=== PATIENT | female | born 1970 | race Caucasian/White ===

== ENCOUNTER 2016-12-11 09:04 | Emergency (ER) | payer BC ==
[~2016-12-11] VITALS: Ht 165.1 cm; Wt 107.5 kg
[~2016-12-11 09:04] MED LIST: ALPR0.5T7; CITA40TA11; CYCL10TA9; FAMO-119 PO; GLIM4TAB; HYDR-3816 PO; LISI10TA2; METF1000; OMEP40CA36 PO; OXYC-197 PO; PROM25TA14; VALA10004 PO
[2016-12-11 09:36] LABS: BASOPHILS % (AUTO) 0 % (0-10); EOSINOPHILS # (AUTO) 0.1 10^3/uL (0.0-0.3); EOSINOPHILS % (AUTO) 1 % (0-10); LYMPHOCYTES # (AUTO) 1.6 X 10^3 (1.0-4.0); LYMPHOCYTES % (AUTO) 30 % (12-44); MEAN CORPUSCULAR HEMOGLOBIN 27 PG (25-34); MEAN CORPUSCULAR HGB CONC 32 G/DL (32-36); MEAN CORPUSCULAR VOLUME 83 FL (80-99); MEAN PLATELET VOLUME 8.9 FL (7.4-10.4); MONOCYTES # (AUTO) 0.4 X 10^3 (0.0-1.0); MONOCYTES % (AUTO) 7 % (0-12); NEUTROPHILS # (AUTO) 3.2 X 10^3 (1.8-7.8); NEUTROPHILS % (AUTO) 62 % (42-75); PLATELET COUNT 316 10^3/uL (130-400); RED BLOOD COUNT 4.44 10^6/uL (4.35-5.85); RED CELL DISTRIBUTION WIDTH 15.3 % (10.0-14.5); WHITE BLOOD COUNT 5.1 10^3/uL (4.3-11.0)
--- NOTE | 2016-12-11 09:36 | ED Cardiac General ---
History of Present Illness General Chief Complaint: Chest Pain Stated Complaint: CHEST PAIN Source: patient Exam Limitations: no limitations History of Present Illness Time seen by provider: 09:34 Initial Comments Patient developed rapid heart rate, palpitations and mild anterior chest pressure shortly after taking Hydroxycut Hardcore dietary supplement. 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 Her coworkers did an EKG there which showed RDF@114 beats a minute without ischemia. She is feeling a little better on arrival here. She denies shortness of breath or chest pain currently. No vomiting or diarrhea. No cough. Allergies and Home Medications Allergies Coded Allergies: NSAIDS (Non-Steroidal Anti-Inflamma (Verified Adverse Reaction, Unknown, ) UNABLE TO TAKE DUE TO GASTRIC SURG Home Medications Alprazolam 0.5 Mg Tablet, #60 (Reported) Citalopram Hydrobromide 40 Mg Tablet, #30 (Reported) Cyclobenzaprine HCl 10 Mg Tablet, #60 (Reported) Glimepiride 4 Mg Tablet, #60 (Reported) Hydrocodone/Acetaminophen 1 Each Tablet, 1 EACH PO Q4H PRN for PAIN, (Reported) Lisinopril 10 Mg Tablet, #30 (Reported) Metformin HCl 1,000 Mg Tablet, #60 (Reported) Omeprazole 40 Mg Capsule.dr, 40 MG PO DAILY, #30 Ref 0 Prescribed by: LOKI KNIGHT on 09/26/15 1650 Oxycodone HCl/Acetaminophen 1 Each Tablet, 1 EACH PO Q4H PRN for PAIN, #20 Ref 0 Prescribed by: LOKI KNIGHT on 09/26/15 1650 Promethazine HCl 25 Mg Tablet, #21 (Reported) Valacyclovir HCl 1,000 Mg Tablet, 1,000 MG PO Q8H, #30 Ref 0 Prescribed by: LOKI KNIGHT on 09/26/15 1650 Review of Systems Constitutional: no symptoms reported EENTM: No Symptoms Reported Respiratory: No Symptoms Reported Cardiovascular: Chest Pain, Palpitations Gastrointestinal: No Symptoms Reported Genitourinary: No Symptoms Reported Musculoskeletal: no symptoms reported All Other Systems Reviewed Negative Unless Noted: Yes Past Ymapplg-Yicwss-Xboasr Hx Patient Social History Alcohol Use: Denies Use Recreational Drug Use: No Smoking Status: Never a Smoker Surgeries HX Surgeries: Yes (D&C x5) Surgeries: Abdominal, Appendectomy, Gallbladder, Hysterectomy Respiratory Hx Respiratory Disorders: No Cardiovascular Hx Cardiac Disorders: Yes Cardiac Disorders: Hypertension Neurological Hx Neurological Disorders: Yes Neurological Disorders: Headaches /Migraines 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 Genitourinary Hx Genitourinary Disorders: No Gastrointestinal Hx Gastrointestinal Disorders: No Musculoskeletal Hx Musculoskeletal Disorders: No Endocrine Hx Endocrine Disorders: Yes Endocrine Disorders: Diabetes, Non-Insulin dep HEENT HX ENT Disorders: No Psychosocial Hx Psychiatric Problems: Yes Behavioral Health Disorders: Anxiety, Depression Reviewed Nursing Assessment Reviewed/Agree w Nursing PMH: Yes Family Medical History Significant Family History: No Pertinent Family Hx Physical Exam Vital Signs Vital Sign - Last 12Hours 12/11/16 09:04 Temp 98.9 Pulse 100 Resp 18 B/P (MAP) 131/80 Capillary Refill : General Appearance: No Apparent Distress, WD/WN HEENT: PERRL/EOMI, Pharynx Normal Neck: Supple Respiratory: Lungs Clear, Normal Breath Sounds Cardiovascular: Regular Rate, Rhythm, No Edema, No Gallop, Normal Peripheral Pulses Gastrointestinal: Soft Extremity: Normal Inspection Neurologic/Psychiatric: Alert, No Motor/Sensory Deficits Skin: Normal Color, Warm/Dry Progress/Results/Core Measures Results/Orders Lab Results Laboratory Tests Test 12/11/16 09:29 Range/Units White Blood Count 5.1 4.3-11.0 10^3/uL Red Blood Count 4.44 4.35-5.85 10^6/uL Hemoglobin 11.8 11.5-16.0 G/DL Hematocrit 37 35-52 % Mean Corpuscular Volume 83 80-99 FL Mean Corpuscular Hemoglobin 27 25-34 PG Mean Corpuscular Hemoglobin Concent 32 32-36 G/DL Red Cell Distribution Width 15.3 H 10.0-14.5 % Platelet Count 316 130-400 10^3/uL Mean Platelet Volume 8.9 7.4-10.4 FL Neutrophils (%) (Auto) 62 42-75 % Lymphocytes (%) (Auto) 30 12-44 % Monocytes (%) (Auto) 7 0-12 % Eosinophils (%) (Auto) 1 0-10 % Basophils (%) (Auto) 0 0-10 % Neutrophils # (Auto) 3.2 1.8-7.8 X 10^3 Lymphocytes # (Auto) 1.6 1.0-4.0 X 10^3 Monocytes # (Auto) 0.4 0.0-1.0 X 10^3 Eosinophils # (Auto) 0.1 0.0-0.3 10^3/uL Basophils # (Auto) 0.0 0.0-0.1 10^3/uL Prothrombin Time 12.7 12.2-14.7 SEC INR Comment 1.0 0.8-1.4 Activated Partial Thromboplast Time 24 24-35 SEC Sodium Level 134 L 135-145 MMOL/L Potassium Level 4.2 3.6-5.0 MMOL/L Chloride Level 101 98-107 MMOL/L Carbon Dioxide Level 21 21-32 MMOL/L Anion Gap 12 5-14 MMOL/L Blood Urea Nitrogen 16 7-18 MG/DL Creatinine 1.10 0.60-1.30 MG/DL Estimat Glomerular Filtration Rate 53 BUN/Creatinine Ratio 15 Glucose Level 273 H 70-105 MG/DL Calcium Level 9.0 8.5-10.1 MG/DL Magnesium Level 1.7 L 1.8-2.4 MG/DL Total Bilirubin 0.3 0.1-1.0 MG/DL Aspartate Amino Transf (AST/SGOT) 15 5-34 U/L Alanine Aminotransferase (ALT/SGPT) 19 0-55 U/L Alkaline Phosphatase 58 40-136 U/L Troponin I < 0.30 <0.30 NG/ML Total Protein 6.6 6.4-8.2 G/DL Albumin 3.8 3.2-4.5 G/DL Labs were reviewed My Orders Orders - BRIAN MOCK MD Cbc With Automated Diff (12/11/16 09:11) Magnesium (12/11/16 09:11) Chest 1 View, Ap/Pa Only (12/11/16 09:11) Ekg Tracing (12/11/16 09:11) Cardiac Profile 1 (12/11/16 09:11) Comprehensive Metabolic Panel (12/11/16 09:11) Protime With Inr (12/11/16 09:11) Partial Thromboplastin Time (12/11/16 09:11) O2 (12/11/16 09:11) Monitor-Rhythm Ecg Trace Only (12/11/16 09:11) Saline Lock/Iv-Start (12/11/16 09:11) Vital Signs/I&O Vital Sign - Last 12Hours 12/11/16 09:04 Temp 98.9 Pulse 100 Resp 18 B/P (MAP) 131/80 Progress Note : Time: 10:13 Progress Note Heart rate 95 bpm, blood pressure 127/73. Feels better. advised to avoid Hydroxycut or other dietary supplements in the future. ECG Initial ECG Rhythm: S.Tach Initial ECG Intervals: Normal Initial ECG Impression: Nonspecific Changes Diagnostic Imaging Comments Date of Exam: 12/11/16 CHEST 1 VIEW, AP/PA ONLY Portable AP view of the chest Indication: Chest pain Comparison 09/26/15 Findings: The lungs are clear. The heart size is normal. There is no effusion or pneumothorax The mediastinum and alem appear unremarkable. Impression: Unremarkable study. Departure Impression Impression: Primary Impression: Chest pain Additional Impression: Sinus tachycardia Disposition: 01 HOME, SELF-CARE Condition: Stable Departure-Patient Inst. Referrals: PORSHA CARLSON DO (PCP/Family) Primary Care Physician Patient Instructions: Chest Pain (DC) BRIAN MOCK MD Dec 11, 2016 09:36
[2016-12-11 09:50] LABS: PROTHROMBIN TIME PATIENT 12.7 SEC (12.2-14.7)
[2016-12-11 09:59] LABS: ALANINE AMINOTRANSFERASE 19 U/L (0-55); ALBUMIN 3.8 G/DL (3.2-4.5); ANION GAP 12 MMOL/L (5-14); ASPARTATE AMINO TRANSFERASE 15 U/L (5-34); BILIRUBIN,TOTAL 0.3 MG/DL (0.1-1.0); BLOOD UREA NITROGEN 16 MG/DL (7-18); BUN/CREATININE RATIO 15; CARBON DIOXIDE 21 MMOL/L (21-32); CHLORIDE 101 MMOL/L (98-107); GFR ESTIMATED 53; GLUCOSE 273 MG/DL (70-105); MAGNESIUM 1.7 MG/DL (1.8-2.4); POTASSIUM 4.2 MMOL/L (3.6-5.0); SODIUM 134 MMOL/L (135-145); TOTAL PROTEIN 6.6 G/DL (6.4-8.2)
--- NOTE | 2016-12-11 10:04 | Diagnostic Imaging Report ---
Portable AP view of the chest Indication: Chest pain Comparison 09/26/15 Findings: The lungs are clear. The heart size is normal. There is no effusion or pneumothorax The mediastinum and alem appear unremarkable. Impression: Unremarkable study. Dictated by: Dictated on workstation # [id number]
[2016-12-11 10:25] VITALS: BP 133/57
--- OUTSIDE RECORDS SUMMARY | 2016-12-13 12:11 | XMS REPORT | Continuity of Care Document ---
Author Author [facility] Organization [facility] Address Unknown Phone Unavailable Allergies Active Description Code Type Severity Reaction Onset Reported/Identified Relationship to Patient Clinical Status Yes No Known Drug Allergies [id number] Drug Allergy Unknown N/ A 09/26/2015 Medications Problems Date Dx Coded Attending Type Code Diagnosis Diagnosed By 09/26/2015 LOKI LIMON Ot K29.70 09/26/2015 LOKI LIMON Ot R07.89 12/26/2015 ANJANA OLIVAREZ Ot Z12.31 01/08/2016 ANJANA OLIVAREZ Ot Z12.31 ENCNTR SCREEN MAMMOGRAM FOR MALIGNANT NE 01/13/2016 ANJANA OLIVAREZ Ot R92.8 OTH ABN AND INCONCLUSIVE FINDINGS ON DX 01/22/2016 ANJANA OLIVAREZ Ot R92.8 OTH ABN AND INCONCLUSIVE FINDINGS ON DX Procedures Results Test Result Range Complete blood count (CBC) with automated white blood cell (WBC) differential - 12/11/16 09:29 Blood leukocytes automated count (number/volume) 5.1 10*3/ uL 4.3-11.0 Blood erythrocytes automated count (number/volume) 4.44 10*6 /uL 4.35-5.85 Venous blood hemoglobin measurement (mass/volume) 11.8 g/dL 11.5-16.0 Blood hematocrit (volume fraction) 37 % 35-52 Automated erythrocyte mean corpuscular volume 83 [foz_us] 80-99 Automated erythrocyte mean corpuscular hemoglobin (mass per erythrocyte) 27 pg 25-34 Automated erythrocyte mean corpuscular hemoglobin concentration measurement ( mass/volume) 32 g/dL 32-36 Automated erythrocyte distribution width ratio 15.3 % 10.0-14.5 Automated blood platelet count (count/volume) 316 10*3/uL 130-400 Automated blood platelet mean volume measurement 8.9 [foz_us ] 7.4-10.4 Automated blood neutrophils/100 leukocytes 62 % 42-75 Automated blood lymphocytes/100 leukocytes 30 % 12-44 Blood monocytes/100 leukocytes 7 % 0-12 Automated blood eosinophils/100 leukocytes 1 % 0-10 Automated blood basophils/100 leukocytes 0 % 0-10 Blood neutrophils automated count (number/volume) 3.2 10*3 1.8-7.8 Blood lymphocytes automated count (number/volume) 1.6 10*3 1.0-4.0 Blood monocytes automated count (number/volume) 0.4 10*3 0.0-1.0 Automated eosinophil count 0.1 10*3/uL 0.0-0.3 Automated blood basophil count (count/volume) 0.0 10*3/uL 0.0-0.1 PT panel in platelet poor plasma by coagulation assay - 12/11/16 09:29 Prothrombin time (PT) in platelet poor plasma by coagulation assay 12.7 s 12.2-14.7 INR in platelet poor plasma or blood by coagulation assay 1.0 0.8-1.4 Activated partial thromboplastin time (aPTT) in platelet poor plasma bycoagulation assay - 12/11/16 09:29 Activated partial thromboplastin time (aPTT) in platelet poor plasma bycoagulation assay 24 s 24-35 Comprehensive metabolic panel - 12/11/16 09:29 Serum or plasma sodium measurement (moles/volume) 134 mmol/ L 135-145 Serum or plasma potassium measurement (moles/volume) 4.2 mmol/L 3.6-5.0 Serum or plasma chloride measurement (moles/volume) 101 mmol /L 98-107 Carbon dioxide 21 mmol/L 21-32 Serum or plasma anion gap determination (moles/volume) 12 mmol/L 5-14 Serum or plasma urea nitrogen measurement (mass/volume) 16 mg/dL 7-18 Serum or plasma creatinine measurement (mass/volume) 1.10 mg /dL 0.60-1.30 Serum or plasma urea nitrogen/creatinine mass ratio 15 NRG Serum or plasma creatinine measurement with calculation of estimated glomerular filtration rate 53 NRG Serum or plasma glucose measurement (mass/volume) 273 mg/dL 70-105 Serum or plasma calcium measurement (mass/volume) 9.0 mg/dL 8.5-10.1 Serum or plasma total bilirubin measurement (mass/volume) 0.3 mg/dL 0.1-1.0 Serum or plasma alkaline phosphatase measurement (enzymatic activity/volume) 58 U/L 40-136 Serum or plasma aspartate aminotransferase measurement (enzymatic activity/ volume) 15 U/L 5-34 Serum or plasma alanine aminotransferase measurement (enzymatic activity/volume ) 19 U/L 0-55 Serum or plasma protein measurement (mass/volume) 6.6 g/dL 6.4-8.2 Serum or plasma albumin measurement (mass/volume) 3.8 g/dL 3.2-4.5 Magnesium - 12/11/16 09:29 Magnesium 1.7 mg/dL 1.8-2.4 Serum or plasma troponin i.cardiac measurement (mass/volume) - 12/11/16 09:29 Serum or plasma troponin i.cardiac measurement (mass/volume) < ng/mL <0.30 Encounters ACCT No. Visit Date/Time Discharge Status Pt. Type Provider Facility Loc./Unit Complaint [id number] 09/26/2015 11:02:00 2015 17:09:00 DIS Emergency ANTONIA OLEARY, LOKI Corona [facility] ER [id number] 12/11/2016 09:39:00 Document Registration [id number] 01/10/2016 07:33:00 ACT Outpatient ANJANA OLIVAREZ [facility] RAD [id number] 12/25/2015 10:10:00 ACT Outpatient ANJANA OLIVAREZ [facility] RAD
== END 2016-12-11 10:27 | disposition home or self-care (01) ==
LOC: EDUNIT# 09:04 → ER 09:07
DX: R07.9 Chest pain, unspecified (principal); R00.2 Palpitations; I10 Essential (primary) hypertension; E11.9 Type 2 diabetes mellitus without complications; Z79.84 Long term (current) use of oral hypoglycemic drugs; Z79.899 Other long term (current) drug therapy
CPT/HCPCS: 36415; 71010; 80053; 83735; 84484; 85025; 85610; 85730; 93005; 93041

== ENCOUNTER → 2017-02-12 | Outpatient (CLI) | payer BC ==
--- NOTE | 2017-02-16 09:31 | Diagnostic Imaging Report ---
Bilateral screening mammogram The current study was also evaluated with a Computer Aided Detection (CAD) system. Indication: Screening. No current complaints stated on the questionnaire. COMPARISON: 01/10/16. FINDINGS: The breasts are composed of heterogeneously dense parenchyma which may decrease mammographic sensitivity. The prominent vascular calcifications are again noted without significant change. Allowing for technique and positional differences, no suspicious change is seen. IMPRESSION: No significant change. ACR BI-RADS Category 2: Benign findings. Result letter will be mailed to the patient. Note: At least 10% of breast cancer is not imaged by mammography. Dictated by: Dictated on workstation # [id number]
== END ==
LOC: RAD 13:13
DX: Z12.31 Encounter for screening mammogram for malignant neoplasm of breast (principal)
CPT/HCPCS: 77067

== ENCOUNTER 2017-02-19 12:03 | Emergency (ER) | payer BC ==
[~2017-02-19] VITALS: Ht 165.1 cm; Wt 107.5 kg
[2017-02-19] MEDS ORDERED: ROPI0.5T2 (12:14)
[2017-02-19] MEDS ORDERED: METR500T21 (12:14)
[2017-02-19] MEDS ORDERED: DULO60CA58 (12:14)
--- NOTE | 2017-02-19 12:20 | ED General ---
General Chief Complaint: Glucose Problems Stated Complaint: ELEVATED BLOOD SUGAR Nursing Triage Note: Patient reports having recently having an infection and since her glucose has been elevated. Nursing Sepsis Screen: No Definite Risk Source of Information: Patient Exam Limitations: No Limitations History of Present Illness Time Seen by Provider: 12:19 Initial Comments To ER from [facility] walk-in clinic with hyperglycemia. Her blood sugar was found to be too high to read there this morning on fingerstick. She was given 2 500 mm boluses of fluid and some Zofran. The nausea and vomiting subsided. Blood sugar upon arrival to ER is 396. She is treated for her diabetes with oral antidiabetic's. No insulin use. She states that she's had a partial hysterectomy but has had some whitish vaginal discharge for the past few days. She saw her RADIOGRAPHER TECHNOLOGIST who is Dr. Patiño in [place] yesterday. He diagnosed her with bacterial vaginosis and gave her 2 g of Flagyl last night orally. She denies any fevers or pain. Timing/Duration: 1-2 Days Severity: Moderate Associated Systoms: Nausea/Vomiting Allergies and Home Medications Allergies Coded Allergies: NSAIDS (Non-Steroidal Anti-Inflamma (Verified Adverse Reaction, Unknown, ) UNABLE TO TAKE DUE TO GASTRIC SURG Home Medications Duloxetine HCl 60 Mg Capsule., #30 (Reported) Glimepiride 4 Mg Tablet, #60 (Reported) Lisinopril 10 Mg Tablet, #30 (Reported) Metformin HCl 1,000 Mg Tablet, #60 (Reported) Metronidazole 500 Mg Tablet, #4 (Reported) Ropinirole HCl 0.5 Mg Tablet, #60 (Reported) Constitutional: see HPI EENTM: see HPI Respiratory: no symptoms reported Cardiovascular: no symptoms reported Genitourinary: no symptoms reported Musculoskeletal: no symptoms reported Skin: no symptoms reported Psychiatric/Neurological: No Symptoms Reported Hematologic/Lymphatic: No Symptoms Reported Past Jxqrbay-Slxncx-Rklghh Hx Patient Social History Alcohol Use: Denies Use Recreational Drug Use: No Recent Foreign Travel: No Contact w/Someone Who Travel: No Recent Infectious Disease Expo: No Recent Hopitalizations: No Surgeries HX Surgeries: Yes (D&C x5 GASTRIC BY PASS) Surgeries: Abdominal, Appendectomy, Gallbladder, Hysterectomy Respiratory Hx Respiratory Disorders: No Cardiovascular Hx Cardiac Disorders: Yes Cardiac Disorders: Hypertension Neurological Hx Neurological Disorders: Yes Neurological Disorders: Headaches /Migraines Reproductive System [employer] History: Hysterectomy Genitourinary Hx Genitourinary Disorders: No Gastrointestinal Hx Gastrointestinal Disorders: No Musculoskeletal Hx Musculoskeletal Disorders: Yes Endocrine Hx Endocrine Disorders: Yes Endocrine Disorders: Diabetes, Non-Insulin dep HEENT HX ENT Disorders: No Psychosocial Hx Psychiatric Problems: Yes Behavioral Health Disorders: Anxiety, Depression Family Medical History Significant Family History: No Pertinent Family Hx Physical Exam Vital Signs Vital Sign - Last 12Hours 02/19/17 12:09 Temp 98.3 Pulse 99 Resp 18 B/P (MAP) 142/98 Pulse Ox 99 O2 Delivery Room Air Capillary Refill : Less Than 3 Seconds General Appearance: No Apparent Distress, WD/WN Eyes: Bilateral Eye EOMI, Bilateral Eye Normal Inspection, Bilateral Eye PERRL HEENT: PERRL/EOMI, TMs Normal Neck: Full Range of Motion, Normal Inspection Respiratory: Normal Breath Sounds, No Accessory Muscle Use, No Respiratory Distress Cardiovascular: Regular Rate, Rhythm, Normal Peripheral Pulses Gastrointestinal: Non Tender, Soft Extremity: Normal Capillary Refill, Normal Inspection Neurologic/Psychiatric: Alert, Oriented x3, No Motor/Sensory Deficits Skin: Normal Color, Warm/Dry Progress/Results/Core Measures Results/Orders Lab Results Laboratory Tests Test 02/19/17 12:10 02/19/17 12:13 02/19/17 13:20 02/19/17 13:24 Range/Units White Blood Count 9.3 4.3-11.0 10^3/uL Red Blood Count 4.57 4.35-5.85 10^6/uL Hemoglobin 13.0 11.5-16.0 G/DL Hematocrit 39 35-52 % Mean Corpuscular Volume 85 80-99 FL Mean Corpuscular Hemoglobin 28 25-34 PG Mean Corpuscular Hemoglobin Concent 34 32-36 G/DL Red Cell Distribution Width 14.0 10.0-14.5 % Platelet Count 294 130-400 10^3/uL Mean Platelet Volume 9.3 7.4-10.4 FL Neutrophils (%) (Auto) 81 H 42-75 % Lymphocytes (%) (Auto) 13 12-44 % Monocytes (%) (Auto) 5 0-12 % Eosinophils (%) (Auto) 1 0-10 % Basophils (%) (Auto) 0 0-10 % Neutrophils # (Auto) 7.5 1.8-7.8 X 10^3 Lymphocytes # (Auto) 1.3 1.0-4.0 X 10^3 Monocytes # (Auto) 0.5 0.0-1.0 X 10^3 Eosinophils # (Auto) 0.1 0.0-0.3 10^3/uL Basophils # (Auto) 0.0 0.0-0.1 10^3/uL Sodium Level 134 L 135-145 MMOL/L Potassium Level 4.5 3.6-5.0 MMOL/L Chloride Level 101 98-107 MMOL/L Carbon Dioxide Level 21 21-32 MMOL/L Anion Gap 12 5-14 MMOL/L Blood Urea Nitrogen 14 7-18 MG/DL Creatinine 1.18 0.60-1.30 MG/DL Estimat Glomerular Filtration Rate 49 BUN/Creatinine Ratio 12 Glucose Level 454 *H 70-105 MG/DL Calcium Level 8.7 8.5-10.1 MG/DL Total Bilirubin 0.3 0.1-1.0 MG/DL Aspartate Amino Transf (AST/SGOT) 15 5-34 U/L Alanine Aminotransferase (ALT/SGPT) 18 0-55 U/L Alkaline Phosphatase 54 40-136 U/L Total Protein 6.8 6.4-8.2 G/DL Albumin 3.7 3.2-4.5 G/DL Glucometer 396 H 245 H 70-110 MG/DL Urine Color YELLOW Urine Clarity CLEAR Urine pH 5 5-9 Urine Specific [place] 1.010 L 1.016-1.022 Urine Protein NEGATIVE NEGATIVE Urine Glucose (UA) 4+ H NEGATIVE Urine Ketones NEGATIVE NEGATIVE Urine Nitrite NEGATIVE NEGATIVE Urine Bilirubin NEGATIVE NEGATIVE Urine Urobilinogen NORMAL NORMAL MG/DL Urine Leukocyte Esterase 1+ H NEGATIVE Urine RBC (Auto) NEGATIVE NEGATIVE Urine RBC NONE /HPF Urine WBC 2-5 /HPF Urine Squamous Epithelial Cells 2-5 /HPF Urine Crystals NONE /LPF Urine Bacteria TRACE /HPF Urine Casts NONE /LPF Urine Mucus NEGATIVE /LPF Urine Culture Indicated NO My Orders Orders - JEANNINE CLARKE APRN Cbc With Automated Diff (02/19/17 12:17) Comprehensive Metabolic Panel (02/19/17 12:17) Saline Lock/Iv-Start (02/19/17 12:17) Ns Iv 1000 Ml (Sodium Chloride 0.9%) (02/19/17 12:30) Insulin (Regular) Human (Humulin R (Per (02/19/17 12:30) Ua Culture If Indicated (02/19/17 12:28) Accucheck Stat ONCE (02/19/17 13:17) Accucheck Stat ONCE (02/19/17 13:17) Medications Given in ED Current Medications Medications Dose Ordered Sig/Lidya Route Start Time Stop Time Status Last Admin Dose Admin Insulin Human Regular 4 unit ONCE ONCE IV 02/19/17 12:30 02/19/17 12:31 DC 02/19/17 12:22 4 UNIT Vital Signs/I&O Vital Sign - Last 12Hours 02/19/17 12:09 Temp 98.3 Pulse 99 Resp 18 B/P (MAP) 142/98 Pulse Ox 99 O2 Delivery Room Air Blood Pressure Mean: 113 Departure Impression Impression: Primary Impression: Hyperglycemia Disposition: 01 HOME, SELF-CARE Condition: Stable Departure-Patient Inst. Decision time for Depature: 13:45 Referrals: PORSHA CARLSON DO (PCP/Family) Primary Care Physician Patient Instructions: Hyperglycemia, Adult Add. Discharge Instructions: 1. Go home, continue to drink plenty of fluids. Check your blood sugar 2-3 times throughout the remainder of today.. Return to ER for any worsening All discharge instructions reviewed with patient and/or family. Voiced understanding. JEANNINE CLARKE APRN Feb 19, 2017 12:20
[2017-02-19] MEDS: inSUlin (REGULAR) HUMAN 1 UNIT/0.01 ML (CHARGE PER UNIT) IV ONE (12:22)
[2017-02-19] MEDS: NS IV 1000 ML 1,000 ML IV SCH (12:23)
[2017-02-19 12:25] LABS: BASOPHILS % (AUTO) 0 % (0-10); EOSINOPHILS # (AUTO) 0.1 10^3/uL (0.0-0.3); EOSINOPHILS % (AUTO) 1 % (0-10); LYMPHOCYTES # (AUTO) 1.3 X 10^3 (1.0-4.0); LYMPHOCYTES % (AUTO) 13 % (12-44); MEAN CORPUSCULAR HEMOGLOBIN 28 PG (25-34); MEAN CORPUSCULAR HGB CONC 34 G/DL (32-36); MEAN CORPUSCULAR VOLUME 85 FL (80-99); MEAN PLATELET VOLUME 9.3 FL (7.4-10.4); MONOCYTES # (AUTO) 0.5 X 10^3 (0.0-1.0); MONOCYTES % (AUTO) 5 % (0-12); NEUTROPHILS # (AUTO) 7.5 X 10^3 (1.8-7.8); NEUTROPHILS % (AUTO) 81 % (42-75); PLATELET COUNT 294 10^3/uL (130-400); RED BLOOD COUNT 4.57 10^6/uL (4.35-5.85); WHITE BLOOD COUNT 9.3 10^3/uL (4.3-11.0)
[2017-02-19 12:38] LABS: ALBUMIN 3.7 G/DL (3.2-4.5); BILIRUBIN,TOTAL 0.3 MG/DL (0.1-1.0); CALCIUM 8.7 MG/DL (8.5-10.1); CREATININE SERUM 1.18 MG/DL (0.60-1.30); POTASSIUM 4.5 MMOL/L (3.6-5.0); TOTAL PROTEIN 6.8 G/DL (6.4-8.2)
[2017-02-19 13:36] LABS: BILIRUBIN,URINE NEGATIVE (NEGATIVE); KETONES,URINE NEGATIVE (NEGATIVE); LEUKOCYTE ESTERASE ,URINE 1+ (NEGATIVE); NITRITE,URINE NEGATIVE (NEGATIVE); PH,URINE 5 (5-9); PROTEIN,URINE NEGATIVE (NEGATIVE); UROBILINOGEN,URINE NORMAL (NORMAL)
[2017-02-19 13:56] VITALS: BP 119/72
== END 2017-02-19 13:57 | disposition home or self-care (01) ==
LOC: EDUNIT# 12:03 → ER 12:06
DX: E11.65 Type 2 diabetes mellitus with hyperglycemia (principal); I10 Essential (primary) hypertension; Z79.84 Long term (current) use of oral hypoglycemic drugs; Z79.899 Other long term (current) drug therapy
CPT/HCPCS: 36415; 80053; 81000; 82962; 85025

== ENCOUNTER → 2017-12-22 | Outpatient (CLI) | payer BC ==
[~2017-12-22] MED LIST changes: +DULO60CA58; +HYDR-34 PO; -HYDR-3816 PO; +METR500T21; +ROPI0.5T2
--- NOTE | 2017-12-22 08:36 | Diagnostic Imaging Report ---
CLINICAL INDICATION: Patient with memory loss. EXAM: Axial CT scan of brain performed without IV contrast. COMPARISON: None. FINDINGS: There is no evidence of acute cerebral infarct, intracranial hemorrhage, or gross mass effect. The brain parenchymal volume appears appropriate for patient's age. There is normal burns-white matter distinction. There is no significant midline shift or herniation. There is no evidence of hydrocephalus. The basal cisterns are unremarkable. The skull, extracranial soft tissue, and orbits are unremarkable. There is minimal ethmoid sinus mucosal thickening. Temporal bones show no significant abnormality. IMPRESSION: Minimal ethmoid sinus mucosal thickening. Otherwise, unremarkable CT scan of brain. Dictated by: Dictated on workstation # [id number]
== END ==
LOC: RAD 08:05
PROVIDERS: ATTEND Nurse Practitioner Family
DX: R41.3 Other amnesia (principal); G44.52 New daily persistent headache (NDPH)
CPT/HCPCS: 70450

== ENCOUNTER 2018-01-15 14:58 | Emergency (ER) | payer BC ==
[~2018-01-15] VITALS: Ht 165.1 cm; Wt 102.5 kg
[~2018-01-15 14:58] MED LIST changes: -METF1000; +METF10002
--- OUTSIDE RECORDS SUMMARY | 2018-01-15 15:03 | XMS REPORT ---
Author Author CLAUDIA JACOBO Organization [facility] Address [address] [place] [address] Care Team Providers Care Information Assurance Officer Name Role Phone CLAUDIA JACOBO Unavailable PROBLEMS Type Condition ICD9-CM Code [id number] Code Onset Dates Condition Status SNOMED Code Problem Chronic pain syndrome G89.4 Active 498539817 Problem Diabetes E11.9 Active 908947132 Problem Anxiety F41.9 Active 73172724 Problem Essential hypertension I10 Active 58247149 Problem Severe single current episode of major depressive disorder, 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 Active 93370592 Problem Chronic tension-type headache, intractable G44.221 Active 491062682 Problem Obesity (BMI 30-39.9) E66.9 Active 094960218 Problem Restless legs G25.81 Active 54364597 ALLERGIES No Known Allergies SOCIAL HISTORY Never Assessed PLAN OF CARE Activity Details Follow Up prn Reason: VITAL SIGNS Height 65 in 2017-02-19 Weight 247.8 lbs 2017-02-19 Temperature 97.0 degrees Fahrenheit 2017-02-19 Heart Rate 104 bpm 2017-02-19 Respiratory Rate 22 2017-02-19 BMI 41.23 kg/m2 2017-02-19 Blood pressure systolic 136 mmHg 2017-02-19 Blood pressure diastolic 82 mmHg 2017-02-19 MEDICATIONS Medication Instructions Dosage Frequency Start Date End Date Duration Status Xanax 0.5 MG Orally Twice a day 1 tablet 12h Active Ropinirole HCl 0.5 MG Orally Once a day 1 tablet 1 to 3 hours before bedtime 24h Active Metformin HCl 1000 MG Orally Twice a day 1 tablet with meals 12h Active Paradox 7.5-325 MG Orally every 6 hrs 1 tablet as needed 6h Active Cymbalta 60 MG Orally Once a day 1 capsule 24h Active Lisinopril 10 MG Orally Once a day 1 tablet 24h Active GlyBURIDE 5 MG Orally Once a day 1 tablet with breakfast or the first main meal of the day 24h Active RESULTS Name Result Date Reference Range UA LONG DIP (IN HOUSE) 2017-02-19 Lot # [id number] Exp date 2017 04 30 Clarity clear Color 1.005 Odor none GLU 2+ REECE negative KET negative SG <1.005 BLO negative pH 6.0 Protein negative URO 0.2 NIT negative CHEPE negative Lot # [id number] Exp date 2017 10 A1C (IN HOUSE) 2017-02-19 A1C IN HOUSE 10.3 4.3 - 5.6 % Previous A1c Lot [id number] Exp date 11/2018 GLUCOSE FINGERSTICK (IN HOUSE) 2017-02-19 GLU FINGERSTICK 419mg/dl PC + Lot # [id number] Exp date 10/2017 PROCEDURES Procedure Date Ordered Result Body Site IV INFUSION 2017-02-19 N/A GLUCOSE BLOOD TEST February 19, 2017 THER/PROPH/DIAG INJ, IV PUSH February 19, 2017 HYDRATION IV INFUSION, INIT February 19, 2017 URINALYSIS, AUTO, W/O SCOPE February 19, 2017 ZOFRAN (IV) 2 MG/ML (PER 1 MG) 40 MG/20 ML February 19, 2017 GLYCATED HEMOGLOBIN TEST February 19, 2017 IMMUNIZATIONS Vaccine Route Administration Date Status ZOFRAN (IV) 2 MG/ML (PER 1 MG) 40 MG/20 ML IV Intravenous February 19, 2017 Administered MEDICAL (GENERAL) HISTORY Type Description Date Medical History HTN Medical History RLS Medical History Diabetes Medical History Fibromyalgia Medical History Depression Medical History Anxiety Surgical History Gallbladder Surgical History Appendectomy Surgical History Exploratory Lap Surgical History Foot Surgery Surgical History Gastric Bypass Surgical History D&C X 5 Surgical History TVH Surgical History Abdominal Plasty Hospitalization History Post Surgeries
--- OUTSIDE RECORDS SUMMARY | 2018-01-15 15:04 | XMS REPORT ---
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 Name Role Phone VINAY Rooney Unavailable PROBLEMS Type Condition ICD9-CM Code [id number] Code Onset Dates Condition Status SNOMED Code Problem Essential hypertension I10 Active 97156170 Problem roasterman 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.4 Active 774114820 Problem Type 2 diabetes mellitus without complications E11.9 Active 383766838 Problem Memory changes R41.3 Active 470980793 Problem New daily persistent headache G44.52 Active 484692309961380 Problem Grief F43.20 Active 006611646 Problem Generalized anxiety disorder F41.1 Active 04760804 Problem Hypersomnia G47.10 Active 00006999 Problem Moderate episode of recurrent major depressive disorder F33.1 Active 235852890 Problem Restless legs G25.81 Active 22624135 Problem Chronic pain syndrome G89.4 Active 524657754 Problem High serum estradiol R79.89 Active 009919721 Problem Chronic tension-type headache, intractable G44.221 Active 759934219 Problem History of vitamin D deficiency Z86.39 Active 694065163 Problem Obesity (BMI 30-39.9) E66.9 Active [id number] ALLERGIES No Known Allergies ENCOUNTERS Encounter Location Date Diagnosis [facility] [id number] [address] Dec, [facility] [id number], [place] [address] Dec, [facility] [id number] [place] [address] Nov, Moderate episode of recurrent major depressive disorder F33.1 and Generalized anxiety disorder F41.1 [facility] [id number] [place] [address] Nov, [place] [address] [place] [address] Nov, Chronic pain syndrome G89.4 ; Hypersomnia G47.10 ; Memory changes R41.3 ; New daily persistent headache G44.52 ; Post-menopausal Z78.0 and History of gastric surgery Z98.890 [place] [id number] [place] [address] Nov, [place] [id number] [place] [address] Nov, Chronic pain syndrome G89.4 [place] [id number] [place] [address] Oct, Moderate episode of recurrent major depressive disorder F33.1 and Generalized anxiety disorder F41.1 [place] [id number] [place] [address] Oct, Type 2 diabetes mellitus without complications E11.9 ; Essential hypertension I10 ; Restless legs G25.81 ; Chronic tension-type headache, intractable G44.221 ; Nasal congestion R09.81 ; penitentiary 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.4 and Chronic pain syndrome G89.4 [place] [id number] [place] [address] Oct, Moderate episode of recurrent major depressive disorder F33.1 [place] [id number] [place] [address] Oct, [place] [id number] [place] [address] Sep, Moderate episode of recurrent major depressive disorder F33.1 and Generalized anxiety disorder F41.1 [place] [id number] [place] [address] Sep, Moderate episode of recurrent major depressive disorder F33.1 ; Generalized anxiety disorder F41.1 and Grief F43.20 [place] [address], [place] [address] Sep, Moderate episode of recurrent major depressive disorder F33.1 [place] [id number] [place] [address] Sep, [place] [id number] [place] [address] Aug, Chronic pain syndrome G89.4 [place] [id number] [place] [address]- [address] Aug, [place] [id number] [place] [address] Aug, Moderate episode of recurrent major depressive disorder F33.1 ; Generalized anxiety disorder F41.1 and Grief F43.20 [place] [id number] [place] [address] Aug, [place] [id number] [place] [address] Aug, [place] [id number] [place] [address] Jul, Chronic pain syndrome G89.4 ; Positive depression screening Z13.89 ; Essential hypertension I10 ; Restless legs G25.81 ; Severe single current episode of major depressive disorder, 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 ; Anxiety F41.9 ; Chronic tension-type headache, intractable G44.221 ; Type 2 diabetes mellitus without complications E11.9 ; roasterman 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.4 ; Right elbow pain M25.521 and Family history of pancreatic cancer Z80.0 [place] [id number] [place] [address] Jun, Chronic pain syndrome G89.4 [place] [id number] [place] [address] May, Chronic pain syndrome G89.4 and Anxiety F41.9 [place] [id number] [place] [phone] Apr, Diabetes E11.9 ; Obesity (BMI 30-39.9) E66.9 ; Severe single current episode of major depressive disorder, 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 ; Restless legs G25.81 ; Essential hypertension I10 ; Chronic tension- type headache, intractable G44.221 ; Anxiety F41.9 ; Chronic pain syndrome G89.4 and Nausea R11.0 [facility] [id number] [address] Mar, Diabetes E11.9 ; Obesity (BMI 30-39.9) E66.9 ; Severe single current episode of major depressive disorder, 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 ; Restless legs G25.81 ; Essential hypertension I10 ; Chronic tension- type headache, intractable G44.221 ; Anxiety F41.9 and Chronic pain syndrome G89.4 [facility] [id number], [place] [address] Feb, Diaphoresis R61 ; Diabetes E11.9 ; Elevated blood sugar R73.9 and Acute vomiting R11.10 [facility] [address] [facility] [id number] [id number] Mar, Dental examination V72.2 IMMUNIZATIONS No Known Immunizations SOCIAL HISTORY Never Assessed REASON FOR VISIT Establish Care. Diabetes concerns. Blood sugar was over 500 a couple of months ago and was started on insulin by Dr Rosales. MARTÍN Oconnell PLAN OF CARE Activity Details Follow Up 4 Weeks Reason:diabetes, htn fasting labs VITAL SIGNS Height 65 in 2017-04-09 Weight 248 lbs 2017-04-09 Temperature 98.5 degrees Fahrenheit 2017-04-09 Heart Rate 88 bpm 2017-04-09 Respiratory Rate 18 2017-04-09 BMI 41.26 kg/m2 2017-04-09 Blood pressure systolic 110 mmHg 2017-04-09 Blood pressure diastolic 78 mmHg 2017-04-09 MEDICATIONS Medication Instructions Dosage Frequency Start Date End Date Duration Status Cyclobenzaprine HCl 10 mg Orally 2 times a day 1 tablet as needed 12h Active [place] 7.5-325 MG Orally every 6 hrs 1 tablet as needed 6h Mar, Active Xanax 0.5 MG Orally Twice a day 1 tablet 12h Active Topamax 25 MG Orally once per day x 7 then bid 1 tablet Mar, 30 day(s) Active Lisinopril 10 mg Orally Once a day 1 tablet 24h Active Phentermine HCl 37.5 MG Orally Once a day 1 capsule 24h Active Duloxetine HCl 60 mg Orally Once a day 1 capsule 24h Active Januvia 100 mg Orally Once a day 1 tablet 24h Mar, 30 day(s) Active Ropinirole HCl 0.5 MG Orally at bedtime 1-2 tablets Active Lantus SoloStar 100 UNIT/ML Subcutaneous at bedtime 14 units Active Metformin HCl 1000 MG Orally Twice a day 1 tablet with meals 12h Active RESULTS Name Result Date Reference Range A1C (IN HOUSE) 2017-04-09 A1C IN HOUSE 8.3 4.3 - 5.6 % Previous A1c 10.3 Lot [id number] Exp date 12/2018 PROCEDURES Procedure Date Ordered Result Body Site GLYCATED HEMOGLOBIN TEST April 09, 2017 INSTRUCTIONS MEDICATIONS ADMINISTERED No Known Medications MEDICAL (GENERAL) HISTORY Type Description Date Medical History HTN Medical History RLS Medical History Diabetes- Type 2 Medical History Fibromyalgia Medical History Depression Medical History Anxiety Medical History stress/clustered headaches Surgical History Gallbladder 1986 Surgical History Appendectomy Surgical History Exploratory Lap Surgical History Foot Surgery Surgical History Gastric Bypass Surgical History D&C X 5 Surgical History Partial hysterectomy Surgical History Abdominal Plasty Surgical History Carpal tunnel repair bilaterally and trigger finger release x2. 06/2017 Hospitalization History Post Surgeries Hospitalization History denies any past psych hospitalization
--- OUTSIDE RECORDS SUMMARY | 2018-01-15 15:04 | XMS REPORT | Continuity of Care Document ---
Author Author [facility] Organization [facility] Address Unknown Phone Unavailable Allergies Active Description Code Type Severity Reaction Onset Reported/Identified Relationship to Patient Clinical Status Yes NO KNOWN DRUG ALLERGIES UNKNOWN NO KNOWN DRUG ALLERG Yes No Known Drug Allergies [id number] Drug Allergy Unknown N/A 09/26/2015 Yes NSAIDS (Non-Steroidal Anti-Inflamma [id number] Drug Allergy Unknown N/A Medications Medication Packaging Start Date Stop Date Route Dosage Sig ALPRAZOLAM TAB 0.5 MG (XANAX) Dose(s) 06/03/2017 06/12/2017 QHS&2100 ROPINIROLE TAB 1 MG (REQUIP) Dose(s) 06/03/2017 06/09/2017 QHS&2100 NORMAL SALINE 1000CC IV BAG INJ 0.9 % (NS 1000CC IV BAG) ml 06/10/2017 06/11/2017 CONTINUOUSEVERY 0 Hour DULOXETINE CAP 30 MG (CYMBALTA) Dose(s) 06/10/2017 06/16/2017 QAM&0800 SITAGLIPTIN TAB 100 MG (JANUVIA) Dose(s) 06/10/2017 06/16/2017 QAM&0800 CEFAZOLIN VIAL INJ 1 GM (ANCEF) GM 06/10/2017 06/10/2017 ONCE&0945 LACTATED RINGERS 1000CC IV BAG INJ ml 06/10/2017 06/17/2017 CONTINUOUSEVERY 0 Hour LACTATED RINGERS 1000CC IV BAG INJ ml 08/05/2017 08/12/2017 CONTINUOUSEVERY 0 Hour NORMAL SALINE 1000CC IV BAG INJ 0.9 % (NS 1000CC IV BAG) ml 08/05/2017 08/20/2017 CONTINUOUSEVERY 0 Hour CEFAZOLIN VIAL INJ 1 GM (ANCEF) GM 08/05/2017 08/05/2017 ONCE&1130 Problems Date Dx Coded Attending Type Code Diagnosis Diagnosed By 09/26/2015 LOKI LIMON Ot K29.70 GASTRITIS, UNSPECIFIED, WITHOUT BLEEDING 09/26/2015 ANTONIA OLEARY LOKI Chloe Ot R07.89 OTHER CHEST PAIN 12/26/2015 ANJANA OLIVAREZ Ot Z12.31 01/08/2016 ANJANA OLIVAREZ Ot Z12.31 ENCNTR SCREEN MAMMOGRAM FOR MALIGNANT NE 01/13/2016 CAROLINA LOEARY, ANJANA [place] Ot R92.8 OTH ABN AND INCONCLUSIVE FINDINGS ON DX 01/22/2016 ANJANA OLIVAREZ Ot R92.8 OTH ABN AND INCONCLUSIVE FINDINGS ON DX 12/11/2016 ANJANA OLIVAREZ Ot Z12.31 ENCNTR SCREEN MAMMOGRAM FOR MALIGNANT NE 12/11/2016 ANJANA OLIVAREZ Ot R92.8 OTH ABN AND INCONCLUSIVE FINDINGS ON DX 12/11/2016 BRIAN MOCK MD Ot E11.9 TYPE 2 DIABETES MELLITUS WITHOUT COMPLIC 12/11/2016 BRIAN MOCK MD Ot I10 ESSENTIAL (PRIMARY) HYPERTENSION 12/11/2016 BRIAN MOCK MD Ot R00.2 PALPITATIONS 12/11/2016 BRIAN MOCK MD A Ot R07.9 CHEST PAIN, UNSPECIFIED 12/11/2016 BRIAN MOCK MD A Ot Z79.84 [facility] (CURRENT) USE OF ORAL HYPOGLYC 12/11/2016 BRIAN MOCK MD A Ot Z79.899 OTHER [facility] (CURRENT) DRUG THERAPY 12/11/2016 ANJANA OLIVAREZ Ot Z12.31 ENCNTR SCREEN MAMMOGRAM FOR MALIGNANT NE 12/11/2016 ANJANA OLIVAREZ Ot R92.8 OTH ABN AND INCONCLUSIVE FINDINGS ON DX 12/11/2016 ANJANA OLIVAREZ Ot Z12.31 ENCNTR SCREEN MAMMOGRAM FOR MALIGNANT NE 12/11/2016 ANJANA OLIVAREZ Ot R92.8 OTH ABN AND INCONCLUSIVE FINDINGS ON DX 12/11/2016 BRIAN MOCK MD Ot E11.9 TYPE 2 DIABETES MELLITUS WITHOUT COMPLIC 12/11/2016 BRIAN MOCK MD A Ot I10 ESSENTIAL (PRIMARY) HYPERTENSION 12/11/2016 BRIAN MOCK MD A Ot R00.2 PALPITATIONS 12/11/2016 BRIAN MOCK MD Ot R07.9 CHEST PAIN, UNSPECIFIED 12/11/2016 BRIAN MOCK MD A Ot Z79.84 [facility] (CURRENT) USE OF ORAL HYPOGLYC 12/11/2016 BRIAN MOCK MD A Ot Z79.899 OTHER [facility] (CURRENT) DRUG THERAPY 12/17/2016 BRIAN MOCK MD A Ot E11.9 TYPE 2 DIABETES MELLITUS WITHOUT COMPLIC 12/17/2016 BRIAN MOCK MD A Ot I10 ESSENTIAL (PRIMARY) HYPERTENSION 12/17/2016 BRIAN MOCK MD A Ot R00.2 PALPITATIONS 12/17/2016 BRIAN MOCK MD A Ot R07.9 CHEST PAIN, UNSPECIFIED 12/17/2016 BRIAN MOCK MD A Ot Z79.84 [facility] (CURRENT) USE OF ORAL HYPOGLYC 12/17/2016 BRIAN MOCK MD A Ot Z79.899 OTHER [employer] (CURRENT) DRUG THERAPY 02/19/2017 JEANNINE CLARKE [employer]ARD Ot E11.65 TYPE 2 DIABETES MELLITUS WITH HYPERGLYCE 02/19/2017 JEANNINE CLARKE [employer] Ot I10 ESSENTIAL (PRIMARY) HYPERTENSION 02/19/2017 JEANNINE CLARKE [employer] LIFEGUARD Ot Z79.84 [employer] (CURRENT) USE OF ORAL HYPOGLYC 02/19/2017 JEANNINE CLARKE [employer] Ot Z79.899 OTHER [employer] (CURRENT) DRUG THERAPY 02/25/2017 JEANNINE CLARKE APRN Ot E11.65 TYPE 2 DIABETES MELLITUS WITH HYPERGLYCE 02/25/2017 JEANNINE CLARKE [employer] LIFEGUARD Ot I10 ESSENTIAL (PRIMARY) HYPERTENSION 02/25/2017 JEANNINE CLARKE [employer]CE[employer] LIFEGUARD Ot Z79.84 [employer] (CURRENT) USE OF ORAL HYPOGLYC 02/25/2017 JEANNINE CLARKE [employer]CE[employer]GUARD Ot Z79.899 OTHER [facility] (CURRENT) DRUG THERAPY 02/25/2017 JEANNINE CLARKE [employer]CE[employer]GUARD Ot E11.65 TYPE 2 DIABETES MELLITUS WITH HYPERGLYCE 02/25/2017 JEANNINE CLARKE [employer]CE[employer] LIFEGUARD Ot I10 ESSENTIAL (PRIMARY) HYPERTENSION 02/25/2017 JEANNINE CLARKE [employer]CE[employer] LIFEGUARD Ot Z79.84 [employer] (CURRENT) USE OF ORAL HYPOGLYC 02/25/2017 JEANNINE CLARKE [employer] Ot Z79.899 OTHER [employer] (CURRENT) DRUG THERAPY 03/01/2017 DEBBY LITTEL APRN Ot Z12.31 ENCNTR SCREEN MAMMOGRAM FOR MALIGNANT NE 06/10/2017 TANIKA COFFMAN 354.0 CARPAL TUNNEL SYNDROME 06/10/2017 AUGUSTUS, TANIKA Batista 727.05 OTHER TENOSYNOVITIS OR HAND AND WRIST 06/10/2017 AUGUSTUSTANIKA G56.01 CARPAL TUNNEL SYNDROME, RIGHT UPPER LIMB 06/10/2017 AUGUSTUS, TANIKA Lester M65.9 SYNOVITIS AND TENOSYNOVITIS, UNSPECIFIED 08/05/2017 AUGUSTUSTANIKA 354.0 CARPAL TUNNEL SYNDROME 08/05/2017 AUGUSTUSTANIKA 727.03 TRIGGER FINGER (ACQUIRED) 08/05/2017 AUGUSTUS, TANIKA Batista 727.05 OTHER TENOSYNOVITIS OR HAND AND WRIST 08/05/2017 AUGUSTUSTANIKA G56.02 CARPAL TUNNEL SYNDROME, LEFT UPPER LIMB 08/05/2017 AUGUSTUS, TANIKA Batista M65.332 TRIGGER FINGER, LEFT MIDDLE FINGER 08/05/2017 AUGUSTUS, TANIKA Batista M65.342 TRIGGER FINGER, LEFT RING FINGER 08/05/2017 AUGUSTUSTANIKA M65.9 SYNOVITIS AND TENOSYNOVITIS, UNSPECIFIED 12/23/2017 MADL, RIGOBERTO L DROP WORKER Ot G44.52 NEW DAILY PERSISTENT HEADACHE (NDPH) 12/23/2017 MADL, RIGOBERTO L DROP WORKER Ot R41.3 OTHER AMNESIA 01/06/2018 MADL, RIGOBERTO L DROP WORKER Ot G44.52 NEW DAILY PERSISTENT HEADACHE (NDPH) 01/06/2018 MADL, RIGOBERTO L DROP WORKER Ot R41.3 OTHER AMNESIA Procedures There is no data. Results Test Result Range Complete blood count (CBC) with automated white blood cell (WBC) differential - 12/11/16 09:29 Blood leukocytes automated count (number/volume) 5.1 10*3/uL 4.3-11.0 Blood erythrocytes automated count (number/volume) 4.44 10*6/uL 4.35-5.85 Venous blood hemoglobin measurement (mass/volume) 11.8 [...] Automated blood platelet mean volume measurement 8.9 [foz_us] 7.4-10.4 Automated blood neutrophils/100 leukocytes 62 % [...] Serum or plasma sodium measurement (moles/volume) 134 mmol/L 135-145 Serum or plasma potassium measurement (moles/volume) 4.2 mmol/L 3.6-5.0 Serum or plasma chloride measurement (moles/volume) 101 mmol/L 98-107 Carbon dioxide 21 mmol/L 21-32 Serum or plasma anion gap determination (moles/volume) 12 mmol/L 5-14 Serum or plasma urea nitrogen measurement (mass/volume) 16 mg/dL 7-18 Serum or plasma creatinine measurement (mass/volume) 1.10 mg/dL 0.60-1.30 Serum or plasma urea nitrogen/creatinine mass [...] or plasma troponin i.cardiac measurement (mass/volume) < ng/ mL <0.30 Complete blood count (CBC) with automated white blood cell (WBC) differential - 02/19/17 12:10 Blood leukocytes automated count (number/volume) 9.3 10*3/uL 4.3-11.0 Blood erythrocytes automated count (number/volume) 4.57 10*6/uL 4.35-5.85 Venous blood hemoglobin measurement (mass/volume) 13.0 g/dL 11.5-16.0 Blood hematocrit (volume fraction) 39 % 35-52 Automated erythrocyte mean corpuscular volume 85 [foz_us] 80-99 Automated erythrocyte mean corpuscular hemoglobin (mass per erythrocyte) 28 pg 25-34 Automated erythrocyte mean corpuscular hemoglobin concentration measurement ( mass/volume) 34 g/dL 32-36 Automated erythrocyte distribution width ratio 14.0 % 10.0-14.5 Automated blood platelet count (count/volume) 294 10*3/uL 130-400 Automated blood platelet mean volume measurement 9.3 [foz_us] 7.4-10.4 Automated blood neutrophils/100 leukocytes 81 % 42-75 Automated blood lymphocytes/100 leukocytes 13 % 12-44 Blood monocytes/100 leukocytes 5 % 0-12 Automated blood eosinophils/100 leukocytes 1 % 0-10 Automated blood basophils/100 leukocytes 0 % 0-10 Blood neutrophils automated count (number/volume) 7.5 10*3 1.8-7.8 Blood lymphocytes automated count (number/volume) 1.3 10*3 1.0-4.0 Blood monocytes automated count (number/volume) 0.5 10*3 0.0-1.0 Automated eosinophil count 0.1 10*3/uL 0.0-0.3 Automated blood basophil count (count/volume) 0.0 10*3/uL 0.0-0.1 Comprehensive metabolic panel - 02/19/17 12:10 Serum or plasma sodium measurement (moles/volume) 134 mmol/L 135-145 Serum or plasma potassium measurement (moles/volume) 4.5 mmol/L 3.6-5.0 Serum or plasma chloride measurement (moles/volume) 101 mmol/L 98-107 Carbon dioxide 21 mmol/L 21-32 Serum or plasma anion gap determination (moles/volume) 12 mmol/L 5-14 Serum or plasma urea nitrogen measurement (mass/volume) 14 mg/dL 7-18 Serum or plasma creatinine measurement (mass/volume) 1.18 mg/dL 0.60-1.30 Serum or plasma urea nitrogen/creatinine mass ratio 12 NRG Serum or plasma creatinine measurement with calculation of estimated glomerular filtration rate 49 NRG Serum or plasma glucose measurement (mass/volume) 454 mg/dL 70-105 Serum or plasma calcium measurement (mass/volume) 8.7 mg/dL 8.5-10.1 Serum or plasma total bilirubin measurement (mass/volume) 0.3 mg/dL 0.1-1.0 Serum or plasma alkaline phosphatase measurement (enzymatic activity/volume) 54 U/L 40-136 Serum or plasma aspartate aminotransferase measurement (enzymatic activity/ volume) 15 U/L 5-34 Serum or plasma alanine aminotransferase measurement (enzymatic activity/volume ) 18 U/L 0-55 Serum or plasma protein measurement (mass/volume) 6.8 g/dL 6.4-8.2 Serum or plasma albumin measurement (mass/volume) 3.7 g/dL 3.2-4.5 Capillary blood glucose measurement by glucometer (mass/volume) - 02/19/17 12: 13 Capillary blood glucose measurement by glucometer (mass/volume) 396 mg/dL 70-110 Complete urinalysis with reflex to culture - 02/19/17 13:20 Urine color determination YELLOW NRG Urine clarity determination CLEAR NRG Urine pH measurement by test strip 5 5-9 Specific gravity of urine by test strip 1.010 1.016- 1.022 Urine protein assay by test strip, semi-quantitative NEGATIVE NEGATIVE Urine glucose detection by automated test strip 4+ NEGATIVE Erythrocytes detection in urine sediment by light microscopy NEGATIVE NEGATIVE Urine ketones detection by automated test strip NEGATIVE NEGATIVE Urine nitrite detection by test strip NEGATIVE NEGATIVE Urine total bilirubin detection by test strip NEGATIVE NEGATIVE Urine urobilinogen measurement by automated test strip (mass/volume) NORMAL NORMAL Urine leukocyte esterase detection by dipstick 1+ NEGATIVE Automated urine sediment erythrocyte count by microscopy (number/high power field) NONE NRG Automated urine sediment leukocyte count by microscopy (number/high power field ) [HPF] NRG Bacteria detection in urine sediment by light microscopy TRACE NRG Squamous epithelial cells detection in urine sediment by light microscopy 2-5 NRG Crystals detection in urine sediment by light microscopy NONE NRG Casts detection in urine sediment by light microscopy NONE NRG Mucus detection in urine sediment by light microscopy NEGATIVE NRG Complete urinalysis with reflex to culture NO NRG Capillary blood glucose measurement by glucometer (mass/volume) - 02/19/17 13: 24 Capillary blood glucose measurement by glucometer (mass/volume) 245 mg/dL 70-110 Lipid Panel - 02/26/17 11:08 C/HDL 4.2 3.7-6.7 Cholesterol 201 mg/dL 100-240 HDL 48 mg/dL 30-85 LDL-Calculated 115 mg/dL 0-100 Trig 188 mg/dL 35-160 VLDL 38 mg/dL 0-42 BMP - 03/05/17 10:52 Anion Gap 15 6-14 BUN 12 mg/dL 5-25 Calcium 9.0 mg/dL 8.3-10.4 Chloride 102 mmol/L 95-114 CO2 22 mEq/L 22-33 Creat 0.92 mg/dL 0.50-1.50 eGFR 65 mL/min/1.73m2 >59 Glucose 212 mg/dL 70-110 Osmo 283 280-295 Potassium 4.7 mmol/L 3.5-5.3 Sodium 134 mmol/L 134-148 CBC With Differential/Platelet - 05/07/17 10:26 WBC 6.7 x10E3/uL 3.4-10.8 RBC 5.15 x10E6/uL 3.77-5.28 Hemoglobin 14.5 g/dL 11.1-15.9 Hematocrit 44.9 % 34.0-46.6 MCV 87 fL 79-97 MCH 28.2 pg 26.6-33.0 MCHC 32.3 g/dL 31.5-35.7 RDW 13.2 % 12.3-15.4 Platelets 379 x10E3/uL 150-379 Neutrophils 59 % Lymphs 33 % Monocytes 7 % Eos 1 % Basos 0 % Neutrophils (Absolute) 3.9 x10E3/uL 1.4-7.0 Lymphs (Absolute) 2.2 x10E3/uL 0.7-3.1 Monocytes(Absolute) 0.5 x10E3/uL 0.1-0.9 Eos (Absolute) 0.1 x10E3/uL 0.0-0.4 Baso (Absolute) 0.0 x10E3/uL 0.0-0.2 Immature Granulocytes 0 % Immature Grans (Abs) 0.0 x10E3/uL 0.0-0.1 Comp. Metabolic Panel (14) - 05/07/17 10:26 Glucose, Serum 197 mg/dL 65-99 BUN 10 mg/dL 6-24 Creatinine, Serum 1.00 mg/dL 0.57-1.00 eGFR If NonAfricn Am 67 mL/min/1.73 >59 eGFR If Africn Am 78 mL/min/1.73 >59 BUN/Creatinine Ratio 10 9-23 Sodium, Serum 132 mmol/L 134-144 Potassium, Serum 4.6 mmol/L 3.5-5.2 Chloride, Serum 94 mmol/L 96-106 Carbon Dioxide, Total 19 mmol/L 18-29 Calcium, Serum 9.4 mg/dL 8.7-10.2 Protein, Total, Serum 7.1 g/dL 6.0-8.5 Albumin, Serum 4.2 g/dL 3.5-5.5 Globulin, Total 2.9 g/dL 1.5-4.5 A/G Ratio 1.4 1.2-2.2 Bilirubin, Total 0.6 mg/dL 0.0-1.2 Alkaline Phosphatase, S 53 IU/L 39-117 AST (SGOT) 13 IU/L 0-40 ALT (SGPT) 13 IU/L 0-32 Lipid Panel - 05/07/17 10:26 Cholesterol, Total 195 mg/dL 100-199 Triglycerides 152 mg/dL 0-149 HDL Cholesterol 74 mg/dL >39 VLDL Cholesterol Adelfo 30 mg/dL 5-40 LDL Cholesterol Calc 91 mg/dL 0-99 Urinalysis - 06/03/17 10:51 Icotest N/A Negative Urine Volume Urine Volume Sufficient (10mL) Urine-Appearance Clear Clear Urine-Bacteria 2+ Urine-Bilirubin Negative Negative Urine-Blood Negative Negative Urine-Color Yellow Colorless-Lt. Yellow Urine-Epithelial Cells 0-5/HPF Urine-Glucose Negative Negative Urine-Ketones Negative Negative Urine-Leukocytes Trace Negative Urine-Nitrite Negative Negative Urine-Other Urine Saved if Culture Needed (48hrs from time of collection) Urine-pH 5.0 5-8.5 Urine-Protein Negative Negative Urine-Specific [place] <=1.005 1.000-1.030 Urine-WBC 0-2/HPF Urobilinogen 0.2 E.U./dL 0.2-1.0 MRSA Screen - 06/03/17 10:51 FINAL CULTURE RESULTS MRSA Negative Nasal Culture MEDIA PLATED Setup at 11:16 on 06/03/2017 BMP - 08/02/17 13:35 Anion Gap 15 6-14 BUN 10 mg/dL 5-25 Calcium 9.2 mg/dL 8.3-10.4 Chloride 102 mmol/L 95-114 CO2 19 mEq/L 22-33 Creat 0.97 mg/dL 0.50-1.50 eGFR 61 mL/min/1.73m2 >59 Glucose 125 mg/dL 70-110 Osmo 272 280-295 Potassium 4.9 mmol/L 3.5-5.3 Sodium 131 mmol/L 134-148 Urinalysis - 08/05/17 09:29 Icotest N/A Negative Urine Volume Urine Volume Sufficient (10mL) Urine-Appearance Cloudy Clear Urine-Bacteria 4+ Urine-Bilirubin Negative Negative Urine-Blood Negative Negative Urine-Color Yellow Colorless-Lt. Yellow Urine-Epithelial Cells 0-5/HPF Urine-Glucose Negative Negative Urine-Ketones Negative Negative Urine-Leukocytes 1+ Negative Urine-Nitrite Negative Negative Urine-Other Culture to follow Urine-pH 7.0 5-8.5 Urine-Protein Negative Negative Urine-RBC 0-2/HPF Urine-Specific [place] 1.015 1.000-1.030 Urine-WBC 10-20/HPF Urobilinogen 0.2 E.U./dL 0.2-1.0 Urine Culture - 08/05/17 09:29 PRELIM CULTURE RESULTS >100,000 Gram Negative - LAKE / ID to Follow MEDIA PLATED Setup at 11:32 on 08/05/2017 CULTURE SOURCE void Sensi - 08/05/17 09:29 FINAL CULTURE RESULTS Escherichia coli (Isolate 1) Ampicillin/Sulbactam >16/8 Ampicillin >16 Amoxicillin/K Clavulanate <=8/4 Ceftriaxone <=8 Ciprofloxacin >2 Nitrofurantoin <=32 Gentamicin <=4 Levofloxacin >4 Trimethoprim/ Sulfamethoxazole >2/38 Tetracycline >8 Amikacin <=16 Aztreonam <=8 Ceftazidime <=1 Ceftazidime/K Clavulanate <=0.25 Cephalothin <=8 Cefotaxime <=2 Cefotaxime/K Clavulanate <=0.5 Cefoxitin <=8 Cefazolin <=8 Cefepime <=8 Cefuroxime <=4 Ertapenem <=1 Imipenem <=4 Meropenem <=4 Piperacillin/Tazobactam <=16 Piperacillin >64 Tigecycline <=2 Tobramycin <=4 MRSA Screen - 08/05/17 10:27 FINAL CULTURE RESULTS MRSA Negative Nasal Culture MEDIA PLATED Setup at 10:37 on 08/05/2017 TSH - 08/17/17 12:28 TSH 0.92 mIU/L NRG Encounters ACCT No. Visit Date/Time Discharge Status Pt. Type Provider Facility Loc./Unit Complaint [id number] 12/22/2017 08:05:00 12/22/2017 23:59:59 CLS Outpatient RIGOBERTO MICHELE [facility] RAD MEMORY CHANGES [id number] 02/19/2017 12:06:00 02/19/2017 13:57:00 DIS Emergency JEANNINE CLARKE [employer] [facility] ER ELEVATED BLOOD SUGAR [id number] 02/12/2017 13:13:00 02/12/2017 23:59:59 CLS Outpatient DEBBY LITTLE APRN [facility] RAD SCREENING [id number] 12/11/2016 09:07:00 12/11/2016 10:27:00 DIS Emergency BRAIN MOCK MD [facility] ER CHEST PAIN [id number] 01/10/2016 07:33:00 01/10/2016 23:59:59 CLS Outpatient ANJANA OLIVAREZ [facility] RAD INCREASED DENSITY IN RIGHT BREAST RUQ [id number] 12/25/2015 10:10:00 12/25/2015 23:59:59 CLS Outpatient ANJANA OLIVAREZ [facility] RAD SCREENING [id number] 09/26/2015 11:02:00 09/26/2015 17:09:00 DIS Emergency LOKI LIMON [facility] ER CHEST/BACK PAIN LOW BP DIZZINESS [id number] 12/31/2017 10:54:00 12/31/2017 23:59:00 DIS Outpatient AUGUSTUS TANIKA [id number] 08/05/2017 08:48:00 08/05/2017 13:37:00 DIS Outpatient TANIKA COFFMAN [id number] 08/02/2017 13:04:00 08/02/2017 23:59:00 DIS Outpatient TANIKA COFFMAN [id number] 06/10/2017 00:00:00 06/10/2017 10:58:00 DIS Outpatient TANIKA COFFMAN [id number] 06/03/2017 10:30:00 06/03/2017 23:59:00 DIS Outpatient TANIKA COFFMAN [id number] 04/27/2017 09:34:00 04/27/2017 23:59:00 DIS Outpatient TANIKA COFFMAN [id number] 03/05/2017 09:37:00 03/05/2017 23:59:00 DIS Outpatient Sabi Rosales [id number] 03/02/2017 08:00:00 03/02/2017 23:59:00 DIS Outpatient Sabi Rosales [id number] 02/26/2017 11:05:00 02/26/2017 23:59:00 DIS Outpatient Sabi Rosales [id number] 06/09/2017 10:32:45 Document Registration [id number] 01/05/2018 10:40:00 01/05/2018 23:59:59 CLS Outpatient JOSE YU [facility] [id number] 08/17/2017 11:20:00 Document Registration [id number] 05/08/2017 08:36:00 Document Registration
[2018-01-15 15:15] LABS: BILIRUBIN,URINE NEGATIVE (NEGATIVE); CLARITY,URINE SLIGHTLY CLOUDY; COLOR,URINE YELLOW; GLUCOSE, URINE (UA) 2+ (NEGATIVE); KETONES,URINE NEGATIVE (NEGATIVE); LEUKOCYTE ESTERASE ,URINE 3+ (NEGATIVE); NITRITE,URINE POSITIVE (NEGATIVE); PH,URINE 5 (5-9); PROTEIN,URINE NEGATIVE (NEGATIVE); UROBILINOGEN,URINE NORMAL (NORMAL)
[2018-01-15] MEDS ORDERED: ONDA4TAB10 (15:16)
[2018-01-15] MEDS ORDERED: TOPI25TA10 (15:16)
[2018-01-15] MEDS ORDERED: HYDR50TA76 (15:16)
[2018-01-15] MEDS ORDERED: CYCL10TA9 (15:16)
[2018-01-15] MEDS ORDERED: SITA100T12 (15:16)
[2018-01-15 15:26] LABS: BASOPHILS % (AUTO) 0 % (0-10); EOSINOPHILS # (AUTO) 0.1 10^3/uL (0.0-0.3); EOSINOPHILS % (AUTO) 1 % (0-10); HEMATOCRIT 34 % (35-52); HEMOGLOBIN 11.7 G/DL (11.5-16.0); LYMPHOCYTES # (AUTO) 1.9 X 10^3 (1.0-4.0); LYMPHOCYTES % (AUTO) 25 % (12-44); MEAN CORPUSCULAR HGB CONC 35 G/DL (32-36); MEAN CORPUSCULAR VOLUME 82 FL (80-99); MEAN PLATELET VOLUME 8.7 FL (7.4-10.4); MONOCYTES # (AUTO) 0.6 X 10^3 (0.0-1.0); MONOCYTES % (AUTO) 8 % (0-12); NEUTROPHILS % (AUTO) 66 % (42-75); PLATELET COUNT 293 10^3/uL (130-400); RED BLOOD COUNT 4.11 10^6/uL (4.35-5.85); RED CELL DISTRIBUTION WIDTH 13.7 % (10.0-14.5); WHITE BLOOD COUNT 7.5 10^3/uL (4.3-11.0)
[2018-01-15 15:27] LABS: MEAN CORPUSCULAR HEMOGLOBIN 28 PG (25-34)
--- NOTE | 2018-01-15 15:28 | ED Abdominal Pain ---
General Chief Complaint: Abdominal/GI Problems Stated Complaint: L SIDE STOMACH PAIN RADIATING AROUND BACK Nursing Triage Note: pt presents to er with complaint of epigasttric pain that radiates to the left side. pt states she takes one bite of food and has instant pain. states there is a knot in her stomach Sepsis Screen: No Definite Risk Source of Information: Patient Exam Limitations: No Limitations History of Present Illness Date Seen by Provider: Jan 15, 2018 Time Seen by Provider: 15:27 Initial Comments 47 yo female patient presents to the ED with c/o epigastric pain that radiates around the left side. She reports instant pain when the food hits her stomach after taking a bite. Timing/Duration: 3-4 Days, Getting Worse Severity/Quality: Burning Location: Epigastric Radiation: LUQ Modifying Factors: Worsens With Eating, Worsens With Palpation Allergies and Home Medications Allergies Coded Allergies: NSAIDS (Non-Steroidal Anti-Inflamma (Verified Adverse Reaction, Unknown, ) UNABLE TO TAKE DUE TO GASTRIC SURG Home Medications Nitrofurantoin Macrocrystal 100 Mg Capsule, 100 MG PO BID Prescribed by: LOKI KNIGHT on 01/15/181852 Omeprazole 40 Mg Capsule.dr, 40 MG PO DAILY Prescribed by: LOKI KNIGHT on 01/15/181852 Omeprazole 40 Mg Capsule.dr, 40 MG PO BID Prescribed by: LOKI KNIGHT on 01/15/181905 Ondansetron 8 Mg Tab.rapdis, 8 MG PO Q6H PRN for NAUSEA/VOMITING-1ST LINE Prescribed by: LOKI KNIGHT on 01/15/181852 Patient Home Medication List Home Medication List Reviewed: Yes Review of Systems Constitutional: No chills, No fever, No malaise EENTM: No Symptoms Reported Respiratory: No Symptoms Reported Cardiovascular: No Symptoms Reported Gastrointestinal: See HPI; Denies Abdomen Distended; Abdominal Pain; Denies Blood Streaked Stools, Denies Constipated, Denies Diarrhea; Nausea, Poor Appetite, Poor Fluid Intake; Denies Rectal Bleeding; Vomiting Genitourinary: No Symptoms Reported Musculoskeletal: no symptoms reported Skin: no symptoms reported Psychiatric/Neurological: No Symptoms Reported All Other Systems Reviewed Negative Unless Noted: Yes (Negative excepted noted.) Past [id number] Hx Patient Social History Alcohol Use: Denies Use Recreational Drug Use: No Smoking Status: Never a Smoker Recent Foreign Travel: No Contact w/Someone Who Travel: No Recent Infectious Disease Expo: No Recent Hopitalizations: No Immunizations Up To Date PED Vaccines UTD: Yes Seasonal Allergies Seasonal Allergies: No Past Medical History Surgeries: Yes (D&C x5 [id number]) Abdominal, Appendectomy, Gallbladder, Hysterectomy Respiratory: No Cardiac: Yes Hypertension Neurological: Yes Headaches /Migraines [employer] History: Hysterectomy Gastrointestinal: No Musculoskeletal: Yes Endocrine: Yes Diabetes, Non-Insulin dep Cancer: No Psychosocial: Yes Anxiety, Depression Family Medical History Reviewed Nursing Family Hx No Pertinent Family Hx Physical Exam Vital Signs Vital Signs - First Documented 01/15/18 15:09 Temp 97.6 Pulse 108 Resp 20 B/P (MAP) 156/73 (100) Pulse Ox 100 O2 Delivery Room Air Capillary Refill : Less Than 3 Seconds General Appearance: WD/WN, no apparent distress HEENT: PERRL/EOMI, pharynx normal Neck: supple, normal inspection Respiratory: lungs clear, normal breath sounds, no respiratory distress, no accessory muscle use Cardiovascular: normal peripheral pulses, regular rate, rhythm, no edema, no murmur Peripheral Pulses: 2+ Dorsalis Pedis (R), 2+ Left Dors-Pedis (L), 2+ Radial Pulses (R), 2+ Radial Pulses (L) Gastrointestinal: normal bowel sounds, soft, no organomegaly; No distended; guarding (epigastric); No rebound; tenderness (epigastric, LUQ, and LLQ) Extremities: no pedal edema, normal capillary refill Back: normal inspection, no CVA tenderness Neurologic/Psychiatric: alert, normal mood/affect, oriented x 3 Skin: normal color, warm/dry Progress/Results/Core Measures Lab Results Laboratory Tests Test 01/15/18 15:05 01/15/18 15:20 Range/Units Urine Color YELLOW Urine Clarity SLIGHTLY CLOUDY Urine pH 5 5-9 Urine Specific Belle 1.010 L 1.016-1.022 Urine Protein NEGATIVE NEGATIVE Urine Glucose (UA) 2+ H NEGATIVE Urine Ketones NEGATIVE NEGATIVE Urine Nitrite POSITIVE H NEGATIVE Urine Bilirubin NEGATIVE NEGATIVE Urine Urobilinogen NORMAL NORMAL MG/DL Urine Leukocyte Esterase 3+ H NEGATIVE Urine RBC (Auto) 1+ H NEGATIVE Urine RBC NONE /HPF Urine WBC 50-100 H /HPF Urine Crystals NONE /LPF Urine Bacteria LARGE H /HPF Urine Casts NONE /LPF Urine Mucus NEGATIVE /LPF Urine Culture Indicated YES White Blood Count 7.5 4.3-11.0 10^3/uL Red Blood Count 4.11 L 4.35-5.85 10^6/uL Hemoglobin 11.7 11.5-16.0 G/DL Hematocrit 34 L 35-52 % Mean Corpuscular Volume 82 80-99 FL Mean Corpuscular Hemoglobin 28 25-34 PG Mean Corpuscular Hemoglobin Concent 35 32-36 G/DL Red Cell Distribution Width 13.7 10.0-14.5 % Platelet Count 293 130-400 10^3/uL Mean Platelet Volume 8.7 7.4-10.4 FL Neutrophils (%) (Auto) 66 42-75 % Lymphocytes (%) (Auto) 25 12-44 % Monocytes (%) (Auto) 8 0-12 % Eosinophils (%) (Auto) 1 0-10 % Basophils (%) (Auto) 0 0-10 % Neutrophils # (Auto) 5.0 1.8-7.8 X 10^3 Lymphocytes # (Auto) 1.9 1.0-4.0 X 10^3 Monocytes # (Auto) 0.6 0.0-1.0 X 10^3 Eosinophils # (Auto) 0.1 0.0-0.3 10^3/uL Basophils # (Auto) 0.0 0.0-0.1 10^3/uL Sodium Level 130 L 135-145 MMOL/L Potassium Level 4.4 3.6-5.0 MMOL/L Chloride Level 100 98-107 MMOL/L Carbon Dioxide Level 18 L 21-32 MMOL/L Anion Gap 12 5-14 MMOL/L Blood Urea Nitrogen 10 7-18 MG/DL Creatinine 1.00 0.60-1.30 MG/DL Estimat Glomerular Filtration Rate 59 BUN/Creatinine Ratio 10 Glucose Level 147 H 70-105 MG/DL Calcium Level 9.5 8.5-10.1 MG/DL Total Bilirubin 0.6 0.1-1.0 MG/DL Aspartate Amino Transf (AST/SGOT) 14 5-34 U/L Alanine Aminotransferase (ALT/SGPT) 13 0-55 U/L Alkaline Phosphatase 58 40-136 U/L C-Reactive Protein High Sensitivity 1.37 H 0.00-0.50 MG/DL Total Protein 7.2 6.4-8.2 GM/DL Albumin 4.0 3.2-4.5 GM/DL Lipase 15 8-78 U/L My Orders Orders - LOKI KNIGHT Cbc With Automated Diff (01/15/18 15:08) Comprehensive Metabolic Panel (01/15/18 15:08) Hs C Reactive Protein (01/15/18 15:08) Lipase (01/15/18 15:08) Ua Culture If Indicated (01/15/18 15:08) Saline Lock/Iv-Start (01/15/18 15:08) Urine Bedside (01/15/18 15:08) Urine Culture (01/15/18 15:05) Ct Abdomen/Pelvis W (01/15/18 15:40) Ondansetron Injection (Zofran Injectio (01/15/18 15:45) Fentanyl Injection (Sublimaze Injection (01/15/18 15:40) Saline Lock/Iv-Start (01/15/18 15:40) Iohexol Injection (Omnipaque 350 Mg/Ml 1 (01/15/18 16:00) Sodium Chloride Flush (Catheter Flush Sy (01/15/18 16:00) Ns (Ivpb) (Sodium Chloride 0.9%) (01/15/18 16:00) Pharmacy Communication (Pharmacy Communi (01/15/18 15:49) Morphine Injection (Morphine Injection (01/15/18 17:15) Ns Iv 1000 Ml (Sodium Chloride 0.9%) (01/15/18 17:15) Pantoprazole Injection (Protonix Injecti (01/15/18 17:15) Ceftriaxone Injection (Rocephin Injectio (01/15/18 17:30) Us Non Ob Pelvis Comp/Transvag (01/15/18 17:07) Rx-Ondansetron Po (Rx-Zofran Po) (01/15/18 19:07) Morphine Injection (Morphine Injection (01/15/18 19:07) Ranitidine Injection (Zantac Injection) (01/15/18 19:15) Medications Given in ED Current Medications Medications Dose Ordered Sig/Lidya Route Start Time Stop Time Status Last Admin Dose Admin Ceftriaxone Sodium 1000 mg/ Sodium Chloride 100 ml @ 200 mls/hr ONCE ONCE IV 01/15/18 17:30 01/15/18 17:59 DC 01/15/18 18:10 200 MLS/HR Iohexol 100 ml ONCE ONCE IV 01/15/18 16:00 01/15/18 16:01 DC 01/15/18 16:18 100 ML Ondansetron HCl 4 mg ONCE ONCE IVP 01/15/18 15:45 01/15/18 15:46 DC 01/15/18 15:44 4 MG Pantoprazole 80 mg ONCE ONCE IV 01/15/18 17:15 01/15/18 17:22 DC 01/15/18 17:35 80 MG Ranitidine HCl 50 mg ONCE ONCE IV 01/15/18 19:15 01/15/18 19:16 DC 01/15/18 19:23 50 MG Sodium Chloride 10 ml NEEDED PRN IV 01/15/18 16:00 01/15/18 16:18 10 ML Sodium Chloride 250 ml ONCE ONCE IV 01/15/18 16:00 01/15/18 16:01 DC 01/15/18 16:18 80 ML Sodium Chloride 1,000 ml @ 0 mls/hr Q0M ONCE IV 01/15/18 17:15 01/15/18 17:22 DC 01/15/18 17:35 1,000 MLS/HR Vital Signs/I&O 01/15/18 15:09 Temp 97.6 Pulse 108 Resp 20 B/P (MAP) 156/73 (100) Pulse Ox 100 O2 Delivery Room Air Blood Pressure Mean: 100 Urine -Bedside: Negative Diagonstic Imaging: CT Plain Films/CT/US/NM/MRI: abdomen, pelvis Comments CT ABDOMEN/PELVIS W PROCEDURE: CT abdomen and pelvis with contrast. TECHNIQUE: Multiple contiguous axial images were obtained through the abdomen and pelvis after administration of intravenous contrast. INDICATION: Generalized abdominal pain. COMPARISON: None. FINDINGS: The gallbladder is surgically absent. Postoperative changes are seen involving the stomach. The lung bases are clear. The solid organs and vascular structures are grossly unremarkable. The course and caliber of the small bowel is normal. There is some moderate constipation in the distal colon. Nonspecific gas-filled loops of colon are seen in the upper abdomen, likely ileus. There is no obstructive process. Distal ureters and urinary bladder are normal. The uterus is surgically absent. There is a nodular cystic mass in the left lower quadrant, measuring approximately 6 cm. This could represent an ovary with normal physiologic follicle. Please correlate with prior oophorectomy. Foregut duplication cyst is also a differential possibility. Ultrasound correlation is recommended to exclude neoplasm. There is no ascites or lymphadenopathy. Osseous structures are normal. IMPRESSION: 1. Distal colonic constipation with slight colonic ileus. 2. Cystic mass with nodularity in the left adnexa, possibly normal ovary. Although, foregut duplication cyst is not excluded. Ultrasound is recommended to exclude underlying ovarian neoplasm. Dictated by: Dictated on workstation # [id number] Reviewed: Reviewed by Me (radiology report reviewed by me) Diagonstic Imaging: Ultrasound Plain Films/CT/US/NM/MRI: pelvis Comments US NON OB PELVIS COMP/TRANSVAG INDICATION: Abdominal pain. EXAMINATION: Pelvic ultrasound. FINDINGS: The uterus is surgically absent. Left ovary measures up to 8.1 x 5.5 x 5.7 cm. There is a complex cyst in the left ovary that measures 7.4 x 4.7 x 4.6 cm. There is an additional hemorrhagic cyst in the left ovary, measuring 3.5 cm. There is a complex cystic mass in the right adnexa, measuring 3.9 x 4.4 x 2.7 cm. IMPRESSION: Bilateral complex ovarian cysts, likely hemorrhagic. Recommend clinical correlation with short interval followup sonogram to ensure stability and/or resolution. Dictated by: Dictated on workstation # [id number] Reviewed: Reviewed by Me (radiology report reviewed by me) Departure Communication (Admissions) All laboratory findings and diagnostic findings discussed with the patient. Plan for Pelvic U/S discussed with the patient. Patient verbalizes understanding and wishes to proceed. States she was scheduled for an outpatient pelvic ultrasound on Wednesday to rule out ovarian cysts. 1844 pelvic ultrasound findings discussed with the patient. Patient states morphine did help, but pain is returning. We'll give another dose of 6 mg morphine IV and Zantac 50 mg IV prior to discharge. Patient states she does have narcotic pain medication at home. I've instructed patient to stop the diclofenac due to risk of gastritis and ulcers. Patient verbalizes understanding and agrees with the treatment plan. Impression Primary Impression: Gastritis Qualified Codes: K29.00 - Acute gastritis without bleeding Additional Impressions: Complex cyst of left ovary Complex cyst of right ovary Urinary tract infection Qualified Codes: N30.00 - Acute cystitis without hematuria Disposition: HOME, SELF-CARE Condition: Improved Departure-Patient Inst. Decision time for Depature: 18:49 Ref[place]: [facility] [place] Primary Care Physician RAQUEL BOOTHE MD Patient Instructions: Gas and Bloating, Gastritis (DC), Ovarian Cyst (DC) Add. Discharge Instructions: All discharge instructions reviewed with patient and/or family. Voiced understanding. Medications as instructed. Continue usual home medications. Avoid spicy foods, fatty foods, carbonated beverages, caffeinated beverages. Do not eat within 2 hours of lying down. Push fluids. Follow-up with the general surgeon of your choice for possible need of upper and lower endoscopy. Follow-up with her family practitioner this week for recheck. Call Wednesday for appointment time. Return to the emergency department for worsened symptoms or any other concerns. Scripts Omeprazole (Omeprazole) 40 Mg Capsule.dr 40 MG PO BID, #60 CAP 0 Refills Prov: LOKI KNIGHT 01/15/18 Nitrofurantoin Macrocrystal (Nitrofurantoin) 100 Mg Capsule 100 MG PO BID, #14 CAP 0 Refills Prov: LOKI KNIGHT 01/15/18 Ondansetron (Ondansetron Odt) 8 Mg Tab.rapdis 8 MG PO Q6H PRN for NAUSEA/VOMITING-1ST LINE, #10 TAB 0 Refills Prov: LOKI KNIGHT 01/15/18 Omeprazole (Omeprazole) 40 Mg Capsule.dr 40 MG PO DAILY, #30 CAP 0 Refills Prov: LOKI KNIGHT 01/15/18 Work/School Note: Local Medical Staff Listing Copy Copies To 1: KEE SALAZAR MD, GRETCHEN L PA Jan 15, 2018 15:28
[2018-01-15 15:29] LABS: BACTERIA,URINE LARGE /HPF; WBC,URINE 50-100 /HPF
[2018-01-15] MEDS ORDERED: fentaNYL INJECTION 100 MCG/2 ML AMP IVP STA (15:40)
[2018-01-15] MEDS ORDERED: ONDANSETRON 4 MG/2 ML (SDV) Z0FRAN IVP ONE (15:45)
[2018-01-15 15:48] LABS: BILIRUBIN,TOTAL 0.6 MG/DL (0.1-1.0); CALCIUM 9.5 MG/DL (8.5-10.1); POTASSIUM 4.4 MMOL/L (3.6-5.0); TOTAL PROTEIN 7.2 GM/DL (6.4-8.2)
[2018-01-15] MEDS ORDERED: CATHETER FLUSH 10 ML SYR IV PRN (16:00)
[2018-01-15] MEDS ORDERED: IOHEXOL 350 MG/ML 100 ML (OMNIPAQUE 350) VIAL IV ONE (16:00)
[2018-01-15] MEDS ORDERED: NS 250 ML (IVPB) BAG IV ONE (16:00)
--- NOTE | 2018-01-15 16:56 | Diagnostic Imaging Report ---
PROCEDURE: CT abdomen and pelvis with contrast. TECHNIQUE: Multiple contiguous axial images were obtained through the abdomen and pelvis after administration of intravenous contrast. INDICATION: Generalized abdominal pain. COMPARISON: None. FINDINGS: The gallbladder is surgically absent. Postoperative changes are seen involving the stomach. The lung bases are clear. The solid organs and vascular structures are grossly unremarkable. The course and caliber of the small bowel is normal. There is some moderate constipation in the distal colon. Nonspecific gas-filled loops of colon are seen in the upper abdomen, likely ileus. There is no obstructive process. Distal ureters and urinary bladder are normal. The uterus is surgically absent. There is a nodular cystic mass in the left lower quadrant, measuring approximately 6 cm. This could represent an ovary with normal physiologic follicle. Please correlate with prior oophorectomy. Foregut duplication cyst is also a differential possibility. Ultrasound correlation is recommended to exclude neoplasm. There is no ascites or lymphadenopathy. Osseous structures are normal. IMPRESSION: 1. Distal colonic constipation with slight colonic ileus. 2. Cystic mass with nodularity in the left adnexa, possibly normal ovary. Although, foregut duplication cyst is not excluded. Ultrasound is recommended to exclude underlying ovarian neoplasm. Dictated by: Dictated on workstation # [id number]
[2018-01-15] MEDS ORDERED: morphine INJ 10 MG/ML 1ML (SYR OR VIAL) IVP STA ×2 (17:15→19:07)
[2018-01-15] MEDS ORDERED: PANTOPRAZOLE 40 MG/10 ML (PROTONIX) VIAL IV ONE (17:15)
[2018-01-15] MEDS ORDERED: NS IV 1000 ML 1,000 ML IV ONE (17:15)
[2018-01-15] MEDS ORDERED: cefTRIAXone INJECTION 1,000 MG in NS (IVPB) 100 ML IV ONE (17:30)
--- NOTE | 2018-01-15 18:28 | Diagnostic Imaging Report ---
INDICATION: Abdominal pain. EXAMINATION: Pelvic ultrasound. FINDINGS: The uterus is surgically absent. Left ovary measures up to 8.1 x 5.5 x 5.7 cm. There is a complex cyst in the left ovary that measures 7.4 x 4.7 x 4.6 cm. There is an additional hemorrhagic cyst in the left ovary, measuring 3.5 cm. There is a complex cystic mass in the right adnexa, measuring 3.9 x 4.4 x 2.7 cm. IMPRESSION: Bilateral complex ovarian cysts, likely hemorrhagic. Recommend clinical correlation with short interval followup sonogram to ensure stability and/or resolution. Dictated by: Dictated on workstation # [id number]
[2018-01-15] MEDS ORDERED: NITR100C PO (18:53)
[2018-01-15] MEDS ORDERED: OMEP40CA36 PO ×2 (18:53→19:06)
[2018-01-15] MEDS ORDERED: ONDA8TAB13 PO (18:53)
[2018-01-15] MEDS ORDERED: RX-ONDANSETRON 4 MG ODT (ZOFRAN) PPK #4 PO STA (19:07)
[2018-01-15] MEDS ORDERED: raNItidine 50 MG/2 ML INJ (ZANTAC) IV ONE (19:15)
[2018-01-15 20:00] VITALS: BP 156/73
== END 2018-01-15 20:00 | disposition home or self-care (01) ==
LOC: EDUNIT# 14:58 → ER 15:00
DX: K29.00 Acute gastritis without bleeding (principal); N83.291 Other ovarian cyst, right side; N83.292 Other ovarian cyst, left side; N39.0 Urinary tract infection, site not specified; G43.909 Migraine, unspecified, not intractable, without status migrainosus; F41.9 Anxiety disorder, unspecified; F32.9 Major depressive disorder, single episode, unspecified; E11.9 Type 2 diabetes mellitus without complications; Z90.49 Acquired absence of other specified parts of digestive tract; Z90.710 Acquired absence of both cervix and uterus; Z88.6 Allergy status to analgesic agent
CPT/HCPCS: 36415; 74177; 76830; 76856; 80053; 81000; 83690; 84703; 85025; 86141; 87077; 87088; 87186; 96361; 96365; 96375; 96376

== ENCOUNTER 2018-05-20 17:07 | Emergency (ER) | payer SELFPAY ==
[~2018-05-20] VITALS: Ht 165.1 cm; Wt 95.3 kg
[~2018-05-20 17:07] MED LIST changes: +HYDR50TA76; +METF-399; -METF10002; +NITR100C PO; +ONDA4TAB10; +ONDA8TAB13 PO; -OXYC-197 PO; +OXYC1TAB87 PO; +SITA100T12; +TOPI25TA10
--- NOTE | 2018-05-20 17:44 | ED General ---
General Stated Complaint: RECTAL BLEEDING Source of Information: Patient Exam Limitations: No Limitations History of Present Illness Date Seen by Provider: May 20, 2018 Time Seen by Provider: 17:22 Initial Comments This 48-year-old woman presents to the emergency room from the [facility] clinic where she was being seen for dizziness, weakness, and explosive diarrhea. The dizziness and weakness has been ongoing for about 2 weeks. She has experienced explosive diarrhea for 2 or 3 days. She recently finished antibiotics and Diflucan for a urinary tract infection. She was at the clinic for a follow-up today. A fingerstick hemoglobin was performed and she was found to have a 2 g drop in her hemoglobin since March. She was directed to the emergency room. Patient reports her blood pressure was "low for me" at the clinic. She has some mild pain from the mid back radiating around to the bilateral flanks. Patient denies any notable hematochezia or melena but states a Hemoccult study performed at [facility] was positive. Allergies and Home Medications Allergies Coded Allergies: NSAIDS (Non-Steroidal Anti-Inflamma (Verified Adverse Reaction, Unknown, ) UNABLE TO TAKE DUE TO GASTRIC SURG Home Medications Cefdinir 300 Mg Capsule, 300 MG PO BID Prescribed by: SONAL BLOCK on 05/20/181903 Fluconazole 150 Mg Tablet, 150 MG PO UD Take one tablet on May 23 and May 26 Prescribed by: SONAL BLOCK on 05/20/181903 Lactobacillus Combo No.10 1 Each Capsule, 1 EACH PO TIDWM Prescribed by: SONAL BLOCK on 05/20/181904 Metronidazole 500 Mg Tablet, 500 MG PO TID Prescribed by: SONAL BLOCK on 05/20/181904 Nitrofurantoin Macrocrystal 100 Mg Capsule, 100 MG PO BID Prescribed by: LOKI KNIGHT on 01/15/181852 Omeprazole 40 Mg Capsule.dr, 40 MG PO DAILY Prescribed by: LOKI KNIGHT on 01/15/181852 Omeprazole 40 Mg Capsule.dr, 40 MG PO BID Prescribed by: LOKI KNIGHT on 01/15/181905 Ondansetron 8 Mg Tab.rapdis, 8 MG PO Q6H PRN for NAUSEA/VOMITING-1ST LINE Prescribed by: LOKI KNIGHT on 01/15/181852 Patient Home Medication List Home Medication List Reviewed: Yes Review of Systems Review of Systems Constitutional: see HPI EENTM: no symptoms reported Respiratory: no symptoms reported Cardiovascular: see HPI Gastrointestinal: see HPI Genitourinary: see HPI : No Musculoskeletal: no symptoms reported Skin: no symptoms reported Psychiatric/Neurological: See HPI Hematologic/Lymphatic: No Symptoms Reported Immunological/Allergic: no symptoms reported All Other Systems Reviewed Negative Unless Noted: Yes Past Htliiwd-Ljxepg-Qkasgn Hx Patient Social History Recent Hopitalizations: No Immunizations Up To Date PED Vaccines UTD: Yes Seasonal Allergies Seasonal Allergies: No Past Medical History Surgeries: Yes (D&C x5 HGYSWIC-AR-ADJS, EGD and colonoscopy) Abdominal, Appendectomy (ruptured), Gallbladder, Hysterectomy, Oophorectomy Respiratory: No Cardiac: Yes Hypertension Neurological: Yes Headaches /Migraines : No Reproductive Disorders: No 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 oz. 102.626909dw; 43.26 BMI Method:Stated General Appearance: No Apparent Distress, WD/WN HEENT: PERRL/EOMI, Normal ENT Inspection Neck: Normal Inspection Respiratory: Lungs Clear, Normal Breath Sounds, No Accessory Muscle Use, No Respiratory Distress Cardiovascular: No Edema, No Murmur, Tachycardia Gastrointestinal: Normal Bowel Sounds, Non Tender, Soft Extremity: Normal Inspection Neurologic/Psychiatric: Alert, Oriented x3, No Motor/Sensory Deficits, Normal Mood/Affect, rock splitter II-XII Norm as Tested Skin: Normal Color, Warm/Dry Progress/Results/Core Measures Suspected Sepsis SIRS Temperature: Pulse: Respiratory Rate: Laboratory Tests 05/20/18 17:47: White Blood Count 7.6 Blood Pressure / Mean: Laboratory Tests 05/20/18 17:47: Creatinine 1.10, INR Comment 0.9, Platelet Count 376, Total Bilirubin 0.3 Results/Orders Lab Results Laboratory Tests Test 05/20/18 17:47 Range/Units White Blood Count 7.6 4.3-11.0 10^3/uL Red Blood Count 3.97 L 4.35-5.85 10^6/uL Hemoglobin 11.2 L 11.5-16.0 G/DL Hematocrit 33 L 35-52 % Mean Corpuscular Volume 83 80-99 FL Mean Corpuscular Hemoglobin 28 25-34 PG Mean Corpuscular Hemoglobin Concent 34 32-36 G/DL Red Cell Distribution Width 14.1 10.0-14.5 % Platelet Count 376 130-400 10^3/uL Mean Platelet Volume 9.5 7.4-10.4 FL Neutrophils (%) (Auto) 58 42-75 % Lymphocytes (%) (Auto) 34 12-44 % Monocytes (%) (Auto) 6 0-12 % Eosinophils (%) (Auto) 2 0-10 % Basophils (%) (Auto) 0 0-10 % Neutrophils # (Auto) 4.4 1.8-7.8 X 10^3 Lymphocytes # (Auto) 2.5 1.0-4.0 X 10^3 Monocytes # (Auto) 0.5 0.0-1.0 X 10^3 Eosinophils # (Auto) 0.1 0.0-0.3 10^3/uL Basophils # (Auto) 0.0 0.0-0.1 10^3/uL Prothrombin Time 12.3 12.2-14.7 SEC INR Comment 0.9 0.8-1.4 Urine Color YELLOW Urine Clarity SLIGHTLY CLOUDY Urine pH 5 5-9 Urine Specific [place] 1.010 L 1.016-1.022 Urine Protein NEGATIVE NEGATIVE Urine Glucose (UA) 3+ H NEGATIVE Urine Ketones NEGATIVE NEGATIVE Urine Nitrite NEGATIVE NEGATIVE Urine Bilirubin NEGATIVE NEGATIVE Urine Urobilinogen NORMAL NORMAL MG/DL Urine Leukocyte Esterase 3+ H NEGATIVE Urine RBC (Auto) 1+ H NEGATIVE Urine RBC 0-2 /HPF Urine WBC 25-50 H /HPF Urine Crystals NONE /LPF Urine Bacteria LARGE H /HPF Urine Casts NONE /LPF Urine Mucus NEGATIVE /LPF Urine Culture Indicated YES Sodium Level 128 L 135-145 MMOL/L Potassium Level 3.9 3.6-5.0 MMOL/L Chloride Level 100 98-107 MMOL/L Carbon Dioxide Level 19 L 21-32 MMOL/L Anion Gap 9 5-14 MMOL/L Blood Urea Nitrogen 13 7-18 MG/DL Creatinine 1.10 0.60-1.30 MG/DL Estimat Glomerular Filtration Rate 53 BUN/Creatinine Ratio 12 Glucose Level 247 H 70-105 MG/DL Calcium Level 9.1 8.5-10.1 MG/DL Corrected Calcium 9.3 8.5-10.1 MG/DL Total Bilirubin 0.3 0.1-1.0 MG/DL Aspartate Amino Transf (AST/SGOT) 12 5-34 U/L Alanine Aminotransferase (ALT/SGPT) 15 0-55 U/L Alkaline Phosphatase 69 40-136 U/L Total Protein 6.9 6.4-8.2 GM/DL Albumin 3.8 3.2-4.5 GM/DL My Orders Orders - SONAL LALA MD Stool Culture (05/20/18 17:32) Fecal Wbc (05/20/18 17:32) C Difficile Ag + Toxin A/B. (05/20/18 17:32) Fecal Occult Bedside (05/20/18 17:32) Ceftriaxone For Iv Use (Rocephin For I (05/20/18 18:30) Saline Lock/Iv-Start (05/20/18 18:26) Ns Iv 1000 Ml (Sodium Chloride 0.9%) (05/20/18 18:26) Fluconazole Tablet (Ed Only) (Diflucan T (05/20/18 18:45) Metronidazole Tablet (Flagyl Tablet) (05/20/18 18:45) Medications Given in ED Current Medications Medications Dose Ordered Sig/Lidya Route Start Time Stop Time Status Last Admin Dose Admin Ceftriaxone Sodium 1000 mg/ Sodium Chloride 50 ml @ 100 mls/hr ONCE ONCE IV 05/20/18 18:30 05/20/18 18:59 DC 05/20/18 18:48 100 MLS/HR Fluconazole 150 mg ONCE ONCE PO 05/20/18 18:45 05/20/18 18:46 DC 05/20/18 18:51 150 MG Metronidazole 500 mg ONCE ONCE PO 05/20/18 18:45 05/20/18 18:46 DC 05/20/18 18:51 500 MG Sodium Chloride 1,000 ml @ 0 mls/hr Q0M ONCE IV 05/20/18 18:26 05/20/18 18:28 DC 05/20/18 18:48 1,000 MLS/HR Vital Signs/I&O 05/20/18 17:22 Temp 96.7 Pulse 110 Resp 15 B/P (MAP) 129/94 (106) Pulse Ox 100 O2 Delivery Room Air Capillary Refill : Progress Note : Progress Note Patient was found to have a significant urinary tract infection. Culture results from [facility] were reviewed. Rocephin appears appropriate based on those culture results. We will prescribe Omnicef for further outpatient treatment. Patient will be further evaluated for hematochezia and diarrhea with stool studies. A prescription for outpatient stool studies was provided along with a collection kit. She was given her first dose of Flagyl and Diflucan in the ER. A liter of IV normal saline was administered along with Rocephin. Patient was advised to have a colonoscopy in the outpatient setting. Hemoccult study and digital rectal exam were not performed as they were reportedly done already in the clinic. Departure Impression Primary Impression: Urinary tract infection Qualified Codes: N39.0 - Urinary tract infection, site not specified Additional Impressions: Heme positive stool Hyponatremia Diarrhea Qualified Codes: R19.7 - Diarrhea, unspecified Disposition: 01 HOME, SELF-CARE Condition: Improved Departure-Patient Inst. Decision time for Depature: 18:30 Referrals: [facility] (PCP/Family) Primary Care Physician Patient Instructions: Gastrointestinal Bleeding, Urinary Tract Infection, Adult (DC) Add. Discharge Instructions: Drink plenty of clear liquids. Complete your antibiotics as prescribed unless otherwise directed. Monitor your blood sugars and discuss results with your primary care provider. Follow-up with your primary care provider next week. Follow-up on your urine culture results. They should be resulted out after 48 hours (by Wednesday). Call the clinic or the ER to obtain results. Return to the ER if symptoms are worsening or if you develop new symptoms such as fever, frankly bloody stools, pain, etc. Please discuss colonoscopy with your primary care provider to evaluate for causes of rectal bleeding. Obtain a stool specimen and bring it to the hospital for lab processing. Scripts Lactobacillus Combo No.10 (Probiotic) 1 Each Capsule 1 EACH PO TIDWM, #30 CAP Prov: SONAL LALA MD 05/20/18 Metronidazole (Flagyl) 500 Mg Tablet 500 MG PO TID, #20 TAB Prov: SONAL LALA MD 05/20/18 Cefdinir (Cefdinir) 300 Mg Capsule 300 MG PO BID, #14 CAP Prov: SONAL LALA MD 05/20/18 Fluconazole (Diflucan) 150 Mg Tablet 150 MG PO UD, #2 TAB Take one tablet on May 23 and May 26 Prov: SONAL LALA MD 05/20/18 Copy Copies To 1: CHRIS STARR JOSHUA T MD May 20, 2018 17:44
[2018-05-20 17:59] LABS: BILIRUBIN,URINE NEGATIVE (NEGATIVE); CLARITY,URINE SLIGHTLY CLOUDY; COLOR,URINE YELLOW; GLUCOSE, URINE (UA) 3+ (NEGATIVE); KETONES,URINE NEGATIVE (NEGATIVE); LEUKOCYTE ESTERASE ,URINE 3+ (NEGATIVE); NITRITE,URINE NEGATIVE (NEGATIVE); PH,URINE 5 (5-9); PROTEIN,URINE NEGATIVE (NEGATIVE); UROBILINOGEN,URINE NORMAL (NORMAL)
[2018-05-20 18:01] LABS: BASOPHILS % (AUTO) 0 % (0-10); EOSINOPHILS # (AUTO) 0.1 10^3/uL (0.0-0.3); EOSINOPHILS % (AUTO) 2 % (0-10); HEMATOCRIT 33 % (35-52); HEMOGLOBIN 11.2 G/DL (11.5-16.0); LYMPHOCYTES # (AUTO) 2.5 X 10^3 (1.0-4.0); LYMPHOCYTES % (AUTO) 34 % (12-44); MEAN CORPUSCULAR HEMOGLOBIN 28 PG (25-34); MEAN CORPUSCULAR HGB CONC 34 G/DL (32-36); MEAN CORPUSCULAR VOLUME 83 FL (80-99); MEAN PLATELET VOLUME 9.5 FL (7.4-10.4); MONOCYTES # (AUTO) 0.5 X 10^3 (0.0-1.0); MONOCYTES % (AUTO) 6 % (0-12); NEUTROPHILS # (AUTO) 4.4 X 10^3 (1.8-7.8); NEUTROPHILS % (AUTO) 58 % (42-75); PLATELET COUNT 376 10^3/uL (130-400); RED BLOOD COUNT 3.97 10^6/uL (4.35-5.85); RED CELL DISTRIBUTION WIDTH 14.1 % (10.0-14.5); WHITE BLOOD COUNT 7.6 10^3/uL (4.3-11.0)
[2018-05-20 18:06] LABS: BACTERIA,URINE LARGE /HPF; RBC,URINE 0-2 /HPF; WBC,URINE 25-50 /HPF
[2018-05-20 18:10] LABS: INR 0.9 (0.8-1.4); PROTHROMBIN TIME PATIENT 12.3 SEC (12.2-14.7)
[2018-05-20 18:19] LABS: ALBUMIN 3.8 GM/DL (3.2-4.5); BILIRUBIN,TOTAL 0.3 MG/DL (0.1-1.0); CALCIUM 9.1 MG/DL (8.5-10.1); CREATININE SERUM 1.1 MG/DL (0.60-1.30); POTASSIUM 3.9 MMOL/L (3.6-5.0); TOTAL PROTEIN 6.9 GM/DL (6.4-8.2)
[2018-05-20] MEDS: cefTRIAXone FOR IV USE 1,000 MG in NS (IVPB) 50 ML IV ONE (18:48)
[2018-05-20] MEDS: NS IV 1000 ML 1,000 ML IV ONE (18:48)
[2018-05-20] MEDS: FLUCONAZOLE 150 MG TABLET (ED ONLY) PO ONE (18:51)
[2018-05-20] MEDS: metroNIDAZOLE 500 MG (FLAGYL) TAB PO ONE (18:51)
[2018-05-20] MEDS ORDERED: CEFD300C3 PO (19:04)
[2018-05-20] MEDS ORDERED: FLUC150T PO (19:04)
[2018-05-20] MEDS ORDERED: METR500T PO (19:05)
[2018-05-20] MEDS ORDERED: LACT1CAP72 PO (19:05)
[2018-05-20 19:23] VITALS: BP 126/82
--- OUTSIDE RECORDS SUMMARY | 2018-05-21 03:52 | XMS REPORT ---
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 Active 351511169 Problem Type 2 diabetes mellitus without complications E11.9 Active 003432319 Problem Memory changes R41.3 Active 519665992 Problem New daily persistent headache G44.52 Active 320523527578582 Problem Grief F43.20 Active 278010842 Problem Generalized anxiety disorder F41.1 Active 38878973 Problem Hypersomnia G47.10 Active 57835900 Problem Moderate episode of recurrent major depressive disorder F33.1 Active 266150750 Problem High serum estradiol R79.89 Active 484074899 Problem Unspecified ovarian cyst, left side N83.202 Active 35064252001247237 Problem Restless legs G25.81 Active 96739497 Problem Chronic pain syndrome G89.4 Active 573185482 Problem Unspecified ovarian cyst, right side N83.201 Active 91136953 Problem Chronic tension-type headache, intractable G44.221 Active 187334818 Problem History of vitamin D deficiency Z86.39 Active 078710657 Problem Obesity (BMI 30-39.9) E66.9 Active 516109607 ALLERGIES No Information ENCOUNTERS Encounter Location Date Diagnosis [facility] [address] [facility] [id number], [place] [address] May, [facility] [address], [place] [address] Apr, [facility] [id number], [place] [address] Apr, [facility] [id number] [place] [address] 17 Apr, 2018 Urinary tract infection without hematuria, site unspecified N39.0 [place] [address] [address] 13 Apr, 2018 Dysuria R30.0 and Acute cystitis with hematuria N30.01 [place] [id number] [place] [address]91- [address] 24 Mar, 2018 Restless legs G25.81 [place] [address] [address] 16 Mar, 2018 [place] [address] [address] Mar, Restless legs G25.81 ; Acute non-recurrent frontal sinusitis J01.10 and Type 2 diabetes mellitus without complications E11.9 [place] [address] [address] 27 Feb, 2018 Type 2 diabetes mellitus without complications E11.9 [place] [id number] [place] [address] Feb, Chronic pain syndrome G89.4 [place] [id number] [place] [address] January, [place] [id number] [place] [address]- [address] January, Chronic pain syndrome G89.4 [place] [id number] [place] [address] 2[address]- 365[address] January, Left upper quadrant abdominal tenderness without rebound tenderness R10.812 ; Complex cyst of left ovary N83.292 and Complex cyst of right ovary N83.291 [place] [id number] [place] [address]- [address] Dec, Syncope, unspecified syncope type R55 and Mass of soft tissue of right upper extremity R22.31 [place] [id number] [place] [address] Dec, [facility] [address] [place] [address] 80[address] Dec, Moderate episode of recurrent major depressive disorder F33.1 ; Generalized anxiety disorder F41.1 and Grief F43.20 [facility] [id number] [place] [address]- [address] Dec, Moderate episode of recurrent major depressive disorder F33.1 and Generalized anxiety disorder F41.1 [facility] [address] [place] [address]67[address] Dec, [facility] [id number] [place] [address] 61393- 5018 Dec, Chronic pain syndrome G89.4 [facility] [id number] [place] [address] 20[address] Dec, [facility] [id number] [place] [address]71- 74[address] Nov, Moderate episode of recurrent major depressive disorder F33.1 and Generalized anxiety disorder F41.1 [facility] [address] [place] [address] 81728- [address] Nov, [facility] [address] [place] [address] 23510- 5831 Nov, Chronic pain syndrome G89.4 ; Hypersomnia G47.10 ; Memory changes R41.3 ; New daily persistent headache G44.52 ; Post-menopausal Z78.0 and History of gastric surgery Z98.890 [facility] [address], [place] [address] Nov, [facility] [id number] [place] [address] 8[address]32- [address] Nov, Chronic pain syndrome G89.4 [facility] [address], [place] [address] Oct, Moderate episode of recurrent major depressive disorder F33.1 and Generalized anxiety disorder F41.1 [place] [address] [place] [address] 12797- [address] Oct, Type 2 diabetes mellitus without complications E11.9 ; Essential hypertension I10 ; Restless legs G25.81 ; Chronic tension-type headache, intractable G44.221 ; Nasal congestion R09.81 ; 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 and Chronic pain syndrome G89.4 [place] [id number] [place] [address] 57[address]- [address] Oct, Moderate episode of recurrent major depressive disorder F33.1 [place] [id number] [place] [address] 6[address]- [address] Oct, [place] [id number] [place] [address] 81761- [address] Sep, Moderate episode of recurrent major depressive disorder F33.1 and Generalized anxiety disorder F41.1 [place] [id number] [place] [address] 65[address]- 14[address] Sep, Moderate episode of recurrent major depressive disorder F33.1 ; Generalized anxiety disorder F41.1 and Grief F43.20 [place] [address] [place] [address] 48958- 24[address] Sep, Moderate episode of recurrent major depressive disorder F33.1 [place] [address] [place] [address] 87358- 277[address] Sep, [place] [id number] [place] [address]13- [address] Aug, Chronic pain syndrome G89.4 [place] [id number] [place] [address] 69969- [address] Aug, [place] [id number] [place] [address] 16709- 5230 Aug, Moderate episode of recurrent major depressive disorder F33.1 ; Generalized anxiety disorder F41.1 and Grief F43.20 [place] [address], [place] [address] Aug, [place] [id number] [place] [address] 742[address]- [address] Aug, [place] [id number] [place] [address] 45989- 5[address] Jul, Chronic pain syndrome G89.4 ; Positive depression screening Z13.89 ; Essential hypertension I10 ; Restless legs G25.81 ; Severe single current episode of major depressive disorder, 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 ; Anxiety F41.9 ; Chronic tension-type headache, intractable G44.221 ; Type 2 diabetes mellitus without complications E11.9 ; 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 ; Right elbow pain M25.521 and Family history of pancreatic cancer Z80.0 [place] [id number] [place] [address] 6[address]- [address] Jun, Chronic pain syndrome G89.4 [place] [id number] [place] [address] 87259- 50[address] May, Chronic pain syndrome G89.4 and Anxiety F41.9 [place] [id number] [place] [address] Apr, Diabetes E11.9 ; Obesity (BMI 30-39.9) E66.9 ; Severe single current episode of major depressive disorder, 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 ; Restless legs G25.81 ; Essential hypertension I10 ; Chronic tension- type headache, intractable G44.221 ; Anxiety F41.9 ; Chronic pain syndrome G89.4 and Nausea R11.0 [place] [address] [place] [address] 22194- [address] Mar, Diabetes E11.9 ; Obesity (BMI 30-39.9) E66.9 ; Severe single current episode of major depressive disorder, 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 ; Restless legs G25.81 ; Essential hypertension I10 ; Chronic tension- type headache, intractable G44.221 ; Anxiety F41.9 and Chronic pain syndrome G89.4 [facility] [address] [facility] [id number] [address] Feb, Diaphoresis R61 ; Diabetes E11.9 ; Elevated blood sugar R73.9 and Acute vomiting R11.10 [facility] [address] [facility] [id number] [place] [id number] Mar, Dental examination V72.2 IMMUNIZATIONS No Known Immunizations SOCIAL HISTORY Never Assessed REASON FOR VISIT Controlled Med Refill PLAN OF CARE VITAL SIGNS MEDICATIONS Medication Instructions Dosage Frequency Start Date End Date Duration Status Lyrica 50 mg Orally Twice a day 1 capsule 12h Sep, Active RESULTS No Results PROCEDURES No Known procedures INSTRUCTIONS MEDICATIONS ADMINISTERED No Known Medications MEDICAL (GENERAL) HISTORY Type Description Date Medical History HTN Medical History RLS Medical History Diabetes- Type 2 Medical History Fibromyalgia Medical History Depression Medical History Anxiety Medical History stress/clustered headaches Medical History Bilat Complex Ovarian Cysts Surgical History Gallbladder 1987 Surgical History Appendectomy Surgical History Exploratory Lap Surgical History Foot Surgery Surgical History Gastric Bypass Surgical History D&C X 5 Surgical History Partial hysterectomy Surgical History Abdominal Plasty Surgical History Carpal tunnel repair bilaterally and trigger finger release x2. 06/2017 Hospitalization History Post Surgeries Hospitalization History denies any past psych hospitalization
--- OUTSIDE RECORDS SUMMARY | 2018-05-21 03:52 | XMS REPORT ---
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 Active 107378840 Problem Type 2 diabetes mellitus without complications E11.9 Active 586597528 Problem Memory changes R41.3 Active 197591768 Problem New daily persistent headache G44.52 Active 828462617969105 Problem Grief F43.20 Active 915079181 Problem Generalized anxiety disorder F41.1 Active 25331362 Problem Hypersomnia G47.10 Active 88102582 Problem Moderate episode of recurrent major depressive disorder F33.1 Active 372852199 Problem High serum estradiol R79.89 Active 378038382 Problem Unspecified ovarian cyst, left side N83.202 Active 21130156135731521 Problem Restless legs G25.81 Active 54733209 Problem Chronic pain syndrome G89.4 Active 606609436 Problem Unspecified ovarian cyst, right side N83.201 Active 08146471 Problem Chronic tension-type headache, intractable G44.221 Active 767858489 Problem History of vitamin D deficiency Z86.39 Active 074434994 Problem Obesity (BMI 30-39.9) E66.9 Active 345900449 ALLERGIES No Information ENCOUNTERS Encounter Location Date Diagnosis [facility] [address] [facility] [id number] [address] May, [facility] [address] [address] Apr, [facility] [id number] [address] Apr, [facility] [id number] [place] [address] 59979- 1509 17 Apr, 2018 Urinary tract infection without hematuria, site unspecified N39.0 [place] [address] [address] 13 Apr, 2018 Dysuria R30.0 and Acute cystitis with hematuria N30.01 [place] [id number] [place] [address] 65903- 6645 24 Mar, 2018 Restless legs G25.81 [place] [address] [address]- [address] 16 Mar, 2018 [place] [address] [address]- 2508 Mar, Restless legs G25.81 ; Acute non-recurrent frontal sinusitis J01.10 and Type 2 diabetes mellitus without complications E11.9 [place] [address] [address] 27 Feb, 2018 Type 2 diabetes mellitus without complications E11.9 [place] [address] [id number] [place] [address] 88734- 4117 Feb, Chronic pain syndrome G89.4 [place] [id number] [place] [address] 00481- 3394 January, [place] [id number] [place] [address] 43244- 5932 January, Chronic pain syndrome G89.4 [place] [address] [id number] [place] [address] 20686- 6673 January, Left upper quadrant abdominal tenderness without rebound tenderness R10.812 ; Complex cyst of left ovary N83.292 and Complex cyst of right ovary N83.291 [place] [id number] [place] [address] 01165- 3572 Dec, Syncope, unspecified syncope type R55 and Mass of soft tissue of right upper extremity R22.31 [place] [address] [address] [id number] [place] [address] 27866- 4100 Dec, [facility] [address] [place] [address] 71804- 8116 Dec, Moderate episode of recurrent major depressive disorder F33.1 ; Generalized anxiety disorder F41.1 and Grief F43.20 [facility] [id number] [place] [address] 92742- 2874 Dec, Moderate episode of recurrent major depressive disorder F33.1 and Generalized anxiety disorder F41.1 [facility] [address] [place] [address] 14321- 5014 Dec, [facility] [id number] [place] [address] 89780- 6860 Dec, Chronic pain syndrome G89.4 [facility] [id number] [place] [address] 99439- 1942 Dec, [facility] [id number] [place] [address] 84102- 6335 Nov, Moderate episode of recurrent major depressive disorder F33.1 and Generalized anxiety disorder F41.1 [facility] [address] [place] [address] 53688- 3712 Nov, [facility] [address] [place] [address] 56627- 1157 Nov, Chronic pain syndrome G89.4 ; Hypersomnia G47.10 ; Memory changes R41.3 ; New daily persistent headache G44.52 ; Post-menopausal Z78.0 and History of gastric surgery Z98.890 [facility] [address] [address] Nov, [facility] [id number] [place] [address] 12949- 3766 Nov, Chronic pain syndrome G89.4 [facility] [address], [place] [address] Oct, Moderate episode of recurrent major depressive disorder F33.1 and Generalized anxiety disorder F41.1 [place] [address] [place] [address] 08152- 8396 Oct, Type 2 diabetes mellitus without complications E11.9 ; Essential hypertension I10 ; Restless legs G25.81 ; Chronic tension-type headache, intractable G44.221 ; Nasal congestion R09.81 ; 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 and Chronic pain syndrome G89.4 [place] [address] [id number] [place] [address] 31012- 3944 Oct, Moderate episode of recurrent major depressive disorder F33.1 [place] [id number] [place] [address] 62366- 0456 Oct, [place] [address] [id number] [place] [address] 38230- 9665 Sep, Moderate episode of recurrent major depressive disorder F33.1 and Generalized anxiety disorder F41.1 [place] [address] [id number] [place] [address] 84589- 6275 Sep, Moderate episode of recurrent major depressive disorder F33.1 ; Generalized anxiety disorder F41.1 and Grief F43.20 [place] [address] [place] [address] 46423- 2641 Sep, Moderate episode of recurrent major depressive disorder F33.1 [place] [address] [place] [address] 76007- 4016 Sep, [place] [address] [id number] [place] [address] 66099- 9090 Aug, Chronic pain syndrome G89.4 [place] [address] [id number] [place] [address] 81669- 2466 Aug, [place] [address] [address] [id number] [place] [address] 81634- 4303 Aug, Moderate episode of recurrent major depressive disorder F33.1 ; Generalized anxiety disorder F41.1 and Grief F43.20 [place] [address] [address] Aug, [place] [address] [place] [address] [id number] [place] [address] 17503- 0063 Aug, [place] [address] [place] [address] [id number] [place] [address] 15725- 3998 Jul, Chronic pain syndrome G89.4 ; Positive depression screening Z13.89 ; Essential hypertension I10 ; Restless legs G25.81 ; Severe single current episode of major depressive disorder, 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 ; Anxiety F41.9 ; Chronic tension-type headache, intractable G44.221 ; Type 2 diabetes mellitus without complications E11.9 ; 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 ; Right elbow pain M25.521 and Family history of pancreatic cancer Z80.0 [place] [address] [place] [address] [id number] [place] [address] 71865- 0534 Jun, Chronic pain syndrome G89.4 [place] [address] [place] [address] [id number] [place] [address] 65894- 6587 May, Chronic pain syndrome G89.4 and Anxiety F41.9 [place] [id number] [place] [address] 13136- 5675 Apr, Diabetes E11.9 ; Obesity (BMI 30-39.9) E66.9 ; Severe single current episode of major depressive disorder, 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 ; Restless legs G25.81 ; Essential hypertension I10 ; Chronic tension- type headache, intractable G44.221 ; Anxiety F41.9 ; Chronic pain syndrome G89.4 and Nausea R11.0 [place] [address] [place] [address] 59564- 6857 Mar, Diabetes E11.9 ; Obesity (BMI 30-39.9) E66.9 ; Severe single current episode of major depressive disorder, 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 ; Restless legs G25.81 ; Essential hypertension I10 ; Chronic tension- type headache, intractable G44.221 ; Anxiety F41.9 and Chronic pain syndrome G89.4 [facility] [address] [facility] [id number] [place] [address] Feb, Diaphoresis R61 ; Diabetes E11.9 ; Elevated blood sugar R73.9 and Acute vomiting R11.10 [facility] [address] [facility] [id number] [place] [id number] Mar, Dental examination V72.2 IMMUNIZATIONS No Known Immunizations SOCIAL HISTORY Never Assessed REASON FOR VISIT Med Refill PLAN OF CARE VITAL SIGNS MEDICATIONS Medication Instructions Dosage Frequency Start Date End Date Duration Status Metformin HCl 1000 MG TAKE ONE TABLET BY MOUTH TWICE DAILY WITH MEALS 30 Active RESULTS No Results PROCEDURES No Known procedures INSTRUCTIONS MEDICATIONS ADMINISTERED No Known Medications MEDICAL (GENERAL) HISTORY Type Description Date Medical History HTN Medical History RLS Medical History Diabetes- Type 2 Medical History Fibromyalgia Medical History Depression Medical History Anxiety Medical History stress/clustered headaches Medical History Bilat Complex Ovarian Cysts Surgical History Gallbladder 1986 Surgical History Appendectomy Surgical History Exploratory Lap Surgical History Foot Surgery Surgical History Gastric Bypass Surgical History D&C X 5 Surgical History Partial hysterectomy Surgical History Abdominal Plasty Surgical History Carpal tunnel repair bilaterally and trigger finger release x2. 06/2017 Hospitalization History Post Surgeries Hospitalization History denies any past psych hospitalization
--- OUTSIDE RECORDS SUMMARY | 2018-05-21 03:53 | XMS REPORT ---
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 Active 583167733 Problem Type 2 diabetes mellitus without complications E11.9 Active 123047056 Problem Memory changes R41.3 Active 272629599 Problem New daily persistent headache G44.52 Active 392679498825773 Problem Grief F43.20 Active 360193529 Problem Generalized anxiety disorder F41.1 Active 87987690 Problem Hypersomnia G47.10 Active 48981439 Problem Moderate episode of recurrent major depressive disorder F33.1 Active 331383272 Problem High serum estradiol R79.89 Active 023263874 Problem Unspecified ovarian cyst, left side N83.202 Active 59238845746613063 Problem Restless legs G25.81 Active 27641575 Problem Chronic pain syndrome G89.4 Active 677336374 Problem Unspecified ovarian cyst, right side N83.201 Active 05239136 Problem Chronic tension-type headache, intractable G44.221 Active 948994235 Problem History of vitamin D deficiency Z86.39 Active 550205566 Problem Obesity (BMI 30-39.9) E66.9 Active 694557743 ALLERGIES No Information ENCOUNTERS Encounter Location Date Diagnosis [facility] [id number] [address] Apr, [facility] [address] [place] [address] 61151- 7334 Apr, Dysuria R30.0 and Acute cystitis with hematuria N30.01 [facility] [id number] [place] [address] 23833- 3040 Mar, Restless legs G25.81 [place] [address] [id number] [place] [address] 53223- 9232 Mar, [place] [address] [address]- 7596 Mar, Restless legs G25.81 ; Acute non-recurrent frontal sinusitis J01.10 and Type 2 diabetes mellitus without complications E11.9 [place] [address] [address]- 2354 Feb, Type 2 diabetes mellitus without complications E11.9 [place] [address] 92347- 2395 Feb, Chronic pain syndrome G89.4 [place] [address] [address]25- 7129 January, [place] [address] 79015- 1537 January, Chronic pain syndrome G89.4 [place] [address] [address] [id number] [place] [address] 00482- 6727 January, Left upper quadrant abdominal tenderness without rebound tenderness R10.812 ; Complex cyst of left ovary N83.292 and Complex cyst of right ovary N83.291 [place] [id number] [place] [address] 82995- 7856 Dec, Syncope, unspecified syncope type R55 and Mass of soft tissue of right upper extremity R22.31 [place] [address] [address] [id number] [place] [address] 08262- 4126 Dec, [place] [address] 18995- 5520 Dec, Moderate episode of recurrent major depressive disorder F33.1 ; Generalized anxiety disorder F41.1 and Grief F43.20 [place] [address] [address] [id number] [place] [address] 39288- 7496 Dec, Moderate episode of recurrent major depressive disorder F33.1 and Generalized anxiety disorder F41.1 [place] [address] [place] [address] 89422- 7977 Dec, [facility] [address] [id number] [place] [address] 04620- 3747 Dec, Chronic pain syndrome G89.4 [place] [address] [address] [id number] [place] [address] 69746- 4255 Dec, [place] [address] [address] [id number] [place] [address] 23154- 2900 Nov, Moderate episode of recurrent major depressive disorder F33.1 and Generalized anxiety disorder F41.1 [place] [address] [address] [id number] [place] [address] 23609- 1788 Nov, [place] [address] [address] [id number] [place] [address] 74352- 7200 Nov, Chronic pain syndrome G89.4 ; Hypersomnia G47.10 ; Memory changes R41.3 ; New daily persistent headache G44.52 ; Post-menopausal Z78.0 and History of gastric surgery Z98.890 [place] [address] [id number] [place] [address] 98050- 8414 Nov, [place] [address] [address] [id number] [place] [address] 69525- 5421 Nov, Chronic pain syndrome G89.4 [place] [address] [address] [id number] [place] [address] 36331- 2692 Oct, Moderate episode of recurrent major depressive disorder F33.1 and Generalized anxiety disorder F41.1 [place] [address] [address] [id number] [place] [address] 03296- 9613 Oct, Type 2 diabetes mellitus without complications E11.9 ; Essential hypertension I10 ; Restless legs G25.81 ; Chronic tension-type headache, intractable G44.221 ; Nasal congestion R09.81 ; 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 and Chronic pain syndrome G89.4 [facility] [address] [facility] [id number] [address]- 2606 Oct, Moderate episode of recurrent major depressive disorder F33.1 [facility] [id number] [address] 2546 Oct, [facility] [address] [address] 2546 Sep, Moderate episode of recurrent major depressive disorder F33.1 and Generalized anxiety disorder F41.1 [facility] [id number] [address] 2546 Sep, Moderate episode of recurrent major depressive disorder F33.1 ; Generalized anxiety disorder F41.1 and Grief F43.20 [facility] [id number] [address]- 1036 Sep, Moderate episode of recurrent major depressive disorder F33.1 [facility] [address] [address] 2546 Sep, [facility] [address] [place] [address] 87274- 5576 Aug, Chronic pain syndrome G89.4 [facility] [id number] [address] 2546 Aug, [facility] [address] [address] 2546 Aug, Moderate episode of recurrent major depressive disorder F33.1 ; Generalized anxiety disorder F41.1 and Grief F43.20 [facility] [address] [address]- 3776 Aug, [facility] [id number] [place] [address] 33320 2546 Aug, [facility] [id number] [address]- 7496 Jul, Chronic pain syndrome G89.4 ; Positive depression screening Z13.89 ; Essential hypertension I10 ; Restless legs G25.81 ; Severe single current episode of major depressive disorder, 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 ; Anxiety F41.9 ; Chronic tension-type headache, intractable G44.221 ; Type 2 diabetes mellitus without complications E11.9 ; 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 ; Right elbow pain M25.521 and Family history of pancreatic cancer Z80.0 [facility] [address] [address]- [address] Jun, Chronic pain syndrome G89.4 [place] [address] 06739- 9959 May, Chronic pain syndrome G89.4 and Anxiety F41.9 [facility] [address] [id number] [place] [address] 19040- 1647 Apr, Diabetes E11.9 ; Obesity (BMI 30-39.9) E66.9 ; Severe single current episode of major depressive disorder, 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 ; Restless legs G25.81 ; Essential hypertension I10 ; Chronic tension- type headache, intractable G44.221 ; Anxiety F41.9 ; Chronic pain syndrome G89.4 and Nausea R11.0 [facility] [id number] [place] [address] 31113- 2345 Mar, Diabetes E11.9 ; Obesity (BMI 30-39.9) E66.9 ; Severe single current episode of major depressive disorder, 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 ; Restless legs G25.81 ; Essential hypertension I10 ; Chronic tension- type headache, intractable G44.221 ; Anxiety F41.9 and Chronic pain syndrome G89.4 [facility] [id number] [place] [address] 30171 -6618 Feb, Diaphoresis R61 ; Diabetes E11.9 ; Elevated blood sugar R73.9 and Acute vomiting R11.10 [facility] [id number] [place] [id number] Mar, Dental examination V72.2 IMMUNIZATIONS No Known Immunizations SOCIAL HISTORY Never Assessed REASON FOR VISIT PLAN OF CARE VITAL SIGNS MEDICATIONS Unknown Medications RESULTS No Results PROCEDURES No Known procedures [...]
--- OUTSIDE RECORDS SUMMARY | 2018-05-21 03:53 | XMS REPORT ---
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 850442919 Problem Type 2 diabetes mellitus without complications E11.9 Active 577971053 Problem Memory changes R41.3 Active 212640254 Problem New daily persistent headache G44.52 Active 190813777299918 Problem Grief F43.20 Active 389479718 Problem Generalized anxiety disorder F41.1 Active 70784019 Problem Hypersomnia G47.10 Active 68694495 Problem Moderate episode of recurrent major depressive disorder F33.1 Active 564689555 Problem High serum estradiol R79.89 Active 705998282 Problem Unspecified ovarian cyst, left side N83.202 Active 32647004140349719 Problem Restless legs G25.81 Active 19709812 Problem Chronic pain syndrome G89.4 Active 132685404 Problem Unspecified ovarian cyst, right side N83.201 Active 53156754 Problem Chronic tension-type headache, intractable G44.221 Active 389982247 Problem History of vitamin D deficiency Z86.39 Active 766985423 Problem Obesity (BMI 30-39.9) E66.9 Active 613054762 ALLERGIES No Known Allergies ENCOUNTERS Encounter Location Date Diagnosis [facility] [id number] [address] Mar, Restless legs G25.81 [facility] [id number] [address] Mar, [facility] [id number] [address] Mar, Restless legs G25.81 ; Acute non-recurrent frontal sinusitis J01.10 and Type 2 diabetes mellitus without complications E11.9 [place] [id number] [place] [address] 85660- 8942 27 Feb, 2018 Type 2 diabetes mellitus without complications E11.9 [place] [id number] [place] [address] 21761- 7889 14 Feb, 2018 Chronic pain syndrome G89.4 [place] [id number] [place] [address] 52557- 7236 January, [place] [id number] [place] [address] 21720- 9756 January, Chronic pain syndrome G89.4 [place] [id number] [place] [address] 25523- 5653 January, Left upper quadrant abdominal tenderness without rebound tenderness R10.812 ; Complex cyst of left ovary N83.292 and Complex cyst of right ovary N83.291 [place] [id number] [place] [address] 04626- 0806 Dec, Syncope, unspecified syncope type R55 and Mass of soft tissue of right upper extremity R22.31 [place] [id number] [place] [address] 72605- 9220 Dec, [place] [id number] [place] [address] 08573- 6804 Dec, Moderate episode of recurrent major depressive disorder F33.1 ; Generalized anxiety disorder F41.1 and Grief F43.20 [place] [id number] [place] [address] 55473- 0381 Dec, Moderate episode of recurrent major depressive disorder F33.1 and Generalized anxiety disorder F41.1 [place] [id number] [place] [address] 31113- 8651 Dec, [place] [address] [address] Dec, Chronic pain syndrome G89.4 [facility] [id number] [place] [address] 50505- 0998 Dec, [facility] [id number] [place] [address] 65349- 6487 Nov, Moderate episode of recurrent major depressive disorder F33.1 and Generalized anxiety disorder F41.1 [place] [id number] [place] [address] 48334- 2895 Nov, [place] [id number] [place] [address] 45453- 5702 Nov, Chronic pain syndrome G89.4 ; Hypersomnia G47.10 ; Memory changes R41.3 ; New daily persistent headache G44.52 ; Post-menopausal Z78.0 and History of gastric surgery Z98.890 [place] [id number] [place] [address] 98368- 0016 Nov, [place] [id number] [place] [address] 34756- 9301 Nov, Chronic pain syndrome G89.4 [place] [id number] [place] [address] 13217- 5713 Oct, Moderate episode of recurrent major depressive disorder F33.1 and Generalized anxiety disorder F41.1 [place] [id number] [place] [address] 73294- 3131 Oct, Type 2 diabetes mellitus without complications E11.9 ; Essential hypertension I10 ; Restless legs G25.81 ; Chronic tension-type headache, intractable G44.221 ; Nasal congestion R09.81 ; 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 and Chronic pain syndrome G89.4 [place] [id number] [place] [address] 44090- 4856 Oct, Moderate episode of recurrent major depressive disorder F33.1 [place] [id number] [place] [address] 53778- 6032 Oct, [facility] [address] [address] Sep, Moderate episode of recurrent major depressive disorder F33.1 and Generalized anxiety disorder F41.1 [facility] [address] [address] Sep, Moderate episode of recurrent major depressive disorder F33.1 ; Generalized anxiety disorder F41.1 and Grief F43.20 [place] [id number] [address] Sep, Moderate episode of recurrent major depressive disorder F33.1 [place] [id number] [place] [address] 77133- 1245 Sep, [place] [id number] [place] [address] 18660- 9280 Aug, Chronic pain syndrome G89.4 [place] [id number] [place] [address] 49825- 9001 Aug, [place] [id number] [place] [address] 14655- 8371 Aug, Moderate episode of recurrent major depressive disorder F33.1 ; Generalized anxiety disorder F41.1 and Grief F43.20 [place] [address] [address] Aug, [place] [address] [place] [address] 62249- 0222 Aug, [place] [address] [address] Jul, Chronic pain syndrome G89.4 ; Positive depression screening Z13.89 ; Essential hypertension I10 ; Restless legs G25.81 ; Severe single current episode of major depressive disorder, 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 ; Anxiety F41.9 ; Chronic tension-type headache, intractable G44.221 ; Type 2 diabetes mellitus without complications E11.9 ; 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 ; Right elbow pain M25.521 and Family history of pancreatic cancer Z80.0 [facility] [address] [place] [id number] [place] [address] 38234- 7621 Jun, Chronic pain syndrome G89.4 [place] [id number] [place] [address] 32980- 7096 May, Chronic pain syndrome G89.4 and Anxiety F41.9 [facility] [address] [place] [address] 20034- 4310 Apr, Diabetes E11.9 ; Obesity (BMI 30-39.9) E66.9 ; Severe single current episode of major depressive disorder, 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 ; Restless legs G25.81 ; Essential hypertension I10 ; Chronic tension- type headache, intractable G44.221 ; Anxiety F41.9 ; Chronic pain syndrome G89.4 and Nausea R11.[address] [address]- [address] Mar, Diabetes E11.9 ; Obesity (BMI 30-39.9) E66.9 ; Severe single current episode of major depressive disorder, 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 ; Restless legs G25.81 ; Essential hypertension I10 ; Chronic tension- type headache, intractable G44.221 ; Anxiety F41.9 and Chronic pain syndrome G89.4 [facility] [id number] [place] [address] 56504 -5911 Feb, Diaphoresis R61 ; Diabetes E11.9 ; Elevated blood sugar R73.9 and Acute vomiting R11.10 [facility] [address] [place] [id number] Mar, Dental examination V72.2 IMMUNIZATIONS No Known Immunizations SOCIAL HISTORY Never Assessed REASON FOR VISIT dizziness, headaches, reports LOC and states pt started shaking and fell , came to about 20-30 seconds later----DBennettRN, right arm pain began last night, knot in wrist send pain shooting to shoulder when she presses on it. Thumb, first and second finger numb, tingly and cold, had steroid injection in right hand by Dr. Swift 12/31/17 PLAN OF CARE Activity Details Follow Up prn Reason: VITAL SIGNS Height 65 in 2018-01-05 Weight 229 lbs 2018-01-05 Temperature 98.5 degrees Fahrenheit 2018-01-05 Heart Rate 80 bpm 2018-01-05 Respiratory Rate 20 2018-01-05 BMI 38.10 kg/m2 2018-01-05 Blood pressure systolic 108 mmHg 2018-01-05 Blood pressure diastolic 70 mmHg 2018-01-05 MEDICATIONS Medication Instructions Dosage Frequency Start Date End Date Duration Status Ondansetron HCl 4 MG Orally 3 times a day TAKE ONE TABLET 8h 10 Active Topamax 25 MG Orally Once a day 2 tablets in the evening 24h 30 days Active Lisinopril 10 mg Orally Once a day TAKE ONE TABLET BY MOUTH ONCE DAILY 24h 30 Active HydrOXYzine HCl 50 mg Orally once a day at bedtime as needed 1 tablet Dec, 30 days Active Ropinirole HCl 0.5 MG Orally Once a day 1-2 tablet 1 to 3 hours before bedtime 24h Active Metformin HCl 1000 MG TAKE ONE TABLET BY MOUTH TWICE DAILY WITH MEALS 30 Active Januvia 100 MG TAKE ONE TABLET BY MOUTH ONCE DAILY 30 Active Lyrica 50 mg Orally Twice a day 1 capsule 12h Sep, Active Cyclobenzaprine HCl 10 mg Orally 2 times a day 1 tablet as needed 12h Nov, Feb, 28 days Active Vitamin D3 Adult Gummies 1000 UNIT Orally Once a day 3 tablet 24h Active Cymbalta 30 MG Orally 4 times a day 1 capsule 6h Dec, 30 day(s ) Active RESULTS No Results PROCEDURES No Known [...]
--- OUTSIDE RECORDS SUMMARY | 2018-05-21 03:53 | XMS REPORT ---
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 Active 532977570 Problem Type 2 diabetes mellitus without complications E11.9 Active 288743576 Problem Memory changes R41.3 Active 961002723 Problem New daily persistent headache G44.52 Active 755087246070631 Problem Grief F43.20 Active 447572806 Problem Generalized anxiety disorder F41.1 Active 86900747 Problem Hypersomnia G47.10 Active 46282224 Problem Moderate episode of recurrent major depressive disorder F33.1 Active 922202894 Problem High serum estradiol R79.89 Active 380372704 Problem Unspecified ovarian cyst, left side N83.202 Active 79543357389959793 Problem Restless legs G25.81 Active 38389794 Problem Chronic pain syndrome G89.4 Active 712130443 Problem Unspecified ovarian cyst, right side N83.201 Active 70326562 Problem Chronic tension-type headache, intractable G44.221 Active 783723585 Problem History of vitamin D deficiency Z86.39 Active 005610255 Problem Obesity (BMI 30-39.9) E66.9 Active 553304877 ALLERGIES No Known Allergies ENCOUNTERS Encounter Location Date Diagnosis [facility] [address] [facility] [id number] [address] Apr, [facility] [address] [address] Mar, Restless legs G25.81 [facility] [id number] [address] Mar, [place] [id number] [place] [address] 48787- 2120 Mar, Restless legs G25.81 ; Acute non-recurrent frontal sinusitis J01.10 and Type 2 diabetes mellitus without complications E11.9 [place] [id number] [place] [address] 60456- 1251 27 Feb, 2018 Type 2 diabetes mellitus without complications E11.9 [place] [id number] [place] [address] 05663- 3403 14 Feb, 2018 Chronic pain syndrome G89.4 [place] [id number] [place] [address] 67236- 4589 January, [place] [id number] [place] [address] 88558- 9324 January, Chronic pain syndrome G89.4 [address] [id number] [place] [address] 32579- 9509 January, Left upper quadrant abdominal tenderness without rebound tenderness R10.812 ; Complex cyst of left ovary N83.292 and Complex cyst of right ovary N83.291 [place] [id number] [place] [address] 87072- 4542 Dec, Syncope, unspecified syncope type R55 and Mass of soft tissue of right upper extremity R22.31 [place] [id number] [place] [address] 82850- 4558 Dec, [place] [id number] [place] [address] 03971- 8191 Dec, Moderate episode of recurrent major depressive disorder F33.1 ; Generalized anxiety disorder F41.1 and Grief F43.20 [place] [id number] [place] [address] 42664- 6818 Dec, Moderate episode of recurrent major depressive disorder F33.1 and Generalized anxiety disorder F41.1 [place] [id number] [place] [address] 06223- 7299 Dec, [place] [address] [address]- 3772 Dec, Chronic pain syndrome G89.4 [place] [id number] [place] [address] 53083- 3934 Dec, [place] [id number] [place] [address] 66477- 8215 Nov, Moderate episode of recurrent major depressive disorder F33.1 and Generalized anxiety disorder F41.1 [facility] [id number] [place] [address] 85113- 2809 Nov, [address] [id number] [place] [address] 76690- 2721 Nov, Chronic pain syndrome G89.4 ; Hypersomnia G47.10 ; Memory changes R41.3 ; New daily persistent headache G44.52 ; Post-menopausal Z78.0 and History of gastric surgery Z98.890 [address] [address] [place] [address] 30738- 4138 Nov, [place] [id number] [place] [address] 42745- 7770 Nov, Chronic pain syndrome G89.4 [address] [id number] [place] [address] 94590- 0772 Oct, Moderate episode of recurrent major depressive disorder F33.1 and Generalized anxiety disorder F41.1 [place] [address] [place] [address] 90155- 9943 Oct, Type 2 diabetes mellitus without complications E11.9 ; Essential hypertension I10 ; Restless legs G25.81 ; Chronic tension-type headache, intractable G44.221 ; Nasal congestion R09.81 ; 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 and Chronic pain syndrome G89.4 [address] [address] [address]- 3796 Oct, Moderate episode of recurrent major depressive disorder F33.1 [place] [address], [place] [address]- 1692 Oct, [facility] [id number] [place] [address] 13850- 6521 Sep, Moderate episode of recurrent major depressive disorder F33.1 and Generalized anxiety disorder F41.1 [facility] [address] [address]- 1276 Sep, Moderate episode of recurrent major depressive disorder F33.1 ; Generalized anxiety disorder F41.1 and Grief F43.20 [facility] [address], [place] [address]- 3[address] Sep, Moderate episode of recurrent major depressive disorder F33.1 [facility] [address] [place] [address] 21692- 4996 Sep, [place] [id number] [place] [address] 42193- 3776 Aug, Chronic pain syndrome G89.4 [facility] [address], [place] [address]- 26[address] Aug, [facility] [id number] [place] [address] 44128- 6587 Aug, Moderate episode of recurrent major depressive disorder F33.1 ; Generalized anxiety disorder F41.1 and Grief F43.20 [address] [address] [address]- 5585 Aug, [facility] [address], [place] [address]- 4632 Aug, [facility] [address] [address]- 1736 Jul, Chronic pain syndrome G89.4 ; Positive depression screening Z13.89 ; Essential hypertension I10 ; Restless legs G25.81 ; Severe single current episode of major depressive disorder, 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 ; Anxiety F41.9 ; Chronic tension-type headache, intractable G44.221 ; Type 2 diabetes mellitus without complications E11.9 ; snf 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.4 ; Right elbow pain M25.521 and Family history of pancreatic cancer Z80.0 [facility] [id number] [place] [address] 14722- 1080 Jun, Chronic pain syndrome G89.4 [id number] [place] [address] 66264- 4395 May, Chronic pain syndrome G89.4 and Anxiety F41.9 [facility] [id number] [place] [address] 22611- 8046 Apr, Diabetes E11.9 ; Obesity (BMI 30-39.9) E66.9 ; Severe single current episode of major depressive disorder, 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 ; Restless legs G25.81 ; Essential hypertension I10 ; Chronic tension- type headache, intractable G44.221 ; Anxiety F41.9 ; Chronic pain syndrome G89.4 and Nausea R11.0 [facility] [address] [place] [address] 02467- 2640 Mar, Diabetes E11.9 ; Obesity (BMI 30-39.9) E66.9 ; Severe single current episode of major depressive disorder, 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 ; Restless legs G25.81 ; Essential hypertension I10 ; Chronic tension- type headache, intractable G44.221 ; Anxiety F41.9 and Chronic pain syndrome G89.4 [facility] [address] [place] [address] 70401 -7665 Feb, Diaphoresis R61 ; Diabetes E11.9 ; Elevated blood sugar R73.9 and Acute vomiting R11.10 [facility] [address] [place] [address] [id number] Mar, Dental examination V72.2 IMMUNIZATIONS No Known Immunizations SOCIAL HISTORY Never Assessed REASON FOR VISIT Pt presented to ER with stomach pain associated with eating that persisted x1 week. Pain presents in upper left quadrant of abdomen and radiates to left flank area. Gastric bypass performed in 2007. ER performed CT scan and reported a darkened mass at the end of her colon. ER practicioner told pt they suspected a stomach ulcer. Pt denies any hematemesis. [facility] PLAN OF CARE Activity Details Follow Up 3 Months Reason:DM VITAL SIGNS Height 65 in 2018-01-19 Weight 222.3 lbs 2018-01-19 Temperature 99.0 degrees Fahrenheit 2018-01-19 Heart Rate 92 bpm 2018-01-19 Respiratory Rate 18 2018-01-19 BMI 36.99 kg/m2 2018-01-19 Blood pressure systolic 130 mmHg 2018-01-19 Blood pressure diastolic 78 mmHg 2018-01-19 MEDICATIONS Medication Instructions Dosage Frequency Start Date End Date Duration Status Ondansetron HCl 4 MG Orally 3 times a day TAKE ONE TABLET 8h 10 Active Womens Multivitamin Active HydrOXYzine HCl 50 mg Orally once a day at bedtime as needed 1 tablet Dec, 30 days Active Lyrica 50 mg Orally Twice a day 1 capsule 12h Sep, Active Omeprazole 40 MG Orally Once a day 1 capsule 24h Active Ropinirole HCl 0.5 MG Orally Once a day 1-2 tablet 1 to 3 hours before bedtime 24h Active Cyclobenzaprine HCl 10 mg Orally 2 times a day 1 tablet as needed 12h 28 Nov, 2017 Feb, 28 days Active Macrobid 100 MG Orally every 12 hrs 1 capsule with food 12h Active Vitamin D3 Adult Gummies 1000 UNIT Orally Once a day 3 tablet 24h Active Calcium Active Metformin HCl 1000 MG TAKE ONE TABLET BY MOUTH TWICE DAILY WITH MEALS 30 Active Cymbalta 30 MG Orally 4 times a day 1 capsule 6h Dec, 30 day(s ) Active Januvia 100 MG TAKE ONE TABLET BY MOUTH ONCE DAILY 30 Active Lisinopril 10 mg Orally Once a day TAKE ONE TABLET BY MOUTH ONCE DAILY 24h 30 Active Topamax 25 MG Orally Once a day 2 tablets in the evening 24h 30 days Active RESULTS No Results PROCEDURES No Known [...]
--- OUTSIDE RECORDS SUMMARY | 2018-05-21 03:53 | XMS REPORT ---
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 Active 711554190 Problem Type 2 diabetes mellitus without complications E11.9 Active 844722338 Problem Memory changes R41.3 Active 157480744 Problem New daily persistent headache G44.52 Active 490091559000379 Problem Grief F43.20 Active 600252463 Problem Generalized anxiety disorder F41.1 Active 70866426 Problem Hypersomnia G47.10 Active 04146560 Problem Moderate episode of recurrent major depressive disorder F33.1 Active 198482330 Problem High serum estradiol R79.89 Active 241989048 Problem Unspecified ovarian cyst, left side N83.202 Active 91976562234135410 Problem Restless legs G25.81 Active 72970111 Problem Chronic pain syndrome G89.4 Active 599096868 Problem Unspecified ovarian cyst, right side N83.201 Active 91248417 Problem Chronic tension-type headache, intractable G44.221 Active 233235910 Problem History of vitamin D deficiency Z86.39 Active 383777118 Problem Obesity (BMI 30-39.9) E66.9 Active 739641552 ALLERGIES No Information ENCOUNTERS Encounter Location Date Diagnosis [facility] [address] [facility] [id number] [address] Apr, [facility] [address] [place] [id number] [address] Mar, Restless legs G25.81 [facility] [address] [facility] [id number], [place] [address] Mar, [place] [address] [place] [address] 45605- 0376 Mar, Restless legs G25.81 ; Acute non-recurrent frontal sinusitis J01.10 and Type 2 diabetes mellitus without complications E11.9 [place] [address] [place] [id number] [place] [address] 62560- 9394 27 Feb, 2018 Type 2 diabetes mellitus without complications E11.9 [place] [address] [address]- [address] 14 Feb, 2018 Chronic pain syndrome G89.4 [place] [address] [address]70- [address] January, [place] [address] [place] [id number] [place] [address] 58778- 8909 January, Chronic pain syndrome G89.4 [place] [address] 74853- 7885 January, Left upper quadrant abdominal tenderness without rebound tenderness R10.812 ; Complex cyst of left ovary N83.292 and Complex cyst of right ovary N83.291 [place] [address] [address]- [address]138 Dec, Syncope, unspecified syncope type R55 and Mass of soft tissue of right upper extremity R22.31 [place] [address] [place] [id number] [place] [address] 12909- 8302 Dec, [place] [address] [place] [address] [id number] [place] [address] 58486- 2344 Dec, Moderate episode of recurrent major depressive disorder F33.1 ; Generalized anxiety disorder F41.1 and Grief F43.20 [place] [address] [place] [id number] [place] [address] 40862- 4407 Dec, Moderate episode of recurrent major depressive disorder F33.1 and Generalized anxiety disorder F41.1 [place] [address] [place] [address] [id number] [place] [address] 34744- 9583 Dec, [facility] [address], [place] [address] Dec, Chronic pain syndrome G89.4 [facility] [address] [id number] [place] [address] 73020- 6997 Dec, [facility] [address] [id number] [place] [address] 86731- 0208 Nov, Moderate episode of recurrent major depressive disorder F33.1 and Generalized anxiety disorder F41.1 [place] [address] [place] [address] [id number] [place] [address] 96264- 1468 Nov, [place] [address] [place] [address] [id number] [place] [address] 31853- 1474 Nov, Chronic pain syndrome G89.4 ; Hypersomnia G47.10 ; Memory changes R41.3 ; New daily persistent headache G44.52 ; Post-menopausal Z78.0 and History of gastric surgery Z98.890 [place] [address] [place] [id number] [place] [address] 50849- 5545 Nov, [place] [address] [place] [address] [id number] [place] [address] 75793- 2008 Nov, Chronic pain syndrome G89.4 [place] [address] [place] [address] 34470- 9512 Oct, Moderate episode of recurrent major depressive disorder F33.1 and Generalized anxiety disorder F41.1 [place] [address] [place] [address] 06031- 6890 Oct, Type 2 diabetes mellitus without complications E11.9 ; Essential hypertension I10 ; Restless legs G25.81 ; Chronic tension-type headache, intractable G44.221 ; Nasal congestion R09.81 ; 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 and Chronic pain syndrome G89.4 [place] [address] [place] [address] 87875- 5179 Oct, Moderate episode of recurrent major depressive disorder F33.1 [place] [address], [place] [address] 2546 Oct, [facility] [address] [place] [address] 28577 2546 Sep, Moderate episode of recurrent major depressive disorder F33.1 and Generalized anxiety disorder F41.1 [facility] [address], [place] [address] 2546 Sep, Moderate episode of recurrent major depressive disorder F33.1 ; Generalized anxiety disorder F41.1 and Grief F43.20 [facility] [address], [place] [address] 2546 Sep, Moderate episode of recurrent major depressive disorder F33.1 [facility] [address], [place] [address] 2546 Sep, [facility] [address] [id number] [place] [address] 81098- 5301 Aug, Chronic pain syndrome G89.4 [facility] [address], [place] [address] Aug, [facility] [address] [address] [id number] [place] [address] 91036 2546 Aug, Moderate episode of recurrent major depressive disorder F33.1 ; Generalized anxiety disorder F41.1 and Grief F43.20 [facility] [address], [place] [address] 2546 Aug, [facility] [address], [place] [address] Aug, [facility] [address], [place] [address] Jul, Chronic pain syndrome G89.4 ; Positive depression screening Z13.89 ; Essential hypertension I10 ; Restless legs G25.81 ; Severe single current episode of major depressive disorder, 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 ; Anxiety F41.9 ; Chronic tension-type headache, intractable G44.221 ; Type 2 diabetes mellitus without complications E11.9 ; group home 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.4 ; Right elbow pain M25.521 and Family history of pancreatic cancer Z80.0 [facility] [address] [place] [address] 86805- 6996 Jun, Chronic pain syndrome G89.4 [place] [id number] [place] [address] 89645- 0353 May, Chronic pain syndrome G89.4 and Anxiety F41.9 [place] [id number] [place] [address] 79405- 5415 Apr, Diabetes E11.9 ; Obesity (BMI 30-39.9) E66.9 ; Severe single current episode of major depressive disorder, 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 ; Restless legs G25.81 ; Essential hypertension I10 ; Chronic tension- type headache, intractable G44.221 ; Anxiety F41.9 ; Chronic pain syndrome G89.4 and Nausea R11.0 [facility] [address] [place] [address] 91456- 5846 Mar, Diabetes E11.9 ; Obesity (BMI 30-39.9) E66.9 ; Severe single current episode of major depressive disorder, 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 ; Restless legs G25.81 ; Essential hypertension I10 ; Chronic tension- type headache, intractable G44.221 ; Anxiety F41.9 and Chronic pain syndrome G89.4 [facility] [address] [place] [address] 53686 -6150 Feb, Diaphoresis R61 ; Diabetes E11.9 ; Elevated blood sugar R73.9 and Acute vomiting R11.10 [facility] [address] [place] [id number] Mar, Dental examination V72.2 IMMUNIZATIONS No Known [...]
--- OUTSIDE RECORDS SUMMARY | 2018-05-21 03:54 | XMS REPORT ---
Author Author JOSE NIGHAT [facility] Address [address] [place] [address] Care Team Providers Care Account Executive Software Sales Name Role Phone JOSE, NIGHAT Unavailable PROBLEMS Type Condition ICD9-CM Code [id number] Code Onset Dates Condition Status SNOMED Code Problem Essential hypertension I10 Active 51047773 Problem residential 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.4 Active 333966989 Problem Type 2 diabetes mellitus without complications E11.9 Active 153163819 Problem Memory changes R41.3 Active 076100117 Problem New daily persistent headache G44.52 Active 609979575462379 Problem Grief F43.20 Active 589744890 Problem Generalized anxiety disorder F41.1 Active 98188524 Problem Hypersomnia G47.10 Active 59470275 Problem Moderate episode of recurrent major depressive disorder F33.1 Active 568531702 Problem High serum estradiol R79.89 Active 349074931 Problem Unspecified ovarian cyst, left side N83.202 Active 51932562753732139 Problem Restless legs G25.81 Active 08092948 Problem Chronic pain syndrome G89.4 Active 239352070 Problem Unspecified ovarian cyst, right side N83.201 Active 45912967 Problem Chronic tension-type headache, intractable G44.221 Active 292712505 Problem History of vitamin D deficiency Z86.39 Active 408378818 Problem Obesity (BMI 30-39.9) E66.9 Active 947972024 ALLERGIES No Information ENCOUNTERS Encounter Location Date Diagnosis [facility] [address] [facility] [id number] [address] Mar, Restless legs G25.81 [facility] [address], [place] [address] Mar, [facility] [address] [place] [id number], [place] [address]- [address] Mar, Restless legs G25.81 ; Acute non-recurrent frontal sinusitis J01.10 and Type 2 diabetes mellitus without complications E11.9 [place] [address] [place] [id number] [place] [address] 78525- 4560 27 Feb, 2018 Type 2 diabetes mellitus without complications E11.9 [place] [address] [place] [id number] [place] [address] 96139- 9117 14 Feb, 2018 Chronic pain syndrome G89.4 [place] [address] [place] [id number] [place] [address] 28294- 8198 January, [place] [address] [place] [id number] [place] [address] 40487- 7172 January, Chronic pain syndrome G89.4 [place] [address] [place] [id number] [place] [address] 32398- 6638 January, Left upper quadrant abdominal tenderness without rebound tenderness R10.812 ; Complex cyst of left ovary N83.292 and Complex cyst of right ovary N83.291 [place] [address] [place] [id number] [place] [address] 28440- 7391 Dec, Syncope, unspecified syncope type R55 and Mass of soft tissue of right upper extremity R22.31 [place] [address] [place] [id number] [place] [address] 92067- 6442 Dec, [place] [address] [place] [id number] [place] [address] 98583- 1753 Dec, Moderate episode of recurrent major depressive disorder F33.1 ; Generalized anxiety disorder F41.1 and Grief F43.20 [place] [address] [place] [id number] [place] [address] 10787- 2037 Dec, Moderate episode of recurrent major depressive disorder F33.1 and Generalized anxiety disorder F41.1 [place] [address] [place] [id number] [place] [address] 39186- 2085 Dec, [place] [address] [place] [id number] [place] [address] 93368- 6264 Dec, Chronic pain syndrome G89.4 [facility] [address] [place] [id number] [place] [address] 24037- 7689 Dec, [facility] [address] [place] [id number] [place] [address] 60691- 7720 Nov, Moderate episode of recurrent major depressive disorder F33.1 and Generalized anxiety disorder F41.1 [facility] [address] [place] [id number] [place] [address] 40502- 0337 Nov, [facility] [address] [place] [id number] [place] [address] 51510- 1446 Nov, Chronic pain syndrome G89.4 ; Hypersomnia G47.10 ; Memory changes R41.3 ; New daily persistent headache G44.52 ; Post-menopausal Z78.0 and History of gastric surgery Z98.890 [place] [address] [place] [id number] [place] [address] 10095- 2541 Nov, [place] [address] [place] [id number] [place] [address] 59738- 5392 Nov, Chronic pain syndrome G89.4 [place] [address] [place] [id number] [place] [address] 53428- 5166 Oct, Moderate episode of recurrent major depressive disorder F33.1 and Generalized anxiety disorder F41.1 [place] [address] [place] [id number] [place] [address] 99965- 8025 Oct, Type 2 diabetes mellitus without complications E11.9 ; Essential hypertension I10 ; Restless legs G25.81 ; Chronic tension-type headache, intractable G44.221 ; Nasal congestion R09.81 ; residential 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.4 and Chronic pain syndrome G89.4 [place] [address] [place] [id number] [place] [address] 44360- 4264 Oct, Moderate episode of recurrent major depressive disorder F33.1 [place] [address] [place] [id number] [place] [address] 96821- 7585 Oct, [place] [address], [place] [address]- 9873 Sep, Moderate episode of recurrent major depressive disorder F33.1 and Generalized anxiety disorder F41.1 [place] [address], [place] [address]- 6592 Sep, Moderate episode of recurrent major depressive disorder F33.1 ; Generalized anxiety disorder F41.1 and Grief F43.20 [place] [address] [place] [id number] [place] [address] 59240- 2599 Sep, Moderate episode of recurrent major depressive disorder F33.1 [place] [address] [place] [id number] [place] [address] 81133- 7925 Sep, [place] [address] [place] [id number] [place] [address] 82829- 5954 Aug, Chronic pain syndrome G89.4 [place] [address] [place] [id number] [place] [address] 05737- 9468 Aug, [place] [address] [place] [id number] [place] [address] 03690- 8006 Aug, Moderate episode of recurrent major depressive disorder F33.1 ; Generalized anxiety disorder F41.1 and Grief F43.20 [place] [address], [place] [address]- 7025 Aug, [place] [address] [place] [address] 63891- 1604 Aug, [place] [address], [place] [address]- 3584 Jul, Chronic pain syndrome G89.4 ; Positive depression screening Z13.89 ; Essential hypertension I10 ; Restless legs G25.81 ; Severe single current episode of major depressive disorder, 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 ; Anxiety F41.9 ; Chronic tension-type headache, intractable G44.221 ; Type 2 diabetes mellitus without complications E11.9 ; 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 ; Right elbow pain M25.521 and Family history of pancreatic cancer Z80.0 [facility] [address] [place] [address] 79779- 0371 Jun, Chronic pain syndrome G89.4 [facility] [address] [place] [id number] [place] [address] 02441- 8979 May, Chronic pain syndrome G89.4 and Anxiety F41.9 [facility] [address] [place] [id number] [place] [address] 13232- 8712 Apr, Diabetes E11.9 ; Obesity (BMI 30-39.9) E66.9 ; Severe single current episode of major depressive disorder, 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 ; Restless legs G25.81 ; Essential hypertension I10 ; Chronic tension- type headache, intractable G44.221 ; Anxiety F41.9 ; Chronic pain syndrome G89.4 and Nausea R11.0 [place] [address] [place] [id number] [place] [address] 42392- 1507 Mar, Diabetes E11.9 ; Obesity (BMI 30-39.9) E66.9 ; Severe single current episode of major depressive disorder, 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 ; Restless legs G25.81 ; Essential hypertension I10 ; Chronic tension- type headache, intractable G44.221 ; Anxiety F41.9 and Chronic pain syndrome G89.4 [facility] [address] [place] [address] 98581 -2836 Feb, Diaphoresis R61 ; Diabetes E11.9 ; Elevated blood sugar R73.9 and Acute vomiting R11.10 [facility] [address] [place] [address] [id number] Mar, Dental examination V72.2 IMMUNIZATIONS No Known Immunizations SOCIAL HISTORY Never Assessed REASON FOR VISIT Controlled Med Refill PLAN OF CARE VITAL SIGNS MEDICATIONS Medication Instructions Dosage Frequency Start Date End Date Duration Status Xanax 0.5 MG Orally Once a day as needed for anxiety 1 tablet Dec, 07 days Active RESULTS No Results PROCEDURES No [...]
--- OUTSIDE RECORDS SUMMARY | 2018-05-21 03:54 | XMS REPORT ---
Author Author JOSE NIGHAT [facility] Address [address] [place] [address] Care Team Providers Care Counselor Education Professor Name Role Phone JOSE, NIGHAT Unavailable PROBLEMS Type Condition ICD9-CM Code [id number] Code Onset Dates Condition Status SNOMED Code Problem Essential hypertension I10 Active 80089465 Problem snf 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.4 Active 893668639 Problem Type 2 diabetes mellitus without complications E11.9 Active 474798181 Problem Memory changes R41.3 Active 122211217 Problem New daily persistent headache G44.52 Active 397015137867405 Problem Grief F43.20 Active 662413234 Problem Generalized anxiety disorder F41.1 Active 59988965 Problem Hypersomnia G47.10 Active 27998191 Problem Moderate episode of recurrent major depressive disorder F33.1 Active 643267391 Problem High serum estradiol R79.89 Active 590249065 Problem Unspecified ovarian cyst, left side N83.202 Active 64594514125893907 Problem Restless legs G25.81 Active 97894148 Problem Chronic pain syndrome G89.4 Active 508830802 Problem Unspecified ovarian cyst, right side N83.201 Active 83358419 Problem Chronic tension-type headache, intractable G44.221 Active 133144149 Problem History of vitamin D deficiency Z86.39 Active 455547588 Problem Obesity (BMI 30-39.9) E66.9 Active 234702768 ALLERGIES No Known Allergies ENCOUNTERS Encounter Location Date Diagnosis [facility] [id number] [address] Mar, Restless legs G25.81 [facility] [id number] [address] Mar, [facility] [id number] [address] Mar, Restless legs G25.81 ; Acute non-recurrent frontal sinusitis J01.10 and Type 2 diabetes mellitus without complications E11.9 [facility] [id number] [place] [address]3119- 8941 27 Feb, 2018 Type 2 diabetes mellitus without complications E11.9 [facility] [id number] [place] [address] 76716- 1180 14 Feb, 2018 Chronic pain syndrome G89.4 [facility] [facility] [id number] [place] [address] 97067- 4738 January, [facility] [facility] [id number] [place] [address] 86425- 6907 January, Chronic pain syndrome G89.4 [facility] [id number] [place] [address] 61070- 8445 January, Left upper quadrant abdominal tenderness without rebound tenderness R10.812 ; Complex cyst of left ovary N83.292 and Complex cyst of right ovary N83.291 [place] [facility] [id number] [place] [address]42- [address]197 Dec, Syncope, unspecified syncope type R55 and Mass of soft tissue of right upper extremity R22.31 [facility] [facility] [id number] [place] [address] 71499- 7596 Dec, [place] [facility] [id number] [place] [address] 87130- 2324 Dec, Moderate episode of recurrent major depressive disorder F33.1 ; Generalized anxiety disorder F41.1 and Grief F43.20 [facility] [id number] [place] [address] 83215- 9658 Dec, Moderate episode of recurrent major depressive disorder F33.1 and Generalized anxiety disorder F41.1 [facility] [id number] [place] [address] 45631- 4723 Dec, [facility] [id number] [place] [address] 73348- 5957 Dec, Chronic pain syndrome G89.4 [facility] [id number] [place] [address] 11032- 8490 Dec, [facility] [id number] [place] [address] 60505- 0676 Nov, Moderate episode of recurrent major depressive disorder F33.1 and Generalized anxiety disorder F41.1 [facility] [id number] [place] [address] 43264- 4190 Nov, [facility] [id number] [place] [address] 91016- 1676 Nov, Chronic pain syndrome G89.4 ; Hypersomnia G47.10 ; Memory changes R41.3 ; New daily persistent headache G44.52 ; Post-menopausal Z78.0 and History of gastric surgery Z98.890 [facility] [id number] [place] [address] 35597- 8611 Nov, [facility] [id number] [place] [address] 89592- 2438 Nov, Chronic pain syndrome G89.4 [facility] [id number] [place] [address] 24143- 7351 Oct, Moderate episode of recurrent major depressive disorder F33.1 and Generalized anxiety disorder F41.1 [facility] [id number] [place] [address] 68608- 2265 Oct, Type 2 diabetes mellitus without complications E11.9 ; Essential hypertension I10 ; Restless legs G25.81 ; Chronic tension-type headache, intractable G44.221 ; Nasal congestion R09.81 ; 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 and Chronic pain syndrome G89.4 [facility] [id number] [place] [address] 06556- 0022 Oct, Moderate episode of recurrent major depressive disorder F33.1 [facility] [id number] [place] [address] 74752- 8185 Oct, [place] [address], [place] [address] Sep, Moderate episode of recurrent major depressive disorder F33.1 and Generalized anxiety disorder F41.1 [facility] [address], [place] [address] Sep, Moderate episode of recurrent major depressive disorder F33.1 ; Generalized anxiety disorder F41.1 and Grief F43.20 [facility] [id number] [place] [address] 05662- 7509 Sep, Moderate episode of recurrent major depressive disorder F33.1 [facility] [id number] [place] [address] 13617- 4076 Sep, [facility] [facility] [id number] [place] [address] 30827- 5031 Aug, Chronic pain syndrome G89.4 [facility] [id number] [address] Aug, [facility] [id number] [place] [address] 57451- 8592 Aug, Moderate episode of recurrent major depressive disorder F33.1 ; Generalized anxiety disorder F41.1 and Grief F43.20 [facility] [address], [place] [address] Aug, [place] [address] [address] Aug, [place] [address] [address] 8[address] Jul, Chronic pain syndrome G89.4 ; Positive depression screening Z13.89 ; Essential hypertension I10 ; Restless legs G25.81 ; Severe single current episode of major depressive disorder, 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 ; Anxiety F41.9 ; Chronic tension-type headache, intractable G44.221 ; Type 2 diabetes mellitus without complications E11.9 ; 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 ; Right elbow pain M25.521 and Family history of pancreatic cancer Z80.0 [facility] [address] [place] [address] 74096- 3789 Jun, Chronic pain syndrome G89.4 [facility] [id number] [place] [address] 49644- 3744 May, Chronic pain syndrome G89.4 and Anxiety F41.9 [facility] [id number] [place] [address] 85293- 2341 Apr, Diabetes E11.9 ; Obesity (BMI 30-39.9) E66.9 ; Severe single current episode of major depressive disorder, 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 ; Restless legs G25.81 ; Essential hypertension I10 ; Chronic tension- type headache, intractable G44.221 ; Anxiety F41.9 ; Chronic pain syndrome G89.4 and Nausea R11.0 [facility] [facility] [id number] [place] [address] 17332- 3459 Mar, Diabetes E11.9 ; Obesity (BMI 30-39.9) E66.9 ; Severe single current episode of major depressive disorder, 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 ; Restless legs G25.81 ; Essential hypertension I10 ; Chronic tension- type headache, intractable G44.221 ; Anxiety F41.9 and Chronic pain syndrome G89.4 [facility] [id number] [place] [address] 97919 -4164 Feb, Diaphoresis R61 ; Diabetes E11.9 ; Elevated blood sugar R73.9 and Acute vomiting R11.10 [facility] [id number] [place] [address] [id number] Mar, Dental examination V72.2 IMMUNIZATIONS No Known Immunizations SOCIAL HISTORY Never Assessed REASON FOR VISIT f/u PLAN OF CARE Activity Details Follow Up 4 Weeks Reason: f/u VITAL SIGNS Height 65 in 2018-01-03 Weight 227.3 lbs 2018-01-03 Heart Rate 92 bpm 2018-01-03 Respiratory Rate 20 2018-01-03 BMI 37.82 kg/m2 2018-01-03 Blood pressure systolic 128 mmHg 2018-01-03 Blood pressure diastolic 76 mmHg 2018-01-03 MEDICATIONS Medication Instructions Dosage Frequency Start Date End Date Duration Status Januvia 100 MG TAKE ONE TABLET BY MOUTH ONCE DAILY 30 Active Lisinopril 10 mg Orally Once a day TAKE ONE TABLET BY MOUTH ONCE DAILY 24h 30 Active Cymbalta 30 MG Orally 4 times a day 1 capsule 6h Dec, 30 day(s ) Active Lyrica 50 mg Orally Twice a day 1 capsule by mouth daily x3 days then BID Daily 12h Sep, 28 days Active Vitamin D (Ergocalciferol) 58562 UNIT Orally weekly x 12 weeks 1 capsule Active Cyclobenzaprine HCl 10 mg Orally 2 times a day 1 tablet as needed 12h 28 Nov, 2017 20 Feb, 2018 28 days Active Metformin HCl 1000 MG TAKE ONE TABLET BY MOUTH TWICE DAILY WITH MEALS 30 Active Topamax 25 MG Orally Once a day 2 tablets in the evening 24h 30 days Active Ropinirole HCl 0.5 MG Orally Once a day 1-2 tablet 1 to 3 hours before bedtime 24h Active Ondansetron HCl 4 MG Orally 3 times a day TAKE ONE TABLET 8h 10 Active HydrOXYzine HCl 50 mg Orally once a day at bedtime as needed 1 tablet Dec, 30 days Active RESULTS No Results PROCEDURES [...]
--- OUTSIDE RECORDS SUMMARY | 2018-05-21 03:54 | XMS REPORT ---
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 Active 603812239 Problem Type 2 diabetes mellitus without complications E11.9 Active 582540501 Problem Memory changes R41.3 Active 001559211 Problem New daily persistent headache G44.52 Active 484198835664306 Problem Grief F43.20 Active 073433135 Problem Generalized anxiety disorder F41.1 Active 54494651 Problem Hypersomnia G47.10 Active 02042216 Problem Moderate episode of recurrent major depressive disorder F33.1 Active 489700730 Problem High serum estradiol R79.89 Active 325279571 Problem Unspecified ovarian cyst, left side N83.202 Active 37896668447414581 Problem Restless legs G25.81 Active 91688889 Problem Chronic pain syndrome G89.4 Active 410624376 Problem Unspecified ovarian cyst, right side N83.201 Active 10824220 Problem Chronic tension-type headache, intractable G44.221 Active 156436532 Problem History of vitamin D deficiency Z86.39 Active 733456134 Problem Obesity (BMI 30-39.9) E66.9 Active 684145088 ALLERGIES No Information ENCOUNTERS Encounter Location Date Diagnosis [facility] [address] [facility] [id number] [address] Mar, Restless legs G25.81 [facility] [address], [place] [address] Mar, [facility] [id number] [address] Mar, Restless legs G25.81 ; Acute non-recurrent frontal sinusitis J01.10 and Type 2 diabetes mellitus without complications E11.9 [facility] [id number] [place] [address] 95173- 3469 27 Feb, 2018 Type 2 diabetes mellitus without complications E11.9 [place] [id number] [place] [address] 58129- 1768 14 Feb, 2018 Chronic pain syndrome G89.4 [place] [address] [address]- 1491 January, [facility] [facility] [id number] [place] [address] 47383- 8837 January, Chronic pain syndrome G89.4 [facility] [id number] [place] [address] 69300- 5399 January, Left upper quadrant abdominal tenderness without rebound tenderness R10.812 ; Complex cyst of left ovary N83.292 and Complex cyst of right ovary N83.291 [facility] [id number] [place] [address] 40665- 1170 Dec, Syncope, unspecified syncope type R55 and Mass of soft tissue of right upper extremity R22.31 [facility] [id number] [place] [address] 06120- 1545 Dec, [facility] [id number] [place] [address] 76561- 4286 Dec, Moderate episode of recurrent major depressive disorder F33.1 ; Generalized anxiety disorder F41.1 and Grief F43.20 [facility] [id number] [place] [address] 25913- 5537 Dec, Moderate episode of recurrent major depressive disorder F33.1 and Generalized anxiety disorder F41.1 [facility] [id number] [place] [address] 46616- 1136 Dec, [place] [id number] [place] [address] 95321- 1310 Dec, Chronic pain syndrome G89.4 [facility] [address], [place] [address]- [address] Dec, [facility] [id number] [place] [address] 55919- 1705 Nov, Moderate episode of recurrent major depressive disorder F33.1 and Generalized anxiety disorder F41.1 [facility] [id number] [place] [address] 92718- 1440 Nov, [facility] [id number] [place] [address] 09506- 2385 Nov, Chronic pain syndrome G89.4 ; Hypersomnia G47.10 ; Memory changes R41.3 ; New daily persistent headache G44.52 ; Post-menopausal Z78.0 and History of gastric surgery Z98.890 [facility] [id number] [place] [address] 99291- 6244 Nov, [facility] [facility] [id number] [place] [address] 96667- 7731 Nov, Chronic pain syndrome G89.4 [facility] [id number] [place] [address] 33588- 3922 Oct, Moderate episode of recurrent major depressive disorder F33.1 and Generalized anxiety disorder F41.1 [facility] [id number] [place] [address] 68250- 2482 Oct, Type 2 diabetes mellitus without complications E11.9 ; Essential hypertension I10 ; Restless legs G25.81 ; Chronic tension-type headache, intractable G44.221 ; Nasal congestion R09.81 ; 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1 ; Generalized anxiety disorder F41.1 and Grief F43.20 [place] [address], [place] [address]- 1106 Sep, Moderate episode of recurrent major depressive disorder F33.1 [facility] [id number] [place] [address] 11713- 9278 Sep, [place] [address] [place] [address] 98226- 8806 Aug, Chronic pain syndrome G89.4 [facility] [facility] [address] [address]- 1825 Aug, [place] [address], [place] [address]- 9503 Aug, Moderate episode of recurrent major depressive disorder F33.1 ; Generalized anxiety disorder F41.1 and Grief F43.20 [place] [address], [place] [address]- 1927 Aug, [place] [address], [place] [address]- 7385 Aug, [place] [address], [place] [address]- 0075 Jul, Chronic pain syndrome G89.4 ; Positive depression screening Z13.89 ; Essential hypertension I10 ; Restless legs G25.81 ; Severe single current episode of major depressive disorder, 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 ; Anxiety F41.9 ; Chronic tension-type headache, intractable G44.221 ; Type 2 diabetes mellitus without complications E11.9 ; 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 ; Right elbow pain M25.521 and Family history of pancreatic cancer Z80.0 [facility] [address], [place] [address]- 9335 Jun, Chronic pain syndrome G89.4 [facility] [address] [place] [address] 17792- 7399 May, Chronic pain syndrome G89.4 and Anxiety F41.9 [facility] [id number] [place] [address] 91123- 4045 Apr, Diabetes E11.9 ; Obesity (BMI 30-39.9) E66.9 ; Severe single current episode of major depressive disorder, 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 ; Restless legs G25.81 ; Essential hypertension I10 ; Chronic tension- type headache, intractable G44.221 ; Anxiety F41.9 ; Chronic pain syndrome G89.4 and Nausea R11.0 [facility] [address] [place] [address] 76134- 0187 Mar, Diabetes E11.9 ; Obesity (BMI 30-39.9) E66.9 ; Severe single current episode of major depressive disorder, 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 ; Restless legs G25.81 ; Essential hypertension I10 ; Chronic tension- type headache, intractable G44.221 ; Anxiety F41.9 and Chronic pain syndrome G89.4 [facility] [address] [place] [address] 94112 -1898 Feb, Diaphoresis R61 ; Diabetes E11.9 ; Elevated blood sugar R73.9 and Acute vomiting R11.10 [facility] [id number] [place] [address] [id number] Mar, Dental examination V72.2 IMMUNIZATIONS No Known Immunizations SOCIAL HISTORY Never Assessed REASON FOR VISIT Follow-up Depression PLAN OF CARE Activity Details Follow Up Next available Reason: Follow-up VITAL SIGNS MEDICATIONS Unknown Medications RESULTS No Results PROCEDURES Procedure Date Ordered Result Body Site Psychotherapy, patient &/family, 30 minutes, established patient December 29, 2017 INSTRUCTIONS MEDICATIONS ADMINISTERED No Known Medications [...]
--- OUTSIDE RECORDS SUMMARY | 2018-05-21 03:54 | XMS REPORT ---
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 Active 284753836 Problem Type 2 diabetes mellitus without complications E11.9 Active 504595780 Problem Memory changes R41.3 Active 274629261 Problem New daily persistent headache G44.52 Active 796649637634719 Problem Grief F43.20 Active 272210701 Problem Generalized anxiety disorder F41.1 Active 23491906 Problem Hypersomnia G47.10 Active 47604162 Problem Moderate episode of recurrent major depressive disorder F33.1 Active 908327628 Problem High serum estradiol R79.89 Active 594697867 Problem Unspecified ovarian cyst, left side N83.202 Active 49536649360617089 Problem Restless legs G25.81 Active 51749357 Problem Chronic pain syndrome G89.4 Active 260159122 Problem Unspecified ovarian cyst, right side N83.201 Active 20754660 Problem Chronic tension-type headache, intractable G44.221 Active 297933492 Problem History of vitamin D deficiency Z86.39 Active 956914826 Problem Obesity (BMI 30-39.9) E66.9 Active 755668610 ALLERGIES No Information ENCOUNTERS Encounter Location Date Diagnosis [facility] [address] [facility] [id number] [address] Mar, Restless legs G25.81 [facility] [address], [place] [address] Mar, [facility] [id number] [address] Mar, Restless legs G25.81 ; Acute non-recurrent frontal sinusitis J01.10 and Type 2 diabetes mellitus without complications E11.9 [place] [id number] [place] [address]75- [address] 27 Feb, 2018 Type 2 diabetes mellitus without complications E11.9 [place] [id number] [place] [address] 25877- 8780 14 Feb, 2018 Chronic pain syndrome G89.4 [place] [address] [address] January, [place] [id number] [place] [address] 75022- 5649 January, Chronic pain syndrome G89.4 [place] [id number] [place] [address]21- 2006 January, Left upper quadrant abdominal tenderness without rebound tenderness R10.812 ; Complex cyst of left ovary N83.292 and Complex cyst of right ovary N83.291 [place] [id number] [place] [address] 15217- 1393 Dec, Syncope, unspecified syncope type R55 and Mass of soft tissue of right upper extremity R22.31 [place] [id number] [place] [address] 01751- 4836 Dec, [place] [id number] [place] [address] 36081- 6593 Dec, Moderate episode of recurrent major depressive disorder F33.1 ; Generalized anxiety disorder F41.1 and Grief F43.20 [place] [id number] [place] [address] 68033- 4987 Dec, Moderate episode of recurrent major depressive disorder F33.1 and Generalized anxiety disorder F41.1 [place] [id number] [place] [address] 69045- 7508 Dec, [place] [id number] [place] [address] 04937- 4537 Dec, Chronic pain syndrome G89.4 [facility] [address], [place] [address] Dec, [facility] [id number] [place] [address] 85565- 7588 Nov, Moderate episode of recurrent major depressive disorder F33.1 and Generalized anxiety disorder F41.1 [facility] [id number] [place] [address] 72930- 4810 Nov, [facility] [id number] [place] [address] 13498- 0302 Nov, Chronic pain syndrome G89.4 ; Hypersomnia G47.10 ; Memory changes R41.3 ; New daily persistent headache G44.52 ; Post-menopausal Z78.0 and History of gastric surgery Z98.890 [place] [id number] [place] [address] 89456- 3372 Nov, [place] [id number] [place] [address] 17378- 8825 Nov, Chronic pain syndrome G89.4 [place] [id number] [place] [address] 17194- 3225 Oct, Moderate episode of recurrent major depressive disorder F33.1 and Generalized anxiety disorder F41.1 [place] [id number] [place] [address] 52818- 6372 Oct, Type 2 diabetes mellitus without complications E11.9 ; Essential hypertension I10 ; Restless legs G25.81 ; Chronic tension-type headache, intractable G44.221 ; Nasal congestion R09.81 ; 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 and Chronic pain syndrome G89.4 [place] [id number] [place] [address] 62603- 6604 Oct, Moderate episode of recurrent major depressive disorder F33.1 [place] [id number] [place] [address] 41071- 8277 Oct, [place] [address], [place] [address] Sep, Moderate episode of recurrent major depressive disorder F33.1 and Generalized anxiety disorder F41.1 [place] [address], [place] [address] Sep, Moderate episode of recurrent major depressive disorder F33.1 ; Generalized anxiety disorder F41.1 and Grief F43.20 [place] [address], [place] [address] Sep, Moderate episode of recurrent major depressive disorder F33.1 [place] [id number] [place] [address] 91057- 6230 Sep, [place] [address] [place] [address] 82883- 0119 Aug, Chronic pain syndrome G89.4 [place] [id number] [address] Aug, [place] [address], [place] [address] Aug, Moderate episode of recurrent major depressive disorder F33.1 ; Generalized anxiety disorder F41.1 and Grief F43.20 [place] [address], [place] [address] Aug, [place] [address], [place] [address] Aug, [place] [address], [place] [address] Jul, Chronic pain syndrome G89.4 ; Positive depression screening Z13.89 ; Essential hypertension I10 ; Restless legs G25.81 ; Severe single current episode of major depressive disorder, 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 ; Anxiety F41.9 ; Chronic tension-type headache, intractable G44.221 ; Type 2 diabetes mellitus without complications E11.9 ; 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 ; Right elbow pain M25.521 and Family history of pancreatic cancer Z80.0 [facility] [address], [place] [address] Jun, Chronic pain syndrome G89.4 [facility] [address] [place] [address] 70014- 7015 May, Chronic pain syndrome G89.4 and Anxiety F41.9 [facility] [id number] [place] [address] 39692- 7415 Apr, Diabetes E11.9 ; Obesity (BMI 30-39.9) E66.9 ; Severe single current episode of major depressive disorder, 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 ; Restless legs G25.81 ; Essential hypertension I10 ; Chronic tension- type headache, intractable G44.221 ; Anxiety F41.9 ; Chronic pain syndrome G89.4 and Nausea R11.0 [place] [address] [place] [address] 07548- 1057 Mar, Diabetes E11.9 ; Obesity (BMI 30-39.9) E66.9 ; Severe single current episode of major depressive disorder, 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 ; Restless legs G25.81 ; Essential hypertension I10 ; Chronic tension- type headache, intractable G44.221 ; Anxiety F41.9 and Chronic pain syndrome G89.4 [facility] [id number] [place] [address] Feb, Diaphoresis R61 ; Diabetes E11.9 ; Elevated blood sugar R73.9 and Acute vomiting R11.10 [facility] [id number] [place] [id number] Mar, Dental examination V72.2 IMMUNIZATIONS No Known Immunizations SOCIAL HISTORY Never Assessed REASON FOR VISIT Sent over from [facility] PLAN OF CARE VITAL SIGNS MEDICATIONS Unknown [...]
--- OUTSIDE RECORDS SUMMARY | 2018-05-21 03:54 | XMS REPORT ---
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 Active 676071836 Problem Type 2 diabetes mellitus without complications E11.9 Active 905844862 Problem Memory changes R41.3 Active 441729850 Problem New daily persistent headache G44.52 Active 013680968041281 Problem Grief F43.20 Active 504419280 Problem Generalized anxiety disorder F41.1 Active 57503653 Problem Hypersomnia G47.10 Active 77136590 Problem Moderate episode of recurrent major depressive disorder F33.1 Active 295991613 Problem High serum estradiol R79.89 Active 333540138 Problem Unspecified ovarian cyst, left side N83.202 Active 76995973249053331 Problem Restless legs G25.81 Active 58027849 Problem Chronic pain syndrome G89.4 Active 967672795 Problem Unspecified ovarian cyst, right side N83.201 Active 85657656 Problem Chronic tension-type headache, intractable G44.221 Active 511601382 Problem History of vitamin D deficiency Z86.39 Active 574020608 Problem Obesity (BMI 30-39.9) E66.9 Active 539831490 ALLERGIES No Information ENCOUNTERS Encounter Location Date Diagnosis [facility] [id number] [address] Mar, Restless legs G25.81 [facility] [id number] [address] Mar, [facility] [id number] [address] Mar, Restless legs G25.81 ; Acute non-recurrent frontal sinusitis J01.10 and Type 2 diabetes mellitus without complications E11.9 [place] [id number] [place] [address] 25843- 0948 27 Feb, 2018 Type 2 diabetes mellitus without complications E11.9 [place] [id number] [place] [address] 38839- 0525 14 Feb, 2018 Chronic pain syndrome G89.4 [place] [id number] [place] [address] 24674- 2105 January, [place] [id number] [place] [address] 29279- 2313 January, Chronic pain syndrome G89.4 [place] [id number] [place] [address] 99079- 1921 January, Left upper quadrant abdominal tenderness without rebound tenderness R10.812 ; Complex cyst of left ovary N83.292 and Complex cyst of right ovary N83.291 [place] [id number] [place] [address] 63057- 6011 Dec, Syncope, unspecified syncope type R55 and Mass of soft tissue of right upper extremity R22.31 [place] [id number] [place] [address] 50898- 4945 Dec, [place] [id number] [place] [address] 64917- 9771 Dec, Moderate episode of recurrent major depressive disorder F33.1 ; Generalized anxiety disorder F41.1 and Grief F43.20 [place] [id number] [place] [address] 81585- 7686 Dec, Moderate episode of recurrent major depressive disorder F33.1 and Generalized anxiety disorder F41.1 [place] [id number] [place] [address] 49359- 0162 Dec, [place] [id number] [place] [address] 01168- 5629 Dec, Chronic pain syndrome G89.4 [facility] [id number] [place] [address] 64143- 1889 Dec, [facility] [id number] [place] [address] 20843- 1520 Nov, Moderate episode of recurrent major depressive disorder F33.1 and Generalized anxiety disorder F41.1 [facility] [id number] [place] [address] 19901- 3379 Nov, [facility] [id number] [place] [address] 61298- 7762 Nov, Chronic pain syndrome G89.4 ; Hypersomnia G47.10 ; Memory changes R41.3 ; New daily persistent headache G44.52 ; Post-menopausal Z78.0 and History of gastric surgery Z98.890 [place] [id number] [place] [address] 42088- 7180 Nov, [facility] [id number] [place] [address] 73103- 8990 Nov, Chronic pain syndrome G89.4 [place] [id number] [place] [address] 92931- 8428 Oct, Moderate episode of recurrent major depressive disorder F33.1 and Generalized anxiety disorder F41.1 [place] [id number] [place] [address] 94322- 1242 Oct, Type 2 diabetes mellitus without complications E11.9 ; Essential hypertension I10 ; Restless legs G25.81 ; Chronic tension-type headache, intractable G44.221 ; Nasal congestion R09.81 ; 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.4 and Chronic pain syndrome G89.4 [facility] [id number] [place] [address] 08410- 4757 Oct, Moderate episode of recurrent major depressive disorder F33.1 [facility] [id number] [place] [address] 76613- 5724 Oct, [place] [address] [address] Sep, Moderate episode of recurrent major depressive disorder F33.1 and Generalized anxiety disorder F41.1 [facility] [address], [place] [address]- 0977 Sep, Moderate episode of recurrent major depressive disorder F33.1 ; Generalized anxiety disorder F41.1 and Grief F43.20 [place] [id number] [place] [address] 13243- 3636 Sep, Moderate episode of recurrent major depressive disorder F33.1 [place] [id number] [place] [address] 75643- 0676 Sep, [place] [id number] [place] [address] 06397- 9876 Aug, Chronic pain syndrome G89.4 [place] [id number] [address]- 5847 Aug, [place] [id number] [place] [address] 13835- 0144 Aug, Moderate episode of recurrent major depressive disorder F33.1 ; Generalized anxiety disorder F41.1 and Grief F43.20 [place] [address] [address]- 3763 Aug, [place] [address], [place] [address]- 8[address] Aug, [place] [address], [place] [address]- 0754 Jul, Chronic pain syndrome G89.4 ; Positive depression screening Z13.89 ; Essential hypertension I10 ; Restless legs G25.81 ; Severe single current episode of major depressive disorder, 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 ; Anxiety F41.9 ; Chronic tension-type headache, intractable G44.221 ; Type 2 diabetes mellitus without complications E11.9 ; detention 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.4 ; Right elbow pain M25.521 and Family history of pancreatic cancer Z80.0 [facility] [address] [place] [address] 48182- 1890 Jun, Chronic pain syndrome G89.4 [facility] [id number] [place] [address] 41020- 1989 May, Chronic pain syndrome G89.4 and Anxiety F41.9 [facility] [id number] [place] [address] 50690- 6324 Apr, Diabetes E11.9 ; Obesity (BMI 30-39.9) E66.9 ; Severe single current episode of major depressive disorder, 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 ; Restless legs G25.81 ; Essential hypertension I10 ; Chronic tension- type headache, intractable G44.221 ; Anxiety F41.9 ; Chronic pain syndrome G89.4 and Nausea R11.0 [place] [id number] [place] [address] 22295- 2157 Mar, Diabetes E11.9 ; Obesity (BMI 30-39.9) E66.9 ; Severe single current episode of major depressive disorder, 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 ; Restless legs G25.81 ; Essential hypertension I10 ; Chronic tension- type headache, intractable G44.221 ; Anxiety F41.9 and Chronic pain syndrome G89.4 [facility] [id number] [place] [address] 52890 -1291 Feb, Diaphoresis R61 ; Diabetes E11.9 ; Elevated blood sugar R73.9 and Acute vomiting R11.10 [facility] [id number] [place] [address] [phone] Mar, Dental examination V72.2 IMMUNIZATIONS No Known Immunizations SOCIAL HISTORY Never Assessed REASON FOR VISIT Controlled Med Refill PLAN OF CARE VITAL SIGNS MEDICATIONS Medication Instructions Dosage Frequency Start Date End Date Duration Status Lyrica 50 mg Orally Twice a day 1 capsule by mouth daily x3 days then BID Daily 12h Sep, 28 days Active RESULTS No Results PROCEDURES No [...]
--- OUTSIDE RECORDS SUMMARY | 2018-05-21 03:55 | XMS REPORT ---
Author Author JOSE NIGHAT [facility] Address [address] [place] [address] Care Team Providers Care Tarring Machine Operator Name Role Phone JOSE, NIGHAT Unavailable PROBLEMS Type Condition ICD9-CM Code HWB17-EO Code Onset Dates Condition Status SNOMED Code Problem Essential hypertension I10 Active 43012736 Problem intermediate 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.4 Active 199192393 Problem Type 2 diabetes mellitus without complications E11.9 Active 455093824 Problem Memory changes R41.3 Active 665114212 Problem New daily persistent headache G44.52 Active 036680554464061 Problem Grief F43.20 Active 810959779 Problem Generalized anxiety disorder F41.1 Active 75738051 Problem Hypersomnia G47.10 Active 56416227 Problem Moderate episode of recurrent major depressive disorder F33.1 Active 930638534 Problem High serum estradiol R79.89 Active 151779604 Problem Unspecified ovarian cyst, left side N83.202 Active 84147418145569560 Problem Restless legs G25.81 Active 87928722 Problem Chronic pain syndrome G89.4 Active 911659992 Problem Unspecified ovarian cyst, right side N83.201 Active 70630593 Problem Chronic tension-type headache, intractable G44.221 Active 962101350 Problem History of vitamin D deficiency Z86.39 Active 476874447 Problem Obesity (BMI 30-39.9) E66.9 Active 270770920 ALLERGIES No Information ENCOUNTERS Encounter Location Date Diagnosis [facility] [address] [facility] [id number] [address] Mar, Restless legs G25.81 [facility] [address] [address] Mar, [facility] [id number] [address] Mar, Restless legs G25.81 ; Acute non-recurrent frontal sinusitis J01.10 and Type 2 diabetes mellitus without complications E11.9 [facility] [id number] [place] [address] 36590- 7965 27 Feb, 2018 Type 2 diabetes mellitus without complications E11.9 [facility] [id number] [place] [address] 27359- 2379 14 Feb, 2018 Chronic pain syndrome G89.4 [facility] [id number] [place] [address] 33430- 7302 January, [facility] [id number] [place] [address] 14589- 7092 January, Chronic pain syndrome G89.4 [facility] [id number] [place] [address] 01516- 8336 January, Left upper quadrant abdominal tenderness without rebound tenderness R10.812 ; Complex cyst of left ovary N83.292 and Complex cyst of right ovary N83.291 [place] [id number] [place] [address] 54310- 3018 Dec, Syncope, unspecified syncope type R55 and Mass of soft tissue of right upper extremity R22.31 [place] [id number] [place] [address] 24367- 2164 Dec, [facility] [place] [id number] [place] [address] 37405- 2444 Dec, Moderate episode of recurrent major depressive disorder F33.1 ; Generalized anxiety disorder F41.1 and Grief F43.20 [facility] [place] [id number] [place] [address] 38459- 4011 Dec, Moderate episode of recurrent major depressive disorder F33.1 and Generalized anxiety disorder F41.1 [facility] [id number] [place] [address] 10684- 5073 Dec, [facility] [id number] [place] [address] 78690- 1596 Dec, Chronic pain syndrome G89.4 [facility] [id number] [place] [address] 19824- 4245 Dec, [facility] [id number] [place] [address] 79318- 4038 Nov, Moderate episode of recurrent major depressive disorder F33.1 and Generalized anxiety disorder F41.1 [facility] [id number] [place] [address] 86466- 5987 Nov, [facility] [id number] [place] [address] 78010- 0974 Nov, Chronic pain syndrome G89.4 ; Hypersomnia G47.10 ; Memory changes R41.3 ; New daily persistent headache G44.52 ; Post-menopausal Z78.0 and History of gastric surgery Z98.890 [facility] [place] [id number] [place] [address] 01940- 9578 Nov, [facility] [id number] [place] [address] 89333- 9788 Nov, Chronic pain syndrome G89.4 [facility] [id number] [place] [address] 92481- 4829 Oct, Moderate episode of recurrent major depressive disorder F33.1 and Generalized anxiety disorder F41.1 [facility] [id number] [place] [address] 72869- 7138 Oct, Type 2 diabetes mellitus without complications E11.9 ; Essential hypertension I10 ; Restless legs G25.81 ; Chronic tension-type headache, intractable G44.221 ; Nasal congestion R09.81 ; intermediate 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.4 and Chronic pain syndrome G89.4 [place] [id number] [place] [address] 74031- 4362 Oct, Moderate episode of recurrent major depressive disorder F33.1 [facility] [id number] [place] [address] 51758- 4551 Oct, [facility] [address] [address] Sep, Moderate episode of recurrent major depressive disorder F33.1 and Generalized anxiety disorder F41.1 [facility] [address] [address] 7[address] Sep, Moderate episode of recurrent major depressive disorder F33.1 ; Generalized anxiety disorder F41.1 and Grief F43.20 [facility] [place] [id number] [place] [address] 79469- 9094 Sep, Moderate episode of recurrent major depressive disorder F33.1 [facility] [id number] [place] [address] 26427- 9139 Sep, [facility] [place] [id number] [place] [address] 71427- 5842 Aug, Chronic pain syndrome G89.4 [facility] [id number] [place] [address] 31928- 3140 Aug, [facility] [place] [id number] [place] [address] 86583- 5167 Aug, Moderate episode of recurrent major depressive disorder F33.1 ; Generalized anxiety disorder F41.1 and Grief F43.20 [facility] [address] [address] 4[address] Aug, [place] [address] [place] [address] 24377- 1129 Aug, [place] [address] [address] Jul, Chronic pain syndrome G89.4 ; Positive depression screening Z13.89 ; Essential hypertension I10 ; Restless legs G25.81 ; Severe single current episode of major depressive disorder, 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 ; Anxiety F41.9 ; Chronic tension-type headache, intractable G44.221 ; Type 2 diabetes mellitus without complications E11.9 ; 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 ; Right elbow pain M25.521 and Family history of pancreatic cancer Z80.0 [facility] [address] [place] [address] 27865- 4114 Jun, Chronic pain syndrome G89.4 [facility] [address] [place] [address] 80168- 9499 May, Chronic pain syndrome G89.4 and Anxiety F41.9 [facility] [id number] [place] [address] 14407- 7441 Apr, Diabetes E11.9 ; Obesity (BMI 30-39.9) E66.9 ; Severe single current episode of major depressive disorder, 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 ; Restless legs G25.81 ; Essential hypertension I10 ; Chronic tension- type headache, intractable G44.221 ; Anxiety F41.9 ; Chronic pain syndrome G89.4 and Nausea R11.0 [place] [id number] [place] [address] 00586- 0586 Mar, Diabetes E11.9 ; Obesity (BMI 30-39.9) E66.9 ; Severe single current episode of major depressive disorder, 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 ; Restless legs G25.81 ; Essential hypertension I10 ; Chronic tension- type headache, intractable G44.221 ; Anxiety F41.9 and Chronic pain syndrome G89.4 [facility] [address] [place] [address] 83657 -5786 Feb, Diaphoresis R61 ; Diabetes E11.9 ; Elevated blood sugar R73.9 and Acute vomiting R11.10 [facility] [address] [place] [id number] Mar, Dental examination V72.2 IMMUNIZATIONS No Known Immunizations SOCIAL HISTORY Never Assessed REASON FOR VISIT controlled medication PLAN OF CARE VITAL SIGNS MEDICATIONS Unknown [...]
--- OUTSIDE RECORDS SUMMARY | 2018-05-21 03:55 | XMS REPORT ---
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 Active 317749726 Problem Type 2 diabetes mellitus without complications E11.9 Active 034050638 Problem Memory changes R41.3 Active 330966839 Problem New daily persistent headache G44.52 Active 861299760956442 Problem Grief F43.20 Active 878858891 Problem Generalized anxiety disorder F41.1 Active 29648512 Problem Hypersomnia G47.10 Active 41991781 Problem Moderate episode of recurrent major depressive disorder F33.1 Active 168320138 Problem High serum estradiol R79.89 Active 373232957 Problem Unspecified ovarian cyst, left side N83.202 Active 66652957020521776 Problem Restless legs G25.81 Active 55248652 Problem Chronic pain syndrome G89.4 Active 620124681 Problem Unspecified ovarian cyst, right side N83.201 Active 31889650 Problem Chronic tension-type headache, intractable G44.221 Active 338915859 Problem History of vitamin D deficiency Z86.39 Active 568686585 Problem Obesity (BMI 30-39.9) E66.9 Active 597923696 ALLERGIES No Known Allergies ENCOUNTERS Encounter Location Date Diagnosis [facility] [address] [facility] [id number] [address] Mar, [facility] [address], [place] [address]- 14[address] Mar, [facility] [id number], [place] [address] 4854 Mar, Restless legs G25.81 ; Acute non-recurrent frontal sinusitis J01.10 and Type 2 diabetes mellitus without complications E11.9 [place] [id number] [place] [address] 96724- 6469 27 Feb, 2018 Type 2 diabetes mellitus without complications E11.9 [place] [id number] [place] [address] 58642- 3066 14 Feb, 2018 Chronic pain syndrome G89.4 [place] [address] 45128- 6130 January, [place] [id number] [place] [address] 45213- 6623 January, Chronic pain syndrome G89.4 [facility] [id number] [place] [address] 86074- 6891 January, Left upper quadrant abdominal tenderness without rebound tenderness R10.812 ; Complex cyst of left ovary N83.292 and Complex cyst of right ovary N83.291 [facility] [id number] [place] [address] 55447- 4577 Dec, Syncope, unspecified syncope type R55 and Mass of soft tissue of right upper extremity R22.31 [place] [id number] [place] [address] 81470- 0512 Dec, [place] [id number] [place] [address] 63852- 7713 Dec, Moderate episode of recurrent major depressive disorder F33.1 ; Generalized anxiety disorder F41.1 and Grief F43.20 [place] [id number] [place] [address] 61623- 7008 Dec, Moderate episode of recurrent major depressive disorder F33.1 and Generalized anxiety disorder F41.1 [place] [id number] [place] [address] 76662- 6291 Dec, [place] [id number] [place] [address] 45115- 1082 Dec, Chronic pain syndrome G89.4 [facility] [address], [place] [address]- 3725 Dec, [facility] [id number] [place] [address] 31682- 4329 Nov, Moderate episode of recurrent major depressive disorder F33.1 and Generalized anxiety disorder F41.1 [facility] [id number] [place] [address] 47026- 3698 Nov, [facility] [id number] [place] [address] 72225- 1268 Nov, Chronic pain syndrome G89.4 ; Hypersomnia G47.10 ; Memory changes R41.3 ; New daily persistent headache G44.52 ; Post-menopausal Z78.0 and History of gastric surgery Z98.890 [place] [id number] [place] [address] 65029- 6759 Nov, [facility] [id number] [place] [address] 76780- 9109 Nov, Chronic pain syndrome G89.4 [facility] [id number] [place] [address] 84509- 5768 Oct, Moderate episode of recurrent major depressive disorder F33.1 and Generalized anxiety disorder F41.1 [facility] [place] [id number] [place] [address] 58543- 9132 Oct, Type 2 diabetes mellitus without complications E11.9 ; Essential hypertension I10 ; Restless legs G25.81 ; Chronic tension-type headache, intractable G44.221 ; Nasal congestion R09.81 ; 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 and Chronic pain syndrome G89.4 [facility] [id number] [place] [address] 61071- 6151 Oct, Moderate episode of recurrent major depressive disorder F33.1 [facility] [id number] [place] [address] 23840- 1253 Oct, [place] [address], [place] [address]- 0886 Sep, Moderate episode of recurrent major depressive disorder F33.1 and Generalized anxiety disorder F41.1 [facility] [facility] [address], [place] [address]- 5886 Sep, Moderate episode of recurrent major depressive disorder F33.1 ; Generalized anxiety disorder F41.1 and Grief F43.20 [facility] [address], [place] [address]- 0726 Sep, Moderate episode of recurrent major depressive disorder F33.1 [facility] [place] [id number] [place] [address] 29597- 5418 Sep, [facility] [address] [place] [address] 70299- 8514 Aug, Chronic pain syndrome G89.4 [facility] [id number] [address]- 4386 Aug, [facility] [place] [address], [place] [address]- 4927 Aug, Moderate episode of recurrent major depressive disorder F33.1 ; Generalized anxiety disorder F41.1 and Grief F43.20 [place] [address], [place] [address]- 4089 Aug, [place] [address], [place] [address]- 7082 Aug, [facility] [address], [place] [address]- 5984 Jul, Chronic pain syndrome G89.4 ; Positive depression screening Z13.89 ; Essential hypertension I10 ; Restless legs G25.81 ; Severe single current episode of major depressive disorder, 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 ; Anxiety F41.9 ; Chronic tension-type headache, intractable G44.221 ; Type 2 diabetes mellitus without complications E11.9 ; [facility] 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.4 ; Right elbow pain M25.521 and Family history of pancreatic cancer Z80.0 [facility] [address] [place] [address] 20773- 7391 Jun, Chronic pain syndrome G89.4 [facility] [id number] [place] [address] 14603- 1912 May, Chronic pain syndrome G89.4 and Anxiety F41.9 [facility] [id number] [place] [address] 40493- 4093 Apr, Diabetes E11.9 ; Obesity (BMI 30-39.9) E66.9 ; Severe single current episode of major depressive disorder, 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 ; Restless legs G25.81 ; Essential hypertension I10 ; Chronic tension- type headache, intractable G44.221 ; Anxiety F41.9 ; Chronic pain syndrome G89.4 and Nausea R11.0 [facility] [address] [place] [address] 06620- 7555 Mar, Diabetes E11.9 ; Obesity (BMI 30-39.9) E66.9 ; Severe single current episode of major depressive disorder, 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 ; Restless legs G25.81 ; Essential hypertension I10 ; Chronic tension- type headache, intractable G44.221 ; Anxiety F41.9 and Chronic pain syndrome G89.4 [facility] [address] [place] [address] 74365 -4172 Feb, Diaphoresis R61 ; Diabetes E11.9 ; Elevated blood sugar R73.9 and Acute vomiting R11.10 [facility] [id number] [place] [address] [phone] Mar, Dental examination V72.2 IMMUNIZATIONS No Known Immunizations SOCIAL HISTORY Never Assessed REASON FOR VISIT memory loss--tjanssenMA, --trouble with concentration and short term memory, getting a lot worse than normal and is very noticeable. , --wanting to sleep more than normal , --muscle relaxer makes her feel terrible, would like to switch back to flexeril PLAN OF CARE Activity Details Follow Up Pending CT and lab Reason: VITAL SIGNS Height 65 in 2017-12-15 Weight 226.3 lbs 2017-12-15 Temperature 97.3 degrees Fahrenheit 2017-12-15 Heart Rate 82 bpm 2017-12-15 Respiratory Rate 20 2017-12-15 BMI 37.65 kg/m2 2017-12-15 Blood pressure systolic 132 mmHg 2017-12-15 Blood pressure diastolic 82 mmHg 2017-12-15 MEDICATIONS Medication Instructions Dosage Frequency Start Date End Date Duration Status Cymbalta 30 MG TAKE ONE CAPSULE BY MOUTH THREE TIMES DAILY 30 Active Gabapentin 100 MG TAKE ONE CAPSULE BY MOUTH TWICE DAILY NEEDED FOR ANXIETY 30 Active Metformin HCl 1000 MG TAKE ONE TABLET BY MOUTH TWICE DAILY WITH MEALS 30 Active Vitamin D (Ergocalciferol) 13227 UNIT Orally weekly x 12 weeks 1 capsule Active Lyrica 50 mg Orally Twice a day 1 capsule by mouth daily x3 days then BID Daily 12h Sep, 28 days Active Topamax 25 MG Orally Once a day 2 tablets in the evening 24h 30 days Active Januvia 100 MG TAKE ONE TABLET BY MOUTH ONCE DAILY 30 Active Zofran 4 MG Orally 3 times a day 1 tablets 8h 10 Active Lisinopril 10 mg Orally Once a day TAKE ONE TABLET BY MOUTH ONCE DAILY 24h 30 Active Cyclobenzaprine HCl 10 mg Orally 2 times a day 1 tablet as needed 12h 28 Nov, 2017 20 Feb, 2018 28 days Active Ropinirole HCl 0.5 MG Orally Once a day 1-2 tablet 1 to 3 hours before bedtime 24h Active RESULTS No Results PROCEDURES Procedure Date Ordered Result Body Site GONADOTROPIN (LH) December 15, 2017 GONADOTROPIN (FSH) December 15, 2017 ASSAY OF MAGNESIUM December 15, 2017 VENIPUNCT, ROUTINE* December 15, 2017 VITAMIN B-12 December 15, 2017 ASSAY OF ESTRADIOL December 15, 2017 COMPREHEN METABOLIC PANEL December 15, 2017 ASSAY OF VITAMIN D December 15, 2017 INSTRUCTIONS MEDICATIONS ADMINISTERED No Known Medications [...]
--- OUTSIDE RECORDS SUMMARY | 2018-05-21 03:55 | XMS REPORT ---
Author Author JOSE YU [facility] Address [address] [place] [address] Care Team Providers Care Armhole Raiser Lockstitch Name Role Phone JOSE YU Unavailable PROBLEMS Type Condition ICD9-CM Code [id number] Code Onset Dates Condition Status SNOMED Code Problem Essential hypertension I10 Active 89427712 Problem emt intermediate 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.4 Active 677574020 Problem Type 2 diabetes mellitus without complications E11.9 Active 224339704 Problem Memory changes R41.3 Active 925810704 Problem New daily persistent headache G44.52 Active 713172998914070 Problem Grief F43.20 Active 076874535 Problem Generalized anxiety disorder F41.1 Active 95874523 Problem Hypersomnia G47.10 Active 90510781 Problem Moderate episode of recurrent major depressive disorder F33.1 Active 528688996 Problem High serum estradiol R79.89 Active 047441024 Problem Unspecified ovarian cyst, left side N83.202 Active 91761402328465317 Problem Restless legs G25.81 Active 13459086 Problem Chronic pain syndrome G89.4 Active 102940058 Problem Unspecified ovarian cyst, right side N83.201 Active 33001811 Problem Chronic tension-type headache, intractable G44.221 Active 308313641 Problem History of vitamin D deficiency Z86.39 Active 793605822 Problem Obesity (BMI 30-39.9) E66.9 Active 919601855 ALLERGIES No Information ENCOUNTERS Encounter Location Date Diagnosis [facility] [id number] [address] Mar, Restless legs G25.81 ; Acute non-recurrent frontal sinusitis J01.10 and Type 2 diabetes mellitus without complications E11.9 [facility] [address] [facility] [id number] [address] Feb, Type 2 diabetes mellitus without complications E11.9 [facility] [id number] [place] [address] 25047- 4906 Feb, Chronic pain syndrome G89.4 [facility] [id number] [place] [address] 92756- 8969 January, [facility] [id number] [place] [address] 99712- 9467 January, Chronic pain syndrome G89.4 [facility] [id number] [place] [address] 18874- 9442 January, Left upper quadrant abdominal tenderness without rebound tenderness R10.812 ; Complex cyst of left ovary N83.292 and Complex cyst of right ovary N83.291 [facility] [id number] [place] [address] 25477- 9899 18 Dec, 2017 Syncope, unspecified syncope type R55 and Mass of soft tissue of right upper extremity R22.31 [facility] [id number] [place] [address] 37647- 4588 Dec, [facility] [id number] [place] [address] 75647- 5312 Dec, Moderate episode of recurrent major depressive disorder F33.1 ; Generalized anxiety disorder F41.1 and Grief F43.20 [facility] [id number] [place] [address] 12558- 8438 Dec, Moderate episode of recurrent major depressive disorder F33.1 and Generalized anxiety disorder F41.1 [facility] [address] [place] [address] 58890- 4387 Dec, [facility] [id number] [place] [address] 19426- 8573 09 Dec, 2017 Chronic pain syndrome G89.4 [facility] [id number] [place] [address] 39283- 9980 Dec, [facility] [id number] [place] [address] 93315- 3812 Nov, Moderate episode of recurrent major depressive disorder F33.1 and Generalized anxiety disorder F41.1 [facility] [id number] [place] [address] 06036- 6602 Nov, [facility] [id number] [place] [address] 66962- 4548 Nov, Chronic pain syndrome G89.4 ; Hypersomnia G47.10 ; Memory changes R41.3 ; New daily persistent headache G44.52 ; Post-menopausal Z78.0 and History of gastric surgery Z98.890 [facility] [id number] [place] [address] 51864- 6018 Nov, [facility] [id number] [place] [address] 31945- 4692 Nov, Chronic pain syndrome G89.4 [facility] [id number] [place] [address] 28060- 3622 Oct, Moderate episode of recurrent major depressive disorder F33.1 and Generalized anxiety disorder F41.1 [facility] [id number] [place] [address] 94192- 1480 Oct, Type 2 diabetes mellitus without complications E11.9 ; Essential hypertension I10 ; Restless legs G25.81 ; Chronic tension-type headache, intractable G44.221 ; Nasal congestion R09.81 ; shelter 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.4 and Chronic pain syndrome G89.4 [facility] [address] [place] [address] 27807- 2276 Oct, Moderate episode of recurrent major depressive disorder F33.1 [facility] [address] [address] Oct, [facility] [id number] [place] [address] 27631- 8781 Sep, Moderate episode of recurrent major depressive disorder F33.1 and Generalized anxiety disorder F41.1 [facility] [id number] [place] [address] 86724- 7239 Sep, Moderate episode of recurrent major depressive disorder F33.1 ; Generalized anxiety disorder F41.1 and Grief F43.20 [facility] [id number] [place] [address] 33512- 4123 Sep, Moderate episode of recurrent major depressive disorder F33.1 [facility] [id number] [place] [address] 43040- 4630 Sep, [facility] [id number] [place] [address] 26544- 3641 Aug, Chronic pain syndrome G89.4 [facility] [id number] [place] [address] 35635- 6654 Aug, [facility] [id number] [place] [address] 02834- 5170 Aug, Moderate episode of recurrent major depressive disorder F33.1 ; Generalized anxiety disorder F41.1 and Grief F43.20 [facility] [id number] [place] [address] 43924- 9704 Aug, [facility] [id number] [place] [address] 69143- 6837 Aug, [facility] [id number] [place] [address] 10132- 2849 Jul, Chronic pain syndrome G89.4 ; Positive depression screening Z13.89 ; Essential hypertension I10 ; Restless legs G25.81 ; Severe single current episode of major depressive disorder, 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 ; Anxiety F41.9 ; Chronic tension-type headache, intractable G44.221 ; Type 2 diabetes mellitus without complications E11.9 ; shelter 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.4 ; Right elbow pain M25.521 and Family history of pancreatic cancer Z80.0 [facility] [address] [place] [address] 43475- 6571 Jun, Chronic pain syndrome G89.4 [facility] [id number] [place] [address] 07710- 3492 May, Chronic pain syndrome G89.4 and Anxiety F41.9 [facility] [id number], [place] [address] Apr, Diabetes E11.9 ; Obesity (BMI 30-39.9) E66.9 ; Severe single current episode of major depressive disorder, 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 ; Restless legs G25.81 ; Essential hypertension I10 ; Chronic tension- type headache, intractable G44.221 ; Anxiety F41.9 ; Chronic pain syndrome G89.4 and Nausea R11.0 [facility] [address] [facility] [id number] [address] Mar, Diabetes E11.9 ; Obesity (BMI 30-39.9) E66.9 ; Severe single current episode of major depressive disorder, 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 ; Restless legs G25.81 ; Essential hypertension I10 ; Chronic tension- type headache, intractable G44.221 ; Anxiety F41.9 and Chronic pain syndrome G89.4 [facility] [id number], [place] [address] Feb, Diaphoresis R61 ; Diabetes E11.9 ; Elevated blood sugar R73.9 and Acute vomiting R11.10 [facility] [id number] [id number] Mar, Dental examination V72.2 IMMUNIZATIONS No Known Immunizations SOCIAL HISTORY Never Assessed REASON FOR VISIT Patient is Established with [facility] PLAN OF CARE VITAL SIGNS MEDICATIONS No Known Medications RESULTS No Results PROCEDURES No Known [...]
--- OUTSIDE RECORDS SUMMARY | 2018-05-21 03:55 | XMS REPORT ---
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.4 Active 802115608 Problem Type 2 diabetes mellitus without complications E11.9 Active 601114129 Problem Memory changes R41.3 Active 170830048 Problem New daily persistent headache G44.52 Active 254971170669113 Problem Grief F43.20 Active 187732728 Problem Generalized anxiety disorder F41.1 Active 53297157 Problem Hypersomnia G47.10 Active 83204150 Problem Moderate episode of recurrent major depressive disorder F33.1 Active 973544903 Problem High serum estradiol R79.89 Active 910137045 Problem Unspecified ovarian cyst, left side N83.202 Active 68368635693361115 Problem Restless legs G25.81 Active 97827957 Problem Chronic pain syndrome G89.4 Active 570687583 Problem Unspecified ovarian cyst, right side N83.201 Active 45852372 Problem Chronic tension-type headache, intractable G44.221 Active 703024205 Problem History of vitamin D deficiency Z86.39 Active 201743807 Problem Obesity (BMI 30-39.9) E66.9 Active 830898829 ALLERGIES No Information ENCOUNTERS Encounter Location Date Diagnosis [facility] [address] [id number] [address] Mar, [facility] [id number] [address] Mar, [facility] [id number] [address] Mar, Restless legs G25.81 ; Acute non-recurrent frontal sinusitis J01.10 and Type 2 diabetes mellitus without complications E11.9 [place] [id number] [place] [address] 24104- 6594 27 Feb, 2018 Type 2 diabetes mellitus without complications E11.9 [place] [id number] [place] [address] 49777- 0818 14 Feb, 2018 Chronic pain syndrome G89.4 [place] [address] [address]- [address] January, [place] [id number] [place] [address] 38701- 4754 January, Chronic pain syndrome G89.4 [place] [id number] [place] [address] 88681- 9316 January, Left upper quadrant abdominal tenderness without rebound tenderness R10.812 ; Complex cyst of left ovary N83.292 and Complex cyst of right ovary N83.291 [place] [id number] [place] [address] 29185- 4719 Dec, Syncope, unspecified syncope type R55 and Mass of soft tissue of right upper extremity R22.31 [place] [id number] [place] [address] 72407- 6089 Dec, [place] [id number] [place] [address] 58940- 6025 Dec, Moderate episode of recurrent major depressive disorder F33.1 ; Generalized anxiety disorder F41.1 and Grief F43.20 [place] [id number] [place] [address] 82651- 5968 11 Dec, 2017 Moderate episode of recurrent major depressive disorder F33.1 and Generalized anxiety disorder F41.1 [place] [id number] [place] [address] 61193- 5337 Dec, [place] [id number] [place] [address] 09259- 2195 Dec, Chronic pain syndrome G89.4 [facility] [address] [place] [address] 36228- 0806 Dec, [facility] [id number] [place] [address] 06838- 7677 Nov, Moderate episode of recurrent major depressive disorder F33.1 and Generalized anxiety disorder F41.1 [facility] [id number] [place] [address] 31013- 8423 Nov, [facility] [id number] [place] [address] 03098- 1776 Nov, Chronic pain syndrome G89.4 ; Hypersomnia G47.10 ; Memory changes R41.3 ; New daily persistent headache G44.52 ; Post-menopausal Z78.0 and History of gastric surgery Z98.890 [place] [id number] [place] [address] 48958- 9105 Nov, [place] [id number] [place] [address] 27072- 1339 Nov, Chronic pain syndrome G89.4 [place] [id number] [place] [address] 62085- 9566 Oct, Moderate episode of recurrent major depressive disorder F33.1 and Generalized anxiety disorder F41.1 [place] [id number] [place] [address] 35803- 0585 Oct, Type 2 diabetes mellitus without complications E11.9 ; Essential hypertension I10 ; Restless legs G25.81 ; Chronic tension-type headache, intractable G44.221 ; Nasal congestion R09.81 ; half-way 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.4 and Chronic pain syndrome G89.4 [place] [id number] [place] [address] 29850- 6709 Oct, Moderate episode of recurrent major depressive disorder F33.1 [facility] [id number] [place] [address] 99044- 1100 Oct, [place] [address] [address] Sep, Moderate episode of recurrent major depressive disorder F33.1 and Generalized anxiety disorder F41.1 [place] [address] [address]- 58[address] Sep, Moderate episode of recurrent major depressive disorder F33.1 ; Generalized anxiety disorder F41.1 and Grief F43.20 [place] [id number] [place] [address] 91356- 3676 Sep, Moderate episode of recurrent major depressive disorder F33.1 [place] [id number] [place] [address] 12061- 9663 Sep, [place] [id number] [place] [address] 78184- 1046 Aug, Chronic pain syndrome G89.4 [place] [id number] [place] [address] 29229- 6990 Aug, [place] [id number] [place] [address] 48887- 0176 Aug, Moderate episode of recurrent major depressive disorder F33.1 ; Generalized anxiety disorder F41.1 and Grief F43.20 [place] [address] [address]- 2298 Aug, [place] [address] [address]- 1129 Aug, [place] [address] [address]- 7127 Jul, Chronic pain syndrome G89.4 ; Positive depression screening Z13.89 ; Essential hypertension I10 ; Restless legs G25.81 ; Severe single current episode of major depressive disorder, 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 ; Anxiety F41.9 ; Chronic tension-type headache, intractable G44.221 ; Type 2 diabetes mellitus without complications E11.9 ; watermelon inspector 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.4 ; Right elbow pain M25.521 and Family history of pancreatic cancer Z80.0 [facility] [address] [place] [address] 70097- 6597 Jun, Chronic pain syndrome G89.4 [facility] [id number] [place] [address] 89031- 6422 May, Chronic pain syndrome G89.4 and Anxiety F41.9 [facility] [id number] [place] [address] 30402- 9194 Apr, Diabetes E11.9 ; Obesity (BMI 30-39.9) E66.9 ; Severe single current episode of major depressive disorder, 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 ; Restless legs G25.81 ; Essential hypertension I10 ; Chronic tension- type headache, intractable G44.221 ; Anxiety F41.9 ; Chronic pain syndrome G89.4 and Nausea R11.0 [facility] [address] [place] [address] 47802- 5897 Mar, Diabetes E11.9 ; Obesity (BMI 30-39.9) E66.9 ; Severe single current episode of major depressive disorder, 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 ; Restless legs G25.81 ; Essential hypertension I10 ; Chronic tension- type headache, intractable G44.221 ; Anxiety F41.9 and Chronic pain syndrome G89.4 [facility] [address] [place] [address] 05520 -3841 Feb, Diaphoresis R61 ; Diabetes E11.9 ; Elevated blood sugar R73.9 and Acute vomiting R11.10 [facility] [id number] [place] [address] [id number] Mar, Dental examination V72.2 IMMUNIZATIONS No Known Immunizations SOCIAL HISTORY Never Assessed REASON FOR VISIT med PLAN OF CARE VITAL SIGNS MEDICATIONS Medication Instructions Dosage Frequency Start Date End Date Duration Status Ondansetron HCl 4 MG Orally 3 times a day TAKE ONE TABLET 8h 10 Active RESULTS No Results PROCEDURES No Known [...]
--- OUTSIDE RECORDS SUMMARY | 2018-05-21 03:55 | XMS REPORT ---
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.4 Active 580431359 Problem Type 2 diabetes mellitus without complications E11.9 Active 416941037 Problem Memory changes R41.3 Active 438273605 Problem New daily persistent headache G44.52 Active 673717601085538 Problem Grief F43.20 Active 643177655 Problem Generalized anxiety disorder F41.1 Active 29814820 Problem Hypersomnia G47.10 Active 08684161 Problem Moderate episode of recurrent major depressive disorder F33.1 Active 906270800 Problem High serum estradiol R79.89 Active 442701037 Problem Unspecified ovarian cyst, left side N83.202 Active 28866237802705564 Problem Restless legs G25.81 Active 31504019 Problem Chronic pain syndrome G89.4 Active 836125166 Problem Unspecified ovarian cyst, right side N83.201 Active 98837850 Problem Chronic tension-type headache, intractable G44.221 Active 229788652 Problem History of vitamin D deficiency Z86.39 Active 562695908 Problem Obesity (BMI 30-39.9) E66.9 Active 068467632 ALLERGIES No Information ENCOUNTERS Encounter Location Date Diagnosis [facility] [address] [facility] [id number] [address] Mar, [facility] [address] [address] Mar, Restless legs G25.81 ; Acute non-recurrent frontal sinusitis J01.10 and Type 2 diabetes mellitus without complications E11.9 [facility] [id number] [place] [address] 33151- 2516 Feb, Type 2 diabetes mellitus without complications E11.9 [place] [id number] [place] [address] 24150- 8515 Feb, Chronic pain syndrome G89.4 [facility] [id number] [place] [address] 81295- 4839 January, [facility] [address] [address] January, Chronic pain syndrome G89.4 [place] [id number] [place] [address] 85823- 5789 January, Left upper quadrant abdominal tenderness without rebound tenderness R10.812 ; Complex cyst of left ovary N83.292 and Complex cyst of right ovary N83.291 [place] [id number] [place] [address] 31608- 7990 Dec, Syncope, unspecified syncope type R55 and Mass of soft tissue of right upper extremity R22.31 [place] [id number] [place] [address] 60334- 0051 Dec, [place] [id number] [place] [address] 09589- 4575 Dec, Moderate episode of recurrent major depressive disorder F33.1 ; Generalized anxiety disorder F41.1 and Grief F43.20 [place] [id number] [place] [address] 60703- 2416 Dec, Moderate episode of recurrent major depressive disorder F33.1 and Generalized anxiety disorder F41.1 [place] [id number] [place] [address] 40984- 0754 Dec, [place] [id number] [place] [address] 29802- 8234 Dec, Chronic pain syndrome G89.4 [place] [id number] [place] [address] 89660- 3453 Dec, [place] [id number] [place] [address] 10623- 3850 Nov, Moderate episode of recurrent major depressive disorder F33.1 and Generalized anxiety disorder F41.1 [facility] [id number] [place] [address] 95849- 4249 Nov, [place] [id number] [place] [address] 13436- 4382 Nov, Chronic pain syndrome G89.4 ; Hypersomnia G47.10 ; Memory changes R41.3 ; New daily persistent headache G44.52 ; Post-menopausal Z78.0 and History of gastric surgery Z98.890 [place] [id number] [place] [address] 45568- 9776 Nov, [place] [id number] [place] [address] 58627- 2765 Nov, Chronic pain syndrome G89.4 [place] [id number] [place] [address] 37735- 1397 Oct, Moderate episode of recurrent major depressive disorder F33.1 and Generalized anxiety disorder F41.1 [place] [id number] [place] [address] 51041- 5596 Oct, Type 2 diabetes mellitus without complications E11.9 ; Essential hypertension I10 ; Restless legs G25.81 ; Chronic tension-type headache, intractable G44.221 ; Nasal congestion R09.81 ; cutter machine tender 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.4 and Chronic pain syndrome G89.4 [place] [id number] [place] [address] 33603- 2600 Oct, Moderate episode of recurrent major depressive disorder F33.1 [place] [id number] [place] [address] 44043- 6036 Oct, [place] [id number] [place] [address] 34617- 4257 Sep, Moderate episode of recurrent major depressive disorder F33.1 and Generalized anxiety disorder F41.1 [place] [address], [place] [address] Sep, Moderate episode of recurrent major depressive disorder F33.1 ; Generalized anxiety disorder F41.1 and Grief F43.20 [place] [id number] [place] [address] 52444- 9140 Sep, Moderate episode of recurrent major depressive disorder F33.1 [place] [id number] [place] [address] 63933- 1728 Sep, [facility] [id number] [place] [address] 71682- 2521 Aug, Chronic pain syndrome G89.4 [place] [id number] [place] [address] 48539- 5374 Aug, [place] [id number] [place] [address] 51955- 8472 Aug, Moderate episode of recurrent major depressive disorder F33.1 ; Generalized anxiety disorder F41.1 and Grief F43.20 [place] [address] [place] [address] 51500- 7213 Aug, [place] [id number] [place] [address] 83240- 9267 Aug, [place] [address], [place] [address] Jul, Chronic pain syndrome G89.4 ; Positive depression screening Z13.89 ; Essential hypertension I10 ; Restless legs G25.81 ; Severe single current episode of major depressive disorder, 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 ; Anxiety F41.9 ; Chronic tension-type headache, intractable G44.221 ; Type 2 diabetes mellitus without complications E11.9 ; cutter machine tender 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.4 ; Right elbow pain M25.521 and Family history of pancreatic cancer Z80.0 [facility] [address], [place] [address] Jun, Chronic pain syndrome G89.4 [facility] [id number], [place] [address] May, Chronic pain syndrome G89.4 and Anxiety F41.9 [facility] [id number], [place] [address] Apr, Diabetes E11.9 ; Obesity (BMI 30-39.9) E66.9 ; Severe single current episode of major depressive disorder, 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 ; Restless legs G25.81 ; Essential hypertension I10 ; Chronic tension- type headache, intractable G44.221 ; Anxiety F41.9 ; Chronic pain syndrome G89.4 and Nausea R11.0 [facility] [address], [place] [address] Mar, Diabetes E11.9 ; Obesity (BMI 30-39.9) E66.9 ; Severe single current episode of major depressive disorder, 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 ; Restless legs G25.81 ; Essential hypertension I10 ; Chronic tension- type headache, intractable G44.221 ; Anxiety F41.9 and Chronic pain syndrome G89.4 [facility] [id number] [address] Feb, Diaphoresis R61 ; Diabetes E11.9 ; Elevated blood sugar R73.9 and Acute vomiting R11.10 [facility] [id number] [id number] Mar, Dental examination V72.2 IMMUNIZATIONS No Known Immunizations SOCIAL HISTORY Never Assessed REASON FOR VISIT Follow-up Depression PLAN OF CARE Activity Details Follow Up 2 Weeks Reason: Follow-up VITAL SIGNS MEDICATIONS Unknown Medications RESULTS No Results PROCEDURES Procedure Date Ordered Result Body Site Psychotherapy, patient &/family, 30 minutes, established patient December 15, 2017 INSTRUCTIONS MEDICATIONS ADMINISTERED No [...]
--- OUTSIDE RECORDS SUMMARY | 2018-05-21 03:56 | XMS REPORT ---
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.4 Active 912093561 Problem Type 2 diabetes mellitus without complications E11.9 Active 030125254 Problem Memory changes R41.3 Active 571379591 Problem New daily persistent headache G44.52 Active 413213680721347 Problem Grief F43.20 Active 027893801 Problem Generalized anxiety disorder F41.1 Active 10486249 Problem Hypersomnia G47.10 Active 92057200 Problem Moderate episode of recurrent major depressive disorder F33.1 Active 822290014 Problem High serum estradiol R79.89 Active 766283528 Problem Unspecified ovarian cyst, left side N83.202 Active 44878748301582257 Problem Restless legs G25.81 Active 40806436 Problem Chronic pain syndrome G89.4 Active 124392965 Problem Unspecified ovarian cyst, right side N83.201 Active 10781277 Problem Chronic tension-type headache, intractable G44.221 Active 998939353 Problem History of vitamin D deficiency Z86.39 Active 974875266 Problem Obesity (BMI 30-39.9) E66.9 Active 308029840 ALLERGIES No Information ENCOUNTERS Encounter Location Date Diagnosis [facility] [address] [facility] [id number] [address] Mar, Restless legs G25.81 ; Acute non-recurrent frontal sinusitis J01.10 and Type 2 diabetes mellitus without complications E11.9 [facility] [id number] [address] Feb, Type 2 diabetes mellitus without complications E11.9 [facility] [id number] [place] [address] 64003- 9160 Feb, Chronic pain syndrome G89.4 [facility] [id number] [place] [address] 60015- 7490 January, [place] [id number] [place] [address] 11947- 3286 January, Chronic pain syndrome G89.4 [facility] [id number] [place] [address] 43794- 8178 January, Left upper quadrant abdominal tenderness without rebound tenderness R10.812 ; Complex cyst of left ovary N83.292 and Complex cyst of right ovary N83.291 [place] [id number] [place] [address] 32999- 2244 Dec, Syncope, unspecified syncope type R55 and Mass of soft tissue of right upper extremity R22.31 [place] [id number] [place] [address] 84199- 8532 Dec, [place] [id number] [place] [address] 00620- 7808 Dec, Moderate episode of recurrent major depressive disorder F33.1 ; Generalized anxiety disorder F41.1 and Grief F43.20 [place] [id number] [place] [address] 06095- 5390 Dec, Moderate episode of recurrent major depressive disorder F33.1 and Generalized anxiety disorder F41.1 [facility] [id number] [place] [address] 60837- 4113 Dec, [facility] [id number] [place] [address] 50473- 2107 Dec, Chronic pain syndrome G89.4 [facility] [id number] [place] [address] 07394- 5449 Dec, [facility] [id number] [place] [address] 38252- 3086 Nov, Moderate episode of recurrent major depressive disorder F33.1 and Generalized anxiety disorder F41.1 [place] [id number] [place] [address] 75776- 2263 Nov, [place] [id number] [place] [address] 57172- 5402 Nov, Chronic pain syndrome G89.4 ; Hypersomnia G47.10 ; Memory changes R41.3 ; New daily persistent headache G44.52 ; Post-menopausal Z78.0 and History of gastric surgery Z98.890 [place] [id number] [place] [address] 77830- 0925 Nov, [place] [id number] [place] [address] 25480- 6419 Nov, Chronic pain syndrome G89.4 [place] [id number] [place] [address] 80474- 3760 Oct, Moderate episode of recurrent major depressive disorder F33.1 and Generalized anxiety disorder F41.1 [place] [id number] [place] [address] 78715- 9424 Oct, Type 2 diabetes mellitus without complications E11.9 ; Essential hypertension I10 ; Restless legs G25.81 ; Chronic tension-type headache, intractable G44.221 ; Nasal congestion R09.81 ; oil 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.4 and Chronic pain syndrome G89.4 [place] [id number] [place] [address] 73489- 8644 Oct, Moderate episode of recurrent major depressive disorder F33.1 [place] [id number] [place] [address] 80865- 6910 Oct, [place] [id number] [place] [address] 88571- 5158 Sep, Moderate episode of recurrent major depressive disorder F33.1 and Generalized anxiety disorder F41.1 [place] [id number] [place] [address] 04585- 7091 Sep, Moderate episode of recurrent major depressive disorder F33.1 ; Generalized anxiety disorder F41.1 and Grief F43.20 [place] [id number] [place] [address] 73528- 2332 Sep, Moderate episode of recurrent major depressive disorder F33.1 [place] [id number] [place] [address] 73725- 7839 Sep, [place] [id number] [place] [address] 94169- 6666 Aug, Chronic pain syndrome G89.4 [place] [id number] [place] [address] 13184- 3678 Aug, [place] [id number] [place] [address] 10056- 1571 Aug, Moderate episode of recurrent major depressive disorder F33.1 ; Generalized anxiety disorder F41.1 and Grief F43.20 [place] [id number] [place] [address] 52215- 9769 Aug, [place] [id number] [place] [address] 82982- 6105 Aug, [place] [id number] [place] [address] 96037- 1416 Jul, Chronic pain syndrome G89.4 ; Positive depression screening Z13.89 ; Essential hypertension I10 ; Restless legs G25.81 ; Severe single current episode of major depressive disorder, 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 ; Anxiety F41.9 ; Chronic tension-type headache, intractable G44.221 ; Type 2 diabetes mellitus without complications E11.9 ; long-term 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.4 ; Right elbow pain M25.521 and Family history of pancreatic cancer Z80.0 [place] [id number] [place] [address] 21238- 3116 Jun, Chronic pain syndrome G89.4 [place] [id number] [place] [address] 55566- 4050 May, Chronic pain syndrome G89.4 and Anxiety F41.9 [facility] [id number], [place] [address] Apr, Diabetes E11.9 ; Obesity (BMI 30-39.9) E66.9 ; Severe single current episode of major depressive disorder, 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 ; Restless legs G25.81 ; Essential hypertension I10 ; Chronic tension- type headache, intractable G44.221 ; Anxiety F41.9 ; Chronic pain syndrome G89.4 and Nausea R11.0 [facility] [id number], [place] [address] 69[address] Mar, Diabetes E11.9 ; Obesity (BMI 30-39.9) E66.9 ; Severe single current episode of major depressive disorder, 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 ; Restless legs G25.81 ; Essential hypertension I10 ; Chronic tension- type headache, intractable G44.221 ; Anxiety F41.9 and Chronic pain syndrome G89.4 [facility] [id number], [place] [address] Feb, Diaphoresis R61 ; Diabetes E11.9 ; Elevated blood sugar R73.9 and Acute vomiting R11.10 [facility] [id number] [place] [id number] Mar, Dental examination V72.2 IMMUNIZATIONS No Known Immunizations SOCIAL HISTORY Never Assessed REASON FOR VISIT intake PLAN OF CARE Activity Details Follow Up 2 Weeks Reason: Follow-up VITAL SIGNS MEDICATIONS Medication Instructions Dosage Frequency Start Date End Date Duration Status Metformin HCl 1000 MG TAKE ONE TABLET BY MOUTH TWICE DAILY WITH MEALS 30 Active [place] 5-325 MG 1 po tid x 7 days then bid x 7 days then daily x 7 days Sep, Active Ropinirole HCl 0.5 MG Orally Once a day 1-2 tablet 1 to 3 hours before bedtime 24h Active Cyclobenzaprine HCl 10 mg Orally 2 times a day 1 tablet as needed 12h Sep, 28 days Active Zofran 4 MG Orally 3 times a day 1 tablets 8h 10 Active Voltaren 1 % Transdermal 3 times a day, PRN apply 2 grams to elbow Aug Unknown Norel AD 4-10-325 MG Active Lyrica 50 mg 1 capsule by mouth daily x3 days then BID Daily Sep, Active Cymbalta 30 MG Orally 3 times a day 1 capsule 8h Aug, Active Januvia 100 mg Orally Once a day 1 tablet 24h 30 Active Gabapentin 100 mg Orally 2 times a day as needed for anxiety 1 capsule Aug, Active Lantus SoloStar 100 UNIT/ML Subcutaneous at bedtime 20 units Active Topamax 25 MG Orally Once a day 2 tablets in the evening 24h 30 days Active Xanax 0.5 MG Orally once daily as needed 1 tablet Sep, 30 days Active Lisinopril 10 mg Orally Once a day TAKE ONE TABLET BY MOUTH ONCE DAILY 24h 30 Active RESULTS No Results PROCEDURES Procedure Date Ordered Result Body Site Psych diagnostic evaluation, established patient Oct 11, 2017 INSTRUCTIONS MEDICATIONS ADMINISTERED No Known Medications [...]
--- OUTSIDE RECORDS SUMMARY | 2018-05-21 03:56 | XMS REPORT ---
Author Author JOSE NIGHAT [facility] Address [address] [place] [address] Care Team Providers Care Chip Frier Name Role Phone JOSE, NIGHAT Unavailable PROBLEMS Type Condition ICD9-CM Code [id number] Code Onset Dates Condition Status SNOMED Code Problem Essential hypertension I10 Active 27996662 Problem senior living 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.4 Active 693882363 Problem Type 2 diabetes mellitus without complications E11.9 Active 544288994 Problem Memory changes R41.3 Active 848061111 Problem New daily persistent headache G44.52 Active 473085901787615 Problem Grief F43.20 Active 751270764 Problem Generalized anxiety disorder F41.1 Active 13881511 Problem Hypersomnia G47.10 Active 00249087 Problem Moderate episode of recurrent major depressive disorder F33.1 Active 063450061 Problem High serum estradiol R79.89 Active 432184787 Problem Unspecified ovarian cyst, left side N83.202 Active 79101120827264235 Problem Restless legs G25.81 Active 11591858 Problem Chronic pain syndrome G89.4 Active 213053033 Problem Unspecified ovarian cyst, right side N83.201 Active 57830419 Problem Chronic tension-type headache, intractable G44.221 Active 459187544 Problem History of vitamin D deficiency Z86.39 Active 413707554 Problem Obesity (BMI 30-39.9) E66.9 Active 334382750 ALLERGIES No Information ENCOUNTERS Encounter Location Date Diagnosis [facility] [address] [facility] [id number] [address] Mar, [facility] [address] [id number] [address] Feb, Type 2 diabetes mellitus without complications E11.9 [facility] [address] [facility] [id number] [address] Feb, Chronic pain syndrome G89.4 [facility] [id number] [place] [address] 85396- 1046 January, [facility] [id number] [place] [address] 43102- 5793 January, Chronic pain syndrome G89.4 [facility] [id number] [place] [address] 99995- 8008 January, Left upper quadrant abdominal tenderness without rebound tenderness R10.812 ; Complex cyst of left ovary N83.292 and Complex cyst of right ovary N83.291 [place] [id number] [place] [address] 09469- 7385 Dec, Syncope, unspecified syncope type R55 and Mass of soft tissue of right upper extremity R22.31 [place] [facility] [id number] [place] [address] 28186- 5932 Dec, [place] [id number] [place] [address] 12184- 4669 Dec, Moderate episode of recurrent major depressive disorder F33.1 ; Generalized anxiety disorder F41.1 and Grief F43.20 [place] [facility] [id number] [place] [address] 22029- 7230 Dec, Moderate episode of recurrent major depressive disorder F33.1 and Generalized anxiety disorder F41.1 [facility] [facility] [id number] [place] [address] 28671- 6508 Dec, [facility] [id number] [place] [address] 54152- 7304 Dec, Chronic pain syndrome G89.4 [facility] [id number] [place] [address] 26956- 1930 Dec, [facility] [id number] [place] [address] 80566- 2814 Nov, Moderate episode of recurrent major depressive disorder F33.1 and Generalized anxiety disorder F41.1 [place] [facility] [id number] [place] [address] 66082- 5018 Nov, [place] [facility] [id number] [place] [address] 16317- 7578 Nov, Chronic pain syndrome G89.4 ; Hypersomnia G47.10 ; Memory changes R41.3 ; New daily persistent headache G44.52 ; Post-menopausal Z78.0 and History of gastric surgery Z98.890 [place] [facility] [id number] [place] [address] 79508- 3511 Nov, [facility] [facility] [id number] [place] [address] 59848- 2057 Nov, Chronic pain syndrome G89.4 [facility] [id number] [place] [address] 68873- 0149 Oct, Moderate episode of recurrent major depressive disorder F33.1 and Generalized anxiety disorder F41.1 [facility] [id number] [place] [address] 79099- 8718 Oct, Type 2 diabetes mellitus without complications E11.9 ; Essential hypertension I10 ; Restless legs G25.81 ; Chronic tension-type headache, intractable G44.221 ; Nasal congestion R09.81 ; call or contact centre manager 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.4 and Chronic pain syndrome G89.4 [facility] [facility] [id number] [place] [address] 66398- 4692 Oct, Moderate episode of recurrent major depressive disorder F33.1 [place] [id number] [place] [address] 68064- 9162 Oct, [place] [id number] [place] [address] 05408- 5886 Sep, Moderate episode of recurrent major depressive disorder F33.1 and Generalized anxiety disorder F41.1 [place] [id number] [place] [address] 62595- 2438 Sep, Moderate episode of recurrent major depressive disorder F33.1 ; Generalized anxiety disorder F41.1 and Grief F43.20 [place] [id number] [place] [address] 89646- 9024 Sep, Moderate episode of recurrent major depressive disorder F33.1 [place] [id number] [place] [address] 15530- 9553 Sep, [place] [facility] [id number] [place] [address] 42192- 8894 Aug, Chronic pain syndrome G89.4 [facility] [id number] [place] [address] 56489- 9550 Aug, [place] [id number] [place] [address] 75849- 3487 Aug, Moderate episode of recurrent major depressive disorder F33.1 ; Generalized anxiety disorder F41.1 and Grief F43.20 [place] [id number] [place] [address] 78073- 5500 Aug, [place] [id number] [place] [address] 97161- 1360 Aug, [place] [id number] [place] [address] 19577- 6397 Jul, Chronic pain syndrome G89.4 ; Positive depression screening Z13.89 ; Essential hypertension I10 ; Restless legs G25.81 ; Severe single current episode of major depressive disorder, 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 ; Anxiety F41.9 ; Chronic tension-type headache, intractable G44.221 ; Type 2 diabetes mellitus without complications E11.9 ; call or contact centre manager 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.4 ; Right elbow pain M25.521 and Family history of pancreatic cancer Z80.0 [place] [facility] [id number] [place] [address] 11288- 7507 Jun, Chronic pain syndrome G89.4 [facility] [id number] [place] [address] 06970- 2333 May, Chronic pain syndrome G89.4 and Anxiety F41.[address] [id number] [address] Apr, Diabetes E11.9 ; Obesity (BMI 30-39.9) E66.9 ; Severe single current episode of major depressive disorder, 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 ; Restless legs G25.81 ; Essential hypertension I10 ; Chronic tension- type headache, intractable G44.221 ; Anxiety F41.9 ; Chronic pain syndrome G89.4 and Nausea R11.0 [facility] [id number] [address] Mar, Diabetes E11.9 ; Obesity (BMI 30-39.9) E66.9 ; Severe single current episode of major depressive disorder, 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 ; Restless legs G25.81 ; Essential hypertension I10 ; Chronic tension- type headache, intractable G44.221 ; Anxiety F41.9 and Chronic pain syndrome G89.4 [facility] [address] [id number] [address] Feb, Diaphoresis R61 ; Diabetes E11.9 ; Elevated blood sugar R73.9 and Acute vomiting R11.10 [facility] [id number] [place] [address] [id number] Mar, Dental examination V72.2 IMMUNIZATIONS No Known Immunizations SOCIAL HISTORY Never Assessed REASON FOR VISIT xanax refill PLAN OF CARE VITAL SIGNS MEDICATIONS Medication Instructions Dosage Frequency Start Date End Date Duration Status Xanax 0.5 MG Orally once daily as needed 1 tablet Sep, 30 days Active RESULTS No Results PROCEDURES [...]
--- OUTSIDE RECORDS SUMMARY | 2018-05-21 03:56 | XMS REPORT ---
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.4 Active 443900915 Problem Type 2 diabetes mellitus without complications E11.9 Active 676796603 Problem Memory changes R41.3 Active 578748766 Problem New daily persistent headache G44.52 Active 942943508084754 Problem Grief F43.20 Active 233191519 Problem Generalized anxiety disorder F41.1 Active 93869470 Problem Hypersomnia G47.10 Active 95264884 Problem Moderate episode of recurrent major depressive disorder F33.1 Active 327768635 Problem High serum estradiol R79.89 Active 362890340 Problem Unspecified ovarian cyst, left side N83.202 Active 93743511948505899 Problem Restless legs G25.81 Active 67863321 Problem Chronic pain syndrome G89.4 Active 995373989 Problem Unspecified ovarian cyst, right side N83.201 Active 64250343 Problem Chronic tension-type headache, intractable G44.221 Active 844780104 Problem History of vitamin D deficiency Z86.39 Active 228780029 Problem Obesity (BMI 30-39.9) E66.9 Active 761464834 ALLERGIES No Information ENCOUNTERS Encounter Location Date Diagnosis [facility] [address] [facility] [id number], [place] [address] Mar, Restless legs G25.81 ; Acute non-recurrent frontal sinusitis J01.10 and Type 2 diabetes mellitus without complications E11.9 [facility] [address] [id number], [place] [address] 9902 Feb, Type 2 diabetes mellitus without complications E11.9 [facility] [id number] [place] [address] 27071- 3906 Feb, Chronic pain syndrome G89.4 [facility] [id number] [place] [address] 67590- 4815 January, [place] [id number] [place] [address] 61279- 0088 January, Chronic pain syndrome G89.4 [facility] [id number] [place] [address] 76390- 5804 January, Left upper quadrant abdominal tenderness without rebound tenderness R10.812 ; Complex cyst of left ovary N83.292 and Complex cyst of right ovary N83.291 [place] [id number] [place] [address] 12631- 5632 Dec, Syncope, unspecified syncope type R55 and Mass of soft tissue of right upper extremity R22.31 [place] [id number] [place] [address] 37204- 1751 Dec, [place] [id number] [place] [address] 94331- 7836 Dec, Moderate episode of recurrent major depressive disorder F33.1 ; Generalized anxiety disorder F41.1 and Grief F43.20 [place] [id number] [place] [address] 75805- 8598 Dec, Moderate episode of recurrent major depressive disorder F33.1 and Generalized anxiety disorder F41.1 [facility] [id number] [place] [address] 37058- 3592 Dec, [facility] [id number] [place] [address] 18697- 7114 Dec, Chronic pain syndrome G89.4 [facility] [id number] [place] [address] 48599- 2509 Dec, [facility] [id number] [place] [address] 02057- 0446 Nov, Moderate episode of recurrent major depressive disorder F33.1 and Generalized anxiety disorder F41.1 [place] [id number] [place] [address] 18255- 2730 Nov, [place] [id number] [place] [address] 51247- 0399 Nov, Chronic pain syndrome G89.4 ; Hypersomnia G47.10 ; Memory changes R41.3 ; New daily persistent headache G44.52 ; Post-menopausal Z78.0 and History of gastric surgery Z98.890 [place] [id number] [place] [address] 54052- 4545 Nov, [place] [id number] [place] [address] 10723- 2338 Nov, Chronic pain syndrome G89.4 [place] [id number] [place] [address] 95029- 0241 Oct, Moderate episode of recurrent major depressive disorder F33.1 and Generalized anxiety disorder F41.1 [place] [id number] [place] [address] 00569- 1559 Oct, Type 2 diabetes mellitus without complications E11.9 ; Essential hypertension I10 ; Restless legs G25.81 ; Chronic tension-type headache, intractable G44.221 ; Nasal congestion R09.81 ; 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.4 and Chronic pain syndrome G89.4 [place] [id number] [place] [address] 25694- 8817 Oct, Moderate episode of recurrent major depressive disorder F33.1 [place] [id number] [place] [address] 98633- 2756 Oct, [place] [id number] [place] [address] 05027- 3728 Sep, Moderate episode of recurrent major depressive disorder F33.1 and Generalized anxiety disorder F41.1 [place] [id number] [place] [address] 69684- 6475 Sep, Moderate episode of recurrent major depressive disorder F33.1 ; Generalized anxiety disorder F41.1 and Grief F43.20 [place] [id number] [place] [address] 69540- 0336 Sep, Moderate episode of recurrent major depressive disorder F33.1 [place] [id number] [place] [address] 93064- 0718 Sep, [place] [id number] [place] [address] 06174- 2780 Aug, Chronic pain syndrome G89.4 [place] [id number] [place] [address] 42336- 0792 Aug, [place] [id number] [place] [address] 70455- 2983 Aug, Moderate episode of recurrent major depressive disorder F33.1 ; Generalized anxiety disorder F41.1 and Grief F43.20 [place] [id number] [place] [address] 44421- 5208 Aug, [place] [id number] [place] [address] 24940- 4496 Aug, [place] [id number] [place] [address] 73125- 7484 Jul, Chronic pain syndrome G89.4 ; Positive depression screening Z13.89 ; Essential hypertension I10 ; Restless legs G25.81 ; Severe single current episode of major depressive disorder, 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 ; Anxiety F41.9 ; Chronic tension-type headache, intractable G44.221 ; Type 2 diabetes mellitus without complications E11.9 ; jail 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.4 ; Right elbow pain M25.521 and Family history of pancreatic cancer Z80.0 [place] [id number] [place] [address] 33719- 9295 Jun, Chronic pain syndrome G89.4 [place] [id number] [place] [address] 46284- 8179 May, Chronic pain syndrome G89.4 and Anxiety F41.9 [facility] [id number], [place] [address] 0646 Apr, Diabetes E11.9 ; Obesity (BMI 30-39.9) E66.9 ; Severe single current episode of major depressive disorder, 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 ; Restless legs G25.81 ; Essential hypertension I10 ; Chronic tension- type headache, intractable G44.221 ; Anxiety F41.9 ; Chronic pain syndrome G89.4 and Nausea R11.0 [facility] [id number], [place] [address] 1298 Mar, Diabetes E11.9 ; Obesity (BMI 30-39.9) E66.9 ; Severe single current episode of major depressive disorder, 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 ; Restless legs G25.81 ; Essential hypertension I10 ; Chronic tension- type headache, intractable G44.221 ; Anxiety F41.9 and Chronic pain syndrome G89.4 [facility] [id number], [place] [address] Feb, Diaphoresis R61 ; Diabetes E11.9 ; Elevated blood sugar R73.9 and Acute vomiting R11.10 [facility] [id number] [place] [address] [id number] Mar, Dental examination V72.2 IMMUNIZATIONS No Known Immunizations SOCIAL HISTORY Never Assessed REASON FOR VISIT Follow-up Depression PLAN OF CARE Activity Details Follow Up Next available Reason: Follow-up VITAL SIGNS MEDICATIONS No Known Medications RESULTS No Results PROCEDURES Procedure Date Ordered Result Body Site Psychotherapy, patient &/family, 30 minutes, established patient Nov 17, 2017 INSTRUCTIONS MEDICATIONS ADMINISTERED No Known Medications [...]
--- OUTSIDE RECORDS SUMMARY | 2018-05-21 03:56 | XMS REPORT ---
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.4 Active 533370399 Problem Type 2 diabetes mellitus without complications E11.9 Active 053397461 Problem Memory changes R41.3 Active 922824083 Problem New daily persistent headache G44.52 Active 767528640176384 Problem Grief F43.20 Active 941646627 Problem Generalized anxiety disorder F41.1 Active 94230484 Problem Hypersomnia G47.10 Active 70363001 Problem Moderate episode of recurrent major depressive disorder F33.1 Active 237386140 Problem High serum estradiol R79.89 Active 952008613 Problem Unspecified ovarian cyst, left side N83.202 Active 12823903701964446 Problem Restless legs G25.81 Active 62832983 Problem Chronic pain syndrome G89.4 Active 438899508 Problem Unspecified ovarian cyst, right side N83.201 Active 06258967 Problem Chronic tension-type headache, intractable G44.221 Active 200811791 Problem History of vitamin D deficiency Z86.39 Active 706579446 Problem Obesity (BMI 30-39.9) E66.9 Active 415806737 ALLERGIES No Information ENCOUNTERS Encounter Location Date Diagnosis [facility] [id number] [address] Mar, Restless legs G25.81 ; Acute non-recurrent frontal sinusitis J01.10 and Type 2 diabetes mellitus without complications E11.9 [facility] [id number] [address] Feb, Type 2 diabetes mellitus without complications E11.9 [place] [id number] [place] [address] 40060[address] 7493 Feb, Chronic pain syndrome G89.4 [place] [id number] [place] [address] 11497- 6668 January, [place] [id number] [place] [address] 54860- 4766 January, Chronic pain syndrome G89.4 [place] [address] [address] January, Left upper quadrant abdominal tenderness without rebound tenderness R10.812 ; Complex cyst of left ovary N83.292 and Complex cyst of right ovary N83.291 [place] [id number] [place] [address] 02544- 6487 Dec, Syncope, unspecified syncope type R55 and Mass of soft tissue of right upper extremity R22.31 [address] [address] [address]- [address] Dec, [place] [id number] [place] [address] 85663- 9607 Dec, Moderate episode of recurrent major depressive disorder F33.1 ; Generalized anxiety disorder F41.1 and Grief F43.20 [place] [id number] [place] [address] 31798- 3799 Dec, Moderate episode of recurrent major depressive disorder F33.1 and Generalized anxiety disorder F41.1 [place] [id number] [place] [address] 68506- 2805 Dec, [place] [id number] [place] [address] 72930- 4706 Dec, Chronic pain syndrome G89.4 [facility] [id number] [place] [address] 75709- 2190 Dec, [address] [place] [address]39 Nov, Moderate episode of recurrent major depressive disorder F33.1 and Generalized anxiety disorder F41.1 [place] [id number] [place] [address] 54878- 5895 Nov, [place] [id number] [place] [address] 14895- 7953 Nov, Chronic pain syndrome G89.4 ; Hypersomnia G47.10 ; Memory changes R41.3 ; New daily persistent headache G44.52 ; Post-menopausal Z78.0 and History of gastric surgery Z98.890 [address] [id number] [place] [address] 33473- 5868 Nov, [place] [address] 75373- 5797 Nov, Chronic pain syndrome G89.4 [place] [id number] [place] [address] 97475- 7651 Oct, Moderate episode of recurrent major depressive disorder F33.1 and Generalized anxiety disorder F41.1 [place] [id number] [place] [address] 01657- 3472 Oct, Type 2 diabetes mellitus without complications E11.9 ; Essential hypertension I10 ; Restless legs G25.81 ; Chronic tension-type headache, intractable G44.221 ; Nasal congestion R09.81 ; 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 director 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.4 and Chronic pain syndrome G89.4 [address] [place] [id number] [place] [address] 56320- 4172 Oct, Moderate episode of recurrent major depressive disorder F33.1 [address] [id number] [place] [address] 58108- 2254 Oct, [place] [id number] [place] [address] 13313- 2902 Sep, Moderate episode of recurrent major depressive disorder F33.1 and Generalized anxiety disorder F41.1 [place] [id number] [place] [address] 76797- 5592 Sep, Moderate episode of recurrent major depressive disorder F33.1 ; Generalized anxiety disorder F41.1 and Grief F43.20 [address] [id number] [place] [address] 85840- 5552 Sep, Moderate episode of recurrent major depressive disorder F33.1 [place] [id number] [place] [address] 83086- 2724 Sep, [place] [id number] [place] [address] 09153- 8814 Aug, Chronic pain syndrome G89.4 [place] [id number] [place] [address] 32078- 6083 Aug, [place] [id number] [place] [address] 42395- 0856 Aug, Moderate episode of recurrent major depressive disorder F33.1 ; Generalized anxiety disorder F41.1 and Grief F43.20 [address] [id number] [place] [address] 28166- 4258 Aug, [place] [id number] [place] [address] 63949- 6182 Aug, [place] [id number] [place] [address] 20195- 6864 Jul, Chronic pain syndrome G89.4 ; Positive depression screening Z13.89 ; Essential hypertension I10 ; Restless legs G25.81 ; Severe single current episode of major depressive disorder, 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 ; Anxiety F41.9 ; Chronic tension-type headache, intractable G44.221 ; Type 2 diabetes mellitus without complications E11.9 ; [facility] 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.4 ; Right elbow pain M25.521 and Family history of pancreatic cancer Z80.0 [address] [id number] [place] [address] 33998- 2111 Jun, Chronic pain syndrome G89.4 [place] [id number] [place] [address] 57263- 3850 May, Chronic pain syndrome G89.4 and Anxiety F41.9 [facility] [id number] [address] Apr, Diabetes E11.9 ; Obesity (BMI 30-39.9) E66.9 ; Severe single current episode of major depressive disorder, 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 ; Restless legs G25.81 ; Essential hypertension I10 ; Chronic tension- type headache, intractable G44.221 ; Anxiety F41.9 ; Chronic pain syndrome G89.4 and Nausea R11.0 [facility] [id number] [address] Mar, Diabetes E11.9 ; Obesity (BMI 30-39.9) E66.9 ; Severe single current episode of major depressive disorder, 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 ; Restless legs G25.81 ; Essential hypertension I10 ; Chronic tension- type headache, intractable G44.221 ; Anxiety F41.9 and Chronic pain syndrome G89.4 [facility] [id number] [address] Feb, Diaphoresis R61 ; Diabetes E11.9 ; Elevated blood sugar R73.9 and Acute vomiting R11.10 [facility] [id number] [id number] Mar, Dental examination V72.2 IMMUNIZATIONS No Known Immunizations SOCIAL HISTORY Never Assessed REASON FOR VISIT Refill request PLAN OF CARE VITAL SIGNS MEDICATIONS Medication [...]
--- OUTSIDE RECORDS SUMMARY | 2018-05-21 03:56 | XMS REPORT ---
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.4 Active 813539820 Problem Type 2 diabetes mellitus without complications E11.9 Active 946703967 Problem Memory changes R41.3 Active 199837434 Problem New daily persistent headache G44.52 Active 496322327920549 Problem Grief F43.20 Active 599264685 Problem Generalized anxiety disorder F41.1 Active 87737321 Problem Hypersomnia G47.10 Active 75419598 Problem Moderate episode of recurrent major depressive disorder F33.1 Active 447294133 Problem Restless legs G25.81 Active 42422849 Problem Chronic pain syndrome G89.4 Active 781920571 Problem High serum estradiol R79.89 Active 221413555 Problem Chronic tension-type headache, intractable G44.221 Active 566995171 Problem History of vitamin D deficiency Z86.39 Active 055834182 Problem Obesity (BMI 30-39.9) E66.9 Active 476223727 ALLERGIES No Information ENCOUNTERS Encounter Location Date Diagnosis [facility] [id number], [place] [address] January, [facility] [address], [place] [address] January, [id number] [place] [address] 57650- 6458 January, [facility] [id number], [place] [address] Dec, Syncope, unspecified syncope type R55 and Mass of soft tissue of right upper extremity R22.31 [facility] [id number] [place] [address] 09193- 9868 Dec, [facility] [id number] [place] [address] 39355- 2546 Dec, Moderate episode of recurrent major depressive disorder F33.1 ; Generalized anxiety disorder F41.1 and Grief F43.20 [facility] [id number] [place] [address] 88321- 2988 Dec, Moderate episode of recurrent major depressive disorder F33.1 and Generalized anxiety disorder F41.1 [facility] [id number] [place] [address] 53199- 2479 Dec, [facility] [id number] [place] [address] 43702- 0466 Dec, Chronic pain syndrome G89.4 [facility] [id number] [place] [address] 87947- 1475 Dec, [facility] [id number] [place] [address] 40909- 1254 Nov, Moderate episode of recurrent major depressive disorder F33.1 and Generalized anxiety disorder F41.1 [facility] [id number] [place] [address] 07328- 8146 Nov, [facility] [id number] [place] [address] 04992- 8727 Nov, Chronic pain syndrome G89.4 ; Hypersomnia G47.10 ; Memory changes R41.3 ; New daily persistent headache G44.52 ; Post-menopausal Z78.0 and History of gastric surgery Z98.890 [facility] [id number] [place] [address] 92677- 1724 Nov, [facility] [id number] [place] [address] 11383- 6933 06 Nov, 2017 Chronic pain syndrome G89.4 [facility] [id number] [place] [address] 33828- 6598 Oct, Moderate episode of recurrent major depressive disorder F33.1 and Generalized anxiety disorder F41.1 [place] [place] [id number] [place] [address] 93361- 2258 Oct, Type 2 diabetes mellitus without complications E11.9 ; Essential hypertension I10 ; Restless legs G25.81 ; Chronic tension-type headache, intractable G44.221 ; Nasal congestion R09.81 ; oysterman 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.4 and Chronic pain syndrome G89.4 [address] [place] [id number] [place] [address] 52268- 2677 Oct, Moderate episode of recurrent major depressive disorder F33.1 [place] [place] [id number] [place] [address] 90510- 1310 Oct, [place] [id number] [place] [address] 35393- 5206 Sep, Moderate episode of recurrent major depressive disorder F33.1 and Generalized anxiety disorder F41.1 [address] [place] [id number] [place] [address] 82410- 2446 Sep, Moderate episode of recurrent major depressive disorder F33.1 ; Generalized anxiety disorder F41.1 and Grief F43.20 [address] [place], [place] [address]- 3[address] Sep, Moderate episode of recurrent major depressive disorder F33.1 [address] [place], [place] [address]- 3781 Sep, [address] [id number] [place] [address] 13394- 2800 Aug, Chronic pain syndrome G89.4 [facility] [address] [place] [address] 21848- 4713 Aug, [place] [id number] [place] [address] 88468- 4654 Aug, Moderate episode of recurrent major depressive disorder F33.1 ; Generalized anxiety disorder F41.1 and Grief F43.20 [place] [place] [id number] [place] [address] 11984- 8219 Aug, [place] [place] [id number] [place] [address] 44643- 7328 Aug, [address] [place] [id number] [place] [address] 44401- 0976 Jul, Chronic pain syndrome G89.4 ; Positive depression screening Z13.89 ; Essential hypertension I10 ; Restless legs G25.81 ; Severe single current episode of major depressive disorder, 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 ; Anxiety F41.9 ; Chronic tension-type headache, intractable G44.221 ; Type 2 diabetes mellitus without complications E11.9 ; alf 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.4 ; Right elbow pain M25.521 and Family history of pancreatic cancer Z80.0 [id number] [place] [address] 48371- 2389 Jun, Chronic pain syndrome G89.4 [place] [id number] [place] [address] 21648- 9187 May, Chronic pain syndrome G89.4 and Anxiety F41.9 [id number] [place] [address] 28953- 1847 Apr, Diabetes E11.9 ; Obesity (BMI 30-39.9) E66.9 ; Severe single current episode of major depressive disorder, 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 ; Restless legs G25.81 ; Essential hypertension I10 ; Chronic tension- type headache, intractable G44.221 ; Anxiety F41.9 ; Chronic pain syndrome G89.4 and Nausea R11.0 [place] [id number] [place] [address] 46519- 0025 Mar, Diabetes E11.9 ; Obesity (BMI 30-39.9) E66.9 ; Severe single current episode of major depressive disorder, 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 ; Restless legs G25.81 ; Essential hypertension I10 ; Chronic tension- type headache, intractable G44.221 ; Anxiety F41.9 and Chronic pain syndrome G89.4 [facility] [address] [facility] [id number] [address] Feb, Diaphoresis R61 ; Diabetes E11.9 ; Elevated blood sugar R73.9 and Acute vomiting R11.10 [facility] [address] [facility] [id number] [id number] Mar, Dental examination V72.2 IMMUNIZATIONS No Known Immunizations SOCIAL HISTORY Never Assessed REASON FOR VISIT Hydrocodone- 06/14 PLAN OF CARE VITAL SIGNS MEDICATIONS Medication Instructions Dosage Frequency Start Date End Date Duration Status Xanax 0.5 MG Orally Twice a day 1 tablet 12h Active [place] 7.5-325 MG Orally every 6 hrs 1 tablet as needed 6h May, Active RESULTS No Results PROCEDURES No Known [...]
--- OUTSIDE RECORDS SUMMARY | 2018-05-21 03:57 | XMS REPORT ---
Author Author JOSE NIGHAT [facility] Address [address] [place] [address] Care Team Providers Care Customer Sales Consultant Name Role Phone JOSE, NIGHAT Unavailable PROBLEMS Type Condition ICD9-CM Code [id number] Code Onset Dates Condition Status SNOMED Code Problem Essential hypertension I10 Active 30768212 Problem 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 Active 377596521 Problem Type 2 diabetes mellitus without complications E11.9 Active 627394777 Problem Memory changes R41.3 Active 858804791 Problem New daily persistent headache G44.52 Active 624739387335673 Problem Grief F43.20 Active 126662073 Problem Generalized anxiety disorder F41.1 Active 17331085 Problem Hypersomnia G47.10 Active 01563476 Problem Moderate episode of recurrent major depressive disorder F33.1 Active 778120030 Problem High serum estradiol R79.89 Active 131077309 Problem Unspecified ovarian cyst, left side N83.202 Active 76081054004507133 Problem Restless legs G25.81 Active 21507086 Problem Chronic pain syndrome G89.4 Active 586027449 Problem Unspecified ovarian cyst, right side N83.201 Active 06435578 Problem Chronic tension-type headache, intractable G44.221 Active 502422769 Problem History of vitamin D deficiency Z86.39 Active 600846032 Problem Obesity (BMI 30-39.9) E66.9 Active 678800857 ALLERGIES No Information ENCOUNTERS Encounter Location Date Diagnosis [facility] [address] [facility] [id number] [address] Feb, [facility] [address] [address] January, [facility] [id number] [address] January, Chronic pain syndrome G89.4 [place] [id number] [place] [address]32[address] January, Left upper quadrant abdominal tenderness without rebound tenderness R10.812 ; Complex cyst of left ovary N83.292 and Complex cyst of right ovary N83.291 [place] [id number] [place] [address]13[address] Dec, Syncope, unspecified syncope type R55 and Mass of soft tissue of right upper extremity R22.31 [place] [id number] [place] [address] 18660- 4452 Dec, [place] [address] [address] Dec, Moderate episode of recurrent major depressive disorder F33.1 ; Generalized anxiety disorder F41.1 and Grief F43.20 [place] [address] [address] Dec, Moderate episode of recurrent major depressive disorder F33.1 and Generalized anxiety disorder F41.1 [place] [id number] [place] [address]28- 7717 Dec, [place] [id number] [place] [address] 19730- 7980 Dec, Chronic pain syndrome G89.4 [place] [id number] [place] [address] 75673- 1424 Dec, [place] [id number] [place] [address] 17905- 1008 Nov, Moderate episode of recurrent major depressive disorder F33.1 and Generalized anxiety disorder F41.1 [place] [id number] [place] [address] 27100- 6719 Nov, [place] [id number] [place] [address] 36675- 2549 Nov, Chronic pain syndrome G89.4 ; Hypersomnia G47.10 ; Memory changes R41.3 ; New daily persistent headache G44.52 ; Post-menopausal Z78.0 and History of gastric surgery Z98.890 [place] [id number] [place] [address] 97671- 9931 Nov, [place] [id number] [place] [address] 32876- 7977 Nov, Chronic pain syndrome G89.4 [place] [address] [address]- 8695 Oct, Moderate episode of recurrent major depressive disorder F33.1 and Generalized anxiety disorder F41.1 [place] [address] [address]- 2777 Oct, Type 2 diabetes mellitus without complications E11.9 ; Essential hypertension I10 ; Restless legs G25.81 ; Chronic tension-type headache, intractable G44.221 ; Nasal congestion R09.81 ; 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 and Chronic pain syndrome G89.4 [place] [id number] [place] [address] 62261- 6768 Oct, Moderate episode of recurrent major depressive disorder F33.1 [place] [id number] [place] [address] 64507- 6357 Oct, [place] [id number] [place] [address] 12362- 8598 Sep, Moderate episode of recurrent major depressive disorder F33.1 and Generalized anxiety disorder F41.1 [place] [id number] [place] [address] 29842- 8762 Sep, Moderate episode of recurrent major depressive disorder F33.1 ; Generalized anxiety disorder F41.1 and Grief F43.20 [place] [id number] [place] [address] 41594- 9345 Sep, Moderate episode of recurrent major depressive disorder F33.1 [place] [id number] [place] [address] 66293- 2286 Sep, [place] [address] [address] Aug, Chronic pain syndrome G89.4 [place] [id number] [place] [address] 40796- 3311 Aug, [place] [id number] [place] [address] 85126- 9204 Aug, Moderate episode of recurrent major depressive disorder F33.1 ; Generalized anxiety disorder F41.1 and Grief F43.20 [place] [id number] [place] [address] 68888- 1174 Aug, [place] [id number] [place] [address] 42474- 8228 Aug, [place] [id number] [place] [address] 87539- 9481 Jul, Chronic pain syndrome G89.4 ; Positive depression screening Z13.89 ; Essential hypertension I10 ; Restless legs G25.81 ; Severe single current episode of major depressive disorder, 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 ; Anxiety F41.9 ; Chronic tension-type headache, intractable G44.221 ; Type 2 diabetes mellitus without complications E11.9 ; long 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 care pharmacist 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.4 ; Right elbow pain M25.521 and Family history of pancreatic cancer Z80.0 [place] [address] [address] Jun, Chronic pain syndrome G89.4 [place] [address] [address] May, Chronic pain syndrome G89.4 and Anxiety F41.9 [place] [id number] [place] [address] 20158- 7909 Apr, Diabetes E11.9 ; Obesity (BMI 30-39.9) E66.9 ; Severe single current episode of major depressive disorder, 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 ; Restless legs G25.81 ; Essential hypertension I10 ; Chronic tension- type headache, intractable G44.221 ; Anxiety F41.9 ; Chronic pain syndrome G89.4 and Nausea R11.0 [facility] [id number] [address] Mar, Diabetes E11.9 ; Obesity (BMI 30-39.9) E66.9 ; Severe single current episode of major depressive disorder, 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 ; Restless legs G25.81 ; Essential hypertension I10 ; Chronic tension- type headache, intractable G44.221 ; Anxiety F41.9 and Chronic pain syndrome G89.4 [facility] [id number] [address] Feb, Diaphoresis R61 ; Diabetes E11.9 ; Elevated blood sugar R73.9 and Acute vomiting R11.10 [facility] [id number] [id number] Mar, Dental examination V72.2 IMMUNIZATIONS No Known Immunizations SOCIAL HISTORY Never Assessed REASON FOR VISIT xanax refill PLAN OF CARE VITAL SIGNS MEDICATIONS Medication Instructions Dosage Frequency Start Date End Date Duration Status Xanax 0.5 MG Orally Twice a day 1 tablet 12h 30 days Active RESULTS No Results PROCEDURES [...]
--- OUTSIDE RECORDS SUMMARY | 2018-05-21 03:57 | XMS REPORT ---
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 Active 364906417 Problem Type 2 diabetes mellitus without complications E11.9 Active 881894019 Problem Memory changes R41.3 Active 703483211 Problem New daily persistent headache G44.52 Active 419916603172053 Problem Grief F43.20 Active 897004729 Problem Generalized anxiety disorder F41.1 Active 28785277 Problem Hypersomnia G47.10 Active 88199629 Problem Moderate episode of recurrent major depressive disorder F33.1 Active 130183982 Problem High serum estradiol R79.89 Active 104401541 Problem Unspecified ovarian cyst, left side N83.202 Active 47105126526304886 Problem Restless legs G25.81 Active 67059828 Problem Chronic pain syndrome G89.4 Active 959002660 Problem Unspecified ovarian cyst, right side N83.201 Active 25955475 Problem Chronic tension-type headache, intractable G44.221 Active 218036033 Problem History of vitamin D deficiency Z86.39 Active 194229393 Problem Obesity (BMI 30-39.9) E66.9 Active 531373439 ALLERGIES No Information ENCOUNTERS Encounter Location Date Diagnosis [facility] [address] [facility] [id number] [address] Feb, [facility] [address] [id number] [address] January, [facility] [id number] [address] January, Chronic pain syndrome G89.4 [place] [id number] [place] [address] 77604- 64[address] January, Left upper quadrant abdominal tenderness without rebound tenderness R10.812 ; Complex cyst of left ovary N83.292 and Complex cyst of right ovary N83.291 [place] [id number] [place] [address] 51251- 9307 Dec, Syncope, unspecified syncope type R55 and Mass of soft tissue of right upper extremity R22.31 [place] [id number] [place] [address] 60477- 2931 Dec, [place] [address] [address]10[address]- [address] Dec, Moderate episode of recurrent major depressive disorder F33.1 ; Generalized anxiety disorder F41.1 and Grief F43.20 [place] [address] 78744- 4204 Dec, Moderate episode of recurrent major depressive disorder F33.1 and Generalized anxiety disorder F41.1 [place] [id number] [place] [address] 10779- 2089 Dec, [place] [id number] [place] [address] 51024- 9478 Dec, Chronic pain syndrome G89.4 [place] [id number] [place] [address] 08996- 8741 Dec, [place] [id number] [place] [address] 80007- 3435 Nov, Moderate episode of recurrent major depressive disorder F33.1 and Generalized anxiety disorder F41.1 [place] [address] 54532- 4927 Nov, [place] [id number] [place] [address] 70252- 4668 Nov, Chronic pain syndrome G89.4 ; Hypersomnia G47.10 ; Memory changes R41.3 ; New daily persistent headache G44.52 ; Post-menopausal Z78.0 and History of gastric surgery Z98.890 [place] [id number] [place] [address] 91091- 0013 Nov, [place] [id number] [place] [address] 26715- 1270 Nov, Chronic pain syndrome G89.4 [place] [address] 49218- 6790 Oct, Moderate episode of recurrent major depressive disorder F33.1 and Generalized anxiety disorder F41.1 [place] [address] 59792- 3034 Oct, Type 2 diabetes mellitus without complications E11.9 ; Essential hypertension I10 ; Restless legs G25.81 ; Chronic tension-type headache, intractable G44.221 ; Nasal congestion R09.81 ; USP 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.4 and Chronic pain syndrome G89.4 [place] [id number] [place] [address] 35664- 1074 Oct, Moderate episode of recurrent major depressive disorder F33.1 [place] [id number] [place] [address] 75829- 3385 Oct, [place] [id number] [place] [address] 72076- 7805 Sep, Moderate episode of recurrent major depressive disorder F33.1 and Generalized anxiety disorder F41.1 [place] [id number] [place] [address] 89858- 3777 Sep, Moderate episode of recurrent major depressive disorder F33.1 ; Generalized anxiety disorder F41.1 and Grief F43.20 [place] [id number] [place] [address] 18079- 3021 Sep, Moderate episode of recurrent major depressive disorder F33.1 [place] [address] 68200- 0460 Sep, [place] [address] [address] 0204 Aug, Chronic pain syndrome G89.4 [place] [id number] [place] [address] 55079- 1146 Aug, [place] [id number] [place] [address] 45922- 8109 Aug, Moderate episode of recurrent major depressive disorder F33.1 ; Generalized anxiety disorder F41.1 and Grief F43.20 [place] [id number] [place] [address] 17502- 4912 Aug, [place] [id number] [place] [address] 23845- 3825 Aug, [place] [id number] [place] [address] 55125- 5869 Jul, Chronic pain syndrome G89.4 ; Positive depression screening Z13.89 ; Essential hypertension I10 ; Restless legs G25.81 ; Severe single current episode of major depressive disorder, 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 ; Anxiety F41.9 ; Chronic tension-type headache, intractable G44.221 ; Type 2 diabetes mellitus without complications E11.9 ; 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 ; Right elbow pain M25.521 and Family history of pancreatic cancer Z80.0 [place] [address] [place] [address] 98116- 1806 Jun, Chronic pain syndrome G89.4 [place] [address] [address] May, Chronic pain syndrome G89.4 and Anxiety F41.9 [place] [id number] [place] [address] 67711- 2993 Apr, Diabetes E11.9 ; Obesity (BMI 30-39.9) E66.9 ; Severe single current episode of major depressive disorder, 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 ; Restless legs G25.81 ; Essential hypertension I10 ; Chronic tension- type headache, intractable G44.221 ; Anxiety F41.9 ; Chronic pain syndrome G89.4 and Nausea R11.0 [facility] [id number] [address] Mar, Diabetes E11.9 ; Obesity (BMI 30-39.9) E66.9 ; Severe single current episode of major depressive disorder, 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 ; Restless legs G25.81 ; Essential hypertension I10 ; Chronic tension- type headache, intractable G44.221 ; Anxiety F41.9 and Chronic pain syndrome G89.4 [facility] [address] [facility] [id number] [address] Feb, Diaphoresis R61 ; Diabetes E11.9 ; Elevated blood sugar R73.9 and Acute vomiting R11.10 [facility] [address] [facility] [id number] [id number] Mar, Dental examination V72.2 IMMUNIZATIONS No Known Immunizations SOCIAL HISTORY Never Assessed REASON FOR VISIT Controlled Refill Request PLAN OF CARE VITAL SIGNS MEDICATIONS Medication Instructions Dosage Frequency Start Date End Date Duration Status Lyrica 50 mg 1 capsule by mouth daily x3 days then BID Daily Sep, Active [place] 5-325 MG 1 po tid x 7 days then bid x 7 days then daily x 7 days Sep, Active RESULTS No Results PROCEDURES No [...]
--- OUTSIDE RECORDS SUMMARY | 2018-05-21 03:57 | XMS REPORT ---
Author Author VINAY Rooney Organization [facility] Address [address] [place] [address] Care Team Providers Care Auto Hiker Name Role Phone VINAY Rooney Unavailable PROBLEMS Type Condition ICD9-CM Code VNP66-[id number] Code Onset Dates Condition Status SNOMED Code Problem Essential hypertension I10 Active 53960786 Problem correction 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.4 Active 931481787 Problem Type 2 diabetes mellitus without complications E11.9 Active 344297759 Problem Memory changes R41.3 Active 311328165 Problem New daily persistent headache G44.52 Active 887178768976269 Problem Grief F43.20 Active 526576515 Problem Generalized anxiety disorder F41.1 Active 37222562 Problem Hypersomnia G47.10 Active 15364748 Problem Moderate episode of recurrent major depressive disorder F33.1 Active 578588198 Problem High serum estradiol R79.89 Active 852038329 Problem Unspecified ovarian cyst, left side N83.202 Active 75274458352142078 Problem Restless legs G25.81 Active 51587783 Problem Chronic pain syndrome G89.4 Active 946542588 Problem Unspecified ovarian cyst, right side N83.201 Active 00932951 Problem Chronic tension-type headache, intractable G44.221 Active 647130740 Problem History of vitamin D deficiency Z86.39 Active 543098204 Problem Obesity (BMI 30-39.9) E66.9 Active 894045836 ALLERGIES No Known Allergies ENCOUNTERS Encounter Location Date Diagnosis [facility] [id number], [place] [address] January, [facility] [address], [place] [address] January, Chronic pain syndrome G89.4 [facility] [address] [id number], [place] [address] January, Left upper quadrant abdominal tenderness without rebound tenderness R10.812 ; Complex cyst of left ovary N83.292 and Complex cyst of right ovary N83.291 [place] [id number] [place] [address] Dec, Syncope, unspecified syncope type R55 and Mass of soft tissue of right upper extremity R22.31 [place] [address] [address] Dec, [place] [id number] [place] [address]7722- 7976 Dec, Moderate episode of recurrent major depressive disorder F33.1 ; Generalized anxiety disorder F41.1 and Grief F43.20 [place] [id number] [place] [address] 20792- 7595 Dec, Moderate episode of recurrent major depressive disorder F33.1 and Generalized anxiety disorder F41.1 [place] [id number] [place] [address] 72444- 5[address] Dec, [place] [id number] [place] [address] 57688- 4588 Dec, Chronic pain syndrome G89.4 [place] [id number] [place] [address] 45540- 6573 Dec, [place] [id number] [place] [address] 11651- 2764 Nov, Moderate episode of recurrent major depressive disorder F33.1 and Generalized anxiety disorder F41.1 [place] [id number] [place] [address] 22375- 8718 Nov, [place] [id number] [place] [address] 92260- 1966 Nov, Chronic pain syndrome G89.4 ; Hypersomnia G47.10 ; Memory changes R41.3 ; New daily persistent headache G44.52 ; Post-menopausal Z78.0 and History of gastric surgery Z98.890 [place] [address], [place] [address] Nov, [place] [id number] [place] [address] 96664- 7306 Nov, Chronic pain syndrome G89.4 [place] [id number] [place] [address] 20743- 7006 Oct, Moderate episode of recurrent major depressive disorder F33.1 and Generalized anxiety disorder F41.1 [place] [address] [place] [address] 91328- 9350 Oct, Type 2 diabetes mellitus without complications E11.9 ; Essential hypertension I10 ; Restless legs G25.81 ; Chronic tension-type headache, intractable G44.221 ; Nasal congestion R09.81 ; correction 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.4 and Chronic pain syndrome G89.4 [place] [address] [place] [address] 41676- 8879 Oct, Moderate episode of recurrent major depressive disorder F33.1 [place] [address] [place] [address] 40057- 0438 Oct, [place] [address] [place] [address] 17772- 0984 Sep, Moderate episode of recurrent major depressive disorder F33.1 and Generalized anxiety disorder F41.1 [place] [address] [place] [address] 54257- 1549 Sep, Moderate episode of recurrent major depressive disorder F33.1 ; Generalized anxiety disorder F41.1 and Grief F43.20 [place] [address] [place] [address] 54840- 4877 Sep, Moderate episode of recurrent major depressive disorder F33.1 [place] [address] [place] [address] 56177- 4446 Sep, [place] [id number] [place] [address] 88968- 8599 Aug, Chronic pain syndrome G89.4 [place] [address] [place] [address] 56032- 3389 Aug, [place] [id number] [place] [address] 75643- 9644 Aug, Moderate episode of recurrent major depressive disorder F33.1 ; Generalized anxiety disorder F41.1 and Grief F43.20 [place] [id number] [place] [address] 05469- 8663 Aug, [place] [id number] [place] [address] 01016- 2457 Aug, [place] [id number] [place] [address] 17404- 2151 Jul, Chronic pain syndrome G89.4 ; Positive depression screening Z13.89 ; Essential hypertension I10 ; Restless legs G25.81 ; Severe single current episode of major depressive disorder, 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 ; Anxiety F41.9 ; Chronic tension-type headache, intractable G44.221 ; Type 2 diabetes mellitus without complications E11.9 ; 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 ; Right elbow pain M25.521 and Family history of pancreatic cancer Z80.0 [place] [id number] [place] [address] 78406- 6071 Jun, Chronic pain syndrome G89.4 [place] [id number] [place] [address] 83270- 5330 May, Chronic pain syndrome G89.4 and Anxiety F41.9 [place] [id number] [place] [address] 18846- 9867 Apr, Diabetes E11.9 ; Obesity (BMI 30-39.9) E66.9 ; Severe single current episode of major depressive disorder, 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 ; Restless legs G25.81 ; Essential hypertension I10 ; Chronic tension- type headache, intractable G44.221 ; Anxiety F41.9 ; Chronic pain syndrome G89.4 and Nausea R11.0 [facility] [address] [facility] [id number] [address] Mar, Diabetes E11.9 ; Obesity (BMI 30-39.9) E66.9 ; Severe single current episode of major depressive disorder, 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 ; Restless legs G25.81 ; Essential hypertension I10 ; Chronic tension- type headache, intractable G44.221 ; Anxiety F41.9 and Chronic pain syndrome G89.[address] [facility] [address] [facility] [id number] [address] Feb, Diaphoresis R61 ; Diabetes E11.9 ; Elevated blood sugar R73.9 and Acute vomiting R11.10 [facility] [address] [facility] [id number] [id number] Mar, Dental examination V72.2 IMMUNIZATIONS No Known Immunizations SOCIAL HISTORY Never Assessed REASON FOR VISIT Diabetes fu -- molly johnson, having nausea PLAN OF CARE Activity Details Follow Up 3 Months Reason:dm VITAL SIGNS Height 65 in 2017-05-07 Weight 239.0 lbs 2017-05-07 Temperature 97.7 degrees Fahrenheit 2017-05-07 BMI 39.77 kg/m2 2017-05-07 Blood pressure systolic 138 mmHg 2017-05-07 Blood pressure diastolic 76 mmHg 2017-05-07 MEDICATIONS Medication Instructions Dosage Frequency Start Date End Date Duration Status Xanax 0.5 MG Orally Twice a day 1 tablet 12h Active Metformin HCl 1000 MG Orally Twice a day 1 tablet with meals 12h Active Duloxetine HCl 60 mg Orally Once a day 1 capsule 24h Active Zofran 4 MG Orally 3 times a day 1 tablets 8h Apr, 10 days Active Cyclobenzaprine HCl 10 mg Orally 2 times a day 1 tablet as needed 12h Active Phentermine HCl 37.5 MG Orally Once a day 1 capsule 24h Active Lantus SoloStar 100 UNIT/ML Subcutaneous at bedtime 14 units Active [place] 7.5-325 MG Orally every 6 hrs 1 tablet as needed 6h Apr, Active Lisinopril 10 mg Orally Once a day 1 tablet 24h Active Januvia 100 mg Orally Once a day 1 tablet 24h Mar, Active Topamax 25 MG Orally once per day x 7 then bid 1 tablet Mar, Active Ropinirole HCl 0.5 MG Orally at bedtime 1-2 tablets Active RESULTS No Results PROCEDURES Procedure Date Ordered Result Body Site COMPLETE CBC W/AUTO DIFF WBC May 07, 2017 LIPID PANEL May 07, 2017 COMPREHEN METABOLIC PANEL May 07, 2017 VENIPUNCT, ROUTINE* May 07, 2017 INSTRUCTIONS MEDICATIONS ADMINISTERED No Known Medications [...]
--- OUTSIDE RECORDS SUMMARY | 2018-05-21 03:57 | XMS REPORT ---
Author Author NIGHAT GARCIA [facility] Address [address] [place] [address] Care Team Providers Care Instructor Nurse Name Role Phone JOSE, NIGHAT Unavailable PROBLEMS Type Condition ICD9-CM Code [id number] Code Onset Dates Condition Status SNOMED Code Problem Essential hypertension I10 Active 22610928 Problem 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 Active 534855718 Problem Type 2 diabetes mellitus without complications E11.9 Active 223948061 Problem Memory changes R41.3 Active 049429893 Problem New daily persistent headache G44.52 Active 162205627623520 Problem Grief F43.20 Active 780951120 Problem Generalized anxiety disorder F41.1 Active 34229791 Problem Hypersomnia G47.10 Active 86450197 Problem Moderate episode of recurrent major depressive disorder F33.1 Active 763760001 Problem High serum estradiol R79.89 Active 341297202 Problem Unspecified ovarian cyst, left side N83.202 Active 67888579363229857 Problem Restless legs G25.81 Active 67182001 Problem Chronic pain syndrome G89.4 Active 470729370 Problem Unspecified ovarian cyst, right side N83.201 Active 52419034 Problem Chronic tension-type headache, intractable G44.221 Active 285283061 Problem History of vitamin D deficiency Z86.39 Active 730542443 Problem Obesity (BMI 30-39.9) E66.9 Active 906265247 ALLERGIES No Known Allergies ENCOUNTERS Encounter Location Date Diagnosis [facility] [address] [facility] [id number], [place] [address] January, [facility] [id number], [place] [address] January, Chronic pain syndrome G89.4 [facility] [address] [facility] [id number], [place] [address] January, Left upper quadrant abdominal tenderness without rebound tenderness R10.812 ; Complex cyst of left ovary N83.292 and Complex cyst of right ovary N83.291 [place] [address] [address] Dec, Syncope, unspecified syncope type R55 and Mass of soft tissue of right upper extremity R22.31 [place] [address] 7[address]38- 6[address] Dec, [place] [address] 64697- 8204 Dec, Moderate episode of recurrent major depressive disorder F33.1 ; Generalized anxiety disorder F41.1 and Grief F43.[address] [address]- [address] Dec, Moderate episode of recurrent major depressive disorder F33.1 and Generalized anxiety disorder F41.1 [place] [address] 25676- [address] Dec, [place] [address] 46[address]- [address] Dec, Chronic pain syndrome G89.4 [place] [id number] [place] [address] 49243- 9741 Dec, [place] [id number] [place] [address] 23377- 9431 Nov, Moderate episode of recurrent major depressive disorder F33.1 and Generalized anxiety disorder F41.1 [place] [id number] [place] [address] 89031- 8609 Nov, [place] [address] 84[address]- [address] Nov, Chronic pain syndrome G89.4 ; Hypersomnia G47.10 ; Memory changes R41.3 ; New daily persistent headache G44.52 ; Post-menopausal Z78.0 and History of gastric surgery Z98.890 [place] [id number] [place] [address] 36494- 9999 Nov, [facility] [id number] [place] [address] 62259- 5746 Nov, Chronic pain syndrome G89.4 [facility] [id number] [place] [address] 69263- 4853 Oct, Moderate episode of recurrent major depressive disorder F33.1 and Generalized anxiety disorder F41.1 [facility] [id number] [place] [address] 76449- 3099 Oct, Type 2 diabetes mellitus without complications E11.9 ; Essential hypertension I10 ; Restless legs G25.81 ; Chronic tension-type headache, intractable G44.221 ; Nasal congestion R09.81 ; 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 and Chronic pain syndrome G89.4 [place] [id number] [place] [address] 91755- 4294 Oct, Moderate episode of recurrent major depressive disorder F33.1 [place] [id number] [place] [address] 41049- 3785 Oct, [place] [id number] [place] [address] 21809- 2328 Sep, Moderate episode of recurrent major depressive disorder F33.1 and Generalized anxiety disorder F41.1 [place] [id number] [place] [address] 77135- 4023 Sep, Moderate episode of recurrent major depressive disorder F33.1 ; Generalized anxiety disorder F41.1 and Grief F43.20 [place] [id number] [place] [address] 00400- 0124 Sep, Moderate episode of recurrent major depressive disorder F33.1 [facility] [id number] [place] [address] 50305- 3612 Sep, [place] [id number] [place] [address] 89718- 6317 Aug, Chronic pain syndrome G89.4 [place] [id number] [place] [address] 43526- 2126 Aug, [place] [id number] [place] [address] 11447- 8630 Aug, Moderate episode of recurrent major depressive disorder F33.1 ; Generalized anxiety disorder F41.1 and Grief F43.[address] [address]- 6[address] Aug, [place] [id number] [place] [address] 71720- 7178 Aug, [place] [id number] [place] [address] 13063- 1926 Jul, Chronic pain syndrome G89.4 ; Positive depression screening Z13.89 ; Essential hypertension I10 ; Restless legs G25.81 ; Severe single current episode of major depressive disorder, 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 ; Anxiety F41.9 ; Chronic tension-type headache, intractable G44.221 ; Type 2 diabetes mellitus without complications E11.9 ; 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 ; Right elbow pain M25.521 and Family history of pancreatic cancer Z80.0 [place] [id number] [place] [address] 19464- 0768 Jun, Chronic pain syndrome G89.4 [place] [id number] [place] [address] 23493- 0914 May, Chronic pain syndrome G89.4 and Anxiety F41.9 [place] [id number] [place] [address] 18670- 9519 Apr, Diabetes E11.9 ; Obesity (BMI 30-39.9) E66.9 ; Severe single current episode of major depressive disorder, 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 ; Restless legs G25.81 ; Essential hypertension I10 ; Chronic tension- type headache, intractable G44.221 ; Anxiety F41.9 ; Chronic pain syndrome G89.4 and Nausea R11.[id number] [place] [address] Mar, Diabetes E11.9 ; Obesity (BMI 30-39.9) E66.9 ; Severe single current episode of major depressive disorder, 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 ; Restless legs G25.81 ; Essential hypertension I10 ; Chronic tension- type headache, intractable G44.221 ; Anxiety F41.9 and Chronic pain syndrome G89.4 [facility] [address] [facility] [id number] [address] Feb, Diaphoresis R61 ; Diabetes E11.9 ; Elevated blood sugar R73.9 and Acute vomiting R11.10 [facility] [address] [facility] [id number] [id number] Mar, Dental examination V72.2 IMMUNIZATIONS No Known Immunizations SOCIAL HISTORY Never Assessed REASON FOR VISIT intake-Roxane HUANG PLAN OF CARE Activity Details Follow Up 4 Weeks Reason: f/u VITAL SIGNS Height 65 in 2017-09-01 Weight 236.3 lbs 2017-09-01 Heart Rate 84 bpm 2017-09-01 Respiratory Rate 18 2017-09-01 BMI 39.32 kg/m2 2017-09-01 Blood pressure systolic 114 mmHg 2017-09-01 Blood pressure diastolic 82 mmHg 2017-09-01 MEDICATIONS Medication Instructions Dosage Frequency Start Date End Date Duration Status Cyclobenzaprine HCl 10 mg Orally 2 times a day 1 tablet as needed 12h Sep, 28 days Active Zofran 4 MG Orally 3 times a day 1 tablets 8h 18 Apr, 2017 10 days Active Metformin HCl 1000 MG TAKE ONE TABLET BY MOUTH TWICE DAILY WITH MEALS 30 Active Lantus SoloStar 100 UNIT/ML Subcutaneous at bedtime 20 units Active Xanax 0.5 MG Orally Twice a day 1 tablet 12h Active Norel AD 4-10-325 MG Active Duloxetine HCl 60 mg Orally Once a day 1 capsule 24h Active Cymbalta 30 MG Orally 3 times a day 1 capsule 8h Aug, 30 day(s ) Active Voltaren 1 % Transdermal 3 times a day, PRN apply 2 grams to elbow Aug Not-Taking Topamax 25 MG Orally Once a day 2 tablets in the evening 24h 30 days Active Gabapentin 100 mg Orally 2 times a day as needed for anxiety 1 capsule Aug, 30 day(s) Active Januvia 100 mg Orally Once a day 1 tablet 24h 30 Active Bronson 7.5-325 MG Orally every 6 hrs 1 tablet as needed 6h Jul, Active Ropinirole HCl 0.5 MG Orally Once a day 1-2 tablet 1 to 3 hours before bedtime 24h Active Lisinopril 10 mg Orally Once a day TAKE ONE TABLET BY MOUTH ONCE DAILY 24h 30 Active RESULTS No Results PROCEDURES No [...]
--- OUTSIDE RECORDS SUMMARY | 2018-05-21 03:58 | XMS REPORT ---
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 Active 504075884 Problem Type 2 diabetes mellitus without complications E11.9 Active 345870662 Problem Memory changes R41.3 Active 091783414 Problem New daily persistent headache G44.52 Active 065539291892183 Problem Grief F43.20 Active 647170598 Problem Generalized anxiety disorder F41.1 Active 55854763 Problem Hypersomnia G47.10 Active 68116293 Problem Moderate episode of recurrent major depressive disorder F33.1 Active 807539041 Problem High serum estradiol R79.89 Active 890129836 Problem Unspecified ovarian cyst, left side N83.202 Active 16150764923342358 Problem Restless legs G25.81 Active 10794331 Problem Chronic pain syndrome G89.4 Active 245688276 Problem Unspecified ovarian cyst, right side N83.201 Active 94118145 Problem Chronic tension-type headache, intractable G44.221 Active 916681591 Problem History of vitamin D deficiency Z86.39 Active 066063641 Problem Obesity (BMI 30-39.9) E66.9 Active 649336034 ALLERGIES No Information ENCOUNTERS Encounter Location Date Diagnosis [facility] [address] [facility] [id number] [address] January, [facility] [address] [place] [id number] [address] January, Chronic pain syndrome G89.4 [facility] [address] [facility] [id number] [address] January, Left upper quadrant abdominal tenderness without rebound tenderness R10.812 ; Complex cyst of left ovary N83.292 and Complex cyst of right ovary N83.291 [place] [address] [address] Dec, Syncope, unspecified syncope type R55 and Mass of soft tissue of right upper extremity R22.31 [place] [address] [address]- 5665 Dec, [place] [address] [address] Dec, Moderate episode of recurrent major depressive disorder F33.1 ; Generalized anxiety disorder F41.1 and Grief F43.[address] [address] Dec, Moderate episode of recurrent major depressive disorder F33.1 and Generalized anxiety disorder F41.1 [place] [address] [address]- [address] Dec, [place] [address] [address]64- 5[address] Dec, Chronic pain syndrome G89.4 [place] [address] [place] [id number] [place] [address] 90024- 5087 Dec, [place] [address] [place] [id number] [place] [address] 60783- 3648 Nov, Moderate episode of recurrent major depressive disorder F33.1 and Generalized anxiety disorder F41.1 [place] [address] [place] [id number] [place] [address] 83936- 4218 Nov, [place] [address] 5[address]98- 7068 Nov, Chronic pain syndrome G89.4 ; Hypersomnia G47.10 ; Memory changes R41.3 ; New daily persistent headache G44.52 ; Post-menopausal Z78.0 and History of gastric surgery Z98.890 [place] [address] [place] [id number] [place] [address] 45214- 1240 Nov, [facility] [address] [place] [id number] [place] [address] 11938- 6117 Nov, Chronic pain syndrome G89.4 [facility] [address] [place] [address] [id number] [place] [address] 33608- 2286 Oct, Moderate episode of recurrent major depressive disorder F33.1 and Generalized anxiety disorder F41.1 [facility] [address] [place] [id number] [place] [address] 06542- 7140 Oct, Type 2 diabetes mellitus without complications E11.9 ; Essential hypertension I10 ; Restless legs G25.81 ; Chronic tension-type headache, intractable G44.221 ; Nasal congestion R09.81 ; long-term 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.4 and Chronic pain syndrome G89.4 [place] [address] [place] [id number] [place] [address] 05216- 1531 Oct, Moderate episode of recurrent major depressive disorder F33.1 [place] [address] [place] [id number] [place] [address] 10016- 0857 Oct, [place] [address] [place] [id number] [place] [address] 22120- 6446 Sep, Moderate episode of recurrent major depressive disorder F33.1 and Generalized anxiety disorder F41.1 [place] [address] [place] [id number] [place] [address] 20504- 2046 Sep, Moderate episode of recurrent major depressive disorder F33.1 ; Generalized anxiety disorder F41.1 and Grief F43.20 [place] [address] [place] [id number] [place] [address] 45936- 3197 Sep, Moderate episode of recurrent major depressive disorder F33.1 [facility] [address] [place] [id number] [place] [address] 58727- 1724 Sep, [place] [address] [place] [id number] [place] [address] 17611- 3655 Aug, Chronic pain syndrome G89.4 [place] [address] [place] [id number] [place] [address] 79229- 7552 Aug, [place] [address] [place] [id number] [place] [address] 84699- 8622 Aug, Moderate episode of recurrent major depressive disorder F33.1 ; Generalized anxiety disorder F41.1 and Grief F43.[address] 27819- 7791 Aug, [place] [address] [place] [id number] [place] [address] 87548- 1243 Aug, [place] [address] [place] [id number] [place] [address] 09891- 0397 Jul, Chronic pain syndrome G89.4 ; Positive [...] and Family history of pancreatic cancer Z80.0 [place] [address] [place] [id number] [place] [address] 02156- 3389 Jun, Chronic pain syndrome G89.4 [place] [address] [place] [id number] [place] [address] 60226- 5516 May, Chronic pain syndrome G89.4 and Anxiety F41.9 [place] [address] [place] [id number] [place] [address] 32567- 9269 Apr, Diabetes E11.9 ; Obesity (BMI 30-39.9) E66.9 ; Severe single current episode of major depressive disorder, 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 ; Restless legs G25.81 ; Essential hypertension I10 ; Chronic tension- type headache, intractable G44.221 ; Anxiety F41.9 ; Chronic pain syndrome G89.4 and Nausea R11.[address] [id number] [place] [address] Mar, Diabetes E11.9 ; Obesity (BMI 30-39.9) E66.9 ; Severe single current episode of major depressive disorder, 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 ; Restless legs G25.81 ; Essential hypertension I10 ; Chronic tension- type headache, intractable G44.221 ; Anxiety F41.9 and Chronic pain syndrome G89.4 [facility] [address] [facility] [id number] [address] [address] Feb, Diaphoresis R61 ; Diabetes E11.9 ; Elevated blood sugar R73.9 and Acute vomiting R11.10 [facility] [address] [place] [id number] [id number] Mar, Dental examination V72.2 IMMUNIZATIONS No Known Immunizations SOCIAL HISTORY Never Assessed REASON FOR VISIT Medication PLAN OF CARE VITAL SIGNS MEDICATIONS Medication Instructions Dosage Frequency Start Date End Date Duration Status Voltaren 1 % Transdermal 3 times a day, PRN apply 2 grams to affected area Aug, Active RESULTS No Results PROCEDURES No Known [...]
--- OUTSIDE RECORDS SUMMARY | 2018-05-21 03:58 | XMS REPORT ---
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 Active 041306038 Problem Type 2 diabetes mellitus without complications E11.9 Active 109595691 Problem Memory changes R41.3 Active 679445930 Problem New daily persistent headache G44.52 Active 082720755133803 Problem Grief F43.20 Active 693926290 Problem Generalized anxiety disorder F41.1 Active 85977836 Problem Hypersomnia G47.10 Active 85078287 Problem Moderate episode of recurrent major depressive disorder F33.1 Active 680808214 Problem High serum estradiol R79.89 Active 850060734 Problem Unspecified ovarian cyst, left side N83.202 Active 44542075918263316 Problem Restless legs G25.81 Active 71769622 Problem Chronic pain syndrome G89.4 Active 279751055 Problem Unspecified ovarian cyst, right side N83.201 Active 48359560 Problem Chronic tension-type headache, intractable G44.221 Active 121441022 Problem History of vitamin D deficiency Z86.39 Active 817134353 Problem Obesity (BMI 30-39.9) E66.9 Active 029237290 ALLERGIES No Information ENCOUNTERS Encounter Location Date Diagnosis [facility] [address] [facility] [id number] [address] Feb, [facility] [address] [place] [id number] [address] January, [facility] [address] [place] [id number] [address] January, Chronic pain syndrome G89.4 [place] [address] [place] [id number] [place] [address] 66968- 2740 January, Left upper quadrant abdominal tenderness without rebound tenderness R10.812 ; Complex cyst of left ovary N83.292 and Complex cyst of right ovary N83.291 [place] [address] [place] [id number] [place] [address] 81074- 9850 Dec, Syncope, unspecified syncope type R55 and Mass of soft tissue of right upper extremity R22.31 [place] [address] [place] [id number] [place] [address] 67590- 7872 Dec, [place] [address] 398942- 8084 Dec, Moderate episode of recurrent major depressive disorder F33.1 ; Generalized anxiety disorder F41.1 and Grief F43.20 [place] [address] 18577- 0804 Dec, Moderate episode of recurrent major depressive disorder F33.1 and Generalized anxiety disorder F41.1 [place] [address] [place] [id number] [place] [address] 17559- 3684 Dec, [place] [address] [place] [id number] [place] [address] 82046- 1924 Dec, Chronic pain syndrome G89.4 [place] [address] [place] [id number] [place] [address] 96851- 9961 Dec, [place] [address] [place] [id number] [place] [address] 06023- 8356 Nov, Moderate episode of recurrent major depressive disorder F33.1 and Generalized anxiety disorder F41.1 [place] [address] 44105- 4262 Nov, [place] [address] [place] [id number] [place] [address] 56684- 8142 Nov, Chronic pain syndrome G89.4 ; Hypersomnia G47.10 ; Memory changes R41.3 ; New daily persistent headache G44.52 ; Post-menopausal Z78.0 and History of gastric surgery Z98.890 [place] [address] [place] [address] [place] [address] 88576- 9251 Nov, [place] [address] [place] [id number] [place] [address] 51699- 9897 Nov, Chronic pain syndrome G89.4 [place] [address] 04274- 8849 Oct, Moderate episode of recurrent major depressive disorder F33.1 and Generalized anxiety disorder F41.1 [place] [address] 30464- 1913 Oct, Type 2 diabetes mellitus without complications E11.9 ; Essential hypertension I10 ; Restless legs G25.81 ; Chronic tension-type headache, intractable G44.221 ; Nasal congestion R09.81 ; halfway 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.4 and Chronic pain syndrome G89.4 [place] [address] [place] [id number] [place] [address] 95594- 2871 Oct, Moderate episode of recurrent major depressive disorder F33.1 [place] [address] [place] [id number] [place] [address] 62455- 5972 Oct, [place] [address] [place] [id number] [place] [address] 37343- 0194 Sep, Moderate episode of recurrent major depressive disorder F33.1 and Generalized anxiety disorder F41.1 [place] [address] [place] [id number] [place] [address] 05195- 2657 Sep, Moderate episode of recurrent major depressive disorder F33.1 ; Generalized anxiety disorder F41.1 and Grief F43.20 [place] [address] [place] [id number] [place] [address] 42805- 1092 Sep, Moderate episode of recurrent major depressive disorder F33.1 [place] [address] 08455- 7591 Sep, [place] [address] [address]- 9637 Aug, Chronic pain syndrome G89.4 [place] [address] [place] [id number] [place] [address] 13841- 7934 Aug, [place] [address] [place] [id number] [place] [address] 20882- 9912 Aug, Moderate episode of recurrent major depressive disorder F33.1 ; Generalized anxiety disorder F41.1 and Grief F43.20 [place] [address] [place] [id number] [place] [address] 52314- 5740 Aug, [place] [address] [place] [id number] [place] [address] 99494- 4087 Aug, [place] [address] [place] [id number] [place] [address] 90571- 9840 Jul, Chronic pain syndrome G89.4 ; Positive depression screening Z13.89 ; Essential hypertension I10 ; Restless legs G25.81 ; Severe single current episode of major depressive disorder, 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 ; Anxiety F41.9 ; Chronic tension-type headache, intractable G44.221 ; Type 2 diabetes mellitus without complications E11.9 ; 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.4 ; Right elbow pain M25.521 and Family history of pancreatic cancer Z80.0 [place] [address] [place] [address] 14873- 1066 Jun, Chronic pain syndrome G89.4 [place] [address] [address]- 6687 May, Chronic pain syndrome G89.4 and Anxiety F41.9 [place] [address] [place] [id number] [place] [address] 14261- 1960 Apr, Diabetes E11.9 ; Obesity (BMI 30-39.9) E66.9 ; Severe single current episode of major depressive disorder, 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 ; Restless legs G25.81 ; Essential hypertension I10 ; Chronic tension- type headache, intractable G44.221 ; Anxiety F41.9 ; Chronic pain syndrome G89.4 and Nausea R11.0 [facility] [address] [place] [id number] [address]- 2668 Mar, Diabetes E11.9 ; Obesity (BMI 30-39.9) E66.9 ; Severe single current episode of major depressive disorder, 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 ; Restless legs G25.81 ; Essential hypertension I10 ; Chronic tension- type headache, intractable G44.221 ; Anxiety F41.9 and Chronic pain syndrome G89.4 [facility] [address] [facility] [id number] [address] Feb, Diaphoresis R61 ; Diabetes E11.9 ; Elevated blood sugar R73.9 and Acute vomiting R11.10 [facility] [address] [place] [address] [id number] [id number] Mar, Dental examination V72.2 IMMUNIZATIONS No Known Immunizations SOCIAL HISTORY Never Assessed REASON FOR VISIT Requests return call PLAN OF CARE VITAL SIGNS MEDICATIONS Unknown [...]
--- OUTSIDE RECORDS SUMMARY | 2018-05-21 03:58 | XMS REPORT ---
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 746114772 Problem Type 2 diabetes mellitus without complications E11.9 Active 697999817 Problem Memory changes R41.3 Active 839611495 Problem New daily persistent headache G44.52 Active 546253572811501 Problem Grief F43.20 Active 921525948 Problem Generalized anxiety disorder F41.1 Active 23145771 Problem Hypersomnia G47.10 Active 40743104 Problem Moderate episode of recurrent major depressive disorder F33.1 Active 868134130 Problem High serum estradiol R79.89 Active 033753788 Problem Unspecified ovarian cyst, left side N83.202 Active 05941286024772237 Problem Restless legs G25.81 Active 03618912 Problem Chronic pain syndrome G89.4 Active 433800932 Problem Unspecified ovarian cyst, right side N83.201 Active 89525421 Problem Chronic tension-type headache, intractable G44.221 Active 554825436 Problem History of vitamin D deficiency Z86.39 Active 632850559 Problem Obesity (BMI 30-39.9) E66.9 Active 888487135 ALLERGIES No Information ENCOUNTERS Encounter Location Date Diagnosis [facility] [address] [facility] [id number], [place] [address] January, [facility] [address] [place] [id number], [place] [address] January, Chronic pain syndrome G89.4 [facility] [address] [facility] [id number], [place] [address] January, Left upper quadrant abdominal tenderness without rebound tenderness R10.812 ; Complex cyst of left ovary N83.292 and Complex cyst of right ovary N83.291 [place] [address] 17294- 3693 Dec, Syncope, unspecified syncope type R55 and Mass of soft tissue of right upper extremity R22.31 [place] [address] 05160- 7587 Dec, [place] [address] 01201- 0526 Dec, Moderate episode of recurrent major depressive disorder F33.1 ; Generalized anxiety disorder F41.1 and Grief F43.[address] 6[address]15- 3178 Dec, Moderate episode of recurrent major depressive disorder F33.1 and Generalized anxiety disorder F41.1 [place] [address] 00003- 4821 Dec, [place] [address] 98329- 4236 Dec, Chronic pain syndrome G89.4 [place] [address] [place] [id number] [place] [address] 50352- 0443 Dec, [place] [address] [place] [id number] [place] [address] 25340- 4932 Nov, Moderate episode of recurrent major depressive disorder F33.1 and Generalized anxiety disorder F41.1 [place] [address] [place] [address] [place] [address] 45023- 4062 Nov, [place] [address] 63145- 9419 Nov, Chronic pain syndrome G89.4 ; Hypersomnia G47.10 ; Memory changes R41.3 ; New daily persistent headache G44.52 ; Post-menopausal Z78.0 and History of gastric surgery Z98.890 [place] [address] [place] [address] [place] [address] 79994- 1344 Nov, [facility] [address] [place] [id number] [place] [address] 72317- 7319 Nov, Chronic pain syndrome G89.4 [facility] [address] [place] [id number] [place] [address] 58677- 4430 Oct, Moderate episode of recurrent major depressive disorder F33.1 and Generalized anxiety disorder F41.1 [facility] [address] [place] [id number] [place] [address] 72909- 0965 Oct, Type 2 diabetes mellitus without complications E11.9 ; Essential hypertension I10 ; Restless legs G25.81 ; Chronic tension-type headache, intractable G44.221 ; Nasal congestion R09.81 ; [facility] 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.4 and Chronic pain syndrome G89.4 [place] [address] [place] [address] [place] [address] 84177- 1393 Oct, Moderate episode of recurrent major depressive disorder F33.1 [place] [address] [place] [address] [place] [address] 05275- 4707 Oct, [place] [address] [place] [address] [place] [address] 64681- 7474 Sep, Moderate episode of recurrent major depressive disorder F33.1 and Generalized anxiety disorder F41.1 [place] [address] [place] [id number] [place] [address] 04401- 1040 Sep, Moderate episode of recurrent major depressive disorder F33.1 ; Generalized anxiety disorder F41.1 and Grief F43.20 [place] [address] [place] [address] [place] [address] 15227- 0892 Sep, Moderate episode of recurrent major depressive disorder F33.1 [facility] [address] [place] [id number] [place] [address] 30676- 7880 Sep, [place] [address] [place] [id number] [place] [address] 38039- 8034 Aug, Chronic pain syndrome G89.4 [place] [address] [place] [id number] [place] [address] 50883- 0375 Aug, [place] [address] [place] [address] [place] [address] 83181- 3094 Aug, Moderate episode of recurrent major depressive disorder F33.1 ; Generalized anxiety disorder F41.1 and Grief F43.[address] 40386- 5634 Aug, [place] [address] [place] [id number] [place] [address] 16902- 8407 Aug, [place] [address] [place] [id number] [place] [address] 81699- 2716 Jul, Chronic pain syndrome G89.4 ; Positive depression screening Z13.89 ; Essential hypertension I10 ; Restless legs G25.81 ; Severe single current episode of major depressive disorder, 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 ; Anxiety F41.9 ; Chronic tension-type headache, intractable G44.221 ; Type 2 diabetes mellitus without complications E11.9 ; [facility] 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.4 ; Right elbow pain M25.521 and Family history of pancreatic cancer Z80.0 [place] [address] [place] [id number] [place] [address] 28427- 7685 Jun, Chronic pain syndrome G89.4 [place] [address] [place] [address] [place] [address] 16595- 5488 May, Chronic pain syndrome G89.4 and Anxiety F41.9 [place] [address] [place] [address] [place] [address] 38174- 9349 Apr, Diabetes E11.9 ; Obesity (BMI 30-39.9) E66.9 ; Severe single current episode of major depressive disorder, 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 ; Restless legs G25.81 ; Essential hypertension I10 ; Chronic tension- type headache, intractable G44.221 ; Anxiety F41.9 ; Chronic pain syndrome G89.4 and Nausea R11.[address] [id number] [place] [address]- [address]21 Mar, Diabetes E11.9 ; Obesity (BMI 30-39.9) E66.9 ; Severe single current episode of major depressive disorder, 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 ; Restless legs G25.81 ; Essential hypertension I10 ; Chronic tension- type headache, intractable G44.221 ; Anxiety F41.9 and Chronic pain syndrome G89.[address] [facility] [address] [facility] [id number], [place] [address] Feb, Diaphoresis R61 ; Diabetes E11.9 ; Elevated blood sugar R73.9 and Acute vomiting R11.10 [facility] [address] [address] [id number] [id number] Mar, Dental examination V72.2 IMMUNIZATIONS No Known Immunizations SOCIAL HISTORY Never Assessed REASON FOR VISIT Rx correction/resend PLAN OF CARE VITAL SIGNS MEDICATIONS Medication Instructions Dosage Frequency Start Date End Date Duration Status Voltaren 1 % Transdermal 3 times a day, PRN apply 2 grams to elbow Aug Active RESULTS No Results PROCEDURES No Known [...]
--- OUTSIDE RECORDS SUMMARY | 2018-05-21 03:58 | XMS REPORT ---
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 Active 539142642 Problem Type 2 diabetes mellitus without complications E11.9 Active 772426344 Problem Memory changes R41.3 Active 664633247 Problem New daily persistent headache G44.52 Active 984910890491490 Problem Grief F43.20 Active 704495790 Problem Generalized anxiety disorder F41.1 Active 60210471 Problem Hypersomnia G47.10 Active 44275026 Problem Moderate episode of recurrent major depressive disorder F33.1 Active 909072920 Problem High serum estradiol R79.89 Active 365000431 Problem Unspecified ovarian cyst, left side N83.202 Active 61989278191952021 Problem Restless legs G25.81 Active 48984594 Problem Chronic pain syndrome G89.4 Active 222620310 Problem Unspecified ovarian cyst, right side N83.201 Active 58634181 Problem Chronic tension-type headache, intractable G44.221 Active 698830221 Problem History of vitamin D deficiency Z86.39 Active 738113329 Problem Obesity (BMI 30-39.9) E66.9 Active 588321465 ALLERGIES No Known Allergies ENCOUNTERS Encounter Location Date Diagnosis [facility] [address] [facility] [id number] [address] January, [facility] [address] [address] January, Chronic pain syndrome G89.4 [facility] [address] [facility] [id number] [place] [address] January, Left upper quadrant abdominal tenderness without rebound tenderness R10.812 ; Complex cyst of left ovary N83.292 and Complex cyst of right ovary N83.291 [place] [address] [address] Dec, Syncope, unspecified syncope type R55 and Mass of soft tissue of right upper extremity R22.31 [place] [address] [address] Dec, [place] [address] [address] Dec, Moderate episode of recurrent major depressive disorder F33.1 ; Generalized anxiety disorder F41.1 and Grief F43.[address] [address] Dec, Moderate episode of recurrent major depressive disorder F33.1 and Generalized anxiety disorder F41.1 [place] [address] [address] Dec, [place] [address] [address] Dec, Chronic pain syndrome G89.4 [place] [address] [place] [id number] [place] [address] Dec, [place] [address] [place] [id number] [place] [address] Nov, Moderate episode of recurrent major depressive disorder F33.1 and Generalized anxiety disorder F41.1 [place] [address] [place] [id number] [place] [address]- [address] Nov, [place] [address] [address] Nov, Chronic pain syndrome G89.4 ; Hypersomnia G47.10 ; Memory changes R41.3 ; New daily persistent headache G44.52 ; Post-menopausal Z78.0 and History of gastric surgery Z98.890 [place] [address] [address] Nov, [facility] [address] [place] [id number] [place] [address] Nov, Chronic pain syndrome G89.4 [facility] [address] [place] [id number] [place] [address]- [address] Oct, Moderate episode of recurrent major depressive disorder F33.1 and Generalized anxiety disorder F41.1 [facility] [address] [place] [id number] [place] [address] Oct, Type 2 diabetes mellitus without complications E11.9 ; Essential hypertension I10 ; Restless legs G25.81 ; Chronic tension-type headache, intractable G44.221 ; Nasal congestion R09.81 ; 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 and Chronic pain syndrome G89.4 [place] [address] [place] [id number] [place] [address] Oct, Moderate episode of recurrent major depressive disorder F33.1 [place] [address] [place] [id number] [place] [address] Oct, [place] [address] [place] [id number] [place] [address] Sep, Moderate episode of recurrent major depressive disorder F33.1 and Generalized anxiety disorder F41.1 [place] [address] [place] [id number] [place] [address]56- [address] Sep, Moderate episode of recurrent major depressive disorder F33.1 ; Generalized anxiety disorder F41.1 and Grief F43.20 [facility] [address] [place] [address]- 7[address] Sep, Moderate episode of recurrent major depressive disorder F33.1 [facility] [address] [place] [address] 0[address]47- [address] Sep, [facility] [address] [place] [id number] [place] [address] Aug, Chronic pain syndrome G89.4 [place] [address] [place] [address]86[address] Aug, [place] [address] [place] [id number] [place] [address] 04262- 6[address] Aug, Moderate episode of recurrent major depressive disorder F33.1 ; Generalized anxiety disorder F41.1 and Grief F43.[address] [address] Aug, [place] [address] [place] [id number] [place] [address] 29743- 8[address] Aug, [place] [address] [place] [id number] [place] [address] 666[address]- 7[address] Jul, Chronic pain syndrome G89.4 ; Positive depression screening Z13.89 ; Essential hypertension I10 ; Restless legs G25.81 ; Severe single current episode of major depressive disorder, 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 ; Anxiety F41.9 ; Chronic tension-type headache, intractable G44.221 ; Type 2 diabetes mellitus without complications E11.9 ; 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 ; Right elbow pain M25.521 and Family history of pancreatic cancer Z80.0 [place] [address] [place] [address] Jun, Chronic pain syndrome G89.4 [place] [address] [place] [id number] [place] [address] 76[address]- [address] May, Chronic pain syndrome G89.4 and Anxiety F41.9 [place] [address] [place] [address] 15881- 4[address] Apr, Diabetes E11.9 ; Obesity (BMI 30-39.9) E66.9 ; Severe single current episode of major depressive disorder, 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 ; Restless legs G25.81 ; Essential hypertension I10 ; Chronic tension- type headache, intractable G44.221 ; Anxiety F41.9 ; Chronic pain syndrome G89.4 and Nausea R11.0 [place] [address] [facility] [id number] [place] [address] Mar, Diabetes E11.9 ; Obesity (BMI 30-39.9) E66.9 ; Severe single current episode of major depressive disorder, 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 ; Restless legs G25.81 ; Essential hypertension I10 ; Chronic tension- type headache, intractable G44.221 ; Anxiety F41.9 and Chronic pain syndrome G89.4 [facility] [address] [place] [id number] [address] Feb, Diaphoresis R61 ; Diabetes E11.9 ; Elevated blood sugar R73.9 and Acute vomiting R11.10 [facility] [address] [place] [address] [id number] [id number] Mar, Dental examination V72.2 IMMUNIZATIONS No Known Immunizations SOCIAL HISTORY Never Assessed REASON FOR VISIT Pain management (chronic)--tcuppettRn, needs ameritox and contract, -Needing medication refills, -Recent fatigue and dizziness , -Lifted a heavy turkey agustin on giving with right arm having right elbow pain now. PLAN OF CARE Activity Details Follow Up 3 months or as indicated by lab Reason:pain/dm VITAL SIGNS Height 65 in 2017-08-17 Weight 235.1 lbs 2017-08-17 Temperature 98.4 degrees Fahrenheit 2017-08-17 Heart Rate 76 bpm 2017-08-17 Respiratory Rate 20 2017-08-17 BMI 39.12 kg/m2 2017-08-17 Blood pressure systolic 124 mmHg 2017-08-17 Blood pressure diastolic 80 mmHg 2017-08-17 MEDICATIONS Medication Instructions Dosage Frequency Start Date End Date Duration Status Lantus SoloStar 100 UNIT/ML Subcutaneous at bedtime 20 units Active Ropinirole HCl 0.5 MG Orally Once a day 1-2 tablet 1 to 3 hours before bedtime 24h Active Xanax 0.5 MG Orally Twice a day 1 tablet 12h Active Norel AD 4-10-325 MG Active Flatgap 7.5-325 MG Orally every 6 hrs 1 tablet as needed 6h Jul, Active Lisinopril 10 mg Orally Once a day TAKE ONE TABLET BY MOUTH ONCE DAILY 24h 30 Active Topamax 25 MG Orally Once a day 2 tablets in the evening 24h 30 days Active Zofran 4 MG Orally 3 times a day 1 tablets 8h Apr, 10 days Active Januvia 100 mg Orally Once a day 1 tablet 24h 30 Active Duloxetine HCl 60 mg Orally Once a day 1 capsule 24h Active Metformin HCl 1000 MG TAKE ONE TABLET BY MOUTH TWICE DAILY WITH MEALS 30 Active Cyclobenzaprine HCl 10 mg Orally 2 times a day 1 tablet as needed 12h 23 Sep, 2017 28 days Active RESULTS No Results PROCEDURES Procedure Date Ordered Result Body Site MICROALBUMIN, QUANTITATIVE Aug 17, 2017 VENIPUNCT, ROUTINE* Aug 17, 2017 GLYCATED HEMOGLOBIN TEST Aug 17, 2017 No Charge Aug 17, 2017 ASSAY THYROID STIM HORMONE Aug 17, 2017 ASSAY OF URINE CREATININE Aug 17, 2017 X-RAY EXAM OF ELBOW Aug 17, 2017 MICROALBUMIN, SEMIQUANT Aug 17, 2017 ASSAY OF AMYLASE Aug 17, 2017 ASSAY OF LIPASE Aug 17, 2017 INSTRUCTIONS MEDICATIONS ADMINISTERED No Known [...]
--- OUTSIDE RECORDS SUMMARY | 2018-05-21 03:58 | XMS REPORT ---
Author Author JOSE NIGHAT [facility] Address [address] [place] [address] Care Team Providers Care Learning Operations Specialist Name Role Phone JOSE, NIGHAT Unavailable PROBLEMS Type Condition ICD9-CM Code LNF02-UA Code Onset Dates Condition Status SNOMED Code Problem Essential hypertension I10 Active 40179227 Problem M[facility] 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.4 Active 716497309 Problem Type 2 diabetes mellitus without complications E11.9 Active 036870849 Problem Memory changes R41.3 Active 894286367 Problem New daily persistent headache G44.52 Active 547365333644491 Problem Grief F43.20 Active 966812867 Problem Generalized anxiety disorder F41.1 Active 63487658 Problem Hypersomnia G47.10 Active 84676030 Problem Moderate episode of recurrent major depressive disorder F33.1 Active 310404556 Problem High serum estradiol R79.89 Active 012804402 Problem Unspecified ovarian cyst, left side N83.202 Active 95927800593776319 Problem Restless legs G25.81 Active 58574615 Problem Chronic pain syndrome G89.4 Active 134651995 Problem Unspecified ovarian cyst, right side N83.201 Active 80764754 Problem Chronic tension-type headache, intractable G44.221 Active 430881023 Problem History of vitamin D deficiency Z86.39 Active 620922288 Problem Obesity (BMI 30-39.9) E66.9 Active 771480939 ALLERGIES No Known Allergies ENCOUNTERS Encounter Location Date Diagnosis [facility] [address] [id number] [address] Feb, Chronic pain syndrome G89.4 [facility] [address] [address] [id number] [address] January, [facility] [address] [place] [id number], [place] [address] January, Chronic pain syndrome G89.4 [facility] [address] [place] [id number] [place] [address] January, Left upper quadrant abdominal tenderness without rebound tenderness R10.812 ; Complex cyst of left ovary N83.292 and Complex cyst of right ovary N83.291 [facility] [address] [place] [id number] [place] [address] Dec, Syncope, unspecified syncope type R55 and Mass of soft tissue of right upper extremity R22.31 [place] [address] [place] [id number] [place] [address]67- [address] Dec, [place] [address] [address] Dec, Moderate episode of recurrent major depressive disorder F33.1 ; Generalized anxiety disorder F41.1 and Grief F43.20 [place] [address] [place] [id number] [place] [address]- 7734 Dec, Moderate episode of recurrent major depressive disorder F33.1 and Generalized anxiety disorder F41.1 [place] [address] [place] [id number] [place] [address]407- [address] Dec, [place] [address] [place] [id number] [place] [address] 579[address]- 1749 Dec, Chronic pain syndrome G89.4 [place] [address] [place] [id number] [place] [address] 25611- 3155 Dec, [place] [address] [place] [id number] [place] [address] 659[address]- 2549 Nov, Moderate episode of recurrent major depressive disorder F33.1 and Generalized anxiety disorder F41.1 [place] [address] [place] [id number] [place] [address] 25648- 0287 Nov, [place] [address] [place] [id number] [place] [address] 099[address]- 8[address] Nov, Chronic pain syndrome G89.4 ; Hypersomnia G47.10 ; Memory changes R41.3 ; New daily persistent headache G44.52 ; Post-menopausal Z78.0 and History of gastric surgery Z98.890 [place] [address] [place] [id number] [place] [address] 28[address]- [address] Nov, [place] [address] [place] [id number] [place] [address] 42175- 1613 Nov, Chronic pain syndrome G89.4 [place] [address] [address]- [address] Oct, Moderate episode of recurrent major depressive disorder F33.1 and Generalized anxiety disorder F41.1 [place] [address] [address]- [address] Oct, Type 2 diabetes mellitus without complications E11.9 ; Essential hypertension I10 ; Restless legs G25.81 ; Chronic tension-type headache, intractable G44.221 ; Nasal congestion R09.81 ; 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 and Chronic pain syndrome G89.4 [place] [address] [place] [id number] [place] [address] 22578- 2077 Oct, Moderate episode of recurrent major depressive disorder F33.1 [place] [address] [place] [id number] [place] [address] 58582- 5703 Oct, [place] [address] [place] [id number] [place] [address] 42636- 7680 Sep, Moderate episode of recurrent major depressive disorder F33.1 and Generalized anxiety disorder F41.1 [place] [address] [place] [id number] [place] [address] 44346- 2560 Sep, Moderate episode of recurrent major depressive disorder F33.1 ; Generalized anxiety disorder F41.1 and Grief F43.20 [place] [address] [place] [id number] [place] [address] 48298- 6336 Sep, Moderate episode of recurrent major depressive disorder F33.1 [place] [address] [place] [id number] [place] [address] 11887- 3716 Sep, [place] [id number] [place] [address] 33220- 9339 Aug, Chronic pain syndrome G89.4 [place] [address] [place] [id number] [place] [address] 72158- 2928 Aug, [place] [address] [place] [id number] [place] [address] 37462- 8082 Aug, Moderate episode of recurrent major depressive disorder F33.1 ; Generalized anxiety disorder F41.1 and Grief F43.20 [place] [address] [place] [id number] [place] [address]- [address] Aug, [place] [address] [place] [id number] [place] [address] 61699- 0518 Aug, [place] [address] [place] [id number] [place] [address] 89924- 5065 Jul, Chronic pain syndrome G89.4 ; Positive depression screening Z13.89 ; Essential hypertension I10 ; Restless legs G25.81 ; Severe single current episode of major depressive disorder, 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 ; Anxiety F41.9 ; Chronic tension-type headache, intractable G44.221 ; Type 2 diabetes mellitus without complications E11.9 ; MCC 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.4 ; Right elbow pain M25.521 and Family history of pancreatic cancer Z80.0 [place] [address] [place] [address] 21127- 4565 Jun, Chronic pain syndrome G89.4 [place] [address] [place] [address] 80436- 4623 May, Chronic pain syndrome G89.4 and Anxiety F41.9 [place] [address] [place] [id number] [place] [address] 50975- 4049 Apr, Diabetes E11.9 ; Obesity (BMI 30-39.9) E66.9 ; Severe single current episode of major depressive disorder, 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 ; Restless legs G25.81 ; Essential hypertension I10 ; Chronic tension- type headache, intractable G44.221 ; Anxiety F41.9 ; Chronic pain syndrome G89.4 and Nausea R11.0 [facility] [address] [address] [id number] [address] Mar, Diabetes E11.9 ; Obesity (BMI 30-39.9) E66.9 ; Severe single current episode of major depressive disorder, 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 ; Restless legs G25.81 ; Essential hypertension I10 ; Chronic tension- type headache, intractable G44.221 ; Anxiety F41.9 and Chronic pain syndrome G89.4 [facility] [address] [facility] [id number] [address] Feb, Diaphoresis R61 ; Diabetes E11.9 ; Elevated blood sugar R73.9 and Acute vomiting R11.10 [facility] [address] [place] [id number] [id number] Mar, Dental examination V72.2 IMMUNIZATIONS No Known Immunizations SOCIAL HISTORY Never Assessed REASON FOR VISIT f/josé miguel-Roxane HUANG PLAN OF CARE Activity Details Follow Up 2 Months Reason: f/u VITAL SIGNS Height 65 in 2017-10-06 Weight 230.8 lbs 2017-10-06 Heart Rate 102 bpm 2017-10-06 Respiratory Rate 20 2017-10-06 BMI 38.40 kg/m2 2017-10-06 Blood pressure systolic 122 mmHg 2017-10-06 Blood pressure diastolic 78 mmHg 2017-10-06 MEDICATIONS Medication Instructions Dosage Frequency Start Date End Date Duration Status Januvia 100 mg Orally Once a day 1 tablet 24h 30 Active Ropinirole HCl 0.5 MG Orally Once a day 1-2 tablet 1 to 3 hours before bedtime 24h Active Hosmer 5-325 MG 1 po tid x 7 days then bid x 7 days then daily x 7 days Sep, Active Xanax 0.5 MG Orally once daily as needed 1 tablet Sep, 30 days Active Lisinopril 10 mg Orally Once a day TAKE ONE TABLET BY MOUTH ONCE DAILY 24h 30 Active Cymbalta 30 MG Orally 3 times a day 1 capsule 8h Aug, Active Topamax 25 MG Orally Once a day 2 tablets in the evening 24h 30 days Active Zofran 4 MG Orally 3 times a day 1 tablets 8h 10 Active Norel AD 4-10-325 MG Active Voltaren 1 % Transdermal 3 times a day, PRN apply 2 grams to elbow Aug Not-Taking Cyclobenzaprine HCl 10 mg Orally 2 times a day 1 tablet as needed 12h Sep, 28 days Active Lyrica 50 mg 1 capsule by mouth daily x3 days then BID Daily Sep, Active Gabapentin 100 mg Orally 2 times a day as needed for anxiety 1 capsule Aug, Active Lantus SoloStar 100 UNIT/ML Subcutaneous at bedtime 20 units Active Metformin HCl 1000 MG TAKE ONE [...]
--- OUTSIDE RECORDS SUMMARY | 2018-05-21 03:59 | XMS REPORT ---
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 747755035 Problem Type 2 diabetes mellitus without complications E11.9 Active 048554527 Problem Memory changes R41.3 Active 759098110 Problem New daily persistent headache G44.52 Active 458735671358441 Problem Grief F43.20 Active 112929169 Problem Generalized anxiety disorder F41.1 Active 15220529 Problem Hypersomnia G47.10 Active 55729118 Problem Moderate episode of recurrent major depressive disorder F33.1 Active 908669114 Problem High serum estradiol R79.89 Active 082656177 Problem Unspecified ovarian cyst, left side N83.202 Active 04906885574993048 Problem Restless legs G25.81 Active 85288324 Problem Chronic pain syndrome G89.4 Active 817110925 Problem Unspecified ovarian cyst, right side N83.201 Active 31213334 Problem Chronic tension-type headache, intractable G44.221 Active 007442817 Problem History of vitamin D deficiency Z86.39 Active 326475334 Problem Obesity (BMI 30-39.9) E66.9 Active 511815969 ALLERGIES No Information ENCOUNTERS Encounter Location Date Diagnosis [facility] [address] [facility] [id number], [place] [address] Feb, [facility] [id number], [place] [address] January, [facility] [address] [id number], [place] [address] January, Chronic pain syndrome G89.4 [id number] [place] [address] January, Left upper quadrant abdominal tenderness without rebound tenderness R10.812 ; Complex cyst of left ovary N83.292 and Complex cyst of right ovary N83.291 [address] [id number] [place] [address] Dec, Syncope, unspecified syncope type R55 and Mass of soft tissue of right upper extremity R22.31 [place] [id number] [place] [address] Dec, [place] [address] 54[address] Dec, Moderate episode of recurrent major depressive disorder F33.1 ; Generalized anxiety disorder F41.1 and Grief F43.20 [place] [address] [address] Dec, Moderate episode of recurrent major depressive disorder F33.1 and Generalized anxiety disorder F41.1 [place] [id number] [place] [address] Dec, [place] [id number] [place] [address] 288[address] Dec, Chronic pain syndrome G89.4 [place] [id number] [place] [address]- [address] Dec, [place] [id number] [place] [address]24[address]647 Nov, Moderate episode of recurrent major depressive disorder F33.1 and Generalized anxiety disorder F41.1 [place] [address] [address] Nov, [place] [id number] [place] [address] 5[address] Nov, Chronic pain syndrome G89.4 ; Hypersomnia G47.10 ; Memory changes R41.3 ; New daily persistent headache G44.52 ; Post-menopausal Z78.0 and History of gastric surgery Z98.890 [place] [id number] [place] [address] 8[address]887 Nov, [place] [id number] [place] [address] 8440 Nov, Chronic pain syndrome G89.4 [place] [address] [address] Oct, Moderate episode of recurrent major depressive disorder F33.1 and Generalized anxiety disorder F41.1 [place] [address] [address] Oct, Type 2 diabetes mellitus without complications E11.9 ; Essential hypertension I10 ; Restless legs G25.81 ; Chronic tension-type headache, intractable G44.221 ; Nasal congestion R09.81 ; FDC 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.4 and Chronic pain syndrome G89.4 [place] [id number] [place] [address] 6[address]87- [address] Oct, Moderate episode of recurrent major depressive disorder F33.1 [place] [id number] [place] [address] Oct, [place] [id number] [place] [address]- 2014 Sep, Moderate episode of recurrent major depressive disorder F33.1 and Generalized anxiety disorder F41.1 [place] [id number] [place] [address]- 4793 Sep, Moderate episode of recurrent major depressive disorder F33.1 ; Generalized anxiety disorder F41.1 and Grief F43.20 [place] [id number] [place] [address] 70[address]- 54[address] Sep, Moderate episode of recurrent major depressive disorder F33.1 [place] [address] [address] Sep, [place] [address], [place] [address] Aug, Chronic pain syndrome G89.4 [place] [id number] [place] [address] 00783- 7741 Aug, [place] [id number] [place] [address] 76542- 1454 Aug, Moderate episode of recurrent major depressive disorder F33.1 ; Generalized anxiety disorder F41.1 and Grief F43.20 [place] [id number] [place] [address] 93767- 3[address] Aug, [place] [id number] [place] [address]- [address] Aug, [place] [id number] [place] [address] 95177- 7[address] Jul, Chronic pain syndrome G89.4 ; Positive depression screening Z13.89 ; Essential hypertension I10 ; Restless legs G25.81 ; Severe single current episode of major depressive disorder, 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 ; Anxiety F41.9 ; Chronic tension-type headache, intractable G44.221 ; Type 2 diabetes mellitus without complications E11.9 ; 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 ; Right elbow pain M25.521 and Family history of pancreatic cancer Z80.0 [place] [address] [place] [address] Jun, Chronic pain syndrome G89.4 [place] [address], [place] [address] May, Chronic pain syndrome G89.4 and Anxiety F41.9 [place] [id number] [place] [address] 89[address]- 60[address] Apr, Diabetes E11.9 ; Obesity (BMI 30-39.9) E66.9 ; Severe single current episode of major depressive disorder, 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 ; Restless legs G25.81 ; Essential hypertension I10 ; Chronic tension- type headache, intractable G44.221 ; Anxiety F41.9 ; Chronic pain syndrome G89.4 and Nausea R11.0 [facility] [id number], [place] [address] Mar, Diabetes E11.9 ; Obesity (BMI 30-39.9) E66.9 ; Severe single current episode of major depressive disorder, 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 ; Restless legs G25.81 ; Essential hypertension I10 ; Chronic tension- type headache, intractable G44.221 ; Anxiety F41.9 and Chronic pain syndrome G89.4 [facility] [address] [facility] [id number], [place] [address] Feb, Diaphoresis R61 ; Diabetes E11.9 ; Elevated blood sugar R73.9 and Acute vomiting R11.10 [facility] [id number] [id number] Mar, Dental examination V72.2 IMMUNIZATIONS No Known Immunizations SOCIAL HISTORY Never Assessed REASON FOR VISIT Labs request PLAN OF CARE VITAL SIGNS MEDICATIONS Unknown [...]
--- OUTSIDE RECORDS SUMMARY | 2018-05-21 04:00 | XMS REPORT | Continuity of Care Document ---
Author Author [facility] Organization [facility] Address Unknown Phone Unavailable Allergies Active Description Code Type Severity Reaction Onset Reported/Identified Relationship to Patient Clinical Status Yes NO KNOWN DRUG ALLERGIES UNKNOWN NO KNOWN DRUG ALLERG Yes No Known Drug Allergies [id number] Drug Allergy Unknown N/A 09/26/2015 Yes NSAIDS (Non-Steroidal Anti-Inflamma [id number] Drug Allergy Unknown N/A Medications Medication Packaging [...] SCREEN MAMMOGRAM FOR MALIGNANT NE 01/13/2016 CAROLINA OLEARY, ANJANA [place] Ot R92.8 OTH ABN AND [...] 12/11/2016 BRIAN MOCK MD A Ot Z79.84 NURSING HOME (CURRENT) USE OF ORAL HYPOGLYC 12/11/2016 BRIAN MOCK MD A Ot Z79.899 OTHER NURSING HOME (CURRENT) DRUG THERAPY 12/11/2016 ANJANA OLIVAREZ Ot [...] 12/11/2016 BRIAN MOCK MD A Ot Z79.84 NURSING HOME (CURRENT) USE OF ORAL HYPOGLYC 12/11/2016 BRIAN MOCK MD A Ot Z79.899 OTHER NURSING HOME (CURRENT) DRUG THERAPY 12/17/2016 BRIAN MOCK MD A Ot E11.9 TYPE 2 DIABETES MELLITUS WITHOUT COMPLIC 12/17/2016 BRIAN MOCK MD A Ot I10 ESSENTIAL (PRIMARY) HYPERTENSION 12/17/2016 BRIAN MOCK MD A Ot R00.2 PALPITATIONS 12/17/2016 BRIAN MOCK MD A Ot R07.9 CHEST PAIN, UNSPECIFIED 12/17/2016 BRIAN MOCK MD A Ot Z79.84 NURSING HOME (CURRENT) USE OF ORAL HYPOGLYC 12/17/2016 BRIAN MOCK MD A Ot 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 02/19/2017 JEANNINE CLARKE DENTAL HYGIENE PROFESSOR Ot E11.65 TYPE 2 DIABETES MELLITUS WITH HYPERGLYCE 02/19/2017 JEANNINE CLARKE DENTAL HYGIENE PROFESSOR Ot I10 ESSENTIAL (PRIMARY) HYPERTENSION 02/19/2017 JEANNINE CLARKE DENTAL HYGIENE PROFESSOR Ot 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.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 OF ORAL HYPOGLYC 02/19/2017 JEANNINE CLARKE DENTAL HYGIENE PROFESSOR Ot 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 02/25/2017 JEANNINE CLARKE APRN Ot E11.65 TYPE 2 DIABETES MELLITUS WITH HYPERGLYCE 02/25/2017 JEANNINE CLARKE DENTAL HYGIENE PROFESSOR Ot I10 ESSENTIAL (PRIMARY) HYPERTENSION 02/25/2017 JEANNINE CLARKE DENTAL HYGIENE PROFESSOR Ot 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.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 OF ORAL HYPOGLYC 02/25/2017 JEANNINE CLARKE DENTAL HYGIENE PROFESSOR Ot Z79.899 OTHER NURSING HOME (CURRENT) DRUG THERAPY 02/25/2017 JEANNINE CLARKE DENTAL HYGIENE PROFESSOR Ot E11.65 TYPE 2 DIABETES MELLITUS WITH HYPERGLYCE 02/25/2017 JEANNINE CLARKE DENTAL HYGIENE PROFESSOR Ot I10 ESSENTIAL (PRIMARY) HYPERTENSION 02/25/2017 JEANNINE CLARKE DENTAL HYGIENE PROFESSOR Ot 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.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 OF ORAL HYPOGLYC 02/25/2017 JEANNINE CLARKE DENTAL HYGIENE PROFESSOR Ot 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 03/01/2017 DEBBY LITTLE APRN Ot Z12.31 ENCNTR SCREEN MAMMOGRAM FOR MALIGNANT NE 06/10/2017 TANIKA COFFAMN 354.0 CARPAL TUNNEL SYNDROME 06/10/2017 AUGUSTUS, TANIKA Batista 727.05 OTHER TENOSYNOVITIS OR HAND AND WRIST 06/10/2017 AUGUSTUS, TANIKA Batista G56.01 CARPAL TUNNEL SYNDROME, RIGHT UPPER LIMB 06/10/2017 AUGUSTUS, TANIKA Batista M65.9 SYNOVITIS AND TENOSYNOVITIS, UNSPECIFIED 08/05/2017 AUGUSTUS, TANIKA Murillo 354.0 CARPAL TUNNEL SYNDROME 08/05/2017 AUGUSTUS, TANIKA Batista 727.03 TRIGGER FINGER (ACQUIRED) 08/05/2017 AUGUSTUS, TANIKA Batista 727.05 OTHER TENOSYNOVITIS OR HAND AND WRIST 08/05/2017 AUGUSTUS, TANIKA Murillo G56.02 CARPAL TUNNEL SYNDROME, LEFT UPPER LIMB 08/05/2017 AUGUSTUS, TANIKA Batista M65.332 TRIGGER FINGER, LEFT MIDDLE FINGER 08/05/2017 AUGUSTUS, TANIKA Batista M65.342 TRIGGER FINGER, LEFT RING FINGER 08/05/2017 AUGUSTUS, TANIKA Batista M65.9 SYNOVITIS AND TENOSYNOVITIS, UNSPECIFIED 12/23/2017 MADL, RIGOBERTO L BINDERY CHIEF Ot G44.52 NEW DAILY PERSISTENT HEADACHE (NDPH) 12/23/2017 MADL, RIGOBERTO L BINDERY CHIEF Ot R41.3 OTHER AMNESIA 01/06/2018 MADL, RIGOBERTO L BINDERY CHIEF Ot G44.52 NEW DAILY PERSISTENT HEADACHE (NDPH) 01/06/2018 MADL, RIGOBERTO L BINDERY CHIEF Ot R41.3 OTHER AMNESIA 01/15/2018 LOKI LIMON Ot E11.9 TYPE 2 DIABETES MELLITUS WITHOUT COMPLIC 01/15/2018 LOKI LIMON Ot F32.9 MAJOR DEPRESSIVE DISORDER, SINGLE EPISOD 01/15/2018 LOKI LIMON Ot F41.9 ANXIETY DISORDER, UNSPECIFIED 01/15/2018 LOKI LIMON Ot G43.909 MIGRAINE, UNSP, NOT INTRACTABLE, WITHOUT 01/15/2018 LOKI LIMON Ot K29.00 ACUTE GASTRITIS WITHOUT BLEEDING 01/15/2018 LOKI LIMON Ot N39.0 URINARY TRACT INFECTION, SITE NOT SPECIF 01/15/2018 LOKI LIMON Ot N83.291 OTHER OVARIAN CYST, RIGHT SIDE 01/15/2018 LOKI LIMON Ot N83.292 OTHER OVARIAN CYST, LEFT SIDE 01/15/2018 LOKI LIMON Ot R10.13 EPIGASTRIC PAIN 01/15/2018 LOKI LIMON Ot Z88.6 ALLERGY STATUS TO ANALGESIC AGENT STATUS 01/15/2018 LOKI LIMON Ot Z90.49 ACQUIRED ABSENCE OF OTHER SPECIFIED PART 01/15/2018 LOKI LIMON Ot Z90.710 ACQUIRED ABSENCE OF BOTH CERVIX AND UTER 01/17/2018 LOKI LIMON Ot E11.9 TYPE 2 DIABETES MELLITUS WITHOUT COMPLIC 01/17/2018 LOKI LIMON Ot F32.9 MAJOR DEPRESSIVE DISORDER, SINGLE EPISOD 01/17/2018 LOKI LIMON Ot F41.9 ANXIETY DISORDER, UNSPECIFIED 01/17/2018 LOKI LIMON Ot G43.909 MIGRAINE, UNSP, NOT INTRACTABLE, WITHOUT 01/17/2018 LOKI LIMON Ot K29.00 ACUTE GASTRITIS WITHOUT BLEEDING 01/17/2018 LOKI LIMON Ot N39.0 URINARY TRACT INFECTION, SITE NOT SPECIF 01/17/2018 LOKI LIMON Ot N83.291 OTHER OVARIAN CYST, RIGHT SIDE 01/17/2018 LOKI LIMON Ot N83.292 OTHER OVARIAN CYST, LEFT SIDE 01/17/2018 LOKI LIMON Ot R10.13 EPIGASTRIC PAIN 01/17/2018 LOKI LIMON Ot Z88.6 ALLERGY STATUS TO ANALGESIC AGENT STATUS 01/17/2018 LOKI LIMON Ot Z90.49 ACQUIRED ABSENCE OF OTHER SPECIFIED PART 01/17/2018 LOKI LIMON Ot Z90.710 ACQUIRED ABSENCE OF BOTH CERVIX AND UTER 04/08/2018 ANJANA OLIVAREZ Ot Z12.31 ENCNTR SCREEN MAMMOGRAM FOR MALIGNANT NE 04/08/2018 ANJANA OLIVAREZ Ot R92.8 OTH ABN AND INCONCLUSIVE FINDINGS ON DX 04/08/2018 DEBBY LITTLE DENTAL HYGIENE PROFESSOR Ot Z12.31 ENCNTR SCREEN MAMMOGRAM FOR MALIGNANT NE 04/08/2018 MADL, RIGOBERTO L BINDERY CHIEF Ot G44.52 NEW DAILY PERSISTENT HEADACHE (NDPH) 04/08/2018 MADL, RIGOBERTO L BINDERY CHIEF Ot R41.3 OTHER AMNESIA 04/13/2018 ANJANA OLIVAREZ [place] Ot Z12.31 ENCNTR SCREEN MAMMOGRAM FOR MALIGNANT NE 04/13/2018 NADYA OLIVAREZDHARA Mohamud Ot R92.8 OTH ABN AND INCONCLUSIVE FINDINGS ON DX 04/13/2018 DEBBY LITTLE APRN Ot Z12.31 ENCNTR SCREEN MAMMOGRAM FOR MALIGNANT NE 04/13/2018 RIGOBERTO MICHELE BINDERY CHIEF Ot G44.52 NEW DAILY PERSISTENT HEADACHE (NDPH) 04/13/2018 RIGOBERTO MICHELE BINDERY CHIEF Ot R41.3 OTHER AMNESIA Procedures There is [...] Urine-pH 5.0 5-8.5 Urine-Protein Negative Negative Urine-Specific Sledge <=1.005 1.000-1.030 Urine-WBC 0-2/HPF Urobilinogen 0.2 E.U./dL [...] 5-8.5 Urine-Protein Negative Negative Urine-RBC 0-2/HPF Urine-Specific Sledge 1.015 1.000-1.030 Urine-WBC 10-20/HPF Urobilinogen 0.2 E.U./dL [...] - 08/17/17 12:28 TSH 0.92 mIU/L NRG Complete urinalysis with reflex to culture - 01/15/18 15:05 Urine color determination YELLOW NRG Urine clarity determination SLIGHTLY CLOUDY NRG Urine pH measurement by test strip 5 5-9 Specific gravity of urine by test strip 1.010 1.016- 1.022 Urine protein assay by test strip, semi-quantitative NEGATIVE NEGATIVE Urine glucose detection by automated test strip 2+ NEGATIVE Erythrocytes detection in urine sediment by light microscopy 1+ NEGATIVE Urine ketones detection by automated test strip NEGATIVE NEGATIVE Urine nitrite detection by test strip POSITIVE NEGATIVE Urine total bilirubin detection by test strip NEGATIVE NEGATIVE Urine urobilinogen measurement by automated test strip (mass/volume) NORMAL NORMAL Urine leukocyte esterase detection by dipstick 3+ NEGATIVE Automated urine sediment erythrocyte count by microscopy (number/high power field) NONE NRG Automated urine sediment leukocyte count by microscopy (number/high power field ) [HPF] NRG Bacteria detection in urine sediment by light microscopy LARGE NRG Crystals detection in urine sediment by light microscopy NONE NRG Casts detection in urine sediment by light microscopy NONE NRG Mucus detection in urine sediment by light microscopy NEGATIVE NRG Complete urinalysis with reflex to culture YES NRG Bacterial urine culture - 01/15/18 15:05 Bacterial urine culture [id number] NRG COLONY COUNT >100,000/ML NRG FTX;REPORTABLE SENSITIVITY REPORTED 01/17 07:15 NRG FREE TEXT ENTRY 3 MIXED GRAM POSITIVE JESSIE NRG Bacterial susceptibility panel - 01/15/18 15:05 Gentamicin susceptibility test by minimum inhibitory concentration < = NRG Trimethoprim/sulfamethoxazole susceptibility test by minimum inhibitoryconcentration >= NRG Ampicillin susceptibility test by minimum inhibitory concentration > = NRG Tobramycin susceptibility test by minimum inhibitory concentration < = NRG Cefazolin susceptibility test by minimum inhibitory concentration < = NRG Ceftriaxone susceptibility test by minimum inhibitory concentration <= NRG Ampicillin/sulbactam susceptibility test by minimum inhibitory concentration S NRG Piperacillin/tazobactam susceptibility test by minimum inhibitory concentration S NRG Ciprofloxacin susceptibility test by minimum inhibitory concentration >= NRG Meropenem susceptibility test by minimum inhibitory concentration < = NRG Nitrofurantoin susceptibility test by minimum inhibitory concentration <= NRG Aztreonam susceptibility test by minimum inhibitory concentration < = NRG Extended spectrum beta lactamase (ESBL) producing bacteria susceptibility test by minimum inhibitory concentration - NRG Complete blood count (CBC) with automated white blood cell (WBC) differential - 01/15/18 15:20 Blood leukocytes automated count (number/volume) 7.5 10*3/uL 4.3-11.0 Blood erythrocytes automated count (number/volume) 4.11 10*6/uL 4.35-5.85 Venous blood hemoglobin measurement (mass/volume) 11.7 g/dL 11.5-16.0 Blood hematocrit (volume fraction) 34 % 35-52 Automated erythrocyte mean corpuscular volume 82 [foz_us] 80-99 Automated erythrocyte mean corpuscular hemoglobin (mass per erythrocyte) 28 pg 25-34 Automated erythrocyte mean corpuscular hemoglobin concentration measurement ( mass/volume) 35 g/dL 32-36 Automated erythrocyte distribution width ratio 13.7 % 10.0-14.5 Automated blood platelet count (count/volume) 293 10*3/uL 130-400 Automated blood platelet mean volume measurement 8.7 [foz_us] 7.4-10.4 Automated blood neutrophils/100 leukocytes 66 % 42-75 Automated blood lymphocytes/100 leukocytes 25 % 12-44 Blood monocytes/100 leukocytes 8 % 0-12 Automated blood eosinophils/100 leukocytes 1 % 0-10 Automated blood basophils/100 leukocytes 0 % 0-10 Blood neutrophils automated count (number/volume) 5.0 10*3 1.8-7.8 Blood lymphocytes automated count (number/volume) 1.9 10*3 1.0-4.0 Blood monocytes automated count (number/volume) 0.6 10*3 0.0-1.0 Automated eosinophil count 0.1 10*3/uL 0.0-0.3 Automated blood basophil count (count/volume) 0.0 10*3/uL 0.0-0.1 Comprehensive metabolic panel - 01/15/18 15:20 Serum or plasma sodium measurement (moles/volume) 130 mmol/L 135-145 Serum or plasma potassium measurement (moles/volume) 4.4 mmol/L 3.6-5.0 Serum or plasma chloride measurement (moles/volume) 100 mmol/L 98-107 Carbon dioxide 18 mmol/L 21-32 Serum or plasma anion gap determination (moles/volume) 12 mmol/L 5-14 Serum or plasma urea nitrogen measurement (mass/volume) 10 mg/dL 7-18 Serum or plasma creatinine measurement (mass/volume) 1.00 mg/dL 0.60-1.30 Serum or plasma urea nitrogen/creatinine mass ratio 10 NRG Serum or plasma creatinine measurement with calculation of estimated glomerular filtration rate 59 NRG Serum or plasma glucose measurement (mass/volume) 147 mg/dL 70-105 Serum or plasma calcium measurement (mass/volume) 9.5 mg/dL 8.5-10.1 Serum or plasma total bilirubin measurement (mass/volume) 0.6 mg/dL 0.1-1.0 Serum or plasma alkaline phosphatase measurement (enzymatic activity/volume) 58 U/L 40-136 Serum or plasma aspartate aminotransferase measurement (enzymatic activity/ volume) 14 U/L 5-34 Serum or plasma alanine aminotransferase measurement (enzymatic activity/volume ) 13 U/L 0-55 Serum or plasma protein measurement (mass/volume) 7.2 g/dL 6.4-8.2 Serum or plasma albumin measurement (mass/volume) 4.0 g/dL 3.2-4.5 Lipase - 01/15/18 15:20 Lipase 15 U/L 8-78 Serum or plasma C reactive protein measurement (mass/volume) - 01/15/18 15:20 Serum or plasma C reactive protein measurement (mass/volume) 1.37 mg /dL 0.00-0.50 TSH - 03/29/18 10:13 TSH 0.80 mIU/L NRG CULTURE, URINE - 05/02/18 10:18 CULTURE, URINE, ROUTINE SEE NOTE NRG Encounters ACCT No. Visit Date/Time Discharge Status Pt. Type Provider Facility Loc./Unit Complaint [id number] 04/11/2018 11:00:00 04/11/2018 23:59:59 CLS Preadmit KIMBERLEE PEDERSON DO [facility] RAD SCREENING [id number] 01/15/2018 15:00:00 01/15/2018 20:00:00 DIS Emergency LOKI LIMON [facility] ER L SIDE STOMACH PAIN RADIATING AROUND BACK [id number] 12/22/2017 08:05:00 12/22/2017 23:59:59 CLS Outpatient RIGOBERTO MICHELE BINDERY CHIEF [facility] RAD MEMORY CHANGES [id number] 02/19/2017 12:06:00 02/19/2017 13:57:00 DIS Emergency CLARKEJEANNINE DENTAL HYGIENE PROFESSOR [facility] ER ELEVATED BLOOD SUGAR [id number] 02/12/2017 13:13:00 02/12/2017 23:59:59 CLS Outpatient LITTLEDEBBY DENTAL HYGIENE PROFESSOR [facility] RAD SCREENING [id number] 12/11/2016 09:07:00 12/11/2016 10:27:00 DIS Emergency BRIAN MOCK MD [facility] ER CHEST PAIN [id number] 01/10/2016 07:33:00 01/10/2016 23:59:59 CLS Outpatient ANJANA OLIVAREZ [facility] RAD INCREASED DENSITY IN RIGHT BREAST RUQ [id number] 12/25/2015 10:10:00 12/25/2015 23:59:59 CLS Outpatient ANJANA OLIVAREZ [facility] RAD SCREENING [id number] 09/26/2015 11:02:00 09/26/2015 17:09:00 DIS Emergency LOKI LIMON [facility] ER CHEST/BACK PAIN LOW BP DIZZINESS [id number] 12/31/2017 10:54:00 12/31/2017 23:59:00 DIS Outpatient TANIKA COFFMAN [id number] 08/05/2017 08:48:00 08/05/2017 13:37:00 DIS Outpatient TANIKA COFFMAN [id number] 08/02/2017 13:04:00 08/02/2017 23:59:00 DIS Outpatient TANIKA COFFMAN [id number] 06/10/2017 00:00:00 06/10/2017 10:58:00 DIS Outpatient TANIKA COFFMAN [id number] 06/03/2017 10:30:00 06/03/2017 23:59:00 DIS Outpatient TANIKA COFFMAN [id number] 04/27/2017 09:34:00 04/27/2017 23:59:00 DIS Outpatient TANIKA COFFMAN [id number] 03/05/2017 09:37:00 03/05/2017 23:59:00 DIS Outpatient Sabi Rosales [id number] 03/02/2017 08:00:00 03/02/2017 23:59:00 DIS Outpatient Sabi Rosales [id number] 02/26/2017 11:05:00 02/26/2017 23:59:00 DIS Outpatient Sabi Rosales [id number] 06/09/2017 10:32:45 Document Registration [id number] 03/29/2018 09:00:00 03/29/2018 23:59:59 CLS Outpatient YU, [facility] [id number] 05/02/2018 10:00:00 Document Registration [id number] 03/29/2018 09:00:00 Document Registration [id number] 08/17/2017 11:20:00 Document Registration [id number] 05/08/2017 08:36:00 Document Registration
== END 2018-05-20 19:23 | disposition home or self-care (01) ==
LOC: ER 17:07 → EDUNIT# 17:07 → ER 19:23
DX: N39.0 Urinary tract infection, site not specified (principal); E87.1 Hypo-osmolality and hyponatremia; R19.7 Diarrhea, unspecified; R19.5 Other fecal abnormalities; E11.9 Type 2 diabetes mellitus without complications; I10 Essential (primary) hypertension; F41.9 Anxiety disorder, unspecified; F32.9 Major depressive disorder, single episode, unspecified; G43.909 Migraine, unspecified, not intractable, without status migrainosus; Z88.6 Allergy status to analgesic agent; Z90.89 Acquired absence of other organs; Z90.710 Acquired absence of both cervix and uterus; Z98.84 Bariatric surgery status
CPT/HCPCS: 36415; 80053; 81000; 85025; 85610; 87077; 87088; 87186; 96361; 96365

== ENCOUNTER 2018-07-31 16:12 | Emergency (ER) | payer OTHER ==
[~2018-07-31] VITALS: Ht 165.1 cm; Wt 90.7 kg
[~2018-07-31 16:12] MED LIST changes: +CEFD300C3 PO; +FLUC150T PO; +LACT1CAP72 PO; +METR-197; +METR500T PO; -METR500T21
[2018-07-31] MEDS ORDERED: FAMOTIDINE 20 MG (PEPCID) TABLET PO STA (16:44)
[2018-07-31] MEDS ORDERED: NS IV 1000 ML 1,000 ML IV SCH (16:44)
[2018-07-31] MEDS ORDERED: ANTACID SUSP 30 ML UDC (MYLANTA) PO ONE (16:45)
[2018-07-31] MEDS ORDERED: ASPIRIN 81 MG CHEW (CHILDREN'S ASA) PO ONE (16:45)
[2018-07-31] MEDS ORDERED: LIDOCAINE 2% VISCOUS 15 ML UDC PO ONE (16:45)
[2018-07-31 16:51] VITALS: BP_SYST 104; BP_SYST 89; BP_SYST 90; BP_DIAS 57; BP_DIAS 59; BP_DIAS 70
[2018-07-31 16:54] LABS: BASOPHILS % (AUTO) 0 % (0-10); EOSINOPHILS # (AUTO) 0.1 10^3/uL (0.0-0.3); EOSINOPHILS % (AUTO) 1 % (0-10); HEMATOCRIT 35 % (35-52); HEMOGLOBIN 11.4 G/DL (11.5-16.0); LYMPHOCYTES # (AUTO) 2.4 X 10^3 (1.0-4.0); LYMPHOCYTES % (AUTO) 32 % (12-44); MEAN CORPUSCULAR HEMOGLOBIN 28 PG (25-34); MEAN CORPUSCULAR HGB CONC 33 G/DL (32-36); MEAN CORPUSCULAR VOLUME 85 FL (80-99); MEAN PLATELET VOLUME 9.4 FL (7.4-10.4); MONOCYTES # (AUTO) 0.6 X 10^3 (0.0-1.0); MONOCYTES % (AUTO) 7 % (0-12); NEUTROPHILS # (AUTO) 4.6 X 10^3 (1.8-7.8); NEUTROPHILS % (AUTO) 59 % (42-75); PLATELET COUNT 404 10^3/uL (130-400); RED BLOOD COUNT 4.12 10^6/uL (4.35-5.85); WHITE BLOOD COUNT 7.7 10^3/uL (4.3-11.0)
--- NOTE | 2018-07-31 16:54 | ED Chest Pain ---
General Chief Complaint: Dizziness/Syncope Stated Complaint: CHEST PAIN,DIZZY Nursing Triage Note: PATIENT HERE FOR DIZZINESS THAT STARTED A FEW DAYS AGO BUT IS WORSE TODAY. SHE STATES THAT SHE HAS GOTTEN DIZZY TO THE POINT OF FALLING DOWN 2X TODAY. SHE ALSO HAS HAD PAIN IN HER CHEST THAT IS NOW MOSTLY IN HER BACK BETWEEN HER SHOULDER BLADES. ALSO COMPLAINS OF MEMORY LOSS TODAY. SHE WAS RECENTLY TREATED FOR A KIDNEY INFECTION AND FINISHED HER ANTIBIOTICS 2 DAYS AGO. Nursing Sepsis Screen: No Definite Risk Source: patient Exam Limitations: no limitations History of Present Illness Date Seen by Provider: Jul 31, 2018 Time Seen by Provider: 16:40 Initial Comments Patient presents to ER by private conveyance with chief complaint that she's had some chest pain this morning she woke up with. It is in her chest feels it is gripping her chest. She says is not worse with deep inspiration. Has no cough fevers chills nausea vomiting or diarrhea. She says she does have chronic nausea but she's not using any Zofran for today. She did not think anything of it because after about one hour it went away. She has no primary history of coronary artery disease or early onset coronary artery disease in her primary family. She does not have a history of CHF. She does have a history of fibromyalgia for which she was successfully treated on opiates but then her pain contract was broken and she said she was taken off the opiates. She's been recently put on Cymbalta and Lyrica which she feels has not helped her. She said she felt a little off all day and then about 2 hours ago she started having some sharp stabbing knifelike pain in her back between her shoulder blades worse with movement or being pushed on the back. This concerned her so she decided to come to the ER. She does have diabetes which is poorly controlled she says as well as. She does not smoke have hyperthyroidism or hypercholesterolemia. She says she has had dizziness all day as well feeling like the room is spinning around her and when she bent over getting close to the wash machine this morning she felt tingling in her fingers and got dizzy and fell backwards as she stood back up landing against the matrix drier tender. She did not strike her head nor lose consciousness. She says she also was recently diagnosed with urinary tract infection and put on Macrobid which she finished about 2 days ago but now she's feeling urinary frequency and hesitancy again and is afraid that maybe she was not appropriately treated. When she called the doctor's office the culture and sensitivity was not back yet. Allergies and Home Medications Allergies Coded Allergies: NSAIDS (Non-Steroidal Anti-Inflamma (Verified Adverse Reaction, Unknown, ) UNABLE TO TAKE DUE TO GASTRIC SURG Home Medications Cefdinir 300 Mg Capsule, 300 MG PO BID Prescribed by: SONAL BLOCK on 05/20/181903 Fluconazole 150 Mg Tablet, 150 MG PO UD Take one tablet on May 23 and May 26 Prescribed by: SONAL BLOCK on 05/20/181903 Lactobacillus Combo No.10 1 Each Capsule, 1 EACH PO TIDWM Prescribed by: SONLA BLOCK on 05/20/181904 Metronidazole 500 Mg Tablet, 500 MG PO TID Prescribed by: SONAL BLOCK on 05/20/181904 Nitrofurantoin Macrocrystal 100 Mg Capsule, 100 MG PO BID Prescribed by: LOKI KNIGHT on 01/15/181852 Omeprazole 40 Mg Capsule.dr, 40 MG PO DAILY Prescribed by: LOKI KNIGHT on 01/15/181852 Omeprazole 40 Mg Capsule.dr, 40 MG PO BID Prescribed by: LOKI KNIGHT on 01/15/181905 Ondansetron 8 Mg Tab.rapdis, 8 MG PO Q6H PRN for NAUSEA/VOMITING-1ST LINE Prescribed by: LOKI KNIGHT on 01/15/181852 Patient Home Medication List Home Medication List Reviewed: Yes Review of Systems Review of Systems Constitutional: No chills, No diaphoresis EENTM: No Blurred Vision, No Double Vision Respiratory: Denies Cough, Denies SOA at Rest Cardiovascular: See HPI, Chest Pain; Denies Edema Gastrointestinal: Denies Abdomen Distended, Denies Abdominal Pain Genitourinary: Denies Burning, Denies Discharge; Frequency Musculoskeletal: see HPI, back pain; No joint pain Skin: No pruritus, No rash Psychiatric/Neurological: Denies Headache, Denies Numbness Past Gmtjfrj-Okftqs-Hucdro Hx Patient Social History Alcohol Use: Denies Use Recreational Drug Use: No Smoking Status: Never a Smoker 2nd Hand Smoke Exposure: No Recent Foreign Travel: No Contact w/Someone Who Travel: No Recent Infectious Disease Expo: No Recent Hopitalizations: No Immunizations Up To Date PED Vaccines UTD: Yes Seasonal Allergies Seasonal Allergies: No Past Medical History Surgeries: Yes (D&C x5 [id number], EGD and colonoscopy) Abdominal, Appendectomy, Gallbladder, Hysterectomy, Oophorectomy Respiratory: No Cardiac: Yes Hypertension Neurological: Yes Headaches /Migraines Reproductive Disorders: No DOLPHIN TRAINER History: Hysterectomy Gastrointestinal: No Musculoskeletal: Yes Endocrine: Yes Diabetes, Non-Insulin dep HEENT: No Cancer: No Psychosocial: Yes Anxiety, Depression Family Medical History No Pertinent Family Hx Physical Exam Vital Signs Vital Signs - First Documented 07/31/18 07/31/18 16:15 17:01 Temp 98.5 Pulse 108 Resp 22 B/P (MAP) 119/65 (83) Pulse Ox 98 O2 Delivery Room Air Capillary Refill : Less Than 3 Seconds Height, Weight, BMI Height: 5'5.00" Weight: 200lbs. 0oz. 90.321470sz; 43.26 BMI Method:Stated General Appearance: No Apparent Distress, WD/WN, Anxious HEENT: PERRL/EOMI, Normal ENT Inspection, Pharynx Normal, Moist Mucous Membranes Neck: Full Range of Motion, Normal Inspection, Non Tender, Supple Respiratory: Lungs Clear, Normal Breath Sounds, No Accessory Muscle Use, No Respiratory Distress, Other (chest wall anteriorly and posteriorly is tender to palpation but less painful than what she was experiencing earlier.) Cardiovascular: Regular Rate, Rhythm, No Edema, Normal Peripheral Pulses Gastrointestinal: Normal Bowel Sounds, No Organomegaly, Non Tender, Soft Extremity: Normal Capillary Refill, Normal Inspection, Normal Range of Motion Neurologic/Psychiatric: Alert, Oriented x3 Skin: Normal Color, Warm/Dry Progress/Results/Core Measures Results/Orders Lab Results Laboratory Tests Test 07/31/18 16:20 07/31/18 18:30 07/31/18 18:35 Range/Units White Blood Count 7.7 4.3-11.0 10^3/uL Red Blood Count 4.12 L 4.35-5.85 10^6/uL Hemoglobin 11.4 L 11.5-16.0 G/DL Hematocrit 35 35-52 % Mean Corpuscular Volume 85 80-99 FL Mean Corpuscular Hemoglobin 28 25-34 PG Mean Corpuscular Hemoglobin Concent 33 32-36 G/DL Red Cell Distribution Width 15.0 H 10.0-14.5 % Platelet Count 404 H 130-400 10^3/uL Mean Platelet Volume 9.4 7.4-10.4 FL Neutrophils (%) (Auto) 59 42-75 % Lymphocytes (%) (Auto) 32 12-44 % Monocytes (%) (Auto) 7 0-12 % Eosinophils (%) (Auto) 1 0-10 % Basophils (%) (Auto) 0 0-10 % Neutrophils # (Auto) 4.6 1.8-7.8 X 10^3 Lymphocytes # (Auto) 2.4 1.0-4.0 X 10^3 Monocytes # (Auto) 0.6 0.0-1.0 X 10^3 Eosinophils # (Auto) 0.1 0.0-0.3 10^3/uL Basophils # (Auto) 0.0 0.0-0.1 10^3/uL Prothrombin Time 12.3 12.2-14.7 SEC INR Comment 0.9 0.8-1.4 Activated Partial Thromboplast Time 27 24-35 SEC Sodium Level 133 L 135-145 MMOL/L Potassium Level 3.8 3.6-5.0 MMOL/L Chloride Level 100 98-107 MMOL/L Carbon Dioxide Level 17 L 21-32 MMOL/L Anion Gap 16 H 5-14 MMOL/L Blood Urea Nitrogen 11 7-18 MG/DL Creatinine 1.20 0.60-1.30 MG/DL Estimat Glomerular Filtration Rate 48 BUN/Creatinine Ratio 9 Glucose Level 232 H 70-105 MG/DL Calcium Level 9.4 8.5-10.1 MG/DL Corrected Calcium 9.5 8.5-10.1 MG/DL Magnesium Level 1.6 L 1.8-2.4 MG/DL Total Bilirubin 0.3 0.1-1.0 MG/DL Aspartate Amino Transf (AST/SGOT) 13 5-34 U/L Alanine Aminotransferase (ALT/SGPT) 12 0-55 U/L Alkaline Phosphatase 70 40-136 U/L Myoglobin 50.9 10.0-92.0 NG/ML Troponin I < 0.30 <0.30 NG/ML B-Type Natriuretic Peptide 16.2 <100.0 PG/ML Total Protein 7.3 6.4-8.2 GM/DL Albumin 3.9 3.2-4.5 GM/DL Lipase 26 8-78 U/L My Orders Orders - CRISTIANO,MELANIE J Orthostatic Vital Signs (Adult (07/31/18 16:44) Cbc With Automated Diff (07/31/18 16:44) Magnesium (07/31/18 16:44) Chest 1 View, Ap/Pa Only (07/31/18 16:44) Ekg Tracing (07/31/18 16:44) Cardiac Profile 1 (07/31/18 16:44) Comprehensive Metabolic Panel (07/31/18 16:44) Myoglobin Serum (07/31/18 16:44) Protime With Inr (07/31/18:44) Partial Thromboplastin Time (07/31/18 16:44) O2 (07/31/18 16:44) Monitor-Rhythm Ecg Trace Only (07/31/18 16:44) Lipid Panel (08/01/18 06:00) Aspirin Chewable Tablet (Baby Aspirin Ch (07/31/18 16:45) Saline Lock/Iv-Start (07/31/18 16:44) Lipase (07/31/18 16:44) BNP (07/31/18 16:44) Saline Lock/Iv-Start (07/31/18 16:44) Ns Iv 1000 Ml (Sodium Chloride 0.9%) (07/31/18 16:44) Lidocaine 2% Viscous 15 Ml (Xylocaine Vi (07/31/18 16:45) Famotidine Tablet (Pepcid Tablet) (07/31/18 16:44) Antacid Suspension (Mylanta Suspension (07/31/18 16:45) Ua Culture If Indicated (07/31/18 16:44) Drug Screen Stat (Urine) (07/31/18 17:11) Troponin I (07/31/18 18:26) Medications Given in ED Current Medications Medications Dose Ordered Sig/Lidya Route Start Time Stop Time Status Last Admin Dose Admin Al Hydrox/Mg Hydrox/Simethicone 30 ml ONCE ONCE PO 07/31/18 16:45 07/31/18 16:47 DC 07/31/18 16:59 30 ML Aspirin 324 mg ONCE ONCE PO 07/31/18 16:45 07/31/18 16:47 DC 07/31/18 16:57 324 MG Lidocaine HCl 15 ml ONCE ONCE PO 07/31/18 16:45 07/31/18 16:47 DC 07/31/18 16:58 15 ML Vital Signs/I&O 07/31/18 07/31/18 07/31/18 16:15 16:51 17:01 Temp 98.5 Pulse 108 102 106 111 Resp 22 B/P (MAP) 119/65 (83) 104/59 (74) 90/70 (77) 89/57 (68) Pulse Ox 98 99 O2 Delivery Room Air Blood Pressure Mean: 83 Progress Progress Note : Time: 18:14 Progress Note The patient has a dizzy array of symptoms to include dizziness, chest pain, back pain, urinary frequency. Her review of systems is nearly agustin positive. There is certainly some element of anxiety involved and all of this. We will do an appropriate workup to include a troponin rule out. However she been having the symptoms since at least 7:00 this morning so an initial troponin being negative is quite reassuring. Does not seem to have any coronary history. She is mildly tachycardic which could be related to pain, anxiety. She does not have any reason to have a pulmonary embolism. She does not have calf swelling or pain, periods of immobility, recent surgeries or other problems inflammatory events, smoking or use of control with estrogen. She is not really endorsing shortness of breath either in her vital signs are otherwise unremarkable. Clinically we can rule out PE. She does have a history of yesterday bypass so we will give her a GI cocktail see if that alleviates her symptoms. She was not having any symptoms for the time she had the GI cocktail. We've encouraged her to use Flonase to help clean out her middle ear and see if that helps with her dizziness. We think that the back pain which came after she had a tumble against the matrix drier tender is probably musculoskeletal and should be alleviated with Tylenol. We encouraged her strongly to follow-up with either her semi driver or general surgeon to have her Bret-en-Y gastric bypass addressed. We will also encourage her to follow up outpatient to have her vitamin levels and magnesium addressed. She is taking an uovh-gyk-hhcprpx women' s vitamin daily. Initial ECG Impression Date: Jul 31, 2018 Initial ECG Impression Time: 16:18 Initial ECG Rate: 105 Initial ECG Rhythm: S.Tach Initial ECG Intervals: Normal Initial ECG Impression: Normal, Nonspecific Changes Comment Mild sinus tach without ST elevation or depression. Diagnostic Imaging Diagonstic Imaging: Xray Plain Films/CT/US/NM/MRI: chest (1v) Comments NAME: ALLISON BRANNON [facility] REC#: [id number] PHYSICIAN: MELANIE QUINONEZ MD CC: TON ENG MD; MELANIE QUINONEZ Page 1 of 1 RADIOLOGY REPORT VIA [place], [place] CC: TON ENG MD; MELANIE QUINONEZ Page 1 of 1 RADIOLOGY REPORT NAME: ALLISON BRANNON [facility] REC#: [id number] PT STATUS: REG ER : 1970 PHYSICIAN: MELANIE QUINONEZ MD ADMIT DATE: 07/31/18/ER Signed Date of Exam: 07/31/18 CHEST 1 VIEW, AP/PA ONLY INDICATION: Chest pressure when waking up this morning. Pain has moved posteriorly in the thorax between the shoulder blades. FINDINGS: Portable upright view of the chest is unchanged from 12/11/2016. The lungs are clear. The heart, mediastinum, and pulmonary vascularity are normal. There are no pleural effusions. There is no evidence of widening of the aorta. IMPRESSION: Normal chest. Dictated by: Dictated on workstation # [id number] Dict: 07/31/181717 Trans: 07/31/181729 Interpreted by: TON ENG MD Electronically signed by: TON ENG MD 07/31/181729 Reviewed: Reviewed by Me Departure Impression Primary Impression: Vertigo Additional Impressions: Fall Qualified Codes: W19.XXXA - Unspecified fall, initial encounter Thoracic back pain Qualified Codes: M54.6 - Pain in thoracic spine Chest pain Qualified Codes: R07.1 - Chest pain on breathing History of Bret-en-Y gastric bypass Hypomagnesemia UTI (urinary tract infection) Qualified Codes: N30.00 - Acute cystitis without hematuria Chronic hyponatremia Disposition: HOME, SELF-CARE Condition: Stable Departure-Patient Inst. Decision time for Depature: 19:23 Referrals: [facility] (PCP/Family) Primary Care Physician Patient Instructions: Vertigo (a Type of Dizziness) (DC) Add. 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 Use some Tylenol 1000 mg every 8 hours as needed for your back. You can also use creams such as icy hot, Biofreeze and or ice alternated with heat. Follow-up with your primary care doctor to get referral to either a semi driver or general surgeon to have your Bret-en-Y gastric bypass addressed in terms of vitamin levels, possibility that is causing your pain. You can also use either Zantac twice a day or Pepcid twice a day over-the- counter over the next couple weeks and see if that helps her symptoms. Continue taking her vitamin. 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 If the culture changes the need for antibiotic we'll call you and call out a new antibiotic. Drink lots of fluids. All discharge instructions reviewed with patient and/or family. Voiced understanding. Scripts Fluconazole (Diflucan) 100 Mg Tablet 100 MG PO ONCE for 1 Day, #1 TAB 0 Refills Prov: MELANIE QUINONEZ 07/31/18 Cephalexin (Cephalexin) 500 Mg Tablet 500 MG PO BID for 7 Days, #14 TAB 0 Refills Prov: MELANIE QIUNONEZ 07/31/18 MELANIE QUINONEZ Jul 31, 2018 16:54
[2018-07-31 17:00] LABS: INR 0.9 (0.8-1.4); PROTHROMBIN TIME PATIENT 12.3 SEC (12.2-14.7)
[2018-07-31 17:06] LABS: ALANINE AMINOTRANSFERASE 12 U/L (0-55); ALBUMIN 3.9 GM/DL (3.2-4.5); ALKALINE PHOSPHATASE 70 U/L (40-136); BILIRUBIN,TOTAL 0.3 MG/DL (0.1-1.0); BUN/CREATININE RATIO 9; CALCIUM 9.4 MG/DL (8.5-10.1); CARBON DIOXIDE 17 MMOL/L (21-32); CHLORIDE 100 MMOL/L (98-107); GFR ESTIMATED 48; GLUCOSE 232 MG/DL (70-105); LIPASE 26 U/L (8-78); MAGNESIUM 1.6 MG/DL (1.8-2.4); POTASSIUM 3.8 MMOL/L (3.6-5.0); SODIUM 133 MMOL/L (135-145); TOTAL PROTEIN 7.3 GM/DL (6.4-8.2)
[2018-07-31 17:12] LABS: MYOGLOBIN SERUM 50.9 NG/ML (10.0-92.0)
--- NOTE | 2018-07-31 17:25 | Diagnostic Imaging Report ---
INDICATION: Chest pressure when waking up this morning. Pain has moved posteriorly in the thorax between the shoulder blades. FINDINGS: Portable upright view of the chest is unchanged from 12/11/2016. The lungs are clear. The heart, mediastinum, and pulmonary vascularity are normal. There are no pleural effusions. There is no evidence of widening of the aorta. IMPRESSION: Normal chest. Dictated by: Dictated on workstation # [id number]
[2018-07-31 18:47] LABS: BILIRUBIN,URINE NEGATIVE (NEGATIVE); CLARITY,URINE CLEAR; COLOR,URINE YELLOW; GLUCOSE, URINE (UA) NEGATIVE (NEGATIVE); KETONES,URINE NEGATIVE (NEGATIVE); LEUKOCYTE ESTERASE ,URINE 2+ (NEGATIVE); NITRITE,URINE POSITIVE (NEGATIVE); PH,URINE 5 (5-9); PROTEIN,URINE NEGATIVE (NEGATIVE); UROBILINOGEN,URINE NORMAL (NORMAL)
[2018-07-31 19:08] LABS: AMPHETAMINE SCREEN, URINE POSITIVE (NEGATIVE); BENZODIAZEPINES SCREEN URINE POSITIVE (NEGATIVE); CANNABINOID SCREEN, URINE NEGATIVE (NEGATIVE); COCAINE SCREEN URINE NEGATIVE (NEGATIVE); METHAMPHETAMINE SCREEN URINE S NEGATIVE (NEGATIVE)
[2018-07-31 19:09] LABS: BARBITURATE SCREEN URINE NEGATIVE (NEGATIVE); METHADONE STAT NEGATIVE (NEGATIVE); OPIATE SCREEN URINE POSITIVE (NEGATIVE); OXYCODONE STAT NEGATIVE (NEGATIVE); PROPOXYPHENE STAT NEGATIVE (NEGATIVE); TRICYCLIC ANTIDEPRESSANTS SCRE POSITIVE (NEGATIVE)
[2018-07-31 19:12] LABS: BACTERIA,URINE LARGE /HPF
[2018-07-31] MEDS ORDERED: FLUC100T PO (19:29)
[2018-07-31] MEDS ORDERED: CEPH500T PO (19:29)
== END 2018-07-31 19:42 | disposition home or self-care (01) ==
LOC: EDUNIT# 16:12 → ER 16:14
DX: R07.9 Chest pain, unspecified (principal); R42 Dizziness and giddiness; M54.6 Pain in thoracic spine; N39.0 Urinary tract infection, site not specified; E87.1 Hypo-osmolality and hyponatremia; E83.42 Hypomagnesemia; I10 Essential (primary) hypertension; G43.909 Migraine, unspecified, not intractable, without status migrainosus; E11.9 Type 2 diabetes mellitus without complications; Z88.6 Allergy status to analgesic agent; Z98.84 Bariatric surgery status; Z90.89 Acquired absence of other organs; Z90.710 Acquired absence of both cervix and uterus; W19.XXXA Unspecified fall, initial encounter
CPT/HCPCS: 36415; 71045; 80053; 80306; 81000; 83690; 83735; 83874; 83880; 84484; 85025; 85610; 85730; 87077; 87088; 87186; 93005; 93041

== ENCOUNTER → 2018-08-05 | Outpatient (CLI) | payer BC, OTHER ==
[~2018-08-05] MED LIST changes: +CEPH500T PO; +FLUC100T PO
--- NOTE | 2018-08-05 16:41 | Diagnostic Imaging Report ---
INDICATION: Routine screening. COMPARISON: Prior mammogram from 02/12/2017 and 12/25/2015. EXAMINATION: 2D and 3D bilateral screening mammography was performed with CAD. The current study was also evaluated with a Computer Aided Detection (CAD) system. FINDINGS: Both breasts remain heterogeneously dense, limiting the sensitivity of mammography. The parenchymal pattern is stable. No mass or malignant appearing microcalcifications are seen. Axillae are unremarkable. IMPRESSION: No mammographic features suspicious for malignancy are identified. ACR BI-RADS Category 1: Negative. Result letter will be mailed to the patient. Note: At least 10% of breast cancer is not imaged by mammography. Dictated on workstation # [id number]
== END ==
LOC: RAD 14:05
PROVIDERS: ATTEND Obstetrics & Gynecology
DX: Z12.31 Encounter for screening mammogram for malignant neoplasm of breast (principal)
CPT/HCPCS: 77067

== ENCOUNTER → 2018-09-05 | Outpatient (CLI) | payer OTHER ==
--- NOTE | 2018-09-05 13:53 | Diagnostic Imaging Report ---
INDICATION: 2 weeks post fall, pain in the thumb some swelling TECHNIQUE: 2 views of the left forearm. CORRELATION STUDY: None FINDINGS: The radius and ulna have an unremarkable appearance. The visualized portions of the elbow and wrist are unremarkable. Soft tissues are unremarkable. IMPRESSION: 1. Negative for acute bony abnormality of the forearm. Dictated by: Dictated on workstation # [id number]
--- NOTE | 2018-09-05 19:45 | Diagnostic Imaging Report ---
INDICATION: Fall with pain in the region of the distal radius. TIME OF EXAM: 1:16 PM 3 views left wrist were obtained. FINDINGS: The distal radius and ulna are intact. Carpus appears intact. No fractures are seen. IMPRESSION: No acute bony abnormality is detected. Dictated by: Dictated on workstation # [id number]
== END ==
LOC: RAD 12:42
PROVIDERS: ATTEND Nurse Practitioner Family
DX: M79.89 Other specified soft tissue disorders (principal); M25.532 Pain in left wrist; W19.XXXA Unspecified fall, initial encounter; F31.31 Bipolar disorder, current episode depressed, mild; E53.8 Deficiency of other specified B group vitamins; I10 Essential (primary) hypertension; M79.7 Fibromyalgia; F41.8 Other specified anxiety disorders; E78.00 Pure hypercholesterolemia, unspecified; G25.81 Restless legs syndrome; Z98.84 Bariatric surgery status; Z20.811 Contact with and (suspected) exposure to meningococcus; Z79.899 Other long term (current) drug therapy
CPT/HCPCS: 73090; 73110

== ENCOUNTER 2018-12-15 06:35 | Outpatient (CLI) | payer OTHER ==
[~2018-12-15] VITALS: Ht 165.1 cm; Wt 90.7 kg
[~2018-12-15 06:35] MED LIST changes: +METR-145; -METR-197
[2018-12-15] MEDS ORDERED: TOPI25TA10 PO (13:59)
[2018-12-15] MEDS ORDERED: SITA100T12 PO (13:59)
[2018-12-15] MEDS ORDERED: PREG100C PO (13:59)
[2018-12-15] MEDS ORDERED: DULO60CA6 PO (13:59)
[2018-12-15] MEDS ORDERED: L.AC1CAP6 PO (13:59)
[2018-12-15] MEDS ORDERED: METF-399 PO (13:59)
[2018-12-15] MEDS ORDERED: ROPI0.5T2 PO (13:59)
[2018-12-15] MEDS ORDERED: CYCL10TA9 PO (13:59)
[2018-12-15] MEDS ORDERED: [UNRECOGNIZED DRUG - OTHER] PO (14:00)
[2018-12-15] MEDS ORDERED: HYDR-3816 PO (14:00)
== END 2018-12-15 14:32 | disposition home or self-care (01) ==
LOC: PREOP 06:35
PROVIDERS: ATTEND Surgery
DX: Z01.818 Encounter for other preprocedural examination (principal)

== ENCOUNTER 2018-12-19 10:29 | Day surgery (SDC) | payer BC, OTHER ==
[~2018-12-19] VITALS: Ht 165.1 cm; Wt 90.7 kg
[~2018-12-19 10:29] MED LIST changes: +CYCL10TA9 PO; +DULO60CA6 PO; +HYDR-3816 PO; +L.AC1CAP6 PO; +METF-399 PO; +PREG100C PO; +ROPI0.5T2 PO; +SITA100T12 PO; +TOPI25TA10 PO; +[UNRECOGNIZED DRUG - OTHER] PO
[2018-12-19] MEDS ORDERED: LACTATED RINGERS 1,000 ML IV ONE (10:40)
[2018-12-19] MEDS ORDERED: LACTATED RINGERS 1,000 ML IV STA (10:57)
[2018-12-19 11:00] VITALS: BP 151/89
[2018-12-19] MEDS ORDERED: HURRICAINE EXT TUBE (BENZOCAINE) XX PRN (11:00)
[2018-12-19] MEDS ORDERED: PROPOFOL INJECTION 50 ML IV ONE ×2 (11:09→11:40)
[2018-12-19] MEDS ORDERED: MIDAZOLAM 2 MG/2 ML (VERSED) VIAL ONE (11:09)
--- NOTE | 2018-12-19 11:24 | Progress Note-Pre Operative ---
Pre-Operative Progress Note H&P Reviewed The H&P was reviewed, patient examined and no changes noted. Time Seen by Provider: 11:14 Date H&P Reviewed: Dec 19, 2018 Time H&P Reviewed: 11:15 Pre-Operative Diagnosis: N/V, LLQ abd pain, unexplained weight loss TROY HERNANDEZ DO Dec 19, 2018 11:23
[2018-12-19] MEDS ORDERED: HURRICAINE EXT TUBE (BENZOCAINE) ONE (11:57)
--- NOTE | 2018-12-19 12:14 | Progress Note-Post Operative ---
Post-Operative Progess Note Surgeon (s)/Parent Aide (s) Surgeon TROY HERNANDEZ DO Parent Aide: none Pre-Operative Diagnosis N/V, LLQ abd pain, unexplained weight loss Post-Operative Diagnosis Gatritis Poor prep Internal hemorrhoids Procedure & Operative Findings Date of Procedure 12/19/18 Procedure Performed/Findings EGD with bx Colonoscopy Anesthesia Type IV sedation by GLUING MACHINE OPERATOR AUTOMATIC Estimated Blood Loss Estimated blood loss (mL): scant Specimens/Packing Specimens Removed GJ jxn TROY Jeter DO Dec 19, 2018 12:14
[2018-12-19 12:30] VITALS: BP 138/92
[2018-12-19 13:00] VITALS: BP 154/93
--- NOTE | 2018-12-19 13:04 | Endoscopy Discharge Instruct ---
Endo Procedure/Findings Findings 1.: Gastritis 2.: Internal Hemorrhoids Discharge Instructions - Activity: You might feel a little sleepy until tomorrow. This is due to the medicine you received to relax you. Until tomorrow, you should: NOT drive a car, operate machinery or power tools. NOT drink any alcoholic beverages. NOT make any important decisions or sign importortant papers. Do not return to work until tomorrow, unless otherwise instructed. Resume previous activities tomorrow. Diet: Start by taking liquids. If you tolerate liquids, advance to solid food. make an appointment for one week Instructions: 1.: Colonoscopy in 1 year Notify Physician - If you experience excessive bleeding, unusual abdominal pain, fever, or chest pain, contact your doctor immediately. Follow-Up: - I have received and understand the above instructions and will call my doctor if I have any further questions. Patient Signature Date Nurse Signature Other (Relationship) TROY HERNANDEZ DO Dec 19, 2018 13:04
[2018-12-19 13:30] VITALS: BP 154/93
--- NOTE | 2018-12-19 14:36 | Anesthesia-General Post-Op ---
MAC Patient Condition Mental Status/LOC: Same as Preop Cardiovascular: Satisfactory Nausea/Vomiting: Absent Respiratory: Satisfactory Pain: Controlled Complications: Absent Post Op Complications Complications None Follow Up Care/Instructions Patient Instructions None needed. Anesthesiology Discharge Order Discharge Order Patient is doing well, no complaints, stable vital signs, no apparent adverse anesthesia problems. No complications reported per nursing. SATYA LA CRNA Dec 19, 2018 14:36
--- NOTE | 2018-12-20 05:37 | OPERATIVE REPORT ---
DATE OF SERVICE: 12/19/2018 PREOPERATIVE DIAGNOSES: Unexplained weight loss, gastritis, history of Bret-en-Y bypass. CT scan, which showed a duodenal diverticulum and some rectal bleeding. POSTOPERATIVE DIAGNOSES: 1. Gastritis. 2. Internal hemorrhoids. 3. Poor prep. PROCEDURES: 1. EGD with biopsy. 2. Colonoscopy. SURGEON: French Gregory DO. SINGLE ENDING MACHINE OPERATOR: None. ANESTHESIA: IV sedation by the PSYCHIATRIC AIDE. SPECIMEN: Biopsy from the gastrojejunal junction. BLOOD LOSS: Scant. FLUIDS: Per anesthesia. POSTOPERATIVE CONDITION: Stable. INDICATION FOR PROCEDURE: The patient is a 48-year-old female who has been having some unexplained weight loss. She states 100 pounds was actually seen by a GI physician set up for EGD and colonoscopy. Unfortunately, found out that her insurance would not cover and had to come to see me. FINDINGS: The patient had a little bit of gastritis at the gastrojejunal junction. Unfortunately then in the colon, she had a very poor prep, a lot of retained fecal material solid and liquid suctioned out about 700 mL of liquid, but still could not get all of it out. All I could see there was internal hemorrhoids. PROCEDURE NOTE: After informed consent was obtained, the patient was brought to the endoscopy suite, placed in the bed in left lateral decubitus position. She was administered IV sedation by the PSYCHIATRIC AIDE, who then monitored her vitals the entire time, heart rate, blood pressure and pulse ox and then started with the EGD, pushed the scope down the mouth through the esophagus into the stomach. She had a very short stomach because of her Bret-en-Y connecting right jejunum, looked like she had a little bit of irritation at the GJ junction, did not see ulcers, elected to do a biopsy here, then pushed down the small intestine and into both limbs, pushed way down about 20 to 30 cm, unable to get to see this duodenal diverticula, did not see any other masses or ulcers or irritation. At this point, then removed the scope, switched cameras, switched gloves and went below to try and do the colonoscopy. Unfortunately, the patient had a lot of retained liquid fecal material as well as solid fecal material, took pictures of this, was able to get all the way to the appendiceal orifice, pushed the scope into the appendiceal orifice then slowly withdrew insufflating to look circumferentially at the durand looking at the cecum up the ascending colon to the hepatic flexure and transverse colon, splenic flexure, into the descending colon and down the sigmoid and finally in the rectum, retroflexed the rectal vault. She had some internal hemorrhoids. Pictures were taken. Again, could not clear this colon because of this very poor prep. She will need a repeat colonoscopy within a year. Scope was removed. The patient tolerated the procedure and recovered in the endoscopy suite. Job ID: [id number] DocumentID: [id number] Dictated Date: 12/19/2018 18:45:15 Lever Tender Date: 12/20/2018 05:36:41 Dictated By: FRENCH GREGORY DO
== END 2018-12-19 13:30 | disposition home or self-care (01) ==
LOC: ENDO 10:29
PROVIDERS: ATTEND Surgery
DX: K29.70 Gastritis, unspecified, without bleeding (principal); K64.8 Other hemorrhoids; K31.89 Other diseases of stomach and duodenum; R63.4 Abnormal weight loss; E11.9 Type 2 diabetes mellitus without complications; F41.9 Anxiety disorder, unspecified; F32.9 Major depressive disorder, single episode, unspecified; G43.909 Migraine, unspecified, not intractable, without status migrainosus; Z79.84 Long term (current) use of oral hypoglycemic drugs; Z79.899 Other long term (current) drug therapy

== ENCOUNTER 2019-06-24 09:37 | Day surgery (SDC) | payer BC, OTHER ==
[~2019-06-24] VITALS: Ht 165 cm; Wt 90.2 kg
[2019-06-24] VITALS (13 sets, daily range): BP systolic 90–131; BP diastolic 36–76
[~2019-06-24 09:37] MED LIST changes: -DULO60CA58; +DULO60CA59
[2019-06-24] MEDS ORDERED: ONDANSETRON 4 MG/2 ML (SDV) Z0FRAN IVP ONE (09:45)
[2019-06-24] MEDS ORDERED: fentaNYL INJECTION 100 MCG/2 ML AMP IVP ONE ×3 (10:00→16:30)
[2019-06-24] MEDS: NS IV 1000 ML 1,000 ML IV SCH ×2 (10:00→20:03)
[2019-06-24 10:05] LABS: BASOPHILS % (AUTO) 0 % (0-10); EOSINOPHILS % (AUTO) 1 % (0-10); HEMATOCRIT 40 % (35-52); HEMOGLOBIN 13.6 G/DL (11.5-16.0); LYMPHOCYTES # (AUTO) 1.6 X 10^3 (1.0-4.0); LYMPHOCYTES % (AUTO) 20 % (12-44); MEAN CORPUSCULAR HEMOGLOBIN 28 PG (25-34); MEAN CORPUSCULAR HGB CONC 34 G/DL (32-36); MEAN CORPUSCULAR VOLUME 82 FL (80-99); MEAN PLATELET VOLUME 9.2 FL (7.4-10.4); MONOCYTES # (AUTO) 0.3 X 10^3 (0.0-1.0); MONOCYTES % (AUTO) 4 % (0-12); NEUTROPHILS # (AUTO) 6.2 X 10^3 (1.8-7.8); NEUTROPHILS % (AUTO) 76 % (42-75); PLATELET COUNT 550 10^3/uL (130-400); RED CELL DISTRIBUTION WIDTH 16.1 % (10.0-14.5); WHITE BLOOD COUNT 8.2 10^3/uL (4.3-11.0)
[2019-06-24 10:19] LABS: INR 0.9 (0.8-1.4); PROTHROMBIN TIME PATIENT 12.8 SEC (12.2-14.7)
[2019-06-24 10:27] LABS: ALANINE AMINOTRANSFERASE 21 U/L (0-55); ALBUMIN 2.6 GM/DL (3.2-4.5); ALKALINE PHOSPHATASE 115 U/L (40-136); BILIRUBIN,TOTAL 0.3 MG/DL (0.1-1.0); BUN/CREATININE RATIO 10; CALCIUM 7.6 MG/DL (8.5-10.1); CARBON DIOXIDE 24 MMOL/L (21-32); CHLORIDE 104 MMOL/L (98-107); CREATININE SERUM 0.94 MG/DL (0.60-1.30); GFR ESTIMATED > 60; GLUCOSE 173 MG/DL (70-105); POTASSIUM 3.4 MMOL/L (3.6-5.0); SODIUM 139 MMOL/L (135-145); TOTAL PROTEIN 5.5 GM/DL (6.4-8.2)
--- NOTE | 2019-06-24 10:32 | NUR ---
IV IN LEFT AC NOT WORKING. IV DC. ATTEMPT FOR OTHER IV IN LEFT HAND UNSUCCESSFUL. ASKED PETER TO GO IN AND START IV ON HER. DR LALA NOTIFEID OF BP OF 89/48. PT CONTINUES TO COMPLAIN OF PAIN. DR LALA AWARE.
--- NOTE | 2019-06-24 10:41 | NUR ---
JEANNINE STATES HE HAS TRIED X2 FOR AN IV. NOTIFIED WHO WANTS TO WATCH HER BP AND GO AHEAD AND SEND HER TO CT.
[2019-06-24] MEDS ORDERED: PROMETHAZINE INJ 25 MG/ML (PHENERGAN) AMP IVP ONE (10:45)
--- NOTE | 2019-06-24 10:50 | NUR ---
MADE AWARE OF BP 75 ET THAT I WOULD LIKE TO WAIT UNTILL 11OO NURSE ARRIVED TO TAKE PT TO CT WHICH WAS OK WITH. FLUIDS PLACED ON PRESSURE BAG.
[2019-06-24] MEDS ORDERED: HOLD METFORMIN - RECEIVED CONTRAST 20 ML VIAL IV SCH (11:00)
[2019-06-24] MEDS ORDERED: IOHEXOL 350 MG/ML 100 ML (OMNIPAQUE 350) VIAL IV ONE (11:00)
[2019-06-24] MEDS ORDERED: NS 100 ML (IVPB) BAG IV ONE (11:00)
--- NOTE | 2019-06-24 11:01 | ED General ---
General Chief Complaint: General Problems/Pain Stated Complaint: BODY ACHES Nursing Triage Note: ARRIVED VIA EMS FROM HOME WITH GENARLIZED PAIN ALL OVER AND NOT FEELING WELL. ALSO COMPLAINS OF CHEST PAIN. Nursing Sepsis Screen: No Definite Risk Source of Information: Patient, EMS Exam Limitations: No Limitations History of Present Illness Date Seen by Provider: Jun 24, 2019 Time Seen by Provider: 09:38 Initial Comments This 49-year-old woman presents to the emergency room via EMS with complaints of generalized myalgia, weakness, lethargy, and altered mental status as reported by EMS. She does appear lethargic. Blood pressures were low normotensive for EMS. Patient particularly complained of pain across the shoulder girdle. She reports having some nausea, vomiting, and diarrhea 2 days ago. She now has nausea without vomiting. Family reported significant psychosocial stress recently as well. She is afebrile on arrival. Fingerstick blood sugar is 163. A review of patient's chart notes multiple sedating medications including baclofen and Lyrica. Allergies and Home Medications Allergies Coded Allergies: NSAIDS (Non-Steroidal Anti-Inflamma (Verified Adverse Reaction, Unknown, 12/15/18) UNABLE TO TAKE DUE TO GASTRIC SURG Home Medications Cyclobenzaprine HCl 10 Mg Tablet, 10 MG PO BID, (Reported) Duloxetine HCl 60 Mg Capsule.dr, 60 MG PO DAILY, (Reported) Hydrocodone/Acetaminophen 1 Each Tablet, 1 TAB PO Q4H PRN for PAIN-MODERATE, (Reported) L.acidoph & ParacaseiB.lactis 1 Each Capsule, 1 EACH PO DAILY, (Reported) Metformin HCl 1,000 Mg Tablet, 1,000 MG PO BID, (Reported) Pregabalin 100 Mg Capsule, 100 MG PO BID, (Reported) Ropinirole HCl 0.5 Mg Tablet, 0.5-1 MG PO HS, (Reported) Sitagliptin Phosphate 100 Mg Tablet, 100 MG PO DAILY, (Reported) Topiramate 25 Mg Tablet, 50 MG PO HS, (Reported) [Lumiday] , 2 CAP PO DAILY, (Reported) Patient Home Medication List Home Medication List Reviewed: Yes Review of Systems Review of Systems Constitutional: see HPI, weakness, other (lethargy) EENTM: see HPI, no symptoms reported Respiratory: no symptoms reported Cardiovascular: see HPI Gastrointestinal: see HPI Genitourinary: no symptoms reported : No Musculoskeletal: see HPI Skin: no symptoms reported Psychiatric/Neurological: See HPI Hematologic/Lymphatic: No Symptoms Reported Immunological/Allergic: no symptoms reported Past Lysdqsp-Eydrdz-Oqxryz Hx Past Med/Social Hx: Reviewed Nursing Past Med/Soc Hx Patient Social History 2nd Hand Smoke Exposure: No Recent Foreign Travel: No Contact w/Someone Who Travel: No Recent Infectious Disease Expo: No Recent Hopitalizations: No Immunizations Up To Date PED Vaccines UTD: Yes Date of Influenza Vaccine: Jun 27, 2018 Seasonal Allergies Seasonal Allergies: No Past Medical History Surgeries: Yes (D&C x5 [id number], EGD and colonoscopy, ABDOMINOPLASTY) Abdominal, Appendectomy, Gallbladder, Hysterectomy, Oophorectomy Respiratory: No Cardiac: Yes Hypertension Neurological: Yes Headaches /Migraines : No Reproductive Disorders: No [employer] History: Hysterectomy Sexually Transmitted Disease: No HIV/AIDS: No Genitourinary: Yes UTI-Chronic Gastrointestinal: Yes (N/V, history of gastritis) Hemorrhoids Musculoskeletal: Yes Fibromyalgia Endocrine: Yes Diabetes, Non-Insulin dep HEENT: Yes (GLASSES) Loss of Vision: Bilateral Hearing Impairment: Denies Cancer: No Psychosocial: Yes Anxiety, Depression Integumentary: No Blood Disorders: No Adverse Reaction/Blood Tranf: No Family Medical History No Pertinent Family Hx Physical Exam-Suspected Sepsis Physical Exam Vital Signs Vital Signs - First Documented 06/24/19 09:37 Temp 36.8 Pulse 83 Resp 16 B/P (MAP) 88/52 (64) Pulse Ox 97 O2 Delivery Room Air Capillary Refill : Less Than 3 Seconds Blood Pressure Mean: 64 Height, Weight, BMI Height: 5'5.00" Weight: 200lbs. 0.0oz. 90.056208aq; 29.00 BMI Method:Stated General Appearance: WD/WN, Mild Distress HEENT: PERRL/EOMI, Normal ENT Inspection, Pharynx Normal Neck: Normal Inspection Respiratory: No Accessory Muscle Use, No Respiratory Distress, Crackles (faint crackles in bases) Cardiovascular: Regular Rate, Rhythm, No Edema, No Murmur, Other (peripheral pulses palpable but weak) Gastrointestinal: Soft, Abnormal Bowel Sounds (decreased bowel sounds), Guarding, Tenderness (significant tenderness throughout the abdomen. Pain with placement of the stethoscope for auscultation) Extremity: Normal Inspection, No Pedal Edema Neurologic/Psychiatric: Alert, Oriented x3, No Motor/Sensory Deficits, Normal Mood/Affect, dehydrogenation converter helper II-XII Norm as Tested Skin: normal color, warm/dry Focused Exam Sepsis Stage: Septic Shock Possible Source: GI Tract/Intra-Abdominal Lactate Level 06/24/19 09:46: Lactic Acid Level 2.41*H 06/24/19 12:50: Lactic Acid Level 3.04*H Time of Focused Exam: 13:25 Respiratory: Lungs Clear, Normal Breath Sounds, No Accessory Muscle Use Cardiovascular: Regular Rate, Rhythm, No Edema, No Murmur Capillary Refill: Less Than 3 Seconds Peripheral Pulses: 1+ Radial Pulses (R) Skin: normal color, warm/dry Lactic Acid Level Within 3hrs of presentation: Admin fluids, Admin 30ml/kg IBW due to BMI>30, Admin ABX, Blood cultures prior to ABX's, Focus exam, Lactate level, Vasopressin therapy Progress/Results/Core Measures Suspected Sepsis Recent Fever Within 48 Hours: No Infection Criteria Present: Suspected New Infection New/Unexplained Altered Menta: No Sepsis Screen: No Definite Risk SIRS Temperature: Pulse: 83 Respiratory Rate: 16 Laboratory Tests 06/24/19 09:46: White Blood Count 8.2 Blood Pressure 88 /52 Mean: 64 06/24/19 09:46: Lactic Acid Level 2.41*H 06/24/19 12:50: Lactic Acid Level 3.04*H Laboratory Tests 06/24/19 09:46: Creatinine 0.94, INR Comment 0.9, Platelet Count 550H, Total Bilirubin 0.3 Results/Orders Lab Results Laboratory Tests Test 06/24/19 09:41 06/24/19 09:46 06/24/19 12:50 Range/Units Glucometer 163 H 161 H 70-110 MG/DL White Blood Count 8.2 4.3-11.0 10^3/uL Red Blood Count 4.87 4.35-5.85 10^6/uL Hemoglobin 13.6 11.5-16.0 G/DL Hematocrit 40 35-52 % Mean Corpuscular Volume 82 80-99 FL Mean Corpuscular Hemoglobin 28 25-34 PG Mean Corpuscular Hemoglobin Concent 34 32-36 G/DL Red Cell Distribution Width 16.1 H 10.0-14.5 % Platelet Count 550 H 130-400 10^3/uL Mean Platelet Volume 9.2 7.4-10.4 FL Neutrophils (%) (Auto) 76 H 42-75 % Lymphocytes (%) (Auto) 20 12-44 % Monocytes (%) (Auto) 4 0-12 % Eosinophils (%) (Auto) 1 0-10 % Basophils (%) (Auto) 0 0-10 % Neutrophils # (Auto) 6.2 1.8-7.8 X 10^3 Lymphocytes # (Auto) 1.6 1.0-4.0 X 10^3 Monocytes # (Auto) 0.3 0.0-1.0 X 10^3 Eosinophils # (Auto) 0.0 0.0-0.3 10^3/uL Basophils # (Auto) 0.0 0.0-0.1 10^3/uL Prothrombin Time 12.8 12.2-14.7 SEC INR Comment 0.9 0.8-1.4 Activated Partial Thromboplast Time 27 24-35 SEC Sodium Level 139 135-145 MMOL/L Potassium Level 3.4 L 3.6-5.0 MMOL/L Chloride Level 104 98-107 MMOL/L Carbon Dioxide Level 24 21-32 MMOL/L Anion Gap 11 5-14 MMOL/L Blood Urea Nitrogen 9 7-18 MG/DL Creatinine 0.94 0.60-1.30 MG/DL Estimat Glomerular Filtration Rate > 60 BUN/Creatinine Ratio 10 Glucose Level 173 H 70-105 MG/DL Lactic Acid Level 2.41 *H 3.04 *H 0.50-2.00 MMOL/L Calcium Level 7.6 L 8.5-10.1 MG/DL Corrected Calcium 8.7 8.5-10.1 MG/DL Total Bilirubin 0.3 0.1-1.0 MG/DL Aspartate Amino Transf (AST/SGOT) 23 5-34 U/L Alanine Aminotransferase (ALT/SGPT) 21 0-55 U/L Alkaline Phosphatase 115 40-136 U/L Troponin I < 0.028 <0.028 NG/ML C-Reactive Protein High Sensitivity 2.74 H 0.00-0.50 MG/DL Total Protein 5.5 L 6.4-8.2 GM/DL Albumin 2.6 L 3.2-4.5 GM/DL Lipase 12 8-78 U/L Micro Results Microbiology 06/24/19 Influenza Types A,B Antigen ([facility]) - Final, Complete My Orders Orders - BRUEGGEMANN,SONAL T MD Cbc With Automated Diff (06/24/19 09:43) Comprehensive Metabolic Panel (06/24/19 09:43) Blood Culture (06/24/19 09:43) Sputum Culture (06/24/19 09:43) Urinalysis (06/24/19 09:43) Urine Culture (06/24/19 09:43) Protime With Inr (06/24/19 09:43) Partial Thromboplastin Time (06/24/19 09:43) Chest 1 View, Ap/Pa Only (06/24/19 09:43) Ed Iv/Invasive Line Start (06/24/19 09:43) Ed Iv/Invasive Line Start (06/24/19 09:43) Vital Signs Adult Sepsis Patie Q15M (06/24/19 09:43) O2 (06/24/19 09:43) Remove Rings In Anticipation O (06/24/19 09:43) Lactic Acid Analyzer (06/24/19 09:43) Influenza A And B Antigens (06/24/19 09:43) Ns Iv 1000 Ml (Sodium Chloride 0.9%) (06/24/19 09:43) Hs C Reactive Protein (06/24/19 09:43) Troponin I (06/24/19 09:43) Accucheck Stat ONCE (06/24/19 09:43) Ekg Tracing (06/24/19 09:43) Monitor-Rhythm Ecg Trace Only (06/24/19 09:43) Ondansetron Injection (Zofran Injectio (06/24/19 09:45) Fentanyl Injection (Sublimaze Injection (06/24/19 10:00) Ct Abdomen/Pelvis W (06/24/19 10:32) Lipase (06/24/19 10:32) Promethazine Injection (Phenergan Injec (06/24/19 10:45) Iohexol Injection (Omnipaque 350 Mg/Ml 1 (06/24/19 11:00) Received Contrast (Hold Metformin- Contr (06/24/19 11:00) Ns (Ivpb) (Sodium Chloride 0.9% Ivpb Bag (06/24/19 11:00) Ed Iv/Invasive Line Start (06/24/19 11:41) Lactated Ringers (Lr 1000 Ml Iv Solution (06/24/19 11:41) Piperacillin/Tazobactam (Bulk) (Zosyn In (06/24/19 12:00) Fentanyl Injection (Sublimaze Injection (06/24/19 12:00) Norepinephrine (Levophed) (06/24/19 12:15) Fluconazole 200 Mg/100 Ml (Diflucan Iv) (06/24/19 12:45) Vancomycin Injection (Vancomycin Injecti (06/24/19 12:45) Vancomycin Injection (Vancomycin Injecti (06/24/19 12:51) [facility]sa Screen Physician Request (06/24/19 13:07) [facility] Nursing Screening/Treatme .admit (06/24/19 13:07) Morphine Injection (Morphine Injection (06/24/19 13:28) Bupivacaine/Epinephrine 0.25% (Marcaine (06/24/19 13:40) Hydromorphone Injection (Dilaudid Inject (06/24/19 14:00) Medications Given in ED Current Medications Medications Dose Ordered Sig/Lidya Route Start Time Stop Time Status Last Admin Dose Admin Fentanyl Citrate 25 mcg ONCE ONCE IVP 06/24/19 10:00 06/24/19 10:01 DC 06/24/19 10:04 25 MCG Fentanyl Citrate 25 mcg ONCE ONCE IVP 06/24/19 12:00 06/24/19 12:01 DC 06/24/19 12:02 25 MCG Fluconazole/ Sodium Chloride 100 ml @ 100 mls/hr ONCE ONCE IV 06/24/19 12:45 06/24/19 13:44 DC 06/24/19 13:56 100 MLS/HR Iohexol 100 ml ONCE ONCE IV 06/24/19 11:00 06/24/19 11:12 DC 06/24/19 11:29 100 ML Lactated Ringer's 1,000 ml @ 0 mls/hr Q0M ONCE IV 06/24/19 11:41 06/24/19 11:43 DC 06/24/19 11:51 1,000 MLS/HR Ondansetron HCl 8 mg ONCE ONCE IVP 06/24/19 09:45 06/24/19 09:46 DC 06/24/19 10:00 8 MG Piperacillin Sod/ Tazobactam Sod 4.5 gm/Sodium Chloride 120 ml @ 240 mls/hr ONCE ONCE IV 06/24/19 12:00 06/24/19 12:29 DC 06/24/19 13:05 240 MLS/HR Promethazine HCl 6.25 mg ONCE ONCE IVP 06/24/19 10:45 06/24/19 10:46 DC 06/24/19 10:47 6.25 MG Sodium Chloride 100 ml ONCE ONCE IV 06/24/19 11:00 06/24/19 11:12 DC 06/24/19 11:29 80 ML Vital Signs/I&O 06/24/19 06/24/19 09:37 14:34 Temp 36.8 Pulse 83 82 Resp 16 16 B/P (MAP) 88/52 (64) 109/66 Pulse Ox 97 97 O2 Delivery Room Air Room Air Capillary Refill : Less Than 3 Seconds Blood Pressure Mean: 64 Point of Care Testing Finger Stick Blood Glucose: 163 Blood Glucose Action Taken: RN notified Progress Note #1: Time: 10:56 Progress Note Septic workup is being pursued. Patient's blood pressure is still hypotensive after 1 L of IV normal saline. A second liter of IV saline is being infused. Labs have been reviewed. Lactic acid is mildly elevated but labs are otherwise unremarkable. UA is still pending. CT will be obtained for further evaluation of her abdominal pain. IV access has been difficult. A central line may be pl aced if hypotension persists after the second liter of IV fluid. Patient had refractory nausea after Zofran. She also experienced some vertiginous dizziness when sitting up. Phenergan 6.25 mg IV was ordered. Patient still complains of abdominal pain after fentanyl 25 g IV. Further opioid analgesia is being held until blood pressure is resuscitated. Progress Note #2: Time: 12:[address] scan revealed free air in the abdomen. There is concern for GI perforation. The exact location is uncertain but may be the GE junction. This was discussed with the radiologist. Patient is still hypotensive while receiving her third liter of IV fluids. As soon as a central line is in place, norepinephrine drip will be initiated. Dr. Taylor's here in the ER placing a central line at present. We have reviewed the CT scan together and discussed the CT imaging with Dr. Bauer, radiologist. Zosyn, vancomycin, and Diflucan have been ordered for treatment of sepsis. Dr. Mcgee has been consulted and is also present in the room with the patient. Dr. Arevalo has been consulted as well. Plan is to stabilize blood pressure and take the patient to the operating room. I did discuss the situation with the patient and she understands the critical nature of her condition and the possibility of mortality. She wishes to remain a full CODE STATUS. Progress Note #3: Time: 13:19 Progress Note Patient is now on Levophed. Nursing staff reported she had a couple episodes of brief tremoring and decreased alertness. These episodes lasted only a few seconds. said she had a couple of these episodes at home as well. I notified Dr. Taylor and asked him to communicate this to anesthesia. I also notified Dr. Mcgee. ECG Initial ECG Impression Date: Jun 24, 2019 Initial ECG Impression Time: 09:49 Initial ECG Rate: 76 Initial ECG Rhythm: Normal Sinus Initial ECG Intervals: Normal Initial ECG Impression: Normal Comment Normal sinus rhythm with no ST elevation or depression. No abnormal intervals or axis deviation. Diagnostic Imaging Diagonstic Imaging: CT Plain Films/CT/US/NM/MRI: abdomen, pelvis Comments CT scan reviewed by me and discussed with Dr. Bauer, radiologist. Please note the report below does not reflect that discussion were the presence of free air. NAME: ALLISON BRANNON [facility] REC#: [id number] PT STATUS: REG ER : 1970 PHYSICIAN: SONAL LALA MD ADMIT DATE: 06/24/19/ER Draft Date of Exam:06/24/19 CT ABDOMEN/PELVIS W PROCEDURE: CT abdomen and pelvis with contrast. TECHNIQUE: Multiple contiguous axial images were obtained through the abdomen and pelvis after administration of intravenous contrast. Auto Exposure Controls were utilized during the CT exam to meet ALARA standards for radiation dose reduction. INDICATION: Lower abdominal pain with nausea and vomiting for 3 days. COMPARISON: 01/15/2018. DISCUSSION: The lung bases are unremarkable. Normal heart size. No pleural or pericardial fluid. Small hiatal hernia is present. Postoperative changes are again noted within the gastroesophageal junction. The gallbladder is surgically absent. The liver, pancreas, spleen, and adrenal glands are unremarkable. No hydronephrosis, mass, or stone. The aorta is normal in caliber and contains mild atherosclerotic plaque. Urinary bladder is unremarkable. The uterus is surgically absent. There are thick-walled enhancing small bowel loops noted diffusely throughout the abdomen. There is a small amount of gas and stool noted within the colon. Findings are nonspecific though could be seen with enteritis. There is mild ascites present diffusely, new. No pathologically enlarged lymph nodes are identified. Mild anasarca is noted, new. No acute osseous abnormality identified. IMPRESSION: 1. Thick-walled nonobstructed small bowel loops, possibly enteritis. 2. New mild ascites. 3. Mild anasarca. Dictated on workstation # [id number] Dict: 06/24/19 1130 Trans: 06/24/19 1137 [facility] [id number] Interpreted by: FRANCESCA MELTON MD Departure Communication (Admissions) Time/Spoke to Admitting Phy: 11:33 Dr. Brandon Arevalo 12:25 Dr. Mcgee 12:30 Impression Primary Impression: Septic shock Additional Impressions: Gastrointestinal perforation Nausea and vomiting Qualified Codes: R11.2 - Nausea with vomiting, unspecified Disposition: ADMITTED INPATIENT Condition: Critical Admissions Decision to Admit Reason: Admit from ER (General) Decision to Admit/Date: Jun 24, 2019 Time/Decision to Admit Time: 10:30 Departure-Patient Inst. Referrals: [facility]/ (PCP) Primary Care Physician MAN VITALE APRN (Family) Primary Care Physician SONAL LALA MD Jun 24, 2019 11:01
--- NOTE | 2019-06-24 11:10 | NUR ---
TO CT WITH CODY CORRALES RN.
--- NOTE | 2019-06-24 11:31 | NUR ---
PT BACK FROM CT. BP 83/44 ET PULSE 83.
--- NOTE | 2019-06-24 11:39 | Diagnostic Imaging Report ---
PROCEDURE: CT abdomen and pelvis with contrast. TECHNIQUE: Multiple contiguous axial images were obtained through the abdomen and pelvis after administration of intravenous contrast. Auto Exposure Controls were utilized during the CT exam to meet ALARA standards for radiation dose reduction. INDICATION: Lower abdominal pain with nausea and vomiting for 3 days. COMPARISON: 01/15/2018. DISCUSSION: The lung bases are unremarkable. Normal heart size. No pleural or pericardial fluid. Small hiatal hernia is present. Postoperative changes are again noted within the gastroesophageal junction. The gallbladder is surgically absent. The liver, pancreas, spleen, and adrenal glands are unremarkable. No hydronephrosis, mass, or stone. The aorta is normal in caliber and contains mild atherosclerotic plaque. Urinary bladder is unremarkable. The uterus is surgically absent. There are thick-walled enhancing small bowel loops noted diffusely throughout the abdomen. There is a small amount of gas and stool noted within the colon. Findings are nonspecific though could be seen with enteritis. There is an additional mild small bowel intussusception noted within the anastomotic suture line within the left abdomen. It is indeterminate as to whether this is transient or pathologic. There is no high-grade obstruction upstream suggesting this is likely transient. Mild pneumoperitoneum is of uncertain etiology. There is mild ascites present diffusely, new. No pathologically enlarged lymph nodes are identified. Mild anasarca is noted, new. No acute osseous abnormality identified. IMPRESSION: 1. Thick-walled nonobstructed small bowel loops, possibly enteritis. Small bowel intussusception within the left abdomen involving an anastomotic line. 2. New mild ascites. 3. Mild anasarca. 4. Pneumoperitoneum of uncertain etiology. Dictated by: Dictated on workstation # [id number]
[2019-06-24] MEDS ORDERED: LACTATED RINGERS 1,000 ML IV ONE (11:41)
--- NOTE | 2019-06-24 11:45 | NUR ---
IN ROOM AT THIS TIME
--- NOTE | 2019-06-24 11:58 | NUR ---
NOTIFIED OF PT'S HEADACHE. HE AND DR JAMES TALKING.
[2019-06-24] MEDS ORDERED: PIPERACILLIN/TAZOBACTAM (BULK) 4.5 GM in NS (IVPB) 100 ML IV ONE (12:00)
--- NOTE | 2019-06-24 12:05 | NUR ---
DR POWERS AND DR LALA IN TO SEE PT AT THIS TIME.
[2019-06-24] MEDS ORDERED: NOREPINEPHRINE 4 MG in NS (IVPB) 250 ML IV SCH (12:15)
--- NOTE | 2019-06-24 12:15 | NUR ---
DR POWERS IN ROOM FOR CENTRAL LINE. WILL DRAW LACTIC ACID FROM LINE ONCE STARTED.
--- NOTE | 2019-06-24 12:30 | NUR ---
DR TURNER IN ROOM AT THIS TIME.
--- NOTE | 2019-06-24 12:36 | NUR ---
DR PRIYA COLLINSSHED WITH THE CENTRAL LINE.
--- NOTE | 2019-06-24 12:38 | NUR ---
JACY FROM CT CALLED FROM ROOM TO HELP. UPON MY ARRIVAL PT WAS LOOKING TO THE RIGHT, STIFF, AND SLIGHTLY SHAKING. LASTED APPX 5-7 SEC. PT IMMEDIATELY ABLE TO ANSWER QUESTIONS ET A/0 X3.
--- NOTE | 2019-06-24 12:43 | NUR ---
PHARMACY NOTIFIED OF NEEDING MEDICATIONS.
[2019-06-24] MEDS ORDERED: VANCOMYCIN INJECTION 750 MG in NS (IVPB) 250 ML IV SCH (12:45)
[2019-06-24] MEDS ORDERED: FLUCONAZOLE 200 MG/100 ML 100 ML IV ONE (12:45)
[2019-06-24] MEDS ORDERED: VANCOMYCIN 1500 MG/NS 500 ML IVPB IV NR ×2 (12:51)
--- NOTE | 2019-06-24 13:02 | Diagnostic Imaging Report ---
INDICATION: Chest pain and pressure. COMPARISON: 07/31/2018. DISCUSSION: Single upright frontal view of the chest was obtained. The right lung base is clipped. Normal heart size. No focal consolidation, pleural fluid, or pneumothorax. Free air is noted around the right hemidiaphragm, as seen on CT from earlier today. No osseous abnormality. IMPRESSION: 1. Pneumoperitoneum. Dictated by: Dictated on workstation # [id number]
--- NOTE | 2019-06-24 13:10 | NUR ---
WHEN PT SAT UP TO SIGN CONCENT SHE AGAIN HAD A 5 SEC PERIOD OF BECOMING STIFF WITH A SLIGHT SHAKE. PT ABLE TO ANSWER ALL QUESTIONS IMMEDIATELY AFTER EPISODE. DR LALA NOTIFIED.
[2019-06-24] MEDS ORDERED: morphine INJ 10 MG/ML 1ML (SYR OR VIAL) IVP STA (13:28)
--- NOTE | 2019-06-24 13:34 | History & Physical-Surgical ---
History of Present Illness History of Present Illness Reason for visit/HPI CC: Diffuse abdominal pain patient is a 49 year old female with diffuse abdominal pain. Has been having nausea and vomiting that started 2 days ago. Worsening symptoms. Pain severe all over abdomen. Worse with any movement. Nothing making it better. Had so m uch pain today called EMS to bring to hospital. She has been hypotensive in the emergency department and we have fluid resuscitated and central line has been placed. Patient has history of gastric bypass in 2006 and has lost over [address] scan performed that we reviewed that demonstrates free air in abdomen, large amount of fluid in the abdomen and thickening of the bowel. Date of Admission T Date Seen by a Provider: Jun 24, 2019 Time Seen by a Provider: 12:00 I consulted on this patient on 06/24/19 13:28 Attending Physician Admitting Physician [facility] Consult Allergies and Home Medications Allergies Coded Allergies: NSAIDS (Non-Steroidal Anti-Inflamma (Verified Adverse Reaction, Unknown, 12/15/18) UNABLE TO TAKE DUE TO GASTRIC SURG Home Medications Cyclobenzaprine HCl 10 Mg Tablet, 10 MG PO BID, (Reported) Duloxetine HCl 60 Mg Capsule.dr, 60 MG PO DAILY, (Reported) Hydrocodone/Acetaminophen 1 Each Tablet, 1 TAB PO Q4H PRN for PAIN-MODERATE, (Reported) L.acidoph & Paracasei,B.lactis 1 Each Capsule, 1 EACH PO DAILY, (Reported) Metformin HCl 1,000 Mg Tablet, 1,000 MG PO BID, (Reported) Pregabalin 100 Mg Capsule, 100 MG PO BID, (Reported) Ropinirole HCl 0.5 Mg Tablet, 0.5-1 MG PO HS, (Reported) Sitagliptin Phosphate 100 Mg Tablet, 100 MG PO DAILY, (Reported) Topiramate 25 Mg Tablet, 50 MG PO HS, (Reported) [Lumiday] , 2 CAP PO DAILY, (Reported) Patient Home Medication List Home Medication List Reviewed: Yes Past Drtsxps-Lkylxm-Gfatcl Hx Patient Social History Alcohol Use: Rarely Uses Recreational Drug Use: No Smoking Status: Never a Smoker 2nd Hand Smoke Exposure: No Recent Foreign Travel: No Contact w/Someone Who Travel: No Recent Infectious Disease Expo: No Recent Hopitalizations: No Immunizations Up To Date PED Vaccines UTD: Yes Date of Influenza Vaccine: Jun 27, 2018 Seasonal Allergies Seasonal Allergies: No Surgeries History of Surgeries: Yes (D&C x5 [id number], EGD and colonoscopy, ABDOMINOPLASTY) Surgeries: Abdominal, Appendectomy, Gallbladder, Hysterectomy, Oophorectomy Respiratory History of Respiratory Disorde: No Cardiovascular History of Cardiac Disorders: Yes Cardiac Disorders: Hypertension Neurological History of Neurological Disord: Yes Neurological Disorders: Headaches /Migraines Reproductive System : No Hx Reproductive Disorders: No Sexually Transmitted Disease: No HIV/AIDS: No 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 Genitourinary History of Genitourinary Disor: Yes Genitourinary Disorders: UTI-Chronic Gastrointestinal History of Gastrointestinal Di: Yes (N/V, history of gastritis) Gastrointestinal Disorders: Hemorrhoids Musculoskeletal History of Musculoskeletal Dis: Yes Musculoskeletal Disorders: Fibromyalgia Endocrine History of Endocrine Disorders: Yes Endocrine Disorders: Diabetes, Non-Insulin dep HEENT History of HEENT Disorders: Yes (GLASSES) Loss of Vision: Bilateral Hearing Impairment: Denies Cancer History of Cancer: No Psychosocial History of Psychiatric Problem: Yes Behavioral Health Disorders: Anxiety, Depression Integumentary History of Skin or Integumenta: No Blood Transfusions History of Blood Disorders: No Adverse Reaction to a Blood Tr: No Family Medical History Significant Family History: No Pertinent Family Hx Review of Systems Constitutional: see HPI EENTM: no symptoms reported Respiratory: no symptoms reported Cardiovascular: no symptoms reported Gastrointestinal: see HPI Genitourinary: no symptoms reported Musculoskeletal: no symptoms reported Skin: no symptoms reported Psychiatric/Neurological: No Symptoms Reported Physical Exam Vital Signs Vital Signs - First Documented 06/24/19 09:37 Temp 36.8 Pulse 83 Resp 16 B/P (MAP) 88/52 (64) Pulse Ox 97 O2 Delivery Room Air Capillary Refill : Less Than 3 Seconds Height, Weight, BMI Height: 5'5.00" Weight: 200lbs. 0.0oz. [id number]; 29.00 BMI Method:Stated General Appearance: Moderate Distress HEENT: PERRL/EOMI Neck: Full Range of Motion, Normal Inspection, Non Tender, Supple Respiratory: Chest Non Tender, No Accessory Muscle Use, No Respiratory Distress Cardiovascular: Regular Rate, Rhythm Gastrointestinal: Tenderness (diffusely pertioneal on exam all quadrants) Rectal: Deferred Back: No CVA Tenderness Extremity: Non Tender, No Calf Tenderness Neurologic/Psychiatric: Alert, Oriented x3, No Motor/Sensory Deficits, Normal Mood/Affect, slot floor attendant II-XII Norm as Tested Skin: Normal Color, Warm/Dry Lymphatic: No Adenopathy Data Review Labs Laboratory Tests 06/24/19 09:41: Glucometer 163H 06/24/19 09:46: White Blood Count 8.2, Red Blood Count 4.87, Hemoglobin 13.6, Hematocrit 40, Mean Corpuscular Volume 82, Mean Corpuscular Hemoglobin 28, Mean Corpuscular Hemoglobin Concent 34, Red Cell Distribution Width 16.1H, Platelet Count 550H, Mean Platelet Volume 9.2, Neutrophils (%) (Auto) 76H, Lymphocytes (%) (Auto) 20, Monocytes (%) (Auto) 4, Eosinophils (%) (Auto) 1, Basophils (%) (Auto) 0, Neutrophils # (Auto) 6.2, Lymphocytes # (Auto) 1.6, Monocytes # (Auto) 0.3, Eosinophils # (Auto) 0.0, Basophils # (Auto) 0.0, Prothrombin Time 12.8, INR Comment 0.9, Activated Partial Thromboplast Time 27, Sodium Level 139, Potassium Level 3.4L, Chloride Level 104, Carbon Dioxide Level 24, Anion Gap 11, Blood Urea Nitrogen 9, Creatinine 0.94, Estimat Glomerular Filtration Rate > 60, BUN/Creatinine Ratio 10, Glucose Level 173H, Lactic Acid Level 2.41*H, Calcium Level 7.6L, Corrected Calcium 8.7, Total Bilirubin 0.3, Aspartate Amino Transf (AST/SGOT) 23, Alanine Aminotransferase (ALT/SGPT) 21, Alkaline Phosphatase 115, Troponin I < 0.028, C-Reactive Protein High Sensitivity 2.74H, Total Protein 5.5L, Albumin 2.6L, Lipase 12 06/24/19 12:50: Glucometer 161H, Lactic Acid Level 3.04*H Microbiology 06/24/19 Influenza Types A,B Antigen ([facility]) - Final, Complete Assessment/Plan Assessment/Plan Admission Diagonsis pneumoperitoneum abdominal pain diffuse hollow viscus perforation history of gastric bypass hypotension nausea vomiting patient is 49 year old history of gastric bypass, free air and fluid demonstrated by ct scan which Dr. Tran and I discussed with radiologist personal care assistant who agrees with us. Patient with peritoneal abdominal exam and hypotensive. I place a central line u/s guided right IJ. For medical optimization, and discussed risks and benefits of surgical intervention with patient and her family. She is high risks and understands risks of morbidity/mortality. Patient and family understands all risks and wish to proceed with diagnostic laparoscopy possible open all other indicated procedures. Admission Status: Inpatient Order (span 2 midnights) Reason for Inpatient Admission: Patient needing surgical and medical care that will require antibiotics, pain control and postoperative services that will require stay greater than 2 midnights. Assessment/Plan pneumoperitoneum abdominal pain diffuse hollow viscus perforation history of gastric bypass hypotension nausea vomiting patient is 49 year old history of gastric bypass, free air and fluid demonstrated by ct scan which Dr. Tran and I discussed with radiologist personal care assistant who agrees with us. Patient with peritoneal abdominal exam and hypotensive. I place a central line u/s guided right IJ. For medical optimization, and discussed risks and benefits of surgical intervention with patient and her family. She is high risks and understands risks of morbidity/mortality. Patient and family understands all risks and wish to proceed with diagnostic laparoscopy possible open all other indicated procedures. Consults to Dr. Marie which Dr. Tran has discussed case with. ROBYN POWERS DO Jun 24, 2019 13:34
[2019-06-24] MEDS ORDERED: BUP/EPI 0.25% 1:200,000 (MARCAINE) 10 ML VIAL IJ ONE (13:40)
--- NOTE | 2019-06-24 13:46 | NUR ---
PHARMACY CONTACTED FOR MEDICATIONS.
[2019-06-24] MEDS ORDERED: HYDROmorphone 2 MG/ML VIAL (DILAUDID) IV ONE ×3 (14:00→22:00)
--- NOTE | 2019-06-24 14:00 | NUR ---
PT CONTINUES TO COMPLAIN OF PAIN. DR LALA NOTIFIED.
--- NOTE | 2019-06-24 14:28 | NUR ---
ALF BROOKS HERE TO TAKE PT TO THE OR.
--- NOTE | 2019-06-24 14:28 | NUR ---
Franki stoll in [facility] - 06/24/19 at 1428 by ROBERTA ALF FROM SURGERY TO TO TAKE PT.
--- NOTE | 2019-06-24 14:28 | NUR ---
ALF FROM SURGERY TO TO TAKE PT.
[2019-06-24] MEDS ORDERED: fentaNYL INJECTION 100 MCG/2 ML AMP ONE (14:31)
[2019-06-24] MEDS ORDERED: MIDAZOLAM 2 MG/2 ML (VERSED) VIAL ONE (14:31)
[2019-06-24] MEDS ORDERED: SEVOFLURANE (ULTANE) 15 ML INHAL SOLN ONE ×9 (14:31→17:16)
[2019-06-24] MEDS ORDERED: GLYCOPYRROLATE 0.2 MG/ML (ROBINUL) 2 ML VIAL ONE (14:31)
[2019-06-24] MEDS ORDERED: WATER (STERILE) FOR INJECTION 20 ML ONE (14:31)
[2019-06-24] MEDS ORDERED: NEOSTIGMINE 3 MG/3 ML VIAL ONE (14:31)
[2019-06-24] MEDS ORDERED: proPOfol 200 MG/20 ML (DIPRIVAN) VIAL IV ONE (14:31)
[2019-06-24] MEDS ORDERED: DEXAMETHASONE 10 MG/ML (DECADRON) 1 ML VIAL ONE (14:31)
[2019-06-24] MEDS ORDERED: ONDANSETRON 4 MG/2 ML (SDV) Z0FRAN ONE (14:31)
[2019-06-24] MEDS ORDERED: ROCURONIUM 10 MG/ML 5 ML SYRINGE IV ONE (14:31)
[2019-06-24] MEDS ORDERED: LIDOCAINE PF 2% 5 ML (XYLOCAINE) VIAL ONE ×2 (14:31→16:41)
[2019-06-24] MEDS: LACTATED RINGERS 1,000 ML IV PRN ×2 (14:42→16:15)
[2019-06-24] MEDS ORDERED: LACTATED RINGERS 1,000 ML IV PRN (16:20)
[2019-06-24] MEDS ORDERED: ONDANSETRON 4 MG/2 ML (SDV) Z0FRAN IVP PRN (16:30)
[2019-06-24] MEDS ORDERED: morphine INJ 10 MG/ML 1ML (SYR OR VIAL) IVP ONE (16:30)
[2019-06-24] MEDS ORDERED: MEPERIDINE (DEMEROL) INJ 50 MG/ML IVP ONE (16:30)
[2019-06-24] MEDS ORDERED: ETOMIDATE IV SOLN 20 MG/10 ML VIAL ONE (16:41)
[2019-06-24] MEDS ORDERED: NS (IVPB) 250 ML ONE (17:11)
[2019-06-24] MEDS ORDERED: NOREPINEPHRINE 4 MG/4 ML (LEVOPHED) AMP IV ONE (17:12)
[2019-06-24] MEDS ORDERED: PHENYLEPHRINE 100 MCG/ML 10 ML (ANESTHESIA) SYR ONE (17:31)
[2019-06-24] MEDS ORDERED: SUCCINYLCHOLINE INJ 100 MG/5 ML SYR ONE (17:31)
--- NOTE | 2019-06-24 19:04 | Progress Note-Post Operative ---
Post-Operative Progess Note Surgeon (s)/Assembler Fitter (s) Surgeon ROBYN POWERS DO Assembler Fitter: na Pre-Operative Diagnosis hollow viscus perforation Post-Operative Diagnosis gastric pouch perforation Procedure & Operative Findings Date of Procedure 06/24/19 Procedure Performed/Findings diagnostic laparoscopy converted to open sudhir patch Anesthesia Type gen Estimated Blood Loss Estimated blood loss (mL): min Specimens/Packing Specimens Removed abdominal fluid ROBYN POWERS DO Jun 24, 2019 19:04
[2019-06-24] MEDS: HYDROmorphone 2 MG/ML VIAL (DILAUDID) IV PRN (20:03)
--- NOTE | 2019-06-24 20:10 | Consultation - Hospitalist ---
HPI History of Present Illness: HPI/Chief Complaint Chief complaint: Perforated intestine History of present illness: This is a 49-year-old white female clinic patient of [facility] with a past medical history of gastric bypass and multiple abdominal surgeries who presented to the hospital via paramedics due to severe abdominal pain nausea and vomiting. CT scan obtained showing free air suggesting perforation. Dr. Taylor was consulted to place central line urgently due to septic shock status requiring aggressive IV fluid resuscitation and pressor therapy. She is placed on broad-spectrum antibiotics with Diflucan Zosyn and vancomycin. Patient was urgently taken to surgery and she was well aware of this plan and agreed with the management. Source: patient, RN/MD, old records Exam Limitations: clinical condition Date Seen 06/24/19 Attending Physician Randy Taylor DO [facility] [place] Referring Physician Date of Admission Home Medications & Allergies Home Medications Reviewed patient Home Medication Reconciliation performed by pharmacy medication reconciliations bmw service technician and/or nursing. Patients Allergies have been reviewed. Allergies Allergies Coded Allergies NSAIDS (Non-Steroidal Anti-Inflamma (Verified Adverse Reaction, Unknown, 12/15/18) UNABLE TO TAKE DUE TO GASTRIC SURG Past Pzxbigr-Golurd-Cyjcwo Hx Past Med/Social Hx: Reviewed Nursing Past Med/Soc Hx, Reviewed and Corrections made Patient Social History Marrital Status: Employed/Student: unemployed Alcohol Use: Rarely Uses Recreational Drug Use: No Smoking Status: Never a Smoker 2nd Hand Smoke Exposure: No Recent Foreign Travel: No Contact w/other who traveled: No Recent Hopitalizations: No Recent Infectious Disease Expo: No Immunizations Up To Date Pediatric: Yes Date of Influenza Vaccine: Jun 27, 2018 Seasonal Allergies Seasonal Allergies: No Past Medical History Surgeries: Abdominal, Appendectomy, Gallbladder, Hysterectomy, Oophorectomy Cardiac: Hypertension Neurological: Headaches /Migraines : No Reproductive: No Sexually Transmitted Disease: No HIV/AIDS: No Hysterectomy Genitourinary: UTI-Chronic Gastrointestinal: Hemorrhoids Musculoskeletal: Fibromyalgia Endocrine: Diabetes, Non-Insulin dep Loss of Vision: Bilateral Hearing Impairment: Denies Psychosocial: Anxiety, Depression History of Blood Disorders: No Adverse Reaction to Blood Ayon: No Family History No Pertinent Family Hx Review of Systems Constitutional: see HPI Gastrointestinal: abdominal pain, loss of appetite, nausea, vomiting Physical Exam Physical Exam Vital Signs Vital Signs - First Documented 06/24/19 06/24/19 09:37 20:12 Temp 36.8 Pulse 83 Resp 16 B/P (MAP) 88/52 (64) Pulse Ox 97 O2 Delivery Room Air FiO2 21 Capillary Refill : Less Than 3 SecondsLess Than 3 Seconds Height, Weight, BMI Height: 5'5.00" Weight: 200lbs. 0.0oz. 90.819490wy; 29.00 BMI Method:Stated General Appearance: WD/WN, Anxious, Chronically ill, Moderate Distress HEENT: PERRL/EOMI, Normal ENT Inspection, Pharynx Normal Neck: Normal Inspection Respiratory: Lungs Clear, Normal Breath Sounds, No Accessory Muscle Use Cardiovascular: Regular Rate, Rhythm, No Edema, No Murmur Gastrointestinal: Soft, Abnormal Bowel Sounds (decreased bowel sounds), Guarding, Tenderness (significant tenderness throughout the abdomen. 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 Assessment/Plan Assessment and Plan Assess & Plan/Chief Complaint Assessment: Septic shock Acute abdominal pain with perforation on CT scan with free air h/o multiple abdominal surgeries Plan: Urgent surgery Diagnosis/Problems Diagnosis/Problems (1) Septic shock Status: Acute (2) Gastrointestinal perforation Status: Acute (3) Nausea and vomiting Status: Acute Qualifiers: Vomiting type: unspecified Vomiting Intractability: non-intractable Qualified Codes: R11.2 - Nausea with vomiting, unspecified (4) History of Bret-en-Y gastric bypass Status: Acute DIONICIO TURNER DO Jun 24, 2019 20:10
--- NOTE | 2019-06-24 20:19 | NUR ---
This RN notified EICU of patient c/o pain and decreased urine output <30ml/hr. New orders received at this time.
[2019-06-24] MEDS ORDERED: HYDROmorphone 2 MG/ML VIAL (DILAUDID) ONE (20:31)
[2019-06-24] MEDS ORDERED: NS IV 500 ML 500 ML ONE (20:31)
--- NOTE | 2019-06-24 20:41 | Diagnostic Imaging Report ---
INDICATION: Tube placement. EXAMINATION: Frontal chest was obtained at 7:45 p.m. COMPARISON: 12:41 p.m. the same day. FINDINGS: Right IJ central catheter, unchanged, with tip overlying the SVC. NG tube is seen with tip near the GE junction. Surgical drains are seen over the abdomen with free air seen which is probably due to recent surgery. There is no focal infiltrate or pneumothorax. IMPRESSION: NG tube is seen with tip near the GE junction. Right IJ central catheter tip overlies the SVC. There is no focal infiltrate. There is free air compatible with recent surgery. Dictated by: Dictated on workstation # [id number]
[2019-06-24] MEDS ORDERED: NS IV 500 ML 500 ML IV SCH (21:00)
[2019-06-24] MEDS ORDERED: RT-ALBUTEROL SULF 2.5 MG/3 ML PRE-MIX VIAL INH PRN (21:30)
--- NOTE | 2019-06-24 21:37 | NUR ---
This RN updated Dr. Gregory on patient status and of decreased urine output. New orders received at this time.
[2019-06-24] MEDS ORDERED: NS IV 500 ML 500 ML IV ONE (21:45)
[2019-06-24] MEDS ORDERED: NS (IVPB) 100 ML ONE (22:14)
[2019-06-24] MEDS ORDERED: PIPERACILLIN/TAZO 4.5 GM VIAL (ZOSYN) IV ONE (22:14)
[2019-06-24] MEDS: PIPERACILLIN/TAZOBACTAM (BULK) 4.5 GM in NS (IVPB) 100 ML IV SCH (22:25)
[2019-06-24] MEDS: PANTOPRAZOLE INJECTION 200 MG in NS (IVPB) 100 ML IV SCH (22:37)
[2019-06-24] MEDS: morphine INJ 4 MG/ML 1 ML (VIAL/SYRINGE) IVP PRN (22:38)
--- NOTE | 2019-06-24 23:24 | NUR ---
2324-This RN notified Dr. Gregory of order from Dr. Turcios ([facility]) to advance Gastric Tube an additional 10-15cm (see order history). New telephone order received from Dr. Gregory to not advance the tube and to leave in current placement. 2330-This RN notified [facility] of updated order.
[2019-06-25] VITALS (25 sets, daily range): BP systolic 92–163; BP diastolic 37–97
--- NOTE | 2019-06-25 00:17 | NUR ---
This RN notified EICU of continued decreased urine output and HR in 120's.
--- NOTE | 2019-06-25 00:27 | OPERATIVE REPORT ---
DATE OF SERVICE: 06/24/2019 PREOPERATIVE DIAGNOSIS: Hypotension. POSTOPERATIVE DIAGNOSIS: Hypotension. PROCEDURE: Ultrasound-guided right internal jugular vein central line placement. SURGEON: Robyn Taylor DO ANESTHESIA: 1% lidocaine. ESTIMATED BLOOD LOSS: Minimal. COMPLICATIONS: None. INDICATIONS: The patient is a 49-year-old female with abdominal pain and hypotension, needing central line placement with no improvement after fluid resuscitation and needing to be on pressors. The patient is in the Emergency Department at this time. I was asked to place a central line emergently. The patient was discussed risks and benefits of procedure who wished to proceed. Consent was signed in the chart. DESCRIPTION OF PROCEDURE: The patient was prepped and draped in sterile fashion. Timeout was performed. The internal jugular vein was visualized under the ultrasound. Local anesthetic was infiltrated and using ultrasound, the right internal jugular vein was accessed. Nonpulsatile blood was withdrawn. Guidewire was inserted and the needle was removed. An 11 blade scalpel was used to make a stab incision at the insertion site and a dilator was then advanced over the wire and removed. The triple lumen catheter was advanced over the wire and the wire was removed. All ports were accessed and flushed without difficulty. The catheter was then secured and sterile bandage was applied. The patient tolerated procedure well without any complications. Chest x-ray pending. Job ID: [id number] DocumentID: [id number] Dictated Date: 06/24/2019 20:54:55 Tableau Architect Date: 06/25/2019 00:26:40 Dictated By: ROBYN TAYLOR DO
[2019-06-25] MEDS: morphine INJ 4 MG/ML 1 ML (VIAL/SYRINGE) IVP PRN ×8 (00:31→17:34)
--- NOTE | 2019-06-25 00:42 | OPERATIVE REPORT ---
DATE OF SERVICE: 06/24/2019 PREOPERATIVE DIAGNOSIS: Hollow viscus perforation. POSTOPERATIVE DIAGNOSIS: Gastric pouch perforation. PROCEDURE: Diagnostic laparoscopy converted to open Tyler patch. SURGEON: Robyn Taylor DO ANESTHESIA: General. ESTIMATED BLOOD LOSS: Minimal. COMPLICATIONS: None. SPECIMENS: Abdominal fluid. INDICATIONS: The patient is a 49-year-old female with a history of gastric bypass. The patient has been having abdominal pain, nausea and vomiting. The patient had a CT scan demonstrating free air in the abdomen suggestive of hollow viscus perforation. The patient had peritoneal abdominal exam. She was explained risks and benefits of procedure and wished to proceed with procedure. Consent was signed on the chart. DESCRIPTION OF PROCEDURE: The patient was taken to the operating suite. She was prepped and draped in sterile fashion. Surgical pause was performed. Local anesthetic was infiltrated just above the umbilicus. A #11 blade scalpel was used to make a skin incision and cautery used to dissect down to the fascia, which was scored, grasped and elevated and the abdomen was entered. Balloon trocar was inserted and pneumoperitoneum was achieved. Lots of fluids throughout the abdomen, which was murky and purulent appearing fluid. A 5 mm trocar was placed in the right upper quadrant. Suction was used to obtain fluid culture. The foot was then began to be drained. In doing so, the bowel had normal appearance. No evidence of any ischemic bowel. The left portion of the liver had a lot of fibrinous reactive tissue around this area and also there was omentum that was adherent to the anterior abdominal wall. The perforation was visualized, which appears to be from the gastric pouch from her previous gastric bypass. The abdomen was then irrigated with copious amounts of irrigation and suctioned. A 12 mm trocar was then placed in the left upper quadrant and a second 5 mm trocar was placed in the left upper quadrant, more towards the midline. LigaSure was used to take down the omentum that was adherent to the abdominal wall. Using a 3-0 Vicryl, this was used to begin closing the perforated; however, the tissue was very friable and the suture pulled through. Another attempt was done with this; however, the suture pulled through this tissue as well. At this time, it was decided to abort laparoscopic procedure and converted to open. In the midline, 12 mm trocar was then removed and the abdomen was opened from this incision superiorly at the midline. The two 3-0 Vicryls were then used to close the defect of the perforation. This had a slightly hard to feel due to reactive changes. Once these were tied, a piece of omentum that was previously taken down earlier was then placed up through this for a Tyler patch and then secured. The abdomen was then irrigated with copious amounts of irrigation. The Bret-en-Y limbs were ran noting no abnormality. Distal to the Bret-en-Y limb, I was ran all the way to the cecum with no abnormality. The abdomen again was irrigated with copious amounts of irrigation. Through the 5 mm trocars on the left upper quadrant, two 19 Wyatt drains were placed, were grasped through these incision sites and one drain was placed at the Tyler patch and one was placed down in the pelvis. These were secured using 3-0 silk sutures. The incision was then closed using 1-0 looped PDS. The wound was then irrigated with copious amounts of irrigation and skin was then closed using erica at the midline and other incisions. The abdomen was then washed and dried and sterile bandage was applied. The patient will go to the Intensive Care Unit postoperatively. She will be kept n.p.o. and continue on antibiotics. Guarded condition. Job ID: [id number] DocumentID: [id number] Dictated Date: 06/24/2019 21:01:52 Structural Steel Worker Helper Date: 06/25/2019 00:41:41 Dictated By: ROBYN TAYLOR DO MTDJonathna
[2019-06-25] MEDS: NS IV 1000 ML 1,000 ML IV SCH ×2 (01:38→04:41)
[2019-06-25] MEDS ORDERED: NS IV 1000 ML 1,000 ML IV SCH (01:45)
--- NOTE | 2019-06-25 03:22 | NUR ---
This RN notified EICU of pt pain complaint of 06/29 and continued decreased urine output despite 1L NS bolus that was just completed. New orders received at this time, see order history.
[2019-06-25 03:25] LABS: BASOPHILS % (AUTO) 0 % (0-10); EOSINOPHILS % (AUTO) 0 % (0-10); HEMATOCRIT 31 % (35-52); LYMPHOCYTES % (AUTO) 8 % (12-44); MEAN CORPUSCULAR HEMOGLOBIN 27 PG (25-34); MEAN CORPUSCULAR HGB CONC 33 G/DL (32-36); MEAN CORPUSCULAR VOLUME 84 FL (80-99); MEAN PLATELET VOLUME 8.9 FL (7.4-10.4); MONOCYTES # (AUTO) 0.6 X 10^3 (0.0-1.0); MONOCYTES % (AUTO) 4 % (0-12); NEUTROPHILS # (AUTO) 12.3 X 10^3 (1.8-7.8); NEUTROPHILS % (AUTO) 88 % (42-75); PLATELET COUNT 292 10^3/uL (130-400); RED CELL DISTRIBUTION WIDTH 16.5 % (10.0-14.5); WHITE BLOOD COUNT 13.9 10^3/uL (4.3-11.0)
[2019-06-25] MEDS ORDERED: HYDROmorphone 2 MG/ML VIAL (DILAUDID) IV ONE (03:30)
[2019-06-25] MEDS ORDERED: ALBUMIN 5% 12.5 GM/250 ML 500 ML IV ONE ×3 (03:41→05:00)
[2019-06-25 03:49] LABS: ALANINE AMINOTRANSFERASE 21 U/L (0-55); ALBUMIN 1.8 GM/DL (3.2-4.5); ALKALINE PHOSPHATASE 59 U/L (40-136); BILIRUBIN,TOTAL 0.3 MG/DL (0.1-1.0); BUN/CREATININE RATIO 16; CALCIUM 6.3 MG/DL (8.5-10.1); CARBON DIOXIDE 19 MMOL/L (21-32); CHLORIDE 111 MMOL/L (98-107); CREATININE SERUM 0.88 MG/DL (0.60-1.30); GFR ESTIMATED > 60; GLUCOSE 177 MG/DL (70-105); PHOSPHORUS 4.1 MG/DL (2.3-4.7); POTASSIUM 3.9 MMOL/L (3.6-5.0); SODIUM 139 MMOL/L (135-145)
[2019-06-25 03:54] LABS: MAGNESIUM 0.9 MG/DL (1.6-2.4)
[2019-06-25] MEDS: HYDROmorphone 2 MG/ML VIAL (DILAUDID) IV PRN (04:38)
[2019-06-25] MEDS: POTASSIUM CL 10MEQ/50ML IVPB 50 ML IV SCH ×4 (04:52→15:02)
[2019-06-25] MEDS: MAGNESIUM 1 GM/100 ML IVPB 100 ML IV SCH ×3 (04:52→14:52)
[2019-06-25] MEDS: KCL 20 MEQ TAB (K-DUR) PO SCH (04:53)
[2019-06-25] MEDS ORDERED: NS (IVPB) 100 ML ONE (04:58)
[2019-06-25] MEDS ORDERED: PIPERACILLIN/TAZO 4.5 GM VIAL (ZOSYN) IV ONE (04:58)
[2019-06-25] MEDS: PIPERACILLIN/TAZOBACTAM (BULK) 4.5 GM in NS (IVPB) 100 ML IV SCH ×3 (05:03→20:35)
[2019-06-25] MEDS: MAGNESIUM 1 GM/100 ML IVPB IV SCH ×4 (05:03→06:33)
--- NOTE | 2019-06-25 05:48 | Pulmonary Consultation ---
History of Present Illness History of Present Illness Date of Consultation 06/25/19 05:43 Time Seen by Provider: 05:43 Date of Admission History of Present Illness 49yo presented to ED secondary to diffuse abdominal pain, nausea, and vomiting that started 2 days prior. Pt was found to have hypotension, gastric perforation, and severe sepsis. Pt is s/p surgery. Pt is now off levophed. No prior episodes like this in the past. I am consulted for ICU management. EICU has been managing since admission to the ICU 1747 last night. Allergies and Home Medications Allergies Coded Allergies: NSAIDS (Non-Steroidal Anti-Inflamma (Verified Adverse Reaction, Unknown, 12/15/18) UNABLE TO TAKE DUE TO GASTRIC SURG Home Medications Cyclobenzaprine HCl 10 Mg Tablet, 10 MG PO BID, (Reported) Duloxetine HCl 60 Mg Capsule.dr, 60 MG PO DAILY, (Reported) Hydrocodone/Acetaminophen 1 Each Tablet, 1 TAB PO Q4H PRN for PAIN-MODERATE, (Reported) L.acidoph & Paracasei,B.lactis 1 Each Capsule, 1 EACH PO DAILY, (Reported) Metformin HCl 1,000 Mg Tablet, 1,000 MG PO BID, (Reported) Pregabalin 100 Mg Capsule, 100 MG PO BID, (Reported) Ropinirole HCl 0.5 Mg Tablet, 0.5-1 MG PO HS, (Reported) Sitagliptin Phosphate 100 Mg Tablet, 100 MG PO DAILY, (Reported) Topiramate 25 Mg Tablet, 50 MG PO HS, (Reported) [Lumiday] , 2 CAP PO DAILY, (Reported) Past Bhmbies-Fvyqlb-Wadezg Hx Past Med/Social Hx: Reviewed Nursing Past Med/Soc Hx, Reviewed and Corrections made Patient Social History Alcohol Use: Rarely Uses Recreational Drug Use: No Smoking Status: Never a Smoker 2nd Hand Smoke Exposure: No Recent Foreign Travel: No Contact w/Someone Who Travel: No Recent Infectious Disease Expo: No Recent Hopitalizations: No Immunizations Up To Date PED Vaccines UTD: Yes Date of Influenza Vaccine: Jun 27, 2018 Seasonal Allergies Seasonal Allergies: No Past Medical History Surgeries: Yes (D&C x5 [id number], EGD and colonoscopy, ABDOMINOPLASTY) Abdominal, Appendectomy, Gallbladder, Hysterectomy, Oophorectomy Respiratory: No Cardiac: Yes Hypertension Neurological: Yes Headaches /Migraines : No Reproductive Disorders: 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 0.0oz. 90.341311mm; 29.00 BMI Method:Stated Exam Exam Vital Signs Date Time Temp Pulse Resp B/P (MAP) Pulse Ox O2 Delivery O2 Flow Rate FiO2 06/25/19 05:00 105 12 110/44 (66) 93 Room Air 06/25/19 04:00 Room Air 06/25/19 04:00 109 13 114/42 (66) 96 Room Air 06/25/19 03:06 37.0 06/25/19 03:00 109 14 110/37 (61) 96 Room Air 06/25/19 02:00 106 15 121/42 (68) 96 Room Air 06/25/19 01:00 114 13 92/38 (56) 96 Room Air 06/25/19 01:00 114 06/25/19 00:00 117 16 105/41 (62) 96 Room Air 06/25/19 00:00 Room Air 06/25/19 00:00 36.9 06/24/19 23:35 Room Air 06/24/19 23:00 102 17 114/37 (62) 97 Room Air 06/24/19 22:00 105 16 103/39 (60) 96 Room Air 06/24/19 21:00 87 15 106/36 (59) 100 Room Air 06/24/19 20:12 36.2 89 99 21 06/24/19 20:00 Room Air 06/24/19 20:00 97 18 121/48 (72) 99 Room Air 06/24/19 19:00 89 12 128/47 (74) 99 Room Air 06/24/19 19:00 88 06/24/19 18:46 36.2 18 99 Room Air 06/24/19 18:46 Room Air 06/24/19 18:40 Room Air 06/24/19 18:40 18 103/58 (73) 98 Room Air 06/24/19 18:30 18 104/53 (70) 96 Room Air 06/24/19 18:30 Room Air 06/24/19 18:20 18 105/37 (59) 100 Room Air 06/24/19 18:18 06/24/19 18:15 OxyMask 3 06/24/19 18:10 18 90/50 (63) 100 OxyMask 6 06/24/19 18:00 OxyMask 6 06/24/19 18:00 18 98/76 (83) 100 OxyMask 6 06/24/19 17:58 89 06/24/19 17:50 18 131/68 (89) 100 OxyMask 6 06/24/19 17:47 OxyMask 6 06/24/19 17:47 36.1 15 99/40 (59) 97 OxyMask 6 06/24/19 14:34 82 16 109/66 97 Room Air 06/24/19 09:37 36.8 83 16 88/52 (64) 97 Room Air I & O 06/25/19 07:00 Intake Total 7835 ml Output Total 995 ml Balance 6840 ml Height & Weight Height: 5'5.00" Weight: 200lbs. 0.0oz. 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 Will give 1gm now then PTD Hypotension - improved -Pt is now off levophed decreased UO -- -Currently 22ml/hr -Give liter bolus of LR -Change IVF to LR and increase rate to 150 Hypomag, hypocalcemia -1 amp of Calcium gluconate -replace with 4grms of mgsulfate then repeat labs Anemia -Monitor NIDDM -SSI -Monitor REBEKA TOUSSAINT DO Jun 25, 2019 05:48
[2019-06-25] MEDS ORDERED: LACTATED RINGERS 1,000 ML IV SCH (06:00)
[2019-06-25] MEDS ORDERED: VANCOMYCIN INJECTION 1,000 MG in NS (IVPB) 250 ML IV SCH (06:00)
[2019-06-25] MEDS ORDERED: CALCIUM GLUC. 10% 4.65 MEQ/10 ML VIAL ONE (06:38)
[2019-06-25] MEDS ORDERED: VANCOMYCIN 1000 MG/VIAL ONE (06:40)
[2019-06-25] MEDS ORDERED: NS (IVPB) 250 ML ONE (06:40)
[2019-06-25] MEDS ORDERED: CALCIUM GLUCONATE 10% INJ 4.65 MEQ in NS (IVPB) 50 ML IV ONE (06:45)
[2019-06-25] MEDS ORDERED: NS (IVPB) 0 ML ONE (06:47)
[2019-06-25] MEDS: LACTATED RINGERS 1,000 ML IV SCH ×2 (06:56→14:12)
[2019-06-25] MEDS ORDERED: CALCIUM GLUCONATE 10% INJ 4.65 MEQ in NS (IVPB) 50 ML IV NR (07:17)
[2019-06-25] MEDS ORDERED: VANCOMYCIN 500 MG/NS 100 ML IV NR ×2 (07:20)
[2019-06-25] MEDS: RT-ALBUTEROL SULF 2.5 MG/3 ML PRE-MIX VIAL INH SCH ×4 (07:24→19:25)
--- NOTE | 2019-06-25 07:25 | NUR ---
PHARMACY TO DOSE VANCOMYCIN: PT WT 87KG, DOSE AT 1500MG BID, 1G ALREADY GIVEN WILL GIVE AN ADDITIONAL 500MG THIS AM. TROUGH ORDERED PRIOR TO 4TH DOSE ON 06/26 @1800.
[2019-06-25] MEDS: FLUCONAZOLE 200 MG/100 ML 100 ML IV SCH (08:32)
[2019-06-25 09:55] LABS: ALANINE AMINOTRANSFERASE 18 U/L (0-55); ALBUMIN 2.5 GM/DL (3.2-4.5); ALKALINE PHOSPHATASE 53 U/L (40-136); BILIRUBIN,TOTAL 0.4 MG/DL (0.1-1.0); BUN/CREATININE RATIO 15; CALCIUM 6.8 MG/DL (8.5-10.1); CARBON DIOXIDE 20 MMOL/L (21-32); CHLORIDE 112 MMOL/L (98-107); CREATININE SERUM 0.81 MG/DL (0.60-1.30); GFR ESTIMATED > 60; GLUCOSE 177 MG/DL (70-105); MAGNESIUM 1.7 MG/DL (1.6-2.4); PHOSPHORUS 3.4 MG/DL (2.3-4.7); POTASSIUM 3.8 MMOL/L (3.6-5.0); SODIUM 142 MMOL/L (135-145); TOTAL PROTEIN 4.5 GM/DL (6.4-8.2)
--- NOTE | 2019-06-25 10:57 | Progress Note - Surgery ---
SUKUMAR CORREIA,MED STUDENT 06/25/19 1057: Subjective Date Seen by a Provider: Jun 25, 2019 Time Seen by a Provider: 08:45 Subjective/Events-last exam Patient is a 49 yo female S/P gram patch done 06/24/19. She complains of diffuse abdominal pain at this time. She denies any nausea. Serous fluid noted in bilateral THIERRY drains. Review of Systems General: Fatigue Pulmonary: No Dyspnea Cardiovascular: No: Chest Pain, Lt Headedness Gastrointestinal: Abdominal Pain; No: Nausea, Vomiting Genitourinary: No Hematuria, No Retention Neurological: Weakness; No: Confusion Focused Exam Lactate Level 06/24/19 09:46: Lactic Acid Level 2.41*H 06/24/19 12:50: Lactic Acid Level 3.04*H 06/25/19 03:05: Lactic Acid Level 0.91 Time of Focused Exam: 13:25 Objective Exam Vital Signs Date Time Temp Pulse Resp B/P (MAP) Pulse Ox O2 Delivery O2 Flow Rate FiO2 06/25/19 10:40 96 Room Air 06/25/19 10:00 109 12 127/52 (77) 96 Room Air 06/25/19 09:00 108 12 103/60 (74) 95 Room Air 06/25/19 08:00 103 9 134/42 (72) 96 Room Air 06/25/19 07:24 96 Room Air 06/25/19 07:00 101 06/25/19 07:00 107 9 137/47 (77) 94 Room Air 06/25/19 06:00 105 13 105/43 (63) 94 Room Air 06/25/19 05:00 105 12 110/44 (66) 93 Room Air 06/25/19 04:00 Room Air 06/25/19 04:00 109 13 114/42 (66) 96 Room Air 06/25/19 03:06 37.0 06/25/19 03:00 109 14 110/37 (61) 96 Room Air 06/25/19 02:00 106 15 121/42 (68) 96 Room Air 06/25/19 01:00 114 13 92/38 (56) 96 Room Air 06/25/19 01:00 114 06/25/19 00:00 117 16 105/41 (62) 96 Room Air 06/25/19 00:00 Room Air 06/25/19 00:00 36.9 06/24/19 23:35 Room Air 06/24/19 23:00 102 17 114/37 (62) 97 Room Air 06/24/19 22:00 105 16 103/39 (60) 96 Room Air 06/24/19 21:00 87 15 106/36 (59) 100 Room Air 06/24/19 20:12 36.2 89 99 21 06/24/19 20:00 Room Air 06/24/19 20:00 97 18 121/48 (72) 99 Room Air 06/24/19 19:00 89 12 128/47 (74) 99 Room Air 06/24/19 19:00 88 06/24/19 18:46 36.2 18 99 Room Air 06/24/19 18:46 Room Air 06/24/19 18:40 Room Air 06/24/19 18:40 18 103/58 (73) 98 Room Air 06/24/19 18:30 18 104/53 (70) 96 Room Air 06/24/19 18:30 Room Air 06/24/19 18:20 18 105/37 (59) 100 Room Air 06/24/19 18:18 06/24/19 18:15 OxyMask 3 06/24/19 18:10 18 90/50 (63) 100 OxyMask 6 06/24/19 18:00 OxyMask 6 06/24/19 18:00 18 98/76 (83) 100 OxyMask 6 06/24/19 17:58 89 06/24/19 17:50 18 131/68 (89) 100 OxyMask 6 06/24/19 17:47 OxyMask 6 06/24/19 17:47 36.1 15 99/40 (59) 97 OxyMask 6 06/24/19 14:34 82 16 109/66 97 Room Air I & O 06/25/19 07:00 Intake Total 9635 ml Output Total 995 ml Balance 8640 ml Capillary Refill : Less Than 3 SecondsLess Than 3 Seconds General Appearance: No Apparent Distress, WD/WN HEENT: PERRL/EOMI, Moist Mucous Membranes, Other (NG tube in place) Neck: Normal Inspection, Other (central line in right neck) Respiratory: Chest Non Tender, Lungs Clear, Normal Breath Sounds Cardiovascular: Regular Rate, Rhythm, No Murmur Peripheral Pulses: 1+ Radial Pulses (R), 1+ Radial Pulses (L) Gastrointestinal: normal bowel sounds, tenderness, other ([address]) Extremity: No Calf Tenderness, No Pedal Edema Neurologic/Psychiatric: Alert, Oriented x3, Normal Mood/Affect Skin: Normal Color, Warm/Dry, Other (midline surigcal incision closed with erica) Results Lab Laboratory Tests 06/24/19 12:50: Glucometer 161H, Lactic Acid Level 3.04*H 06/25/19 03:05: Lactic Acid Level 0.91, White Blood Count 13.9H, Red Blood Count 3.65L, Hemoglobin 10.0#L, Hematocrit 31L, Mean Corpuscular Volume 84, Mean Corpuscular Hemoglobin 27, Mean Corpuscular Hemoglobin Concent 33, Red Cell Distribution Width 16.5H, Platelet Count 292, Mean Platelet Volume 8.9, Neutrophils (%) (Auto) 88H, Lymphocytes (%) (Auto) 8L, Monocytes (%) (Auto) 4, Eosinophils (%) (Auto) 0, Basophils (%) (Auto) 0, Neutrophils # (Auto) 12.3H, Lymphocytes # (Auto) 1.0, Monocytes # (Auto) 0.6, Eosinophils # (Auto) 0.0, Basophils # (Auto) 0.0, Sodium Level 139, Potassium Level 3.9, Chloride Level 111H, Carbon Dioxide Level 19L, Anion Gap 9, Blood Urea Nitrogen 14, Creatinine 0.88, Estimat Glomerular Filtration Rate > 60, BUN/Creatinine Ratio 16, Glucose Level 177H, Calcium Level 6.3L, Corrected Calcium 8.1L, Phosphorus Level 4.1, Magnesium Level 0.9*L, Total Bilirubin 0.3, Aspartate Amino Transf (AST/SGOT) 20, Alanine Aminotransferase (ALT/SGPT) 21, Alkaline Phosphatase 59, Total Protein 4.0L, Albumin 1.8L 06/25/19 09:30: Sodium Level 142, Potassium Level 3.8, Chloride Level 112H, Carbon Dioxide Level 20L, Anion Gap 10, Blood Urea Nitrogen 12, Creatinine 0.81, Estimat Glomerular Filtration Rate > 60, BUN/Creatinine Ratio 15, Glucose Level 177H, Calcium Level 6.8L, Corrected Calcium 8.0L, Phosphorus Level 3.4, Magnesium Level 1.7, Total Bilirubin 0.4, Aspartate Amino Transf (AST/SGOT) 20, Alanine Aminotransferase (ALT/SGPT) 18, Alkaline Phosphatase 53, Total Protein 4.5L, Albumin 2.5L Microbiology 06/24/19 Influenza Types A,B Antigen ([facility]) - Final, Complete Assessment/Plan Assessment/Plan Assessment/Plan S/P Gram Patch Perforated Gastric Pouch History of Gastric bypass Electrolyte abnormality - being replaced Remain NPO at this time, may wet mouth with sponge. Encouraged use of incentive spirometer and that patient get up to chair. Keep NG tube in place, do not advance due to risk of reopening the perforation in gastric pouch. Abdominal fluid culture pending. Continue Abx ROBYN POWERS DO 06/25/19 1129: Subjective Subjective/Events-last exam Patient still with abdominal pain all over but starting to be a little better. NPO. Ng tube in place. Thierry drains with slight cloudy/serous fluid. Urine output low over night. Denies n/v fever sweats chills shortness of breath or chest pain. Objective Exam General Appearance: No Apparent Distress, WD/WN HEENT: PERRL/EOMI Neck: Normal Inspection Respiratory: Chest Non Tender, Normal Breath Sounds Cardiovascular: Regular Rate, Rhythm Gastrointestinal: normal bowel sounds, tenderness (incisional, thierry drains with cloudy serous fluid) Neurologic/Psychiatric: Alert, Oriented x3, Normal Mood/Affect Skin: Normal Color, Warm/Dry Lymphatic: No Adenopathy Assessment/Plan Assessment/Plan Assessment/Plan s/p lap to open exloratory laparotomy with sudhir patch for perforated gastric pouch hx gastric bypass electrolyte abnormality replace per protocol strict npo can use wet sponge up to chair continue abx scott for accurate i/0 IS protonix drip will need gastrograffin study to evaluate in about 4 days Supervisory-Addendum Brief Verification & Attestation Participated in pt care: history, MDM, physical Personally performed: exam, history, MDM, supervision of care Care discussed with: Medical Student Procedures: n/a Results interpretation: Verified all documentation Verification and Attestation of Medical Student E/M Service A medical student performed and documented this service in my presence. I r eviewed and verified all information documented by the medical student and made modifications to such information, when appropriate. I personally performed the physical exam and medical decision making. Robyn Powers, Jun 25, 2019,11:32 SUKUMAR CORREIA MED STUDENT Jun 25, 2019 10:57 ROBYN POWERS DO Jun 25, 2019 11:29
[2019-06-25] MEDS: PHARMACY TO DOSE IV SCH (10:59)
--- NOTE | 2019-06-25 11:39 | Diagnostic Imaging Report ---
EXAMINATION: Portable erect AP chest at 4:16 AM. INDICATION: Atrial fibrillation. FINDINGS: In the interval since the prior exam of 06/24/2019, the small postoperative pneumoperitoneum beneath the right hemidiaphragm has essentially resolved. There is only minimal free air still present. The heart size is stable when compared to the prior exam. The lungs are generally clear. There is still a small amount of atelectasis/infiltrate in both lung bases. The mediastinum is not widened. The osseous structures are intact. The supportive tubes and lines are unchanged in position. IMPRESSION: 1. The overall appearance of the chest has not changed significantly since the prior exam. There is still a small amount of atelectasis/infiltrate in both lung bases. 2. The postoperative pneumoperitoneum beneath the right hemidiaphragm noted on the prior exam has nearly completely resolved. Dictated by: Dictated on workstation # [id number]
[2019-06-25] MEDS: inSUlin ASPART (NovoLOG) 1 UNIT/0.01 ML (CHARGE PER UNIT) SC SCH ×2 (12:00→18:03)
--- NOTE | 2019-06-25 12:33 | Progress Note - Hospitalist ---
Subjective HPI/CC On Admission Date Seen by Provider: Jun 25, 2019 Time Seen by Provider: 12:00 Chief complaint: Perforated intestine History of present illness: This is a 49-year-old white female clinic patient of [facility] with a past medical history of gastric bypass and multiple abdominal surgeries who presented to the hospital via paramedics due to severe abdominal pain nausea and vomiting. CT scan obtained showing free air suggesting perforation. Dr. Taylor was consulted to place central line urgently due to septic shock status requiring aggressive IV fluid resuscitation and pressor therapy. She is placed on broad-spectrum antibiotics with Diflucan Zosyn and vancomycin. Patient was urgently taken to surgery and she was well aware of this plan and agreed with the management. Subjective/Events-last exam Patient doing much better Pain is controlled We will get out of bed in a few minutes with nursing help We will start TPN since she is n.p.o. for 5 days Will need inpatient rehab PT/OT ordered Reviewed labs and meds Overall progressing nicely Review of Systems Gastrointestinal: Abdominal Pain Focused Exam Lactate Level 06/24/19 09:46: Lactic Acid Level 2.41*H 06/24/19 12:50: Lactic Acid Level 3.04*H 06/25/19 03:05: Lactic Acid Level 0.91 Time of Focused Exam: 13:25 Objective Exam Vital Signs Vital Signs Date Time Temp Pulse Resp B/P (MAP) Pulse Ox O2 Delivery O2 Flow Rate FiO2 06/25/19 16:00 118 17 152/78 (102) 99 Room Air 06/25/19 11:25 36.6 06/24/19 20:12 21 06/24/19 18:15 3 Capillary Refill : Less Than 3 SecondsLess Than 3 Seconds General Appearance: No Apparent Distress, WD/WN, Chronically ill Respiratory: Chest Non Tender, Lungs Clear, Normal Breath Sounds, No Accessory Muscle Use, No Respiratory Distress Cardiovascular: Regular Rate, Rhythm, No Edema, No Gallop, No JVD, No Murmur, Normal Peripheral Pulses Neurologic/Psychiatric: Alert, Oriented x3, No Motor/Sensory Deficits, Normal 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 Assessment/Plan Assessment and Plan Assess & Plan/Chief Complaint Assessment: Septic shock Acute abdominal pain with perforation on CT scan with free air s/p repair Dr Taylor POD # 1 h/o multiple abdominal surgeries Post op ileus NGT maintained Plan: TPN since NPO 5 days Pain control OOB today PT/OT IRF Diagnosis/Problems Diagnosis/Problems (1) Septic shock Status: Acute (2) Gastrointestinal perforation Status: Acute (3) Nausea and vomiting Status: Acute Qualifiers: Vomiting type: unspecified Vomiting Intractability: non-intractable Qualified Codes: R11.2 - Nausea with vomiting, unspecified (4) History of Bret-en-Y gastric bypass Status: Acute DIONICIO TURNER DO Jun 25, 2019 12:33
[2019-06-25] MEDS ORDERED: TPN IV SCH (13:45)
[2019-06-25] MEDS ORDERED: CALCIUM GLUC. 10% 4.65 MEQ/10 ML VIAL IV ONE (13:45)
[2019-06-25] MEDS ORDERED: CALCIUM GLUCONATE IV NR (14:22)
[2019-06-25] MEDS ORDERED: NS IV NR (14:22)
--- NOTE | 2019-06-25 14:53 | Anesthesia-General Post-Op ---
General Patient Condition Mental Status/LOC: Same as Preop Cardiovascular: Satisfactory Nausea/Vomiting: Absent Respiratory: Satisfactory Pain: Controlled Complications: Absent Post Op Complications Complications None Follow Up Care/Instructions Patient Instructions None needed. Anesthesia/Patient Condition Patient Condition Patient is doing well, no complaints, stable vital signs, no apparent adverse anesthesia problems. No complications reported per nursing. ALBERTA ZAMUDIO CRNA Jun 25, 2019 14:53
[2019-06-25] MEDS ORDERED: [UNRECOGNIZED DRUG - OTHER] IV SCH ×10 (17:00)
[2019-06-25] MEDS ORDERED: SODIUM CHLORIDE IV SCH ×10 (17:00)
[2019-06-25] MEDS ORDERED: POTASSIUM PHOSPHATE IV SCH ×10 (17:00)
[2019-06-25] MEDS: PANTOPRAZOLE INJECTION 200 MG in NS (IVPB) 100 ML IV SCH (18:03)
[2019-06-25] MEDS: morphine PCA 100 MG/100 ML BAG IV PRN (18:14)
[2019-06-25] MEDS: VANCOMYCIN 1500 MG/NS 500 ML IVPB IV SCH ×2 (20:35)
[2019-06-26] VITALS (19 sets, daily range): BP systolic 111–183; BP diastolic 60–103
[2019-06-26] MEDS: inSUlin ASPART (NovoLOG) 1 UNIT/0.01 ML (CHARGE PER UNIT) SC SCH ×4 (00:10→17:10)
[2019-06-26] MEDS: LACTATED RINGERS 1,000 ML IV SCH ×4 (00:11→17:14)
--- NOTE | 2019-06-26 00:27 | NUR ---
Pt feeling very anxious and restless despite non-pharmacological interventions to relax. Requesting pharmacological measures. This RN called EICU at this time.
[2019-06-26] MEDS ORDERED: HYDROmorphone 2 MG/ML VIAL (DILAUDID) IV PRN (01:15)
[2019-06-26 03:52] LABS: BASOPHILS % (AUTO) 0 % (0-10); EOSINOPHILS % (AUTO) 0 % (0-10); HEMATOCRIT 26 % (35-52); HEMOGLOBIN 8.6 G/DL (11.5-16.0); LYMPHOCYTES # (AUTO) 0.6 X 10^3 (1.0-4.0); LYMPHOCYTES % (AUTO) 6 % (12-44); MEAN CORPUSCULAR HEMOGLOBIN 28 PG (25-34); MEAN CORPUSCULAR HGB CONC 33 G/DL (32-36); MEAN CORPUSCULAR VOLUME 85 FL (80-99); MEAN PLATELET VOLUME 9.1 FL (7.4-10.4); MONOCYTES # (AUTO) 0.3 X 10^3 (0.0-1.0); MONOCYTES % (AUTO) 3 % (0-12); NEUTROPHILS # (AUTO) 8.7 X 10^3 (1.8-7.8); NEUTROPHILS % (AUTO) 90 % (42-75); PLATELET COUNT 244 10^3/uL (130-400); RED CELL DISTRIBUTION WIDTH 16.5 % (10.0-14.5); WHITE BLOOD COUNT 9.7 10^3/uL (4.3-11.0)
[2019-06-26 04:20] LABS: BUN/CREATININE RATIO 12; CALCIUM 7.2 MG/DL (8.5-10.1); CARBON DIOXIDE 22 MMOL/L (21-32); CHLORIDE 111 MMOL/L (98-107); CREATININE SERUM 0.73 MG/DL (0.60-1.30); GFR ESTIMATED > 60; GLUCOSE 206 MG/DL (70-105); MAGNESIUM 1.7 MG/DL (1.6-2.4); PHOSPHORUS 1.9 MG/DL (2.3-4.7); POTASSIUM 3.6 MMOL/L (3.6-5.0); SODIUM 139 MMOL/L (135-145)
[2019-06-26] MEDS: POTASSIUM CL 10MEQ/50ML IVPB 50 ML IV SCH ×5 (04:51→08:08)
[2019-06-26] MEDS: MAGNESIUM 1 GM/100 ML IVPB 100 ML IV SCH ×3 (04:52→06:05)
[2019-06-26] MEDS: KCL 20 MEQ TAB (K-DUR) PO SCH (04:52)
[2019-06-26] MEDS: PIPERACILLIN/TAZOBACTAM (BULK) 4.5 GM in NS (IVPB) 100 ML IV SCH ×3 (05:05→20:59)
--- NOTE | 2019-06-26 05:40 | Pulmonary Progress Note ---
Subjective Time Seen by a Provider: 07:37 Subjective/Events-last exam No complications noted. Sepsis Event Evaluation Height, Weight, BMI Height: 5'5.00" Weight: 200lbs. 0.0oz. 90.548761nz; 29.00 BMI Method:Stated Focused Exam Lactate Level 06/24/19 09:46: Lactic Acid Level 2.41*H 06/24/19 12:50: Lactic Acid Level 3.04*H 06/25/19 03:05: Lactic Acid Level 0.91 Time of Focused Exam: 13:25 Exam Exam Vital Signs Date Time Temp Pulse Resp B/P (MAP) Pulse Ox O2 Delivery O2 Flow Rate FiO2 06/26/19 05:00 95 10 115/60 (78) Room Air 06/26/19 04:00 36.0 06/26/19 04:00 Room Air 06/26/19 04:00 93 10 111/65 (80) Room Air 06/26/19 03:00 107 9 116/67 (83) Room Air 06/26/19 02:00 112 14 119/68 (85) 94 Room Air 06/26/19 01:05 102 06/26/19 01:00 107 12 116/68 (84) 95 Room Air 06/26/19 00:00 Room Air 06/26/19 00:00 110 15 141/82 (101) 97 Room Air 06/25/19 23:43 36.2 06/25/19 23:00 111 15 151/76 (101) 96 Room Air 06/25/19 22:00 112 17 145/71 (95) 98 Room Air 06/25/19 21:00 126 9 163/81 (108) 98 Room Air 06/25/19 20:00 125 10 157/74 (101) 99 Room Air 06/25/19 20:00 Room Air 06/25/19 20:00 36.0 06/25/19 19:25 97 Room Air 06/25/19 19:00 105 06/25/19 19:00 105 11 131/64 (86) 97 Room Air 06/25/19 18:14 11 06/25/19 18:00 114 10 153/88 (109) 98 Room Air 06/25/19 17:00 121 15 113/97 (102) 98 Room Air 06/25/19 16:00 118 17 152/78 (102) 99 Room Air 06/25/19 16:00 Room Air 06/25/19 15:00 122 14 92/80 (84) 92 Room Air 06/25/19 14:35 97 Room Air 06/25/19 14:00 106 114/65 (81) Room Air 06/25/19 13:00 120 6 112/47 (68) 93 Room Air 06/25/19 12:26 121 06/25/19 12:00 Room Air 06/25/19 12:00 120 20 98/44 (62) 97 Room Air 06/25/19 11:25 36.6 112 13 118/55 (76) 97 06/25/19 11:00 111 13 116/53 (74) 97 Room Air 06/25/19 10:40 96 Room Air 06/25/19 10:00 109 12 127/52 (77) 96 Room Air 06/25/19 09:00 108 12 103/60 (74) 95 Room Air 06/25/19 08:00 Room Air 06/25/19 08:00 103 9 134/42 (72) 96 Room Air 06/25/19 07:24 96 Room Air 06/25/19 07:00 101 06/25/19 07:00 107 9 137/47 (77) 94 Room Air 06/25/19 06:00 105 13 105/43 (63) 94 Room Air I & O 06/26/19 07:00 Intake Total 225 ml Output Total 3430 ml Balance -3205 ml Height & Weight Height: 5'5.00" Weight: 200lbs. 0.0oz. 90.254009fh; 29.00 BMI Method:Stated General Appearance: No Apparent Distress, WD/WN, Chronically ill HEENT: PERRL/EOMI Neck: Normal Inspection Respiratory: Chest Non Tender, Lungs Clear, Normal Breath Sounds, No Accessory Muscle Use, No Respiratory Distress Cardiovascular: Regular Rate, Rhythm, No Edema, No Gallop, No JVD, No Murmur, Normal Peripheral Pulses Capillary Refill: Less Than 3 Seconds Peripheral Pulses: 1+ Radial Pulses (R), 1+ Radial Pulses (L) Gastrointestinal: normal bowel sounds, tenderness (incisional, trae drains with cloudy serous fluid) Extremity: No Calf Tenderness, No Pedal Edema Neurologic/Psychiatric: Alert, Oriented x3, No Motor/Sensory Deficits, Normal 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 Hypotension - improved -Pt is now off levophed decreased UO -- -Currently 22ml/hr -Continue LR - decrease to 80cc/hr since TPN is now infusing Hypomag, hypocalcemia -1 amp of Calcium gluconate -replace with 4grms of mgsulfate then repeat labs Anemia -Monitor NIDDM -SSI -Monitor REBEKA TOUSSAINT DO Jun 26, 2019 05:40
[2019-06-26] MEDS: RT-ALBUTEROL SULF 2.5 MG/3 ML PRE-MIX VIAL INH SCH ×3 (06:48→19:37)
[2019-06-26] MEDS ORDERED: SODIUM PHOSPHATE INJ 30 MM in NS (IVPB) 250 ML IV ONE (07:24)
[2019-06-26] MEDS: VANCOMYCIN 1500 MG/NS 500 ML IVPB IV SCH ×4 (07:42→20:59)
[2019-06-26] MEDS: FLUCONAZOLE 200 MG/100 ML 100 ML IV SCH (08:02)
--- NOTE | 2019-06-26 08:23 | Progress Note ---
ALEXA SOLIS MED STUDENT 06/26/19 0823: Subjective Date Seen by a Provider: Jun 26, 2019 Time Seen by a Provider: 08:27 Subjective/Events-last exam When I saw Ms. Pena today she reported feeling about the same as yesterday, only new development is that she saw PT yesterday, who had her walk some. 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 She seems understandably upset about her condition, which she reports was brought on by months of recurrent vomiting, which was caused by stress and anxiety from her personal life. Nursing reports that during the night she anxious and restless about her condition despite non-pharmacologic intervention, and pharmacologic assistance was requested. Otherwise, she has no new complaints. Review of Systems General: No Chills Pulmonary: No Dyspnea Cardiovascular: No: Chest Pain, Edema Gastrointestinal: Abdominal Pain; No: Nausea, Vomiting Neurological: No: Numbness Focused Exam Lactate Level 06/24/19 09:46: Lactic Acid Level 2.41*H 06/24/19 12:50: Lactic Acid Level 3.04*H 06/25/19 03:05: Lactic Acid Level 0.91 Time of Focused Exam: 13:25 Objective Exam Last Set of Vital Signs Vital Signs Date Time Temp Pulse Resp B/P (MAP) Pulse Ox O2 Delivery O2 Flow Rate FiO2 06/26/19 06:47 98 Room Air 06/26/19 06:00 92 10 112/64 (80) 06/26/19 04:00 36.0 06/24/19 20:12 21 06/24/19 18:15 3 Capillary Refill : Less Than 3 SecondsLess Than 3 Seconds I&O Intake and Output 06/26/19 00:00 Intake Total 3920 ml Output Total 2835 ml Balance 1085 ml Intake Oral 0 ml IV Total 3920 ml Output Urine Total 1575 ml Drainage Total 1260 ml General: Alert, Oriented X3, Cooperative Lungs: Clear to Auscultation Heart: Regular Rate, Normal S1, Normal S2, No Murmurs Extremities: No Clubbing, No Cyanosis, No Edema Results Lab Laboratory Tests 06/25/19 09:30: Sodium Level 142, Potassium Level 3.8, Chloride Level 112H, Carbon Dioxide Level 20L, Anion Gap 10, Blood Urea Nitrogen 12, Creatinine 0.81, Estimat Glomerular Filtration Rate > 60, BUN/Creatinine Ratio 15, Glucose Level 177H, Calcium Level 6.8L, Corrected Calcium 8.0L, Phosphorus Level 3.4, Magnesium Level 1.7, Total Bilirubin 0.4, Aspartate Amino Transf (AST/SGOT) 20, Alanine Aminotransferase (ALT/SGPT) 18, Alkaline Phosphatase 53, Total Protein 4.5L, Albumin 2.5L 06/25/19 11:27: Glucometer 159H 06/26/19 03:34: Sodium Level 139, Potassium Level 3.6, Chloride Level 111H, Carbon Dioxide Level 22, Anion Gap 6, Blood Urea Nitrogen 9, Creatinine 0.73, Estimat Glomerular Filtration Rate > 60, BUN/Creatinine Ratio 12, Glucose Level 206H, Calcium Level 7.2L, Phosphorus Level 1.9L, Magnesium Level 1.7, White Blood Count 9.7, Red Blood Count 3.08L, Hemoglobin 8.6L, Hematocrit 26L, Mean Corpuscular Volume 85, Mean Corpuscular Hemoglobin 28, Mean Corpuscular Hemoglobin Concent 33, Red Cell Distribution Width 16.5H, Platelet Count 244, Mean Platelet Volume 9.1, Neutrophils (%) (Auto) 90H, Lymphocytes (%) (Auto) 6L, Monocytes (%) (Auto) 3, Eosinophils (%) (Auto) 0, Basophils (%) (Auto) 0, Neutrophils # (Auto) 8.7H, Lymphocytes # (Auto) 0.6L, Monocytes # (Auto) 0.3, Eosinophils # (Auto) 0.0, Basophils # (Auto) 0.0 Microbiology 06/24/19 Blood Culture - Preliminary, Resulted No growth 06/24/19 Gram Stain - Final, Resulted 06/24/19 Anaerobic Culture, Resulted Pending 06/24/19 Body Fluid Culture - Preliminary, Resulted YEAST Gram Pos Mixed Bacterial Amelie 06/24/19 MRSA Screen - Final, Complete MRSA not isolated Assessment/Plan Assessment/Plan Assess & Plan/Chief Complaint Assessment: Acute abdominal pain with perforation on CT scan with free air s/p repair Dr Taylor POD # 1 Septic shock anemia h/o multiple abdominal surgeries Post op ileus NGT maintained Plan: Continue medications for sepsis TPN since NPO 5 days Pain control Continue PT/OT monitor anemia TURNER,KARYN DO 06/26/192048: Subjective Subjective/Events-last exam Pt having pretty good day Pain is controlled TPN started and tolerated 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 Inpatient rehab will be evaluated Assessment/Plan Assessment/Plan Assess & Plan/Chief Complaint TPN to continue PT/OT IRF Diagnosis/Problems Diagnosis/Problems (1) Septic shock Status: Acute (2) Gastrointestinal perforation Status: Acute (3) Nausea and vomiting Status: Acute Qualifiers: Qualified Codes: R11.2 - Nausea with vomiting, unspecified Supervisory-Addendum Brief Verification & Attestation Participated in pt care: history, MDM, physical Personally performed: exam, history, MDM, supervision of care Care discussed with: Medical Student Procedures: n/a Results interpretation: Verified all documentation Verification and Attestation of Medical Student E/M Service A medical student performed and documented this service in my presence. I reviewed and verified all information documented by the medical student and made modifications to such information, when appropriate. I personally performed the physical exam and medical decision making. Karyn Turner, Jun 26, 2019,20:49 ALEXA SOLIS MED STUDENT Jun 26, 2019 08:23 KARYN TURNER DO Jun 26, 2019 20:49
[2019-06-26] MEDS: PHARMACY TO DOSE IV SCH (09:13)
--- NOTE | 2019-06-26 10:48 | Physical Therapy Evaluation ---
PT Evaluation-General Medical Diagnosis Admission Date June 24, 2019 Medical Diagnosis: Laparoscopy/gastrointestinal perforation Onset Date: Jun 24, 2019 Therapy Diagnosis Therapy Diagnosis: debility/weakness Height/Weight Height (Feet): 5 Height (Inches): 5.00 Weight (Pounds): 200 Weight (Ounces): 0.0 Precautions Precautions/Isolations: Fall Prevention, Standard Precautions, Pressure Ulcer Weight Bear Status Right Lower Extremity: Right Full Weight Bearing Left Lower Extremity: Left Full Weight Bearing Referral Physician: Brandon Reason for Referral: Evaluation/Treatment Medical History Pertinent Medical History: DM Additional Medical History gastric bypass 2006 Current History EMS secondary to lethargy/AMS/weakness Reviewed History: Yes Social History Home: Single Level Current Living Status: Spouse Prior Prior Level of Function Therapy Quality Codes: 6 Independent with activity with or without an assistive device 5 Patient requires set up or clean up by helper. Patient completes activity by themselves 4 Supervision or touching assist (CGA). [place] provide cues , steadying assist 3 The helper provides less than half the effort to complete the activity 2 The helper provides more than half the effort to complete the activity 1 Dependent. The helper does all the effort to complete an activity 7 Patient refused to complete or attempt activity 9 The patient did not perform the activity before the current illness or injury 88 Not attempted due to Medical conditions or safety concerns Bed Mobility: 6 Transfers (B,C,W/C): 6 Gait: 6 Stairs: 6 Indoor Mobility (Ambulation): Independent Stairs: Independent Prior Devices Use: None PT Evaluation-Current Subjective Patient agrees to PT. Pain Numeric Pain Scale: 10-Worst Possible Pain Location: Lower Location Body Site: Abdomen Pain Description: Acute Objective Patient Orientation: Normal For Age Problem Solving: Fair Attachments: NG Tube, Oxygen, Drains, Nash Catheter, IV ROM/Strength ROM Lower Extremities bilateral LE WFL Strength Lower Extremities 4-/5 grossly bilateral LE Integumentary/Posture Integumentary refer to nursing notes Bladder Incontinence: Nash Cath Posture WFL Neuromuscular (Tone, Coordination, Reflexes) grossly intact Sensory Vision: Functional Hearing: Functional Sensation Right Lower Extremit: Intact Sensation Left Lower Extremity: Intact Transfers Roll Left to Right (QC): 5 Sit to Lying (QC): 5 Lying to Sitting/Side of Bed(Q: 5 Sit to Stand (QC): 5 Chair/Zgp-ju-Duttj Xfer(QC): 5 Gait Does the Patient Walk?: Yes Mode of Locomotion: Walk Anticipated Mode of Locomotion: Walk Distance (FIM): 1=up to 49 ft Walk 10 feet (QC): 5 Walk 50 ft with 2 Turns(QC): 88 Walk 150 ft (QC): 88 Distance: 25' Gait Level of Assist: 5 Gait Assistive Device: FWW Comments/Gait Description slow, steady functional gait sequence Balance Sitting Static: Normal Sitting Dynamic: Normal Standing Static: Normal Standing Dynamic: Normal Picking up an Object (QC): 88 Assessment/Needs 49 y.o. female, will benefit from skilled PT to address functional mobility to improve current LOF to safely return to home at maximum LOF. Rehab Potential: Fair PT Senior Care Goals Wheat Grower Goals PT Wheat Grower Goals Time Frame: Jul 15, 2019 Sit to Lying (QC): 6 Lying-Sitting on Side/Bed(QC): 6 Sit to Stand (QC): 6 Roll Left to Right (QC): 6 Chair/Rbb-ex-Dbwhg Xfer(QC): 6 Car Transfer (QC): 6 Does the Patient Walk: Yes Distance: 250' Walk 10 feet (QC): 6 Walk 10ft-Uneven Surface(QC): 6 Walk 50ft with 2 Turns (QC): 6 Walk 150 ft (QC): 6 Gait Assistive Device: None, FWW # of Steps: 4 1 Step (curb) (QC): 6 4 Steps (QC): 6 12 Steps (QC): 9 Stairs Level Of Assist: 6 Picking up an Object (QC): 6 PT Plan Problem List Problem List: Activity Tolerance, Functional Strength, Safety, Balance, Gait, Transfer, Bed Mobility Treatment/Plan Treatment Plan: Continue Plan of Care Treatment Plan: Bed Mobility, Education, Functional Activity Carmina, Functional Strength, Gait, Safety, Therapeutic Exercise, Transfers Treatment Duration: Jul 15, 2019 Frequency: 6 times per week Estimated Hrs Per Day: .25 hour per day Patient and/or Family Agrees t: Yes Time/GCodes Time In: 930 Time Out: 946 Total Billed Treatment Time: 16 Total Billed Treatment 1 visit EVModC 16 min RYAN ESCALANTE PT Jun 26, 2019 10:48
--- NOTE | 2019-06-26 15:39 | Occupational Therapy Eval ---
OT Evaluation-General/PLF Medical Diagnosis Admission Date 06-24-19 Medical Diagnosis: Laparoscopy/gastrointestinal perforation Onset Date: Jun 24, 2019 Therapy Diagnosis Therapy Diagnosis: Weakness Height/Weight Height (Feet): 5 Height (Inches): 5.00 Weight (Pounds): 200 Weight (Ounces): 0.0 Precautions Precautions/Isolations: Fall Prevention, Standard Precautions, Pressure Ulcer Safety Interventions: None Weight Bear Status Weight Bearing Restriction: Weight Bearing/Tolerated Referral Physician: Brandon Referral Reason: Activity Tolerance, Self Care, Evaluation/Treatment, Strengthening/ROM Medical History Pertinent Medical History: DM Additional Medical History Gastric bypass, D and C x 5, colonoscopy, hysterectomy, diabetes, fibromyalgia Current History Pt. became ill and came to ER due to excessive vomiting and abdominal pain. Reviewed History: Yes Social History Home: Single Level Current Living Status: Spouse Entry Into Home: Ramp ADL-Prior Level of Function SCALE: Activities may be completed with or without assistive devices. 9-Bogywxuofw-hmallha completes the activity by him/herself with no assistance from a helper. 5-Set-up or Clean-up Assistance-helper sets up or cleans up; patient completes activity. [place] assists only prior to or following the activity. 4-Supervision or Touching Assistance-helper provides verbal cues and/or touching/steadying and/or contact guard assistance as patient completes activity. Assistance may be provided throughout the activity or intermittently. 3-Partial/Moderate Assistance-helper does LESS THAN HALF the effort. [place] l ifts, holds or supports trunk or limbs, but provides less than half the effort. 2-Substantial/Maximal Assistance-helper does MORE THAN HALF the effort. [place] lifts or holds trunk or limbs and provides more than half the effort. 6-Dhjwjujmo-zglzkg does ALL the effort. Patient does none of the effort to complete the activity. Or, the assistance of 2 or more helpers is required for t he patient to complete the activity. If activity was not attempted, code reason: 7-Patient Refused. 9-Not Applicable-not attempted and the patient did not perform the activity before the current illness, exacerbation or injury. 10-Not Attempted due to Environmental Limitations-(lack of equipment, weather restraints, etc.). 88-Not Attempted due to Medical Conditions or Safety Concerns. ADL PLOF Comments Pt. was independent with daily tasks. Pt. had second job interview scheduled f or this at [facility]. No daily equipment needed previous to this hospitalization. Self Care: Independent Functional Cognition: Independent DME/Equipment: Tub/Shower Drive Self: Yes OT Current Status Subjective Pt. has WHITE SUGAR BOILER that she pushes for pain control. Reports 5/10 pain in abdomen. Appearance Pt. in bed. Agrees to work with OT. Mental Status/Objective Patient Orientation: Person, Place, Time, Situation Attachments: IV, NG Tube, Oxygen, Telemetry Current Upper Extremity ROM WFL Upper Extremity Coordination intact ADL-Treatment Eating (QC): 88 Oral Hygiene (QC): 88 Shower/Bathe Self (QC): 10 Upper Body Dressing (QC): 10 Lower Body Dressing (QC): 1 On/Off Footwear (QC): 1 Toileting Hygiene (QC): 1 Toilet Transfer (QC): 10 Other Treatments Pt. has multiple lines and tubing. Transferred supine-sit with max assist. Sat EOB approximately 15minutes. Washed face and stood with mod assist. Able to take several steps toward HOB. Max x 2 for sit-supine. All needs met back in bed. Pt. positioned to comfort level. Education OT Patient Education: Correct positioning, Modified ADL techniques, Progress toward Goal/Update tx plan, Purpose of tx/functional activities, Reviewed precautions, Rehab process, Transfer techniques Teaching Recipient: Patient Teaching Methods: Demonstration, Discussion Response to Teaching: Verbalize Understanding, Return Demonstration OT Short Term Goals Short Term Goals Time Frame: Jul 03, 2019 Eating(FIM): 5 Grooming(FIM): 5 Bathing(FIM): 3 Upper Body Dressing(FIM): 4 Lower Body Dressing(FIM): 3 Toileting(FIM): 3 Transfers (B,C,W/C) (FIM): 4 Toilet/Commode Transfer(FIM): 4 Additional Short Term Goals: 1-Demonstrate ADL Tasks, 2-Verbalize Understanding, 3-ImproveStrength/Carmina 1=Demonstrate adherence to instructed precautions during ADL tasks. 2=Patient will verbalize/demonstrate understanding of assistive devices/modifications for ADL. 3=Patient will improve strength/tolerance for activity to enable patient to perform ADL's. OT Fdc Goals Suction Dredge Dumping Supervisor Goals Time Frame: Jul 10, 2019 Eating (QC): 6 Oral Hygiene (QC): 6 Shower/Bathe Self (QC): 5 Upper Body Dressing (QC): 5 Lower Body Dressing (QC): 5 On/Off Footwear (QC): 5 Toileting Hygiene (QC): 6 Toilet/Commode Transfer (QC): 6 Additional Goals: 1-Demonstrate ADL Tasks, 2-Verbalize Understanding, 3- ImproveStrength/Carmina 1=Demonstrate adherence to instructed precautions during ADL tasks. 2=Patient will verbalize/demonstrate understanding of assistive devices/modifications for ADL. 3=Patient will improve strength/tolerance for activity to enable patient to perform ADL's. OT Education/Plan Problem List/Assessment Assessment: Decreased Activ Tolerance, Decreased UE Strength, Dependent Transfers, Impaired Bed Mobility, Impaired Funct Balance, Impaired I ADL's, Impaired Self-Care Skills Discharge Recommendations Plan/Recommendations: Continue POC Therapy Discharge Recommendati: Post Acute OT Comment Equipment and discharge needs to be determined. Treatment Plan/Plan of Care Treatment,Training & Education: Yes Patient would benefit from OT for education, treatment and training to promote independence in ADL's, mobility, safety and/or upper extremity function for ADL's. Plan of Care: ADL Retraining, Functional Mobility, UE Funct Exercise/Act Treatment Duration: Jul 10, 2019 Frequency: 5 times per week Estimated Hrs Per Day: .5 hour per day Agreement: Yes Rehab Potential: Good Time/GCodes Start Time: 13:55 Stop Time: 14:24 Total Time Billed (hr/min): 29 Billed Treatment Time 1, EVH x 15minutes, FA x 14minutes LILY POPE OT Jun 26, 2019 15:39
[2019-06-26] MEDS ORDERED: SODIUM ACETATE IV SCH ×9 (17:00)
[2019-06-26] MEDS ORDERED: POTASSIUM CHLORIDE IV SCH ×9 (17:00)
[2019-06-26] MEDS ORDERED: [UNRECOGNIZED DRUG - OTHER] IV SCH ×9 (17:00)
[2019-06-26] MEDS ORDERED: SODIUM PHOSPHATE IV SCH ×9 (17:00)
[2019-06-26] MEDS: PANTOPRAZOLE INJECTION 200 MG in NS (IVPB) 100 ML IV SCH (17:10)
[2019-06-26] MEDS ORDERED: TROUGH ORDER-PHARMACY XX NR (18:00)
--- NOTE | 2019-06-26 21:11 | Progress Note - Surgery ---
OSCAR GARCES [facility] 06/26/19 2111: Subjective Date Seen by a Provider: Jun 26, 2019 Time Seen by a Provider: 08:00 Subjective/Events-last exam Patient is doing better. Still has pain but describes it as surgical pain and ranks it as an 8/10. Nurses are emptying the bulbs connected to the drains 4 to 5 times a day but has slowed down. Patient denies Fevers, chills, SOB, chest pain. Patient is not vomiting but is h aving nausea. WBC is 9.7 with a Hgb of 8.6 Review of Systems General: No Chills, No Other (Fever) Pulmonary: No Dyspnea Cardiovascular: No: Chest Pain Gastrointestinal: Nausea, Abdominal Pain; No: Vomiting Focused Exam Lactate Level 06/24/19 09:46: Lactic Acid Level 2.41*H 06/24/19 12:50: Lactic Acid Level 3.04*H 06/25/19 03:05: Lactic Acid Level 0.91 Time of Focused Exam: 13:25 Objective Exam Vital Signs Date Time Temp Pulse Resp B/P (MAP) Pulse Ox O2 Delivery O2 Flow Rate FiO2 06/26/19 20:00 36.1 102 11 183/91 (121) 98 Room Air 06/26/19 19:37 97 Room Air 06/26/19 18:00 96 11 98 Room Air 06/26/19 17:00 105 13 142/103 (116) 98 Room Air 06/26/19 16:00 Room Air 06/26/19 16:00 96 11 146/88 (107) 96 Room Air 06/26/19 15:00 103 14 148/79 (102) 98 Room Air 06/26/19 14:00 111 15 149/93 (111) 97 Room Air 06/26/19 13:00 105 06/26/19 13:00 106 12 146/88 (107) 99 Room Air 06/26/19 12:00 117 16 152/92 (112) 96 Room Air 06/26/19 12:00 36.0 Room Air 06/26/19 12:00 Room Air 06/26/19 11:00 116 15 97 Room Air 06/26/19 10:34 Room Air 06/26/19 10:00 112 20 99 Room Air 06/26/19 09:00 104 11 148/88 (108) 99 Room Air 06/26/19 08:00 114 11 138/85 (102) 99 Room Air 06/26/19 08:00 Room Air 06/26/19 07:00 109 15 128/72 (90) 100 Room Air 06/26/19 07:00 109 06/26/19 07:00 36.2 Room Air 06/26/19 06:47 98 Room Air 06/26/19 06:00 92 10 112/64 (80) 98 Room Air 06/26/19 05:00 95 10 115/60 (78) Room Air 06/26/19 04:00 36.0 06/26/19 04:00 Room Air 06/26/19 04:00 93 10 111/65 (80) Room Air 06/26/19 03:00 107 9 116/67 (83) Room Air 06/26/19 02:00 112 14 119/68 (85) 94 Room Air 06/26/19 01:05 102 06/26/19 01:00 107 12 116/68 (84) 95 Room Air 06/26/19 00:00 Room Air 06/26/19 00:00 110 15 141/82 (101) 97 Room Air 06/25/19 23:43 36.2 06/25/19 23:00 111 15 151/76 (101) 96 Room Air 06/25/19 22:00 112 17 145/71 (95) 98 Room Air I & O 06/26/19 07:00 Intake Total 2420 ml Output Total 3430 ml Balance -1010 ml Capillary Refill : Less Than 3 SecondsLess Than 3 Seconds General Appearance: WD/WN, Chronically ill HEENT: PERRL/EOMI Neck: Normal Inspection Respiratory: Chest Non Tender, Lungs Clear, Normal Breath Sounds, No Accessory Muscle Use, No Respiratory Distress Cardiovascular: Regular Rate, Rhythm, No Gallop, No JVD, No Murmur Gastrointestinal: tenderness (incisional, thierry drains with cloudy serous fluid) Neurologic/Psychiatric: Alert, Oriented x3, No Motor/Sensory Deficits, Normal Mood/Affect, flight teacher II-XII Norm as Tested Skin: Normal Color, Warm/Dry Lymphatic: No Adenopathy Results Lab Laboratory Tests 06/26/19 03:34: White Blood Count 9.7, Red Blood Count 3.08L, Hemoglobin 8.6L, Hematocrit 26L, Mean Corpuscular Volume 85, Mean Corpuscular Hemoglobin 28, Mean Corpuscular Hemoglobin Concent 33, Red Cell Distribution Width 16.5H, Platelet Count 244, Mean Platelet Volume 9.1, Neutrophils (%) (Auto) 90H, Lymphocytes (%) (Auto) 6L, Monocytes (%) (Auto) 3, Eosinophils (%) (Auto) 0, Basophils (%) (Auto) 0, Neutrophils # (Auto) 8.7H, Lymphocytes # (Auto) 0.6L, Monocytes # (Auto) 0.3, Eosinophils # (Auto) 0.0, Basophils # (Auto) 0.0, Sodium Level 139, Potassium Level 3.6, Chloride Level 111H, Carbon Dioxide Level 22, Anion Gap 6, Blood Urea Nitrogen 9, Creatinine 0.73, Estimat Glomerular Filtration Rate > 60, BUN/Creatinine Ratio 12, Glucose Level 206H, Calcium Level 7.2L, Phosphorus Level 1.9L, Magnesium Level 1.7 06/26/19 11:54: Glucometer 163H 06/26/19 17:47: Vancomycin Level Trough 17.3 Microbiology 06/24/19 Blood Culture - Preliminary, Resulted No growth 06/24/19 Gram Stain - Final, Resulted 06/24/19 Anaerobic Culture - Preliminary, Resulted No anaerobes isolated 06/24/19 Body Fluid Culture - Preliminary, Resulted YEAST Gram Pos Mixed Bacterial Amelie 06/24/19 MRSA Screen - Final, Complete MRSA not isolated Assessment/Plan Assessment/Plan Assessment/Plan TPN to continue PT/OT IRF Monitor drainage from intestinal drains. Clinical Quality Measures DVT/VTE Risk/Contraindication: Risk Factor Score Per Nursin RFS Level Per Nursing on Admit: 3=High ROBYN TAYLOR DO 06/26/192122: Subjective Subjective/Events-last exam Pain improving. NPO. NG tube in place. Thierry drains more serous fluid. No new complaints. Denies n/v fever sweats chills shortness of breath or chest pain. Objective Exam General Appearance: No Apparent Distress, WD/WN, Chronically ill HEENT: PERRL/EOMI, Normal ENT Inspection Neck: Normal Inspection Respiratory: Chest Non Tender, No Accessory Muscle Use, No Respiratory Distress Cardiovascular: Regular Rate, Rhythm Gastrointestinal: tenderness (incisional, thierry drains with cloudy serous fluid) Neurologic/Psychiatric: Alert, Oriented x3, No Motor/Sensory Deficits, Normal Mood/Affect, flight teacher II-XII Norm as Tested Skin: Normal Color, Warm/Dry Lymphatic: No Adenopathy Assessment/Plan Assessment/Plan Assessment/Plan s/p sudhir patch for perforated gastric pouch NPO Do not remove ng or advance, keep to LIWS SCD for dvt prophylaxis scott for accurate i/o Supervisory-Addendum Brief Verification & Attestation Participated in pt care: history, MDM, physical Personally performed: exam, history, MDM, supervision of care Care discussed with: Medical Student Procedures: n/a Results interpretation: Verified all documentation Verification and Attestation of Medical Student E/M Service A medical student performed and documented this service in my presence. I reviewed and verified all information documented by the medical student and made modifications to such information, when appropriate. I personally performed the physical exam and medical decision making. Robyn Taylor, Jun 26, 2019,21:22 OSCAR GARCES [facility] Jun 26, 2019 21:11 ROBYN TAYLOR DO Jun 26, 2019 21:23
[2019-06-26] MEDS ORDERED: ACETAMINOPHEN 650 MG SUPP (TYLENOL) ONE (23:08)
[2019-06-26] MEDS: morphine PCA 100 MG/100 ML BAG IV PRN (23:15)
[2019-06-26] MEDS ORDERED: ACETAMINOPHEN 650 MG SUPP (TYLENOL) PR ONE (23:30)
[2019-06-27] VITALS (14 sets, daily range): BP systolic 128–169; BP diastolic 68–99
[2019-06-27] MEDS: inSUlin ASPART (NovoLOG) 1 UNIT/0.01 ML (CHARGE PER UNIT) SC SCH ×4 (00:37→18:20)
[2019-06-27 03:38] LABS: BASOPHILS % (AUTO) 0 % (0-10); EOSINOPHILS # (AUTO) 0.1 10^3/uL (0.0-0.3); EOSINOPHILS % (AUTO) 2 % (0-10); HEMATOCRIT 25 % (35-52); HEMOGLOBIN 8.1 G/DL (11.5-16.0); LYMPHOCYTES # (AUTO) 0.8 X 10^3 (1.0-4.0); LYMPHOCYTES % (AUTO) 10 % (12-44); MEAN CORPUSCULAR HEMOGLOBIN 27 PG (25-34); MEAN CORPUSCULAR HGB CONC 32 G/DL (32-36); MEAN CORPUSCULAR VOLUME 86 FL (80-99); MEAN PLATELET VOLUME 8.7 FL (7.4-10.4); MONOCYTES # (AUTO) 0.3 X 10^3 (0.0-1.0); MONOCYTES % (AUTO) 4 % (0-12); NEUTROPHILS # (AUTO) 6.6 X 10^3 (1.8-7.8); NEUTROPHILS % (AUTO) 85 % (42-75); PLATELET COUNT 226 10^3/uL (130-400); RED CELL DISTRIBUTION WIDTH 16.2 % (10.0-14.5); WHITE BLOOD COUNT 7.8 10^3/uL (4.3-11.0)
[2019-06-27 03:53] LABS: BUN/CREATININE RATIO 12; CALCIUM 7.3 MG/DL (8.5-10.1); CARBON DIOXIDE 23 MMOL/L (21-32); CHLORIDE 108 MMOL/L (98-107); CREATININE SERUM 0.57 MG/DL (0.60-1.30); GFR ESTIMATED > 60; GLUCOSE 147 MG/DL (70-105); MAGNESIUM 1.3 MG/DL (1.6-2.4); PHOSPHORUS 2.3 MG/DL (2.3-4.7); POTASSIUM 3.5 MMOL/L (3.6-5.0); SODIUM 137 MMOL/L (135-145)
--- NOTE | 2019-06-27 04:50 | Pulmonary Progress Note ---
Subjective Time Seen by a Provider: 07:08 Subjective/Events-last exam Pt appears to be doing better. Sepsis Event Evaluation Height, Weight, BMI Height: 5'5.00" Weight: 200lbs. 0.0oz. [id number]; 29.00 BMI Method:Stated Focused Exam Lactate Level 06/24/19 09:46: Lactic Acid Level 2.41*H 06/24/19 12:50: Lactic Acid Level 3.04*H 06/25/19 03:05: Lactic Acid Level 0.91 Time of Focused Exam: 13:25 Exam Exam Vital Signs Date Time Temp Pulse Resp B/P (MAP) Pulse Ox O2 Delivery O2 Flow Rate FiO2 06/27/19 04:00 Room Air 06/27/19 04:00 89 10 153/90 (111) 100 Room Air 06/27/19 03:29 36.2 06/27/19 03:00 82 10 147/80 (102) 98 Room Air 06/27/19 02:00 84 12 132/70 (90) 96 Room Air 06/27/19 01:00 87 11 128/68 (88) 96 Room Air 06/27/19 00:00 36.0 06/27/19 00:00 105 14 155/86 (109) 95 Room Air 06/27/19 00:00 Room Air 06/26/19 23:00 104 8 97 Room Air 06/26/19 22:00 92 10 140/83 (102) 95 Room Air 06/26/19 21:00 111 12 183/91 (121) 96 Room Air 06/26/19 20:00 36.1 102 11 183/91 (121) 98 Room Air 06/26/19 20:00 Room Air 06/26/19 19:37 97 Room Air 06/26/19 19:01 101 06/26/19 19:00 101 14 98 Room Air 06/26/19 18:00 96 11 98 Room Air 06/26/19 17:00 105 13 142/103 (116) 98 Room Air 06/26/19 16:00 Room Air 06/26/19 16:00 96 11 146/88 (107) 96 Room Air 06/26/19 15:00 103 14 148/79 (102) 98 Room Air 06/26/19 14:00 111 15 149/93 (111) 97 Room Air 06/26/19 13:00 105 06/26/19 13:00 106 12 146/88 (107) 99 Room Air 06/26/19 12:00 117 16 152/92 (112) 96 Room Air 06/26/19 12:00 36.0 Room Air 06/26/19 12:00 Room Air 06/26/19 11:00 116 15 97 Room Air 06/26/19 10:34 Room Air 06/26/19 10:00 112 20 99 Room Air 06/26/19 09:00 104 11 148/88 (108) 99 Room Air 06/26/19 08:00 114 11 138/85 (102) 99 Room Air 06/26/19 08:00 Room Air 06/26/19 07:00 109 15 128/72 (90) 100 Room Air 06/26/19 07:00 109 06/26/19 07:00 36.2 Room Air 06/26/19 06:47 98 Room Air 06/26/19 06:00 92 10 112/64 (80) 98 Room Air 06/26/19 05:00 95 10 115/60 (78) Room Air I & O 06/27/19 07:00 Intake Total 1145 ml Output Total 2730 ml Balance -1585 ml Height & Weight Height: 5'5.00" Weight: 200lbs. 0.0oz. 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 Hypotension - improved -Pt is now off levophed decreased UO -- -Currently 22ml/hr -Continue LR 80cc/hr and TPN Hypomag, hypocalcemia -1 amp of Calcium gluconate -replace with 4grms of mgsulfate then repeat labs Anemia -Monitor NIDDM -SSI -Monitor REBEKA TOUSSAINT DO Jun 27, 2019 04:49
[2019-06-27] MEDS: POTASSIUM CL 10MEQ/50ML IVPB 50 ML IV SCH ×6 (05:27→09:19)
[2019-06-27] MEDS: MAGNESIUM 1 GM/100 ML IVPB 100 ML IV SCH ×5 (05:28→09:17)
[2019-06-27] MEDS: KCL 20 MEQ TAB (K-DUR) PO SCH (05:28)
[2019-06-27] MEDS: PIPERACILLIN/TAZOBACTAM (BULK) 4.5 GM in NS (IVPB) 100 ML IV SCH ×3 (05:35→21:50)
[2019-06-27] MEDS: VANCOMYCIN 1500 MG/NS 500 ML IVPB IV SCH ×4 (06:27→20:05)
--- NOTE | 2019-06-27 06:43 | Diagnostic Imaging Report ---
INDICATION: ICU management. TECHNIQUE: Single view chest 3:47 AM. CORRELATION STUDY: 06/25 and 06/24/2019 FINDINGS: Gastric tube is present past the left hemidiaphragm. There is presence of free air below the right diaphragm. Areas of atelectasis noted about both lung bases, adversely changed from prior study. Heart size and mediastinum are generally stable with vascular slightly increased. A right IJ central line tip over the low SVC remains present. Surgical clips present in the upper abdomen. IMPRESSION: 1. Developed a new area of atelectasis infiltrate and/or edema about both lung bases. 2. Vasculature is increased from prior study. 3. Presence of free air below the right diaphragm again demonstrated, relatively stable from previous study. Dictated by: Dictated on workstation # [id number]
[2019-06-27] MEDS: RT-ALBUTEROL SULF 2.5 MG/3 ML PRE-MIX VIAL INH SCH ×2 (06:45→19:20)
[2019-06-27] MEDS: LACTATED RINGERS 1,000 ML IV SCH ×2 (07:41→19:45)
[2019-06-27] MEDS: FLUCONAZOLE 200 MG/100 ML 100 ML IV SCH (09:17)
[2019-06-27] MEDS: PHARMACY TO DOSE IV SCH (09:18)
--- NOTE | 2019-06-27 10:18 | Physical Therapy Daily Note ---
PT Daily Note-Current Subjective Patient in bed pre tx, agrees to PT, has 8/10 pain in abdomen. Appearance Patient in recliner post tx with nurse call, phone, tray, all needs met. NG tube not hooked back up due to short line, nurse notified. Mental Status Patient Orientation: Person, Place, Situation Attachments: NG Tube, Drains, Nash Catheter, IV Transfers SCALE: Activities may be completed with or without assistive devices. 1-Lpvxfxdrbi-vuphyhw completes the activity by him/herself with no assistance from a helper. 5-Set-up or Clean-up Assistance-helper sets up or cleans up; patient completes activity. [place] assists only prior to or following the activity. 4-Supervision or Touching Assistance-helper provides verbal cues and/or tenisha juan/steadying and/or contact guard assistance as patient completes activity. Assistance may be provided throughout the activity or intermittently. 3-Partial/Moderate Assistance-helper does LESS THAN HALF the effort. [place] lifts, holds or supports trunk or limbs, but provides less than half the effort. 2-Substantial/Maximal Assistance-helper does MORE THAN HALF the effort. [place] lifts or holds trunk or limbs and provides more than half the effort. 1-Syfufpxym-iwcdqs does ALL the effort. Patient does none of the effort to complete the activity. Or, the assistance of 2 or more helpers is required for the patient to complete the activity. If activity was not attempted, code reason: 7-Patient Refused. 9-Not Applicable-not attempted and the patient did not perform the activity before the current illness, exacerbation or injury. 10-Not Attempted due to Environmental Limitations-(lack of equipment, weather restraints, etc.). 88-Not Attempted due to Medical Conditions or Safety Concerns. Transfers (B, C, W/C): 3 Roll Left to Right (QC): 3 Sit to Lying (QC): 3 Sit to Stand (QC): 4 Chair/Pdv-iw-Bwgyf Xfer(QC): 4 bed mobility and supine to sit min/mod assist, sit to stand and transfers SBA, extra time needed due to pain Weight Bearing Right Lower Extremity: Right Full Weight Bearing Left Lower Extremity: Left Full Weight Bearing Gait Training Distance: 25' Walk 10 feet (QC): 4 Gait Persons Needed: 1 Gait Assistive Device: FWW SBA, slow but steady Exercises Seated Therapy Exercises: Ankle pumps, Long arc quads Seated Reps: 15 Treatments LE exercise, bed mobility and transfers, ambulation Assessment Current Status: Fair Progress very cautious movement due to pain PT Halfway Goals Powder Worker Goals PT Powder Worker Goals Time Frame: Jul 15, 2019 Sit to Lying (QC): 6 Lying-Sitting on Side/Bed(QC): 6 Sit to Stand (QC): 6 Roll Left to Right (QC): 6 Chair/Odv-jg-Qhiwe Xfer(QC): 6 Car Transfer (QC): 6 Does the Patient Walk: Yes Distance: 250' Walk 10 feet (QC): 6 Walk 10ft-Uneven Surface(QC): 6 Walk 50ft with 2 Turns (QC): 6 Walk 150 ft (QC): 6 Gait Assistive Device: None, FWW # of Steps: 4 1 Step (curb) (QC): 6 4 Steps (QC): 6 12 Steps (QC): 9 Stairs Level Of Assist: 6 Picking up an Object (QC): 6 PT Plan Problem List Problem List: Activity Tolerance, Functional Strength, Safety, Balance, Gait, Transfer, Bed Mobility, ROM Treatment/Plan Treatment Plan: Continue Plan of Care Treatment Plan: Bed Mobility, Education, Functional Activity Carmina, Functional Strength, Gait, Safety, Therapeutic Exercise, Transfers Treatment Duration: Jul 15, 2019 Frequency: 6 times per week Estimated Hrs Per Day: .25 hour per day Patient and/or Family Agrees t: Yes Safety Risks/Education Patient Education: Gait Training, Transfer Techniques, Correct Positioning, Safety Issues Teaching Recipient: Patient Teaching Methods: Demonstration, Discussion Response to Teaching: Reinforcement Needed Time/GCodes Time In: 0945 Time Out: 1011 Total Billed Treatment Time: 26 Total Billed Treatment 1 visit FA 26' SAHIL TOVAR PT Jun 27, 2019 10:18
--- NOTE | 2019-06-27 10:49 | Occupational Ther Daily Note ---
OT Current Status-Daily Note Subjective Pt alert, sitting in recliner. Pt states, "I don't have to stand back up, do I?" Pt agrees to therapy. Pt c/o stiffness and pain, did not rate. Mental Status/Objective Patient Orientation: Person, Place, Time, Situation Attachments: Nash Catheter, IV, NG Tube, Telemetry ADL-Treatment Pt requested to wash face only, did not want to complete any other part of sponge bath. Pt took increased time to complete task due to stiffness of UE's and pain. Therapy Code Descriptions/Definitions Functional [place] Measure: 0=Not Assessed/NA 4=Minimal Assistance 1=Total Assistance 5=Supervision or Setup 2=Maximal Assistance 6=Modified [place] 3=Moderate Assistance 7=Complete IndependenceSCALE: Activities may be completed with or without assistive devices. 4-Xcbhepbomp-zrwqhnb completes the activity by him/herself with no assistance from a helper. 5-Set-up or Clean-up Assistance-helper sets up or cleans up; patient completes activity. [place] assists only prior to or following the activity. 4-Supervision or Touching Assistance-helper provides verbal cues and/or touching/steadying and/or contact guard assistance as patient completes acti vity. Assistance may be provided throughout the activity or intermittently. 3-Partial/Moderate Assistance-helper does LESS THAN HALF the effort. [place] lifts, holds or supports trunk or limbs, but provides less than half the effort. 2-Substantial/Maximal Assistance-helper does MORE THAN HALF the effort. [place] lifts or holds trunk or limbs and provides more than half the effort. 0-Kbaqtvxbh-tduoou does ALL the effort. Patient does none of the effort to complete the activity. Or, the assistance of 2 or more helpers is required for the patient to complete the activity. If activity was not attempted, code reason: 7-Patient Refused. 9-Not Applicable-not attempted and the patient did not perform the activity before the current illness, exacerbation or injury. 10-Not Attempted due to Environmental Limitations-(lack of equipment, weather restraints, etc.). 88-Not Attempted due to Medical Conditions or Safety Concerns. Other Treatment Pt given 5 UE exercises without resistance to complete to increase strength and AROM. Skilled instruction needed for correct position and technique. Pt able to complete 5 of each exercise, using one UE at a time due to decrease strength and activity tolerance. Handout left in room of exercises. After therapy, pt sitting in recliner with call light in reach. All needs met in room. OT Short Term Goals Short Term Goals Time Frame: Jul 03, 2019 Eating(FIM): 5 Grooming(FIM): 5 Bathing(FIM): 3 Upper Body Dressing(FIM): 4 Lower Body Dressing(FIM): 3 Toileting(FIM): 3 Transfers (B,C,W/C) (FIM): 4 Toilet/Commode Transfer(FIM): 4 Additional Short Term Goals: 1-Demonstrate ADL Tasks, 2-Verbalize U nderstanding, 3-ImproveStrength/Carmina 1=Demonstrate adherence to instructed precautions during ADL tasks. 2=Patient will verbalize/demonstrate understanding of assistive devices/modifications for ADL. 3=Patient will improve strength/tolerance for activity to enable patient to perform ADL's. OT Barrel Polisher Inside Goals Long-Term Goals Time Frame: Jul 10, 2019 Eating (QC): 6 Oral Hygiene (QC): 6 Shower/Bathe Self (QC): 5 Upper Body Dressing (QC): 5 Lower Body Dressing (QC): 5 On/Off Footwear (QC): 5 Toileting Hygiene (QC): 6 Toilet/Commode Transfer (QC): 6 Additional Goals: 1-Demonstrate ADL Tasks, 2-Verbalize Understanding, 3- ImproveStrength/Carmina 1=Demonstrate adherence to instructed precautions during ADL tasks. 2=Patient will verbalize/demonstrate understanding of assistive de vices/modifications for ADL. 3=Patient will improve strength/tolerance for activity to enable patient to perform ADL's. OT Education/Plan Problem List/Assessment Assessment: Decreased Activ Tolerance, Decreased UE Strength, Impaired Self- Care Skills Discharge Recommendations Plan/Recommendations: Continue POC Treatment Plan/Plan of Care Patient would benefit from OT for education, treatment and training to promote independence in ADL's, mobility, safety and/or upper extremity function for ADL's. Plan of Care: ADL Retraining, Functional Mobility, UE Funct Exercise/Act Treatment Duration: Jul 10, 2019 Frequency: 5 times per week Estimated Hrs Per Day: .5 hour per day Agreement: Yes Rehab Potential: Good Time/GCodes Start Time: 10:30 Stop Time: 10:45 Total Time Billed (hr/min): 15 Billed Treatment Time 1 visit-FA 1 (15 min) ERNESTO DANGELO Jun 27, 2019 10:49
--- NOTE | 2019-06-27 12:11 | Progress Note - Hospitalist ---
ALEXA SOLIS MED STUDENT 06/27/19 1211: Subjective HPI/CC On Admission Date Seen by Provider: Jun 27, 2019 Time Seen by Provider: 08:05 Chief complaint: Perforated intestine History of present illness: This is a 49-year-old white female clinic patient of [facility] with a past medical history of gastric bypass and multiple abdominal surgeries who presented to the hospital via paramedics due to severe abdominal pain nausea and vomiting. CT scan obtained showing free air suggesting perforation. Dr. Taylor was consulted to place central line urgently due to septic shock status requiring aggressive IV fluid resuscitation and pressor therapy. She is placed on broad-spectrum antibiotics with Diflucan Zosyn and vancomycin. Patient was urgently taken to surgery and she was well aware of this plan and agreed with the management. Subjective/Events-last exam Since I last saw Ms. Pena, she reports feeling some improvement in her strength, but no improvement in her abdominal pain. She has continued to see PT/OT, who report she needs extra time and assistance with activities due to her pain. Her labs showed RBC 2.97, Hgb 8.1, and Hct 25. Each has gone down every day since the . Her labs also showed blood glucose was 147 3:20 am, glucometer showed 230 at 11:36 am. Her only complaint besides abdominal pain today was that she felt as if she could be incontinent, and as if the catheter was full. She has not felt this way since the catheter was placed. Nursing was asked to check the catheter. Review of Systems General: No Chills HEENT: No Sinus Congestion Pulmonary: No Dyspnea, No Cough Cardiovascular: No: Chest Pain, Edema Gastrointestinal: Abdominal Pain Genitourinary: Other Neurological: No: Numbness Rush as if she was going to be incontinent, catheter felt full Focused Exam Lactate Level 06/24/19 12:50: Lactic Acid Level 3.04*H 06/25/19 03:05: Lactic Acid Level 0.91 Time of Focused Exam: 13:25 Objective Exam Vital Signs Vital Signs Date Time Temp Pulse Resp B/P (MAP) Pulse Ox O2 Delivery O2 Flow Rate FiO2 06/27/19 11:27 37.0 06/27/19 10:17 107 95 21 06/27/19 08:00 Room Air 06/27/19 06:00 10 152/88 (109) 10/5/19 18:15 3 Capillary Refill : Less Than 3 SecondsLess Than 3 Seconds General Appearance: Anxious, Mild Distress Respiratory: Lungs Clear, Normal Breath Sounds, No Accessory Muscle Use, No Respiratory Distress Cardiovascular: Regular Rate, Rhythm, No Edema, No Murmur, Normal Peripheral Pulses Extremity: Normal Inspection, Non Tender, No Pedal Edema Neurologic/Psychiatric: Alert, Oriented x3, Normal Mood/Affect Results/Procedures Lab Laboratory Tests 06/27/19 03:20 Patient resulted labs reviewed. Assessment/Plan Assessment and Plan Assess & Plan/Chief Complaint Assessment: Acute abdominal pain with perforation on CT scan with free air s/p repair Dr Taylor POD # 1 Septic shock anemia h/o multiple abdominal surgeries Post op ileus NGT maintained Plan: monitor anemia Continue PT/OT Continue medications for sepsis TPN since NPO 5 days Pain control Clinical Quality Measures DVT/VTE Risk/Contraindication: Risk Factor Score Per Nursin RFS Level Per Nursing on Admit: 3=High KARYN TURNER DO 06/27/192030: Subjective Subjective/Events-last exam Abdominal pain continues. Inpatient rehab evaluation. TPN maintained. Catheter is causing discomfort, will try to flush that and resolve that issue. Transferring to fourth floor. Has responded to aggressive treatment very well. Review of Systems Gastrointestinal: Abdominal Pain Objective Exam General Appearance: No Apparent Distress, WD/WN, Chronically ill, Obese Respiratory: Lungs Clear Cardiovascular: Regular Rate, Rhythm Neurologic/Psychiatric: Alert, Oriented x3, No Motor/Sensory Deficits, Normal Mood/Affect Assessment/Plan Assessment and Plan Assess & Plan/Chief Complaint Septic shock Perforated gastric ulcer Post op ileus Plan: TPN Move to 4th floor Diagnosis/Problems Diagnosis/Problems (1) Septic shock Status: Acute (2) Nausea and vomiting Status: Acute Qualifiers: Qualified Codes: R11.2 - Nausea with vomiting, unspecified (3) Gastrointestinal perforation Status: Acute Supervisory-Addendum Brief Verification & Attestation Participated in pt care: history, MDM, physical Personally performed: exam, history, MDM, supervision of care Care discussed with: Medical Student Procedures: n/a Results interpretation: Verified all documentation Verification and Attestation of Medical Student E/M Service A medical student performed and documented this service in my presence. I reviewed and verified all information documented by the medical student and made modifications to such information, when appropriate. I personally performed the physical exam and medical decision making. Karyn Turner, Jun 27, 2019,20:31 ALEXA SOLIS MED STUDENT Jun 27, 2019 12:11 KARYN TRUNER DO Jun 27, 2019 20:31
--- NOTE | 2019-06-27 15:54 | NUR ---
Initial visit: Pt is [employer] with no current connections to a mimi community. 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 Juan Manuel form Physical Therapy visiting, and began making preparations for the pt to take a walk in the hallway with him. I engaged with the pt while he did so, and offered our chaplains to be of further support.
[2019-06-27] MEDS ORDERED: [UNRECOGNIZED DRUG - OTHER] IV SCH ×9 (17:00)
[2019-06-27] MEDS ORDERED: POTASSIUM CHLORIDE IV SCH ×9 (17:00)
[2019-06-27] MEDS ORDERED: SODIUM ACETATE IV SCH ×9 (17:00)
[2019-06-27] MEDS ORDERED: SODIUM PHOSPHATE IV SCH ×9 (17:00)
--- NOTE | 2019-06-27 18:12 | NUR ---
report from [facility]
--- NOTE | 2019-06-27 18:55 | NUR ---
Transferred to Med Surg Room 426 at 1855
[2019-06-27] MEDS: PANTOPRAZOLE INJECTION 200 MG in NS (IVPB) 100 ML IV SCH (19:51)
--- NOTE | 2019-06-27 20:15 | Progress Note - Surgery ---
[facility] 06/27/19 2015: Subjective Date Seen by a Provider: Jun 27, 2019 Time Seen by a Provider: 07:40 Subjective/Events-last exam Patient is doing better but is uncomfortable. Slept well last night, but has been unable to have a productive cough due to pain. Reports pain at the incision but does not have fever or chills. No erythema noticed at incision. Bulbs are continuing to drain fluid. Urine Output has increased to 1.14 ml/kg/hr. Review of Systems General: No Chills, No Other (Fevers) Pulmonary: No Dyspnea; Cough Cardiovascular: No: Chest Pain Gastrointestinal: Abdominal Pain; No: Nausea, Vomiting Focused Exam Lactate Level 06/25/19 03:05: Lactic Acid Level 0.91 Time of Focused Exam: 13:25 Objective Exam Vital Signs Date Time Temp Pulse Resp B/P (MAP) Pulse Ox O2 Delivery O2 Flow Rate FiO2 06/27/19 19:21 96 Room Air 06/27/19 18:00 98 28 97 Room Air 06/27/19 17:00 90 11 98 Room Air 06/27/19 16:00 97 17 98 Room Air 06/27/19 16:00 Room Air 06/27/19 15:42 36.5 06/27/19 15:41 36.5 06/27/19 15:00 100 15 99 Room Air 06/27/19 14:00 105 15 166/92 (116) 99 Room Air 06/27/19 13:00 86 06/27/19 13:00 89 12 99 Room Air 06/27/19 12:00 89 15 98 Room Air 06/27/19 12:00 Room Air 06/27/19 11:27 37.0 06/27/19 11:00 96 14 96 Room Air 06/27/19 10:17 36.0 107 95 21 06/27/19 09:00 90 13 165/86 (112) 97 Room Air 06/27/19 08:00 94 6 169/99 (122) 96 Room Air 06/27/19 08:00 Room Air 06/27/19 08:00 36.4 06/27/19 07:00 81 06/27/19 07:00 87 11 161/85 (110) 98 Room Air 06/27/19 06:43 96 Room Air 06/27/19 06:00 81 10 152/88 (109) 96 Room Air 06/27/19 05:00 81 11 150/82 (104) 97 Room Air 06/27/19 04:00 Room Air 06/27/19 04:00 89 10 153/90 (111) 100 Room Air 06/27/19 03:29 36.2 06/27/19 03:00 82 10 147/80 (102) 98 Room Air 06/27/19 02:00 84 12 132/70 (90) 96 Room Air 06/27/19 01:02 90 06/27/19 01:00 87 11 128/68 (88) 96 Room Air 06/27/19 00:00 36.0 06/27/19 00:00 105 14 155/86 (109) 95 Room Air 06/27/19 00:00 Room Air 06/26/19 23:00 104 8 97 Room Air 06/26/19 22:00 92 10 140/83 (102) 95 Room Air 06/26/19 21:00 111 12 183/91 (121) 96 Room Air I & O 06/27/19 07:00 Intake Total 1295 ml Output Total 3530 ml Balance -2235 ml Capillary Refill : Less Than 3 SecondsLess Than 3 Seconds General Appearance: No Apparent Distress, Other (Uncomfortable) HEENT: PERRL/EOMI, Normal ENT Inspection, Other (Nasogastric tube) Neck: Normal Inspection Respiratory: Lungs Clear, Normal Breath Sounds, No Accessory Muscle Use, No Respiratory Distress Cardiovascular: Regular Rate, Rhythm, No Edema, No Murmur Gastrointestinal: tenderness (incisional, trae drains with cloudy serous fluid) Extremity: Normal Inspection, Non Tender, No Pedal Edema Neurologic/Psychiatric: Alert, Oriented x3, Normal Mood/Affect Skin: Normal Color, Warm/Dry Lymphatic: No Adenopathy Results Lab Laboratory Tests 06/27/19 03:20: White Blood Count 7.8, Red Blood Count 2.97L, Hemoglobin 8.1L, Hematocrit 25L, Mean Corpuscular Volume 86, Mean Corpuscular Hemoglobin 27, Mean Corpuscular Hemoglobin Concent 32, Red Cell Distribution Width 16.2H, Platelet Count 226, Mean Platelet Volume 8.7, Neutrophils (%) (Auto) 85H, Lymphocytes (%) (Auto) 10L , Monocytes (%) (Auto) 4, Eosinophils (%) (Auto) 2, Basophils (%) (Auto) 0, Neutrophils # (Auto) 6.6, Lymphocytes # (Auto) 0.8L, Monocytes # (Auto) 0.3, Eosinophils # (Auto) 0.1, Basophils # (Auto) 0.0, Sodium Level 137, Potassium Level 3.5L, Chloride Level 108H, Carbon Dioxide Level 23, Anion Gap 6, Blood Urea Nitrogen 7, Creatinine 0.57L, Estimat Glomerular Filtration Rate > 60, BUN/Creatinine Ratio 12, Glucose Level 147H, Calcium Level 7.3L, Phosphorus Level 2.3, Magnesium Level 1.3L 06/27/19 11:36: Glucometer 230H 06/27/19 17:49: Glucometer 160H Microbiology 06/24/19 Blood Culture - Preliminary, Resulted No growth 06/24/19 Gram Stain - Final, Resulted 06/24/19 Anaerobic Culture - Preliminary, Resulted No anaerobes isolated 06/24/19 Body Fluid Culture - Final, Resulted YEAST Rothia mucilaginosa Streptococcus parasanguinis No Susceptibility Performed 06/24/19 MRSA Screen - Final, Complete MRSA not isolated Assessment/Plan Assessment/Plan Assessment/Plan s/p sudhir patch for perforated gastric pouch NPO Do not remove ng or advance, keep to LIWS SCD for dvt prophylaxis scott for accurate i/o Improved urine output Possibly Remove scott in the morning Clinical Quality Measures DVT/VTE Risk/Contraindication: Risk Factor Score Per Nursin RFS Level Per Nursing on Admit: 3=High ROBYN TAYLOR DO 06/27/193: Subjective Subjective/Events-last exam Still with pain but improving. Thirsty. Denies n/v fever sweats chills shortness of breath or chest pain. Npo. Objective Exam General Appearance: No Apparent Distress HEENT: PERRL/EOMI, Normal ENT Inspection Neck: Normal Inspection Respiratory: Chest Non Tender, No Accessory Muscle Use, No Respiratory Distress Cardiovascular: Regular Rate, Rhythm Gastrointestinal: tenderness (incisional, trae drains with more serous fluid) Extremity: Normal Inspection Neurologic/Psychiatric: Oriented x3, Normal Mood/Affect Skin: Normal Color, Warm/Dry Lymphatic: No Adenopathy Assessment/Plan Assessment/Plan Assessment/Plan s/ sudhir patch for perforate gastric pouch npo tpn ng tube do not advance or remove scott for accurat i/0 remove in am Supervisory-Addendum Brief Verification & Attestation Participated in pt care: history, MDM, physical Personally performed: exam, history, MDM, supervision of care Care discussed with: Medical Student Procedures: n/a Results interpretation: Verified all documentation Verification and Attestation of Medical Student E/M Service A medical student performed and documented this service in my presence. I reviewed and verified all information documented by the medical student and made modifications to such information, when appropriate. I personally performed the physical exam and medical decision making. Robyn Taylor, Jun 27, 2019,21:33 [facility] Jun 27, 2019 20:15 ROBYN TAYLOR DO Jun 27, 2019 21:33
[2019-06-28] MEDS: inSUlin ASPART (NovoLOG) 1 UNIT/0.01 ML (CHARGE PER UNIT) SC SCH ×4 (00:04→18:28)
[2019-06-28 00:34] VITALS: BP 158/93
[2019-06-28 04:15] VITALS: BP 152/86
[2019-06-28] MEDS: PIPERACILLIN/TAZOBACTAM (BULK) 4.5 GM in NS (IVPB) 100 ML IV SCH ×3 (04:50→20:10)
[2019-06-28 06:16] LABS: BASOPHILS % (AUTO) 0 % (0-10); EOSINOPHILS # (AUTO) 0.1 10^3/uL (0.0-0.3); EOSINOPHILS % (AUTO) 1 % (0-10); HEMATOCRIT 27 % (35-52); LYMPHOCYTES # (AUTO) 0.5 X 10^3 (1.0-4.0); LYMPHOCYTES % (AUTO) 8 % (12-44); MEAN CORPUSCULAR HEMOGLOBIN 28 PG (25-34); MEAN CORPUSCULAR HGB CONC 33 G/DL (32-36); MEAN CORPUSCULAR VOLUME 84 FL (80-99); MEAN PLATELET VOLUME 9.3 FL (7.4-10.4); MONOCYTES # (AUTO) 0.4 X 10^3 (0.0-1.0); MONOCYTES % (AUTO) 6 % (0-12); NEUTROPHILS # (AUTO) 5.3 X 10^3 (1.8-7.8); NEUTROPHILS % (AUTO) 84 % (42-75); PLATELET COUNT 179 10^3/uL (130-400); RED CELL DISTRIBUTION WIDTH 15.6 % (10.0-14.5); WHITE BLOOD COUNT 6.3 10^3/uL (4.3-11.0)
[2019-06-28 06:34] LABS: BUN/CREATININE RATIO 16; CALCIUM 7.3 MG/DL (8.5-10.1); CARBON DIOXIDE 20 MMOL/L (21-32); CHLORIDE 107 MMOL/L (98-107); CREATININE SERUM 0.57 MG/DL (0.60-1.30); GFR ESTIMATED > 60; GLUCOSE 214 MG/DL (70-105); MAGNESIUM 1.4 MG/DL (1.6-2.4); PHOSPHORUS 2.8 MG/DL (2.3-4.7); POTASSIUM 4.9 MMOL/L (3.6-5.0); SODIUM 132 MMOL/L (135-145)
[2019-06-28] MEDS: KCL 20 MEQ TAB (K-DUR) PO SCH (06:44)
[2019-06-28] MEDS: POTASSIUM CL 10MEQ/50ML IVPB 50 ML IV SCH (06:44)
--- NOTE | 2019-06-28 06:52 | Pulmonary Progress Note ---
Subjective Time Seen by a Provider: 06:51 Subjective/Events-last exam Pt is improving Sepsis Event Evaluation Height, Weight, BMI Height: 5'5.00" Weight: 200lbs. 0.0oz. 90.726128qi; 29.00 BMI Method:Stated Focused Exam Time of Focused Exam: 13:25 Exam Exam Vital Signs Date Time Temp Pulse Resp B/P (MAP) Pulse Ox O2 Delivery O2 Flow Rate FiO2 06/28/19 04:15 36.0 98 18 152/86 (108) 96 Room Air 06/28/19 00:34 35.4 104 20 158/93 (114) 96 Room Air 06/27/19 20:10 36.6 106 20 164/70 (101) 98 Room Air 06/27/19 20:00 Room Air 06/27/19 19:21 96 Room Air 06/27/19 18:47 37.3 104 20 160/81 (107) 94 Room Air 06/27/19 18:00 98 28 97 Room Air 06/27/19 17:00 90 11 98 Room Air 06/27/19 16:00 97 17 98 Room Air 06/27/19 16:00 Room Air 06/27/19 15:42 36.5 06/27/19 15:41 36.5 06/27/19 15:00 100 15 99 Room Air 06/27/19 14:00 105 15 166/92 (116) 99 Room Air 06/27/19 13:00 86 06/27/19 13:00 89 12 99 Room Air 06/27/19 12:00 89 15 98 Room Air 06/27/19 12:00 Room Air 06/27/19 11:27 37.0 06/27/19 11:00 96 14 96 Room Air 06/27/19 10:17 36.0 107 95 21 06/27/19 09:00 90 13 165/86 (112) 97 Room Air 06/27/19 08:00 94 6 169/99 (122) 96 Room Air 06/27/19 08:00 Room Air 06/27/19 08:00 36.4 06/27/19 07:00 81 06/27/19 07:00 87 11 161/85 (110) 98 Room Air I & O 06/28/19 07:00 Intake Total 1720 ml Output Total 4205 ml Balance -2485 ml Height & Weight Height: 5'5.00" Weight: 200lbs. 0.0oz. 90.479264wc; 29.00 BMI Method:Stated General Appearance: No Apparent Distress HEENT: PERRL/EOMI, Normal ENT Inspection Neck: Normal Inspection Respiratory: Chest Non Tender, No Accessory Muscle Use, No Respiratory Distress Cardiovascular: Regular Rate, Rhythm Capillary Refill: Less Than 3 Seconds Gastrointestinal: tenderness (incisional, trae drains with more serous fluid) Extremity: Normal Inspection Neurologic/Psychiatric: Oriented x3, Normal Mood/Affect Skin: Normal Color, Warm/Dry Lymphatic: No Adenopathy Results Lab Laboratory Tests 06/27/19 03:20 06/28/19 06:07 Assessment/Plan Assessment/Plan Acute gastric perf s/p open surgery/hx of gastric bypass -TRAE drain x2 - output 330 total -UO 1050 -Currently on Protonix gtt Atelectasis -IS -Increase activity Severe sepsis- improving -Zosyn, , Diflucan . D/C Vanco -Cheema cultures -Abdominal fluid cultures is showing yeast and gram + ramon thus far. Hypotension - improved -Pt is now off levophed decreased UO -- -Currently 22ml/hr Hypomag, hypocalcemia -1 amp of Calcium gluconate -replace with 4grms of mgsulfate then repeat labs Anemia -Monitor NIDDM -SSI -Monitor REBEKA TOUSSAINT DO Jun 28, 2019 06:52
[2019-06-28 08:00] VITALS: BP 138/85
[2019-06-28] MEDS: RT-ALBUTEROL SULF 2.5 MG/3 ML PRE-MIX VIAL INH SCH ×3 (08:08→19:58)
[2019-06-28] MEDS: morphine PCA 100 MG/100 ML BAG IV PRN (09:11)
--- NOTE | 2019-06-28 09:17 | NUR ---
Morphine sulfate 15 ml ( 1mg/1ml ratio) wasted with CECILIA Arita. This RN will cont to monitor this patient throughout the remainder of this shift.
[2019-06-28] MEDS: MAGNESIUM 1 GM/100 ML IVPB 100 ML IV SCH ×2 (09:51→09:53)
[2019-06-28] MEDS: FLUCONAZOLE 200 MG/100 ML 100 ML IV SCH (09:52)
[2019-06-28] MEDS ORDERED: MAGNESIUM 1 GM/100 ML IVPB 100 ML IV SCH (10:15)
--- NOTE | 2019-06-28 11:31 | Occupational Ther Daily Note ---
OT Current Status-Daily Note Subjective Pt agrees to therapy, reports 8/10 abdominal pain ADL-Treatment Pt transferred to chair with nurse aide when therapist arrives. Pt able to scoot back and reposition in chair with increased time secondary to pain. Pt completed grooming tasks while seated in chair. Pt washed face and combed hair with SBA. Pt states she has been completing UE AROM exercises that were introduced in previous treatment session, but declined to complete at this time secondary to fatigue and pain. Pt declined further activity, requests to rest at this time. Pt sitting in chair with needs met after session. Therapy Code Descriptions/Definitions Functional Alexis Measure: 0=Not Assessed/NA 4=Minimal Assistance 1=Total Assistance 5=Supervision or Setup 2=Maximal Assistance 6=Modified Alexis 3=Moderate Assistance 7=Complete IndependenceSCALE: Activities may be completed with or without assistive devices. 8-Iveqzyxodk-dyejypq completes the activity by him/herself with no assistance from a helper. 5-Set-up or Clean-up Assistance-helper sets up or cleans up; patient completes activity. [place] assists only prior to or following the activity. 4-Supervision or Touching Assistance-helper provides verbal cues and/or touching/steadying and/or contact guard assistance as patient completes activity. Assistance may be provided throughout the activity or intermittently. 3-Partial/Moderate Assistance-helper does LESS THAN HALF the effort. [place] lifts, holds or supports trunk or limbs, but provides less than half the effort. 2-Substantial/Maximal Assistance-helper does MORE THAN HALF the effort. [place] lifts or holds trunk or limbs and provides more than half the effort. 6-Deakfqily-itydip does ALL the effort. Patient does none of the effort to complete the activity. Or, the assistance of 2 or more helpers is required for the patient to complete the activity. If activity was not attempted, code reason: 7-Patient Refused. 9-Not Applicable-not attempted and the patient did not perform the activity before the current illness, exacerbation or injury. 10-Not Attempted due to Environmental Limitations-(lack of equipment, weather restraints, etc.). 88-Not Attempted due to Medical Conditions or Safety Concerns. OT Short Term Goals Short Term Goals Time Frame: Jul 03, 2019 Eating(FIM): 5 Grooming(FIM): 5 Bathing(FIM): 3 Upper Body Dressing(FIM): 4 Lower Body Dressing(FIM): 3 Toileting(FIM): 3 Transfers (B,C,W/C) (FIM): 4 Toilet/Commode Transfer(FIM): 4 Additional Short Term Goals: 1-Demonstrate ADL Tasks, 2-Verbalize Understanding, 3-ImproveStrength/Carmina 1=Demonstrate adherence to instructed precautions during ADL tasks. 2=Patient will verbalize/demonstrate understanding of assistive devices/modifications for ADL. 3=Patient will improve strength/tolerance for activity to enable patient to perform ADL's. OT Well Cleaner Goals Well Cleaner Goals Time Frame: Jul 10, 2019 Eating (QC): 6 Oral Hygiene (QC): 6 Shower/Bathe Self (QC): 5 Upper Body Dressing (QC): 5 Lower Body Dressing (QC): 5 On/Off Footwear (QC): 5 Toileting Hygiene (QC): 6 Toilet/Commode Transfer (QC): 6 Additional Goals: 1-Demonstrate ADL Tasks, 2-Verbalize Understanding, 3- ImproveStrength/Carmina 1=Demonstrate adherence to instructed precautions during ADL tasks. 2=Patient will verbalize/demonstrate understanding of assistive devices/modifications for ADL. 3=Patient will improve strength/tolerance for activity to enable patient to perform ADL's. OT Education/Plan Discharge Recommendations Plan/Recommendations: Continue POC Treatment Plan/Plan of Care Patient would benefit from OT for education, treatment and training to promote independence in ADL's, mobility, safety and/or upper extremity function for ADL's. Plan of Care: ADL Retraining, Functional Mobility, UE Funct Exercise/Act Treatment Duration: Jul 10, 2019 Frequency: 5 times per week Estimated Hrs Per Day: .5 hour per day Agreement: Yes Rehab Potential: Good Time/GCodes Start Time: 11:14 Stop Time: 11:27 Total Time Billed (hr/min): 13 Billed Treatment Time 1 visit, ADL(13minutes) KAYLA AUGUSTINE OT Jun 28, 2019 11:31
[2019-06-28 12:00] VITALS: BP 160/84
--- NOTE | 2019-06-28 13:06 | Progress Note - Hospitalist ---
ALEXA SOLIS MED STUDENT 06/28/19 1306: Subjective HPI/CC On Admission Date Seen by Provider: Jun 28, 2019 Time Seen by Provider: 08:30 Chief complaint: Perforated intestine History of present illness: This is a 49-year-old white female clinic patient of [facility] with a past medical history of gastric bypass and multiple abdominal surgeries who presented to the hospital via paramedics due to severe abdominal pain nausea and vomiting. CT scan obtained showing free air suggesting perforation. Dr. Taylor was consulted to place central line urgently due to septic shock status requiring aggressive IV fluid resuscitation and pressor therapy. She is placed on broad-spectrum antibiotics with Diflucan Zosyn and vancomycin. Patient was urgently taken to surgery and she was well aware of this plan and agreed with the management. Subjective/Events-last exam Since I last saw Ms. Pena, [facility] and has had her scott catheter taken out. She has remained mildly tachycardic at 98 and hypertensive. Her anemia has improved, and her labs show decreased magnesium, sodium, calcium, CO2, and creatinine. Her glucose remains elevated. Her CXR showed new atelectasis and/or pulmonary edema. When I visited her today she had no new complaints, she reported that she has continued to see improvements in her strength, but overall is still fatigued, and still has abdominal pain after her surgery. She denied having any SOB. She has continued to see OT, who reports she has some limitations due to pain, and declined participation in some therapy exercises today due to fatigue. Review of Systems General: No Chills; Fatigue HEENT: No Head Aches, No Sinus Congestion Pulmonary: No Dyspnea, No Cough Cardiovascular: No: Chest Pain, Edema Gastrointestinal: Abdominal Pain; No: Nausea, Vomiting Neurological: No: Numbness Focused Exam Time of Focused Exam: 13:25 Objective Exam Vital Signs Vital Signs Date Time Temp Pulse Resp B/P (MAP) Pulse Ox O2 Delivery O2 Flow Rate FiO2 06/28/19 12:00 36.0 91 18 160/84 (109) 99 Room Air 06/27/19 10:17 21 06/24/19 18:15 3 Capillary Refill : Less Than 3 SecondsLess Than 3 Seconds General Appearance: No Apparent Distress, Anxious Respiratory: Lungs Clear, Normal Breath Sounds Cardiovascular: Regular Rate, Rhythm, No Edema, No Murmur, Normal Peripheral Pulses Extremity: Normal Inspection, No Calf Tenderness, No Pedal Edema Neurologic/Psychiatric: Alert, Oriented x3, Normal Mood/Affect Results/Procedures Lab Laboratory Tests 06/28/19 06:07 Patient resulted labs reviewed. Assessment/Plan Assessment and Plan Assess & Plan/Chief Complaint Assessment: Acute abdominal pain with perforation on CT scan with free air s/p repair Dr Taylor POD # 1 Septic shock anemia abnormal CXR h/o multiple abdominal surgeries Post op ileus NGT maintained Plan: monitor anemia monitor pulmonary function due to latest CXR findings Continue PT/OT Continue medications for sepsis TPN since NPO Pain control Clinical Quality Measures DVT/VTE Risk/Contraindication: Risk Factor Score Per Nursin RFS Level Per Nursing on Admit: 3=High KARYN TURNER DO 06/28/199: Subjective Subjective/Events-last exam Out of bed with PT and OT will be initiated today Pain well controlled NPO maintained TPN maintained without difficulties Will follow liver enzymes to evaluate for any cholestasis Objective Exam General Appearance: No Apparent Distress, WD/WN, Chronically ill Respiratory: Lungs Clear Cardiovascular: Regular Rate, Rhythm Assessment/Plan Assessment and Plan Assess & Plan/Chief Complaint NPO TPN Diagnosis/Problems Diagnosis/Problems (1) Gastrointestinal perforation Status: Acute (2) Septic shock Status: Acute (3) Nausea and vomiting Status: Acute Qualifiers: Qualified Codes: R11.2 - Nausea with vomiting, unspecified Supervisory-Addendum Brief Verification & Attestation Participated in pt care: history, MDM, physical Personally performed: exam, history, MDM, supervision of care Care discussed with: Medical Student Procedures: n/a Results interpretation: Verified all documentation Verification and Attestation of Medical Student E/M Service A medical student performed and documented this service in my presence. I reviewed and verified all information documented by the medical student and made modifications to such information, when appropriate. I personally performed the physical exam and medical decision making. Karyn Turner, Jun 28, 2019,19:49 ALEXA SOLIS MED STUDENT Jun 28, 2019 13:06 KARYN TURNER DO Jun 28, 2019 19:49
--- NOTE | 2019-06-28 13:45 | Physical Therapy Daily Note ---
PT Daily Note-Current Subjective Initially pt. declined Rx in AM asking this PRESS SETUP OPERATOR to come back in PM. PM pt. agrees but c/o she still has abdominal pain and nausea. Pt. wants to move very slowly secondary to pain Pain Numeric Pain Scale: 7 Location: Incisional Location Body Site: Abdomen Pain Description: Stabbing Appearance grimaces, Mental Status Patient Orientation: Normal For Age Attachments: NG Tube, Drains, IV Transfers SCALE: Activities may be completed with or without assistive devices. 2-Idjdjdxygv-dfqlukh completes the activity by him/herself with no assistance from a helper. 5-Set-up or Clean-up Assistance-helper sets up or cleans up; patient completes activity. [place] assists only prior to or following the activity. 4-Supervision or Touching Assistance-helper provides verbal cues and/or touching/steadying and/or contact guard assistance as patient completes activity. Assistance may be provided throughout the activity or intermittently. 3-Partial/Moderate Assistance-helper does LESS THAN HALF the effort. [place] lifts, holds or supports trunk or limbs, but provides less than half the effort. 2-Substantial/Maximal Assistance-helper does MORE THAN HALF the effort. [place] lifts or holds trunk or limbs and provides more than half the effort. 1-Teqigqtce-piivom does ALL the effort. Patient does none of the effort to complete the activity. Or, the assistance of 2 or more helpers is required for the patient to complete the activity. If activity was not attempted, code reason: 7-Patient Refused. 9-Not Applicable-not attempted and the patient did not perform the activity before the current illness, exacerbation or injury. 10-Not Attempted due to Environmental Limitations-(lack of equipment, weather restraints, etc.). 88-Not Attempted due to Medical Conditions or Safety Concerns. Transfers (B, C, W/C): 3 Roll Left to Right (QC): 3 Sit to Lying (QC): 3 Sit to Stand (QC): 5 Chair/Nfb-lb-Zteld Xfer(QC): 4 pt. unable to extend at hips and lay flat in bed , needs to keep knees and hips bent for comfort, able to slowly scoot bopttom over to right side after TRFing into bed given much time and instruction Weight Bearing Right Lower Extremity: Right Full Weight Bearing Left Lower Extremity: Left Full Weight Bearing Gait Training Does the Patient Walk?: Yes Gait: 4 Walk 10 feet (QC): 4 Gait Persons Needed: 1 Gait Assistive Device: FWW 25ft very slowly, assist for multiple tubes, CGA flexed at trunk Exercises Seated Therapy Exercises: Ankle pumps, Long arc quads, Hip abd/add Seated Reps: 12 Treatments toileted on BSC with max assist clean up Assessment Current Status: Good Progress pain limits function PT Senior Care Goals Ranch Manager Goals PT Senior Care Goals Time Frame: Jul 15, 2019 Sit to Lying (QC): 6 Lying-Sitting on Side/Bed(QC): 6 Sit to Stand (QC): 6 Roll Left to Right (QC): 6 Chair/Tsv-bw-Qhvml Xfer(QC): 6 Car Transfer (QC): 6 Does the Patient Walk: Yes Distance: 250' Walk 10 feet (QC): 6 Walk 10ft-Uneven Surface(QC): 6 Walk 50ft with 2 Turns (QC): 6 Walk 150 ft (QC): 6 Gait Assistive Device: None, FWW # of Steps: 4 1 Step (curb) (QC): 6 4 Steps (QC): 6 12 Steps (QC): 9 Stairs Level Of Assist: 6 Picking up an Object (QC): 6 PT Plan Treatment/Plan Treatment Plan: Continue Plan of Care Treatment Plan: Bed Mobility, Education, Functional Activity Carmina, Functional Strength, Gait, Safety, Therapeutic Exercise, Transfers Treatment Duration: Jul 15, 2019 Frequency: 6 times per week Estimated Hrs Per Day: .25 hour per day Patient and/or Family Agrees t: Yes Safety Risks/Education Patient Education: Gait Training, Transfer Techniques, Correct Positioning, Disease Process, Safety Issues Teaching Recipient: Patient Teaching Methods: Demonstration, Discussion Response to Teaching: Verbalize Understanding, Return Demonstration, Reinforcement Needed Time/GCodes Time In: 1300 Time Out: 1338 Total Billed Treatment Time: 38 Total Billed Treatment 1,FA23m,GT15m PALMER JARAMILLO PRESS SETUP OPERATOR Jun 28, 2019 13:45
--- NOTE | 2019-06-28 14:24 | Progress Note - Surgery ---
OSCAR GARCES [facility] 06/28/19 1424: Subjective Date Seen by a Provider: Jun 28, 2019 Time Seen by a Provider: 07:40 Subjective/Events-last exam Patient is doing better but does have pain around surgical incision. Rates it as an 8/10. Incision site has no surrounding erythema and is healing appropriately. Has no cough this morning. JG drains are working appropriately with 100mL discarded this morning. Fluid from drains is serous sanguineous, not purulent. UO has improved to 1.5 ml/kg/hr. WBC is 6.3. Patient denies, n/v, shortness of breath, chest pain or fever and chills. Review of Systems General: No Chills, No Other (Fevers) Pulmonary: No Dyspnea, No Cough Cardiovascular: No: Chest Pain Gastrointestinal: Abdominal Pain (at Surgical incision); No: Nausea, Vomiting Focused Exam Time of Focused Exam: 13:25 Objective Exam Vital Signs Date Time Temp Pulse Resp B/P (MAP) Pulse Ox O2 Delivery O2 Flow Rate FiO2 06/28/19 12:00 36.0 91 18 160/84 (109) 99 Room Air 06/28/19 09:00 Room Air 06/28/19 08:09 96 Room Air 06/28/19 08:00 35.4 94 18 138/85 (102) 93 Room Air 06/28/19 04:15 36.0 98 18 152/86 (108) 96 Room Air 06/28/19 00:34 35.4 104 20 158/93 (114) 96 Room Air 06/27/19 20:10 36.6 106 20 164/70 (101) 98 Room Air 06/27/19 20:00 Room Air 06/27/19 19:21 96 Room Air 06/27/19 18:47 37.3 104 20 160/81 (107) 94 Room Air 06/27/19 18:00 98 28 97 Room Air 06/27/19 17:00 90 11 98 Room Air 06/27/19 16:00 97 17 98 Room Air 06/27/19 16:00 Room Air 06/27/19 15:42 36.5 06/27/19 15:41 36.5 06/27/19 15:00 100 15 99 Room Air I & O 06/28/19 07:00 Intake Total 1720 ml Output Total 4205 ml Balance -2485 ml Capillary Refill : Less Than 3 SecondsLess Than 3 Seconds General Appearance: No Apparent Distress HEENT: PERRL/EOMI, Normal ENT Inspection Neck: Normal Inspection Respiratory: Lungs Clear, Normal Breath Sounds, No Accessory Muscle Use, No Respiratory Distress Cardiovascular: Regular Rate, Rhythm, No Gallop, No JVD, No Murmur Gastrointestinal: tenderness (incisional, trae drains with more serous fluid) Extremity: Normal Inspection, No Calf Tenderness Neurologic/Psychiatric: Alert, Oriented x3, Normal Mood/Affect Skin: Normal Color, Warm/Dry Lymphatic: No Adenopathy Results Lab Laboratory Tests 06/27/19 17:49: Glucometer 160H 06/27/19 23:33: Glucometer 232H 06/28/19 05:23: Glucometer 227H 06/28/19 06:07: White Blood Count 6.3, Red Blood Count 3.20L, Hemoglobin 9.0L, Hematocrit 27L, Mean Corpuscular Volume 84, Mean Corpuscular Hemoglobin 28, Mean Corpuscular Hemoglobin Concent 33, Red Cell Distribution Width 15.6H, Platelet Count 179, Mean Platelet Volume 9.3, Neutrophils (%) (Auto) 84H, Lymphocytes (%) (Auto) 8L, Monocytes (%) (Auto) 6, Eosinophils (%) (Auto) 1, Basophils (%) (Auto) 0, Neutrophils # (Auto) 5.3, Lymphocytes # (Auto) 0.5L, Monocytes # (Auto) 0.4, Eosinophils # (Auto) 0.1, Basophils # (Auto) 0.0, Sodium Level 132L, Potassium Level 4.9, Chloride Level 107, Carbon Dioxide Level 20L, Anion Gap 5, Blood Urea Nitrogen 9, Creatinine 0.57L, Estimat Glomerular Filtration Rate > 60, BUN/Creatinine Ratio 16, Glucose Level 214H, Calcium Level 7.3L, Phosphorus Level 2.8, Magnesium Level 1.4L 06/28/19 11:18: Glucometer 159H Microbiology 06/24/19 Blood Culture - Preliminary, Resulted No growth 06/24/19 Gram Stain - Final, Complete 06/24/19 Anaerobic Culture - Final, Complete No anaerobes isolated 06/24/19 Body Fluid Culture - Final, Complete YEAST Rothia mucilaginosa Streptococcus parasanguinis No Susceptibility Performed 06/24/19 MRSA Screen - Final, Complete MRSA not isolated Assessment/Plan Assessment/Plan Assessment/Plan s/p sudhir patch for perforate gastric pouch npo Pain control monitor trae drain tube continue ng tube s/ sudhir patch for perforate gastric pouch npo tpn ng tube do not advance or remove scott for accurat i/0 remove in am Clinical Quality Measures DVT/VTE Risk/Contraindication: Risk Factor Score Per Nursin RFS Level Per Nursing on Admit: 3=High ROBYN TAYLOR DO 06/28/19 2227: Subjective Subjective/Events-last exam Doing okay. NPO. Having incisional pain. TRAE drains serous. NG tube in place. On protonix. Denies n/v fever sweats chills shortness of breath or chest pain. Objective Exam General Appearance: No Apparent Distress HEENT: PERRL/EOMI Neck: Normal Inspection, Supple Respiratory: Chest Non Tender, No Accessory Muscle Use, No Respiratory Distress Cardiovascular: Regular Rate, Rhythm Gastrointestinal: tenderness (incisional, trae drains with more serous fluid) Extremity: Normal Inspection Neurologic/Psychiatric: Alert, Oriented x3, Normal Mood/Affect Skin: Normal Color Lymphatic: No Adenopathy Assessment/Plan Assessment/Plan Assessment/Plan s/p sudhir patch for perforate gastric pouch plan to eval for leak tomorrow leave NG tube If no leak plan to start liquids TPN for nutrition Supervisory-Addendum Brief Verification & Attestation Participated in pt care: history, MDM, physical Personally performed: exam, history, MDM, supervision of care Care discussed with: Medical Student Procedures: n/a Results interpretation: Verified all documentation Verification and Attestation of Medical Student E/M Service A medical student performed and documented this service in my presence. I reviewed and verified all information documented by the medical student and made modifications to such information, when appropriate. I personally performed the physical exam and medical decision making. Robyn Taylor, Jun 28, 2019,22:27 OSCAR GARCES Jun 28, 2019 14:24 ROBYN TAYLOR DO Jun 28, 2019 22:27
[2019-06-28 16:35] VITALS: BP 146/84
[2019-06-28] MEDS ORDERED: [UNRECOGNIZED DRUG - OTHER] IV SCH ×10 (17:00)
[2019-06-28] MEDS ORDERED: POTASSIUM CHLORIDE IV SCH ×10 (17:00)
[2019-06-28] MEDS ORDERED: SODIUM PHOSPHATE IV SCH ×10 (17:00)
[2019-06-28] MEDS ORDERED: SODIUM ACETATE IV SCH ×10 (17:00)
[2019-06-28] MEDS: LACTATED RINGERS 1,000 ML IV SCH (17:49)
[2019-06-28] MEDS: PANTOPRAZOLE INJECTION 200 MG in NS (IVPB) 100 ML IV SCH (17:49)
[2019-06-28 20:10] VITALS: BP 152/89
[2019-06-29] VITALS: BP 143/86
[2019-06-29] MEDS: inSUlin ASPART (NovoLOG) 1 UNIT/0.01 ML (CHARGE PER UNIT) SC SCH ×4 (00:18→18:32)
[2019-06-29] MEDS: LACTATED RINGERS 1,000 ML IV SCH ×4 (02:02→21:12)
[2019-06-29 04:00] VITALS: BP 152/88
[2019-06-29] MEDS: PIPERACILLIN/TAZOBACTAM (BULK) 4.5 GM in NS (IVPB) 100 ML IV SCH ×3 (05:00→21:09)
[2019-06-29 05:21] LABS: BASOPHILS % (AUTO) 0 % (0-10); EOSINOPHILS # (AUTO) 0.1 10^3/uL (0.0-0.3); EOSINOPHILS % (AUTO) 1 % (0-10); HEMATOCRIT 27 % (35-52); HEMOGLOBIN 8.7 G/DL (11.5-16.0); LYMPHOCYTES # (AUTO) 0.7 X 10^3 (1.0-4.0); LYMPHOCYTES % (AUTO) 12 % (12-44); MEAN CORPUSCULAR HEMOGLOBIN 27 PG (25-34); MEAN CORPUSCULAR HGB CONC 32 G/DL (32-36); MEAN CORPUSCULAR VOLUME 84 FL (80-99); MEAN PLATELET VOLUME 9.1 FL (7.4-10.4); MONOCYTES # (AUTO) 0.6 X 10^3 (0.0-1.0); MONOCYTES % (AUTO) 10 % (0-12); NEUTROPHILS # (AUTO) 4.3 X 10^3 (1.8-7.8); NEUTROPHILS % (AUTO) 77 % (42-75); PLATELET COUNT 219 10^3/uL (130-400); RED CELL DISTRIBUTION WIDTH 15.8 % (10.0-14.5); WHITE BLOOD COUNT 5.6 10^3/uL (4.3-11.0)
[2019-06-29 06:10] LABS: BUN/CREATININE RATIO 19; CALCIUM 7.8 MG/DL (8.5-10.1); CARBON DIOXIDE 23 MMOL/L (21-32); CHLORIDE 105 MMOL/L (98-107); CREATININE SERUM 0.54 MG/DL (0.60-1.30); GFR ESTIMATED > 60; GLUCOSE 168 MG/DL (70-105); MAGNESIUM 1.4 MG/DL (1.6-2.4); PHOSPHORUS 3.4 MG/DL (2.3-4.7); POTASSIUM 4.6 MMOL/L (3.6-5.0); SODIUM 134 MMOL/L (135-145)
[2019-06-29] MEDS: POTASSIUM CL 10MEQ/50ML IVPB 50 ML IV SCH (06:32)
[2019-06-29] MEDS: KCL 20 MEQ TAB (K-DUR) PO SCH (06:32)
--- NOTE | 2019-06-29 06:53 | NUR ---
Dr. Taylor notified of pt's complaints of nausea. New order rec for zofran 4mg IV q 6 hr prn.
[2019-06-29] MEDS ORDERED: ONDANSETRON 4 MG/2 ML (SDV) Z0FRAN IVP PRN (07:00)
[2019-06-29] MEDS: MAGNESIUM 1 GM/100 ML IVPB 100 ML IV SCH ×5 (07:29→11:39)
[2019-06-29 08:00] VITALS: BP_SYST 136; BP_SYST 138; BP_DIAS 74; BP_DIAS 89
[2019-06-29] MEDS: RT-ALBUTEROL SULF 2.5 MG/3 ML PRE-MIX VIAL INH SCH ×2 (08:10→19:45)
[2019-06-29] MEDS: FLUCONAZOLE 200 MG/100 ML 100 ML IV SCH (08:12)
--- NOTE | 2019-06-29 09:30 | Pulmonary Progress Note ---
Subjective Time Seen by a Provider: 09:30 Subjective/Events-last exam No complications noted Sepsis Event Evaluation Height, Weight, BMI Height: 5'5.00" Weight: 200lbs. 0.0oz. 90.778108vy; 29.00 BMI Method:Stated Focused Exam Time of Focused Exam: 13:25 Exam Exam Vital Signs Date Time Temp Pulse Resp B/P (MAP) Pulse Ox O2 Delivery O2 Flow Rate FiO2 06/29/19 08:11 95 Room Air 06/29/19 08:00 Room Air 06/29/19 04:00 36.1 99 18 152/88 (109) 99 Room Air 06/29/19 00:00 36.4 102 16 143/86 (105) 96 Room Air 06/28/19 20:10 36.0 104 18 152/89 (110) 96 Room Air 06/28/19 20:05 Room Air 06/28/19 19:54 Room Air 06/28/19 16:35 36.3 96 18 146/84 (104) 97 Room Air 06/28/19 12:00 36.0 91 18 160/84 (109) 99 Room Air I & O 06/29/19 07:00 Intake Total 4854.8633 ml Output Total 4245 ml Balance 609.8633 ml Height & Weight Height: 5'5.00" Weight: 200lbs. 0.0oz. 90.434174bt; 29.00 BMI Method:Stated General Appearance: No Apparent Distress HEENT: PERRL/EOMI Neck: Normal Inspection, Supple Respiratory: Chest Non Tender, No Accessory Muscle Use, No Respiratory Distress Cardiovascular: Regular Rate, Rhythm Capillary Refill: Less Than 3 Seconds Gastrointestinal: tenderness (incisional, trae drains with more serous fluid) Extremity: Normal Inspection Neurologic/Psychiatric: Alert, Oriented x3, Normal Mood/Affect Skin: Normal Color Lymphatic: No Adenopathy Results Lab Laboratory Tests 06/28/19 06:07 06/29/19 05:07 Assessment/Plan Assessment/Plan Acute gastric perf s/p open surgery/hx of gastric bypass -Surgery is following Atelectasis -IS -Increase activity -Repeat CXR Severe sepsis- improving -Zosyn, , Diflucan Anemia -Monitor NIDDM -SSI -Monitor REBEKA TOUSSAINT DO Jun 29, 2019 09:30
--- NOTE | 2019-06-29 09:56 | Physical Therapy Daily Note ---
PT Daily Note-Current Subjective Patient in recliner pre tx, agrees to PT, has 7/10 pain in her abdomen. Appearance Patient in WC post tx, going downstairs with xray. Mental Status Patient Orientation: Normal For Age Attachments: NG Tube, Drains, IV Transfers SCALE: Activities may be completed with or without assistive devices. 6-Ihsdonwori-gvlkdfl completes the activity by him/herself with no assistance from a helper. 5-Set-up or Clean-up Assistance-helper sets up or cleans up; patient completes activity. [place] assists only prior to or following the activity. 4-Supervision or Touching Assistance-helper provides verbal cues and/or touching/steadying and/or contact guard assistance as patient completes activity. Assistance may be provided throughout the activity or intermittently. 3-Partial/Moderate Assistance-helper does LESS THAN HALF the effort. [place] lifts, holds or supports trunk or limbs, but provides less than half the effort. 2-Substantial/Maximal Assistance-helper does MORE THAN HALF the effort. [place] lifts or holds trunk or limbs and provides more than half the effort. 2-Pdjxtwsel-dijytv does ALL the effort. Patient does none of the effort to complete the activity. Or, the assistance of 2 or more helpers is required for the patient to complete the activity. If activity was not attempted, code reason: 7-Patient Refused. 9-Not Applicable-not attempted and the patient did not perform the activity before the current illness, exacerbation or injury. 10-Not Attempted due to Environmental Limitations-(lack of equipment, weather restraints, etc.). 88-Not Attempted due to Medical Conditions or Safety Concerns. Sit to Stand (QC): 4 Chair/Dbk-bj-Hiskn Xfer(QC): 4 SBA, very slow but steady, gets nauseated and needs rest breaks Weight Bearing Right Lower Extremity: Right Full Weight Bearing Left Lower Extremity: Left Full Weight Bearing Gait Training Distance: 20' Walk 10 feet (QC): 4 Gait Persons Needed: 1 Gait Assistive Device: FWW SBA, slow but steady, xray comes during treatment and needs to take her for testing, she is able to ambulate to the WC and then go to xray Treatments ambulation Assessment Current Status: Fair Progress SBA with transfers and ambulation PT Garde Manger Goals Garde Manger Goals PT Garde Manger Goals Time Frame: Jul 15, 2019 Sit to Lying (QC): 6 Lying-Sitting on Side/Bed(QC): 6 Sit to Stand (QC): 6 Roll Left to Right (QC): 6 Chair/Vbi-nz-Wkrte Xfer(QC): 6 Car Transfer (QC): 6 Does the Patient Walk: Yes Distance: 250' Walk 10 feet (QC): 6 Walk 10ft-Uneven Surface(QC): 6 Walk 50ft with 2 Turns (QC): 6 Walk 150 ft (QC): 6 Gait Assistive Device: None, FWW # of Steps: 4 1 Step (curb) (QC): 6 4 Steps (QC): 6 12 Steps (QC): 9 Stairs Level Of Assist: 6 Picking up an Object (QC): 6 PT Plan Problem List Problem List: Activity Tolerance, Functional Strength, Safety, Balance, Gait, Transfer, Bed Mobility, ROM Treatment/Plan Treatment Plan: Continue Plan of Care Treatment Plan: Bed Mobility, Education, Functional Activity [place], Functional Strength, Gait, Safety, Therapeutic Exercise, Transfers Treatment Duration: Jul 15, 2019 Frequency: 6 times per week Estimated Hrs Per Day: .25 hour per day Patient and/or Family Agrees t: Yes Safety Risks/Education Patient Education: Gait Training, Transfer Techniques, Correct Positioning, Safety Issues Teaching Recipient: Patient Teaching Methods: Demonstration, Discussion Response to Teaching: Reinforcement Needed Time/GCodes Time In: 940 Time Out: 951 Total Billed Treatment Time: 11 Total Billed Treatment 1 visit GT 11' SAHIL TOVAR PT Jun 29, 2019 09:56
[2019-06-29] MEDS ORDERED: DIATRIZOATE MEGLUM/SODIUM 37% 120 ML (GASTROGRAFIN) NG ONE (10:15)
--- NOTE | 2019-06-29 10:23 | NUR ---
IRF Order received to evaluate patient for the ARU. Chart review complete and findings discussed with Dr. Mcgee - patient accepted. Patient's primary insurance provider is [facility]; therefore, prior authorization will need to be submitted for determination. Attempted to meet with patient; however, patient had just left with XR. Will re-attempt. Thank you for this referral.
--- NOTE | 2019-06-29 11:05 | Occ Therapy Progress Note ---
Therapy Progress Note 10:55-11:00 Pt seen in room, up in recliner, asleep. Recently back from radiology and had PT before she left. pt declined OT, stating fatigue. Agreed to reach overhead with bilat UEs on her own today to help increase UE strength and activity tolerance. Cont OT. visit, 5 minutes ex CHRISTOPHER MARTIN OT Jun 29, 2019 11:04
--- NOTE | 2019-06-29 11:32 | Diagnostic Imaging Report ---
INDICATION: Patient is status post Bret-en-Y gastric bypass surgery several years earlier. Patient had a recent perforation with patch placed in the distal aspect of the gastric pouch. The study is performed to evaluate for leak. TECHNIQUE: Small volume of Gastrografin contrast was injected through the patient's indwelling NG tube and spot films over the upper abdomen were obtained in multiple obliquities. A total of 2 minutes and 34 seconds of fluoroscopic time was utilized. FINDINGS: Preliminary radiograph shows midline skin erica. These erica are in the right upper quadrant. NG tube passes just beyond the GE junction. Distal esophagus is unremarkable. The gastric pouch is small. There is passage of contrast through the gastric pouch into the small bowel loops. No abnormal accumulation of contrast or gross contrast extravasation is detected. IMPRESSION: No gastric leak is identified. Dictated by: Dictated on workstation # [id number]
--- NOTE | 2019-06-29 11:54 | Diagnostic Imaging Report ---
INDICATION: Shortness of breath. FINDINGS: The appearance of the chest has improved somewhat since 06/27/2019 as both lung bases are better aerated. There is still some residual atelectasis/infiltrate bilaterally. However, the pneumoperitoneum beneath the right hemidiaphragm seen previously has increased. The reason for this is not certain. The upper lungs are clear. The heart is stable. The mediastinum is not widened. The osseous structures are intact. The central venous catheter and NG line are similar in position to the prior exam. IMPRESSION: There are mixed results. The lung bases do seem better aerated but the amount of free air beneath the right hemidiaphragm has increased. The reason for this is not certain. Clinical follow-up is recommended. Dictated by: Dictated on workstation # [id number]
[2019-06-29 12:00] VITALS: BP 153/77
--- NOTE | 2019-06-29 12:01 | Progress Note - Hospitalist ---
ALEXA SOLIS MED STUDENT 06/29/19 1201: Subjective HPI/CC On Admission Date Seen by Provider: Jun 29, 2019 Time Seen by Provider: 08:40 Chief complaint: Perforated intestine History of present illness: This is a 49-year-old white female clinic patient of [facility] with a past medical history of gastric bypass and multiple abdominal surgeries who presented to the hospital via paramedics due to severe abdominal pain nausea and vomiting. CT scan obtained showing free air suggesting perforation. Dr. Taylor was consulted to place central line urgently due to septic shock status requiring aggressive IV fluid resuscitation and pressor therapy. She is placed on broad-spectrum antibiotics with Diflucan Zos yn and vancomycin. Patient was urgently taken to surgery and she was well aware of this plan and agreed with the management. Subjective/Events-last exam * abdominal pain has improved to 7/10 * denies further improvement in her strength and energy * Has not had BM since her procedure * She has participated in PT, but did not participate in OT yesterday due to fatigue, although she did do some UE exercises. * Had an upper GI series this morning that showed no gastric leak. * GINNING OPERATOR this morning shows that the lung bases do seem better aerated, but the amount of free air beneath the right hemidiaphragm has increased. The reason for this is not certain. * She remains anemic, and her WBC counts have improved. * Her Ca is low at 7.8, Mg low at 1.4, and Cr low at .54. Review of Systems General: No Chills HEENT: No Sinus Congestion Pulmonary: No Dyspnea, No Cough Cardiovascular: No: Chest Pain, Edema Gastrointestinal: Abdominal Pain; No: Nausea Genitourinary: No Dysuria Neurological: No: Weakness, Numbness Focused Exam Time of Focused Exam: 13:25 Objective Exam Vital Signs Vital Signs Date Time Temp Pulse Resp B/P (MAP) Pulse Ox O2 Delivery O2 Flow Rate FiO2 06/29/19 16:00 36.0 96 16 155/87 (109) 98 Room Air 06/27/19 10:17 21 06/24/19 18:15 3 Capillary Refill : Less Than 3 SecondsLess Than 3 Seconds General Appearance: No Apparent Distress, Obese Respiratory: Lungs Clear, Normal Breath Sounds, No Accessory Muscle Use, No Respiratory Distress Cardiovascular: No Edema, No Gallop, No Murmur, Normal Peripheral Pulses, Tachycardia Extremity: Normal Inspection, Non Tender, No Calf Tenderness, No Pedal Edema Neurologic/Psychiatric: Alert, Oriented x3, Normal Mood/Affect Results/Procedures Lab Laboratory Tests 06/29/19 05:07 Patient resulted labs reviewed. Assessment/Plan Assessment and Plan Assess & Plan/Chief Complaint Assessment: 1. Acute abdominal pain with perforation on CT scan with free air s/p repair Dr Taylor POD # 1 2. abnormal CXR 3. Septic shock 4. anemia 5. h/o multiple abdominal surgeries 6. Post op ileus 7. NGT maintained Plan: 1. Consider UGI endoscopy 2. Continue PT/OT 3. monitor pulmonary function 4. monitor anemia 5. Continue medications for sepsis 6. TPN since NPO 7. Pain control Clinical Quality Measures DVT/VTE Risk/Contraindication: Risk Factor Score Per Nursin RFS Level Per Nursing on Admit: 3=High KARYN TURNER DO 06/29/192039: Subjective Subjective/Events-last exam Pt has lack of motivation. Will get out of bed and walk in the halls three times today. Unsure of her recovery potential since she does have a lack of motivation. Review of Systems General: Fatigue Objective Exam General Appearance: No Apparent Distress, WD/WN, Chronically ill Respiratory: Lungs Clear Cardiovascular: Regular Rate, Rhythm Neurologic/Psychiatric: Alert, Oriented x3, No Motor/Sensory Deficits, Depressed Affect Assessment/Plan Assessment and Plan Assess & Plan/Chief Complaint Poor motivation OOB Pain control Diagnosis/Problems Diagnosis/Problems (1) Gastrointestinal perforation Status: Acute (2) Septic shock Status: Acute (3) Nausea and vomiting Status: Acute Qualifiers: Qualified Codes: R11.2 - Nausea with vomiting, unspecified Supervisory-Addendum Brief Verification & Attestation Participated in pt care: history, MDM, physical Personally performed: exam, history, MDM, supervision of care Care discussed with: Medical Student Procedures: n/a Results interpretation: Verified all documentation Verification and Attestation of Medical Student E/M Service A medical student performed and documented this service in my presence. I reviewed and verified all information documented by the medical student and made modifications to such information, when appropriate. I personally performed the physical exam and medical decision making. Karyn Turner, Jun 29, 2019,20:40 ALEXA SOLIS MED STUDENT Jun 29, 2019 12:01 KARYN TURNER DO Jun 29, 2019 20:40
--- NOTE | 2019-06-29 14:48 | Occupational Ther Daily Note ---
OT Current Status-Daily Note Subjective Pt alert, sitting in recliner. Pt agrees to therapy. Pt c/o fatigue and pain with movement. Mental Status/Objective Patient Orientation: Person, Place, Time, Situation Attachments: Drains, IV, NG Tube ADL-Treatment Sit <--> stand SBA then transferred to [facility] with SBA and assist to manipulate tubing. Pt able to manipulate hospital gown though unable to cleanse self after urination. Pt then ambulated with CGA and assist to manipulate IV pole and tubing out to hallway and back to bed. Min A with LE's to go from EOB to supine. After therapy, pt in bed with call light/phone in reach. DIRECTOR OF STATE in reach. All needs met in room. Therapy Code Descriptions/Definitions Functional [place] Measure: 0=Not Assessed/NA 4=Minimal Assistance 1=Total Assistance 5=Supervision or Setup 2=Maximal Assistance 6=Modified [place] 3=Moderate Assistance 7=Complete IndependenceSCALE: Activities may be completed with or without assistive devices. 0-Umlpqyxzjp-rpyimgb completes the activity by him/herself with no assistance from a helper. 5-Set-up or Clean-up Assistance-helper sets up or cleans up; patient completes activity. [place] assists only prior to or following the activity. 4-Supervision or Touching Assistance-helper provides verbal cues and/or touching/steadying and/or contact guard assistance as patient completes activity. Assistance may be provided throughout the activity or intermittently. 3-Partial/Moderate Assistance-helper does LESS THAN HALF the effort. [place] lifts, holds or supports trunk or limbs, but provides less than half the effort. 2-Substantial/Maximal Assistance-helper does MORE THAN HALF the effort. [place] lifts or holds trunk or limbs and provides more than half the effort. 9-Bliyteeli-bvjlao does ALL the effort. Patient does none of the effort to complete the activity. Or, the assistance of 2 or more helpers is required for the patient to complete the activity. If activity was not attempted, code reason: 7-Patient Refused. 9-Not Applicable-not attempted and the patient did not perform the activity before the current illness, exacerbation or injury. 10-Not Attempted due to Environmental Limitations-(lack of equipment, weather restraints, etc.). 88-Not Attempted due to Medical Conditions or Safety Concerns. Toileting Hygiene (QC): 2 Toilet Transfer (QC): 4 OT Short Term Goals Short Term Goals Time Frame: Jul 03, 2019 Eating(FIM): 5 Grooming(FIM): 5 Bathing(FIM): 3 Upper Body Dressing(FIM): 4 Lower Body Dressing(FIM): 3 Toileting(FIM): 3 Transfers (B,C,W/C) (FIM): 4 Toilet/Commode Transfer(FIM): 4 Additional Short Term Goals: 1-Demonstrate ADL Tasks, 2-Verbalize Understanding, 3-ImproveStrength/Carmina 1=Demonstrate adherence to instructed precautions during ADL tasks. 2=Patient will verbalize/demonstrate understanding of assistive devices/modifications for ADL. 3=Patient will improve strength/tolerance for activity to enable patient to perform ADL's. OT Snf Goals Traffic Ii Manager Goals Time Frame: Jul 10, 2019 Eating (QC): 6 Oral Hygiene (QC): 6 Shower/Bathe Self (QC): 5 Upper Body Dressing (QC): 5 Lower Body Dressing (QC): 5 On/Off Footwear (QC): 5 Toileting Hygiene (QC): 6 Toilet/Commode Transfer (QC): 6 Additional Goals: 1-Demonstrate ADL Tasks, 2-Verbalize Understanding, 3- ImproveStrength/Carmina 1=Demonstrate adherence to instructed precautions during ADL tasks. 2=Patient will verbalize/demonstrate understanding of assistive devices/modifications for ADL. 3=Patient will improve strength/tolerance for activity to enable patient to perform ADL's. OT Education/Plan Problem List/Assessment Assessment: Decreased Activ Tolerance, Impaired Self-Care Skills Discharge Recommendations Plan/Recommendations: Continue POC Treatment Plan/Plan of Care Patient would benefit from OT for education, treatment and training to promote independence in ADL's, mobility, safety and/or upper extremity function for ADL's. Plan of Care: ADL Retraining, Functional Mobility, UE Funct Exercise/Act Treatment Duration: Jul 10, 2019 Frequency: 5 times per week Estimated Hrs Per Day: .5 hour per day Agreement: Yes Rehab Potential: Good Time/GCodes Start Time: 14:17 Stop Time: 14:40 Total Time Billed (hr/min): 23 Billed Treatment Time 1 visit-FA 2 (23 min) ENRESTO DANGELO Jun 29, 2019 14:48
--- NOTE | 2019-06-29 15:55 | NUR ---
Pastoral care visit.
[2019-06-29 16:00] VITALS: BP 155/87
--- NOTE | 2019-06-29 16:04 | NUR ---
client services director medication changed by this RN, remaining 30mgs morphine wasted with CECILIA Bernardo. new bag hung. patient reports no pain at this time.
[2019-06-29] MEDS ORDERED: [UNRECOGNIZED DRUG - OTHER] IV SCH ×11 (17:00)
[2019-06-29] MEDS ORDERED: SODIUM ACETATE IV SCH ×11 (17:00)
[2019-06-29] MEDS ORDERED: SODIUM CHLORIDE IV SCH ×11 (17:00)
[2019-06-29] MEDS ORDERED: ENOXAPARIN 40 MG/0.4 ML (LOVENOX) SYR SC SCH (17:30)
[2019-06-29] MEDS: PANTOPRAZOLE INJECTION 200 MG in NS (IVPB) 100 ML IV SCH (17:32)
[2019-06-29 20:00] VITALS: BP 145/86
--- NOTE | 2019-06-29 20:02 | Progress Note - Surgery ---
Subjective Date Seen by a Provider: Jun 29, 2019 Time Seen by a Provider: 18:23 Subjective/Events-last exam continues to feel better. incisional tenderness. NPO, NG tube in place. Patient with UGI demonstrating NO leak. Discussed with Dr. Rojas. Denies n/v fever sweats chills shortness of breath or chest pain. Focused Exam Time of Focused Exam: 13:25 Objective Exam Vital Signs Date Time Temp Pulse Resp B/P (MAP) Pulse Ox O2 Delivery O2 Flow Rate FiO2 06/29/19 16:00 36.0 96 16 155/87 (109) 98 Room Air 06/29/19 12:00 35.8 95 18 153/77 (102) 98 Room Air 06/29/19 08:11 95 Room Air 06/29/19 08:00 36.3 93 16 136/89 (105) 95 Room Air 06/29/19 08:00 Room Air 06/29/19 04:00 36.1 99 18 152/88 (109) 99 Room Air 06/29/19 00:00 36.4 102 16 143/86 (105) 96 Room Air 06/28/19 20:10 36.0 104 18 152/89 (110) 96 Room Air 06/28/19 20:05 Room Air I & O 06/29/19 06:59 Intake Total 4854.8633 ml Output Total 4245 ml Balance 609.8633 ml Capillary Refill : Less Than 3 SecondsLess Than 3 Seconds General Appearance: No Apparent Distress, Obese HEENT: PERRL/EOMI Neck: Normal Inspection, Supple Respiratory: Chest Non Tender, No Accessory Muscle Use, No Respiratory Distress Cardiovascular: Regular Rate, Rhythm, No Murmur, Normal Peripheral Pulses Gastrointestinal: tenderness (incisional, trae drains with more serous fluid) Extremity: Normal Inspection, Non Tender, No Calf Tenderness, No Pedal Edema Neurologic/Psychiatric: Alert, Oriented x3, Normal Mood/Affect Skin: Normal Color Lymphatic: No Adenopathy Results Lab Laboratory Tests 06/29/19 00:05: Glucometer 108 06/29/19 05:07: White Blood Count 5.6, Red Blood Count 3.20L, Hemoglobin 8.7L, Hematocrit 27L, Mean Corpuscular Volume 84, Mean Corpuscular Hemoglobin 27, Mean Corpuscular Hemoglobin Concent 32, Red Cell Distribution Width 15.8H, Platelet Count 219, Mean Platelet Volume 9.1, Neutrophils (%) (Auto) 77H, Lymphocytes (%) (Auto) 12, Monocytes (%) (Auto) 10, Eosinophils (%) (Auto) 1, Basophils (%) (Auto) 0, Neutrophils # (Auto) 4.3, Lymphocytes # (Auto) 0.7L, Monocytes # (Auto) 0.6, Eosinophils # (Auto) 0.1, Basophils # (Auto) 0.0, Sodium Level 134L, Potassium Level 4.6, Chloride Level 105, Carbon Dioxide Level 23, Anion Gap 6, Blood Urea Nitrogen 10, Creatinine 0.54L, Estimat Glomerular Filtration Rate > 60, BUN/Creatinine Ratio 19, Glucose Level 168H, Calcium Level 7.8L, Phosphorus Level 3.4, Magnesium Level 1.4L 06/29/19 11:36: Glucometer 201H 06/29/19 17:56: Glucometer 142H Microbiology 06/24/19 Blood Culture - Final, Complete No growth 06/24/19 Gram Stain - Final, Complete 06/24/19 Anaerobic Culture - Final, Complete No anaerobes isolated 06/24/19 Body Fluid Culture - Final, Complete YEAST Rothia mucilaginosa Streptococcus parasanguinis No Susceptibility Performed 06/24/19 MRSA Screen - Final, Complete MRSA not isolated Assessment/Plan Assessment/Plan Assessment/Plan 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
[2019-06-30] VITALS: BP 166/91
[2019-06-30] MEDS: inSUlin ASPART (NovoLOG) 1 UNIT/0.01 ML (CHARGE PER UNIT) SC SCH ×2 (00:31→06:25)
[2019-06-30 03:49] VITALS: BP 144/84
[2019-06-30] MEDS: PIPERACILLIN/TAZOBACTAM (BULK) 4.5 GM in NS (IVPB) 100 ML IV SCH (04:35)
[2019-06-30 06:51] LABS: BASOPHILS % (AUTO) 0 % (0-10); EOSINOPHILS # (AUTO) 0.1 10^3/uL (0.0-0.3); EOSINOPHILS % (AUTO) 1 % (0-10); HEMATOCRIT 27 % (35-52); HEMOGLOBIN 8.9 G/DL (11.5-16.0); LYMPHOCYTES # (AUTO) 0.7 X 10^3 (1.0-4.0); LYMPHOCYTES % (AUTO) 14 % (12-44); MEAN CORPUSCULAR HEMOGLOBIN 28 PG (25-34); MEAN CORPUSCULAR HGB CONC 33 G/DL (32-36); MEAN CORPUSCULAR VOLUME 85 FL (80-99); MEAN PLATELET VOLUME 9.6 FL (7.4-10.4); MONOCYTES # (AUTO) 0.5 X 10^3 (0.0-1.0); MONOCYTES % (AUTO) 10 % (0-12); NEUTROPHILS # (AUTO) 3.7 X 10^3 (1.8-7.8); NEUTROPHILS % (AUTO) 74 % (42-75); PLATELET COUNT 236 10^3/uL (130-400); RED CELL DISTRIBUTION WIDTH 15.4 % (10.0-14.5); WHITE BLOOD COUNT 4.9 10^3/uL (4.3-11.0)
[2019-06-30 07:16] LABS: BUN/CREATININE RATIO 19; CALCIUM 7.8 MG/DL (8.5-10.1); CARBON DIOXIDE 25 MMOL/L (21-32); CHLORIDE 103 MMOL/L (98-107); CREATININE SERUM 0.57 MG/DL (0.60-1.30); GFR ESTIMATED > 60; GLUCOSE 181 MG/DL (70-105); MAGNESIUM 1.7 MG/DL (1.6-2.4); PHOSPHORUS 3.9 MG/DL (2.3-4.7); POTASSIUM 4.7 MMOL/L (3.6-5.0); SODIUM 134 MMOL/L (135-145)
[2019-06-30 07:44] VITALS: BP 158/78
[2019-06-30] MEDS: KCL 20 MEQ TAB (K-DUR) PO SCH (07:54)
[2019-06-30] MEDS: POTASSIUM CL 10MEQ/50ML IVPB 50 ML IV SCH (07:54)
[2019-06-30] MEDS: RT-ALBUTEROL SULF 2.5 MG/3 ML PRE-MIX VIAL INH SCH (08:58)
[2019-06-30] MEDS: FLUCONAZOLE 200 MG/100 ML 100 ML IV SCH (09:48)
[2019-06-30] MEDS: LACTATED RINGERS 1,000 ML IV SCH (09:52)
--- NOTE | 2019-06-30 10:52 | NUR ---
REPORT GIVEN TO CECILIA VALENTIN ON ARU
[2019-06-30] MEDS ORDERED: ACET-2267 PO (11:34)
[2019-06-30] MEDS ORDERED: ONDA4TAB10 PO (11:34)
[2019-06-30] MEDS ORDERED: SERT100T8 PO (11:34)
[2019-06-30] MEDS ORDERED: PREG150C PO (11:34)
[2019-06-30] MEDS ORDERED: PEPTIVA PO (11:34)
[2019-06-30] MEDS ORDERED: SODIUM ACETATE IV SCH ×11 (17:00)
[2019-06-30] MEDS ORDERED: SODIUM CHLORIDE IV SCH ×11 (17:00)
[2019-06-30] MEDS ORDERED: [UNRECOGNIZED DRUG - OTHER] IV SCH ×11 (17:00)
--- NOTE | 2019-06-30 21:10 | Discharge Summary ---
Discharge Summary Hospital Course Was the Problem List Reviewed?: Yes Problems/Dx: (1) Gastrointestinal perforation Status: Resolved (2) Septic shock Status: Resolved (3) Nausea and vomiting Status: Acute Qualifiers: Qualified Codes: R11.2 - Nausea with vomiting, unspecified Hospital Course Date of Admission: Admission Diagnosis : Family Physician/Provider: Gilma Maciel Aprn Date of Discharge: 06/30/19 Discharge Diagnosis: Septic shock, perforation gastric Hospital Course: Hospital course: Pt had a lengthy hospital course that begin with septic shock due to intestinal perforation brought to surgery by Dr. Taylor showing a gastric perforation, Pt was placed on broad-spectrum antibiotics, TPN, and placed on strict NPO and pain was managed IV form of pain medication. Overall she recovered nicely, she was still very weak and maintained on TPN and only a few ounces of oral intake at a time so she was transferred to inpatient rehab to continue her recovery. Labs and Pending Lab Test: Laboratory Tests 06/30/19 00:04: Glucometer 177H 06/30/19 05:48: White Blood Count 4.9, Red Blood Count 3.19L, Hemoglobin 8.9L, Hematocrit 27L, Mean Corpuscular Volume 85, Mean Corpuscular Hemoglobin 28, Mean Corpuscular Hemoglobin Concent 33, Red Cell Distribution Width 15.4H, Platelet Count 236, Mean Platelet Volume 9.6, Neutrophils (%) (Auto) 74, Lymphocytes (%) (Auto) 14, Monocytes (%) (Auto) 10, Eosinophils (%) (Auto) 1, Basophils (%) (Auto) 0, Neutrophils # (Auto) 3.7, Lymphocytes # (Auto) 0.7L, Monocytes # (Auto) 0.5, Eosinophils # (Auto) 0.1, Basophils # (Auto) 0.0, Sodium Level 134L, Potassium Level 4.7, Chloride Level 103, Carbon Dioxide Level 25, Anion Gap 6, Blood Urea Nitrogen 11, Creatinine 0.57L, Estimat Glomerular Filtration Rate > 60, BUN/Creatinine Ratio 19, Glucose Level 181H, Calcium Level 7.8L, Phosphorus Level 3.9, Magnesium Level 1.7 06/30/19 06:17: Glucometer 195H Microbiology 06/24/19 Blood Culture - Final, Complete No growth 06/24/19 Gram Stain - Final, Complete 06/24/19 Anaerobic Culture - Final, Complete No anaerobes isolated 06/24/19 Body Fluid Culture - Final, Complete YEAST Rothia mucilaginosa Streptococcus parasanguinis No Susceptibility Performed 06/24/19 MRSA Screen - Final, Complete MRSA not isolated Home Meds Active Reported Tylenol Extra Strength (Acetaminophen) 500 Mg Tablet 500-1,000 Mg PO Q4H PRN Ondansetron HCl 4 Mg Tablet 4 Mg PO TID PRN Lyrica (Pregabalin) 150 Mg Capsule 150 Mg PO BID Sertraline HCl 100 Mg Tablet 100 Mg PO HS [Peptiva] 1 Cap PO HS Ropinirole HCl 0.5 Mg Tablet 1 Mg PO HS LAST FILLED #56 05-08-19 TAKES 2 (0.5MG) TABLETS Topiramate 25 Mg Tablet 50 Mg PO HS TAKES 2 (25MG) TALBETS Januvia (Sitagliptin Phosphate) 100 Mg Tablet 100 Mg PO DAILY Metformin HCl 1,000 Mg Tablet 1,000 Mg PO BID Assessment/Pt Instructions IRF Discharge Planning: <30 minutes discharge planning Discharge Instructions Discharge Diet: Other Diet Activity as Tolerated: Yes Discharge Physical Examination Vital Signs Vital Signs Date Time Temp Pulse Resp B/P (MAP) Pulse Ox O2 Delivery O2 Flow Rate FiO2 06/30/19 11:10 06/30/19 09:00 99 Room Air 06/30/19 07:44 36.2 103 18 06/27/19 10:17 21 06/24/19 18:15 3 General Appearance: No Apparent Distress, WD/WN Respiratory: Lungs Clear Cardiovascular: Regular Rate, Rhythm Neurologic/Psychiatric: Alert, Oriented x3, No Motor/Sensory Deficits, Normal Mood/Affect Allergies: Coded Allergies: NSAIDS (Non-Steroidal Anti-Inflamma (Verified Adverse Reaction, Unknown, 12/15/18) UNABLE TO TAKE DUE TO GASTRIC SURG Discharge Summary Date of Admission Date of Discharge Discharge Date: Jun 30, 2019 Discharge Diagnosis Poor motivation OOB Pain control (1) Gastrointestinal perforation Status: Resolved (2) Septic shock Status: Resolved (3) Nausea and vomiting Status: Acute Qualifiers: Qualified Codes: R11.2 - Nausea with vomiting, unspecified Clinical Quality Measures DVT/VTE Risk/Contraindication: Risk Factor Score Per Nursin RFS Level Per Nursing on Admit: 3=High DIONICIO TURNER DO Jun 30, 2019 21:10
== END 2019-06-30 11:10 ==
LOC: EDUNIT# 09:37 → ER 09:38 → SDC 13:47 → ICU 17:57 → 4TH 06-27 18:23 → SDC 06-30 11:10
PROVIDERS: ATTEND Surgery
DX: K95.89 Other complications of other bariatric procedure (principal); I95.9 Hypotension, unspecified; K66.0 Peritoneal adhesions (postprocedural) (postinfection); A41.9 Sepsis, unspecified organism; R65.21 Severe sepsis with septic shock; G43.909 Migraine, unspecified, not intractable, without status migrainosus; E11.40 Type 2 diabetes mellitus with diabetic neuropathy, unspecified; I10 Essential (primary) hypertension; I31.9 Disease of pericardium, unspecified; N39.0 Urinary tract infection, site not specified; B96.89 Other specified bacterial agents as the cause of diseases classified elsewhere; M79.7 Fibromyalgia; R11.2 Nausea with vomiting, unspecified; F41.9 Anxiety disorder, unspecified; Z88.8 Allergy status to other drugs, medicaments and biological substances; Z79.891 Long term (current) use of opiate analgesic; Z79.84 Long term (current) use of oral hypoglycemic drugs; Z90.710 Acquired absence of both cervix and uterus; Z90.89 Acquired absence of other organs
CPT/HCPCS: 36415; 71045; 74177; 80048; 80053; 82962; 83605; 83690; 83735; 84100; 84484; 85025; 85610; 85730; 86141; 87040; 87070; 87075; 87077; 87081; 87205; 87804; 93005; 93041; 94640; 94664; 96365; 96366; 96367; 96368; 96375

== ENCOUNTER 2019-06-30 08:53 | Inpatient (IN) | payer BC ==
[~2019-06-30] VITALS: Ht 165.1 cm; Wt 90.1 kg
[2019-06-30] MEDS ORDERED: PEPTIVA PO (11:34)
[2019-06-30] MEDS ORDERED: PREG150C PO (11:34)
[2019-06-30] MEDS ORDERED: ONDA4TAB10 PO (11:34)
[2019-06-30] MEDS ORDERED: ACET-2267 PO (11:34)
[2019-06-30] MEDS ORDERED: SERT100T8 PO (11:34)
--- NOTE | 2019-06-30 11:37 | Occupational Therapy Eval ---
OT Evaluation-General/PLF Medical Diagnosis Admission Date Jun 30, 2019 at 11:15 Medical Diagnosis: Laparoscopy/gastrointestinal perforation Onset Date: Jun 24, 2019 Therapy Diagnosis Therapy Diagnosis: Decreased mobility and ADL function Height/Weight Height (Feet): 5 Height (Inches): 5.00 Weight (Pounds): 200 Weight (Ounces): 0.0 Precautions Precautions/Isolations: Fall Prevention, Standard Precautions Weight Bear Status Weight Bearing Restriction: Weight Bearing/Tolerated Referral Physician: Karyn Mcgee DO Referral Reason: Activity Tolerance, Self Care, Evaluation/Treatment, Strengthening/ROM Medical History Pertinent Medical History: DM Additional Medical History gastric bipass, hysteresctomy, DM, fibromyalgia Current History Per H&P: " Patient is a 49 year old female with diffuse abdominal pain. Has been having nausea and vomiting that started 2 days ago. Worsening symptoms. Pain severe all over abdomen. Worse with any movement. Nothing making it better. Had so much pain today called EMS to bring to hospital. She has been hypotensive in the emergency department and we have fluid resuscitated and central line has been placed. Patient has history of gastric bypass in 2006 and has lost over [address] scan performed that we reviewed that demonstrates free air in abdomen, large amount of fluid in the abdomen and thickening of the bowels." Reviewed History: Yes Social History Home: Single Level Current Living Status: Spouse (and children) Entry Into Home: Ramp Steps Into Home: 0 Steps Inside Home: 0 ADL-Prior Level of Function SCALE: Activities may be completed with or without assistive devices. 9-Bstxohemze-grefhlk completes the activity by him/herself with no assistance from a helper. 5-Set-up or Clean-up Assistance-helper sets up or cleans up; patient completes activity. [place]in assists only prior to or following the activity. 4-Supervision or Touching Assistance-helper provides verbal cues and/or touching/steadying and/or contact guard assistance as patient completes activity. Assistance may be provided throughout the activity or intermittently. 3-Partial/Moderate Assistance-helper does LESS THAN HALF the effort. Hardin lifts, holds or supports trunk or limbs, but provides less than half the effort. 2-Substantial/Maximal Assistance-helper does MORE THAN HALF the effort. Hardin lifts or holds trunk or limbs and provides more than half the effort. 9-Wlxhipaqv-schxhh does ALL the effort. Patient does none of the effort to complete the activity. Or, the assistance of 2 or more helpers is required for the patient to complete the activity. If activity was not attempted, code reason: 7-Patient Refused. 9-Not Applicable-not attempted and the patient did not perform the activity before the current illness, exacerbation or injury. 10-Not Attempted due to Environmental Limitations-(lack of equipment, weather restraints, etc.). 88-Not Attempted due to Medical Conditions or Safety Concerns. 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 Pt expresses pain with any movements. Pt agreeable to OT evaluation, pt states she needs to lie down as she is in pain. P t denies getting up and completing ADLs as she is in too much pain. Pt states she will get up later when rested and in less pain. Mental Status/Objective Patient Orientation: Person, Place, Time, Normal For Age Attachments: IV, Other-See Comments Current Hearing Aids: No Dentures/Partials: No Upper Extremity ROM impaired due to pain. Upper Extremity Coordination WFL Upper Extremity Sensation WFL- no c/o paresthesias in BUE/BLE Upper Extremity Strength impaired functionally, not completed due to abdominal pain ADL-Treatment Eating (QC): 3 (Pt requires assist bringing cup to mouth due to decreased UE strength.) Other Treatments Pt seen on acute floor, pt has multiple lines attached. Pt sit to stand from recliner chair with SBA, transfers to w/c with CGA. Pt propelled in w/c to ARU, pt states 10/10 pain. Pt requests to be transferred to bed upon arrival in ARU due to excessive pain. Pt requests pain medication remote, completes 2x during 30 minute evaluation. Pt transfers sit to stand from w/c to bed with SBA. Pt re quires assist adjusting in bed. Pt demonstrates grimacing during lowering HOB to bring head further up. Pt completes OT evaluation while in bed, denies completing any ADLs due to immense pain in abdomen. ADLs to follow. Pt left with call light in reach, nursing present. Education OT Patient Education: Correct positioning, Purpose of tx/functional activities, Safety issues, Transfer techniques, Use of adapted equipment Teaching Recipient: Patient Teaching Methods: Demonstration Response to Teaching: Return Demonstration OT Short Term Goals Short Term Goals Eating(FIM): 4 Upper Body Dressing(FIM): 2 Lower Body Dressing(FIM): 2 Additional Short Term Goals: 1-Demonstrate ADL Tasks, 2-Verbalize Understanding, 3-ImproveStrength/Carmina 1=Demonstrate adherence to instructed precautions during ADL tasks. 2=Patient will verbalize/demonstrate understanding of assistive devices/modifications for ADL. 3=Patient will improve strength/tolerance for activity to enable patient to perform ADL's. OT Tree Chipper Goals Shelter Goals Eating (QC): 6 Oral Hygiene (QC): 6 Shower/Bathe Self (QC): 5 Upper Body Dressing (QC): 6 Lower Body Dressing (QC): 6 On/Off Footwear (QC): 6 Toileting Hygiene (QC): 6 Toilet/Commode Transfer (QC): 6 Additional Goals: 1-Demonstrate ADL Tasks, 2-Verbalize Understanding, 3- ImproveStrength/Carmina 1=Demonstrate adherence to instructed precautions during ADL tasks. 2=Patient will verbalize/demonstrate understanding of assistive devices/modifications for ADL. 3=Patient will improve strength/tolerance for activity to enable patient to perform ADL's. OT Education/Plan Problem List/Assessment Assessment: Decreased Activ Tolerance, Decreased UE Strength, Impaired Bed Mobi lity, Impaired I ADL's, Impaired Self-Care Skills Discharge Recommendations Plan/Recommendations: Continue POC Comment D/c recommendations to be determined through length of stay Treatment Plan/Plan of Care Treatment,Training & Education: Yes Patient would benefit from OT for education, treatment and training to promote independence in ADL's, mobility, safety and/or upper extremity function for ADL's. Plan of Care: ADL Retraining, Caregiver Training, Concurrent Therapy, Functional Mobility, Group Exercise/Act as Ind, UE Funct Exercise/Act Treatment Duration: Jul 14, 2019 Frequency: At least 5 of 7 days/Wk (IRF) Estimated Hrs Per Day: 1.5 hours per day Agreement: Yes Rehab Potential: Guarded Time/GCodes Start Time: 11:00 Stop Time: 11:30 Total Time Billed (hr/min): 30 Billed Treatment Time 1, EVM (30) BRENNON HIGGINS OTR Jun 30, 2019 11:37
--- NOTE | 2019-06-30 11:38 | NUR ---
SPOKE WITH THE PATIENT ABOUT HER MEDICATIONS. WE WENT OVER THE EXT MED HX AND SHE VERIFIED HOW SHE TAKES THEM. SHE FILLED BACLOFEN 10MG #90 FOR 30 DAYS 06-09-19 BUT SHE STATES SHE IS NOT TAKING THIS. SHE STATES IT CAUSED CONFUSION AND SHE WAS WAKING UP IN OTHER PARTS OF HER HOUSE AND FALLING. SHE HAS NOT HAD A CHANGE TO DISCUSS THIS WITH HER DRGeeta MARISCAL BUT SHE IS NOT TAKING IT SO I DID NOT INCLUDE IT ON HER MED REC. SHE HAD FILLED FLEXERIL 10MG #30 FOR 15 DAYS 05-01-19 - SHE STATES SHE DID NOT HAVE NEGATIVE SIDE EFFECTS WITH FLEXERIL BUT SHE HAD BEEN ON IT FOR AWHILE AND DID NOT THINK IT WAS WORKING WELL ANYMORE. ACCORDING TO THE EXT MED HX, SHE LAST FILLED ROPINIROLE 05-08-19 #56 BID BUT SHE STATES SHE IS STILL TAKING 2 AT HS. I NOTED THE PAST DUE FILL DATE ON THE MED REC. SHE TAKES TYLENOL PRN AND PEPTIVA DAILY OTC.
--- NOTE | 2019-06-30 11:52 | Physical Therapy Progress Note ---
Therapy Progress Note PT evaluation attempted at 1130 this morning but patient refused due to pain. Encouragement did not convince her to participate. Patient states exactly "I am going to refuse therapy now". SAHIL TOVAR PT Jun 30, 2019 11:51
[2019-06-30] MEDS ORDERED: ONDANSETRON 4 MG/2 ML (SDV) Z0FRAN IVP PRN (12:30)
[2019-06-30] MEDS ORDERED: TPN IV SCH (12:30)
[2019-06-30] MEDS ORDERED: PANTOPRAZOLE INJECTION 200 MG in NS (IVPB) 100 ML IV SCH (12:36)
[2019-06-30] MEDS ORDERED: RT-ALBUTEROL SULF 2.5 MG/3 ML PRE-MIX VIAL INH PRN (12:36)
[2019-06-30] MEDS: LACTATED RINGERS 1,000 ML IV SCH (12:51)
[2019-06-30 12:59] VITALS: BP 137/83
--- NOTE | 2019-06-30 13:48 | NUR ---
RD ASSESSMENT PMHx: HTN; fibromyalgia; chronic UTI; DM PT INTERACTION: Pt was awake and pleasant during initial rehab nutrition assessment. Pt states current appetite is pretty poor, but it is getting better. Pt states following a regular diet at home, and states no issues with chewing/swallowing at this time. Pt states regular "bouts" of nausea, but no emesis. Note pt current on regimen of Zofran, per chart review. Pt states some issues with constipation. Note no BM has been recorded, per chart review. Pt states 100# wt loss, but did not attribute it to gastric bypass procedure in 2006. Note unable to determine recent wt hx, per chart review. Upon visual exam, pt appears to be very well-nourished with BMI of 33.7. Pt states current DM management is pretty good and last HbA1c was 7% (pt states taken last month). ABNORMAL NUTRITION-RELATED LAB VALUES: Hgb 8.9 (L); Hct 27 (L); Na 134 (L); cr 0.39 (L); Ca 7.8 (L); glu 181 (H) Est. kcal needs: 6949-3720 kcal (15-20 kcal/kg) Est. Pro needs: 92-110 g Pro (1.0-1.2 g Pro/kg) PES STATEMENT: Inadequate oral intake (NI-2.1) related to loss of appetite | nausea as evidenced by patient interview INTERVENTION: Continue with current diet order of Clear Liquid Diet. Advance to CHO 60g/m 2snack diet, when medically able. Encouraged pt to eat when able. MONITOR/EVALUATE: PO Intake; Plan of Care; Hydration Status; Weight Status; Lab Values Amador Santana, MS, RD, LD Ext. [phone]
--- NOTE | 2019-06-30 14:19 | Discharge Summary ---
Diagnosis/Chief Complaint Date of Admission Jun 30, 2019 at 11:15 Date of Discharge Discharge Date: Jun 30, 2019 Admission Diagnosis Gastric perforation Primary Care Gilma Maciel Jonathan Slot Router Discharge Diagnosis s/p Tyler patch for gastric perforation Discharge Summary Discharge Physical Exam Allergies: Coded Allergies: NSAIDS (Non-Steroidal Anti-Inflamma (Verified Adverse Reaction, Unknown, 12/15/18) UNABLE TO TAKE DUE TO GASTRIC SURG Vitals & I&Os Vital Signs Date Time Temp Pulse Resp B/P (MAP) Pulse Ox O2 Delivery O2 Flow Rate FiO2 06/30/19 12:59 36.8 111 20 137/83 100 Room Air General Appearance: No Apparent Distress, Obese Cardiovascular: Regular Rate, Rhythm, No Edema, No Gallop, No Murmur, Normal Peripheral Pulses Gastrointestinal: Abnormal Bowel Sounds (decreased) Extremity: Non Tender, No Calf Tenderness, No Pedal Edema Neurologic/Psychiatric: Alert, Oriented x3 Hospital Course Labs (last 24 hrs) Patient resulted labs reviewed. Discharge Home Medications: Active Scripts Active Reported Tylenol Extra Strength (Acetaminophen) 500 Mg Tablet 500-1,000 Mg PO Q4H PRN Ondansetron HCl 4 Mg Tablet 4 Mg PO TID PRN Lyrica (Pregabalin) 150 Mg Capsule 150 Mg PO BID Sertraline HCl 100 Mg Tablet 100 Mg PO HS [Peptiva] 1 Cap PO HS Ropinirole HCl 0.5 Mg Tablet 1 Mg PO HS LAST FILLED #56 05-08-19 TAKES 2 (0.5MG) TABLETS Topiramate 25 Mg Tablet 50 Mg PO HS TAKES 2 (25MG) TALBETS Januvia (Sitagliptin Phosphate) 100 Mg Tablet 100 Mg PO DAILY Metformin HCl 1,000 Mg Tablet 1,000 Mg PO BID Instructions to patient/family Please see electronic discharge instructions given to patient. ALEXA SOLIS MED STUDENT Jun 30, 2019 14:19
--- NOTE | 2019-06-30 14:28 | Discharge Summary ---
ALEXA SOLIS MED STUDENT 06/30/19 1428: Diagnosis/Chief Complaint Date of Admission Jun 24, 2019 at 10:30 Date of Discharge Jun 30, 2019 at 11:15 Admission Diagnosis GI perforation, Septic Shock Primary Care Gilma Maciel Leg Assembler Discharge Diagnosis s/p Tyler patch for GI perforation (1) Gastrointestinal perforation Status: Resolved Assessment & Plan: Assessment - 1. s/p Tyler patch Plan - 1. continue postsurgical protocol 2. monitor anemia (2) Septic shock Status: Resolved Assessment & Plan: Assessment: 1. Sepsis in the setting of GI perforation Plan: 1. continue piperacillin/tazobactam 4.5 mg IV at 120 ml @ 30 mls/hr q8H through 07/03/19 2. monitor CBC, symptoms of infection Discharge Summary Discharge Physical Exam Allergies: Coded Allergies: NSAIDS (Non-Steroidal Anti-Inflamma (Verified Adverse Reaction, Unknown, 12/15/18) UNABLE TO TAKE DUE TO GASTRIC SURG Vitals & I&Os Vital Signs Date Time Temp Pulse Resp B/P (MAP) Pulse Ox O2 Delivery O2 Flow Rate FiO2 06/30/19 12:59 36.8 111 20 137/83 100 Room Air General Appearance: No Apparent Distress, Obese Respiratory: Lungs Clear, Normal Breath Sounds, No Accessory Muscle Use, No Respiratory Distress Cardiovascular: Regular Rate, Rhythm, No Edema, No Gallop, No Murmur, Normal Peripheral Pulses Gastrointestinal: Abnormal Bowel Sounds (decreased) Extremity: Non Tender, No Calf Tenderness, No Pedal Edema Neurologic/Psychiatric: Alert, Oriented x3 Hospital Course Ms. Pena came to ER on 06/24/19 with complaints of generalized myalgia, weakness, lethargy, and altered mental status as reported by EMS, and reported having some nausea, vomiting, and diarrhea [address] showed thick-walled non-obstructed small bowel loops, possibly enteritis, new mild ascites, and mild anasarca. Underwent tyler patch for perforated gastric pouch. Since then she has reported symptoms of abdominal pain and fatigue, which have been improving. She has had her NG tube removed, remains on TPN, can start liquid sips. She has anemia, which has been stable. Had been participating in PT/OT, reporting some improvement in strength, has been discharged to rehab unit. Labs (last 24 hrs) Patient resulted labs reviewed. Discharge Home Medications: Active Scripts Active Reported Tylenol Extra Strength (Acetaminophen) 500 Mg Tablet 500-1,000 Mg PO Q4H PRN Ondansetron HCl 4 Mg Tablet 4 Mg PO TID PRN Lyrica (Pregabalin) 150 Mg Capsule 150 Mg PO BID Sertraline HCl 100 Mg Tablet 100 Mg PO HS [Peptiva] 1 Cap PO HS Ropinirole HCl 0.5 Mg Tablet 1 Mg PO HS LAST FILLED #56 05-08-19 TAKES 2 (0.5MG) TABLETS Topiramate 25 Mg Tablet 50 Mg PO HS TAKES 2 (25MG) TALBETS Januvia (Sitagliptin Phosphate) 100 Mg Tablet 100 Mg PO DAILY Metformin HCl 1,000 Mg Tablet 1,000 Mg PO BID Instructions to patient/family Please see electronic discharge instructions given to patient. DIONICIO TURNER DO 06/30/19 2108: Discharge Summary Discharge Physical Exam Allergies: Coded Allergies: NSAIDS (Non-Steroidal Anti-Inflamma (Verified Adverse Reaction, Unknown, 12/15/18) UNABLE TO TAKE DUE TO GASTRIC SURG ALEXA SOLIS MED STUDENT Jun 30, 2019 14:28 DIONICIO TURNER DO Jun 30, 2019 21:08
--- NOTE | 2019-06-30 14:32 | Physical Therapy Evaluation ---
PT Evaluation-General Medical Diagnosis Admission Date Jun 30, 2019 at 11:15 Medical Diagnosis: Laparoscopy/gastrointestinal perforation Onset Date: Jun 24, 2019 Therapy Diagnosis Therapy Diagnosis: impaired mobility, strength, endurance Height/Weight Height (Feet): 5 Height (Inches): 5.00 Weight (Pounds): 200 Weight (Ounces): 0.0 Precautions Precautions/Isolations: Fall Prevention, Standard Precautions Referral Physician: Karyn Mcgee DO Reason for Referral: Evaluation/Treatment Medical History Pertinent Medical History: DM Additional Medical History gastric bipass, hysteresctomy, fibromyalgia Reviewed History: Yes Social History Home: Single Level Current Living Status: Spouse (and children) Entry Into Home: Ramp PT Steps Into Home: 0 PT Steps Inside Home: 0 Prior Prior Level of Function SCALE: Activities may be completed with or without assistive devices. 3-Ftjsqjiryz-jyikhtr completes the activity by him/herself with no assistance from a helper. 5-Set-up or Clean-up Assistance-helper sets up or cleans up; patient completes activity. [place] assists only prior to or following the activity. 4-Supervision or Touching Assistance-helper provides verbal cues and/or touching/steadying and/or contact guard assistance as patient completes activity. Assistance may be provided throughout the activity or intermittently. 3-Partial/Moderate Assistance-helper does LESS THAN HALF the effort. Vulcan lifts, holds or supports trunk or limbs, but provides less than half the effort. 2-Substantial/Maximal Assistance-helper does MORE THAN HALF the effort. [place] lifts or holds trunk or limbs and provides more than half the effort. 9-Lijcbtyxc-clmqux does ALL the effort. Patient does none of the effort to complete the activity. Or, the assistance of 2 or more helpers is required for the patient to complete the activity. If activity was not attempted, code reason: 7-Patient Refused. 9-Not Applicable-not attempted and the patient did not perform the activity before the current illness, exacerbation or injury. 10-Not Attempted due to Environmental Limitations-(lack of equipment, weather restraints, etc.). 88-Not Attempted due to Medical Conditions or Safety Concerns. Bed Mobility: 6 Transfers (B,C,W/C): 6 Gait: 6 Stairs: 6 Indoor Mobility (Ambulation): Independent Stairs: Independent PT Evaluation-Current Subjective Patient in recliner pre tx, reluctantly agrees to PT, states her pain is a little better, is reluctant to rate her pain. Pt/Family Goals to be independent at home Objective Patient Orientation: Person, Place, Situation Attachments: Drains, IV ROM/Strength ROM Lower Extremities WNL Strength Lower Extremities 4/5 gross BLE Sensory Vision: Functional Hearing: Functional Sensation Right Lower Extremit: Intact Sensation Left Lower Extremity: Intact Transfers Roll Left to Right (QC): 2 Sit to Lying (QC): 2 Lying to Sitting/Side of Bed(Q: 2 Sit to Stand (QC): 4 Chair/Gyr-hd-Zrxns Xfer(QC): 4 Patient performs bed mobility with max assist, supine <-> sit max assist, sit <- > stand SBA, transfers SBA. Nurse comes into room and has to put a PICC line in. Patient stood from recliner and ambulated about 5' to the bed with SBA and got into bed for PICC line. Balance Sitting Static: Fair Sitting Dynamic: Fair Standing Static: Fair Standing Dynamic: Fair Assessment/Needs Patient has impaired mobility, strength, endurance. She has extreme pain in abdomen. Rehab Potential: Fair PT Short Term Goals Short Term Goals Time Frame: Jul 07, 2019 Gait Distance Comment: 50' Gait Assistive Device: FWW (SBA ) PT Half-Way Goals Half-Way Goals PT Half-Way Goals Time Frame: Jul 21, 2019 Sit to Lying (QC): 4 (SBA) Lying-Sitting on Side/Bed(QC): 4 (SBA) Sit to Stand (QC): 4 (SBA) Roll Left to Right (QC): 4 (SBA) Chair/Akw-ga-Cpwkj Xfer(QC): 4 (SBA) Car Transfer (QC): 4 (SBA) Distance: 150' Walk 10 feet (QC): 4 (SBA) Walk 10ft-Uneven Surface(QC): 4 (SBA) Walk 50ft with 2 Turns (QC): 4 (SBA) Walk 150 ft (QC): 4 (SBA) Gait Assistive Device: FWW # of Steps: 4 1 Step (curb) (QC): 4 4 Steps (QC): 4 Picking up an Object (QC): 4 PT Plan Problem List Problem List: Activity Tolerance, Functional Strength, Safety, Balance, Gait, Transfer, Bed Mobility, ROM Treatment/Plan Treatment Plan: Continue Plan of Care Treatment Plan: Bed Mobility, Education, Functional Activity Carmina, Functional Strength, Group Therapy, Gait, Safety, Therapeutic Exercise, Transfers Treatment Duration: Jul 21, 2019 Frequency: At least 5 of 7 days/Wk (IRF) Estimated Hrs Per Day: 1.5 hours per day Patient and/or Family Agrees t: Yes Safety Risks/Education Patient Education: Gait Training, Transfer Techniques, Correct Positioning, Safety Issues Teaching Recipient: Patient Teaching Methods: Demonstration, Discussion Response to Teaching: Reinforcement Needed Discharge Recommendations Plan Patient will perform bed mobility and transfer training, balance and endurance training, functional strengthening, stair training, gait training, and education, to improve functional mobility and independence at home. Therapy Discharge Recommendati: Other, See Comments (home with family) Time/GCodes Time In: 1405 Time Out: 1420 Total Billed Treatment Time: 15 Total Billed Treatment 1 visit WILNER Somers' SAHIL TOVAR PT Jun 30, 2019 14:32
--- NOTE | 2019-06-30 14:45 | Occupational Ther Daily Note ---
OT Current Status-Daily Note Subjective Pt seen in bed, nursing present. Pt requests desire for bathroom. Pt agreeable to OT treatment session. Mental Status/Objective Patient Orientation: Normal For Age Attachments: IV ADL-Treatment Therapy Code Descriptions/Definitions Functional [place] Measure: 0=Not Assessed/NA 4=Minimal Assistance 1=Total Assistance 5=Supervision or Setup 2=Maximal Assistance 6=Modified [place] 3=Moderate Assistance 7=Complete IndependenceSCALE: Activities may be completed with or without assistive devices. 5-Fodwrebleu-ngrqiia completes the activity by him/herself with no assistance from a helper. 5-Set-up or Clean-up Assistance-helper sets up or cleans up; patient completes activity. [place] assists only prior to or following the activity. 4-Supervision or Touching Assistance-helper provides verbal cues and/or touching/steadying and/or contact guard assistance as patient completes activity. Assistance may be provided throughout the activity or intermittently. 3-Partial/Moderate Assistance-helper does LESS THAN HALF the effort. [place] lifts, holds or supports trunk or limbs, but provides less than half the effort. 2-Substantial/Maximal Assistance-helper does MORE THAN HALF the effort. [place] lifts or holds trunk or limbs and provides more than half the effort. 5-Fafbghlvm-inttcw does ALL the effort. Patient does none of the effort to complete the activity. Or, the assistance of 2 or more helpers is required for the patient to complete the activity. If activity was not attempted, code reason: 7-Patient Refused. 9-Not Applicable-not attempted and the patient did not perform the activity before the current illness, exacerbation or injury. 10-Not Attempted due to Environmental Limitations-(lack of equipment, weather restraints, etc.). 88-Not Attempted due to Medical Conditions or Safety Concerns. Eating (QC): 6 (Pt eating jello/ drinking clear liquids without assist.) Oral Hygiene (QC): 5 (Pt demonstrates difficulty with opening toothpaste, multiple attempts before success. Able to brush teeth at chair with s/u for water and materials.) Shower/Bathe Self (QC): 2 (Pt completes sponge bath with warm washcloths. Pt completes UB and thighs without assist. Pt requires assist with LE, feet, back and bottom with SBA in stance with FWW.) Upper Body Dressing (QC): 5 (Pt completes in chair with s/u) Lower Body Dressing (QC): 2 (Pt max A for donning) Toileting Hygiene (QC): 4 (CGA in stance) Toilet Transfer (QC): 5 (SBA, use of grab bars for transfer) On/off footwear: QC 2 Other Treatment Pt states desire for bathroom. Pt requires encouragement to participate in showering task. Pt sits in recliner chair to complete, SBA to CGA for functional transfers. Pt completes sponge bath, c/o pain and requires pain administration 1x through session with pain administering remote. Pt unable to complete R sock donning, requires max A; pt completes L sock donning. Pt continues eating, states throat is a bit "uncomfortable." Upon questioning of 's abilities to care for pt, pt states is physically capable but unwilling to assist. Pt was living with parents prior to hospitalization to care for parents, was IND with I/ADLs. Pt states her pain is a bit better, completes UE MMT: BUE 4/5 MMT. Pt educated of ARU expectations and OT role. Pt left in recliner chair with call light in reach and all needs met. Education OT Patient Education: Correct positioning, Energy conservation, Modified ADL techniques, Purpose of tx/functional activities, Rehab process, Safety issues, Transfer techniques Teaching Recipient: Patient Teaching Methods: Demonstration, Discussion Response to Teaching: Verbalize Understanding, Return Demonstration OT Short Term Goals Short Term Goals Eating(FIM): 4 Upper Body Dressing(FIM): 2 Lower Body Dressing(FIM): 2 Additional Short Term Goals: 1-Demonstrate ADL Tasks, 2-Verbalize Understanding, 3-ImproveStrength/Carmina 1=Demonstrate adherence to instructed precautions during ADL tasks. 2=Patient will verbalize/demonstrate understanding of assistive devices/modifications for ADL. 3=Patient will improve strength/tolerance for activity to enable patient to perform ADL's. OT Correction Goals Back Hand Goals Eating (QC): 6 Oral Hygiene (QC): 6 Shower/Bathe Self (QC): 5 Upper Body Dressing (QC): 6 Lower Body Dressing (QC): 6 On/Off Footwear (QC): 6 Toileting Hygiene (QC): 6 Toilet/Commode Transfer (QC): 6 Additional Goals: 1-Demonstrate ADL Tasks, 2-Verbalize Understanding, 3- ImproveStrength/Carmina 1=Demonstrate adherence to instructed precautions during ADL tasks. 2=Patient will verbalize/demonstrate understanding of assistive devices/modifications for ADL. 3=Patient will improve strength/tolerance for activity to enable patient to perform ADL's. OT Education/Plan Problem List/Assessment Assessment: Decreased Activ Tolerance, Decreased UE Strength, Impaired I ADL's, Impaired Self-Care Skills Discharge Recommendations Plan/Recommendations: Continue POC Treatment Plan/Plan of Care Treatment,Training & Education: Yes Patient would benefit from OT for education, treatment and training to promote independence in ADL's, mobility, safety and/or upper extremity function for ADL's. Plan of Care: ADL Retraining, Caregiver Training, Concurrent Therapy, Functional Mobility, Group Exercise/Act as Ind, UE Funct Exercise/Act Treatment Duration: Jul 14, 2019 Frequency: At least 5 of 7 days/Wk (IRF) Estimated Hrs Per Day: 1.5 hours per day Agreement: Yes Rehab Potential: Guarded Time/GCodes Start Time: 13:00 Stop Time: 14:00 Total Time Billed (hr/min): 60 Billed Treatment Time 1 ADLx4 (60) BRENNON HIGGINS OTR Jun 30, 2019 14:45
--- NOTE | 2019-06-30 14:53 | ST Cognitive Linguistic Eval ---
Speech Evaluation-General Medical Diagnosis Laparoscopy/gastrointestinal perforation Onset Date: Jun 24, 2019 Therapy Diagnosis Therapy Diagnosis: Cognitive-communication Referral Referring Physician: Dr. Mcgee Reason for Referral: Evaluation/Treatment Medical History Pertinent Medical History: DM Reviewed History: Yes Social History Current Living Status: Spouse (and children) Speech PLF-Current Status Prior Level of Function Patient lived at home with her where she was independent with ADL's. Subjective Patient was cooperative with the cognitive assessment. Language Eval: Auditory Comprehends Simple Yes/No Ques: Functional Indent/Objects Multiple Birch: Functional Ident/Pics in Multiple Birch: Functional Follows 1-Step Commands: Functional Follows Complex Directions: Functional Follows General Conversations: Functional Language Eval: Verbal Language Completes Spontaneous Greeting: Functional Produces Auto, Serial Info: Functional Imitates Simple Words/Phrases: Functional Word Finding: Functional Requests Basic Needs: Functional States Basic Personal Info: Functional Expresses Complex Ideas: Functional Objective Cognitive Domain Attention: WNL Memory: WNL Problem Solving: Functional Executive Functions: WNL Visuospatial Skills: WNL Composite Severity Rating: WNL Clock Drawing Severity Rating: WNL Objective Formal/Standardized Tests [facility] Mental Status ([facility]) Results , within normal limits Oral Motor/Speech Production Within Functional Limits Impression The patient is a pleasant 49 year old female who was admitted to the ARU s/p abdominal surgery. The patient was given the SLUMS at bedside with results of . The patient does not require skilled ST at this time. Speech Patient Assess Expression of Ideas/Wants: Expression (4) Understanding Verbal Content: Understands (4) Brief Interview-Mental Status: Yes Repetition of Three Words: Three (3) Temporal Orientation: Year: Correct (3) Temporal Orientation: Month: Accurate within 5 days(2) Temporal Orientation: Day: Correct (1) Recall : Wear to say "Sock": Yes, no cue required (2) Recall : Color: Yes, no cue required (2) Recall : Bed: Yes,after cueing (1) Memory/Recall Ability: Current season, That he or she is in a hsp/hsp unit Speech-Plan Patient/Family Goals Patient/Family Goals: The patient plans on returning to her home with her . Treatment Plan Speech Therapy Treatment Plan: Discontinue ST The patient does not require skilled ST at this time. Treatment Duration: Jun 30, 2019 Frequency: 1 time per week Estimated Hrs Per Day: .25 hour per day Rehab Potential: Fair Barriers to Learning: None identified Pt/Family Agrees to Plan: Yes Safety Risks/Education Teaching Recipient: Patient Teaching Methods: Discussion Response to Teaching: Verbalize Understanding Education Topics Provided: Safety within her room and communication of wants/needs Time Speech Therapy Time In: 12:45 Speech Therapy Time Out: 13:00 Total Billed Time: 15 Billed Treatment Time 1, ELOY Tran Jun 30, 2019 14:53
[2019-06-30 15:02] VITALS: BP 137/83
[2019-06-30] MEDS: PIPERACILLIN/TAZOBACTAM (BULK) 4.5 GM in NS (IVPB) 100 ML IV SCH ×2 (16:00→21:08)
[2019-06-30] MEDS: SODIUM ACETATE IV SCH ×11 (18:04)
[2019-06-30] MEDS: [UNRECOGNIZED DRUG - OTHER] IV SCH ×11 (18:04)
[2019-06-30] MEDS: SODIUM CHLORIDE IV SCH ×11 (18:04)
[2019-06-30] MEDS: ENOXAPARIN 40 MG/0.4 ML (LOVENOX) SYR SC SCH (18:08)
[2019-06-30 18:17] VITALS: BP 151/85
[2019-06-30] MEDS: inSUlin ASPART (NovoLOG) 1 UNIT/0.01 ML (CHARGE PER UNIT) SC SCH ×2 (18:23→23:47)
[2019-06-30] MEDS: RT-ALBUTEROL SULF 2.5 MG/3 ML PRE-MIX VIAL INH SCH (20:51)
--- NOTE | 2019-06-30 20:52 | NUR ---
patient refused SVN BT due to being uncomfortable and in pain
[2019-06-30] MEDS: PANTOPRAZOLE 40 MG (PROTONIX) VIAL IV SCH (21:08)
[2019-06-30] MEDS: morphine PCA 100 MG/100 ML BAG IV PRN (21:32)
[2019-07-01] MEDS: LACTATED RINGERS 1,000 ML IV SCH ×2 (01:23→13:48)
[2019-07-01] MEDS: PIPERACILLIN/TAZOBACTAM (BULK) 4.5 GM in NS (IVPB) 100 ML IV SCH ×3 (04:12→21:55)
[2019-07-01 05:50] VITALS: BP 160/87
[2019-07-01 07:24] LABS: BASOPHILS % (AUTO) 0 % (0-10); EOSINOPHILS # (AUTO) 0.1 10^3/uL (0.0-0.3); EOSINOPHILS % (AUTO) 1 % (0-10); HEMATOCRIT 25 % (35-52); HEMOGLOBIN 8.1 G/DL (11.5-16.0); LYMPHOCYTES # (AUTO) 0.7 X 10^3 (1.0-4.0); LYMPHOCYTES % (AUTO) 14 % (12-44); MEAN CORPUSCULAR HEMOGLOBIN 27 PG (25-34); MEAN CORPUSCULAR HGB CONC 32 G/DL (32-36); MEAN CORPUSCULAR VOLUME 85 FL (80-99); MEAN PLATELET VOLUME 9.4 FL (7.4-10.4); MONOCYTES # (AUTO) 0.4 X 10^3 (0.0-1.0); MONOCYTES % (AUTO) 8 % (0-12); NEUTROPHILS # (AUTO) 3.8 X 10^3 (1.8-7.8); NEUTROPHILS % (AUTO) 76 % (42-75); PLATELET COUNT 260 10^3/uL (130-400); RED CELL DISTRIBUTION WIDTH 15.6 % (10.0-14.5)
[2019-07-01 08:30] LABS: ALANINE AMINOTRANSFERASE 11 U/L (0-55); ALKALINE PHOSPHATASE 95 U/L (40-136); BILIRUBIN,TOTAL 0.3 MG/DL (0.1-1.0); BUN/CREATININE RATIO 21; CALCIUM 7.7 MG/DL (8.5-10.1); CARBON DIOXIDE 25 MMOL/L (21-32); CHLORIDE 103 MMOL/L (98-107); CREATININE SERUM 0.58 MG/DL (0.60-1.30); GFR ESTIMATED > 60; GLUCOSE 183 MG/DL (70-105); POTASSIUM 4.5 MMOL/L (3.6-5.0); SODIUM 135 MMOL/L (135-145); TOTAL PROTEIN 4.8 GM/DL (6.4-8.2)
--- NOTE | 2019-07-01 08:30 | PM&R H&P / Post Admit Assess ---
History of Present Illness HPI/Chief Complaint CC: Debility requiring inpatient rehab admission HPI: This is a 49yoWF who is s/p septic shock ICU status emergent surgery for gastric perforation maintained on TPN and severe weakness requiring inpatient rehab prior to returning home. Currently she is able to tolerate a few ounces of intake at a time but Dr. Taylor wants her to go very slowly. Pain is better controlled and she is willing to participate in PT in order to ultimately return home. PLOF was independent. Patient does have situational depression currently and we will aggressively treat this to aid in recovery. Source: patient, RN/MD, old records Exam Limitations: no limitations Date Seen 07/01/19 Time Seen by a Provider: 08:00 Attending Physician Karyn Mcgee DO [facility] Referring Physician Date of Admission Jun 30, 2019 at 11:15 Home Medications & Allergies Home Medications Reviewed patient Home Medication Reconciliation performed by pharmacy medication reconciliations armorer technician and/or nursing. Patients Allergies have been reviewed. Allergies Allergies Coded Allergies NSAIDS (Non-Steroidal Anti-Inflamma (Verified Adverse Reaction, Unknown, 12/15/18) UNABLE TO TAKE DUE TO GASTRIC SURG Past [id number]-[id number] Hx Past Med/Social Hx: Reviewed Nursing Past Med/Soc Hx, Reviewed and Corrections made Patient Social History Marrital Status: single Employed/Student: unemployed Alcohol Use: Denies Use Recreational Drug Use: No Smoking Status: Never a Smoker 2nd Hand Smoke Exposure: No Physical Abuse Screen: No Sexual Abuse: No Recent Foreign Travel: No Contact w/other who traveled: No Recent Hopitalizations: No Recent Infectious Disease Expo: No Immunizations Up To Date Pediatric: Yes Date of Pneumonia Vaccine: Jun 19, 2019 Date of Influenza Vaccine: Jun 19, 2019 Seasonal Allergies Seasonal Allergies: Yes Past Medical History Surgeries: Abdominal, Appendectomy, Gallbladder, Hysterectomy, Oophorectomy Currently Using CPAP: No Currently Using BIPAP: No Cardiac: Hypertension Neurological: Headaches /Migraines Reproductive: No Sexually Transmitted Disease: No HIV/AIDS: No Female Reproductive Disorders: Polycystic Ovarian Dis Hysterectomy Genitourinary: Kidney Infection, UTI (peds) Gastrointestinal: Hemorrhoids Musculoskeletal: Fibromyalgia Endocrine: Diabetes, Non-Insulin dep Are Your Blood Sugars Over 250: No Loss of Vision: Denies Hearing Impairment: Denies Psychosocial: Anxiety, Depression History of Blood Disorders: No Adverse Reaction to Blood Ayon: No Family History Arthritis 19 FATHER 19 MOTHER Cataracts 19 FATHER 19 MOTHER Completed stroke Deafness or hearing loss 19 FATHER 19 MOTHER Diabetes mellitus 19 FATHER 19 MOTHER Fibrocystic disease of breast 19 MOTHER Headache disorder 19 FATHER Hypercholesterolemia 19 FATHER 19 MOTHER Hypertension 19 FATHER 19 MOTHER Respiratory disorder 19 FATHER Thyroid disease 19 MOTHER Visual disorder 19 FATHER 19 MOTHER No Pertinent Family Hx Review of Systems Constitutional: see HPI, weakness EENTM: no symptoms reported Respiratory: no symptoms reported Cardiovascular: no symptoms reported Gastrointestinal: abdominal pain Genitourinary: no symptoms reported Musculoskeletal: back pain, joint pain Skin: no symptoms reported Psychiatric/Neurological: Anxiety, Depressed, Emotional Problems All Other Systems Reviewed Negative Unless Noted: Yes Physical Exam Exam Vital Signs Vital Signs Date Time Temp Pulse Resp B/P (MAP) Pulse Ox O2 Delivery O2 Flow Rate FiO2 07/01/19 06:22 18 07/01/19 05:50 36.4 98 160/87 (111) 97 Room Air Capillary Refill : General Appearance: No Apparent Distress, WD/WN, Chronically ill, Obese HEENT: PERRL/EOMI, Normal ENT Inspection, Pharynx Normal, Moist Mucous Membranes Neck: Full Range of Motion, Normal Inspection, Non Tender Respiratory: Lungs Clear, Normal Breath Sounds, No Accessory Muscle Use, No Respiratory Distress Cardiovascular: Regular Rate, Rhythm, No Edema, No Gallop, No JVD, No Murmur, Normal Peripheral Pulses Gastrointestinal: Non Tender, Soft, Abnormal Bowel Sounds (decreased) Back: Normal Inspection, No CVA Tenderness, No Vertebral Tenderness Extremity: Normal Capillary Refill, Normal Inspection, Normal Range of Motion, Non Tender, No Calf Tenderness, No Pedal Edema Neurologic/Psychiatric: Alert, Oriented x3, No Motor/Sensory Deficits, nnps II- XII Norm as Tested, Depressed Affect, Motor Weakness (generalized) Skin: Normal Color, Warm/Dry Lymphatic: No Adenopathy Results Results/Procedures Labs Laboratory Tests 07/01/19 06:31 Patient resulted labs reviewed. Assessment/Plan Assessment and Plan Assess & Plan/Chief Complaint Assessment: Severe debility s/p septic shock s/p gastric perforation s/p gastric bypass remotely Anemia Hyperglycemia Depression Post op ileus On TPN Plan: Monitor closely TPN PO intake Pain control (1) Septic shock Status: Resolved Resolution Date/Time: 06/30/19 @ 14:48 (2) Gastrointestinal perforation Status: Resolved (3) Nausea and vomiting Status: Acute (4) On total parenteral nutrition (5) Ileus following gastrointestinal surgery (6) Anemia (7) Hyperglycemia (8) Depressed Post Admission Physician Asses Date seen by provider: Jul 01, 2019 Time seen by provider: 08:00 Admisison Dx: (1) Septic shock Status: Resolved The preadmission screen agrees with the post admission assessment that the patient is a good candidate for inpatient rehabilitation. The patient will have a comprehensive program of inpatient rehabilitation with a goal of maximizing level of functional independence prior to discharge home with family. The patient will have PT/OT ninety minutes per day, each discipline, five days a week for gait, strengthening, conditioning, balance, ADLs, any patient/family/caregiver training as necessary. Speech therapy to do cognitive assessment and treat as indicated. Rehabilitation nursing to assist with bowel, bladder, skin, wound care, medication administration, pain management. Computer Forensics Analyst to assist with discharge planning, community reentry. SCD's for DVT prophylaxis. She appears to be well motivated to participate in three hours of therapy a day. She should be able to tolerate three hours of therapy a day from a medical [facility]. She should benefit from the three hours of therapy a day. She has a reasonable discharge plan, reasonable discharge rehabilitation goals and a supportive family. She has various comorbidities that need to be closely monitored with medications and treatments adjusted on a daily basis as needed. These include: [] Barriers to discharge for this patient who had been independent prior to this are for her to be modified independent to supervision for ADLs and mobility skills prior to discharge home with family, so as to lessen the burden of the caregivers. Risks for this patient include: 1. Fall 2. Fracture 3. DVT 4. Pulmonary embolism 5. Wound infection 6. Skin breakdown 7. Contractures 8. Poorly controlled pain 9. Urinary retention 10. UTI 11. Respiratory infection 12. Aspiration Estimated Length of Stay: 7 days Prognosis: Rehab prognosis appears good for goal of discharge home with family modified independent to supervision for ADLs and mobility skills. KARYN MCGEE DO Jul 01, 2019 08:29
[2019-07-01] MEDS: inSUlin ASPART (NovoLOG) 1 UNIT/0.01 ML (CHARGE PER UNIT) SC SCH ×4 (08:31→23:27)
--- NOTE | 2019-07-01 09:14 | Physical Therapy Daily Note ---
PT Daily Note-Current Subjective Pt. agrees to Rx, wants to sit up in recliner for breakfast after walking. States she had a bad night and did not sleep but feels so much better this morning Pain Location: No Pain Reported Mental Status Patient Orientation: Normal For Age Attachments: Drains, IV (multiple) Transfers SCALE: Activities may be completed with or without assistive devices. 3-Corbcezbkx-cknthev completes the activity by him/herself with no assistance fr om a helper. 5-Set-up or Clean-up Assistance-helper sets up or cleans up; patient completes activity. [place] assists only prior to or following the activity. 4-Supervision or Touching Assistance-helper provides verbal cues and/or touching/steadying and/or contact guard assistance as patient completes activity. Assistance may be provided throughout the activity or intermittently. 3-Partial/Moderate Assistance-helper does LESS THAN HALF the effort. [place] lifts, holds or supports trunk or limbs, but provides less than half the effort. 2-Substantial/Maximal Assistance-helper does MORE THAN HALF the effort. [place] lifts or holds trunk or limbs and provides more than half the effort. 6-Pyyzyrsho-ttxvyl does ALL the effort. Patient does none of the effort to complete the activity. Or, the assistance of 2 or more helpers is required for the patient to complete the activity. If activity was not attempted, code reason: 7-Patient Refused. 9-Not Applicable-not attempted and the patient did not perform the activity before the current illness, exacerbation or injury. 10-Not Attempted due to Environmental Limitations-(lack of equipment, weather restraints, etc.). 88-Not Attempted due to Medical Conditions or Safety Concerns. Transfers (B, C, W/C): 5 Roll Left to Right (QC): 5 Sit to Stand (QC): 5 Car Transfer (QC): 5 pt. sup to sit by putting head of bed up Gait Training Does the Patient Walk?: Yes Gait: 5 Walk 10 feet (QC): 5 Walk 50 ft with 2 Turns(QC): 5 Walk 150 ft (QC): 5 Gait Persons Needed: 1 Gait Assistive Device: FWW slow, careful, flexed over FWW, needs assist only for IVs Exercises Seated Therapy Exercises: Ankle pumps, Sit to stand, Long arc quads, Hip flexion, Hip abd/add Seated Reps: 15 Treatments toileted SBA to Mod I, in out car TRF SBA, safe technique Assessment Current Status: Good Progress PT Short Term Goals Short Term Goals Time Frame: Jul 07, 2019 Gait Distance Comment: 50' Gait Assistive Device: FWW (SBA ) PT Human Relations Manager Goals Human Relations Manager Goals PT Custodial Goals Time Frame: Jul 21, 2019 Sit to Lying (QC): 4 (SBA) Lying-Sitting on Side/Bed(QC): 4 (SBA) Sit to Stand (QC): 4 (SBA) Roll Left to Right (QC): 4 (SBA) Chair/Efw-ma-Syzsj Xfer(QC): 4 (SBA) Car Transfer (QC): 4 (SBA) Distance: 150' Walk 10 feet (QC): 4 (SBA) Walk 10ft-Uneven Surface(QC): 4 (SBA) Walk 50ft with 2 Turns (QC): 4 (SBA) Walk 150 ft (QC): 4 (SBA) Gait Assistive Device: FWW # of Steps: 4 1 Step (curb) (QC): 4 4 Steps (QC): 4 Picking up an Object (QC): 4 PT Plan Treatment/Plan Treatment Plan: Continue Plan of Care Treatment Plan: Bed Mobility, Education, Functional Activity [place], Functional Strength, Group Therapy, Gait, Safety, Therapeutic Exercise, Transfers Treatment Duration: Jul 21, 2019 Frequency: At least 5 of 7 days/Wk (IRF) Estimated Hrs Per Day: 1.5 hours per day Patient and/or Family Agrees t: Yes Safety Risks/Education Patient Education: Gait Training, Transfer Techniques, Correct Positioning, Disease Process, Safety Issues Teaching Recipient: Patient Teaching Methods: Demonstration, Discussion Response to Teaching: Verbalize Understanding, Return Demonstration, Reinforcement Needed Time/GCodes Time In: 830 Time Out: 855 Total Billed Treatment Time: 25 Total Billed Treatment 1,GT15,FA10 PALMER JARAMILLO WORKDAY DIRECTOR Jul 01, 2019 09:14
[2019-07-01 09:24] VITALS: BP 147/77
[2019-07-01] MEDS: PANTOPRAZOLE 40 MG (PROTONIX) VIAL IV SCH ×2 (09:29→20:09)
--- NOTE | 2019-07-01 10:45 | NUR ---
Call to [facility]ir in Pharmacy re new order of Diflucan. Addendum: 07/01/19 at 1057 by VASHTI STEPHENSON RN Jaimr states that the Diflucan is compatible w the L/R & M/S to jud.
[2019-07-01] MEDS: FLUCONAZOLE 200 MG/100 ML 100 ML IV SCH (10:52)
--- NOTE | 2019-07-01 13:00 | PM&R Progress Note ---
Subjective HPI/CC On Admission Date Seen by Provider: Jul 01, 2019 Time Seen by Provider: 11:00 CC: Debility requiring inpatient rehab admission HPI: This is a 49yoWF who is s/p septic shock ICU status emergent surgery for ga stric perforation maintained on TPN and severe weakness requiring inpatient rehab prior to returning home. Currently she is able to tolerate a few ounces of intake at a time but Dr. Taylor wants her to go very slowly. Pain is better controlled and she is willing to participate in PT in order to ultimately return home. PLOF was independent. Patient does have situational depression currently and we will aggressively treat this to aid in recovery. Subjective/Events-last exam Patient doing pretty well Had some urinary incontinence because she was not able to get to the bathroom soon enough Overall pain is about the same Had a headache from caffeine withdrawal so she is drinking tea 2 OFE drains are still in place Dr. 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 Maintained on TPN Review of Systems General: Fatigue Gastrointestinal: Abdominal Pain Objective Exam Vital Signs Vital Signs Date Time Temp Pulse Resp B/P (MAP) Pulse Ox O2 Delivery O2 Flow Rate FiO2 07/01/19 09:24 36.7 89 20 147/77 (100) 99 Room Air Capillary Refill : General Appearance: No Apparent Distress, WD/WN, Chronically ill, Obese HEENT: PERRL/EOMI, Normal ENT Inspection, Pharynx Normal, Moist Mucous Membranes Neck: Full Range of Motion, Normal Inspection, Non Tender Respiratory: Lungs Clear, Normal Breath Sounds, No Accessory Muscle Use, No Respiratory Distress Cardiovascular: Regular Rate, Rhythm, No Edema, No Gallop, No JVD, No Murmur, Normal Peripheral Pulses Gastrointestinal: Non Tender, Soft, Abnormal Bowel Sounds (decreased) Back: Normal Inspection, No CVA Tenderness, No Vertebral Tenderness Extremity: Normal Capillary Refill, Normal Inspection, Normal Range of Motion, Non Tender, No Calf Tenderness, No Pedal Edema Neurologic/Psychiatric: Alert, Oriented x3, No Motor/Sensory Deficits, welding manager II- XII Norm as Tested, Depressed Affect, Motor Weakness (generalized) Skin: Normal Color, Warm/Dry Lymphatic: No Adenopathy Results/Procedures Lab Laboratory Tests 07/01/19 06:31 Patient resulted labs reviewed. FIM Transfers Therapy Code Descriptions/Definitions Functional [place] Measure: 0=Not Assessed/NA 4=Minimal Assistance 1=Total Assistance 5=Supervision or Setup 2=Maximal Assistance 6=Modified [place] 3=Moderate Assistance 7=Complete IndependenceSCALE: Activities may be completed with or without assistive devices. 8-Wokubpeloq-oygueoc completes the activity by him/herself with no assistance from a helper. 5-Set-up or Clean-up Assistance-helper sets up or cleans up; patient completes activity. [place] assists only prior to or following the activity. 4-Supervision or Touching Assistance-helper provides verbal cues and/or touching/steadying and/or contact guard assistance as patient completes activity. Assistance may be provided throughout the activity or intermittently. 3-Partial/Moderate Assistance-helper does LESS THAN HALF the effort. [place] lifts, holds or supports trunk or limbs, but provides less than half the effort. 2-Substantial/Maximal Assistance-helper does MORE THAN HALF the effort. [place] lifts or holds trunk or limbs and provides more than half the effort. 1-Kbwjtxzsh-kkvciw does ALL the effort. Patient does none of the effort to complete the activity. Or, the assistance of 2 or more helpers is required for the patient to complete the activity. If activity was not attempted, code reason: 7-Patient Refused. 9-Not Applicable-not attempted and the patient did not perform the activity before the current illness, exacerbation or injury. 10-Not Attempted due to Environmental Limitations-(lack of equipment, weather restraints, etc.). 88-Not Attempted due to Medical Conditions or Safety Concerns. Transfers (B, C, W/C) (FIM): 5 Roll Left to Right (QC): 5 Sit to Lying (QC): 2 Sit to Stand (QC): 5 Chair/Cfg-qk-[place] Xfer(QC): 4 Car Transfer (QC): 5 Gait Training Does the Patient Walk?: Yes Gait (FIM): 5 Walk 10 feet (QC): 5 Walk 50 ft with 2 Turns(QC): 5 Walk 150 ft (QC): 5 Gait Persons Needed: 1 Gait Assistive Device: FWW ADL-Treatment Eating (QC): 6 (Pt eating jello/ drinking clear liquids without assist.) Oral Hygiene (QC): 5 (Pt demonstrates difficulty with opening toothpaste, multiple attempts before success. Able to brush teeth at chair with s/u for water and materials.) Shower/Bathe Self (QC): 2 (Pt completes sponge bath with warm washcloths. Pt completes UB and thighs without assist. Pt requires assist with LE, feet, back and bottom with SBA in stance with FWW.) Upper Body Dressing (QC): 5 (Pt completes in chair with s/u) Lower Body Dressing (QC): 2 (Pt max A for donning) Toileting Hygiene (QC): 4 (CGA in stance) Toilet Transfer (QC): 5 (SBA, use of grab bars for transfer) Assessment/Plan Assessment and Plan Assess & Plan/Chief Complaint Assessment: Severe debility s/p septic shock s/p gastric perforation s/p gastric bypass remotely Anemia Hyperglycemia Depression Post op ileus On TPN Plan: Monitor closely TPN PO intake Pain control (1) Septic shock Status: Resolved Resolution Date/Time: 06/30/19 @ 14:48 (2) Gastrointestinal perforation Status: Resolved (3) Nausea and vomiting Status: Acute (4) Ileus following gastrointestinal surgery (5) On total parenteral nutrition (6) Anemia (7) Hyperglycemia (8) Depressed DIONICIO TURNER DO Jul 01, 2019 13:00
--- NOTE | 2019-07-01 13:37 | NUR ---
Upon scanning scheduled Luz, comes up saying, that this is for a different pt. Label does have Dr. Taylor on it as ordering. Call placed to pharmacy & notified, tubed med down to pharmacy for them to check.
[2019-07-01] MEDS ORDERED: CALCIUM CARBONATE 500 MG (TUMS) TAB.CHEW PO PRN (14:15)
[2019-07-01] MEDS ORDERED: MELATONIN 3 MG TABLET PO PRN (14:15)
[2019-07-01] MEDS ORDERED: diphenhydrAMINE 25 MG TAB (BENADRYL) PO PRN (14:15)
--- NOTE | 2019-07-01 15:27 | Progress Note - Surgery ---
Subjective Date Seen by a Provider: Jul 01, 2019 Time Seen by a Provider: 15:21 Subjective/Events-last exam Patient states she's doing okay. She is taking some sips of liquids and doing okay with them. No color of intake in drainage bulbs. Still with some abdominal pain, but improving. Participating in rehab activities she states. Denies n/v fever sweats chills shortness of breath or chest pain at this time. On TPN. Protonix BID IV Objective Exam Vital Signs Date Time Temp Pulse Resp B/P (MAP) Pulse Ox O2 Delivery O2 Flow Rate FiO2 07/01/19 09:24 36.7 89 20 147/77 (100) 99 Room Air 07/01/19 06:22 18 07/01/19 05:50 36.4 98 18 160/87 (111) 97 Room Air 06/30/19 20:51 98 Room Air 06/30/19 20:00 98 Room Air 06/30/19 19:57 100 Room Air 06/30/19 18:17 36.4 98 18 151/85 (107) 97 Room Air I & O 07/01/19 07:00 Intake Total 1845 ml Output Total 2775 ml Balance -930 ml Capillary Refill : General Appearance: No Apparent Distress, WD/WN, Chronically ill, Obese HEENT: PERRL/EOMI, Normal ENT Inspection, Pharynx Normal, Moist Mucous Membranes Neck: Full Range of Motion, Normal Inspection, Non Tender Respiratory: Chest Non Tender, No Accessory Muscle Use, No Respiratory Distress Cardiovascular: Regular Rate, Rhythm, Normal Peripheral Pulses Peripheral Pulses: 0 Carotid (R), 0 Carotid (L), 0 Femoral (R), 0 Femoral (L), 0 Dorsalis Pedis (R), 0 Left Dors-Pedis (L), 0 Radial Pulses (R), 0 Radial Pulses (L) Gastrointestinal: soft, tenderness (incisional, c/d/i trae drains serous) Extremity: Normal Capillary Refill, Normal Inspection, Normal Range of Motion, Non Tender, No Calf Tenderness, No Pedal Edema Neurologic/Psychiatric: Alert, Oriented x3, No Motor/Sensory Deficits, documentation consultant II- XII Norm as Tested, Depressed Affect, Motor Weakness (overall weakness) Skin: Normal Color, Warm/Dry Lymphatic: No Adenopathy Results Lab Laboratory Tests 06/30/19 18:15: Glucometer 262H 06/30/19 23:43: Glucometer 115H 07/01/19 06:31: White Blood Count 5.0, Red Blood Count 2.96L, Hemoglobin 8.1L, Hematocrit 25L, Mean Corpuscular Volume 85, Mean Corpuscular Hemoglobin 27, Mean Corpuscular Hemoglobin Concent 32, Red Cell Distribution Width 15.6H, Platelet Count 260, Mean Platelet Volume 9.4, Neutrophils (%) (Auto) 76H, Lymphocytes (%) (Auto) 14, Monocytes (%) (Auto) 8, Eosinophils (%) (Auto) 1, Basophils (%) (Auto) 0, Neutrophils # (Auto) 3.8, Lymphocytes # (Auto) 0.7L, Monocytes # (Auto) 0.4, Eosinophils # (Auto) 0.1, Basophils # (Auto) 0.0, Sodium Level 135, Potassium Level 4.5, Chloride Level 103, Carbon Dioxide Level 25, Anion Gap 7, Blood Urea Nitrogen 12, Creatinine 0.58L, Estimat Glomerular Filtration Rate > 60, BUN/Creatinine Ratio 21, Glucose Level 183H, Calcium Level 7.7L, Corrected Calcium 9.3, Total Bilirubin 0.3, Aspartate Amino Transf (AST/SGOT) 15, Alanine Aminotransferase (ALT/SGPT) 11, Alkaline Phosphatase 95, Total Protein 4.8L, Albumin 2.0L 07/01/19 13:26: Glucometer 155H Assessment/Plan Assessment/Plan Assessment/Plan s/p sudhir patch for perforated gastric pouch no leak by upper gi Gastrografin study started on sips of clears needing TPN for nutrition planning on advancing diet slowly and weaning TPN protonix bid and dvt prophylaxis monitor trae drains any color in drain with intake make npo Clinical Quality Measures DVT/VTE Risk/Contraindication: Risk Factor Score Per Nursin RFS Level Per Nursing on Admit: 4+=Very High ROBYN POWERS DO Jul 01, 2019 15:27
[2019-07-01] MEDS: ENOXAPARIN 40 MG/0.4 ML (LOVENOX) SYR SC SCH (16:58)
[2019-07-01] MEDS: SODIUM ACETATE IV SCH ×11 (17:33)
[2019-07-01] MEDS: [UNRECOGNIZED DRUG - OTHER] IV SCH ×11 (17:33)
[2019-07-01] MEDS: SODIUM CHLORIDE IV SCH ×11 (17:33)
[2019-07-01 18:04] VITALS: BP 136/84
[2019-07-01] MEDS: RT-ALBUTEROL SULF 2.5 MG/3 ML PRE-MIX VIAL INH SCH (19:19)
[2019-07-02] MEDS: LACTATED RINGERS 1,000 ML IV SCH ×2 (02:00→14:17)
[2019-07-02] MEDS: PIPERACILLIN/TAZOBACTAM (BULK) 4.5 GM in NS (IVPB) 100 ML IV SCH ×3 (04:19→20:57)
[2019-07-02] MEDS: inSUlin ASPART (NovoLOG) 1 UNIT/0.01 ML (CHARGE PER UNIT) SC SCH ×4 (05:48→23:41)
[2019-07-02 05:59] VITALS: BP 144/73
[2019-07-02] MEDS: RT-ALBUTEROL SULF 2.5 MG/3 ML PRE-MIX VIAL INH SCH ×2 (08:11→20:01)
[2019-07-02] MEDS: PANTOPRAZOLE 40 MG (PROTONIX) VIAL IV SCH ×2 (08:46→20:57)
[2019-07-02] MEDS: ACETAMINOPHEN 500 MG TAB (TYLENOL) PO PRN ×3 (08:56→22:31)
[2019-07-02] MEDS: FLUCONAZOLE 200 MG/100 ML 100 ML IV SCH (09:01)
--- NOTE | 2019-07-02 11:16 | Progress Note - Surgery ---
[facility] 07/02/19 1116: Subjective Date Seen by a Provider: Jul 02, 2019 Time Seen by a Provider: 08:25 Subjective/Events-last exam Patient states feeling much better and was sitting comfortably in chair. Patient states she does have a sore throat. Just started having bowel movements, and has no trouble peeing. Does have some nausea, but patient states that it is normal for her. JG drains have serous fluid and are functioning. 640 ml drainage on 07.01.19 Review of Systems General: No Chills, No Other (fevers) Pulmonary: No Dyspnea, No Cough Cardiovascular: No: Chest Pain Gastrointestinal: Nausea; No: Vomiting, Abdominal Pain Objective Exam Vital Signs Date Time Temp Pulse Resp B/P (MAP) Pulse Ox O2 Delivery O2 Flow Rate FiO2 07/02/19 09:39 Room Air 07/02/19 08:11 95 Room Air 07/02/19 06:11 22 07/02/19 05:59 36.6 89 22 144/73 (96) 98 Room Air 07/01/19 21:00 Room Air 07/01/19 19:30 18 07/01/19 19:20 97 Room Air 07/01/19 18:04 36.5 88 20 136/84 (101) 99 Room Air I & O 07/02/19 07:00 Intake Total 1220 ml Output Total 4270 ml Balance -3050 ml Capillary Refill : General Appearance: No Apparent Distress, WD/WN HEENT: PERRL/EOMI Neck: Supple Respiratory: Chest Non Tender, No Accessory Muscle Use, No Respiratory Distress Cardiovascular: Regular Rate, Rhythm, Normal Peripheral Pulses Gastrointestinal: soft, tenderness (incisional, c/d/i trae drains serous) Neurologic/Psychiatric: Alert, Oriented x3, Normal Mood/Affect Skin: Normal Color, Warm/Dry Results Lab Laboratory Tests 07/01/19 13:26: Glucometer 155H 07/01/19 18:41: Glucometer 200H 07/01/19 23:18: Glucometer 205H 07/02/19 05:41: Glucometer 152H Assessment/Plan Assessment/Plan Assessment/Plan s/p sudhir patch for perforated gastric pouch started on sips of clears needing TPN for nutrition planning on advancing diet slowly and weaning TPN protonix bid and dvt prophylaxis monitor trae drains any color in drain with intake make npo continue breathing treatments Clinical Quality Measures DVT/VTE Risk/Contraindication: Risk Factor Score Per Nursin RFS Level Per Nursing on Admit: 4+=Very High ROBYN TAYLOR DO 07/02/192104: Subjective Subjective/Events-last exam Patient tolerating sips of liquids. Pain controlled. No complaints at this time. On TPN. Serous drainage from drains. Slight nausea which she states is normal for her. She denies vomiting fever sweats chills shortness of breath or chest pain. Objective Exam General Appearance: No Apparent Distress, WD/WN HEENT: PERRL/EOMI Respiratory: Chest Non Tender, No Accessory Muscle Use, No Respiratory Distress Cardiovascular: Regular Rate, Rhythm Gastrointestinal: soft, tenderness (incisional, c/d/i trae drains serous) Extremity: Non Tender Neurologic/Psychiatric: Alert, Oriented x3, Normal Mood/Affect Skin: Normal Color, Warm/Dry Lymphatic: No Adenopathy Assessment/Plan Assessment/Plan Assessment/Plan s/p sudhir patch for perforated gastric pouch history of gastric bypass On TPN for nutrition and tolerating sips and no evidence of leak instructed to increase oral intake of clears and if tolerates will start weaning tpn protonix bid lovenox for dvt prophylaxis monitor trae drains for color of intake if so make npo Supervisory-Addendum Brief Verification & Attestation Participated in pt care: history, MDM, physical Personally performed: exam, history, MDM, supervision of care Care discussed with: Medical Student Procedures: n/a Results interpretation: Verified all documentation Verification and Attestation of Medical Student E/M Service A medical student performed and documented this service in my presence. I reviewed and verified all information documented by the medical student and made modifications to such information, when appropriate. I personally performed the physical exam and medical decision making. Robyn Taylor, Jul 02, 2019,21:05 OSCAR GARCES Jul 02, 2019 11:16 ROBYN TAYLOR DO Jul 02, 2019 21:05
--- NOTE | 2019-07-02 12:55 | PM&R Progress Note ---
Subjective HPI/CC On Admission Date Seen by Provider: Jul 02, 2019 Time Seen by Provider: 11:15 CC: Debility requiring inpatient rehab admission HPI: This is a 49yoWF who is s/p septic shock ICU status emergent surgery for ga stric perforation maintained on TPN and severe weakness requiring inpatient rehab prior to returning home. Currently she is able to tolerate a few ounces of intake at a time but Dr. Taylor wants her to go very slowly. Pain is better controlled and she is willing to participate in PT in order to ultimately return home. PLOF was independent. Patient does have situational depression currently and we will aggressively treat this to aid in recovery. Subjective/Events-last exam Patient doing pretty well Bladder function working well Overall pain is about the same Daughter is at the bedside 2 OFE drains are still in place Dr. 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 Maintained on TPN Review of Systems Gastrointestinal: Abdominal Pain Objective Exam Vital Signs Vital Signs Date Time Temp Pulse Resp B/P (MAP) Pulse Ox O2 Delivery O2 Flow Rate FiO2 07/02/19 21:00 Room Air 07/02/19 21:00 36.6 92 18 145/85 (105) 98 Capillary Refill : General Appearance: No Apparent Distress, WD/WN, Chronically ill HEENT: PERRL/EOMI, Normal ENT Inspection, Pharynx Normal Neck: Full Range of Motion, Normal Inspection, Non Tender, Supple Respiratory: Chest Non Tender, Normal Breath Sounds, No Accessory Muscle Use, No Respiratory Distress Cardiovascular: Regular Rate, Rhythm, No Edema, No Gallop, No JVD, No Murmur, Normal Peripheral Pulses Gastrointestinal: Soft, Abnormal Bowel Sounds (decreased), Tenderness Back: Normal Inspection, No CVA Tenderness, No Vertebral Tenderness Extremity: Normal Capillary Refill, Normal Inspection, Normal Range of Motion, Non Tender, No Calf Tenderness Neurologic/Psychiatric: Alert, Oriented x3, No Motor/Sensory Deficits, Normal Mood/Affect, residential instructor II-XII Norm as Tested Skin: Normal Color, Warm/Dry Lymphatic: No Adenopathy Results/Procedures Lab Laboratory Tests 07/03/19 04:12 07/03/19 05:13 Patient resulted labs reviewed. FIM Transfers Therapy Code Descriptions/Definitions Functional [place] Measure: 0=Not Assessed/NA 4=Minimal Assistance 1=Total Assistance 5=Supervision or Setup 2=Maximal Assistance 6=Modified [place] 3=Moderate Assistance 7=Complete IndependenceSCALE: Activities may be completed with or without assistive devices. 3-Hcjtgzxhez-skdedrc completes the activity by him/herself with no assistance from a helper. 5-Set-up or Clean-up Assistance-helper sets up or cleans up; patient completes activity. [place] assists only prior to or following the activity. 4-Supervision or Touching Assistance-helper provides verbal cues and/or touching/steadying and/or contact guard assistance as patient completes activity. Assistance may be provided throughout the activity or intermittently. 3-Partial/Moderate Assistance-helper does LESS THAN HALF the effort. [place] lifts, holds or supports trunk or limbs, but provides less than half the effort. 2-Substantial/Maximal Assistance-helper does MORE THAN HALF the effort. [place] lifts or holds trunk or limbs and provides more than half the effort. 7-Cnnvrixll-hvdqbv does ALL the effort. Patient does none of the effort to complete the activity. Or, the assistance of 2 or more helpers is required for the patient to complete the activity. If activity was not attempted, code reason: 7-Patient Refused. 9-Not Applicable-not attempted and the patient did not perform the activity before the current illness, exacerbation or injury. 10-Not Attempted due to Environmental Limitations-(lack of equipment, weather restraints, etc.). 88-Not Attempted due to Medical Conditions or Safety Concerns. Transfers (B, C, W/C) (FIM): 5 Roll Left to Right (QC): 5 Sit to Lying (QC): 2 Sit to Stand (QC): 5 Chair/Yek-kv-Refrv Xfer(QC): 4 Car Transfer (QC): 5 Gait Training Does the Patient Walk?: Yes Gait (FIM): 5 Walk 10 feet (QC): 5 Walk 50 ft with 2 Turns(QC): 5 Walk 150 ft (QC): 5 Gait Persons Needed: 1 Gait Assistive Device: FWW ADL-Treatment Eating (QC): 6 (Pt eating jello/ drinking clear liquids without assist.) Oral Hygiene (QC): 5 (Pt demonstrates difficulty with opening toothpaste, multiple attempts before success. Able to brush teeth at chair with s/u for water and materials.) Shower/Bathe Self (QC): 2 (Pt completes sponge bath with warm washcloths. Pt completes UB and thighs without assist. Pt requires assist with LE, feet, back and bottom with SBA in stance with FWW.) Upper Body Dressing (QC): 5 (Pt completes in chair with s/u) Lower Body Dressing (QC): 2 (Pt max A for donning) Toileting Hygiene (QC): 4 (CGA in stance) Toilet Transfer (QC): 5 (SBA, use of grab bars for transfer) Assessment/Plan Assessment and Plan Assess & Plan/Chief Complaint Assessment: Severe debility s/p septic shock s/p gastric perforation s/p gastric bypass remotely Anemia Hyperglycemia Depression Post op ileus On TPN Plan: Monitor closely TPN PO intake Pain control (1) Septic shock Status: Resolved Resolution Date/Time: 06/30/19 @ 14:48 (2) Gastrointestinal perforation Status: Resolved (3) Nausea and vomiting Status: Acute (4) Ileus following gastrointestinal surgery (5) On total parenteral nutrition (6) Anemia (7) Hyperglycemia (8) Depressed DIONICIO TURNER DO Jul 02, 2019 12:55
[2019-07-02] MEDS: morphine PCA 100 MG/100 ML BAG IV PRN (14:09)
[2019-07-02] MEDS: ENOXAPARIN 40 MG/0.4 ML (LOVENOX) SYR SC SCH (17:07)
[2019-07-02] MEDS: SODIUM ACETATE IV SCH ×11 (17:13)
[2019-07-02] MEDS: [UNRECOGNIZED DRUG - OTHER] IV SCH ×11 (17:13)
[2019-07-02] MEDS: SODIUM CHLORIDE IV SCH ×11 (17:13)
[2019-07-02 17:26] VITALS: BP 157/86
[2019-07-02 21:00] VITALS: BP 145/85
[2019-07-03] MEDS: LACTATED RINGERS 1,000 ML IV SCH ×2 (03:00→13:52)
[2019-07-03] MEDS: PIPERACILLIN/TAZOBACTAM (BULK) 4.5 GM in NS (IVPB) 100 ML IV SCH ×2 (04:20→14:11)
[2019-07-03 04:21] LABS: BASOPHILS % (AUTO) 1 % (0-10); EOSINOPHILS # (AUTO) 0.1 10^3/uL (0.0-0.3); EOSINOPHILS % (AUTO) 3 % (0-10); HEMATOCRIT 24 % (35-52); HEMOGLOBIN 7.2 G/DL (11.5-16.0); LYMPHOCYTES # (AUTO) 0.6 X 10^3 (1.0-4.0); LYMPHOCYTES % (AUTO) 19 % (12-44); MEAN CORPUSCULAR HEMOGLOBIN 27 PG (25-34); MEAN CORPUSCULAR HGB CONC 30 G/DL (32-36); MEAN CORPUSCULAR VOLUME 90 FL (80-99); MEAN PLATELET VOLUME 9.4 FL (7.4-10.4); MONOCYTES # (AUTO) 0.3 X 10^3 (0.0-1.0); MONOCYTES % (AUTO) 10 % (0-12); NEUTROPHILS # (AUTO) 2.3 X 10^3 (1.8-7.8); NEUTROPHILS % (AUTO) 68 % (42-75); PLATELET COUNT 274 10^3/uL (130-400); RED CELL DISTRIBUTION WIDTH 15.5 % (10.0-14.5); WHITE BLOOD COUNT 3.4 10^3/uL (4.3-11.0)
--- NOTE | 2019-07-03 05:00 | NUR ---
LAB DRAWN FROM PT LEFT PICC LINE WHILE TPN STILL INFUSING. 0446: RECEIVED CALL FROM ARIEL IN LAB WITH CRITICAL POTASSIUM RESULT OF 8.6. 0500: RECEIVED CALL LAB WITH CRITICAL GLUCOSE RESULT OF 1209. TPN PUT ON STANDBY BY THIS RN. REPEAT LAB TO BE DRAWN. Addendum: 07/03/19 at 0505 by ESTELITA CHUA RN 0500: THIS RN ASSESSED PT - PT DENIED CHEST PAIN, PALPITATIONS, FEELINGS OF UNEASINESS. HEART RHYTHM WNL.
[2019-07-03] MEDS: ONDANSETRON 4 MG/2 ML (SDV) Z0FRAN IVP PRN ×2 (05:36→21:55)
[2019-07-03 05:45] LABS: ALANINE AMINOTRANSFERASE 14 U/L (0-55); ALKALINE PHOSPHATASE 93 U/L (40-136); BILIRUBIN,TOTAL 0.2 MG/DL (0.1-1.0); BUN/CREATININE RATIO 23; CALCIUM 7.5 MG/DL (8.5-10.1); CARBON DIOXIDE 25 MMOL/L (21-32); CHLORIDE 103 MMOL/L (98-107); CREATININE SERUM 0.56 MG/DL (0.60-1.30); GFR ESTIMATED > 60; GLUCOSE 162 MG/DL (70-105); POTASSIUM 4.4 MMOL/L (3.6-5.0); SODIUM 137 MMOL/L (135-145); TOTAL PROTEIN 4.8 GM/DL (6.4-8.2)
[2019-07-03 05:53] VITALS: BP 148/83
--- NOTE | 2019-07-03 05:55 | Individualized Plan of Care ---
Individualized Plan of Care Rehab Nursing IPOC Order Admission Date Jun 30, 2019 at 11:15 Current Orders Orders Admission Order(Inpt,Obs,Sdc) (06/30/19 08:55) Vital Signs: Per Unit Policy ( 08,16,00 (06/30/19 08:55) Automobile Accessories Salesperson-Inpt Rehab Con (06/30/19 08:55) Rehab Nursing Orders-Ipoc (06/30/19 08:55) Physical Therapy Rehab Orders (06/30/19 08:55) Occupational Therapy Rehab Ord (06/30/19 08:55) Speech Therapy Rehab Orders (06/30/19 08:55) Intake & Output 06,14,22 (06/30/19 08:55) Precautions (Aru) (06/30/19 08:55) Weekly Weight WEEK (06/30/19 08:55) Rehab-Intensity Of Therapy (06/30/19 08:55) Initiate Admission Nursing Pro .admission (06/30/19 08:55) Code/Resuscitation (06/30/19 08:55) Initiate Admission Nursing Pro .admission (06/30/19 08:55) Admission Arrival Bed Request (06/30/19 11:15) Lactated Ringers (Lr 1000 Ml Iv Solution (06/30/19 12:30) Iv Misc (Tpn) (06/30/19 12:30) Enoxaparin Injection (Lovenox Injection) (06/30/19 17:30) Piperacillin/Tazobactam (Bulk) (Zosyn In (06/30/19 13:00) Morphine (Neon Glass Bender) 1 Mg/Ml 100 Ml (Morphine (06/30/19 12:30) Ondansetron Injection (Zofran Injectio (06/30/19 12:30) Clear Liquid (06/30/19 Lunch) Sodium Chloride 14.6% Inj (Sodium Chlori (06/30/19 17:00) Fluconazole 200 Mg/100 Ml (Diflucan Iv) (06/30/19 12:36) Ns (Ivpb) (Sodium C... W/Pantoprazole In (06/30/19 12:36) Albuterol Pre-Mix Nebs (Rt) (Proventil (06/30/19 12:36) Insulin Aspart (Novolog) (Novolog (Charg (06/30/19 12:36) Albuterol Pre-Mix Nebs (Rt) (Proventil (06/30/19 12:44) Venous Access Request Order (06/30/19 13:53) Pantoprazole Injection (Protonix Injecti (06/30/19 21:00) Patient Visit (06/30/19 ) Pt Eval Moderate Complexity (06/30/19 ) Patient Visit (06/30/19 ) Speech Sound Lang Comp (06/30/19 ) Accucheck Achs ACHS (06/30/19 17:06) Cbc With Automated Diff (07/01/19 06:00) Comprehensive Metabolic Panel (07/01/19 06:00) Patient Visit (07/01/19 ) Gait Training, Ea 15 Min (07/01/19 ) Functional Activities, Ea 15 (07/01/19 ) Acetaminophen Tablet (Tylenol Tablet) (07/01/19 14:15) Alprazolam Tablet (Xanax Tablet) (07/01/19 14:15) Calcium Carbonate Chew Tablet (Antacid C (07/01/19 14:15) Diphenhydramine Tablet (Benadryl Tablet) (07/01/19 14:15) Melatonin Tablet (Melatonin Tablet) (07/01/19 14:15) Ondansetron Injection (Zofran Injectio (07/01/19 14:15) Ondansetron Oral Dissolve Tab (Zofran (07/01/19 14:15) Consult Physician (07/01/19 15:20) Diabetes Education (07/01/19 20:05) Cbc With Automated Diff (07/03/19 06:00) Comprehensive Metabolic Panel (07/03/19 06:00) Comprehensive Metabolic Panel (07/03/19 05:02) Rehab Nursing Orders: Ongoing Assess. of Cognitive Status, Ongoing Assess. of Function Status, Bladder Management, Bladder Scan, Bladder Training, Bowel Management, Bowel Training, Disease Management & Educaiton, DVT Prophylaxis, Fall Prevention, Fluid/Electrolyte/Nutrition Mgmt, Infection Prevention, M edication Management & Education, Management of Risks & Complications, Nutrition Management, Pain Management, Patient/Family Support, Safety Management Intensity of Therapy to be met Patient to be seen: Min.3h per day/5 of 7d PT IPOC Problem List: Activity Tolerance, Functional Strength, Safety, Balance, Gait, Transfer, Bed Mobility, ROM Treatment Plan: Continue Plan of Care Bed Mobility, Education, Functional Activity Carmina, Functional Strength, Group Therapy, Gait, Safety, Therapeutic Exercise, Transfers Treatment Duration: Jul 21, 2019 Frequency: At least 5 of 7 days/Wk (IRF) Estimated Hrs Per Day: 1.5 hours per day OT IPOC Problems: Decreased Activ Tolerance, Decreased UE Strength, Impaired I ADL's, Impaired Self-Care Skills OT Treatment, Training and Edu: Yes Plan of Care: ADL Retraining, Caregiver Training, Concurrent Therapy, Functional Mobility, Group Exercise/Act as Ind, UE Funct Exercise/Act Treatment Duration: Jul 14, 2019 Frequency: At least 5 of 7 days/Wk (IRF) Estimated Hrs Per Day: 1.[address] IPOC Speech Therapy Treatment Plan: Discontinue ST Treatment Duration: Jun 30, 2019 Frequency: 1 time per week Estimated Hrs Per Day: .25 hour per day Automobile Accessories Salesperson/Case Mgmt Automobile Accessories Salesperson/Case Managemen: Discharge Planning Dietitian/Door Hanger Dietitian/Door Hanger to monitor nutritional status and make changes and/or recommendations as needed and work with speech pathology on dietary upgrades as the occur. 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
[2019-07-03] MEDS: inSUlin ASPART (NovoLOG) 1 UNIT/0.01 ML (CHARGE PER UNIT) SC SCH ×3 (06:00→17:59)
[2019-07-03] MEDS: IRON SUCROSE 200 MG/10 ML (VENOFER) VIAL IV SCH (09:37)
[2019-07-03] MEDS: PANTOPRAZOLE 40 MG (PROTONIX) VIAL IV SCH ×2 (09:37→21:17)
--- NOTE | 2019-07-03 09:39 | PM&R Progress Note ---
Subjective HPI/CC On Admission Date Seen by Provider: Jul 03, 2019 Time Seen by Provider: 08:45 CC: Debility requiring inpatient rehab admission HPI: This is a 49yoWF who is s/p septic shock ICU status emergent surgery for gastric perforation maintained on TPN and severe weakness requiring inpatient rehab prior to returning home. Currently she is able to tolerate a few ounces of intake at a time but Dr. Taylor wants her to go very slowly. Pain is better controlled and she is willing to participate in PT in order to ultimately return home. PLOF was independent. Patient does have situational depression currently and we will aggressively treat this to aid in recovery. Subjective/Events-last exam Hgb 7.2 so iron level was ordered and started Venofer iron infusion empirically Home meds were restarted except for a few to pace ourselves to prevent over sedation since she does have a high dose of Lyrica 150 twice a day that I have yet to restart White count is 3.4 Bending over makes her abdomen painful Denies any other significant problems TPN will begin weaning off Checked meds and labs Conferred with shingle cutter therapy notes Maintained on TPN Review of Systems General: Fatigue Gastrointestinal: Abdominal Pain Neurological: Weakness, Numbness Objective Exam Vital Signs Vital Signs Date Time Temp Pulse Resp B/P (MAP) Pulse Ox O2 Delivery O2 Flow Rate FiO2 07/04/19 08:39 95 Room Air 07/04/19 06:13 20 07/04/19 05:18 36.3 95 160/89 (112) Capillary Refill : General Appearance: No Apparent Distress, WD/WN, Chronically ill HEENT: PERRL/EOMI, Normal ENT Inspection, Pharynx Normal Neck: Full Range of Motion, Normal Inspection, Non Tender, Supple Respiratory: Chest Non Tender, Normal Breath Sounds, No Accessory Muscle Use, No Respiratory Distress Cardiovascular: Regular Rate, Rhythm, No Edema, No Gallop, No JVD, No Murmur, Normal Peripheral Pulses Gastrointestinal: Soft, Abnormal Bowel Sounds (decreased), Tenderness Back: Normal Inspection, No CVA Tenderness, No Vertebral Tenderness Extremity: Normal Capillary Refill, Normal Inspection, Normal Range of Motion, Non Tender, No Calf Tenderness Neurologic/Psychiatric: Alert, Oriented x3, No Motor/Sensory Deficits, Normal Mood/Affect, commercial construction project manager II-XII Norm as Tested Skin: Normal Color, Warm/Dry Lymphatic: No Adenopathy Results/Procedures Lab Patient resulted labs reviewed. FIM Transfers Therapy Code Descriptions/Definitions Functional [place] Measure: 0=Not Assessed/NA 4=Minimal Assistance 1=Total Assistance 5=Supervision or Setup 2=Maximal Assistance 6=Modified [place] 3=Moderate Assistance 7=Complete IndependenceSCALE: Activities may be completed with or without assistive devices. 3-Uedfizvxuf-bktbukj completes the activity by him/herself with no assistance from a helper. 5-Set-up or Clean-up Assistance-helper sets up or cleans up; patient completes activity. [place] assists only prior to or following the activity. 4-Supervision or Touching Assistance-helper provides verbal cues and/or touching/steadying and/or contact guard assistance as patient completes activity. Assistance may be provided throughout the activity or intermittently. 3-Partial/Moderate Assistance-helper does LESS THAN HALF the effort. [place] lifts, holds or supports trunk or limbs, but provides less than half the effort. 2-Substantial/Maximal Assistance-helper does MORE THAN HALF the effort. [place] lifts or holds trunk or limbs and provides more than half the effort. 2-Cbmegxvcq-rimsog does ALL the effort. Patient does none of the effort to complete the activity. Or, the assistance of 2 or more helpers is required for the patient to complete the activity. If activity was not attempted, code reason: 7-Patient Refused. 9-Not Applicable-not attempted and the patient did not perform the activity before the current illness, exacerbation or injury. 10-Not Attempted due to Environmental Limitations-(lack of equipment, weather restraints, etc.). 88-Not Attempted due to Medical Conditions or Safety Concerns. Transfers (B, C, W/C) (FIM): 5 Roll Left to Right (QC): 5 Sit to Lying (QC): 2 Sit to Stand (QC): 5 Chair/Yxc-rj-Dkfps Xfer(QC): 4 Car Transfer (QC): 5 Gait Training Does the Patient Walk?: Yes Gait (FIM): 5 Walk 10 feet (QC): 5 Walk 50 ft with 2 Turns(QC): 5 Walk 150 ft (QC): 5 Gait Persons Needed: 1 Gait Assistive Device: FWW ADL-Treatment Eating (QC): 6 (Pt eating jello/ drinking clear liquids without assist.) Oral Hygiene (QC): 5 (Pt demonstrates difficulty with opening toothpaste, multiple attempts before success. Able to brush teeth at chair with s/u for water and materials.) Shower/Bathe Self (QC): 2 (Pt completes sponge bath with warm washcloths. Pt completes UB and thighs without assist. Pt requires assist with LE, feet, back and bottom with SBA in stance with FWW.) Upper Body Dressing (QC): 5 (Pt completes in chair with s/u) Lower Body Dressing (QC): 2 (Pt max A for donning) Toileting Hygiene (QC): 4 (CGA in stance) Toilet Transfer (QC): 5 (SBA, use of grab bars for transfer) Assessment/Plan Assessment and Plan Assess & Plan/Chief Complaint Assessment: Severe debility s/p septic shock s/p gastric perforation s/p gastric bypass remotely Anemia Hyperglycemia Depression Post op ileus On TPN Plan: Monitor closely TPN PO intake Pain control Home meds (1) Septic shock Status: Resolved Resolution Date/Time: 06/30/19 @ 14:48 (2) Gastrointestinal perforation Status: Resolved (3) Nausea and vomiting Status: Acute (4) Ileus following gastrointestinal surgery (5) On total parenteral nutrition (6) Anemia (7) Hyperglycemia (8) Depressed DIONICIO TURNER DO Jul 03, 2019 09:39
[2019-07-03] MEDS ORDERED: NON-FORMULARY MEDICATION 1 EA EA (Acetaminophen (Tylenol Extra Strength) 1,000 MG) PO PRN (09:45)
[2019-07-03] MEDS: RT-ALBUTEROL SULF 2.5 MG/3 ML PRE-MIX VIAL INH SCH ×2 (10:10→18:54)
--- NOTE | 2019-07-03 10:14 | Occupational Ther Daily Note ---
OT Current Status-Daily Note Subjective Pt states 7/10 pain in abdomen. Pt agreeable to OT tx session. Pt's present through OT session. Mental Status/Objective Patient Orientation: Normal For Age Attachments: IV, Other-See Comments ADL-Treatment Therapy Code Descriptions/Definitions Functional [place] Measure: 0=Not Assessed/NA 4=Minimal Assistance 1=Total Assistance 5=Supervision or Setup 2=Maximal Assistance 6=Modified [place] 3=Moderate Assistance 7=Complete IndependenceSCALE: Activities may be completed with or without assistive devices. 8-Uqbtobudtl-tfpzsnp completes the activity by him/herself with no assistance from a helper. 5-Set-up or Clean-up Assistance-helper sets up or cleans up; patient completes activity. [place] assists only prior to or following the activity. 4-Supervision or Touching Assistance-helper provides verbal cues and/or touching/steadying and/or contact guard assistance as patient completes activity. Assistance may be provided throughout the activity or intermittently. 3-Partial/Moderate Assistance-helper does LESS THAN HALF the effort. [place] lifts, holds or supports trunk or limbs, but provides less than half the effort. 2-Substantial/Maximal Assistance-helper does MORE THAN HALF the effort. [place] lifts or holds trunk or limbs and provides more than half the effort. 6-Ohxlhkldn-ofktgv does ALL the effort. Patient does none of the effort to complete the activity. Or, the assistance of 2 or more helpers is required for the patient to complete the activity. If activity was not attempted, code reason: 7-Patient Refused. 9-Not Applicable-not attempted and the patient did not perform the activity before the current illness, exacerbation or injury. 10-Not Attempted due to Environmental Limitations-(lack of equipment, weather restraints, etc.). 88-Not Attempted due to Medical Conditions or Safety Concerns. Eating (QC): 6 (Pt able to drink clear liquids from straw.) Lower Body Dressing (QC): 3 (Pt states she would like to put on breifs due to loose stools. Pt requires assist fastening sides of breif.) Toileting Hygiene (QC): 2 (Pt requires max A to wipe bottom thoroughly post-BM. Pt able to wipe delia area.) Toilet Transfer (QC): 5 (SBA) Other Treatment Pt completes toileting routine in room. Pt returns to chair with FWW and SBA. Pt completes UE theraband exercises with BUE, completing with skilled verbal and physical cues. Pt educated on importance of UE ROM and strengthening tasks during rehabilitation. Pt states she has not had an appetite, jello not ate, still on table from morning meal. Pt left with call light in reach, present, all needs met. Education OT Patient Education: Correct positioning, Exercise program, Home exercise program, Modified ADL techniques, Purpose of tx/functional activities, Rehab process, Safety issues, Transfer techniques Teaching Recipient: Patient Teaching Methods: Demonstration, Discussion Response to Teaching: Verbalize Understanding, Return Demonstration OT Short Term Goals Short Term Goals Eating(FIM): 4 (met) Upper Body Dressing(FIM): 2 Lower Body Dressing(FIM): 2 Additional Short Term Goals: 1-Demonstrate ADL Tasks, 2-Verbalize Unde rstanding, 3-ImproveStrength/Carmina 1=Demonstrate adherence to instructed precautions during ADL tasks. 2=Patient will verbalize/demonstrate understanding of assistive devices/modifications for ADL. 3=Patient will improve strength/tolerance for activity to enable patient to perform ADL's. OT Shelter Goals Shelter Goals Eating (QC): 6 Oral Hygiene (QC): 6 Shower/Bathe Self (QC): 5 Upper Body Dressing (QC): 6 Lower Body Dressing (QC): 6 On/Off Footwear (QC): 6 Toileting Hygiene (QC): 6 Toilet/Commode Transfer (QC): 6 Additional Goals: 1-Demonstrate ADL Tasks, 2-Verbalize Understanding, 3- ImproveStrength/Carmina 1=Demonstrate adherence to instructed precautions during ADL tasks. 2=Patient will verbalize/demonstrate understanding of assistive devices/modifications for ADL. 3=Patient will improve strength/tolerance for activity to enable patient to perform ADL's. OT Education/Plan Problem List/Assessment Assessment: Decreased Activ Tolerance, Decreased UE Strength, Impaired I ADL's, Impaired Self-Care Skills Discharge Recommendations Plan/Recommendations: Continue POC Treatment Plan/Plan of Care Treatment,Training & Education: Yes Patient would benefit from OT for education, treatment and training to promote independence in ADL's, mobility, safety and/or upper extremity function for ADL's. Plan of Care: ADL Retraining, Caregiver Training, Concurrent Therapy, Functional Mobility, Group Exercise/Act as Ind, UE Funct Exercise/Act Treatment Duration: Jul 14, 2019 Frequency: At least 5 of 7 days/Wk (IRF) Estimated Hrs Per Day: 1.5 hours per day Agreement: Yes Rehab Potential: Fair Time/GCodes Start Time: 09:30 Stop Time: 10:00 Total Time Billed (hr/min): 30 Billed Treatment Time 1 ADL (20), EX (10)= 30 BRENNON HIGGINS OTR Jul 03, 2019 10:14
[2019-07-03] MEDS: FLUCONAZOLE 200 MG/100 ML 100 ML IV SCH (10:31)
--- NOTE | 2019-07-03 11:00 | Physical Therapy Daily Note ---
PT Daily Note-Current Subjective Pt. agrees to Rx. States it has been a long time since she has slept in a bed on a regular basis as she has been sleeping in a chair while she cared for a family member. Pt. states she feels she would be near ready to go home if she only had these tubes out. Pain Numeric Pain Scale: 3 Location: Medial Location Body Site: Abdomen Pain Description: Pressure Mental Status Patient Orientation: Normal For Age Attachments: Drains, IV Transfers SCALE: Activities may be completed with or without assistive devices. 7-Tvecdtzqsp-atqijlb completes the activity by him/herself with no assistance from a helper. 5-Set-up or Clean-up Assistance-helper sets up or cleans up; patient completes activity. [place] assists only prior to or following the activity. 4-Supervision or Touching Assistance-helper provides verbal cues and/or touching/steadying and/or contact guard assistance as patient completes activity. Assistance may be provided throughout the activity or intermittently. 3-Partial/Moderate Assistance-helper does LESS THAN HALF the effort. [place] lifts, holds or supports trunk or limbs, but provides less than half the effort. 2-Substantial/Maximal Assistance-helper does MORE THAN HALF the effort. [place] lifts or holds trunk or limbs and provides more than half the effort. 1-Ikqltfvzl-upespi does ALL the effort. Patient does none of the effort to complete the activity. Or, the assistance of 2 or more helpers is required for the patient to complete the activity. If activity was not attempted, code reason: 7-Patient Refused. 9-Not Applicable-not attempted and the patient did not perform the activity before the current illness, exacerbation or injury. 10-Not Attempted due to Environmental Limitations-(lack of equipment, weather restraints, etc.). 88-Not Attempted due to Medical Conditions or Safety Concerns. Transfers (B, C, W/C): 4 Roll Left to Right (QC): 6 Sit to Lying (QC): 4 Sit to Stand (QC): 6 Chair/Eyd-ja-Bgvrm Xfer(QC): 6 Bed to/from Chair: 6 pt. has abdominal pain with sit to supine and needs CGA and instruction for all and needs to keep knee flexed as she lays down to comfort her abdomen Gait Training Does the Patient Walk?: Yes Gait: 5 Walk 10 feet (QC): 5 Walk 50 ft with 2 Turns(QC): 5 Walk 150 ft (QC): 5 Gait Persons Needed: 1 Gait Assistive Device: FWW needs assist for IVs and tubes only, no LOB, slow, careful and slightly flexed at trunk Stair Training Stair Training: Handrails/: 2 handrails #of Steps: 4 4 Steps (QC): 5 Stairs: Pattern: Step to Level of Assist: 5 assist for tubes only Exercises Supine Ex: Ankle pumps, Rolling, Heel Slides, Scooting, Hip abd/add Supine Reps: 12 NuStep Minutes: 10 NuStep Workload: 4 Treatments toileted x 2 with SBA only Assessment Current Status: Good Progress PT Short Term Goals Short Term Goals Time Frame: Jul 07, 2019 Gait Distance Comment: 50' Gait Assistive Device: FWW (SBA ) PT Assisted Goals Furrier Apprentice Goals PT Furrier Apprentice Goals Time Frame: Jul 21, 2019 Sit to Lying (QC): 4 (SBA) Lying-Sitting on Side/Bed(QC): 4 (SBA) Sit to Stand (QC): 4 (SBA) Roll Left to Right (QC): 4 (SBA) Chair/Jnp-wy-Jykll Xfer(QC): 4 (SBA) Car Transfer (QC): 4 (SBA) Distance: 150' Walk 10 feet (QC): 4 (SBA) Walk 10ft-Uneven Surface(QC): 4 (SBA) Walk 50ft with 2 Turns (QC): 4 (SBA) Walk 150 ft (QC): 4 (SBA) Gait Assistive Device: FWW # of Steps: 4 1 Step (curb) (QC): 4 4 Steps (QC): 4 Picking up an Object (QC): 4 PT Plan Treatment/Plan Treatment Plan: Continue Plan of Care Treatment Plan: Bed Mobility, Education, Functional Activity Carmina, Functional Strength, Group Therapy, Gait, Safety, Therapeutic Exercise, Transfers Treatment Duration: Jul 21, 2019 Frequency: At least 5 of 7 days/Wk (IRF) Estimated Hrs Per Day: 1.5 hours per day Patient and/or Family Agrees t: Yes Safety Risks/Education Patient Education: Gait Training, Transfer Techniques, Steps, Correct Positioning Teaching Recipient: Patient Teaching Methods: Demonstration, Discussion Response to Teaching: Verbalize Understanding, Return Demonstration, Reinforcement Needed Time/GCodes Time In: 1000 Time Out: 1100 Total Billed Treatment Time: 60 Total Billed Treatment 1,FA25m,GT15m,EX20m PALMER JARAMILLO POST CLOSER Jul 03, 2019 11:00
--- NOTE | 2019-07-03 11:08 | Progress Note ---
ALEXA SOLIS MED STUDENT 07/03/19 1108: Progress Note CC: septic shock and GI perforation Barriers to discharge/return home: * Reports that her main limitation is abdominal pain with bending over, which inhibits her ability to clean herself * Reports her strength and abdominal pain have been improving * Reports that she would like to restart her home medications, feels that she would improve more. Specifically cites Kizzy Tai. * Remains anemic, will be starting iron infusions * PT/OT report good progress, limited by abdominal pain, requires assistance with some ADLs KARYN TURNER DO 07/04/192049: Supervisory-Addendum Brief Verification & Attestation Participated in pt care: history, MDM, physical Personally performed: exam, history, MDM, supervision of care Care discussed with: Medical Student Procedures: n/a Results interpretation: Verified all documentation Verification and Attestation of Medical Student E/M Service A medical student performed and documented this service in my presence. I reviewed and verified all information documented by the medical student and made modifications to such information, when appropriate. I personally performed the physical exam and medical decision making. Karyn Turner, Jul 04, 2019,20:50 ALEXA SOLIS MED STUDENT Jul 03, 2019 11:08 KARYN TURNER DO Jul 04, 2019 20:50
--- NOTE | 2019-07-03 11:13 | NUR ---
Pt asking if her clear liquid diet could be advanced ? States that Dr. Taylor spoke w her yesterday about doing it. Message sent to Dr. Taylor to inquire
--- NOTE | 2019-07-03 12:09 | Occupational Ther Daily Note ---
OT Current Status-Daily Note Subjective Pt does not rate pain, grimaces upon donning socks due to abdominal flexion. Pt agreeable to OT tx session. Mental Status/Objective Patient Orientation: Normal For Age Attachments: IV ADL-Treatment Therapy Code Descriptions/Definitions Functional [place] Measure: 0=Not Assessed/NA 4=Minimal Assistance 1=Total Assistance 5=Supervision or Setup 2=Maximal Assistance 6=Modified [place] 3=Moderate Assistance 7=Complete IndependenceSCALE: Activities may be completed with or without assistive devices. 6-Oijaoaskhz-lejmovr completes the activity by him/herself with no assistance from a helper. 5-Set-up or Clean-up Assistance-helper sets up or cleans up; patient completes activity. [place] assists only prior to or following the activity. 4-Supervision or Touching Assistance-helper provides verbal cues and/or touching/steadying and/or contact guard assistance as patient completes activity. Assistance may be provided throughout the activity or intermittently. 3-Partial/Moderate Assistance-helper does LESS THAN HALF the effort. [place] lifts, holds or supports trunk or limbs, but provides less than half the effort. 2-Substantial/Maximal Assistance-helper does MORE THAN HALF the effort. [place] lifts or holds trunk or limbs and provides more than half the effort. 0-Kxukavijw-chrhpi does ALL the effort. Patient does none of the effort to complete the activity. Or, the assistance of 2 or more helpers is required for the patient to complete the activity. If activity was not attempted, code reason: 7-Patient Refused. 9-Not Applicable-not attempted and the patient did not perform the activity before the current illness, exacerbation or injury. 10-Not Attempted due to Environmental Limitations-(lack of equipment, weather restraints, etc.). 88-Not Attempted due to Medical Conditions or Safety Concerns. Eating (QC): 6 (Pt drinks warm tea from glass. Pt able to manipulate containers and tea bags with ease.) Oral Hygiene (QC): 5 (SBA at sink. ) Shower/Bathe Self (QC): 3 (Pt completes washing UE, abdomen (avoiding dressings), and LE with long handled sponge with mod I in chair. Pt requires assist reaching back and drying back. ) Upper Body Dressing (QC): 4 (Pt able to don gown in chair with intermittent assist for buttoning/ tying in back.) Lower Body Dressing (QC): 5 (Pt completes breif donning with SBA and sock doff/donning in chair.) Other Treatment Pt states she would like to wash hair, completes with showering cap. Pt completes sponge bath within chair, completes dressing tasks in chair/ beside chair in standing. Pt ambulates with FWW to bathroom sink to brush teeth, ambulates with SBA and no walker back to chair. Pt educated on diaphoramic and pursed lip breathing techniques, hand out provided, pt educated on benefits of diaphoramic breathing and seated position. Pt demonstrates understanding. Energy conservation hand out read through and discussed, pt states understanding. Pt expresses that is "self-centered" and only assists when it is "good for him," pt stated she thought about moving from her house with to [place] with her parents. Pt states she is having her daughter move items from her parents' home back to house with . Pt states she was applying for jobs prior to surgery and would like to return to work after rehabilitation. Pt given powder coat painter to utilize within room for greater IND. Pt left with call light in reach, all needs met, nursing present. Education OT Patient Education: Correct positioning, Energy conservation, Modified ADL techniques, Purpose of tx/functional activities, Rehab process, Safety issues, Use of adapted equipment Teaching Recipient: Patient Teaching Methods: Demonstration, Handout, Discussion Response to Teaching: Verbalize Understanding, Return Demonstration OT Short Term Goals Short Term Goals Eating(FIM): 4 (met) Upper Body Dressing(FIM): 2 (met) Lower Body Dressing(FIM): 2 Additional Short Term Goals: 1-Demonstrate ADL Tasks, 2-Verbalize Understanding, 3-ImproveStrength/Carmina 1=Demonstrate adherence to instructed precautions during ADL tasks. 2=Patient will verbalize/demonstrate understanding of assistive devices/mo difications for ADL. 3=Patient will improve strength/tolerance for activity to enable patient to perform ADL's. OT Half-Way Goals Half-Way Goals Eating (QC): 6 (met) Oral Hygiene (QC): 6 Shower/Bathe Self (QC): 5 Upper Body Dressing (QC): 6 (met) Lower Body Dressing (QC): 6 On/Off Footwear (QC): 6 Toileting Hygiene (QC): 6 Toilet/Commode Transfer (QC): 6 Additional Goals: 1-Demonstrate ADL Tasks, 2-Verbalize Understanding, 3- ImproveStrength/Carmina 1=Demonstrate adherence to instructed precautions during ADL tasks. 2=Patient will verbalize/demonstrate understanding of assistive devices/modifications for ADL. 3=Patient will improve strength/tolerance for activity to enable patient to perform ADL's. OT Education/Plan Problem List/Assessment Assessment: Decreased Activ Tolerance, Decreased UE Strength, Impaired I ADL's, Impaired Self-Care Skills Discharge Recommendations Plan/Recommendations: Continue POC Treatment Plan/Plan of Care Treatment,Training & Education: Yes Patient would benefit from OT for education, treatment and training to promote independence in ADL's, mobility, safety and/or upper extremity function for ADL's. Plan of Care: ADL Retraining, Caregiver Training, Concurrent Therapy, Functional Mobility, Group Exercise/Act as Ind, UE Funct Exercise/Act Treatment Duration: Jul 14, 2019 Frequency: At least 5 of 7 days/Wk (IRF) Estimated Hrs Per Day: 1.5 hours per day Agreement: Yes Rehab Potential: Fair Time/GCodes Start Time: 11:00 Stop Time: 12:00 Total Time Billed (hr/min): 60 Billed Treatment Time 1 ADL 3 (45), FA (15) = 60 BRENNON HIGGINS OTR Jul 03, 2019 12:09
--- NOTE | 2019-07-03 13:27 | NUR ---
Received orders from Dr. Taylor to advance diet to dysphagia 2, & decrease TPN rate by 1/2 today, & then half tomorrow, then D/C. Notified Pharmacy.
[2019-07-03 13:40] LABS: MAGNESIUM 1.6 MG/DL (1.6-2.4); PHOSPHORUS 3.4 MG/DL (2.3-4.7)
--- NOTE | 2019-07-03 13:53 | NUR ---
BAG OF ZOSYN TAKEN DOWN TO PHARMACY BY INDUSTRIAL ENGINEERING INTERN, & SHE IS BRINGING BACK A NEW ONE, BC APPEARED TO BE PARTIALLY FROZEN
--- NOTE | 2019-07-03 13:55 | NUR ---
TPN RATE REDUCED TO 30cc/hr ORDERED BY DR. POWERS Addendum: 07/03/19 at 1403 by VASHTI STEPHENSON RN 32 cc/hr
[2019-07-03] MEDS: ACETAMINOPHEN 500 MG TAB (TYLENOL) PO PRN (14:09)
--- NOTE | 2019-07-03 14:36 | Physical Therapy Daily Note ---
PT Daily Note-Current Subjective Pt. stats she feels she is doing much better with gait and balance and would like to soon try to walk without a device, maybe just pushing the IV pole Pain Numeric Pain Scale: 3 Location: Medial Location Body Site: Abdomen Pain Description: Ache Mental Status Patient Orientation: Normal For Age Attachments: Drains, IV Transfers SCALE: Activities may be completed with or without assistive devices. 3-Ibbmeekqzx-hzoapki completes the activity by him/herself with no assistance from a helper. 5-Set-up or Clean-up Assistance-helper sets up or cleans up; patient completes activity. [place] assists only prior to or following the activity. 4-Supervision or Touching Assistance-helper provides verbal cues and/or touching/steadying and/or contact guard assistance as patient completes activity. Assistance may be provided throughout the activity or intermittently. 3-Partial/Moderate Assistance-helper does LESS THAN HALF the effort. [place] lifts, holds or supports trunk or limbs, but provides less than half the effort. 2-Substantial/Maximal Assistance-helper does MORE THAN HALF the effort. [place] lifts or holds trunk or limbs and provides more than half the effort. 6-Pnvlzfiyp-vjsutr does ALL the effort. Patient does none of the effort to c omplete the activity. Or, the assistance of 2 or more helpers is required for the patient to complete the activity. If activity was not attempted, code reason: 7-Patient Refused. 9-Not Applicable-not attempted and the patient did not perform the activity before the current illness, exacerbation or injury. 10-Not Attempted due to Environmental Limitations-(lack of equipment, weather restraints, etc.). 88-Not Attempted due to Medical Conditions or Safety Concerns. sit to stand chairs and toilet all Mod I Gait Training Does the Patient Walk?: Yes Gait Assistive Device: FWW 175 ft x 2 FWW SBA with assist only for IVs. Exercises Seated Therapy Exercises: Ankle pumps, Sit to stand, Long arc quads, Hip flexion Seated Reps: 15 Assessment Current Status: Good Progress PT Short Term Goals Short Term Goals Time Frame: Jul 07, 2019 Gait Distance Comment: 50' Gait Assistive Device: FWW (SBA ) PT Prison Goals Prison Goals PT Prison Goals Time Frame: Jul 21, 2019 Sit to Lying (QC): 4 (SBA) Lying-Sitting on Side/Bed(QC): 4 (SBA) Sit to Stand (QC): 4 (SBA) Roll Left to Right (QC): 4 (SBA) Chair/Utu-ct-Bnbig Xfer(QC): 4 (SBA) Car Transfer (QC): 4 (SBA) Distance: 150' Walk 10 feet (QC): 4 (SBA) Walk 10ft-Uneven Surface(QC): 4 (SBA) Walk 50ft with 2 Turns (QC): 4 (SBA) Walk 150 ft (QC): 4 (SBA) Gait Assistive Device: FWW # of Steps: 4 1 Step (curb) (QC): 4 4 Steps (QC): 4 Picking up an Object (QC): 4 PT Plan Treatment/Plan Treatment Plan: Continue Plan of Care Treatment Plan: Bed Mobility, Education, Functional Activity Car[place], Functional Strength, Group Therapy, Gait, Safety, Therapeutic Exercise, Transfers Treatment Duration: Jul 21, 2019 Frequency: At least 5 of 7 days/Wk (IRF) Estimated Hrs Per Day: 1.5 hours per day Patient and/or Family Agrees t: Yes Safety Risks/Education Patient Education: Gait Training, Transfer Techniques, Correct Positioning, Disease Process, Safety Issues Teaching Recipient: Patient Teaching Methods: Demonstration, Discussion Response to Teaching: Verbalize Understanding, Return Demonstration, Reinforcement Needed Time/GCodes Time In: 1400 Time Out: 1430 Total Billed Treatment Time: 30 Total Billed Treatment 1,EX10m,GT20m PALMER JARAMILLO LONG CHAIN BEAMER Jul 03, 2019 14:36
--- NOTE | 2019-07-03 15:30 | NUR ---
Met with patient to complete initial assessment. Patient admitted to ARU on 06/30/19 after a lengthy hospital course that began with septic shock due to intestinal perforation s/p sudhir patch for perforated gastric patch by Dr. Taylor. 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 The patient's home in [place], [place] is a single-level home with 4 entry steps with no railing. The patient reports being independent with ADLs and functional mobility without adaptive equipment. She denies having any AE at home. Primary contact is her spouse, Trevor. He can be reached at or . Patient confirmed her primary insurance as [employer]. Patient reported she was using [facility] in [place], but is changing to either [facility] or [facility]. She also reported her PCP as Gilma Maciel APRN, but is requesting Dr. Mcgee take her as a new patient. If Dr. Mcgee is not able to take patient, the patient reports she has a nurse practitioner in [place] that she will use. The purpose of the weekly team conference was discussed and the patient verbalized understanding. Discharge goal is to return home.
[2019-07-03 16:27] VITALS: BP 146/85
[2019-07-03] MEDS: ENOXAPARIN 40 MG/0.4 ML (LOVENOX) SYR SC SCH (17:23)
[2019-07-03] MEDS: SODIUM CHLORIDE IV SCH ×11 (17:32)
[2019-07-03] MEDS: SODIUM ACETATE IV SCH ×11 (17:32)
[2019-07-03] MEDS: [UNRECOGNIZED DRUG - OTHER] IV SCH ×11 (17:32)
[2019-07-03] MEDS ORDERED: NON-FORMULARY MEDICATION 1 EA EA (Ropinirole HCl 1 MG) PO SCH (21:00)
[2019-07-03] MEDS: rOPINIRole 1 MG (REQUIP) TABLET PO SCH (21:17)
[2019-07-03] MEDS: SERTRALINE 100 MG (ZOLOFT) TAB PO SCH (21:17)
[2019-07-03] MEDS: toPIRamate 25 MG (TOPAMAX) TAB PO SCH (21:18)
[2019-07-04] MEDS: inSUlin ASPART (NovoLOG) 1 UNIT/0.01 ML (CHARGE PER UNIT) SC SCH ×4 (00:46→18:32)
[2019-07-04] MEDS: ONDANSETRON 4 MG (ZOFRAN) ORAL DISSOLVE TAB PO PRN (01:07)
[2019-07-04 05:18] VITALS: BP 160/89
[2019-07-04] MEDS: LACTATED RINGERS 1,000 ML IV SCH ×2 (05:59→17:13)
[2019-07-04] MEDS: RT-ALBUTEROL SULF 2.5 MG/3 ML PRE-MIX VIAL INH SCH ×2 (08:39→19:36)
[2019-07-04] MEDS: PANTOPRAZOLE 40 MG (PROTONIX) VIAL IV SCH ×2 (08:58→20:51)
[2019-07-04] MEDS: FLUCONAZOLE 200 MG/100 ML 100 ML IV SCH (09:15)
[2019-07-04] MEDS: ONDANSETRON 4 MG/2 ML (SDV) Z0FRAN IVP PRN ×2 (09:16→21:12)
--- NOTE | 2019-07-04 09:23 | PM&R Progress Note ---
Subjective HPI/CC On Admission Date Seen by Provider: Jul 04, 2019 Time Seen by Provider: 08:45 CC: Debility requiring inpatient rehab admission HPI: This is a 49yoWF who is s/p septic shock ICU status emergent surgery for gastric perforation maintained on TPN and severe weakness requiring inpatient rehab prior to returning home. Currently she is able to tolerate a few ounces of intake at a time but Dr. Taylor wants her to go very slowly. Pain is better controlled and she is willing to participate in PT in order to ultimately return home. PLOF was independent. Patient does have situational depression currently and we will aggressively treat this to aid in recovery. Subjective/Events-last exam Pt doing very well. TPN is decreasing by 50% today and another 50% will be discontinued very soon. Pain is doing much better. OFE drain is improving with output. Checked meds and labs. Tolerating Venofer, first dose yesterday. Had a BM which is excellent news. Checked meds and labs Conferred with rn clinician therapy notes Maintained on TPN Review of Systems General: Fatigue Gastrointestinal: Abdominal Pain Objective Exam Vital Signs Vital Signs Date Time Temp Pulse Resp B/P (MAP) Pulse Ox O2 Delivery O2 Flow Rate FiO2 07/04/19 20:08 20 07/04/19 16:12 36.2 90 154/83 (106) 99 Room Air Capillary Refill : General Appearance: No Apparent Distress, WD/WN, Chronically ill HEENT: PERRL/EOMI, Normal ENT Inspection, Pharynx Normal Neck: Full Range of Motion, Normal Inspection, Non Tender, Supple Respiratory: Chest Non Tender, Normal Breath Sounds, No Accessory Muscle Use, No Respiratory Distress Cardiovascular: Regular Rate, Rhythm, No Edema, No Gallop, No JVD, No Murmur, Normal Peripheral Pulses Gastrointestinal: Soft, Abnormal Bowel Sounds (decreased), Tenderness Back: Normal Inspection, No CVA Tenderness, No Vertebral Tenderness Extremity: Normal Capillary Refill, Normal Inspection, Normal Range of Motion, Non Tender, No Calf Tenderness Neurologic/Psychiatric: Alert, Oriented x3, No Motor/Sensory Deficits, Normal Mood/Affect, drapery cutter machine II-XII Norm as Tested Skin: Normal Color, Warm/Dry Lymphatic: No Adenopathy Results/Procedures Lab Patient resulted labs reviewed. FIM Transfers Therapy Code Descriptions/Definitions Functional [place] Measure: 0=Not Assessed/NA 4=Minimal Assistance 1=Total Assistance 5=Supervision or Setup 2=Maximal Assistance 6=Modified [place] 3=Moderate Assistance 7=Complete IndependenceSCALE: Activities may be completed with or without assistive devices. 4-Glaupbynlb-gzcufvq completes the activity by him/herself with no assistance from a helper. 5-Set-up or Clean-up Assistance-helper sets up or cleans up; patient completes activity. [place] assists only prior to or following the activity. 4-Supervision or Touching Assistance-helper provides verbal cues and/or touching/steadying and/or contact guard assistance as patient completes activity. Assistance may be provided throughout the activity or intermittently. 3-Partial/Moderate Assistance-helper does LESS THAN HALF the effort. [place] lifts, holds or supports trunk or limbs, but provides less than half the effort. 2-Substantial/Maximal Assistance-helper does MORE THAN HALF the effort. [place] lifts or holds trunk or limbs and provides more than half the effort. 2-Tdneiveuc-xwkzxq does ALL the effort. Patient does none of the effort to complete the activity. Or, the assistance of 2 or more helpers is required for the patient to complete the activity. If activity was not attempted, code reason: 7-Patient Refused. 9-Not Applicable-not attempted and the patient did not perform the activity before the current illness, exacerbation or injury. 10-Not Attempted due to Environmental Limitations-(lack of equipment, weather restraints, etc.). 88-Not Attempted due to Medical Conditions or Safety Concerns. Transfers (B, C, W/C) (FIM): 4 Roll Left to Right (QC): 6 Sit to Lying (QC): 4 Sit to Stand (QC): 6 Chair/Xty-pj-Rjwdx Xfer(QC): 6 Bed to/from Chair: 6 Car Transfer (QC): 5 Gait Training Does the Patient Walk?: Yes Gait (FIM): 5 Walk 10 feet (QC): 5 Walk 50 ft with 2 Turns(QC): 5 Walk 150 ft (QC): 5 Gait Persons Needed: 1 Gait Assistive Device: FWW Stair Training Stair Training: Handrails/: 2 handrails #of Steps: 4 4 Steps (QC): 5 Stairs: Pattern: Step to Level of Assist: 5 ADL-Treatment Eating (QC): 6 (Pt drinks warm tea from glass. Pt able to manipulate containers and tea bags with ease.) Oral Hygiene (QC): 5 (SBA at sink. ) Shower/Bathe Self (QC): 3 (Pt completes washing UE, abdomen (avoiding dressings), and LE with long handled sponge with mod I in chair. Pt requires assist reaching back and drying back. ) Upper Body Dressing (QC): 4 (Pt able to don gown in chair with intermittent assist for buttoning/ tying in back.) Lower Body Dressing (QC): 5 (Pt completes breif donning with SBA and sock doff/donning in chair.) Toileting Hygiene (QC): 2 (Pt requires max A to wipe bottom thoroughly post-BM. Pt able to wipe delia area.) Toilet Transfer (QC): 5 (SBA) Assessment/Plan Assessment and Plan Assess & Plan/Chief Complaint Assessment: Severe debility s/p septic shock s/p gastric perforation s/p gastric bypass remotely Anemia Hyperglycemia Depression Post op ileus resolving with BM today 07/04/19 On TPN Plan: Monitor closely TPN wean PO intake Pain control (1) Septic shock Status: Resolved Resolution Date/Time: 06/30/19 @ 14:48 (2) Gastrointestinal perforation Status: Resolved (3) Nausea and vomiting Status: Acute (4) Ileus following gastrointestinal surgery (5) On total parenteral nutrition (6) Anemia (7) Hyperglycemia (8) Depressed DIONICIO TURNER DO Jul 04, 2019 09:23
[2019-07-04] MEDS: ACETAMINOPHEN 500 MG TAB (TYLENOL) PO PRN ×2 (10:13→16:32)
[2019-07-04] MEDS: ALPRAZolam 0.25 MG (XANAX) TAB PO PRN (10:29)
--- NOTE | 2019-07-04 10:59 | Physical Therapy Daily Note ---
PT Daily Note-Current Subjective Pt sitting in recliner after just finishing with OT upon arrival. Pt agrees to PT but reports nausea & headache, Nurse notified & medication given. Pain Numeric Pain Scale: 7 Location Body Site: Head Pain Description: Ache Mental Status Patient Orientation: Person, Place, Situation Attachments: Drains, IV Transfers SCALE: Activities may be completed with or without assistive devices. 1-Yemffgnwey-hlsltsl completes the activity by him/herself with no assistance from a helper. 5-Set-up or Clean-up Assistance-helper sets up or cleans up; patient completes activity. [place] assists only prior to or following the activity. 4-Supervision or Touching Assistance-helper provides verbal cues and/or touching/steadying and/or contact guard assistance as patient completes activity. Assistance may be provided throughout the activity or intermittently. 3-Partial/Moderate Assistance-helper does LESS THAN HALF the effort. [place] lifts, holds or supports trunk or limbs, but provides less than half the effort. 2-Substantial/Maximal Assistance-helper does MORE THAN HALF the effort. [place] lifts or holds trunk or limbs and provides more than half the effort. 5-Cbortpsas-hekaon does ALL the effort. Patient does none of the effort to complete the activity. Or, the assistance of 2 or more helpers is required for the patient to complete the activity. If activity was not attempted, code reason: 7-Patient Refused. 9-Not Applicable-not attempted and the patient did not perform the activity before the current illness, exacerbation or injury. 10-Not Attempted due to Environmental Limitations-(lack of equipment, weather restraints, etc.). 88-Not Attempted due to Medical Conditions or Safety Concerns. Sit to Lying (QC): 5 Sit to Stand (QC): 5 Chair/Kzc-mm-Zefkq Xfer(QC): 5 Bed to/from Chair: 5 Weight Bearing Full Weight Bearing Full Weight Bearing Gait Training Does the Patient Walk?: Yes Gait: 5 Distance: 150' x2 Walk 10 feet (QC): 5 Walk 50 ft with 2 Turns(QC): 5 Walk 150 ft (QC): 5 Gait Persons Needed: 1 Gait Assistive Device: FWW Wheelchair Training Does the Pt Use a Wheelchair?: No Exercises Supine Ex: Ankle pumps, Quad Set, Glut sets, Heel Slides, Straight leg raise, Hip abd/add Supine Reps: 15 Seated Therapy Exercises: Ankle pumps, Long arc quads, Hip flexion, Kicking activity Seated Reps: 15 Treatments Pt is anxious and reports headache upon arrival. Nursing gives medication. MYSQL DATABASE ADMINISTRATOR encourages pt gives pt education over progress, ARU weekly mtg as well as need for balance between pushing self to progress and overexerting self. Pt completes Seated EX then transfers to EOB then Supine. Pt completes Supine EX. Pt then asks to get up to walk. Pt ambulates in hallway before returning to room to rest Supine in bed before OT arrives for tx. Pt has all needs met, call light in hand. Assessment Current Status: Good Progress Pt needs encouragement to begin tx due to anxiety. PT Short Term Goals Short Term Goals Time Frame: Jul 07, 2019 Gait Distance Comment: 50' Gait Assistive Device: FWW (SBA ) PT Retirement Goals Retirement Goals PT Court Bailiff Or Sheriff Goals Time Frame: Jul 21, 2019 Sit to Lying (QC): 4 (SBA) Lying-Sitting on Side/Bed(QC): 4 (SBA) Sit to Stand (QC): 4 (SBA) Roll Left to Right (QC): 4 (SBA) Chair/Thm-aq-Cbwtt Xfer(QC): 4 (SBA) Car Transfer (QC): 4 (SBA) Distance: 150' Walk 10 feet (QC): 4 (SBA) Walk 10ft-Uneven Surface(QC): 4 (SBA) Walk 50ft with 2 Turns (QC): 4 (SBA) Walk 150 ft (QC): 4 (SBA) Gait Assistive Device: FWW # of Steps: 4 1 Step (curb) (QC): 4 4 Steps (QC): 4 Picking up an Object (QC): 4 PT Plan Problem List Problem List: Activity Tolerance, Functional Strength Treatment/Plan Treatment Plan: Continue Plan of Care Treatment Plan: Bed Mobility, Education, Functional Activity Car[place], Functional Strength, Group Therapy, Gait, Safety, Therapeutic Exercise, Transfers Treatment Duration: Jul 21, 2019 Frequency: At least 5 of 7 days/Wk (IRF) Estimated Hrs Per Day: 1.5 hours per day Patient and/or Family Agrees t: Yes Safety Risks/Education Patient Education: Gait Training, Transfer Techniques, Correct Positioning, Safety Issues Teaching Recipient: Patient Teaching Methods: Discussion Response to Teaching: Verbalize Understanding Time/GCodes Time In: 1000 Time Out: 1100 Total Billed Treatment Time: 60 Total Billed Treatment 1, EX x2 (30m), GT (15m) & FA (15m) ALF PITTS MYSQL DATABASE ADMINISTRATOR Jul 04, 2019 10:59
--- NOTE | 2019-07-04 11:33 | Progress Note ---
ALEXA SOLIS MED STUDENT 07/04/19 1133: Subjective Date Seen by a Provider: Jul 04, 2019 Time Seen by a Provider: 08:00 Subjective/Events-last exam CC: septic shock and s/p tyler patch for GI perforation * transitioning off of TPN to dysphagia 2 diet, planned to be off TPN tomorrow * had nausea and vomiting last night, associates it with sinus drainage she always has due to allergies, as well as to feeling reflux after drinking ice water, which made her anxious * no longer has abdominal pain that she attributes to incision sites, attributes abdominal pain to muscular pain * remains tired, had iron infusion yesterday * appeared to be in a slightly better mood, and seemed more lively today than before * began taking some of her home medications yesterday * continues to participate in PT/OT, who reports good progress and increased motivation Review of Systems General: No Chills HEENT: Head Aches (forehead); No Sinus Congestion; Post Nasal Drip; No Sore Throat Pulmonary: No Dyspnea, No Cough Cardiovascular: No: Chest Pain, Edema Gastrointestinal: Nausea, Vomiting, Abdominal Pain (muscular); No: Diarrhea, Constipation Genitourinary: No Dysuria, No Frequency Neurological: No: Numbness Objective Exam Last Set of Vital Signs Vital Signs Date Time Temp Pulse Resp B/P (MAP) Pulse Ox O2 Delivery O2 Flow Rate FiO2 07/04/19 08:39 95 Room Air 07/04/19 06:13 20 07/04/19 05:18 36.3 95 160/89 (112) Capillary Refill : I&O Intake and Output 07/04/19 00:00 Intake Total 1790 ml Output Total 3405 ml Balance -1615 ml Intake Oral 1550 ml IV Total 240 ml Output Urine Total 2925 ml Drainage Total 480 ml # Voids 4 # Bowel Movements 3 General: Alert, Oriented X3, Cooperative Lungs: Clear to Auscultation, Normal Air Movement Heart: Regular Rate, Normal S1, Normal S2, No Murmurs Results Lab Laboratory Tests 07/03/19 11:59: Glucometer 157H 07/03/19 17:53: Glucometer 192H 07/04/19 00:43: Glucometer 185H 07/04/19 05:56: Glucometer 148H Assessment/Plan Assessment/Plan Assess & Plan/Chief Complaint Assessment: 1. s/p tyler patch for GI perforation 2. s/p septic shock 3. anemia 4. nausea and vomiting 5. hyperglycemia 6. depression Plan: 1. continue discontinuation of TPN 2. monitor n/v, continue ondansetron prn 3. continue iron infusions 4. continue medications for chronic conditions Diagnosis/Problems Diagnosis/Problems (1) Gastrointestinal perforation Status: Resolved Assessment & Plan: Assessment - 1. s/p Tyler patch Plan - 1. continue postsurgical protocol 2. monitor anemia (2) Septic shock Status: Resolved Assessment & Plan: Assessment: 1. Sepsis in the setting of GI perforation Plan: 1. continue piperacillin/tazobactam 4.5 mg IV at 120 ml @ 30 mls/hr q8H through 07/03/19 2. monitor CBC, symptoms of infection Resolution Date/Time: 06/30/19 @ 14:48 Clinical Quality Measures DVT/VTE Risk/Contraindication: Risk Factor Score Per Nursin RFS Level Per Nursing on Admit: 4+=Very High DIONICIO TURNER DO 07/04/19 2106: Supervisory-Addendum Brief Verification & Attestation Participated in pt care: history, MDM, physical Personally performed: exam, history, MDM, supervision of care Care discussed with: Medical Student Procedures: n/a Results interpretation: Verified all documentation Verification and Attestation of Medical Student E/M Service A medical student performed and documented this service in my presence. I reviewed and verified all information documented by the medical student and made modifications to such information, when appropriate. I personally performed the physical exam and medical decision making. Dionicio Turner, Jul 04, 2019,21:06 ALEXA SOLIS MED STUDENT Jul 04, 2019 11:33 DIONICIO TURNER DO Jul 04, 2019 21:06
--- NOTE | 2019-07-04 13:21 | Occupational Ther Daily Note ---
OT Current Status-Daily Note Subjective Pt seen in recliner chair, agreeable to OT tx session. Pt states she is "stiff" in her back and did not sleep well. Pt states she dry heaved during the night and is still somewhat nauseous. Mental Status/Objective Patient Orientation: Normal For Age Attachments: IV ADL-Treatment Therapy Code Descriptions/Definitions Functional [place] Measure: 0=Not Assessed/NA 4=Minimal Assistance 1=Total Assistance 5=Supervision or Setup 2=Maximal Assistance 6=Modified [place] 3=Moderate Assistance 7=Complete IndependenceSCALE: Activities may be completed with or without assistive devices. 3-Igoyochwgy-nwbgzty completes the activity by him/herself with no assistance from a helper. 5-Set-up or Clean-up Assistance-helper sets up or cleans up; patient completes activity. [place] assists only prior to or following the activity. 4-Supervision or Touching Assistance-helper provides verbal cues and/or tenisha juan/steadying and/or contact guard assistance as patient completes activity. Assistance may be provided throughout the activity or intermittently. 3-Partial/Moderate Assistance-helper does LESS THAN HALF the effort. [place] lifts, holds or supports trunk or limbs, but provides less than half the effort. 2-Substantial/Maximal Assistance-helper does MORE THAN HALF the effort. [place] lifts or holds trunk or limbs and provides more than half the effort. 8-Deoxxlokj-eqilyj does ALL the effort. Patient does none of the effort to complete the activity. Or, the assistance of 2 or more helpers is required for the patient to complete the activity. If activity was not attempted, code reason: 7-Patient Refused. 9-Not Applicable-not attempted and the patient did not perform the activity before the current illness, exacerbation or injury. 10-Not Attempted due to Environmental Limitations-(lack of equipment, weather restraints, etc.). 88-Not Attempted due to Medical Conditions or Safety Concerns. Eating (QC): 6 Upper Body Dressing (QC): 5 (Pt completes UB dressing with gown with s/u.) Toileting Hygiene (QC): 5 (SUP for delia hygiene) Toilet Transfer (QC): 5 (SUP) Other Treatment Pt completes toileting task. Pt states she is feeling "okay," and thinks she will feel better once medication has "kicked in." Pt completes head grower activities, gathers gray bags from floor/ across room, pt ambulates without FWW, is able to pick pulling machine operator all gray bags with head grower from different levels. Pt expresses some pain with bending due to back and hips, pt states she has had difficulty with back for many years and her hip is from "old age." Pt completes stretching activities for back/ chest within chair. Pt expresses tightness in R posterior side during stretching, pt educated to not stretch past point of comfort. Pt able to complete pursed lip breathing throughout. Pt left with call light in reach, all needs met, pt in recliner chair. Education OT Patient Education: Correct positioning, Exercise program, Modified ADL techn iques, Purpose of tx/functional activities, Safety issues, Use of adapted equipment Teaching Recipient: Patient Teaching Methods: Demonstration, Discussion Response to Teaching: Verbalize Understanding, Return Demonstration OT Short Term Goals Short Term Goals Eating(FIM): 4 (met) Upper Body Dressing(FIM): 2 (met) Lower Body Dressing(FIM): 2 (met) Additional Short Term Goals: 1-Demonstrate ADL Tasks, 2-Verbalize Understanding, 3-ImproveStrength/Carmina 1=Demonstrate adherence to instructed precautions during ADL tasks. 2=Patient will verbalize/demonstrate understanding of assistive dev ices/modifications for ADL. 3=Patient will improve strength/tolerance for activity to enable patient to perform ADL's. OT Piped Pocket Machine Operator Goals Chcf Goals Eating (QC): 6 (met) Oral Hygiene (QC): 6 Shower/Bathe Self (QC): 5 Upper Body Dressing (QC): 6 (met) Lower Body Dressing (QC): 6 On/Off Footwear (QC): 6 Toileting Hygiene (QC): 6 Toilet/Commode Transfer (QC): 6 Additional Goals: 1-Demonstrate ADL Tasks, 2-Verbalize Understanding, 3- ImproveStrength/Carmina 1=Demonstrate adherence to instructed precautions during ADL tasks. 2=Patient will verbalize/demonstrate understanding of assistive devices/modifications for ADL. 3=Patient will improve strength/tolerance for activity to enable patient to perform ADL's. OT Education/Plan Problem List/Assessment Assessment: Decreased Activ Tolerance, Decreased UE Strength, Impaired I ADL's, Impaired Self-Care Skills Discharge Recommendations Plan/Recommendations: Continue POC Equpiment Recommendations-D/C: Parking Lot Signaler Treatment Plan/Plan of Care Treatment,Training & Education: Yes Patient would benefit from OT for education, treatment and training to promote independence in ADL's, mobility, safety and/or upper extremity function for ADL's. Plan of Care: ADL Retraining, Caregiver Training, Concurrent Therapy, Functional Mobility, Group Exercise/Act as Ind, UE Funct Exercise/Act Treatment Duration: Jul 14, 2019 Frequency: At least 5 of 7 days/Wk (IRF) Estimated Hrs Per Day: 1.5 hours per day Agreement: Yes Rehab Potential: Fair Time/GCodes Start Time: 09:30 Stop Time: 10:00 Total Time Billed (hr/min): 30 Billed Treatment Time 1, ADL (15), FA (15)= 30 BRENNON HIGGINS OTR Jul 04, 2019 13:21
--- NOTE | 2019-07-04 13:30 | Occupational Ther Daily Note ---
OT Current Status-Daily Note Subjective Pt seen supine in bed, HOB raised. Pt agreeable to OT tx session, no pain stated. Mental Status/Objective Patient Orientation: Normal For Age Attachments: IV ADL-Treatment Therapy Code Descriptions/Definitions Functional [place] Measure: 0=Not Assessed/NA 4=Minimal Assistance 1=Total Assistance 5=Supervision or Setup 2=Maximal Assistance 6=Modified [place] 3=Moderate Assistance 7=Complete IndependenceSCALE: Activities may be completed with or without assistive devices. 6-Plbaxvozay-szsuikh completes the activity by him/herself with no assistance from a helper. 5-Set-up or Clean-up Assistance-helper sets up or cleans up; patient completes activity. [place] assists only prior to or following the activity. 4-Supervision or Touching Assistance-helper provides verbal cues and/or touching/steadying and/or contact guard assistance as patient completes activity. Assistance may be provided throughout the activity or intermittently. 3-Partial/Moderate Assistance-helper does LESS THAN HALF the effort. [place] lift s, holds or supports trunk or limbs, but provides less than half the effort. 2-Substantial/Maximal Assistance-helper does MORE THAN HALF the effort. [place] lifts or holds trunk or limbs and provides more than half the effort. 1-Ijsowmuif-ovqbms does ALL the effort. Patient does none of the effort to complete the activity. Or, the assistance of 2 or more helpers is required for the patient to complete the activity. If activity was not attempted, code reason: 7-Patient Refused. 9-Not Applicable-not attempted and the patient did not perform the activity before the current illness, exacerbation or injury. 10-Not Attempted due to Environmental Limitations-(lack of equipment, weather restraints, etc.). 88-Not Attempted due to Medical Conditions or Safety Concerns. Eating (QC): 6 (Pt drinks tea from cup) Upper Body Dressing (QC): 5 (s/u snapping for gown, SBA during donning in stance.) Lower Body Dressing (QC): 5 (SBA) Toileting Hygiene (QC): 5 (SUP in stance) Toilet Transfer (QC): 5 (SUP) Other Treatment Pt ambulates with FWW to therapy gym. Pt completes 10 minutes of arm bike with minimal resistance. Pt requires rest at points 2.5 min, 5 min, 8 minutes. Pt ambulates without FWW with good standing balance to mat. Pt completes back stretching, torso twists to tolerance (~20* from neutral per side), and UE exercises with 2 and 3# weights. Pt completes bicep, anterior deltoid, back and external rotation exercises with differing rep #. Pt throws across room with increasing lengths to determine repetitions. Pt c/o back pain. Pt sit to stand with SUP and transfers to chair with back. Pt states her back is "as good as it was before here," but pt states she was wearing a back brace prior due to pain. Pt states she have assist completing IADLs once home. Pt ambulates with FWW to bedroom, returns to bed with SUP; call light in reach, all needs met. Education OT Patient Education: Correct positioning, Exercise program, Home exercise program, Modified ADL techniques, Purpose of tx/functional activities, Safety issues, Use of adapted equipment Teaching Recipient: Patient Teaching Methods: Demonstration, Discussion Response to Teaching: Verbalize Understanding, Return Demonstration OT Short Term Goals Short Term Goals Eating(FIM): 4 (met) Upper Body Dressing(FIM): 2 (met) Lower Body Dressing(FIM): 2 (met) Additional Short Term Goals: 1-Demonstrate ADL Tasks, 2-Verbalize Understanding, 3-ImproveStrength/Carmina 1=Demonstrate adherence to instructed precautions during ADL tasks. 2=Patient will verbalize/demonstrate understanding of assistive devices/modifications for ADL. 3=Patient will improve strength/tolerance for activity to enable patient to perform ADL's. OT Temporary Receptionist Goals Temporary Receptionist Goals Eating (QC): 6 (met) Oral Hygiene (QC): 6 Shower/Bathe Self (QC): 5 Upper Body Dressing (QC): 6 (met) Lower Body Dressing (QC): 6 On/Off Footwear (QC): 6 Toileting Hygiene (QC): 6 Toilet/Commode Transfer (QC): 6 Additional Goals: 1-Demonstrate ADL Tasks, 2-Verbalize Understanding, 3-Imp roveStrength/Car[place] 1=Demonstrate adherence to instructed precautions during ADL tasks. 2=Patient will verbalize/demonstrate understanding of assistive devices/modifications for ADL. 3=Patient will improve strength/tolerance for activity to enable patient to perform ADL's. OT Education/Plan Problem List/Assessment Assessment: Decreased Activ Tolerance, Decreased UE Strength, Impaired I ADL's, Impaired Self-Care Skills Discharge Recommendations Plan/Recommendations: Continue POC Treatment Plan/Plan of Care Treatment,Training & Education: Yes Patient would benefit from OT for education, treatment and training to promote independence in ADL's, mobility, safety and/or upper extremity function for ADL's. Plan of Care: ADL Retraining, Caregiver Training, Concurrent Therapy, Functional Mobility, Group Exercise/Act as Ind, UE Funct Exercise/Act Treatment Duration: Jul 14, 2019 Frequency: At least 5 of 7 days/Wk (IRF) Estimated Hrs Per Day: 1.5 hours per day Agreement: Yes Rehab Potential: Fair Time/GCodes Start Time: 11:00 Stop Time: 12:00 Total Time Billed (hr/min): 60 Billed Treatment Time 1, ADL (10), EX (50)= 60 BRENNON HIGGINS OTR Jul 04, 2019 13:30
--- NOTE | 2019-07-04 15:07 | Physical Therapy Daily Note ---
PT Daily Note-Current Subjective Pt reports just getting back to bed after using restroom upon FREIGHT CLERK arrival. PT agrees to Supine EX. Pain Numeric Pain Scale: 5-Moderate Pain Location: Incisional Location Body Site: Abdomen Pain Description: Ache, Tightness Mental Status Patient Orientation: Person, Place, Time, Situation Attachments: Drains, IV Transfers SCALE: Activities may be completed with or without assistive devices. 8-Rmcyyvrhuc-elbcnoo completes the activity by him/herself with no assistance from a helper. 5-Set-up or Clean-up Assistance-helper sets up or cleans up; patient completes activity. [place] assists only prior to or following the activity. 4-Supervision or Touching Assistance-helper provides verbal cues and/or touching/steadying and/or contact guard assistance as patient completes activity. Assistance may be provided throughout the activity or intermittently. 3-Partial/Moderate Assistance-helper does LESS THAN HALF the effort. [place] lifts, holds or supports trunk or limbs, but provides less than half the effort. 2-Substantial/Maximal Assistance-helper does MORE THAN HALF the effort. [place] lifts or holds trunk or limbs and provides more than half the effort. 0-Bwvxlnzxj-poauae does ALL the effort. Patient does none of the effort to complete the activity. Or, the assistance of 2 or more helpers is required for the patient to complete the activity. If activity was not attempted, code reason: 7-Patient Refused. 9-Not Applicable-not attempted and the patient did not perform the activity b efore the current illness, exacerbation or injury. 10-Not Attempted due to Environmental Limitations-(lack of equipment, weather restraints, etc.). 88-Not Attempted due to Medical Conditions or Safety Concerns. Roll Left to Right (QC): 5 Sit to Lying (QC): 5 Sit to Stand (QC): 5 Weight Bearing Full Weight Bearing Full Weight Bearing Gait Training Does the Patient Walk?: Yes Gait: 4 Distance: 15' Walk 10 feet (QC): 4 Gait Persons Needed: 1 Gait Assistive Device: None Pt needs to use restroom during Rx. Wheelchair Training Does the Pt Use a Wheelchair?: No Exercises Supine Ex: Ankle pumps, Quad Set, Heel Slides, Hip abd/add Supine Reps: 15 Treatments Pt completes Supine EX before needing to use restroom. Pt returns to bed at end of tx, resting Supine. Pt has all needs met, call light in hand. Assessment Current Status: Good Progress Pt is stronger and more independent with mobility. PT Short Term Goals Short Term Goals Time Frame: Jul 07, 2019 Gait Distance Comment: 50' Gait Assistive Device: FWW (SBA ) PT Fci Goals Fci Goals PT Fci Goals Time Frame: Jul 21, 2019 Sit to Lying (QC): 4 (SBA) Lying-Sitting on Side/Bed(QC): 4 (SBA) Sit to Stand (QC): 4 (SBA) Roll Left to Right (QC): 4 (SBA) Chair/Qnq-lb-Laghh Xfer(QC): 4 (SBA) Car Transfer (QC): 4 (SBA) Distance: 150' Walk 10 feet (QC): 4 (SBA) Walk 10ft-Uneven Surface(QC): 4 (SBA) Walk 50ft with 2 Turns (QC): 4 (SBA) Walk 150 ft (QC): 4 (SBA) Gait Assistive Device: FWW # of Steps: 4 1 Step (curb) (QC): 4 4 Steps (QC): 4 Picking up an Object (QC): 4 PT Plan Problem List Problem List: Activity Tolerance Treatment/Plan Treatment Plan: Continue Plan of Care Treatment Plan: Bed Mobility, Education, Functional Activity [place], Functional Strength, Group Therapy, Gait, Safety, Therapeutic Exercise, Transfers Treatment Duration: Jul 21, 2019 Frequency: At least 5 of 7 days/Wk (IRF) Estimated Hrs Per Day: 1.5 hours per day Patient and/or Family Agrees t: Yes Safety Risks/Education Patient Education: Gait Training, Transfer Techniques, Correct Positioning, Safety Issues Teaching Recipient: Patient Teaching Methods: Discussion Response to Teaching: Verbalize Understanding Time/GCodes Time In: 1400 Time Out: 1430 Total Billed Treatment Time: 30 Total Billed Treatment 1, EX x2 (30m) ALF PITTS FREIGHT CLERK Jul 04, 2019 15:06
[2019-07-04 16:12] VITALS: BP 154/83
[2019-07-04] MEDS: ENOXAPARIN 40 MG/0.4 ML (LOVENOX) SYR SC SCH (16:31)
[2019-07-04] MEDS: SODIUM CHLORIDE IV SCH ×11 (17:14)
[2019-07-04] MEDS: SODIUM ACETATE IV SCH ×11 (17:14)
[2019-07-04] MEDS: [UNRECOGNIZED DRUG - OTHER] IV SCH ×11 (17:14)
--- NOTE | 2019-07-04 17:44 | Progress Note - Surgery ---
[facility] 07/04/19 1744: Subjective Date Seen by a Provider: Jul 04, 2019 Time Seen by a Provider: 17:20 Subjective/Events-last exam Patient states she is doing much better. Her sore throat has mostly resolved and her abdominal pain is stated as sore muscles. She states that she did have nausea and vomiting last night which caused some pain but the pain, nausea and vomiting has since resolved. Patient had 1 BM today and she states it was normal. Patient had two BM yesterday. Review of Systems General: No Chills, No Other (fevers) Pulmonary: No Dyspnea, No Cough Cardiovascular: No: Chest Pain Gastrointestinal: Nausea (last night), Vomiting (last night), Abdominal Pain (soreness) Objective Exam Vital Signs Date Time Temp Pulse Resp B/P (MAP) Pulse Ox O2 Delivery O2 Flow Rate FiO2 07/04/19 16:12 36.2 90 14 154/83 (106) 99 Room Air 07/04/19 08:39 95 Room Air 07/04/19 08:32 Room Air 07/04/19 06:13 20 07/04/19 05:18 36.3 95 20 160/89 (112) 96 Room Air 07/03/19 21:00 Room Air 07/03/19 18:55 Room Air 07/03/19 18:26 20 I & O 07/04/19 07:00 Intake Total 2370 ml Output Total 1940 ml Balance 430 ml Capillary Refill : General Appearance: No Apparent Distress, WD/WN HEENT: PERRL/EOMI Neck: Normal Inspection, Non Tender, Supple Respiratory: Chest Non Tender, No Accessory Muscle Use, No Respiratory Distress Cardiovascular: Regular Rate, Rhythm, Normal Peripheral Pulses Peripheral Pulses: 2+ Radial Pulses (R), 2+ Radial Pulses (L) Gastrointestinal: soft, tenderness (incisional, c/d/i trae drains serous), other (80 ml of drainage from JG drains) Extremity: No Calf Tenderness Neurologic/Psychiatric: Alert, Oriented x3, Normal Mood/Affect Skin: Normal Color, Warm/Dry Lymphatic: No Adenopathy Results Lab Laboratory Tests 07/03/19 17:53: Glucometer 192H 07/04/19 00:43: Glucometer 185H 07/04/19 05:56: Glucometer 148H 07/04/19 12:25: Glucometer 194H Assessment/Plan Assessment/Plan Assessment/Plan s/p sudhir patch for GI perforation nausea and vomiting Discontinue TPN tomorrow monitor n/v, continue ondansetron Clinical Quality Measures DVT/VTE Risk/Contraindication: Risk Factor Score Per Nursin RFS Level Per Nursing on Admit: 4+=Very High ROBYN TAYLOR DO 07/04/192047: Subjective Subjective/Events-last exam Patient doing okay had some nausea, but resolved. She states she's tolerating diet. Drains with serous drainage. Slight abdominal discomfort, but feels this is more related to muscles. Denies n/v fever sweats chills shortness of breath or chest pain at this time. Objective Exam General Appearance: No Apparent Distress HEENT: PERRL/EOMI Neck: Normal Inspection Respiratory: Chest Non Tender, No Accessory Muscle Use, No Respiratory Distress Cardiovascular: Regular Rate, Rhythm Gastrointestinal: soft, tenderness (incisional, c/d/i trae drains serous) Neurologic/Psychiatric: Alert, Oriented x3 Skin: Normal Color, Warm/Dry Lymphatic: No Adenopathy Assessment/Plan Assessment/Plan Assessment/Plan s/p grham patch for gastric pouch perforation nausea and vomiting tolerating diet weaning tpn continue protonix will need egj in near futrure keep trae drains in until less than 30mL in 24 hours only removing one day at a t nicko if meets that criteria. patient understands plan. Supervisory-Addendum Brief Verification & Attestation Participated in pt care: history, MDM, physical Personally performed: exam, history, MDM, supervision of care Care discussed with: Medical Student Procedures: n/a Results interpretation: Verified all documentation Verification and Attestation of Medical Student E/M Service A medical student performed and documented this service in my presence. I reviewed and verified all information documented by the medical student and made modifications to such information, when appropriate. I personally performed the physical exam and medical decision making. Robyn Taylor, Jul 04, 2019,20:48 [facility] Jul 04, 2019 17:44 ROBYN TAYLOR DO Jul 04, 2019 20:48
[2019-07-04] MEDS: SERTRALINE 100 MG (ZOLOFT) TAB PO SCH (20:51)
[2019-07-04] MEDS: toPIRamate 25 MG (TOPAMAX) TAB PO SCH (20:51)
[2019-07-04] MEDS: rOPINIRole 1 MG (REQUIP) TABLET PO SCH (20:51)
[2019-07-05] MEDS: inSUlin ASPART (NovoLOG) 1 UNIT/0.01 ML (CHARGE PER UNIT) SC SCH ×5 (00:05→21:00)
[2019-07-05] MEDS: ACETAMINOPHEN 500 MG TAB (TYLENOL) PO PRN (03:59)
[2019-07-05 05:11] VITALS: BP 168/89
[2019-07-05] MEDS: LACTATED RINGERS 1,000 ML IV SCH ×2 (05:46→18:58)
[2019-07-05] MEDS: RT-ALBUTEROL SULF 2.5 MG/3 ML PRE-MIX VIAL INH SCH (07:45)
--- NOTE | 2019-07-05 09:24 | Physical Therapy Daily Note ---
PT Daily Note-Current Subjective Pt. agrees to Rx and states she feels stronger every day. Pt. feels she could go home if she did not have all these tubes Pain Numeric Pain Scale: 3 Location: Medial Location Body Site: Abdomen Pain Description: Cramping Mental Status Patient Orientation: Normal For Age Attachments: Drains, IV Transfers SCALE: Activities may be completed with or without assistive devices. 4-Bopavhrfxn-zmcylzl completes the activity by him/herself with no assistance from a helper. 5-Set-up or Clean-up Assistance-helper sets up or cleans up; patient completes activity. [place] assists only prior to or following the activity. 4-Supervision or Touching Assistance-helper provides verbal cues and/or touching/steadying and/or contact guard assistance as patient completes activity. Assistance may be provided throughout the activity or intermittently. 3-Partial/Moderate Assistance-helper does LESS THAN HALF the effort. [place] lifts, holds or supports trunk or limbs, but provides less than half the effort. 2-Substantial/Maximal Assistance-helper does MORE THAN HALF the effort. [place] lifts or holds trunk or limbs and provides more than half the effort. 1-Kzrualzto-jirhyc does ALL the effort. Patient does none of the effort to complete the activity. Or, the assistance of 2 or more helpers is required for the patient to complete the activity. If activity was not attempted, code reason: 7-Patient Refused. 9-Not Applicable-not attempted and the patient did not perform the activity before the current illness, exacerbation or injury. 10-Not Attempted due to Environmental Limitations-(lack of equipment, weather restraints, etc.). 88-Not Attempted due to Medical Conditions or Safety Concerns. Transfers (B, C, W/C): 6 Roll Left to Right (QC): 6 Sit to Lying (QC): 6 Sit to Stand (QC): 6 Chair/Gqz-uc-Vrlgj Xfer(QC): 6 Bed to/from Chair: 6 Car Transfer (QC): 6 Weight Bearing Full Weight Bearing Full Weight Bearing Gait Training Does the Patient Walk?: Yes Gait: 5 Walk 10 feet (QC): 5 Walk 50 ft with 2 Turns(QC): 5 Walk 150 ft (QC): 5 Gait Persons Needed: 1 Gait Assistive Device: FWW pt. ambulated with and without AD, SBA slow, instructed in arm swing to improve balance as well as noting that she may fatigue more easily without AD and notice abdominal discomfort / soreness but to eventually work up to this Stair Training Stair Training: Handrails/: 1 handrail #of Steps: 4 4 Steps (QC): 5 Stairs: Pattern: Reciprocal Level of Assist: 5 pt. in home situation has only side of house to hold on to but used single rail to simulate this Exercises Supine Ex: Ankle pumps, Quad Set, Rolling, Glut sets, Heel Slides, Scooting, Straight leg raise, Hip abd/add Supine Reps: 15 Seated Therapy Exercises: Ankle pumps, Sit to stand, Long arc quads, Hip flexion, Hip abd/add Seated Reps: 12 Standing: Hip Abduction, Hamstring curls, Heel/toe raises, Marching, Mini squats Standing Reps: 12 NuStep Minutes: 8 NuStep Workload: 4 Assessment Current Status: Good Progress emphasized progressing to gait without device as well as pt. pushing the IVs herself for stability to practice possible up ad al status PT Short Term Goals Short Term Goals Time Frame: Jul 07, 2019 Gait Distance Comment: 50' Gait Assistive Device: FWW (SBA ) PT Assisted Goals Assisted Goals PT Cms Expert Goals Time Frame: Jul 21, 2019 Sit to Lying (QC): 4 (SBA) Lying-Sitting on Side/Bed(QC): 4 (SBA) Sit to Stand (QC): 4 (SBA) Roll Left to Right (QC): 4 (SBA) Chair/Gvg-fn-Affsx Xfer(QC): 4 (SBA) Car Transfer (QC): 4 (SBA) Distance: 150' Walk 10 feet (QC): 4 (SBA) Walk 10ft-Uneven Surface(QC): 4 (SBA) Walk 50ft with 2 Turns (QC): 4 (SBA) Walk 150 ft (QC): 4 (SBA) Gait Assistive Device: FWW # of Steps: 4 1 Step (curb) (QC): 4 4 Steps (QC): 4 Picking up an Object (QC): 4 PT Plan Treatment/Plan Treatment Plan: Bed Mobility, Education, Functional Activity [place], Functional Strength, Group Therapy, Gait, Safety, Therapeutic Exercise, Transfers Treatment Duration: Jul 21, 2019 Frequency: At least 5 of 7 days/Wk (IRF) Estimated Hrs Per Day: 1.5 hours per day Patient and/or Family Agrees t: Yes Safety Risks/Education Patient Education: Gait Training, Transfer Techniques, Steps, Correct Positioning, Disease Process, Safety Issues Teaching Recipient: Patient Teaching Methods: Demonstration, Discussion Response to Teaching: Verbalize Understanding, Return Demonstration, Reinforcement Needed Time/GCodes Time In: 750 Time Out: 920 Total Billed Treatment Time: 90 Total Billed Treatment 1,EX30m,GT25m,FA35m PALMER JARAMILLO EVS TECH Jul 05, 2019 09:24
--- NOTE | 2019-07-05 09:26 | PM&R Progress Note ---
Subjective HPI/CC On Admission Date Seen by Provider: Jul 05, 2019 Time Seen by Provider: 08:45 CC: Debility requiring inpatient rehab admission HPI: This is a 49yoWF who is s/p septic shock ICU status emergent surgery for gastric perforation maintained on TPN and severe weakness requiring inpatient rehab prior to returning home. Currently she is able to tolerate a few ounces of intake at a time but Dr. Taylor wants her to go very slowly. Pain is better controlled and she is willing to participate in PT in order to ultimately return home. PLOF was independent. Patient does have situational depression currently and we will aggressively treat this to aid in recovery. Subjective/Events-last exam Pt doing very well. TPN will be discontinued today at 1700 Pain is doing much better. 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 Checked meds and labs. Tolerating Venofer, second dose today. Bowels are moving. Checked meds and labs Conferred with spray crew therapy notes Review of Systems Gastrointestinal: Abdominal Pain Objective Exam Vital Signs Vital Signs Date Time Temp Pulse Resp B/P (MAP) Pulse Ox O2 Delivery O2 Flow Rate FiO2 07/05/19 06:30 20 07/05/19 05:11 36.2 95 168/89 (115) 98 Room Air Capillary Refill : General Appearance: No Apparent Distress, WD/WN, Chronically ill HEENT: PERRL/EOMI, Normal ENT Inspection, Pharynx Normal Neck: Full Range of Motion, Normal Inspection, Non Tender, Supple Respiratory: Chest Non Tender, Lungs Clear, Normal Breath Sounds, No Accessory Muscle Use, No Respiratory Distress Cardiovascular: Regular Rate, Rhythm, No Edema, No Gallop, No JVD, No Murmur, Normal Peripheral Pulses Gastrointestinal: Normal Bowel Sounds, No Organomegaly, No Pulsatile Mass, Soft, Tenderness Back: Normal Inspection, No CVA Tenderness, No Vertebral Tenderness Extremity: Normal Capillary Refill, Normal Inspection, Normal Range of Motion, Non Tender, No Calf Tenderness Neurologic/Psychiatric: Alert, Oriented x3, No Motor/Sensory Deficits, lead cargo mover II- XII Norm as Tested, Depressed Affect Skin: Normal Color, Warm/Dry Lymphatic: No Adenopathy Results/Procedures Lab Patient resulted labs reviewed. FIM Transfers Therapy Code Descriptions/Definitions Functional [place] Measure: 0=Not Assessed/NA 4=Minimal Assistance 1=Total Assistance 5=Supervision or Setup 2=Maximal Assistance 6=Modified [place] 3=Moderate Assistance 7=Complete IndependenceSCALE: Activities may be completed with or without assistive devices. 4-Jndllycgnu-cljfvby completes the activity by him/herself with no assistance from a helper. 5-Set-up or Clean-up Assistance-helper sets up or cleans up; patient completes activity. [place] assists only prior to or following the activity. 4-Supervision or Touching Assistance-helper provides verbal cues and/or tenisha juan/steadying and/or contact guard assistance as patient completes activity. Assistance may be provided throughout the activity or intermittently. 3-Partial/Moderate Assistance-helper does LESS THAN HALF the effort. [place] lifts, holds or supports trunk or limbs, but provides less than half the effort. 2-Substantial/Maximal Assistance-helper does MORE THAN HALF the effort. [place] lifts or holds trunk or limbs and provides more than half the effort. 4-Pqvocdicd-zydtes does ALL the effort. Patient does none of the effort to complete the activity. Or, the assistance of 2 or more helpers is required for the patient to complete the activity. If activity was not attempted, code reason: 7-Patient Refused. 9-Not Applicable-not attempted and the patient did not perform the activity before the current illness, exacerbation or injury. 10-Not Attempted due to Environmental Limitations-(lack of equipment, weather restraints, etc.). 88-Not Attempted due to Medical Conditions or Safety Concerns. Transfers (B, C, W/C) (FIM): 4 Roll Left to Right (QC): 5 Sit to Lying (QC): 5 Sit to Stand (QC): 5 Chair/Ljf-lh-Ovmvp Xfer(QC): 5 Bed to/from Chair: 5 Car Transfer (QC): 5 Gait Training Does the Patient Walk?: Yes Gait (FIM): 4 Distance: 15' Walk 10 feet (QC): 4 Walk 50 ft with 2 Turns(QC): 5 Walk 150 ft (QC): 5 Gait Persons Needed: 1 Gait Assistive Device: None Wheelchair Training Does the Pt Use a Wheelchair?: No Stair Training Stair Training: Handrails/: 2 handrails #of Steps: 4 4 Steps (QC): 5 Stairs: Pattern: Step to Level of Assist: 5 ADL-Treatment Eating (QC): 6 (Pt drinks tea from cup) Oral Hygiene (QC): 5 (SBA at sink. ) Shower/Bathe Self (QC): 3 (Pt completes washing UE, abdomen (avoiding dressi ngs), and LE with long handled sponge with mod I in chair. Pt requires assist reaching back and drying back. ) Upper Body Dressing (QC): 5 (s/u snapping for gown, SBA during donning in stance.) Lower Body Dressing (QC): 5 (SBA) Toileting Hygiene (QC): 5 (SUP in stance) Toilet Transfer (QC): 5 (SUP) Assessment/Plan Assessment and Plan Assess & Plan/Chief Complaint Assessment: Severe debility s/p septic shock s/p gastric perforation s/p gastric bypass remotely Anemia Hyperglycemia Depression Post op ileus resolving with BM on 07/04/19 On TPN and will discontinue tonight Plan: Monitor closely TPN DC PO intake Pain control (1) Septic shock Status: Resolved Resolution Date/Time: 06/30/19 @ 14:48 (2) Gastrointestinal perforation Status: Resolved (3) Nausea and vomiting Status: Acute (4) Ileus following gastrointestinal surgery (5) On total parenteral nutrition (6) Anemia (7) Hyperglycemia (8) Depressed DIONICIO TURNER DO Jul 05, 2019 09:26
[2019-07-05] MEDS: PANTOPRAZOLE 40 MG (PROTONIX) VIAL IV SCH ×2 (11:00→21:01)
[2019-07-05] MEDS: IRON SUCROSE 200 MG/10 ML (VENOFER) VIAL IV SCH (11:08)
[2019-07-05] MEDS: FLUCONAZOLE 200 MG/100 ML 100 ML IV SCH (11:18)
--- NOTE | 2019-07-05 11:24 | Occupational Ther Daily Note ---
OT Current Status-Daily Note Subjective Pt seen in recliner chair, pt states minimal pain/ "discomfort" in abdomen on this date. Pt agreeable to OT tx session. Mental Status/Objective Patient Orientation: Normal For Age Attachments: IV ADL-Treatment Therapy Code Descriptions/Definitions Functional [place] Measure: 0=Not Assessed/NA 4=Minimal Assistance 1=Total Assistance 5=Supervision or Setup 2=Maximal Assistance 6=Modified [place] 3=Moderate Assistance 7=Complete IndependenceSCALE: Activities may be completed with or without assistive devices. 0-Qshoxigcjc-lrquekg completes the activity by him/herself with no assistance from a helper. 5-Set-up or Clean-up Assistance-helper sets up or cleans up; patient completes activity. [place] assists only prior to or following the activity. 4-Supervision or Touching Assistance-helper provides verbal cues and/or touching/steadying and/or contact guard assistance as patient completes a ctivity. Assistance may be provided throughout the activity or intermittently. 3-Partial/Moderate Assistance-helper does LESS THAN HALF the effort. [place] lifts, holds or supports trunk or limbs, but provides less than half the effort. 2-Substantial/Maximal Assistance-helper does MORE THAN HALF the effort. [place] lifts or holds trunk or limbs and provides more than half the effort. 4-Vvwbxtnsf-enjlia does ALL the effort. Patient does none of the effort to complete the activity. Or, the assistance of 2 or more helpers is required for the patient to complete the activity. If activity was not attempted, code reason: 7-Patient Refused. 9-Not Applicable-not attempted and the patient did not perform the activity before the current illness, exacerbation or injury. 10-Not Attempted due to Environmental Limitations-(lack of equipment, weather restraints, etc.). 88-Not Attempted due to Medical Conditions or Safety Concerns. Eating (QC): 6 Oral Hygiene (QC): 6 (completes at sink ) Shower/Bathe Self (QC): 3 (Pt completes sponge bath on this date, requires assist with back. Pt reaches feet with "discomfort" and grimacing due to abdomen. Pt completes with min A.) Upper Body Dressing (QC): 4 (Intermittent assist with snaps due to IV on L arm. ) Lower Body Dressing (QC): 5 (Pt completes BLE sock doffing/ donning with SUP) Toileting Hygiene (QC): 6 Toilet Transfer (QC): 5 (SUP) Other Treatment Pt completes sponge bath/ hair washing on this date. Pt uses FWW to walk from room to therapy gym with SBA and assist with IV pole management. Pt completes 15 total minutes of arm bike with minimal resistance, pt requires break at 5 min and 10:55 min. Pt expresses that she is going to go home with and 's ye-yimkrs-ye-law; states and mother in law are agreeable to take care of home, cook, clean, and assist her with I/ADLs until she is ready to return to daily activities. Pt states she plans to wear pajamas once home. Upon questioning, pt states has missed her and that having her daughter bring pt's clothing from pt's parents' home to 's home must have helped him understand that she is coming home. Pt expresses has expressed more support than typical. Pt completes UE exercises with 3# weighted bar and 3# individual dumb-bells. Pt completes shoulder forward flexion, bicep curls, internal/ external rotation exercises (15 reps, 2 sets). Pt returns to room, able to return demonstrate 3/4 theraband exercises, with cues for positioning for 1/4 theraband exercises. Pt completes 1 set of 10 reps of 4/4 exercises. Pt left with nursing present, call light in reach, all needs met. Education OT Patient Education: Correct positioning, Exercise program, Home exercise pro gram, Modified ADL techniques, Purpose of tx/functional activities, Safety issues Teaching Recipient: Patient Teaching Methods: Demonstration, Discussion Response to Teaching: Verbalize Understanding, Return Demonstration, Reinforcement Needed OT Short Term Goals Short Term Goals Eating(FIM): 4 (met) Upper Body Dressing(FIM): 2 (met) Lower Body Dressing(FIM): 2 (met) Additional Short Term Goals: 1-Demonstrate ADL Tasks, 2-Verbalize Understanding, 3-ImproveStrength/[place] 1=Demonstrate adherence to instructed precautions during ADL tasks. 2=Patient will verbalize/demonstrate understanding of assistive devices/modifications for ADL. 3=Patient will improve strength/tolerance for activity to enable patient to perf orm ADL's. OT Chorus Dancer Goals Fdc Goals Eating (QC): 6 (met) Oral Hygiene (QC): 6 (met) Shower/Bathe Self (QC): 5 Upper Body Dressing (QC): 6 (met) Lower Body Dressing (QC): 6 On/Off Footwear (QC): 6 Toileting Hygiene (QC): 6 (met) Toilet/Commode Transfer (QC): 6 Additional Goals: 1-Demonstrate ADL Tasks, 2-Verbalize Understanding, 3- ImproveStrength/[place] 1=Demonstrate adherence to instructed precautions during ADL tasks. 2=Patient will verbalize/demonstrate understanding of assistive devices/modifications for ADL. 3=Patient will improve strength/tolerance for activity to enable patient to perform ADL's. OT Education/Plan Problem List/Assessment Assessment: Decreased Activ Tolerance, Decreased UE Strength, Impaired I ADL's, Impaired Self-Care Skills Discharge Recommendations Plan/Recommendations: Continue POC Treatment Plan/Plan of Care Treatment,Training & Education: Yes Patient would benefit from OT for education, treatment and training to promote independence in ADL's, mobility, safety and/or upper extremity function for ADL's. Plan of Care: ADL Retraining, Caregiver Training, Concurrent Therapy, Functional Mobility, Group Exercise/Act as Ind, UE Funct Exercise/Act Treatment Duration: Jul 14, 2019 Frequency: At least 5 of 7 days/Wk (IRF) Estimated Hrs Per Day: 1.5 hours per day Agreement: Yes Rehab Potential: Fair Time/GCodes Start Time: 09:30 Stop Time: 11:00 Total Time Billed (hr/min): 90 Billed Treatment Time 1, ADL 3(45), EX 3(45)= Total 90 BRENNON HIGGINS OTR Jul 05, 2019 11:24
--- NOTE | 2019-07-05 14:27 | NUR ---
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 Mcgee's orders. This RN and CECILIA Ghotra wasted 20ml's of Morphine into narcotic disposal bottle at this time. Will continue to monitor patient and pain level.
[2019-07-05] MEDS: HYDROcodone/APAP 5 MG/325 MG (LORTAB) TAB PO PRN ×2 (14:41→21:02)
--- NOTE | 2019-07-05 15:11 | Progress Note ---
ALEXA SOLIS MED STUDENT 07/05/19 1511: Progress Note CC: Septic shock and s/p sudhir patch for GI perforation * Admitted to rehab on TPN with severe weakness, abdominal pain, and situational depression. 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 * Since admission she has shown improvement in PT/OT, but still has issues with tasks that involve bending over due to her abdominal pain. * She continues to feel fatigued, has been started on iron infusions every other day. * Began reintroducing home medications. * Transitioning off of TPN, currently on dysphagia 2 diet. 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 Questionable whether will assist her in her medical needs on discharge home. * Today she reports having continued nausea but no vomiting, and continued muscular pain in her abdomen that she describes as being across her midgastric area. She continues to have sinus drainage and a headache she feels mostly in her forehead. * Next step: Scheduled to be fully off of TPN this afternoon, will continue with PT/OT to regain independence. Determine what living situation will be after discharge. KARYN TURNER DO 07/06/19 0903: Supervisory-Addendum Brief Verification & Attestation Participated in pt care: history, MDM, physical Personally performed: exam, history, MDM, supervision of care Care discussed with: Medical Student Procedures: n/a Results interpretation: Verified all documentation Verification and Attestation of Medical Student E/M Service A medical student performed and documented this service in my presence. I reviewed and verified all information documented by the medical student and made modifications to such information, when appropriate. I personally performed the physical exam and medical decision making. Karyn Turner, Jul 06, 2019,09:03 ALEXA SOLIS MED STUDENT Jul 05, 2019 15:11 KARYN TURNER DO Jul 06, 2019 09:03
--- NOTE | 2019-07-05 15:28 | NUR ---
Weekly Team Conference Attempted to meet with patient to discuss weekly team conference. Patient sleeping soundly in recliner. Nurse reports patient has worked hard today and stated she was going to take a nap. Will attempt visit later today.
--- NOTE | 2019-07-05 16:00 | NUR ---
Weekly Team Conference Attempted to meet with patient to discuss weekly team conference. Patient continues to sleep soundly in recliner. Will attempt to meet with patient tomorrow.
[2019-07-05] MEDS: [UNRECOGNIZED DRUG - OTHER] IV SCH ×11 (17:18)
[2019-07-05] MEDS: SODIUM CHLORIDE IV SCH ×11 (17:18)
[2019-07-05] MEDS: SODIUM ACETATE IV SCH ×11 (17:18)
[2019-07-05] MEDS: morphine INJ 4 MG/ML 1 ML (VIAL/SYRINGE) IVP PRN (17:47)
[2019-07-05 18:00] VITALS: BP 150/84
[2019-07-05] MEDS: ENOXAPARIN 40 MG/0.4 ML (LOVENOX) SYR SC SCH (18:58)
--- NOTE | 2019-07-05 19:16 | NUR ---
bedside report received from RUSTAM BROOKS, assume care of pt
[2019-07-05] MEDS: SERTRALINE 100 MG (ZOLOFT) TAB PO SCH (21:02)
[2019-07-05] MEDS: rOPINIRole 1 MG (REQUIP) TABLET PO SCH (21:02)
[2019-07-05] MEDS: toPIRamate 25 MG (TOPAMAX) TAB PO SCH (21:02)
--- NOTE | 2019-07-05 21:02 | NUR ---
cf/o pain level 7/10 on numeric scale, Lortab 5 1 tab po given, up to bathroom several times with standby assist, resting in chair at this time
--- NOTE | 2019-07-05 21:40 | NUR ---
resting quietly in chair, pain level 0/10 on flacc scale
[2019-07-06] MEDS: morphine INJ 4 MG/ML 1 ML (VIAL/SYRINGE) IVP PRN ×3 (00:19→23:15)
--- NOTE | 2019-07-06 00:19 | NUR ---
c/o pain level 8/10 on numeric scale, morphine 2mg iv given
--- NOTE | 2019-07-06 01:06 | NUR ---
resting quietly in the chair, pain level 0/10 on flacc scale
[2019-07-06] MEDS: HYDROcodone/APAP 5 MG/325 MG (LORTAB) TAB PO PRN ×5 (03:11→21:36)
--- NOTE | 2019-07-06 03:11 | NUR ---
c/o abd pain level 7/10 on numeric scale, Lortab 5 1 tab po given
--- NOTE | 2019-07-06 03:55 | NUR ---
resting quietly in the chair, pain level 0/10 on flacc scale
[2019-07-06 05:08] VITALS: BP 161/91
--- NOTE | 2019-07-06 05:32 | NUR ---
c/o abd pain level 8/10 on numeric scale, morphine 4mg iv given
[2019-07-06] MEDS: inSUlin ASPART (NovoLOG) 1 UNIT/0.01 ML (CHARGE PER UNIT) SC SCH ×4 (06:00→21:39)
--- NOTE | 2019-07-06 06:12 | NUR ---
resting quietly in bed, pain level 0/10 on flacc scale
[2019-07-06] MEDS: LACTATED RINGERS 1,000 ML IV SCH (07:04)
--- NOTE | 2019-07-06 07:19 | NUR ---
bedside report given gunjan EASTON RN
--- NOTE | 2019-07-06 08:15 | PM&R Progress Note ---
Subjective HPI/CC On Admission Date Seen by Provider: Jul 06, 2019 Time Seen by Provider: 08:30 CC: Debility requiring inpatient rehab admission HPI: This is a 49yoWF who is s/p septic shock ICU status emergent surgery for gastric perforation maintained on TPN and severe weakness requiring inpatient rehab prior to returning home. Currently she is able to tolerate a few ounces of intake at a time but Dr. Taylor wants her to go very slowly. Pain is better controlled and she is willing to participate in PT in order to ultimately return home. PLOF was independent. Patient does have situational depression currently and we will aggressively treat this to aid in recovery. Subjective/Events-last exam Now having increased pain since PT did work her core yesterday. Morphine of 4 Mg is being given for the pain. Will change Lortab to Q4hrs instead of Q8hrs. Will discontinue the lactated ringers that is running at 80 CCs per hour and will heplock that. DC Diflucan yesterday after eleven days. Bowels are moving. Checked meds and labs Conferred with business process consultant therapy notes Review of Systems General: Fatigue Gastrointestinal: Abdominal Pain Objective Exam Vital Signs Vital Signs Date Time Temp Pulse Resp B/P (MAP) Pulse Ox O2 Delivery O2 Flow Rate FiO2 07/06/19 19:15 Room Air 07/06/19 18:00 36.2 85 18 153/82 (105) 99 Capillary Refill : General Appearance: No Apparent Distress, WD/WN, Chronically ill HEENT: PERRL/EOMI, Normal ENT Inspection, Pharynx Normal Neck: Full Range of Motion, Normal Inspection, Non Tender, Supple Respiratory: Chest Non Tender, Lungs Clear, Normal Breath Sounds, No Accessory Muscle Use, No Respiratory Distress Cardiovascular: Regular Rate, Rhythm, No Edema, No Gallop, No JVD, No Murmur, Normal Peripheral Pulses Gastrointestinal: Normal Bowel Sounds, No Organomegaly, No Pulsatile Mass, Soft, Tenderness Back: Normal Inspection, No CVA Tenderness, No Vertebral Tenderness Extremity: Normal Capillary Refill, Normal Inspection, Normal Range of Motion, Non Tender, No Calf Tenderness Neurologic/Psychiatric: Alert, Oriented x3, No Motor/Sensory Deficits, custom protection officer II- XII Norm as Tested, Depressed Affect Skin: Normal Color, Warm/Dry Lymphatic: No Adenopathy Results/Procedures Lab Patient resulted labs reviewed. FIM Transfers Therapy Code Descriptions/Definitions Functional [place] Measure: 0=Not Assessed/NA 4=Minimal Assistance 1=Total Assistance 5=Supervision or Setup 2=Maximal Assistance 6=Modified [place] 3=Moderate Assistance 7=Complete IndependenceSCALE: Activities may be completed with or without assistive devices. 3-Azsimvpzps-rvujred completes the activity by him/herself with no assistance from a helper. 5-Set-up or Clean-up Assistance-helper sets up or cleans up; patient completes activity. [place] assists only prior to or following the activity. 4-Supervision or Touching Assistance-helper provides verbal cues and/or touching/steadying and/or contact guard assistance as patient completes activity. Assistance may be provided throughout the activity or intermittently. 3-Partial/Moderate Assistance-helper does LESS THAN HALF the effort. [place] lifts, holds or supports trunk or limbs, but provides less than half the effort. 2-Substantial/Maximal Assistance-helper does MORE THAN HALF the effort. [place] lifts or holds trunk or limbs and provides more than half the effort. 2-Paqgufvxe-dvboys does ALL the effort. Patient does none of the effort to complete the activity. Or, the assistance of 2 or more helpers is required for the patient to complete the activity. If activity was not attempted, code reason: 7-Patient Refused. 9-Not Applicable-not attempted and the patient did not perform the activity before the current illness, exacerbation or injury. 10-Not Attempted due to Environmental Limitations-(lack of equipment, weather restraints, etc.). 88-Not Attempted due to Medical Conditions or Safety Concerns. Transfers (B, C, W/C) (FIM): 6 Roll Left to Right (QC): 6 Sit to Lying (QC): 6 Sit to Stand (QC): 6 Chair/Out-ns-Hxotp Xfer(QC): 6 Bed to/from Chair: 6 Car Transfer (QC): 6 Gait Training Does the Patient Walk?: Yes Gait (FIM): 5 Distance: 15' Walk 10 feet (QC): 5 Walk 50 ft with 2 Turns(QC): 5 Walk 150 ft (QC): 5 Gait Persons Needed: 1 Gait Assistive Device: FWW Wheelchair Training Does the Pt Use a Wheelchair?: No Stair Training Stair Training: Handrails/: 1 handrail #of Steps: 4 4 Steps (QC): 5 Stairs: Pattern: Reciprocal Level of Assist: 5 ADL-Treatment Eating (QC): 6 Oral Hygiene (QC): 6 (completes at sink ) Shower/Bathe Self (QC): 3 (Pt completes sponge bath on this date, requires assist with back. Pt reaches feet with "discomfort" and grimacing due to abd omen. Pt completes with min A.) Upper Body Dressing (QC): 4 (Intermittent assist with snaps due to IV on L arm. ) Lower Body Dressing (QC): 5 (Pt completes BLE sock doffing/ donning with SUP) Toileting Hygiene (QC): 6 Toilet Transfer (QC): 5 (SUP) Assessment/Plan Assessment and Plan Assess & Plan/Chief Complaint Assessment: Severe debility s/p septic shock s/p gastric perforation s/p gastric bypass remotely Anemia Hyperglycemia Depression s/p pPost op ileus resolved s/p TPN Plan: Monitor closely TPN DC PO intake Pain control (1) Septic shock Status: Resolved Resolution Date/Time: 06/30/19 @ 14:48 (2) Gastrointestinal perforation Status: Resolved (3) Nausea and vomiting Status: Acute (4) Ileus following gastrointestinal surgery (5) On total parenteral nutrition (6) Anemia (7) Hyperglycemia (8) Depressed DIONICIO TURNER DO Jul 06, 2019 08:15
[2019-07-06] MEDS: PANTOPRAZOLE 40 MG (PROTONIX) VIAL IV SCH (08:55)
--- NOTE | 2019-07-06 09:40 | Occupational Ther Daily Note ---
OT Current Status-Daily Note Subjective Pt seen in bed, pt states she is "sore" in abdomen but no pain. Pt agreeable to OT tx session. Mental Status/Objective Patient Orientation: Normal For Age Attachments: IV IV disconnected by nursing at end of session. ADL-Treatment Therapy Code Descriptions/Definitions Functional [place] Measure: 0=Not Assessed/NA 4=Minimal Assistance 1=Total Assistance 5=Supervision or Setup 2=Maximal Assistance 6=Modified [place] 3=Moderate Assistance 7=Complete IndependenceSCALE: Activities may be completed with or without assistive devices. 5-Wdittfkeki-rqjmccm completes the activity by him/herself with no assistance from a helper. 5-Set-up or Clean-up Assistance-helper sets up or cleans up; patient completes activity. [place] assists only prior to or following the activity. 4-Supervision or Touching Assistance-helper provides verbal cues and/or touching/steadying and/or contact guard assistance as patient completes activity. Assistance may be provided throughout the activity or intermittently. 3-Partial/Moderate Assistance-helper does LESS THAN HALF the effort. [place] lifts, holds or supports trunk or limbs, but provides less than half the effort. 2-Substantial/Maximal Assistance-helper does MORE THAN HALF the effort. [place] lifts or holds trunk or limbs and provides more than half the effort. 4-Oothtcgnc-stcnpa does ALL the effort. Patient does none of the effort to complete the activity. Or, the assistance of 2 or more helpers is required for the patient to complete the activity. If activity was not attempted, code reason: 7-Patient Refused. 9-Not Applicable-not attempted and the patient did not perform the activity before the current illness, exacerbation or injury. 10-Not Attempted due to Environmental Limitations-(lack of equipment, weather restraints, etc.). 88-Not Attempted due to Medical Conditions or Safety Concerns. Eating (QC): 6 Oral Hygiene (QC): 6 Upper Body Dressing (QC): 6 (Completes with IND without IV threading.) Lower Body Dressing (QC): 5 (SUP on commode due to decreased energy levels. Pt able to thread BLE into breif and don with SUP) Toileting Hygiene (QC): 2 (Pt completes delia hygiene after BM, requires assist wiping from behind due to decreased strength and pt fatigued after BM) Toilet Transfer (QC): 6 (Pt completes with mod I to commode.) Other Treatment Pt's nurse notified of plan to go to 1st floor to gift shop. Pt navigates environment with good abilities and min cues for direction; pt navigates in small spaces inside gift shop with slow pace but good safety awareness. Pt rolls FWW on carpet with good control and mobility, states she has "low" carpet similar to 1st floor carpeting at home. Pt returns to ARU, completes standing endurance activity while completing fine motor game. Pt reads instructions and sets-up game with IND. Pt stands for 7 minutes; pt has BM in stance, states she thought she had gas. pt ambulates to commode, completes breif change, requires BM wiping assist. Pt returns to chair for rest break, pt states fatigued/ sore abdomen. Pt completes stretching/ AROM exercises while in chair to encourage movement and relaxation of UE as pt states neck/ back tight. Pt completes deep breathing exercises, educated on relaxation techniques and nervous system. Pt return-demonstrates relaxation techniques. Pt returns to stance, finishes fine motor game with good motor control and strength of hands; pt returns game pieces to box held in different planes with slow movements due to abdominal stretching and fatigue. Pt completes reaching beyond base of support with good dynamic standing balance. Pt returns to chair, pt's present end of session. Pt's states support of pt at home and understanding of pt needs. Pt left in recliner chair, call light in reach, all needs met. Education OT Patient Education: Correct positioning, Exercise program, Home exercise program, Instructions to caregiver, Modified ADL techniques, Purpose of tx/functional activities, Rehab process, Safety issues, Transfer techniques Teaching Recipient: Patient, Significant Other Teaching Methods: Demonstration, Discussion Response to Teaching: Verbalize Understanding, Return Demonstration OT Short Term Goals Short Term Goals Eating(FIM): 4 (met) Upper Body Dressing(FIM): 2 (met) Lower Body Dressing(FIM): 2 (met) Additional Short Term Goals: 1-Demonstrate ADL Tasks, 2-Verbalize Unde rstanding, 3-ImproveStrength/[place] 1=Demonstrate adherence to instructed precautions during ADL tasks. 2=Patient will verbalize/demonstrate understanding of assistive devices/modifications for ADL. 3=Patient will improve strength/tolerance for activity to enable patient to perform ADL's. OT Residential Goals Residential Goals Eating (QC): 6 (met) Oral Hygiene (QC): 6 (met) Shower/Bathe Self (QC): 5 Upper Body Dressing (QC): 6 (met) Lower Body Dressing (QC): 6 On/Off Footwear (QC): 6 Toileting Hygiene (QC): 6 (met) Toilet/Commode Transfer (QC): 6 (met) Additional Goals: 1-Demonstrate ADL Tasks, 2-Verbalize Understanding, 3- ImproveStrength/[place] 1=Demonstrate adherence to instructed precautions during ADL tasks. 2=Patient will verbalize/demonstrate understanding of assistive devices/modifications for ADL. 3=Patient will improve strength/tolerance for activity to enable patient to perform ADL's. OT Education/Plan Problem List/Assessment Assessment: Decreased Activ Tolerance, Decreased UE Strength, Impaired I ADL's, Impaired Self-Care Skills Discharge Recommendations Plan/Recommendations: Continue POC Therapy Discharge Recommendati: Intermittent Supervision Treatment Plan/Plan of Care Treatment,Training & Education: Yes Patient would benefit from OT for education, treatment and training to promote independence in ADL's, mobility, safety and/or upper extremity function for ADL's. Plan of Care: ADL Retraining, Caregiver Training, Concurrent Therapy, Functional Mobility, Group Exercise/Act as Ind, UE Funct Exercise/Act Treatment Duration: Jul 14, 2019 Frequency: At least 5 of 7 days/Wk (IRF) Estimated Hrs Per Day: 1.5 hours per day Agreement: Yes Rehab Potential: Fair Time/GCodes Start Time: 08:00 Stop Time: 09:30 Total Time Billed (hr/min): 90 Billed Treatment Time 1 ADLx2 (30), FAx3 (45), EX(15)= 90 BRENNON HIGGINS OTR Jul 06, 2019 09:40
--- NOTE | 2019-07-06 10:12 | NUR ---
Discussed discharge plan with patient. Patient states her preferred SNF provider is [facility]. Will make a referral to [facility] and ask for a office machines sales representative to come and speak with the patient. Tentative discharge date is 07/11/19. Addendum: 07/06/19 at 1023 by DELTA VELAZQUEZ RN Disregard previous note. Note entered on wrong patient.
--- NOTE | 2019-07-06 11:05 | Physical Therapy Daily Note ---
PT Daily Note-Current Subjective Pt sitting up in recliner upon arrival. Pt agrees to PT. Pain Numeric Pain Scale: 4 Location: Lower Location Body Site: Back Pain Description: Ache, Tightness Mental Status Patient Orientation: Person, Place, Time, Situation Attachments: [place] Transfers SCALE: Activities may be completed with or without assistive devices. 1-Mqmtcfonht-ohptkhn completes the activity by him/herself with no assistance from a helper. 5-Set-up or Clean-up Assistance-helper sets up or cleans up; patient completes activity. [place] assists only prior to or following the activity. 4-Supervision or Touching Assistance-helper provides verbal cues and/or touching/steadying and/or contact guard assistance as patient completes activity. Assistance may be provided throughout the activity or intermittently. 3-Partial/Moderate Assistance-helper does LESS THAN HALF the effort. [place] lifts, holds or supports trunk or limbs, but provides less than half the effort. 2-Substantial/Maximal Assistance-helper does MORE THAN HALF the effort. [place] lifts or holds trunk or limbs and provides more than half the effort. 6-Zjzevbijc-rcbsjf does ALL the effort. Patient does none of the effort to complete the activity. Or, the assistance of 2 or more helpers is required for the patient to complete the activity. If activity was not attempted, code reason: 7-Patient Refused. 9-Not Applicable-not attempted and the patient did not perform the activity before the current illness, exacerbation or injury. 10-Not Attempted due to Environmental Limitations-(lack of equipment, weather restraints, etc.). 88-Not Attempted due to Medical Conditions or Safety Concerns. Roll Left to Right (QC): 5 Sit to Lying (QC): 5 Sit to Stand (QC): 5 Chair/Ygt-zl-Ejkud Xfer(QC): 5 Bed to/from Chair: 5 Weight Bearing Full Weight Bearing Full Weight Bearing Gait Training Does the Patient Walk?: Yes Gait: 5 Distance: 150' x2 Walk 10 feet (QC): 5 Walk 50 ft with 2 Turns(QC): 5 Walk 150 ft (QC): 5 Gait Persons Needed: 1 Gait Assistive Device: FWW Wheelchair Training Does the Pt Use a Wheelchair?: No Stair Training Stair Training: Handrails/: 2 handrails #of Steps: 8 1 Step (curb) (QC): 5 4 Steps (QC): 5 Stairs: Pattern: Step to Level of Assist: 5 Exercises Supine Ex: Ankle pumps, Quad Set, Glut sets, Heel Slides, Short Arc Quads, Straight leg raise, Hip abd/add Supine Reps: 15 Seated Therapy Exercises: Ankle pumps, Long arc quads, Hip flexion, Kicking activity, Hamstring Curls Seated Reps: 15 NuStep Minutes: 15 (10m w/UE & LE, last 5m LE only) NuStep Workload: 5 Treatments Pt transfers to standing then ambulates in hallway. Pt uses NuStep for 15m at WL 5. Pt completes 2 sets of 4 steps. Pt completes Supine EX on Therapy mat then sits at EOM for Seated EX. Pt ambulates in hallway before returning to room to rest. Pt has all needs met, call light in hand. Assessment Current Status: Good Progress Pt tolerates Rx well but does report some pain with movement, fatigues needing occasional RB. PT Short Term Goals Short Term Goals Time Frame: Jul 07, 2019 Gait Distance Comment: 50' Gait Assistive Device: FWW (SBA ) PT Sound Technician Supervisor Goals Chcf Goals PT Sound Technician Supervisor Goals Time Frame: Jul 21, 2019 Sit to Lying (QC): 4 (SBA) Lying-Sitting on Side/Bed(QC): 4 (SBA) Sit to Stand (QC): 4 (SBA) Roll Left to Right (QC): 4 (SBA) Chair/Jec-fx-Nbtwm Xfer(QC): 4 (SBA) Car Transfer (QC): 4 (SBA) Distance: 150' Walk 10 feet (QC): 4 (SBA) Walk 10ft-Uneven Surface(QC): 4 (SBA) Walk 50ft with 2 Turns (QC): 4 (SBA) Walk 150 ft (QC): 4 (SBA) Gait Assistive Device: FWW # of Steps: 4 1 Step (curb) (QC): 4 4 Steps (QC): 4 Picking up an Object (QC): 4 PT Plan Problem List Problem List: Activity Tolerance, Functional Strength Treatment/Plan Treatment Plan: Continue Plan of Care Treatment Plan: Bed Mobility, Education, Functional Activity [place], Functional Strength, Group Therapy, Gait, Safety, Therapeutic Exercise, Transfers Treatment Duration: Jul 21, 2019 Frequency: At least 5 of 7 days/Wk (IRF) Estimated Hrs Per Day: 1.5 hours per day Patient and/or Family Agrees t: Yes Safety Risks/Education Patient Education: Gait Training, Transfer Techniques, Steps, Correct Positioning, Safety Issues Teaching Recipient: Patient Teaching Methods: Discussion Response to Teaching: Verbalize Understanding Time/GCodes Time In: 940 Time Out: 1110 Total Billed Treatment Time: 90 Total Billed Treatment 1, GT x2 (25m), EX x3 (50m) & FA (15m) ALF PITTS BACK MAKER Jul 06, 2019 11:05
[2019-07-06] MEDS: ALPRAZolam 0.25 MG (XANAX) TAB PO PRN (11:23)
--- NOTE | 2019-07-06 11:42 | Progress Note ---
ALEXA SOLIS MED STUDENT 07/06/19 1142: Progress Note C: Septic shock and s/p sudhir patch for GI perforation * Feeling better today, off of TPN, feels as if iron infusions are helping her fatigue. * Had just finished PT/OT when I saw her, reports doing well, improved mobility and less pain with abdominal muscles on bending. * Continues to have headache and sinus drainage that she attributes to allergies. * Also attributes headache to stress and anxiety, is anxious about not being home. * Having BMs, no constipation or diarrhea. * Reports having to urinate around every 1.5 hours, no pain on urination. * On auscultation, lungs CTAB, heart RRR, no murmurs, clicks, or gallops. * Mild edema on palpation of LE, no calf pain, 2+ pedal pulses. KARYN TURNER DO 07/06/192052: Supervisory-Addendum Brief Verification & Attestation Participated in pt care: history, MDM, physical Personally performed: exam, history, MDM, supervision of care Care discussed with: Medical Student Procedures: n/a Results interpretation: Verified all documentation Verification and Attestation of Medical Student E/M Service A medical student performed and documented this service in my presence. I reviewed and verified all information documented by the medical student and made modifications to such information, when appropriate. I personally performed the physical exam and medical decision making. Karyn Turner, Jul 06, 2019,20:52 ALEXA SOLIS MED STUDENT Jul 06, 2019 11:42 KARYN TURNER DO Jul 06, 2019 20:53
--- NOTE | 2019-07-06 14:54 | NUR ---
Weekly team conference Met with patient to discuss weekly team conference. Recommendation is to reevaluate patient's progress next Wednesday. Patient is agreeable to this plan. Patient reports she will discharge home with her spouse and that he will be able to provide assistance as needed. Continue plan of care.
[2019-07-06] MEDS: ENOXAPARIN 40 MG/0.4 ML (LOVENOX) SYR SC SCH (17:42)
[2019-07-06 18:00] VITALS: BP 153/82
--- NOTE | 2019-07-06 19:18 | NUR ---
bedside report received from RUSTAM BROOKS, assume care of pt
[2019-07-06] MEDS: toPIRamate 25 MG (TOPAMAX) TAB PO SCH (21:36)
[2019-07-06] MEDS: rOPINIRole 1 MG (REQUIP) TABLET PO SCH (21:36)
[2019-07-06] MEDS: PANTOPRAZOLE 40 MG (PROTONIX) TAB PO SCH (21:36)
[2019-07-06] MEDS: SERTRALINE 100 MG (ZOLOFT) TAB PO SCH (21:36)
--- NOTE | 2019-07-06 21:36 | NUR ---
c/o abd pain level 8/10 on numeric scale, Lortab 5 1 tab given
--- NOTE | 2019-07-06 23:15 | NUR ---
c/o pain to neck, shoulder & abd pain level 9/10 morphine 2mg iv given
--- NOTE | 2019-07-06 23:50 | NUR ---
resting quietly in bed, pain level 0/10 on flacc scale
[2019-07-07] MEDS: HYDROcodone/APAP 5 MG/325 MG (LORTAB) TAB PO PRN ×5 (02:11→19:48)
--- NOTE | 2019-07-07 02:11 | NUR ---
c/o abd pain level 7/10 on numeric scale, lortab 5 1 tab given
--- NOTE | 2019-07-07 02:50 | NUR ---
resting quietly in bed, pain level 0/10 on flacc scale
[2019-07-07 05:55] VITALS: BP 153/85
[2019-07-07] MEDS: inSUlin ASPART (NovoLOG) 1 UNIT/0.01 ML (CHARGE PER UNIT) SC SCH ×4 (06:00→20:03)
--- NOTE | 2019-07-07 06:01 | NUR ---
c/o abd pain level 8/10 on numeric scale, Lortab 5 1 tab given
[2019-07-07 06:14] LABS: HEMOGLOBIN 9.1 G/DL (11.5-16.0); MEAN PLATELET VOLUME 8.8 FL (7.4-10.4); RED CELL DISTRIBUTION WIDTH 15.9 % (10.0-14.5); WHITE BLOOD COUNT 3.9 10^3/uL (4.3-11.0)
--- NOTE | 2019-07-07 06:48 | NUR ---
resting quietly in bed, pain level 0/10 on flacc scale
--- NOTE | 2019-07-07 07:33 | NUR ---
bedside report given to JEFFREY BROOKS
--- NOTE | 2019-07-07 08:00 | NUR ---
Pt states she continues to have poor appetite. She requests pudding, which has been stocked on floor. Pt requests no acidic juices or milk. Pt likes to drink tea with splenda and water with ice. Pain has been controlled with Lortab.
[2019-07-07] MEDS: PANTOPRAZOLE 40 MG (PROTONIX) TAB PO SCH ×2 (08:24→20:03)
[2019-07-07] MEDS: IRON SUCROSE 200 MG/10 ML (VENOFER) VIAL IV SCH (08:25)
[2019-07-07] MEDS ORDERED: CATHETER FLUSH 10 ML SYR IV PRN (08:30)
--- NOTE | 2019-07-07 09:32 | PM&R Progress Note ---
Subjective HPI/CC On Admission Date Seen by Provider: Jul 07, 2019 Time Seen by Provider: 08:45 CC: Debility requiring inpatient rehab admission HPI: This is a 49yoWF who is s/p septic shock ICU status emergent surgery for ga stric perforation maintained on TPN and severe weakness requiring inpatient rehab prior to returning home. Currently she is able to tolerate a few ounces of intake at a time but Dr. Taylor wants her to go very slowly. Pain is better controlled and she is willing to participate in PT in order to ultimately return home. PLOF was independent. Patient does have situational depression currently and we will aggressively treat this to aid in recovery. Subjective/Events-last exam Pt is walking the halls with therapy with walker Poor appetite continues so pudding and snacks will be provided Lortab handling the pain Platelet count 359 Hgb 9.1 Urination has increased but we did give her a tremendous amount of IV fluids the last couple of weeks and likely she is diuresing Checked meds and labs Conferred with after school program assistant therapy notes Review of Systems Gastrointestinal: Abdominal Pain Objective Exam Vital Signs Vital Signs Date Time Temp Pulse Resp B/P (MAP) Pulse Ox O2 Delivery O2 Flow Rate FiO2 07/07/19 09:33 97 Room Air 07/07/19 05:55 36.2 90 18 153/85 (107) Capillary Refill : General Appearance: No Apparent Distress, WD/WN, Chronically ill HEENT: PERRL/EOMI, Normal ENT Inspection, Pharynx Normal Neck: Full Range of Motion, Normal Inspection, Non Tender, Supple Respiratory: Chest Non Tender, Lungs Clear, Normal Breath Sounds, No Accessory Muscle Use, No Respiratory Distress Cardiovascular: Regular Rate, Rhythm, No Edema, No Gallop, No JVD, No Murmur, Normal Peripheral Pulses Gastrointestinal: Normal Bowel Sounds, No Organomegaly, No Pulsatile Mass, Soft, Tenderness Back: Normal Inspection, No CVA Tenderness, No Vertebral Tenderness Extremity: Normal Capillary Refill, Normal Inspection, Normal Range of Motion, Non Tender, No Calf Tenderness Neurologic/Psychiatric: Alert, Oriented x3, No Motor/Sensory Deficits, gate watch II- XII Norm as Tested, Depressed Affect Skin: Normal Color, Warm/Dry Lymphatic: No Adenopathy Results/Procedures Lab Laboratory Tests 07/07/19 05:45 07/07/19 05:56 Patient resulted labs reviewed. FIM Transfers Therapy Code Descriptions/Definitions Functional [place] Measure: 0=Not Assessed/NA 4=Minimal Assistance 1=Total Assistance 5=Supervision or Setup 2=Maximal Assistance 6=Modified [place] 3=Moderate Assistance 7=Complete IndependenceSCALE: Activities may be completed with or without assistive devices. 2-Hgaskefrat-eoqihjm completes the activity by him/herself with no assistance from a helper. 5-Set-up or Clean-up Assistance-helper sets up or cleans up; patient completes activity. [place] assists only prior to or following the activity. 4-Supervision or Touching Assistance-helper provides verbal cues and/or touching/steadying and/or contact guard assistance as patient completes activity . Assistance may be provided throughout the activity or intermittently. 3-Partial/Moderate Assistance-helper does LESS THAN HALF the effort. [place] lifts, holds or supports trunk or limbs, but provides less than half the effort. 2-Substantial/Maximal Assistance-helper does MORE THAN HALF the effort. [place] lifts or holds trunk or limbs and provides more than half the effort. 7-Ekirbmvon-czdoit does ALL the effort. Patient does none of the effort to complete the activity. Or, the assistance of 2 or more helpers is required for the patient to complete the activity. If activity was not attempted, code reason: 7-Patient Refused. 9-Not Applicable-not attempted and the patient did not perform the activity before the current illness, exacerbation or injury. 10-Not Attempted due to Environmental Limitations-(lack of equipment, weather restraints, etc.). 88-Not Attempted due to Medical Conditions or Safety Concerns. Transfers (B, C, W/C) (FIM): 6 Roll Left to Right (QC): 5 Sit to Lying (QC): 5 Sit to Stand (QC): 5 Chair/Sfz-gv-Pjumx Xfer(QC): 5 Bed to/from Chair: 5 Car Transfer (QC): 6 Gait Training Does the Patient Walk?: Yes Gait (FIM): 5 Distance: 150' x2 Walk 10 feet (QC): 5 Walk 50 ft with 2 Turns(QC): 5 Walk 150 ft (QC): 5 Gait Persons Needed: 1 Gait Assistive Device: FWW Wheelchair Training Does the Pt Use a Wheelchair?: No Stair Training Stair Training: Handrails/: 2 handrails #of Steps: 8 1 Step (curb) (QC): 5 4 Steps (QC): 5 Stairs: Pattern: Step to Level of Assist: 5 ADL-Treatment Eating (QC): 6 Oral Hygiene (QC): 6 Shower/Bathe Self (QC): 3 (Pt completes sponge bath on this date, requires assist with back. Pt reaches feet with "discomfort" and grimacing due to abdomen. Pt completes with min A.) Upper Body Dressing (QC): 6 (Completes with IND without IV threading.) Lower Body Dressing (QC): 5 (SUP on commode due to decreased energy levels. Pt able to thread BLE into breif and don with SUP) Toileting Hygiene (QC): 2 (Pt completes delia hygiene after BM, requires assist wiping from behind due to decreased strength and pt fatigued after BM) Toilet Transfer (QC): 6 (Pt completes with mod I to commode.) Assessment/Plan Assessment and Plan Assess & Plan/Chief Complaint Assessment: Severe debility s/p septic shock s/p gastric perforation s/p gastric bypass remotely Anemia Hyperglycemia Depression s/p pPost op ileus resolved s/p TPN Plan: Monitor closely TPN DC PO intake to increase Continue Venofer until completed Pain control (1) Septic shock Status: Resolved Resolution Date/Time: 06/30/19 @ 14:48 (2) Gastrointestinal perforation Status: Resolved (3) Nausea and vomiting Status: Acute (4) Ileus following gastrointestinal surgery (5) On total parenteral nutrition (6) Anemia (7) Hyperglycemia (8) Depressed DIONICIO TURNER DO Jul 07, 2019 09:32
--- NOTE | 2019-07-07 09:32 | Occupational Ther Daily Note ---
OT Current Status-Daily Note Subjective Pt seen in bed, supine. Pt states no pain, but does c/o continued "soreness" of abdomen. Pt agreeable to OT tx session. By end of session, pt states sharp pains within lower anterior R side of abdomen with 8/10 pain. Nursing notified. Mental Status/Objective Patient Orientation: Normal For Age ADL-Treatment Therapy Code Descriptions/Definitions Functional [place] Measure: 0=Not Assessed/NA 4=Minimal Assistance 1=Total Assistance 5=Supervision or Setup 2=Maximal Assistance 6=Modified [place] 3=Moderate Assistance 7=Complete IndependenceSCALE: Activities may be completed with or without assistive devices. 6-Hsrbuyvian-rodlwac completes the activity by him/herself with no assistance from a helper. 5-Set-up or Clean-up Assistance-helper sets up or cleans up; patient completes activity. [place] assists only prior to or following the activity. 4-Supervision or Touching Assistance-helper provides verbal cues and/or touching/steadying and/or contact guard assistance as patient completes activity. Assistance may be provided throughout the activity or intermittently. 3-Partial/Moderate Assistance-helper does LESS THAN HALF the effort. [place] lifts, holds or supports trunk or limbs, but provides less than half the effort. 2-Substantial/Maximal Assistance-helper does MORE THAN HALF the effort. [place] lifts or holds trunk or limbs and provides more than half the effort. 7-Kjksdelci-smhyzu does ALL the effort. Patient does none of the effort to complete the activity. Or, the assistance of 2 or more helpers is required for the patient to complete the activity. If activity was not attempted, code reason: 7-Patient Refused. 9-Not Applicable-not attempted and the patient did not perform the activity before the current illness, exacerbation or injury. 10-Not Attempted due to Environmental Limitations-(lack of equipment, weather restraints, etc.). 88-Not Attempted due to Medical Conditions or Safety Concerns. Eating (QC): 6 Oral Hygiene (QC): 6 (Pt completes at sink) Shower/Bathe Self (QC): 3 (Pt completes sponge bath in stance and sitting at recliner chair. Pt requires SUP in stance, able to complete bottom and back washing, and requires min A with bottom hygiene for thoroughness. Pt states assisted with shower prior to surgery, completing bottom hygiene and back washing. Pt states she would like cream on her bottom. Pt points to cream utilized, completed by therapist.) Upper Body Dressing (QC): 6 (Completes T-shirt donning in chair.) Lower Body Dressing (QC): 5 (Completes LB dressing with SUP. Sock don/ doffing with SUP.) Toileting Hygiene (QC): 6 (delia hygiene wiping with IND) Toilet Transfer (QC): 6 (IND within toilet transfer.) Other Treatment Pt completes sponge bath/ dressing tasks in room. Pt agreeable for walk and functional mobility tasks; pt's nurse notified. pt completes functional mobility to lower level of hospital, able to navigate environment with IND. Pt walks on different terrain with good safety and fair endurance with FWW, including outside, short carpet, uneven walk way, and ramp. Pt c/o "gas pains" in lower abdomen; walks to chap to focus on meditation and deep breathing with relaxing atmosphere. Pt demonstrates difficulty with motor control down to lower bench, states pain as she lowers. Pt sit to stand from lower surface with increased time, no c/o pain. Pt states "contractions" of lower abdominal area. Pt returns to chair, completes diaphragmatic breathing techniques to focus on pain management, pt's nurse notified. Pt given cup with warm water, able to manipulate all items including packets to complete prep work of tea. Pt left in recliner chair, call light in reach, all needs met, nursing present. Education OT Patient Education: Correct positioning, Energy conservation, Modified ADL techniques, Purpose of tx/functional activities, Rehab process, Safety issues, Other (pain management) Teaching Recipient: Patient Teaching Methods: Demonstration, Discussion Response to Teaching: Verbalize Understanding, Return Demonstration OT Short Term Goals Short Term Goals Eating(FIM): 4 (met) Upper Body Dressing(FIM): 2 (met) Lower Body Dressing(FIM): 2 (met) Additional Short Term Goals: 1-Demonstrate ADL Tasks, 2-Verbalize Understanding, 3-ImproveStrength/[place] 1=Demonstrate adherence to instructed precautions during ADL tasks. 2=Patient will verbalize/demonstrate understanding of assistive devices/modifications for ADL. 3=Patient will improve strength/tolerance for activity to enable patient to per form ADL's. OT Group Home Goals Dental Office Receptionist Goals Eating (QC): 6 (met) Oral Hygiene (QC): 6 (met) Shower/Bathe Self (QC): 5 Upper Body Dressing (QC): 6 (met) Lower Body Dressing (QC): 6 On/Off Footwear (QC): 6 Toileting Hygiene (QC): 6 (met) Toilet/Commode Transfer (QC): 6 (met) Additional Goals: 1-Demonstrate ADL Tasks, 2-Verbalize Understanding, 3- ImproveStrength/[place] 1=Demonstrate adherence to instructed precautions during ADL tasks. 2=Patient will verbalize/demonstrate understanding of assistive devices/modifications for ADL. 3=Patient will improve strength/tolerance for activity to enable patient to perform ADL's. OT Education/Plan Problem List/Assessment Assessment: Decreased Activ Tolerance, Impaired I ADL's, Impaired Self-Care Skills Discharge Recommendations Plan/Recommendations: Continue POC Therapy Discharge Recommendati: Intermittent Supervision Equpiment Recommendations-D/C: Other, See Comments (long handled sponge) Treatment Plan/Plan of Care Treatment,Training & Education: Yes Patient would benefit from OT for education, treatment and training to promote independence in ADL's, mobility, safety and/or upper extremity function for ADL's. Plan of Care: ADL Retraining, Caregiver Training, Concurrent Therapy, Functional Mobility, Group Exercise/Act as Ind, UE Funct Exercise/Act Treatment Duration: Jul 14, 2019 Frequency: At least 5 of 7 days/Wk (IRF) Estimated Hrs Per Day: 1.5 hours per day Agreement: Yes Rehab Potential: Fair Time/GCodes Start Time: 08:00 Stop Time: 09:30 Total Time Billed (hr/min): 90 Billed Treatment Time 1, ADLx3 (45), FAx3 (45)= 90 BRENNON HIGGINS OTR Jul 07, 2019 09:32
[2019-07-07] MEDS: ACETAMINOPHEN 500 MG TAB (TYLENOL) PO PRN (09:35)
--- NOTE | 2019-07-07 10:16 | Progress Note ---
ALEXA SOLIS MED STUDENT 07/07/19 1016: Progress Note CC: Septic shock and s/p sudhir patch for GI perforation * Continues to feel improved, off of TPN, feels as if iron infusions are helping her fatigue. * Labs show anemia has improved RBC 3.38, Hgb 9.1, Hct 29. Cr 0.67. * Did not sleep well last night, reports having to wake up to urinate frequently . * Doing well in PT/OT, continues to have difficulties bending due to abdominal pain but notes improvement. * No longer has headache. * Having BMs, no constipation or diarrhea. * On auscultation, lungs CTAB, heart RRR, no murmurs, clicks, or gallops. KARYN TURNER DO 07/07/19 1712: Supervisory-Addendum Brief Verification & Attestation Participated in pt care: history, MDM, physical Personally performed: exam, history, MDM, supervision of care Care discussed with: Medical Student Procedures: n/a Results interpretation: Verified all documentation Verification and Attestation of Medical Student E/M Service A medical student performed and documented this service in my presence. I reviewed and verified all information documented by the medical student and made modifications to such information, when appropriate. I personally performed the physical exam and medical decision making. Karyn Turner, Jul 07, 2019,17:12 ALEXA SOLIS MED STUDENT Jul 07, 2019 10:16 KARYN TURNER DO Jul 07, 2019 17:12
--- NOTE | 2019-07-07 10:59 | Physical Therapy Daily Note ---
PT Daily Note-Current Subjective Pt. agreeable to rx but states her abdominal pain is at 8/10 right now Pain Numeric Pain Scale: 8 Location: Medial Location Body Site: Abdomen Pain Description: Cramping Appearance grimacing with pain Mental Status Patient Orientation: Normal For Age Attachments: Drains Transfers SCALE: Activities may be completed with or without assistive devices. 2-Tlvcklcnxu-wbckdau completes the activity by him/herself with no assistance from a helper. 5-Set-up or Clean-up Assistance-helper sets up or cleans up; patient completes activity. [place] assists only prior to or following the activity. 4-Supervision or Touching Assistance-helper provides verbal cues and/or touching/steadying and/or contact guard assistance as patient completes activity. Assistance may be provided throughout the activity or intermittently. 3-Partial/Moderate Assistance-helper does LESS THAN HALF the effort. [place] lifts, holds or supports trunk or limbs, but provides less than half the effort. 2-Substantial/Maximal Assistance-helper does MORE THAN HALF the effort. [place] lifts or holds trunk or limbs and provides more than half the effort. 3-Fjzbpsblk-yxsfzi does ALL the effort. Patient does none of the effort to complete the activity. Or, the assistance of 2 or more helpers is required for the patient to complete the activity. If activity was not attempted, code reason: 7-Patient Refused. 9-Not Applicable-not attempted and the patient did not perform the activity before the current illness, exacerbation or injury. 10-Not Attempted due to Environmental Limitations-(lack of equipment, weather restraints, etc.). 88-Not Attempted due to Medical Conditions or Safety Concerns. Transfers (B, C, W/C): 6 Roll Left to Right (QC): 6 Sit to Lying (QC): 6 Sit to Stand (QC): 6 Chair/Bza-fi-Gtgqa Xfer(QC): 6 Bed to/from Chair: 6 Weight Bearing Full Weight Bearing Full Weight Bearing Gait Training Does the Patient Walk?: Yes Gait: 6 Walk 10 feet (QC): 6 Walk 50 ft with 2 Turns(QC): 6 Walk 150 ft (QC): 6 Walking 10ft/uneven surface-QC: 6 Gait Persons Needed: 0 Gait Assistive Device: FWW fig 8s, side stepping, retro gait and tight spaces all slow careful with no LOB, up ad al status Exercises Supine Ex: Ankle pumps, Quad Set, Rolling, Glut sets, Heel Slides, Short Arc Quads, Scooting, Hip abd/add Supine Reps: 20 Seated Therapy Exercises: Ankle pumps, Sit to stand, Long arc quads, Hip flexion Seated Reps: 20 Treatments pt. toilets managing clothes indep, some assist for clean up Assessment Current Status: Good Progress increased funct mob but abd pain limits pt at times PT Short Term Goals Short Term Goals Time Frame: Jul 07, 2019 Gait Distance Comment: 50' Gait Assistive Device: FWW (SBA ) PT Alf Goals Alf Goals PT Manifold Operator Goals Time Frame: Jul 21, 2019 Sit to Lying (QC): 4 (SBA) Lying-Sitting on Side/Bed(QC): 4 (SBA) Sit to Stand (QC): 4 (SBA) Roll Left to Right (QC): 4 (SBA) Chair/Uts-de-Knjlu Xfer(QC): 4 (SBA) Car Transfer (QC): 4 (SBA) Distance: 150' Walk 10 feet (QC): 4 (SBA) Walk 10ft-Uneven Surface(QC): 4 (SBA) Walk 50ft with 2 Turns (QC): 4 (SBA) Walk 150 ft (QC): 4 (SBA) Gait Assistive Device: FWW # of Steps: 4 1 Step (curb) (QC): 4 4 Steps (QC): 4 Picking up an Object (QC): 4 PT Plan Treatment/Plan Treatment Plan: Continue Plan of Care Treatment Plan: Bed Mobility, Education, Functional Activity [place], Functional Strength, Group Therapy, Gait, Safety, Therapeutic Exercise, Transfers Treatment Duration: Jul 21, 2019 Frequency: At least 5 of 7 days/Wk (IRF) Estimated Hrs Per Day: 1.5 hours per day Patient and/or Family Agrees t: Yes Safety Risks/Education Patient Education: Gait Training, Transfer Techniques, Correct Positioning, Disease Process, Safety Issues Teaching Recipient: Patient Teaching Methods: Demonstration, Discussion Response to Teaching: Verbalize Understanding, Return Demonstration, Reinforcement Needed Time/GCodes Time In: 1000 Time Out: 1100 Total Billed Treatment Time: 60 Total Billed Treatment 1,GT25m,FA15m,EX20m PALMER JARAMILLO INGREDIENT SCALER Jul 07, 2019 10:59
[2019-07-07] MEDS: CATHETER FLUSH 10 ML SYR IV SCH ×2 (13:37→20:16)
--- NOTE | 2019-07-07 13:58 | Physical Therapy Daily Note ---
PT Daily Note-Current Subjective Pt. feels much better this afternoon than she did this morning. Did not c/o significant abdominal pain etc Pain Location: No Pain Reported Mental Status Patient Orientation: Normal For Age Attachments: [place] Transfers SCALE: Activities may be completed with or without assistive devices. 1-Ialtkpzbcf-vonkmpe completes the activity by him/herself with no assistance from a helper. 5-Set-up or Clean-up Assistance-helper sets up or cleans up; patient completes activity. [place] assists only prior to or following the activity. 4-Supervision or Touching Assistance-helper provides verbal cues and/or touching/steadying and/or contact guard assistance as patient completes activity. Assistance may be provided throughout the activity or intermittently. 3-Partial/Moderate Assistance-helper does LESS THAN HALF the effort. [place] lifts, holds or supports trunk or limbs, but provides less than half the effort. 2-Substantial/Maximal Assistance-helper does MORE THAN HALF the effort. [place] lifts or holds trunk or limbs and provides more than half the effort. 2-Zibkftfia-inhihp does ALL the effort. Patient does none of the effort to complete the activity. Or, the assistance of 2 or more helpers is required for the patient to complete the activity. If activity was not attempted, code reason: 7-Patient Refused. 9-Not Applicable-not attempted and the patient did not perform the activity before the current illness, exacerbation or injury. 10-Not Attempted due to Environmental Limitations-(lack of equipment, weather restraints, etc.). 88-Not Attempted due to Medical Conditions or Safety Concerns. Sit to Lying (QC): 6 Car Transfer (QC): 6 all TRFs car, sup to sit and sit to stand mod I Weight Bearing Full Weight Bearing Full Weight Bearing Gait Training Does the Patient Walk?: Yes Gait: 6 Gait Assistive Device: FWW 150ft x 2 observed safe and no LOB, up ad al Stair Training Stair Training: Handrails/: 1 handrail #of Steps: 8 4 Steps (QC): 5 Stairs: Pattern: Step to Level of Assist: 5 Balance Picking up an Object (QC): 88 Assessment Current Status: Good Progress good progress all phases of Rx PT Short Term Goals Short Term Goals Time Frame: Jul 07, 2019 Gait Distance Comment: 50' Gait Assistive Device: FWW (SBA ) PT Director Workers Compensation Goals Director Workers Compensation Goals PT Longterm Goals Time Frame: Jul 21, 2019 Sit to Lying (QC): 4 (SBA) Lying-Sitting on Side/Bed(QC): 4 (SBA) Sit to Stand (QC): 4 (SBA) Roll Left to Right (QC): 4 (SBA) Chair/Olm-as-Pgiai Xfer(QC): 4 (SBA) Car Transfer (QC): 4 (SBA) Distance: 150' Walk 10 feet (QC): 4 (SBA) Walk 10ft-Uneven Surface(QC): 4 (SBA) Walk 50ft with 2 Turns (QC): 4 (SBA) Walk 150 ft (QC): 4 (SBA) Gait Assistive Device: FWW # of Steps: 4 1 Step (curb) (QC): 4 4 Steps (QC): 4 Picking up an Object (QC): 4 PT Plan Treatment/Plan Treatment Plan: Continue Plan of Care Treatment Plan: Bed Mobility, Education, Functional Activity [place], Functional Strength, Group Therapy, Gait, Safety, Therapeutic Exercise, Transfers Treatment Duration: Jul 21, 2019 Frequency: At least 5 of 7 days/Wk (IRF) Estimated Hrs Per Day: 1.5 hours per day Patient and/or Family Agrees t: Yes Safety Risks/Education Patient Education: Gait Training, Transfer Techniques, Steps, Correct Positioning, Disease Process, Safety Issues Teaching Recipient: Patient Teaching Methods: Demonstration, Discussion Response to Teaching: Verbalize Understanding, Return Demonstration, Reinforcement Needed Time/GCodes Time In: 1330 Time Out: 1400 Total Billed Treatment Time: 30 Total Billed Treatment 1,FA20m,GT10m PALMER JARAMILLO RN GYNECOLOGY Jul 07, 2019 13:58
--- NOTE | 2019-07-07 15:47 | NUR ---
RD FOLLOW-UP PMHx: HTN; chronic UTI; DM; fibromyalgia PT INTERACTION: Pt was awake and pleasant for nutrition follow-up. Pt states current appetite is poor, attributing it to current diet order of DYS2 Mechanically Altered. Pt states no issues with n/v/c/d since last assessment. ABNORMAL NUTRITION-RELATED LAB VALUES: glu 142 (H) Est. kcal needs: 5665-5843 kcal (15-20 kcal/kg) Est. Pro needs: 91-109 g Pro (1.0-1.2 g Pro/kg) PES STATEMENT: Inadequate oral intake (NI-2.1) related to loss of appetite as evidenced by pt interview INTERVENTION: Continue with current diet order of DYS2 Mechanically Altered diet. Switch to CHO 60g/m 3snack diet, when medically able. Add Ensure HP to meals BID. Provides 160 kcal and 16 g Pro per serving. MONITOR/EVALUATE: PO Intake; Plan of Care; Hydration Status; Weight Status; Lab Values Amador Santana, MS, RD, LD Ext. 133
[2019-07-07 18:01] VITALS: BP 138/81
[2019-07-07] MEDS: ENOXAPARIN 40 MG/0.4 ML (LOVENOX) SYR SC SCH (18:21)
[2019-07-07] MEDS: toPIRamate 25 MG (TOPAMAX) TAB PO SCH (20:03)
[2019-07-07] MEDS: rOPINIRole 1 MG (REQUIP) TABLET PO SCH (20:03)
[2019-07-07] MEDS: SERTRALINE 100 MG (ZOLOFT) TAB PO SCH (20:03)
[2019-07-08] MEDS: HYDROcodone/APAP 5 MG/325 MG (LORTAB) TAB PO PRN ×5 (00:26→20:01)
[2019-07-08 05:00] VITALS: BP 143/85
[2019-07-08] MEDS: inSUlin ASPART (NovoLOG) 1 UNIT/0.01 ML (CHARGE PER UNIT) SC SCH ×4 (05:27→20:29)
[2019-07-08] MEDS: CATHETER FLUSH 10 ML SYR IV SCH ×3 (05:27→20:29)
[2019-07-08] MEDS: PANTOPRAZOLE 40 MG (PROTONIX) TAB PO SCH ×2 (08:37→20:29)
--- NOTE | 2019-07-08 09:47 | Physical Therapy Daily Note ---
PT Daily Note-Current Subjective Pt in bed, agreeable. Pt up ad al in room. Pain Numeric Pain Scale: 8 Location: Anterior Location Body Site: Abdomen Mental Status Patient Orientation: Person, Place, Time, Situation Transfers SCALE: Activities may be completed with or without assistive devices. 3-Lxoqfbwqlv-nwemuyo completes the activity by him/herself with no assistance from a helper. 5-Set-up or Clean-up Assistance-helper sets up or cleans up; patient completes activity. [place] assists only prior to or following the activity. 4-Supervision or Touching Assistance-helper provides verbal cues and/or touching/steadying and/or contact guard assistance as patient completes activity. Assistance may be provided throughout the activity or intermittently. 3-Partial/Moderate Assistance-helper does LESS THAN HALF the effort. [place] lifts, holds or supports trunk or limbs, but provides less than half the effort. 2-Substantial/Maximal Assistance-helper does MORE THAN HALF the effort. [place] lifts or holds trunk or limbs and provides more than half the effort. 9-Ewngrkqvs-bzfcwg does ALL the effort. Patient does none of the effort to complete the activity. Or, the assistance of 2 or more helpers is required for the patient to complete the activity. If activity was not attempted, code reason: 7-Patient Refused. 9-Not Applicable-not attempted and the patient did not perform the activity before the current illness, exacerbation or injury. 10-Not Attempted due to Environmental Limitations-(lack of equipment, weather restraints, etc.). 88-Not Attempted due to Medical Conditions or Safety Concerns. Transfers (B, C, W/C): 6 Roll Left to Right (QC): 6 Sit to Lying (QC): 6 Sit to Stand (QC): 6 Chair/Vix-jb-Bklul Xfer(QC): 6 Bed to/from Chair: 6 Mod (I) in BR Weight Bearing Full Weight Bearing Full Weight Bearing Gait Training Does the Patient Walk?: Yes Gait: 6 Distance: 250 Walk 10 feet (QC): 6 Walk 50 ft with 2 Turns(QC): 6 Walk 150 ft (QC): 6 Gait Persons Needed: 0 Gait Assistive Device: None Pt ambulated with slow, steady gait (I). Wheelchair Training Does the Pt Use a Wheelchair?: No Stair Training Stair Training: Handrails/: 1 handrail #of Steps: 4 4 Steps (QC): 6 Stairs: Pattern: Step to Level of Assist: 5 Treatments Ambulation, gait on stairs. Returned to up in chair. Assessment Current Status: Good Progress Pt is safe with functional mobility, up ad al in room. PT Short Term Goals Short Term Goals Time Frame: Jul 07, 2019 Gait Distance Comment: 50' Gait Assistive Device: FWW (SBA ) PT Wood Floor Refinisher Goals Custodial Goals PT Wood Floor Refinisher Goals Time Frame: Jul 21, 2019 Sit to Lying (QC): 4 (SBA) Lying-Sitting on Side/Bed(QC): 4 (SBA) Sit to Stand (QC): 4 (SBA) Roll Left to Right (QC): 4 (SBA) Chair/Wcq-pl-Lucqs Xfer(QC): 4 (SBA) Car Transfer (QC): 4 (SBA) Distance: 150' Walk 10 feet (QC): 4 (SBA) Walk 10ft-Uneven Surface(QC): 4 (SBA) Walk 50ft with 2 Turns (QC): 4 (SBA) Walk 150 ft (QC): 4 (SBA) Gait Assistive Device: FWW # of Steps: 4 1 Step (curb) (QC): 4 4 Steps (QC): 4 Picking up an Object (QC): 4 PT Plan Problem List Problem List: Activity Tolerance, Functional Strength, Gait Treatment/Plan Treatment Plan: Continue Plan of Care Treatment Plan: Bed Mobility, Education, Functional Activity [place], Functional Strength, Group Therapy, Gait, Safety, Therapeutic Exercise, Transfers Treatment Duration: Jul 21, 2019 Frequency: At least 5 of 7 days/Wk (IRF) Estimated Hrs Per Day: 1.5 hours per day Patient and/or Family Agrees t: Yes Time/GCodes Time In: 909 Time Out: 925 Total Billed Treatment Time: 16 Total Billed Treatment 1, FA x 16' FRENCH PHILLIPS DPDara Jul 08, 2019 09:46
--- NOTE | 2019-07-08 12:31 | PM&R Progress Note ---
Subjective HPI/CC On Admission Date Seen by Provider: Jul 08, 2019 Time Seen by Provider: 12:15 CC: Debility requiring inpatient rehab admission HPI: This is a 49yoWF who is s/p septic shock ICU status emergent surgery for gastric perforation maintained on TPN and severe weakness requiring inpatient rehab prior to returning home. Currently she is able to tolerate a few ounces of intake at a time but Dr. Taylor wants her to go very slowly. Pain is better controlled and she is willing to participate in PT in order to ultimately return home. PLOF was independent. Patient does have situational depression currently and we will aggressively treat this to aid in recovery. Subjective/Events-last exam Pt is walking very well without much abdominal pain BM this morning Lortab handling the pain Lortab handling the pain Q4hrs Incision looks good Drains still in place Checked meds and labs Conferred with credit administration specialist therapy notes Review of Systems Gastrointestinal: Abdominal Pain Objective Exam Vital Signs Vital Signs Date Time Temp Pulse Resp B/P (MAP) Pulse Ox O2 Delivery O2 Flow Rate FiO2 07/08/19 09:00 Room Air 07/08/19 05:00 36.4 92 16 143/85 (104) 97 Capillary Refill : General Appearance: No Apparent Distress, WD/WN, Chronically ill HEENT: PERRL/EOMI, Normal ENT Inspection, Pharynx Normal Neck: Full Range of Motion, Normal Inspection, Non Tender, Supple Respiratory: Chest Non Tender, Lungs Clear, Normal Breath Sounds, No Accessory Muscle Use, No Respiratory Distress Cardiovascular: Regular Rate, Rhythm, No Edema, No Gallop, No JVD, No Murmur, Normal Peripheral Pulses Gastrointestinal: Normal Bowel Sounds, No Organomegaly, No Pulsatile Mass, Soft, Tenderness Back: Normal Inspection, No CVA Tenderness, No Vertebral Tenderness Extremity: Normal Capillary Refill, Normal Inspection, Normal Range of Motion, Non Tender, No Calf Tenderness Neurologic/Psychiatric: Alert, Oriented x3, No Motor/Sensory Deficits, production corrugator II- XII Norm as Tested, Depressed Affect Skin: Normal Color, Warm/Dry Lymphatic: No Adenopathy Results/Procedures Lab Patient resulted labs reviewed. FIM Transfers Therapy Code Descriptions/Definitions Functional [place] Measure: 0=Not Assessed/NA 4=Minimal Assistance 1=Total Assistance 5=Supervision or Setup 2=Maximal Assistance 6=Modified [place] 3=Moderate Assistance 7=Complete IndependenceSCALE: Activities may be completed with or without assistive devices. 9-Erkamycbag-eyzjemn completes the activity by him/herself with no assistance from a helper. 5-Set-up or Clean-up Assistance-helper sets up or cleans up; patient completes activity. [place] assists only prior to or following the activity. 4-Supervision or Touching Assistance-helper provides verbal cues and/or touching/steadying and/or contact guard assistance as patient completes activity. Assistance may be provided throughout the activity or intermittently. 3-Partial/Moderate Assistance-helper does LESS THAN HALF the effort. [place] lifts, holds or supports trunk or limbs, but provides less than half the effort. 2-Substantial/Maximal Assistance-helper does MORE THAN HALF the effort. [place] lifts or holds trunk or limbs and provides more than half the effort. 2-Mekubnqyu-kqynfy does ALL the effort. Patient does none of the effort to complete the activity. Or, the assistance of 2 or more helpers is required for the patient to complete the activity. If activity was not attempted, code reason: 7-Patient Refused. 9-Not Applicable-not attempted and the patient did not perform the activity before the current illness, exacerbation or injury. 10-Not Attempted due to Environmental Limitations-(lack of equipment, weather restraints, etc.). 88-Not Attempted due to Medical Conditions or Safety Concerns. Transfers (B, C, W/C) (FIM): 6 Roll Left to Right (QC): 6 Sit to Lying (QC): 6 Sit to Stand (QC): 6 Chair/Jxd-mv-Lmntl Xfer(QC): 6 Bed to/from Chair: 6 Car Transfer (QC): 6 Gait Training Does the Patient Walk?: Yes Gait (FIM): 6 Distance: 250 Walk 10 feet (QC): 6 Walk 50 ft with 2 Turns(QC): 6 Walk 150 ft (QC): 6 Walking 10ft/uneven surface-QC: 6 Gait Persons Needed: 0 Gait Assistive Device: None Wheelchair Training Does the Pt Use a Wheelchair?: No Stair Training Stair Training: Handrails/: 1 handrail #of Steps: 4 1 Step (curb) (QC): 5 4 Steps (QC): 6 Stairs: Pattern: Step to Level of Assist: 5 Balance Picking up an Object (QC): 88 ADL-Treatment Eating (QC): 6 Oral Hygiene (QC): 6 (Pt completes at sink) Shower/Bathe Self (QC): 3 (Pt completes sponge bath in stance and sitting at recliner chair. Pt requires SUP in stance, able to complete bottom and back washing, and requires min A with bottom hygiene for thoroughness. Pt states assisted with shower prior to surgery, completing bottom hygiene and back washing. Pt states she would like cream on her bottom. Pt points to cream utilized, completed by therapist.) Upper Body Dressing (QC): 6 (Completes T-shirt donning in chair.) Lower Body Dressing (QC): 5 (Completes LB dressing with SUP. Sock don/ doffing with SUP.) Toileting Hygiene (QC): 6 (delia hygiene wiping with IND) Toilet Transfer (QC): 6 (IND within toilet transfer.) Assessment/Plan Assessment and Plan Assess & Plan/Chief Complaint Assessment: Severe debility s/p septic shock s/p gastric perforation s/p gastric bypass remotely Anemia Hyperglycemia Depression s/p pPost op ileus resolved s/p TPN Plan: Monitor closely TPN DC and eating more each day PO intake to increase Continue Venofer until completed Pain control Impressive recovery (1) Septic shock Status: Resolved Resolution Date/Time: 06/30/19 @ 14:48 (2) Gastrointestinal perforation Status: Resolved (3) Nausea and vomiting Status: Acute (4) Ileus following gastrointestinal surgery (5) On total parenteral nutrition (6) Anemia (7) Hyperglycemia (8) Depressed DIONICIO TURNER DO Jul 08, 2019 12:31
[2019-07-08] MEDS: ENOXAPARIN 40 MG/0.4 ML (LOVENOX) SYR SC SCH (17:41)
--- NOTE | 2019-07-08 17:50 | NUR ---
Pt in chair and eating well at this time. She states she really pulled a muscle today when exercising. Pt states right side of midline incisional site is sore. Pt has ice pack to area. No drainage/No increased bruising noted.
[2019-07-08 18:00] VITALS: BP 140/82
[2019-07-08] MEDS: toPIRamate 25 MG (TOPAMAX) TAB PO SCH (20:29)
[2019-07-08] MEDS: SERTRALINE 100 MG (ZOLOFT) TAB PO SCH (20:29)
[2019-07-08] MEDS: rOPINIRole 1 MG (REQUIP) TABLET PO SCH (20:29)
[2019-07-08] MEDS: ONDANSETRON 4 MG/2 ML (SDV) Z0FRAN IVP PRN (21:05)
[2019-07-09] MEDS: HYDROcodone/APAP 5 MG/325 MG (LORTAB) TAB PO PRN ×5 (00:01→20:25)
[2019-07-09] MEDS: inSUlin ASPART (NovoLOG) 1 UNIT/0.01 ML (CHARGE PER UNIT) SC SCH ×4 (05:05→21:30)
[2019-07-09] MEDS: CATHETER FLUSH 10 ML SYR IV SCH ×3 (05:05→20:24)
[2019-07-09 05:08] VITALS: BP 149/73
[2019-07-09] MEDS: PANTOPRAZOLE 40 MG (PROTONIX) TAB PO SCH ×2 (09:00→20:24)
[2019-07-09] MEDS: IRON SUCROSE 200 MG/10 ML (VENOFER) VIAL IV SCH (09:00)
--- NOTE | 2019-07-09 10:39 | NUR ---
Pt up to bathroom independently and tolerated well. Pain meds were given for pain of 8/10 in central abdomen previous to nap. OFE drains emptied. A-1 has 20cc serous fluid/B-2 has 60 ccserous fluid. incisional erica dry/open to air/no drainage at midline or lateral site. Pt is resting quietly at this time.
--- NOTE | 2019-07-09 13:19 | NUR ---
Pt up from bed to bathroom independently. Pt then moved from bathroom to chair independently/ pt sitting up to watch television. Pt voiding well/no bm on this shift. Pt tolerated well
--- NOTE | 2019-07-09 13:22 | PM&R Progress Note ---
Subjective HPI/CC On Admission Date Seen by Provider: Jul 09, 2019 Time Seen by Provider: 12:45 CC: Debility requiring inpatient rehab admission HPI: This is a 49yoWF who is s/p septic shock ICU status emergent surgery for gastric perforation maintained on TPN and severe weakness requiring inpatient rehab prior to returning home. Currently she is able to tolerate a few ounces of intake at a time but Dr. Taylor wants her to go very slowly. Pain is better controlled and she is willing to participate in PT in order to ultimately return home. PLOF was independent. Patient does have situational depression currently and we will aggressively treat this to aid in recovery. Subjective/Events-last exam Pt is walking very well without much abdominal pain BM regularly Lortab handling the pain Q5hrs Incision looks good Drains still in place and draining still quite a bit from 1 of the 2 drains Checked meds and labs Conferred with business administration professor therapy notes Review of Systems General: Fatigue Objective Exam Vital Signs Vital Signs Date Time Temp Pulse Resp B/P (MAP) Pulse Ox O2 Delivery O2 Flow Rate FiO2 07/09/19 09:00 97 Room Air 07/09/19 05:08 36.8 92 16 149/73 (98) Capillary Refill : General Appearance: No Apparent Distress, WD/WN, Chronically ill HEENT: PERRL/EOMI, Normal ENT Inspection, Pharynx Normal Neck: Full Range of Motion, Normal Inspection, Non Tender, Supple Respiratory: Chest Non Tender, Lungs Clear, Normal Breath Sounds, No Accessory Muscle Use, No Respiratory Distress Cardiovascular: Regular Rate, Rhythm, No Edema, No Gallop, No JVD, No Murmur, Normal Peripheral Pulses Gastrointestinal: Normal Bowel Sounds, No Organomegaly, No Pulsatile Mass, Soft, Tenderness Back: Normal Inspection, No CVA Tenderness, No Vertebral Tenderness Extremity: Normal Capillary Refill, Normal Inspection, Normal Range of Motion, Non Tender, No Calf Tenderness Neurologic/Psychiatric: Alert, Oriented x3, No Motor/Sensory Deficits, cutter and presser II- XII Norm as Tested, Depressed Affect Skin: Normal Color, Warm/Dry Lymphatic: No Adenopathy Results/Procedures Lab Patient resulted labs reviewed. FIM Transfers Therapy Code Descriptions/Definitions Functional [place] Measure: 0=Not Assessed/NA 4=Minimal Assistance 1=Total Assistance 5=Supervision or Setup 2=Maximal Assistance 6=Modified [place] 3=Moderate Assistance 7=Complete IndependenceSCALE: Activities may be completed with or without assistive devices. 7-Ddfkblgkvo-bzzmpso completes the activity by him/herself with no assistance from a helper. 5-Set-up or Clean-up Assistance-helper sets up or cleans up; patient completes activity. [place] assists only prior to or following the activity. 4-Supervision or Touching Assistance-helper provides verbal cues and/or touching/steadying and/or contact guard assistance as patient completes activity. Assistance may be provided throughout the activity or intermittently. 3-Partial/Moderate Assistance-helper does LESS THAN HALF the effort. [place] lift s, holds or supports trunk or limbs, but provides less than half the effort. 2-Substantial/Maximal Assistance-helper does MORE THAN HALF the effort. [place] lifts or holds trunk or limbs and provides more than half the effort. 8-Uhjdvnvux-ypayzh does ALL the effort. Patient does none of the effort to complete the activity. Or, the assistance of 2 or more helpers is required for the patient to complete the activity. If activity was not attempted, code reason: 7-Patient Refused. 9-Not Applicable-not attempted and the patient did not perform the activity before the current illness, exacerbation or injury. 10-Not Attempted due to Environmental Limitations-(lack of equipment, weather restraints, etc.). 88-Not Attempted due to Medical Conditions or Safety Concerns. Transfers (B, C, W/C) (FIM): 6 Roll Left to Right (QC): 6 Sit to Lying (QC): 6 Sit to Stand (QC): 6 Chair/Bat-ju-Odasf Xfer(QC): 6 Bed to/from Chair: 6 Car Transfer (QC): 6 Gait Training Does the Patient Walk?: Yes Gait (FIM): 6 Distance: 250 Walk 10 feet (QC): 6 Walk 50 ft with 2 Turns(QC): 6 Walk 150 ft (QC): 6 Walking 10ft/uneven surface-QC: 6 Gait Persons Needed: 0 Gait Assistive Device: None Wheelchair Training Does the Pt Use a Wheelchair?: No Stair Training Stair Training: Handrails/: 1 handrail #of Steps: 4 1 Step (curb) (QC): 5 4 Steps (QC): 6 Stairs: Pattern: Step to Level of Assist: 5 Balance Picking up an Object (QC): 88 ADL-Treatment Eating (QC): 6 Oral Hygiene (QC): 6 (Pt completes at sink) Shower/Bathe Self (QC): 3 (Pt completes sponge bath in stance and sitting at recliner chair. Pt requires SUP in stance, able to complete bottom and back washing, and requires min A with bottom hygiene for thoroughness. Pt states assisted with shower prior to surgery, completing bottom hygiene and back washing. Pt states she would like cream on her bottom. Pt points to cream utilized, completed by therapist.) Upper Body Dressing (QC): 6 (Completes T-shirt donning in chair.) Lower Body Dressing (QC): 5 (Completes LB dressing with SUP. Sock don/ doffing with SUP.) Toileting Hygiene (QC): 6 (delia hygiene wiping with IND) Toilet Transfer (QC): 6 (IND within toilet transfer.) Assessment/Plan Assessment and Plan Assess & Plan/Chief Complaint Assessment: Severe debility s/p septic shock s/p gastric perforation s/p gastric bypass remotely Anemia Hyperglycemia Depression s/p pPost op ileus resolved s/p TPN Plan: Monitor closely TPN DC and eating more each day PO intake to increase Continue Venofer until completed Pain control Impressive recovery Drain DC per Dr Taylor (1) Septic shock Status: Resolved Resolution Date/Time: 06/30/19 @ 14:48 (2) Gastrointestinal perforation Status: Resolved (3) Nausea and vomiting Status: Acute (4) Ileus following gastrointestinal surgery (5) On total parenteral nutrition (6) Anemia (7) Hyperglycemia (8) Depressed DIONICIO TURNER DO Jul 09, 2019 13:22
[2019-07-09] MEDS: ENOXAPARIN 40 MG/0.4 ML (LOVENOX) SYR SC SCH (17:12)
[2019-07-09 17:55] VITALS: BP 146/80
[2019-07-09] MEDS: rOPINIRole 1 MG (REQUIP) TABLET PO SCH (20:24)
[2019-07-09] MEDS: toPIRamate 25 MG (TOPAMAX) TAB PO SCH (20:24)
[2019-07-09] MEDS: SERTRALINE 100 MG (ZOLOFT) TAB PO SCH (20:24)
[2019-07-10] MEDS: HYDROcodone/APAP 5 MG/325 MG (LORTAB) TAB PO PRN ×6 (00:31→21:48)
[2019-07-10] MEDS: CATHETER FLUSH 10 ML SYR IV SCH ×3 (04:29→21:59)
[2019-07-10 05:02] VITALS: BP 150/86
[2019-07-10] MEDS: inSUlin ASPART (NovoLOG) 1 UNIT/0.01 ML (CHARGE PER UNIT) SC SCH ×4 (05:20→21:15)
[2019-07-10 07:02] LABS: BASOPHILS % (AUTO) 1 % (0-10); EOSINOPHILS # (AUTO) 0.1 10^3/uL (0.0-0.3); EOSINOPHILS % (AUTO) 5 % (0-10); HEMATOCRIT 29 % (35-52); HEMOGLOBIN 9.3 G/DL (11.5-16.0); LYMPHOCYTES # (AUTO) 1.1 X 10^3 (1.0-4.0); LYMPHOCYTES % (AUTO) 39 % (12-44); MEAN CORPUSCULAR HEMOGLOBIN 27 PG (25-34); MEAN CORPUSCULAR HGB CONC 32 G/DL (32-36); MEAN CORPUSCULAR VOLUME 86 FL (80-99); MEAN PLATELET VOLUME 8.7 FL (7.4-10.4); MONOCYTES # (AUTO) 0.3 X 10^3 (0.0-1.0); MONOCYTES % (AUTO) 9 % (0-12); NEUTROPHILS # (AUTO) 1.3 X 10^3 (1.8-7.8); NEUTROPHILS % (AUTO) 47 % (42-75); PLATELET COUNT 456 10^3/uL (130-400); RED CELL DISTRIBUTION WIDTH 16.1 % (10.0-14.5); WHITE BLOOD COUNT 2.9 10^3/uL (4.3-11.0)
[2019-07-10 07:25] LABS: ALANINE AMINOTRANSFERASE 26 U/L (0-55); ALBUMIN 2.5 GM/DL (3.2-4.5); ALKALINE PHOSPHATASE 164 U/L (40-136); BILIRUBIN,TOTAL 0.2 MG/DL (0.1-1.0); BUN/CREATININE RATIO 7; CALCIUM 7.9 MG/DL (8.5-10.1); CARBON DIOXIDE 22 MMOL/L (21-32); CHLORIDE 110 MMOL/L (98-107); CREATININE SERUM 0.72 MG/DL (0.60-1.30); GFR ESTIMATED > 60; GLUCOSE 152 MG/DL (70-105); POTASSIUM 3.9 MMOL/L (3.6-5.0); SODIUM 139 MMOL/L (135-145); TOTAL PROTEIN 5.4 GM/DL (6.4-8.2)
[2019-07-10] MEDS: PANTOPRAZOLE 40 MG (PROTONIX) TAB PO SCH ×2 (09:40→21:14)
--- NOTE | 2019-07-10 09:55 | Physical Therapy Daily Note ---
PT Daily Note-Current Subjective Patient agrees to PT treatment at this time. Patient reports that she pulled a muscle in her back this weekend while bathing herself and that has been causing some additional pain. She states she is currently in pain and would like her next pain pill when able. Pain Numeric Pain Scale: 8 Location: Lower Location Body Site: Abdomen Pain Description: Ache Mental Status Patient Orientation: Person, Place, Time, Situation Attachments: Drains Transfers SCALE: Activities may be completed with or without assistive devices. 2-Hlxjhunzvn-uyvvshl completes the activity by him/herself with no assistance from a helper. 5-Set-up or Clean-up Assistance-helper sets up or cleans up; patient completes activity. [place] assists only prior to or following the activity. 4-Supervision or Touching Assistance-helper provides verbal cues and/or touching/steadying and/or contact guard assistance as patient completes activity. Assistance may be provided throughout the activity or intermittently. 3-Partial/Moderate Assistance-helper does LESS THAN HALF the effort. [place] lifts, holds or supports trunk or limbs, but provides less than half the effort. 2-Substantial/Maximal Assistance-helper does MORE THAN HALF the effort. [place] lifts or holds trunk or limbs and provides more than half the effort. 6-Pxtilitkh-tbdxny does ALL the effort. Patient does none of the effort to complete the activity. Or, the assistance of 2 or more helpers is required for the patient to complete the activity. If activity was not attempted, code reason: 7-Patient Refused. 9-Not Applicable-not attempted and the patient did not perform the activity b efore the current illness, exacerbation or injury. 10-Not Attempted due to Environmental Limitations-(lack of equipment, weather restraints, etc.). 88-Not Attempted due to Medical Conditions or Safety Concerns. Sit to Stand (QC): 6 Weight Bearing Full Weight Bearing Full Weight Bearing Gait Training Does the Patient Walk?: Yes Distance: >1000' Walk 10 feet (QC): 6 Walk 50 ft with 2 Turns(QC): 6 Walk 150 ft (QC): 6 Walking 10ft/uneven surface-QC: 6 Gait Assistive Device: None normal pattern Stair Training Stair Training: Handrails/: 1 handrail #of Steps: 12 1 Step (curb) (QC): 6 4 Steps (QC): 6 12 Steps (QC): 6 Stairs: Pattern: Step to Exercises NuStep Minutes: 10 NuStep Workload: 4 Assessment Patient tolerated functional activities well. Patient was able to walk on firm and carpeted surface, between objects, and on ramp without difficulty. Patient reports significant pain and desire for pain pill and RN was notified. Patient does require recovery periods due to fatigue. Education on increasing functional activity noted. Patient is up independently in room and hallway. PT Short Term Goals Short Term Goals Time Frame: Jul 07, 2019 Gait Distance Comment: 50' Gait Assistive Device: FWW (SBA ) PT Senior Care Goals Extruding Press Operator Goals PT Senior Care Goals Time Frame: Jul 21, 2019 Sit to Lying (QC): 4 (SBA) Lying-Sitting on Side/Bed(QC): 4 (SBA) Sit to Stand (QC): 4 (SBA) Roll Left to Right (QC): 4 (SBA) Chair/Lxe-dm-Njhvn Xfer(QC): 4 (SBA) Car Transfer (QC): 4 (SBA) Distance: 150' Walk 10 feet (QC): 4 (SBA) Walk 10ft-Uneven Surface(QC): 4 (SBA) Walk 50ft with 2 Turns (QC): 4 (SBA) Walk 150 ft (QC): 4 (SBA) Gait Assistive Device: FWW # of Steps: 4 1 Step (curb) (QC): 4 4 Steps (QC): 4 Picking up an Object (QC): 4 PT Plan Treatment/Plan Treatment Plan: Continue Plan of Care Treatment Plan: Bed Mobility, Education, Functional Activity Carmina, Functional Strength, Group Therapy, Gait, Safety, Therapeutic Exercise, Transfers Treatment Duration: Jul 21, 2019 Frequency: At least 5 of 7 days/Wk (IRF) Estimated Hrs Per Day: 1.5 hours per day Patient and/or Family Agrees t: Yes Time/GCodes Time In: 855 Time Out: 955 Total Billed Treatment Time: 60 Total Billed Treatment 1 visit FA x3 50 min EX 10 min RYAN ESCALANTE PT Jul 10, 2019 09:54
--- NOTE | 2019-07-10 10:19 | PM&R Progress Note ---
Subjective HPI/CC On Admission Date Seen by Provider: Jul 10, 2019 Time Seen by Provider: 08:30 CC: Debility requiring inpatient rehab admission HPI: This is a 49yoWF who is s/p septic shock ICU status emergent surgery for ga stric perforation maintained on TPN and severe weakness requiring inpatient rehab prior to returning home. Currently she is able to tolerate a few ounces of intake at a time but Dr. Taylor wants her to go very slowly. Pain is better controlled and she is willing to participate in PT in order to ultimately return home. PLOF was independent. Patient does have situational depression currently and we will aggressively treat this to aid in recovery. Subjective/Events-last exam Hgb 9.3 Pt feels much better Denies any significant pain One out of the two drains not draining anything so likely will be pulled Overall progressing nicely Checked meds and labs Conferred with staffing consultant therapy notes Review of Systems General: Fatigue Gastrointestinal: Abdominal Pain Objective Exam Vital Signs Vital Signs Date Time Temp Pulse Resp B/P (MAP) Pulse Ox O2 Delivery O2 Flow Rate FiO2 07/10/19 19:01 98 Room Air 07/10/19 18:00 36.8 106 18 137/79 (98) Capillary Refill : General Appearance: No Apparent Distress, WD/WN, Chronically ill HEENT: PERRL/EOMI, Normal ENT Inspection, Pharynx Normal Neck: Full Range of Motion, Normal Inspection, Non Tender, Supple Respiratory: Chest Non Tender, Lungs Clear, Normal Breath Sounds, No Accessory Muscle Use, No Respiratory Distress Cardiovascular: Regular Rate, Rhythm, No Edema, No Gallop, No JVD, No Murmur, Normal Peripheral Pulses Gastrointestinal: Normal Bowel Sounds, No Organomegaly, No Pulsatile Mass, Soft, Tenderness Back: Normal Inspection, No CVA Tenderness, No Vertebral Tenderness Extremity: Normal Capillary Refill, Normal Inspection, Normal Range of Motion, Non Tender, No Calf Tenderness Neurologic/Psychiatric: Alert, Oriented x3, No Motor/Sensory Deficits, cabinet installer II- XII Norm as Tested, Depressed Affect Skin: Normal Color, Warm/Dry Lymphatic: No Adenopathy Results/Procedures Lab Laboratory Tests 07/10/19 06:45 Patient resulted labs reviewed. FIM Transfers Therapy Code Descriptions/Definitions Functional [place] Measure: 0=Not Assessed/NA 4=Minimal Assistance 1=Total Assistance 5=Supervision or Setup 2=Maximal Assistance 6=Modified [place] 3=Moderate Assistance 7=Complete IndependenceSCALE: Activities may be completed with or without assistive devices. 2-Dlmalzrgdc-hhqddgm completes the activity by him/herself with no assistance from a helper. 5-Set-up or Clean-up Assistance-helper sets up or cleans up; patient completes activity. [place] assists only prior to or following the activity. 4-Supervision or Touching Assistance-helper provides verbal cues and/or touching/steadying and/or contact guard assistance as patient completes activity. Assistance may be provided throughout the activity or intermittently. 3-Partial/Moderate Assistance-helper does LESS THAN HALF the effort. [place] lifts, holds or supports trunk or limbs, but provides less than half the effort. 2-Substantial/Maximal Assistance-helper does MORE THAN HALF the effort. [place] l ifts or holds trunk or limbs and provides more than half the effort. 0-Yepcrrpco-aurfsq does ALL the effort. Patient does none of the effort to complete the activity. Or, the assistance of 2 or more helpers is required for the patient to complete the activity. If activity was not attempted, code reason: 7-Patient Refused. 9-Not Applicable-not attempted and the patient did not perform the activity before the current illness, exacerbation or injury. 10-Not Attempted due to Environmental Limitations-(lack of equipment, weather restraints, etc.). 88-Not Attempted due to Medical Conditions or Safety Concerns. Transfers (B, C, W/C) (FIM): 6 Roll Left to Right (QC): 6 Sit to Lying (QC): 6 Sit to Stand (QC): 6 Chair/Iyp-xl-Zdtvm Xfer(QC): 6 Bed to/from Chair: 6 Car Transfer (QC): 6 Gait Training Does the Patient Walk?: Yes Gait (FIM): 6 Distance: >1000' Walk 10 feet (QC): 6 Walk 50 ft with 2 Turns(QC): 6 Walk 150 ft (QC): 6 Walking 10ft/uneven surface-QC: 6 Gait Persons Needed: 0 Gait Assistive Device: None Wheelchair Training Does the Pt Use a Wheelchair?: No Stair Training Stair Training: Handrails/: 1 handrail #of Steps: 12 1 Step (curb) (QC): 6 4 Steps (QC): 6 12 Steps (QC): 6 Stairs: Pattern: Step to Level of Assist: 5 Balance Picking up an Object (QC): 88 ADL-Treatment Eating (QC): 6 Oral Hygiene (QC): 6 (Pt completes at sink) Shower/Bathe Self (QC): 3 (Pt completes sponge bath in stance and sitting at recliner chair. Pt requires SUP in stance, able to complete bottom and back washing, and requires min A with bottom hygiene for thoroughness. Pt states assisted with shower prior to surgery, completing bottom hygiene and back washing. Pt states she would like cream on her bottom. Pt points to cream utilized, completed by therapist.) Upper Body Dressing (QC): 6 (Completes T-shirt donning in chair.) Lower Body Dressing (QC): 5 (Completes LB dressing with SUP. Sock don/ doffing with SUP.) Toileting Hygiene (QC): 6 (delia hygiene wiping with IND) Toilet Transfer (QC): 6 (IND within toilet transfer.) Assessment/Plan Assessment and Plan Assess & Plan/Chief Complaint Assessment: Severe debility s/p septic shock s/p gastric perforation s/p gastric bypass remotely Anemia Hyperglycemia Depression s/p pPost op ileus resolved s/p TPN Plan: Monitor closely TPN DC and eating more each day PO intake to increase Continue Venofer until completed Pain control Impressive recovery Drain DC per Dr Taylor (1) Septic shock Status: Resolved Resolution Date/Time: 06/30/19 @ 14:48 (2) Gastrointestinal perforation Status: Resolved (3) Nausea and vomiting Status: Acute (4) Ileus following gastrointestinal surgery (5) On total parenteral nutrition (6) Anemia (7) Hyperglycemia (8) Depressed DIONICIO TURNER DO Jul 10, 2019 10:19
--- NOTE | 2019-07-10 10:50 | NUR ---
Pastoral care visit.
--- NOTE | 2019-07-10 12:11 | Occupational Ther Daily Note ---
OT Current Status-Daily Note Subjective Pt seen in room, up in recliner, agreeable to OT. Pt reported that she has already bathed and changed clothing. She is up ad al in her room. Appearance Alert, cooperative ADL-Treatment Therapy Code Descriptions/Definitions Functional [place] Measure: 0=Not Assessed/NA 4=Minimal Assistance 1=Total Assistance 5=Supervision or Setup 2=Maximal Assistance 6=Modified [place] 3=Moderate Assistance 7=Complete IndependenceSCALE: Activities may be completed with or without assistive devices. 3-Jhfnloqrlq-dsrlrwd completes the activity by him/herself with no assistance from a helper. 5-Set-up or Clean-up Assistance-helper sets up or cleans up; patient completes activity. [place] assists only prior to or following the activity. 4-Supervision or Touching Assistance-helper provides verbal cues and/or tenisha juan/steadying and/or contact guard assistance as patient completes activity. Assistance may be provided throughout the activity or intermittently. 3-Partial/Moderate Assistance-helper does LESS THAN HALF the effort. [place] lifts, holds or supports trunk or limbs, but provides less than half the effort. 2-Substantial/Maximal Assistance-helper does MORE THAN HALF the effort. [place] lifts or holds trunk or limbs and provides more than half the effort. 9-Faccnahgi-fxpwtm does ALL the effort. Patient does none of the effort to complete the activity. Or, the assistance of 2 or more helpers is required for the patient to complete the activity. If activity was not attempted, code reason: 7-Patient Refused. 9-Not Applicable-not attempted and the patient did not perform the activity before the current illness, exacerbation or injury. 10-Not Attempted due to Environmental Limitations-(lack of equipment, weather restraints, etc.). 88-Not Attempted due to Medical Conditions or Safety Concerns. Other Treatment [facility], able to tolerate 20 minutes up and moving before she needed a sit down recovery break. Pt education on energy conservation techniques and principles while recovering. Pt returned to her room, then therapy gym. Completed 12 minutes bilat UE exercise on arm bike set at 15W resistance, taking a recovery break at 6 minutes. She also did nuts and bolts activity with 1# weight on each arm but weights removed at midpoint due to back discomfort. Also required recovery break. Able to complete activity with back pain relieving. All activities to increase strength and activity tolerance as needed to be able to complete ADLs in timely manner and safely. Pt provided with written information on energy conservation and was able to identify ways that she could help manage her energy as she is recovering, especially home with family. Pt returned to her room and was left up in recliner, all needs met. Education OT Patient Education: Energy conservation, Progress toward Goal/Update tx plan, Purpose of tx/functional activities Teaching Recipient: Patient Teaching Methods: Demonstration, Discussion Response to Teaching: Verbalize Understanding, Return Demonstration OT Short Term Goals Short Term Goals Eating(FIM): 4 (met) Upper Body Dressing(FIM): 2 (met) Lower Body Dressing(FIM): 2 (met) Additional Short Term Goals: 1-Demonstrate ADL Tasks, 2-Verbalize Understanding, 3-ImproveStrength/[place] 1=Demonstrate adherence to instructed precautions during ADL tasks. 2=Patient will verbalize/demonstrate understanding of assistive devices/modifications for ADL. 3=Patient will improve strength/tolerance for activity to enable patient to pe rform ADL's. OT Snf Goals Repairer Auto Clocks Goals Eating (QC): 6 (met) Oral Hygiene (QC): 6 (met) Shower/Bathe Self (QC): 5 Upper Body Dressing (QC): 6 (met) Lower Body Dressing (QC): 6 On/Off Footwear (QC): 6 Toileting Hygiene (QC): 6 (met) Toilet/Commode Transfer (QC): 6 (met) Additional Goals: 1-Demonstrate ADL Tasks, 2-Verbalize Understanding, 3- ImproveStrength/[place] 1=Demonstrate adherence to instructed precautions during ADL tasks. 2=Patient will verbalize/demonstrate understanding of assistive devices/modifications for ADL. 3=Patient will improve strength/tolerance for activity to enable patient to perform ADL's. OT Education/Plan Discharge Recommendations Plan/Recommendations: Continue POC Treatment Plan/Plan of Care Patient would benefit from OT for education, treatment and training to promote independence in ADL's, mobility, safety and/or upper extremity function for ADL's. Plan of Care: ADL Retraining, Caregiver Training, Concurrent Therapy, Fun ctional Mobility, Group Exercise/Act as Ind, UE Funct Exercise/Act Treatment Duration: Jul 14, 2019 Frequency: At least 5 of 7 days/Wk (IRF) Estimated Hrs Per Day: 1.5 hours per day Agreement: Yes Rehab Potential: Fair Time/GCodes Start Time: 10:30 Stop Time: 12:00 Total Time Billed (hr/min): 90 Billed Treatment Time visit, 30 minutes functional activity, 60 minutes exercise CHRISTOPHER MARTIN OT Jul 10, 2019 12:11
--- NOTE | 2019-07-10 13:45 | Physical Therapy Daily Note ---
PT Daily Note-Current Subjective Patient agrees to PT at this time. Patient reports she is in extreme pain currently and is feeling very tired after her morning. Pain Numeric Pain Scale: 9 Location: Lower Location Body Site: Abdomen Pain Description: Ache Mental Status Patient Orientation: Person, Place, Time, Situation Attachments: Drains Transfers SCALE: Activities may be completed with or without assistive devices. 0-Hpjbitbeys-pdagofm completes the activity by him/herself with no assistance from a helper. 5-Set-up or Clean-up Assistance-helper sets up or cleans up; patient completes activity. [place] assists only prior to or following the activity. 4-Supervision or Touching Assistance-helper provides verbal cues and/or touching/steadying and/or contact guard assistance as patient completes activity. Assistance may be provided throughout the activity or intermittently. 3-Partial/Moderate Assistance-helper does LESS THAN HALF the effort. [place] lifts, holds or supports trunk or limbs, but provides less than half the effort. 2-Substantial/Maximal Assistance-helper does MORE THAN HALF the effort. [place] lifts or holds trunk or limbs and provides more than half the effort. 5-Istebnmxt-pwvqqd does ALL the effort. Patient does none of the effort to complete the activity. Or, the assistance of 2 or more helpers is required for the patient to complete the activity. If activity was not attempted, code reason: 7-Patient Refused. 9-Not Applicable-not attempted and the patient did not perform the activity before the current illness, exacerbation or injury. 10-Not Attempted due to Environmental Limitations-(lack of equipment, weather restraints, etc.). 88-Not Attempted due to Medical Conditions or Safety Concerns. Sit to Stand (QC): 6 Car Transfer (QC): 6 Weight Bearing Full Weight Bearing Full Weight Bearing Gait Training Does the Patient Walk?: Yes Distance: 200' Walk 10 feet (QC): 6 Walk 50 ft with 2 Turns(QC): 6 Walk 150 ft (QC): 6 Gait Assistive Device: None Normal pattern and pace. Stair Training Stair Training: Handrails/: 1 handrail #of Steps: 12 1 Step (curb) (QC): 6 4 Steps (QC): 6 12 Steps (QC): 6 Stairs: Pattern: Step to Exercises Seated Therapy Exercises: Ankle pumps, Sit to stand, Long arc quads, Hip flexion, Hip abd/add Assessment Patient able to tolerate walking and functional activities with frequent breaks due to pain and fatigue. Patient able to demonstrate car transfer and stairs without assistance or cues. Patient complaint of increasing pain with activity and request for pain pill reported to RN. PT Short Term Goals Short Term Goals Time Frame: Jul 07, 2019 Gait Distance Comment: 50' Gait Assistive Device: FWW (SBA ) PT Patent Engineer Goals Patent Engineer Goals PT Patent Engineer Goals Time Frame: Jul 21, 2019 Sit to Lying (QC): 4 (SBA) Lying-Sitting on Side/Bed(QC): 4 (SBA) Sit to Stand (QC): 4 (SBA) Roll Left to Right (QC): 4 (SBA) Chair/Vgd-ml-Jeovk Xfer(QC): 4 (SBA) Car Transfer (QC): 4 (SBA) Distance: 150' Walk 10 feet (QC): 4 (SBA) Walk 10ft-Uneven Surface(QC): 4 (SBA) Walk 50ft with 2 Turns (QC): 4 (SBA) Walk 150 ft (QC): 4 (SBA) Gait Assistive Device: FWW # of Steps: 4 1 Step (curb) (QC): 4 4 Steps (QC): 4 Picking up an Object (QC): 4 PT Plan Treatment/Plan Treatment Plan: Continue Plan of Care Treatment Plan: Bed Mobility, Education, Functional Activity [place], Functional Strength, Group Therapy, Gait, Safety, Therapeutic Exercise, Transfers Treatment Duration: Jul 21, 2019 Frequency: At least 5 of 7 days/Wk (IRF) Estimated Hrs Per Day: 1.5 hours per day Patient and/or Family Agrees t: Yes Time/GCodes Time In: 1310 Time Out: 1340 Total Billed Treatment Time: 30 Total Billed Treatment 1 visit FA x20min EX x10min RYAN ESCALANTE PT Jul 10, 2019 13:45
[2019-07-10] MEDS: ENOXAPARIN 40 MG/0.4 ML (LOVENOX) SYR SC SCH (16:55)
[2019-07-10 18:00] VITALS: BP 137/79
--- NOTE | 2019-07-10 19:18 | NUR ---
bedside report received from RUSTAM BROOKS, assume care of pt
[2019-07-10] MEDS: ACETAMINOPHEN 500 MG TAB (TYLENOL) PO PRN (21:14)
[2019-07-10] MEDS: toPIRamate 25 MG (TOPAMAX) TAB PO SCH (21:14)
[2019-07-10] MEDS: SERTRALINE 100 MG (ZOLOFT) TAB PO SCH (21:14)
[2019-07-10] MEDS: rOPINIRole 1 MG (REQUIP) TABLET PO SCH (21:14)
--- NOTE | 2019-07-10 21:14 | NUR ---
c/o pain to abd, level 8/10 on numeric scale Tylenol 1000mg, fsbs 113, up ad al in room
[2019-07-10] MEDS: ALPRAZolam 0.25 MG (XANAX) TAB PO PRN (21:18)
--- NOTE | 2019-07-10 21:18 | NUR ---
c/o anxiety Xanax 0.25mg given
--- NOTE | 2019-07-10 21:48 | NUR ---
rates pain level 8/10 on numeric scale, lortab 5 1 tab given
--- NOTE | 2019-07-10 22:38 | NUR ---
rates pain level 3/10 on numeric scale
[2019-07-11] MEDS: HYDROcodone/APAP 5 MG/325 MG (LORTAB) TAB PO PRN ×5 (01:47→21:05)
--- NOTE | 2019-07-11 01:47 | NUR ---
c/o abd pain level 8/10 on numeric scale, Lortab 5 1 tab po given
--- NOTE | 2019-07-11 02:40 | NUR ---
resting quietly in bed, pain level 0/10 on flacc scale
[2019-07-11 05:55] VITALS: BP 132/85
[2019-07-11] MEDS: inSUlin ASPART (NovoLOG) 1 UNIT/0.01 ML (CHARGE PER UNIT) SC SCH ×4 (06:10→20:06)
[2019-07-11] MEDS: CATHETER FLUSH 10 ML SYR IV SCH ×3 (06:17→21:05)
--- NOTE | 2019-07-11 06:17 | NUR ---
c/o abd pain level 9/10 on numeric scale, Lortab 5 1 tab given
--- NOTE | 2019-07-11 06:52 | NUR ---
c/o pain on urination, notified, orders recieved for in & out cath for U/A, pain level 5/10 on numeric scale
--- NOTE | 2019-07-11 07:06 | NUR ---
bedside report given to DAVID BROOKS
[2019-07-11] MEDS: IRON SUCROSE 200 MG/10 ML (VENOFER) VIAL IV SCH (08:00)
[2019-07-11] MEDS: PANTOPRAZOLE 40 MG (PROTONIX) TAB PO SCH ×2 (08:00→21:04)
[2019-07-11 08:19] LABS: BILIRUBIN,URINE NEGATIVE (NEGATIVE); CLARITY,URINE VERY CLOUDY; COLOR,URINE YELLOW; GLUCOSE, URINE (UA) NEGATIVE (NEGATIVE); KETONES,URINE 1+ (NEGATIVE); LEUKOCYTE ESTERASE ,URINE 3+ (NEGATIVE); NITRITE,URINE POSITIVE (NEGATIVE); PH,URINE 6 (5-9); PROTEIN,URINE NEGATIVE (NEGATIVE)
--- NOTE | 2019-07-11 08:23 | PM&R Progress Note ---
Subjective HPI/CC On Admission Date Seen by Provider: Jul 11, 2019 Time Seen by Provider: 08:30 CC: Debility requiring inpatient rehab admission HPI: This is a 49yoWF who is s/p septic shock ICU status emergent surgery for ga stric perforation maintained on TPN and severe weakness requiring inpatient rehab prior to returning home. Currently she is able to tolerate a few ounces of intake at a time but Dr. Taylor wants her to go very slowly. Pain is better controlled and she is willing to participate in PT in order to ultimately return home. PLOF was independent. Patient does have situational depression currently and we will aggressively treat this to aid in recovery. Subjective/Events-last exam Pt having abdominal pain, feels like she has a UTI. In-and-out cath reveals too numerous to count white cells so will start Rocephin empirically and Pyridium for the pain. CBC, CMP all reviewed, everything within normal limits. No fever or evidence of any sepsis. Otherwise doing very well. 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 Review of Systems General: Fatigue Gastrointestinal: Abdominal Pain Genitourinary: Dysuria, Frequency, Hematuria Objective Exam Vital Signs Vital Signs Date Time Temp Pulse Resp B/P (MAP) Pulse Ox O2 Delivery O2 Flow Rate FiO2 07/11/19 17:53 36.8 94 18 137/79 (98) 99 Room Air Capillary Refill : General Appearance: WD/WN, Chronically ill, Mild Distress HEENT: PERRL/EOMI, Normal ENT Inspection, Pharynx Normal Neck: Full Range of Motion, Normal Inspection, Non Tender, Supple Respiratory: Chest Non Tender, Lungs Clear, Normal Breath Sounds, No Accessory Muscle Use, No Respiratory Distress Cardiovascular: Regular Rate, Rhythm, No Edema, No Gallop, No JVD, No Murmur, Normal Peripheral Pulses Gastrointestinal: Normal Bowel Sounds, No Organomegaly, No Pulsatile Mass, Soft, Tenderness Back: Normal Inspection, No CVA Tenderness, No Vertebral Tenderness Extremity: Normal Capillary Refill, Normal Inspection, Normal Range of Motion, Non Tender, No Calf Tenderness Neurologic/Psychiatric: Alert, Oriented x3, No Motor/Sensory Deficits, yard engineer II- XII Norm as Tested, Depressed Affect Skin: Normal Color, Warm/Dry Lymphatic: No Adenopathy Results/Procedures Lab Laboratory Tests 07/11/19 09:35 Patient resulted labs reviewed. FIM Transfers Therapy Code Descriptions/Definitions Functional [place] Measure: 0=Not Assessed/NA 4=Minimal Assistance 1=Total Assistance 5=Supervision or Setup 2=Maximal Assistance 6=Modified [place] 3=Moderate Assistance 7=Complete IndependenceSCALE: Activities may be completed with or without assistive devices. 0-Zewmudtgxd-tyhjpml completes the activity by him/herself with no assistance from a helper. 5-Set-up or Clean-up Assistance-helper sets up or cleans up; patient completes activity. [place] assists only prior to or following the activity. 4-Supervision or Touching Assistance-helper provides verbal cues and/or touching/steadying and/or contact guard assistance as patient completes activity. Assistance may be provided throughout the activity or intermittently. 3-Partial/Moderate Assistance-helper does LESS THAN HALF the effort. [place] lifts, holds or supports trunk or limbs, but provides less than half the effort. 2-Substantial/Maximal Assistance-helper does MORE THAN HALF the effort. [place] lifts or holds trunk or limbs and provides more than half the effort. 5-Ybxvlqlih-ncyezw does ALL the effort. Patient does none of the effort to complete the activity. Or, the assistance of 2 or more helpers is required for the patient to complete the activity. If activity was not attempted, code reason: 7-Patient Refused. 9-Not Applicable-not attempted and the patient did not perform the activity before the current illness, exacerbation or injury. 10-Not Attempted due to Environmental Limitations-(lack of equipment, weather restraints, etc.). 88-Not Attempted due to Medical Conditions or Safety Concerns. Transfers (B, C, W/C) (FIM): 6 Roll Left to Right (QC): 6 Sit to Lying (QC): 6 Sit to Stand (QC): 6 Chair/Fbj-bf-Ubhqx Xfer(QC): 6 Bed to/from Chair: 6 Car Transfer (QC): 6 Gait Training Does the Patient Walk?: Yes Gait (FIM): 6 Distance: 200' Walk 10 feet (QC): 6 Walk 50 ft with 2 Turns(QC): 6 Walk 150 ft (QC): 6 Walking 10ft/uneven surface-QC: 6 Gait Persons Needed: 0 Gait Assistive Device: None Wheelchair Training Does the Pt Use a Wheelchair?: No Stair Training Stair Training: Handrails/: 1 handrail #of Steps: 12 1 Step (curb) (QC): 6 4 Steps (QC): 6 12 Steps (QC): 6 Stairs: Pattern: Step to Level of Assist: 5 Balance Picking up an Object (QC): 88 ADL-Treatment Eating (QC): 6 Oral Hygiene (QC): 6 (Pt completes at sink) Shower/Bathe Self (QC): 3 (Pt completes sponge bath in stance and sitting at recliner chair. Pt requires SUP in stance, able to complete bottom and back washing, and requires min A with bottom hygiene for thoroughness. Pt states assisted with shower prior to surgery, completing bottom hygiene and back washing. Pt states she would like cream on her bottom. Pt points to cream utilized, completed by therapist.) Upper Body Dressing (QC): 6 (Completes T-shirt donning in chair.) Lower Body Dressing (QC): 5 (Completes LB dressing with SUP. Sock don/ doffing with SUP.) Toileting Hygiene (QC): 6 (delia hygiene wiping with IND) Toilet Transfer (QC): 6 (IND within toilet transfer.) Assessment/Plan Assessment and Plan Assess & Plan/Chief Complaint Assessment: Severe debility s/p septic shock s/p gastric perforation s/p gastric bypass remotely Anemia Hyperglycemia Depression s/p pPost op ileus resolved s/p TPN Acute UTI placing on Rocephin empirically Plan: Monitor closely TPN DC and eating more each day PO intake to increase Continue Venofer until completed Pain control Impressive recovery Drain DC per Dr Brandon Garrido IV empirically (1) Septic shock Status: Resolved Resolution Date/Time: 06/30/19 @ 14:48 (2) Gastrointestinal perforation Status: Resolved (3) Nausea and vomiting Status: Acute (4) Ileus following gastrointestinal surgery (5) On total parenteral nutrition (6) Anemia (7) Hyperglycemia (8) Depressed (9) UTI (urinary tract infection) DIONICIO TURNER DO Jul 11, 2019 08:23
[2019-07-11 08:38] LABS: BACTERIA,URINE LARGE /HPF; SQUAMOUS EPITHELIAL CELL,UR 0-2 /HPF; WBC,URINE >100 /HPF
--- NOTE | 2019-07-11 08:58 | Physical Therapy Daily Note ---
PT Daily Note-Current Subjective Pt. states she is having abdominal pain at 8-9/10 but slightly improved during Rx . Pt. states she strongly suspects a UTI and they are testing her urine Pain Numeric Pain Scale: 8 Location: Medial Location Body Site: Abdomen Pain Description: Stabbing Mental Status Patient Orientation: Normal For Age Attachments: Drains Transfers SCALE: Activities may be completed with or without assistive devices. 0-Esgtefykcf-finqqqj completes the activity by him/herself with no assistance from a helper. 5-Set-up or Clean-up Assistance-helper sets up or cleans up; patient completes activity. [place] assists only prior to or following the activity. 4-Supervision or Touching Assistance-helper provides verbal cues and/or touching/steadying and/or contact guard assistance as patient completes activity. Assistance may be provided throughout the activity or intermittently. 3-Partial/Moderate Assistance-helper does LESS THAN HALF the effort. [place] lifts, holds or supports trunk or limbs, but provides less than half the effort. 2-Substantial/Maximal Assistance-helper does MORE THAN HALF the effort. [place] lifts or holds trunk or limbs and provides more than half the effort. 5-Xrjgwaphv-ycjnvt does ALL the effort. Patient does none of the effort to complete the activity. Or, the assistance of 2 or more helpers is required for the patient to complete the activity. If activity was not attempted, code reason: 7-Patient Refused. 9-Not Applicable-not attempted and the patient did not perform the activity before the current illness, exacerbation or injury. 10-Not Attempted due to Environmental Limitations-(lack of equipment, weather restraints, etc.). 88-Not Attempted due to Medical Conditions or Safety Concerns. Transfers (B, C, W/C): 6 Roll Left to Right (QC): 6 Sit to Lying (QC): 6 Sit to Stand (QC): 6 Chair/Goc-mr-Zdfqy Xfer(QC): 6 Bed to/from Chair: 6 Weight Bearing Full Weight Bearing Full Weight Bearing Gait Training Does the Patient Walk?: Yes Gait: 6 Walk 10 feet (QC): 6 Walk 50 ft with 2 Turns(QC): 6 Walk 150 ft (QC): 6 Gait Persons Needed: 0 Gait Assistive Device: None up ad al, guarded and careful, no LOB Exercises Supine Ex: Bridging, Ankle pumps, Pelvic tilt, Quad Set, Rolling, Glut sets, Heel Slides, Short Arc Quads, Scooting, Straight leg raise, Hip abd/add Supine Reps: 15 (x2) Seated Therapy Exercises: Ankle pumps, Sit to stand, Long arc quads, Hip flexion, Hip abd/add Seated Reps: 10 (x2) Assessment Current Status: Good Progress abdominal pain limits function this date PT Short Term Goals Short Term Goals Time Frame: Jul 07, 2019 Gait Distance Comment: 50' Gait Assistive Device: FWW (SBA ) PT Package Sealer Machine Goals Package Sealer Machine Goals PT Package Sealer Machine Goals Time Frame: Jul 21, 2019 Sit to Lying (QC): 4 (SBA) Lying-Sitting on Side/Bed(QC): 4 (SBA) Sit to Stand (QC): 4 (SBA) Roll Left to Right (QC): 4 (SBA) Chair/Ydb-ma-Vmrts Xfer(QC): 4 (SBA) Car Transfer (QC): 4 (SBA) Distance: 150' Walk 10 feet (QC): 4 (SBA) Walk 10ft-Uneven Surface(QC): 4 (SBA) Walk 50ft with 2 Turns (QC): 4 (SBA) Walk 150 ft (QC): 4 (SBA) Gait Assistive Device: FWW # of Steps: 4 1 Step (curb) (QC): 4 4 Steps (QC): 4 Picking up an Object (QC): 4 PT Plan Treatment/Plan Treatment Plan: Continue Plan of Care Treatment Plan: Bed Mobility, Education, Functional Activity [place], Functional Strength, Group Therapy, Gait, Safety, Therapeutic Exercise, Transfers Treatment Duration: Jul 21, 2019 Frequency: At least 5 of 7 days/Wk (IRF) Estimated Hrs Per Day: 1.5 hours per day Patient and/or Family Agrees t: Yes Safety Risks/Education Patient Education: Gait Training, Transfer Techniques, Correct Positioning, Disease Process, Safety Issues Teaching Recipient: Patient Teaching Methods: Demonstration, Discussion Response to Teaching: Verbalize Understanding, Return Demonstration, Reinforcement Needed Time/GCodes Time In: 800 Time Out: 900 Total Billed Treatment Time: 60 Total Billed Treatment 1,EX25m,GT20m,FA15m PALMER JARAMILLO STRUCTURAL STEEL TRADES WORKER Jul 11, 2019 08:58
--- NOTE | 2019-07-11 09:00 | NUR ---
Pt states more abdominal pain today. Pt states pain with urination. urine specimen by straight cath to be done. Pt vs are unchanged. Pt not moving as quickly as previously seen. Update given to Dr Hagan
[2019-07-11 09:44] LABS: BASOPHILS % (AUTO) 0 % (0-10); EOSINOPHILS # (AUTO) 0.1 10^3/uL (0.0-0.3); EOSINOPHILS % (AUTO) 3 % (0-10); HEMATOCRIT 29 % (35-52); HEMOGLOBIN 8.9 G/DL (11.5-16.0); LYMPHOCYTES # (AUTO) 1.4 X 10^3 (1.0-4.0); LYMPHOCYTES % (AUTO) 38 % (12-44); MEAN CORPUSCULAR HEMOGLOBIN 27 PG (25-34); MEAN CORPUSCULAR HGB CONC 31 G/DL (32-36); MEAN CORPUSCULAR VOLUME 86 FL (80-99); MEAN PLATELET VOLUME 8.3 FL (7.4-10.4); MONOCYTES # (AUTO) 0.4 X 10^3 (0.0-1.0); MONOCYTES % (AUTO) 10 % (0-12); NEUTROPHILS # (AUTO) 1.8 X 10^3 (1.8-7.8); NEUTROPHILS % (AUTO) 49 % (42-75); PLATELET COUNT 390 10^3/uL (130-400); RED CELL DISTRIBUTION WIDTH 16.8 % (10.0-14.5); WHITE BLOOD COUNT 3.6 10^3/uL (4.3-11.0)
--- NOTE | 2019-07-11 09:49 | NUR ---
Patient progressing well with therapies; however, patient reports increased abdominal pain today. RN reports patient has a UTI and culture is pending. Physician has also ordered CBC and CMP-results pending. RN reports output to OFE drains has decreased and surgeon has been notified. Continue to monitor medical status.
[2019-07-11 10:05] LABS: ALANINE AMINOTRANSFERASE 24 U/L (0-55); ALBUMIN 2.5 GM/DL (3.2-4.5); ALKALINE PHOSPHATASE 130 U/L (40-136); BILIRUBIN,TOTAL 0.2 MG/DL (0.1-1.0); BUN/CREATININE RATIO 10; CALCIUM 7.8 MG/DL (8.5-10.1); CARBON DIOXIDE 21 MMOL/L (21-32); CHLORIDE 108 MMOL/L (98-107); CREATININE SERUM 0.73 MG/DL (0.60-1.30); GFR ESTIMATED > 60; GLUCOSE 219 MG/DL (70-105); POTASSIUM 3.7 MMOL/L (3.6-5.0); SODIUM 138 MMOL/L (135-145); TOTAL PROTEIN 5.3 GM/DL (6.4-8.2)
--- NOTE | 2019-07-11 10:28 | NUR ---
DR. TURNER TO FLOOR. REVIEWED UA RESULTS. ORDERS TO START ROCEPHIN- 1GM IV DAILY AND PYRIDIUM- 100 MG PO TIDPC.
--- NOTE | 2019-07-11 10:35 | Occupational Ther Daily Note ---
OT Current Status-Daily Note Subjective Pt alert, sitting in recliner. Pt stated that she does have an infection and does not feel well today. Pt agrees to therapy. Mental Status/Objective Patient Orientation: Person, Place, Time, Situation Attachments: Drains (2), IV ADL-Treatment Discussed with nrsg about covering up drain sites for showering. Pt agrees to shower, states that it will feel good. Pt able to transport clothing to bathroom. Pt transferred into shower by self using grabbars and shower bench. Using long handle sponge, grabbars, shower bench and hand held shower pt able to complete own shower. Pt then doffed/donned clothing by self. Assist only to cover IV and drain areas. Pt stood at sink to complete own grooming. After, pt reclined in recliner with call light/phone in reach. All needs met in room. Therapy Code Descriptions/Definitions Functional [place] Measure: 0=Not Assessed/NA 4=Minimal Assistance 1=Total Assistance 5=Supervision or Setup 2=Maximal Assistance 6=Modified [place] 3=Moderate Assistance 7=Complete IndependenceSCALE: Activities may be completed with or without assistive devices. 6-Zznvkatbyo-ylziaeb completes the activity by him/herself with no assistance from a helper. 5-Set-up or Clean-up Assistance-helper sets up or cleans up; patient completes activity. [place] assists only prior to or following the activity. 4-Supervision or Touching Assistance-helper provides verbal cues and/or touching/steadying and/or contact guard assistance as patient completes activity. Assistance may be provided throughout the activity or intermittently. 3-Partial/Moderate Assistance-helper does LESS THAN HALF the effort. [place] lifts, holds or supports trunk or limbs, but provides less than half the effort. 2-Substantial/Maximal Assistance-helper does MORE THAN HALF the effort. [place] lifts or holds trunk or limbs and provides more than half the effort. 4-Zdsnqpgoi-hnvrtu does ALL the effort. Patient does none of the effort to complete the activity. Or, the assistance of 2 or more helpers is required for the patient to complete the activity. If activity was not attempted, code reason: 7-Patient Refused. 9-Not Applicable-not attempted and the patient did not perform the activity before the current illness, exacerbation or injury. 10-Not Attempted due to Environmental Limitations-(lack of equipment, weather restraints, etc.). 88-Not Attempted due to Medical Conditions or Safety Concerns. Oral Hygiene (QC): 6 Bathing Location: L Arm, R Arm, L Upper Leg, R Upper Leg, L Lower Leg (including foot), R Lower Leg (including foot), Chest, Abdomen, Buttocks, Perineal Area Shower/Bathe Self (QC): 6 Upper Body Dressing (QC): 6 Lower Body Dressing (QC): 6 OT Short Term Goals Short Term Goals Eating(FIM): 4 (met) Upper Body Dressing(FIM): 2 (met) Lower Body Dressing(FIM): 2 (met) Additional Short Term Goals: 1-Demonstrate ADL Tasks, 2-Verbalize Understanding, 3-ImproveStrength/Carmina 1=Demonstrate adherence to instructed precautions during ADL tasks. 2=Patient will verbalize/demonstrate understanding of assistive devices/modifications for ADL. 3=Patient will improve strength/tolerance for activity to enable patient to perform ADL's. OT Shelter Goals Shelter Goals Eating (QC): 6 (met) Oral Hygiene (QC): 6 (met) Shower/Bathe Self (QC): 5 Upper Body Dressing (QC): 6 (met) Lower Body Dressing (QC): 6 On/Off Footwear (QC): 6 Toileting Hygiene (QC): 6 (met) Toilet/Commode Transfer (QC): 6 (met) Additional Goals: 1-Demonstrate ADL Tasks, 2-Verbalize Understanding, 3-ImproveStrength/Carmina 1=Demonstrate adherence to instructed precautions during ADL tasks. 2=Patient will verbalize/demonstrate understanding of assistive devices/modifications for ADL. 3=Patient will improve strength/tolerance for activity to enable patient to perform ADL's. OT Education/Plan Problem List/Assessment Assessment: Decreased Activ Tolerance Discharge Recommendations Plan/Recommendations: Continue POC Treatment Plan/Plan of Care Patient would benefit from OT for education, treatment and training to promote independence in ADL's, mobility, safety and/or upper extremity function for ADL's. Plan of Care: ADL Retraining, Caregiver Training, Concurrent Therapy, Functional Mobility, Group Exercise/Act as Ind, UE Funct Exercise/Act Treatment Duration: Jul 14, 2019 Frequency: At least 5 of 7 days/Wk (IRF) Estimated Hrs Per Day: 1.5 hours per day Agreement: Yes Rehab Potential: Fair Time/GCodes Start Time: 10:00 Stop Time: 11:00 Total Time Billed (hr/min): 60 Billed Treatment Time 1 visit-ADL 4 (60 min) ERNESTO DANGELO Jul 11, 2019 10:35
[2019-07-11 10:43] LABS: ANISOCYTOSIS SLIGHT; BAND NEUTROPHILS 2 %; BASOPHILS % (MANUAL) 0 %; EOSINOPHILS % (MANUAL) 3 %; LYMPHOCYTES % (MANUAL) 33 %; MONOCYTES % (MANUAL) 7 %; NEUTROPHILS % (MANUAL) 55 %
--- NOTE | 2019-07-11 11:29 | Physical Therapy Daily Note ---
PT Daily Note-Current Subjective Agrees to Rx. Feels much better now and has confirmation she has a UTI Pain Location: No Pain Reported Mental Status Patient Orientation: Normal For Age Attachments: Drains Transfers SCALE: Activities may be completed with or without assistive devices. 0-Cstbjydkwy-orcmkcy completes the activity by him/herself with no assistance from a helper. 5-Set-up or Clean-up Assistance-helper sets up or cleans up; patient completes activity. [place] assists only prior to or following the activity. 4-Supervision or Touching Assistance-helper provides verbal cues and/or touching/steadying and/or contact guard assistance as patient completes activity. Assistance may be provided throughout the activity or intermittently. 3-Partial/Moderate Assistance-helper does LESS THAN HALF the effort. [place] lifts, holds or supports trunk or limbs, but provides less than half the effort. 2-Substantial/Maximal Assistance-helper does MORE THAN HALF the effort. [place] lifts or holds trunk or limbs and provides more than half the effort. 4-Zthrqrpix-vwmqed does ALL the effort. Patient does none of the effort to complete the activity. Or, the assistance of 2 or more helpers is required for the patient to complete the activity. If activity was not attempted, code reason: 7-Patient Refused. 9-Not Applicable-not attempted and the patient did not perform the activity before the current illness, exacerbation or injury. 10-Not Attempted due to Environmental Limitations-(lack of equipment, weather restraints, etc.). 88-Not Attempted due to Medical Conditions or Safety Concerns. Transfers (B, C, W/C): 6 Roll Left to Right (QC): 6 Sit to Lying (QC): 6 Sit to Stand (QC): 6 Chair/Fnb-zh-Ftuoa Xfer(QC): 6 Bed to/from Chair: 6 Car Transfer (QC): 6 Weight Bearing Full Weight Bearing Full Weight Bearing Gait Training Does the Patient Walk?: Yes Gait: 6 Walk 10 feet (QC): 6 Walk 50 ft with 2 Turns(QC): 6 Walk 150 ft (QC): 6 Walking 10ft/uneven surface-QC: 6 Gait Persons Needed: 0 Gait Assistive Device: None slow, careful no LOB Stair Training Stair Training: Handrails/: 1 handrail #of Steps: 12 1 Step (curb) (QC): 6 4 Steps (QC): 6 12 Steps (QC): 6 Stairs: Pattern: Reciprocal Level of Assist: 6 Balance Picking up an Object (QC): 6 Assessment Current Status: Excellent Progress decreased pain, increased function PT Short Term Goals Short Term Goals Time Frame: Jul 07, 2019 Gait Distance Comment: 50' Gait Assistive Device: FWW (SBA ) PT Septic Cleaner Goals Septic Cleaner Goals PT Septic Cleaner Goals Time Frame: Jul 21, 2019 Sit to Lying (QC): 4 (SBA) Lying-Sitting on Side/Bed(QC): 4 (SBA) Sit to Stand (QC): 4 (SBA) Roll Left to Right (QC): 4 (SBA) Chair/Pcz-ej-Faznt Xfer(QC): 4 (SBA) Car Transfer (QC): 4 (SBA) Distance: 150' Walk 10 feet (QC): 4 (SBA) Walk 10ft-Uneven Surface(QC): 4 (SBA) Walk 50ft with 2 Turns (QC): 4 (SBA) Walk 150 ft (QC): 4 (SBA) Gait Assistive Device: FWW # of Steps: 4 1 Step (curb) (QC): 4 4 Steps (QC): 4 Picking up an Object (QC): 4 PT Plan Treatment/Plan Treatment Plan: Continue Plan of Care Treatment Plan: Bed Mobility, Education, Functional Activity Carmina, Functional Strength, Group Therapy, Gait, Safety, Therapeutic Exercise, Transfers Treatment Duration: Jul 21, 2019 Frequency: At least 5 of 7 days/Wk (IRF) Estimated Hrs Per Day: 1.5 hours per day Patient and/or Family Agrees t: Yes Safety Risks/Education Patient Education: Gait Training, Transfer Techniques, Steps, Correct Positioning, Disease Process, Safety Issues Teaching Recipient: Patient Teaching Methods: Demonstration, Discussion Response to Teaching: Verbalize Understanding, Return Demonstration Time/GCodes Time In: 1100 Time Out: 1130 Total Billed Treatment Time: 30 Total Billed Treatment 1,FA30m PALMER JARAMILLO HOME HEALTH SPEECH THERAPIST Jul 11, 2019 11:29
[2019-07-11] MEDS: cefTRIAXone FOR IV USE 1,000 MG in WATER (STERILE) FOR INJECTION 10 ML IV SCH (11:43)
[2019-07-11] MEDS: PHENAZOPYRIDINE 100 MG (PYRIDIUM) TABLET PO SCH ×2 (13:28→17:38)
--- NOTE | 2019-07-11 13:30 | Occupational Ther Daily Note ---
OT Current Status-Daily Note Subjective Pt alert, reclining in chair. Pt states she still does not feel well. Does agree to therapy. Pt states that they have put her on antibiotics which made her nauseous. Mental Status/Objective Patient Orientation: Person, Place, Time, Situation Attachments: Drains (2), IV (midline) ADL-Treatment Therapy Code Descriptions/Definitions Functional [place] Measure: 0=Not Assessed/NA 4=Minimal Assistance 1=Total Assistance 5=Supervision or Setup 2=Maximal Assistance 6=Modified [place] 3=Moderate Assistance 7=Complete IndependenceSCALE: Activities may be completed with or without assistive devices. 3-Ooevcmqrot-zxkzrui completes the activity by him/herself with no assistance from a helper. 5-Set-up or Clean-up Assistance-helper sets up or cleans up; patient completes activity. [place] assists only prior to or following the activity. 4-Supervision or Touching Assistance-helper provides verbal cues and/or touching/steadying and/or contact guard assistance as patient completes activity. Assistance may be provided throughout the activity or intermittently. 3-Partial/Moderate Assistance-helper does LESS THAN HALF the effort. [place] lifts, holds or supports trunk or limbs, but provides less than half the effort. 2-Substantial/Maximal Assistance-helper does MORE THAN HALF the effort. [place] lifts or holds trunk or limbs and provides more than half the effort. 8-Axxabmvtx-jeljau does ALL the effort. Patient does none of the effort to complete the activity. Or, the assistance of 2 or more helpers is required for the patient to complete the activity. If activity was not attempted, code reason: 7-Patient Refused. 9-Not Applicable-not attempted and the patient did not perform the activity before the current illness, exacerbation or injury. 10-Not Attempted due to Environmental Limitations-(lack of equipment, weather restraints, etc.). 88-Not Attempted due to Medical Conditions or Safety Concerns. Other Treatment Pt completed UE exercises with 1# wt attached to wrists to increase strength and activity tolerance. Pt tolerated well though did fatigue quickly. After therapy, pt sitting in recliner with call light/phone in reach. All needs met in room. OT Short Term Goals Short Term Goals Eating(FIM): 4 (met) Upper Body Dressing(FIM): 2 (met) Lower Body Dressing(FIM): 2 (met) Additional Short Term Goals: 1-Demonstrate ADL Tasks, 2-Verbalize Understanding, 3-ImproveStrength/[place] 1=Demonstrate adherence to instructed precautions during ADL tasks. 2=Patient will verbalize/demonstrate understanding of assistive devices/ modifications for ADL. 3=Patient will improve strength/tolerance for activity to enable patient to perform ADL's. OT Roof Slater Goals Ro[place] Goals Eating (QC): 6 (met) Oral Hygiene (QC): 6 (met) Shower/Bathe Self (QC): 5 Upper Body Dressing (QC): 6 (met) Lower Body Dressing (QC): 6 On/Off Footwear (QC): 6 Toileting Hygiene (QC): 6 (met) Toilet/Commode Transfer (QC): 6 (met) Additional Goals: 1-Demonstrate ADL Tasks, 2-Verbalize Understanding, 3- ImproveStrength/Carmina 1=Demonstrate adherence to instructed precautions during ADL tasks. 2=Patient will verbalize/demonstrate understanding of assistive devices/modifications for ADL. 3=Patient will improve strength/tolerance for activity to enable patient to perform ADL's. OT Education/Plan Problem List/Assessment Assessment: Decreased Activ Tolerance, Decreased UE Strength Discharge Recommendations Plan/Recommendations: Continue POC Treatment Plan/Plan of Care Patient would benefit from OT for education, treatment and training to promote independence in ADL's, mobility, safety and/or upper extremity function for ADL's. Plan of Care: ADL Retraining, Caregiver Training, Concurrent Therapy, Functional Mobility, Group Exercise/Act as Ind, UE Funct Exercise/Act Treatment Duration: Jul 14, 2019 Frequency: At least 5 of 7 days/Wk (IRF) Estimated Hrs Per Day: 1.5 hours per day Agreement: Yes Rehab Potential: Fair Time/GCodes Start Time: 13:00 Stop Time: 13:30 Total Time Billed (hr/min): 30 Billed Treatment Time 1 visit-EX 2 (30 min) ERNESTO DANGELO Jul 11, 2019 13:30
--- NOTE | 2019-07-11 14:12 | NUR ---
PT RESTING IN CHAIR AT THIS TIME. LEGS ELEVATED
[2019-07-11] MEDS: ACETAMINOPHEN 500 MG TAB (TYLENOL) PO PRN (14:36)
--- NOTE | 2019-07-11 16:40 | NUR ---
PLACEMENT OF ALLEVYN TO COCCYX FOR WOUND AT SMALL OPEN AREA WHERE TOP LAYER OF SKIN HAS BEEN REMOVED. WOUND SITE IS LEFT SIDE OF BUTTOCKS AT 500
--- NOTE | 2019-07-11 16:42 | NUR ---
EDUCATION PROVIDED ON PREVENTION/POSITION ROTATION EVERY 2 HOURS/MONITORING FOR SIGNS/SYMPTOMS OF INFECTION
[2019-07-11] MEDS: ENOXAPARIN 40 MG/0.4 ML (LOVENOX) SYR SC SCH (17:38)
[2019-07-11 17:53] VITALS: BP 137/79
[2019-07-11] MEDS: SERTRALINE 100 MG (ZOLOFT) TAB PO SCH (21:04)
[2019-07-11] MEDS: rOPINIRole 1 MG (REQUIP) TABLET PO SCH (21:04)
[2019-07-11] MEDS: toPIRamate 25 MG (TOPAMAX) TAB PO SCH (21:05)
[2019-07-11] MEDS: ALPRAZolam 0.25 MG (XANAX) TAB PO PRN (22:17)
[2019-07-12] MEDS: HYDROcodone/APAP 5 MG/325 MG (LORTAB) TAB PO PRN ×5 (04:25→21:15)
[2019-07-12] MEDS: inSUlin ASPART (NovoLOG) 1 UNIT/0.01 ML (CHARGE PER UNIT) SC SCH ×4 (04:52→20:50)
[2019-07-12 05:06] VITALS: BP 147/85
[2019-07-12] MEDS: CATHETER FLUSH 10 ML SYR IV SCH ×3 (06:04→20:42)
[2019-07-12] MEDS: PANTOPRAZOLE 40 MG (PROTONIX) TAB PO SCH ×2 (08:36→20:41)
[2019-07-12] MEDS: PHENAZOPYRIDINE 100 MG (PYRIDIUM) TABLET PO SCH ×3 (08:36→17:06)
--- NOTE | 2019-07-12 10:10 | PM&R Progress Note ---
Subjective HPI/CC On Admission Date Seen by Provider: Jul 12, 2019 Time Seen by Provider: 08:30 CC: Debility requiring inpatient rehab admission HPI: This is a 49yoWF who is s/p septic shock ICU status emergent surgery for gastric perforation maintained on TPN and severe weakness requiring inpatient rehab prior to returning home. Currently she is able to tolerate a few ounces of intake at a time but Dr. Taylor wants her to go very slowly. Pain is better controlled and she is willing to participate in PT in order to ultimately return home. PLOF was independent. Patient does have situational depression currently and we will aggressively treat this to aid in recovery. Subjective/Events-last exam DC is planned for tomorrow Home health with PT and OT an nurse will be initiated Will heck urine culture and maintain on Rocephin empirically OFE drain will be assessed by Dr. Gregory Up Ad-Юлия in the room Flat affect continues Checked meds and labs Conferred with air conditioning engineer therapy notes Review of Systems General: Fatigue Gastrointestinal: Abdominal Pain Objective Exam Vital Signs Vital Signs Date Time Temp Pulse Resp B/P (MAP) Pulse Ox O2 Delivery O2 Flow Rate FiO2 07/12/19 20:30 Room Air 07/12/19 18:00 36.5 98 18 128/64 (85) 100 Capillary Refill : General Appearance: WD/WN, Chronically ill, Mild Distress HEENT: PERRL/EOMI, Normal ENT Inspection, Pharynx Normal Neck: Full Range of Motion, Normal Inspection, Non Tender, Supple Respiratory: Chest Non Tender, Lungs Clear, Normal Breath Sounds, No Accessory Muscle Use, No Respiratory Distress Cardiovascular: Regular Rate, Rhythm, No Edema, No Gallop, No JVD, No Murmur, Normal Peripheral Pulses Gastrointestinal: Normal Bowel Sounds, No Organomegaly, No Pulsatile Mass, Soft, Tenderness Back: Normal Inspection, No CVA Tenderness, No Vertebral Tenderness Extremity: Normal Capillary Refill, Normal Inspection, Normal Range of Motion, Non Tender, No Calf Tenderness Neurologic/Psychiatric: Alert, Oriented x3, No Motor/Sensory Deficits, lye bath operator II- XII Norm as Tested, Depressed Affect Skin: Normal Color, Warm/Dry Lymphatic: No Adenopathy Results/Procedures Lab Patient resulted labs reviewed. FIM Transfers Therapy Code Descriptions/Definitions Functional [place] Measure: 0=Not Assessed/NA 4=Minimal Assistance 1=Total Assistance 5=Supervision or Setup 2=Maximal Assistance 6=Modified [place] 3=Moderate Assistance 7=Complete IndependenceSCALE: Activities may be completed with or without assistive devices. 7-Cnuincxrje-ruhyjux completes the activity by him/herself with no assistance from a helper. 5-Set-up or Clean-up Assistance-helper sets up or cleans up; patient completes activity. [place] assists only prior to or following the activity. 4-Supervision or Touching Assistance-helper provides verbal cues and/or touching/steadying and/or contact guard assistance as patient completes activity. Assistance may be provided throughout the activity or intermittently. 3-Partial/Moderate Assistance-helper does LESS THAN HALF the effort. [place] lifts, holds or supports trunk or limbs, but provides less than half the effort. 2-Substantial/Maximal Assistance-helper does MORE THAN HALF the effort. [place] lifts or holds trunk or limbs and provides more than half the effort. 5-Jissaektl-bqjsxz does ALL the effort. Patient does none of the effort to complete the activity. Or, the assistance of 2 or more helpers is required for the patient to complete the activity. If activity was not attempted, code reason: 7-Patient Refused. 9-Not Applicable-not attempted and the patient did not perform the activity before the current illness, exacerbation or injury. 10-Not Attempted due to Environmental Limitations-(lack of equipment, weather restraints, etc.). 88-Not Attempted due to Medical Conditions or Safety Concerns. Transfers (B, C, W/C) (FIM): 6 Roll Left to Right (QC): 6 Sit to Lying (QC): 6 Sit to Stand (QC): 6 Chair/Sgu-dg-Nplxy Xfer(QC): 6 Bed to/from Chair: 6 Car Transfer (QC): 6 Gait Training Does the Patient Walk?: Yes Gait (FIM): 6 Distance: 200' Walk 10 feet (QC): 6 Walk 50 ft with 2 Turns(QC): 6 Walk 150 ft (QC): 6 Walking 10ft/uneven surface-QC: 6 Gait Persons Needed: 0 Gait Assistive Device: None Wheelchair Training Does the Pt Use a Wheelchair?: No Stair Training Stair Training: Handrails/: 1 handrail #of Steps: 12 1 Step (curb) (QC): 6 4 Steps (QC): 6 12 Steps (QC): 6 Stairs: Pattern: Reciprocal Level of Assist: 6 Balance Picking up an Object (QC): 6 ADL-Treatment Eating (QC): 6 Oral Hygiene (QC): 6 Bathing Location: L Arm, R Arm, L Upper Leg, R Upper Leg, L Lower Leg (including foot), R Lower Leg (including foot), Chest, Abdomen, Buttocks, Perineal Area Shower/Bathe Self (QC): 6 Upper Body Dressing (QC): 6 Lower Body Dressing (QC): 6 Toileting Hygiene (QC): 6 (delia hygiene wiping with IND) Toilet Transfer (QC): 6 (IND within toilet transfer.) Assessment/Plan Assessment and Plan Assess & Plan/Chief Complaint Assessment: Severe debility s/p septic shock s/p gastric perforation s/p gastric bypass remotely Anemia Hyperglycemia Depression s/p pPost op ileus resolved s/p TPN Acute UTI placing on Rocephin empirically Plan: Monitor closely TPN DC and eating more each day PO intake to increase Continue Venofer until completed Pain control Impressive recovery Drain DC per Dr Brandon Garrido IV empirically DC home (1) Septic shock Status: Resolved Resolution Date/Time: 06/30/19 @ 14:48 (2) Gastrointestinal perforation Status: Resolved (3) Nausea and vomiting Status: Acute (4) Ileus following gastrointestinal surgery (5) On total parenteral nutrition (6) Anemia (7) Hyperglycemia (8) Depressed (9) UTI (urinary tract infection) DIONICIO TURNER DO Jul 12, 2019 10:10
[2019-07-12] MEDS: cefTRIAXone FOR IV USE 1,000 MG in WATER (STERILE) FOR INJECTION 10 ML IV SCH (10:49)
--- NOTE | 2019-07-12 11:00 | NUR ---
DENIED NAUSEA AFTER ROCEPHIN GIVEN. SMALL AMOUNT OF BLOODY DRAINAGE IN OFE DRAIN "B" WHICH IS NEW. DR. HERNANDEZ NOTIFIED AND HE PLANS TO SEE PATIENT TODAY. PATIENT COMPLAINS OF GENERALIZED ACHINESS TODAY WHICH SHE CONTRIBUTES TO UTI.
--- NOTE | 2019-07-12 11:05 | Occupational Ther Daily Note ---
OT Current Status-Daily Note Subjective Pt alert, sitting in recliner. Pt agrees to therapy. Pt stated that she does feel better than yesterday, but still does not feel 100%. Pt stated that warm blankets helps with abdominal cramping, warm blankets given to pt. Mental Status/Objective Patient Orientation: Person, Place, Time, Situation ADL-Treatment Pt able to don/doff socks by self (Footwear QC 6). Pt declined shower and changing clothing today. Therapy Code Descriptions/Definitions Functional [place] Measure: 0=Not Assessed/NA 4=Minimal Assistance 1=Total Assistance 5=Supervision or Setup 2=Maximal Assistance 6=Modified [place] 3=Moderate Assistance 7=Complete IndependenceSCALE: Activities may be completed with or without assistive devices. 0-Peobcdkihr-iszgmnp completes the activity by him/herself with no assistance from a helper. 5-Set-up or Clean-up Assistance-helper sets up or cleans up; patient completes activity. [place] assists only prior to or following the activity. 4-Supervision or Touching Assistance-helper provides verbal cues and/or touching /steadying and/or contact guard assistance as patient completes activity. Assistance may be provided throughout the activity or intermittently. 3-Partial/Moderate Assistance-helper does LESS THAN HALF the effort. [place] lifts, holds or supports trunk or limbs, but provides less than half the effort. 2-Substantial/Maximal Assistance-helper does MORE THAN HALF the effort. [place] lifts or holds trunk or limbs and provides more than half the effort. 0-Vbuisqsma-aoeazf does ALL the effort. Patient does none of the effort to complete the activity. Or, the assistance of 2 or more helpers is required for the patient to complete the activity. If activity was not attempted, code reason: 7-Patient Refused. 9-Not Applicable-not attempted and the patient did not perform the activity before the current illness, exacerbation or injury. 10-Not Attempted due to Environmental Limitations-(lack of equipment, weather restraints, etc.). 88-Not Attempted due to Medical Conditions or Safety Concerns. Toileting Hygiene (QC): 6 (Pt completes independently.) Toilet Transfer (QC): 6 (Pt completes independently.) Other Treatment Pt ambulated to therapy gym without AE. Completes arm bike with minimal resistance for 15 min, 2 recovery breaks due to abdominal cramping, to increase activity tolerance and UE strength. 3 B wrist and forearm strengthening exercises using 1# wt to increase cloth mercerizer operator and hand strength, 3 sets 10 reps. Pt requested to go back to room to use bathroom. After therapy, pt sitting in recliner with call light/phone in reach. All needs met in room. OT Short Term Goals Short Term Goals Eating(FIM): 4 (met) Upper Body Dressing(FIM): 2 (met) Lower Body Dressing(FIM): 2 (met) Additional Short Term Goals: 1-Demonstrate ADL Tasks, 2-Verbalize Understanding, 3-ImproveStrength/[place] 1=Demonstrate adherence to instructed precautions during ADL tasks. 2=Patient will verbalize/demonstrate understanding of assistive devices/modifications for ADL. 3=Patient will improve strength/tolerance for activity to enable patient to perform ADL's. OT Penitentiary Goals Chemical Process Equipment Operator Goals Eating (QC): 6 (met) Oral Hygiene (QC): 6 (met) Shower/Bathe Self (QC): 5 Upper Body Dressing (QC): 6 (met) Lower Body Dressing (QC): 6 On/Off Footwear (QC): 6 Toileting Hygiene (QC): 6 (met) Toilet/Commode Transfer (QC): 6 (met) Additional Goals: 1-Demonstrate ADL Tasks, 2-Verbalize Understanding, 3-ImproveStrength/Carmina 1=Demonstrate adherence to instructed precautions during ADL tasks. 2=Patient will verbalize/demonstrate understanding of assistive devices/modifications for ADL. 3=Patient will improve strength/tolerance for activity to enable patient to perform ADL's. OT Education/Plan Problem List/Assessment Assessment: Decreased Activ Tolerance, Decreased UE Strength Discharge Recommendations Plan/Recommendations: Continue POC Treatment Plan/Plan of Care Patient would benefit from OT for education, treatment and training to promote independence in ADL's, mobility, safety and/or upper extremity function for ADL's. Plan of Care: ADL Retraining, Caregiver Training, Concurrent Therapy, Functional Mobility, Group Exercise/Act as Ind, UE Funct Exercise/Act Treatment Duration: Jul 14, 2019 Frequency: At least 5 of 7 days/Wk (IRF) Estimated Hrs Per Day: 1.5 hours per day Agreement: Yes Rehab Potential: Fair Time/GCodes Start Time: 09:30 Stop Time: 10:30 Total Time Billed (hr/min): 60 Billed Treatment Time 1 visit-ADL 2 (23 min) EX 2 (37 min) ERNESTO DANGELO Jul 12, 2019 11:05
--- NOTE | 2019-07-12 12:04 | Physical Therapy Daily Note ---
PT Daily Note-Current Subjective Pt sitting in recliner upon arrival. Pt agrees to PT. Nurse is present and pt has just finished antibiotics before HOST/HOSTESS RESTAURANT arrives. Pain Numeric Pain Scale: 5-Moderate Pain Location Body Site: Abdomen Pain Description: Ache, Tightness Mental Status Patient Orientation: Person, Place, Time, Situation Attachments: IV Transfers SCALE: Activities may be completed with or without assistive devices. 7-Cnsfdphrlc-glwzsaf completes the activity by him/herself with no assistance from a helper. 5-Set-up or Clean-up Assistance-helper sets up or cleans up; patient completes activity. [place] assists only prior to or following the activity. 4-Supervision or Touching Assistance-helper provides verbal cues and/or touching/steadying and/or contact guard assistance as patient completes activity. Assistance may be provided throughout the activity or intermittently. 3-Partial/Moderate Assistance-helper does LESS THAN HALF the effort. [place] lifts, holds or supports trunk or limbs, but provides less than half the effort. 2-Substantial/Maximal Assistance-helper does MORE THAN HALF the effort. [place] lifts or holds trunk or limbs and provides more than half the effort. 8-Sskieyhza-ngkzbv does ALL the effort. Patient does none of the effort to complete the activity. Or, the assistance of 2 or more helpers is required for the patient to complete the activity. If activity was not attempted, code reason: 7-Patient Refused. 9-Not Applicable-not attempted and the patient did not perform the activity before the current illness, exacerbation or injury. 10-Not Attempted due to Environmental Limitations-(lack of equipment, weather restraints, etc.). 88-Not Attempted due to Medical Conditions or Safety Concerns. Sit to Stand (QC): 6 Weight Bearing Full Weight Bearing Full Weight Bearing Gait Training Does the Patient Walk?: Yes Gait: 6 Distance: 750' Walk 10 feet (QC): 6 Walk 50 ft with 2 Turns(QC): 6 Walk 150 ft (QC): 6 Gait Persons Needed: 1 Gait Assistive Device: None Pt walks a little stiff, antalgic gait from sore abdomen. Wheelchair Training Does the Pt Use a Wheelchair?: No Exercises NuStep Minutes: 10 NuStep Workload: 4 Treatments Pt transfers from recliner to standing then ambulates in hallway, to main floor of hospital before returning to ARU. Pt uses NuStep then returns to room to rest in recliner at end of tx. Pt has all needs met, call light in hand. Assessment Current Status: Good Progress Pt has improved with independence and safety of tasks including transfers and ambulation. Pt demonstrations soreness in abdomen although this does not limit participation. PT Short Term Goals Short Term Goals Time Frame: Jul 07, 2019 Gait Distance Comment: 50' Gait Assistive Device: FWW (SBA ) PT Assisted Goals Assisted Goals PT Dishwasher Preparer Goals Time Frame: Jul 21, 2019 Sit to Lying (QC): 4 (SBA) Lying-Sitting on Side/Bed(QC): 4 (SBA) Sit to Stand (QC): 4 (SBA) Roll Left to Right (QC): 4 (SBA) Chair/Zpd-rh-Evjus Xfer(QC): 4 (SBA) Car Transfer (QC): 4 (SBA) Distance: 150' Walk 10 feet (QC): 4 (SBA) Walk 10ft-Uneven Surface(QC): 4 (SBA) Walk 50ft with 2 Turns (QC): 4 (SBA) Walk 150 ft (QC): 4 (SBA) Gait Assistive Device: FWW # of Steps: 4 1 Step (curb) (QC): 4 4 Steps (QC): 4 Picking up an Object (QC): 4 PT Plan Problem List Problem List: Activity Tolerance Treatment/Plan Treatment Plan: Continue Plan of Care Treatment Plan: Bed Mobility, Education, Functional Activity Carmina, Functional Strength, Group Therapy, Gait, Safety, Therapeutic Exercise, Transfers Treatment Duration: Jul 21, 2019 Frequency: At least 5 of 7 days/Wk (IRF) Estimated Hrs Per Day: 1.5 hours per day Patient and/or Family Agrees t: Yes Safety Risks/Education Patient Education: Gait Training, Correct Positioning, Safety Issues Teaching Recipient: Patient Teaching Methods: Discussion Response to Teaching: Verbalize Understanding Time/GCodes Time In: 1100 Time Out: 1200 Total Billed Treatment Time: 60 Total Billed Treatment 1, GT x2 (30m), EX (15m) & FA (15m) ALF PITTS HOST/HOSTESS RESTAURANT Jul 12, 2019 12:04
--- NOTE | 2019-07-12 13:42 | Occupational Ther Daily Note ---
OT Current Status-Daily Note Subjective Pt alert, sitting in recliner. Pt stated that she had just gotten a pain pill and would like to complete session in room. Pt agrees to therapy. Mental Status/Objective Patient Orientation: Person, Place, Time, Situation Attachments: Drains (2), IV ADL-Treatment Therapy Code Descriptions/Definitions Functional [place] Measure: 0=Not Assessed/NA 4=Minimal Assistance 1=Total Assistance 5=Supervision or Setup 2=Maximal Assistance 6=Modified [place] 3=Moderate Assistance 7=Complete IndependenceSCALE: Activities may be completed with or without assistive devices. 1-Zpbsewoand-ctfmkit completes the activity by him/herself with no assistance f rom a helper. 5-Set-up or Clean-up Assistance-helper sets up or cleans up; patient completes activity. [place] assists only prior to or following the activity. 4-Supervision or Touching Assistance-helper provides verbal cues and/or touching/steadying and/or contact guard assistance as patient completes activity. Assistance may be provided throughout the activity or intermittently. 3-Partial/Moderate Assistance-helper does LESS THAN HALF the effort. [place] lifts, holds or supports trunk or limbs, but provides less than half the effort. 2-Substantial/Maximal Assistance-helper does MORE THAN HALF the effort. [place] lifts or holds trunk or limbs and provides more than half the effort. 0-Bjnyutiob-ceizsx does ALL the effort. Patient does none of the effort to complete the activity. Or, the assistance of 2 or more helpers is required for the patient to complete the activity. If activity was not attempted, code reason: 7-Patient Refused. 9-Not Applicable-not attempted and the patient did not perform the activity before the current illness, exacerbation or injury. 10-Not Attempted due to Environmental Limitations-(lack of equipment, weather restraints, etc.). 88-Not Attempted due to Medical Conditions or Safety Concerns. Other Treatment Discussed with pt needs she will have when she goes home. Pt stated that she has a bathroom that has tub/shower and another that has a walk-in shower. Pt uses walk-in shower at home. Pt then completed UE exercises to increase B UE strength and fine motor coordination and strength for daily functional tasks using 1# wt attached to wrists and resistive pegs, 50 each hand. Pt tolerated well though commented that she could not believe how weak she had become. After therapy, pt sitting in recliner with call light/phone in reach. All needs met in room. OT Short Term Goals Short Term Goals Eating(FIM): 4 (met) Upper Body Dressing(FIM): 2 (met) Lower Body Dressing(FIM): 2 (met) Additional Short Term Goals: 1-Demonstrate ADL Tasks, 2-Verbalize Understanding, 3-ImproveStrength/[place] 1=Demonstrate adherence to instructed precautions during ADL tasks. 2=Patient will verbalize/demonstrate understanding of assistive devices/modifications for ADL. 3=Patient will improve strength/tolerance for activity to enable patient to pe rform ADL's. OT Mcfp Goals [place] Goals Eating (QC): 6 (met) Oral Hygiene (QC): 6 (met) Shower/Bathe Self (QC): 5 Upper Body Dressing (QC): 6 (met) Lower Body Dressing (QC): 6 On/Off Footwear (QC): 6 Toileting Hygiene (QC): 6 (met) Toilet/Commode Transfer (QC): 6 (met) Additional Goals: 1-Demonstrate ADL Tasks, 2-Verbalize Understanding, 3- ImproveStrength/Carmina 1=Demonstrate adherence to instructed precautions during ADL tasks. 2=Patient will verbalize/demonstrate understanding of assistive devices/modifications for ADL. 3=Patient will improve strength/tolerance for activity to enable patient to perform ADL's. OT Education/Plan Problem List/Assessment Assessment: Decreased Activ Tolerance, Decreased UE Strength Discharge Recommendations Plan/Recommendations: Continue POC Treatment Plan/Plan of Care Patient would benefit from OT for education, treatment and training to promote independence in ADL's, mobility, safety and/or upper extremity function for ADL's. Plan of Care: ADL Retraining, Caregiver Training, Concurrent Therapy, Functional Mobility, Group Exercise/Act as Ind, UE Funct Exercise/Act Treatment Duration: Jul 14, 2019 Frequency: At least 5 of 7 days/Wk (IRF) Estimated Hrs Per Day: 1.5 hours per day Agreement: Yes Rehab Potential: Fair Time/GCodes Start Time: 13:00 Stop Time: 13:30 Total Time Billed (hr/min): 30 Billed Treatment Time 1 visit-FA 1 (15 min) EX 1 (15 min) ERNESTO DANGELO Jul 12, 2019 13:42
--- NOTE | 2019-07-12 15:26 | Physical Therapy Daily Note ---
PT Daily Note-Current Subjective Pt sitting in recliner upon arrival. Family arrives shortly after. Pt agrees to PT and reports feeling "pretty good about D/C tomorrow (07/13). Pain Numeric Pain Scale: 4 Location Body Site: Abdomen Pain Description: Ache, Tightness Mental Status Patient Orientation: Person, Place, Time, Situation Attachments: IV Transfers SCALE: Activities may be completed with or without assistive devices. 3-Yyiybjubju-sdjqivc completes the activity by him/herself with no assistance from a helper. 5-Set-up or Clean-up Assistance-helper sets up or cleans up; patient completes activity. [place] assists only prior to or following the activity. 4-Supervision or Touching Assistance-helper provides verbal cues and/or touching/steadying and/or contact guard assistance as patient completes activity. Assistance may be provided throughout the activity or intermittently. 3-Partial/Moderate Assistance-helper does LESS THAN HALF the effort. [place] lifts, holds or supports trunk or limbs, but provides less than half the effort. 2-Substantial/Maximal Assistance-helper does MORE THAN HALF the effort. [place] lifts or holds trunk or limbs and provides more than half the effort. 6-Zktfnkbhk-tnuekg does ALL the effort. Patient does none of the effort to complete the activity. Or, the assistance of 2 or more helpers is required for the patient to complete the activity. If activity was not attempted, code reason: 7-Patient Refused. 9-Not Applicable-not attempted and the patient did not perform the activity before the current illness, exacerbation or injury. 10-Not Attempted due to Environmental Limitations-(lack of equipment, weather restraints, etc.). 88-Not Attempted due to Medical Conditions or Safety Concerns. Sit to Stand (QC): 6 Weight Bearing Full Weight Bearing Full Weight Bearing Gait Training Does the Patient Walk?: Yes Gait: 6 Distance: 150' Walk 10 feet (QC): 6 Walk 50 ft with 2 Turns(QC): 6 Walk 150 ft (QC): 6 Gait Persons Needed: 1 Gait Assistive Device: None (1) Wheelchair Training Does the Pt Use a Wheelchair?: No Treatments Pt is able to transfers from recliner and ambulates in hallway. Pt returns to room as family arrives. Pt and family inquire about D/C information, talk to SW and explained that D/C will occur tomorrow (07/13) but it will depend on results from testing whether IV antibiotics or oral antibiotics can be given. If IV then HH can be set up. Pt and family report that they feel ready for pt to return home. Pt resting in recliner with all needs met, call light in hand at end of Rx. Assessment Current Status: Good Progress Pt is a little nervous but excited to return home. PT Short Term Goals Short Term Goals Time Frame: Jul 07, 2019 Gait Distance Comment: 50' Gait Assistive Device: FWW (SBA ) PT Long-Term Goals Long-Term Goals PT Central Office Trouble Shooter Goals Time Frame: Jul 21, 2019 Sit to Lying (QC): 4 (SBA) Lying-Sitting on Side/Bed(QC): 4 (SBA) Sit to Stand (QC): 4 (SBA) Roll Left to Right (QC): 4 (SBA) Chair/Gna-lg-Omihq Xfer(QC): 4 (SBA) Car Transfer (QC): 4 (SBA) Distance: 150' Walk 10 feet (QC): 4 (SBA) Walk 10ft-Uneven Surface(QC): 4 (SBA) Walk 50ft with 2 Turns (QC): 4 (SBA) Walk 150 ft (QC): 4 (SBA) Gait Assistive Device: FWW # of Steps: 4 1 Step (curb) (QC): 4 4 Steps (QC): 4 Picking up an Object (QC): 4 PT Plan Problem List Problem List: Activity Tolerance Treatment/Plan Treatment Plan: Continue Plan of Care Treatment Plan: Bed Mobility, Education, Functional Activity [place], Functional Strength, Group Therapy, Gait, Safety, Therapeutic Exercise, Transfers Treatment Duration: Jul 21, 2019 Frequency: At least 5 of 7 days/Wk (IRF) Estimated Hrs Per Day: 1.5 hours per day Patient and/or Family Agrees t: Yes Safety Risks/Education Patient Education: Correct Positioning, Safety Issues Teaching Recipient: Patient Teaching Methods: Discussion Response to Teaching: Verbalize Understanding Time/GCodes Time In: 1430 Time Out: 1500 Total Billed Treatment Time: 30 Total Billed Treatment 1, FA x2 (30m) ALF PITTS [facility] [employer] Jul 12, 2019 15:26
--- NOTE | 2019-07-12 15:43 | NUR ---
Weekly Team Conference Discussed weekly team conference with patient. Recommendation is discharge home tomorrow, 07/13/19, as long as medically stable. Currently waiting on final urine culture to determination appropriate antibiotic therapy; patient is on IV Rocephin daily at this time. Also waiting for Dr. Gregory (covering for Dr. Taylor) to evaluate OFE drains x 2 to determine if OFE drains will be discontinued prior to discharge or if patient will go home with them. Patient voices no concerns if discharged with OFE drains in place. Patient states she had OFE drains after her last abdominal surgery and was able to manage them without assistance. Discussed home health with patient and she states she does not feel that is necessary, unless she is discharged on IV antibiotics, then she would agree to home health nursing. Patient also denies need for outpatient therapies. Patient states her spouse, izzzyd-aw-rbt and three grown daughters are at home and are able to provide any assistance needed. Patient also reports her spouse and son have rearranged the bedroom and moved the lift chair into the bedroom so patient will be able to get to and from the bathroom easier. Patient also reports her spouse and son are installing a rail by the stairs to the front [facility]. Patient reports she would like to utilize [facility] in [place]. Preferred pharmacy changed in [facility]. Patient also reports her spouse received his check today and they will be able to purchase medications prescribed. Patient is agreeable to discharge on , 07/13/19. Patient reports she has already talked to her spouse and he is able to provide transportation home tomorrow. Will continue to monitor medical needs, but plan on discharge home tomorrow, 07/13/19.
--- NOTE | 2019-07-12 16:35 | Progress Note - Surgery ---
[facility] 07/12/19 1635: Subjective Date Seen by a Provider: Jul 12, 2019 Time Seen by a Provider: 16:20 Subjective/Events-last exam Patient appears healthy. States that she is having pain due to a UTI and some muscle soreness in her abdomen. Drain B is draining and has a red tinge to it and has been sqgehtpt211 ml per day. Patient states that She has had tomato soup. Drain A does not have any drainage. Review of Systems General: No Chills, No Other Pulmonary: No Dyspnea, No Cough Cardiovascular: No: Chest Pain, Palpitations, Edema Gastrointestinal: Nausea (this morning), Vomiting (this morning), Abdominal Pain (Soreness) Objective Exam Vital Signs Date Time Temp Pulse Resp B/P (MAP) Pulse Ox O2 Delivery O2 Flow Rate FiO2 07/12/19 09:00 Room Air 07/12/19 08:51 98 Room Air 07/12/19 05:06 36.7 84 18 147/85 (105) 98 Room Air 07/11/19 21:26 Room Air 07/11/19 20:20 Room Air 07/11/19 17:53 36.8 94 18 137/79 (98) 99 Room Air I & O 07/12/19 07:00 Intake Total 2360 ml Output Total 90 ml Balance 2270 ml Capillary Refill : General Appearance: No Apparent Distress, WD/WN Neck: Non Tender, Supple Respiratory: Chest Non Tender, Lungs Clear, Normal Breath Sounds, No Accessory Muscle Use, No Respiratory Distress Cardiovascular: Regular Rate, Rhythm, No Edema, No Murmur, Normal Peripheral Pulses Peripheral Pulses: 2+ Radial Pulses (R), 2+ Radial Pulses (L) Gastrointestinal: soft, tenderness (SLight tenderness to palpation. incisional, c/d/i trae drains Red tinge) Extremity: Normal Inspection, No Calf Tenderness Neurologic/Psychiatric: Alert, Oriented x3, No Motor/Sensory Deficits, Normal Mood/Affect Skin: Normal Color, Warm/Dry Lymphatic: No Adenopathy Results Lab Laboratory Tests 07/11/19 20:01: Glucometer 146H 07/12/19 04:27: Glucometer 135H 07/12/19 11:07: Glucometer 195H Microbiology 07/11/19 Urine Culture - Preliminary, Resulted Mixed Bacterial Amelie Gram Negative Addi Culture In Progress Assessment/Plan Assessment/Plan Assessment/Plan s/p grham patch for gastric pouch perforation nausea and vomiting Gastrograffin swallow test Control UTI with antibiotics Clinical Quality Measures DVT/VTE Risk/Contraindication: Risk Factor Score Per Nursin RFS Level Per Nursing on Admit: 4+=Very High TROY HERNANDEZ DO 07/12/192054: Subjective Time Seen by a Provider: 17:00 Subjective/Events-last exam Pt seen and examined, no acute distress. No complaints. Objective Exam Gastrointestinal: other (drain B has normal serosanguinous fluid in it) Assessment/Plan Assessment/Plan Assessment/Plan Continue current care, pt schedule to be d/c'd tomorrow and should follow up with Dr. Taylor on Wednesday. Supervisory-Addendum Brief Verification & Attestation Participated in pt care: history, MDM, physical Personally performed: exam, history, MDM Care discussed with: Medical Student Procedures: n/a Verification and Attestation of Medical Student E/M Service A medical student performed and documented this service in my presence. I reviewed and verified all information documented by the medical student and made modifications to such information, when appropriate. I personally performed the physical exam and medical decision making. Troy Hernandez, Jul 12, 2019,20:55 [facility] Jul 12, 2019 16:35 TROY HERNANDEZ DO Jul 12, 2019 20:55
[2019-07-12] MEDS: ENOXAPARIN 40 MG/0.4 ML (LOVENOX) SYR SC SCH (17:07)
--- NOTE | 2019-07-12 17:30 | NUR ---
DR. HERNANDEZ HERE TO SEE PATIENT AND STATES OFE DRAINAGE IS NORMAL. HE WAS INFORMED OF PLANNED DISCHARGE TOMORROW. HE STATES FOR PATIENT TO FOLLOW UP WITH DR. POWERS ON WEDNESDAY AND PROBABLE DC OF OFE DRAINS AT THAT TIME.
[2019-07-12 18:00] VITALS: BP 128/64
--- NOTE | 2019-07-12 18:00 | NUR ---
DR. TURNER NOTIFIED THAT SEPSIS SCREEN SHOWED SEPSIS RISK WHEN SUSPECTED NEW INFECTION, WBC < 4000 AND PULSE > 90. NO NEW ORDERS.
[2019-07-12] MEDS: rOPINIRole 1 MG (REQUIP) TABLET PO SCH (20:41)
[2019-07-12] MEDS: toPIRamate 25 MG (TOPAMAX) TAB PO SCH (20:41)
[2019-07-12] MEDS: SERTRALINE 100 MG (ZOLOFT) TAB PO SCH (20:41)
[2019-07-12] MEDS: ALPRAZolam 0.25 MG (XANAX) TAB PO PRN (23:36)
[2019-07-13] MEDS: HYDROcodone/APAP 5 MG/325 MG (LORTAB) TAB PO PRN ×4 (01:26→14:37)
[2019-07-13] MEDS: inSUlin ASPART (NovoLOG) 1 UNIT/0.01 ML (CHARGE PER UNIT) SC SCH ×2 (05:49→11:43)
[2019-07-13] MEDS: CATHETER FLUSH 10 ML SYR IV SCH ×2 (05:49→14:14)
[2019-07-13 06:31] VITALS: BP 149/81
[2019-07-13] MEDS ORDERED: PHEN-826 PO (08:00)
[2019-07-13] MEDS ORDERED: ACHD5005 PO (08:00)
[2019-07-13] MEDS ORDERED: PANT40TA3 PO (08:00)
[2019-07-13] MEDS ORDERED: CEFD300C3 PO (08:00)
--- NOTE | 2019-07-13 08:02 | Discharge Summary ---
Diagnosis/Chief Complaint Date of Admission Jun 30, 2019 at 11:15 Date of Discharge Discharge Date: Jul 13, 2019 Discharge Diagnosis Assessment: Severe debility s/p septic shock s/p gastric perforation s/p gastric bypass remotely Anemia Hyperglycemia Depression s/p pPost op ileus resolved s/p TPN Acute UTI placing on Rocephin empirically Plan: Monitor closely TPN DC and eating more each day PO intake to increase Continue Venofer until completed Pain control Impressive recovery Drain DC per Dr Brandon Garrido IV empirically DC home (1) Septic shock Status: Resolved Resolution Date/Time: 06/30/19 @ 14:48 (2) Gastrointestinal perforation Status: Resolved (3) Nausea and vomiting Status: Acute (4) Ileus following gastrointestinal surgery (5) On total parenteral nutrition (6) Anemia (7) Hyperglycemia (8) Depressed (9) UTI (urinary tract infection) Discharge Summary Discharge Physical Examination Allergies: Coded Allergies: NSAIDS (Non-Steroidal Anti-Inflamma (Verified Adverse Reaction, Unknown, 12/15/18) UNABLE TO TAKE DUE TO GASTRIC SURG Vitals & I&Os Vital Signs Date Time Temp Pulse Resp B/P (MAP) Pulse Ox O2 Delivery O2 Flow Rate FiO2 07/13/19 14:43 07/13/19 08:00 Room Air 07/13/19 07:58 98 07/13/19 06:31 37.0 92 20 General Appearance: Alert, Oriented X3, Cooperative Respiratory: Clear to Auscultation Cardiovascular: Regular Rate Neuro: Normal Gait, Normal Speech, Strength at 5/5 X4 Ext Psych/Mental Status: Mental Status NL, Mood NL Hospital Course Was the Problem List Reviewed?: Yes Hospital course: Pt had an uneventful two week hospital course, she was admitted after severe septic shock and gastric ulcer perforation repair by Dr. Taylor with drains in place. Pt did very well, participating in all therapy, had a slow recovery due to the severity of her critical illness and severe weakness but she was eventually able to advance her diet. She did have a UTI covered with Rocephin and transitioned to Cefdinir as an outpatient and I will see her in follow-up in one day at [facility] tomorrow. She will have her erica and drain removed, likely on Wednesday and will secure that appointment with Dr. Taylor. Labs (last 24 hrs) Laboratory Tests 06/30/19 18:15: Glucometer 262H 06/30/19 23:43: Glucometer 115H 07/01/19 06:31: White Blood Count 5.0, Red Blood Count 2.96L, Hemoglobin 8.1L, Hematocrit 25L, Mean Corpuscular Volume 85, Mean Corpuscular Hemoglobin 27, Mean Corpuscular Hemoglobin Concent 32, Red Cell Distribution Width 15.6H, Platelet Count 260, Mean Platelet Volume 9.4, Neutrophils (%) (Auto) 76H, Lymphocytes (%) (Auto) 14, Monocytes (%) (Auto) 8, Eosinophils (%) (Auto) 1, Basophils (%) (Auto) 0, Neutrophils # (Auto) 3.8, Lymphocytes # (Auto) 0.7L, Monocytes # (Auto) 0.4, Eosinophils # (Auto) 0.1, Basophils # (Auto) 0.0, Sodium Level 135, Potassium Level 4.5, Chloride Level 103, Carbon Dioxide Level 25, Anion Gap 7, Blood Urea Nitrogen 12, Creatinine 0.58L, Estimat Glomerular Filtration Rate > 60, BUN/Creatinine Ratio 21, Glucose Level 183H, Calcium Level 7.7L, Corrected Calcium 9.3, Total Bilirubin 0.3, Aspartate Amino Transf (AST/SGOT) 15, Alanine Aminotransferase (ALT/SGPT) 11, Alkaline Phosphatase 95, Total Protein 4.8L, Albumin 2.0L 07/01/19 13:26: Glucometer 155H 07/01/19 18:41: Glucometer 200H 07/01/19 23:18: Glucometer 205H 07/02/19 05:41: Glucometer 152H 07/02/19 11:22: Glucometer 320H 07/02/19 17:09: Glucometer 172H 07/02/19 23:41: Glucometer 163H 07/03/19 04:12: White Blood Count 3.4L, Red Blood Count 2.65L, Hemoglobin 7.2L, Hematocrit 24L, Mean Corpuscular Volume 90, Mean Corpuscular Hemoglobin 27, Mean Corpuscular Hemoglobin Concent 30L, Red Cell Distribution Width 15.5H, Platelet Count 274, Mean Platelet Volume 9.4, Neutrophils (%) (Auto) 68, Lymphocytes (%) (Auto) 19, Monocytes (%) (Auto) 10, Eosinophils (%) (Auto) 3, Basophils (%) (Auto) 1, Neutrophils # (Auto) 2.3, Lymphocytes # (Auto) 0.6L, Monocytes # (Auto) 0.3, Eosinophils # (Auto) 0.1, Basophils # (Auto) 0.0 07/03/19 05:13: Sodium Level 137, Potassium Level 4.4, Chloride Level 103, Carbon Dioxide Level 25, Anion Gap 9, Blood Urea Nitrogen 13, Creatinine 0.56L, Estimat Glomerular Filtration Rate > 60, BUN/Creatinine Ratio 23, Glucose Level 162H, Calcium Level 7.5L, Corrected Calcium 9.1, Phosphorus Level 3.4, Magnesium Level 1.6, Iron Level <10L, Total Bilirubin 0.2, Aspartate Amino Transf (AST/SGOT) 19, Alanine Aminotransferase (ALT/SGPT) 14, Alkaline Phosphatase 93, Total Protein 4.8L, Albumin 2.0L 07/03/19 11:59: Glucometer 157H 07/03/19 17:53: Glucometer 192H 07/04/19 00:43: Glucometer 185H 07/04/19 05:56: Glucometer 148H 07/04/19 12:25: Glucometer 194H 07/04/19 17:55: Glucometer 155H 07/05/19 00:04: Glucometer 177H 07/05/19 05:32: Glucometer 145H 07/05/19 11:12: Glucometer 140H 07/05/19 16:41: Glucometer 151H 07/05/19 21:00: Glucometer 142H 07/06/19 06:07: Glucometer 125H 07/06/19 11:01: Glucometer 134H 07/06/19 16:26: Glucometer 141H 07/06/19 21:34: Glucometer 189H 07/07/19 05:38: Glucometer 142H 07/07/19 05:45: Creatinine 0.67 07/07/19 05:56: White Blood Count 3.9L, Red Blood Count 3.38L, Hemoglobin 9.1#L, Hematocrit 29L, Mean Corpuscular Volume 85, Mean Corpuscular Hemoglobin 27, Mean Corpuscular Hemoglobin Concent 32, Red Cell Distribution Width 15.9H, Platelet Count 539H, Mean Platelet Volume 8.8 07/07/19 11:11: Glucometer 164H 07/07/19 15:54: Glucometer 163H 07/07/19 20:01: Glucometer 174H 07/08/19 05:24: Glucometer 118H 07/08/19 11:09: Glucometer 168H 07/08/19 16:11: Glucometer 175H 07/08/19 20:24: Glucometer 168H 07/09/19 05:03: Glucometer 147H 07/09/19 11:54: Glucometer 134H 07/09/19 16:00: Glucometer 171H 07/09/19 20:31: Glucometer 165H 07/10/19 04:25: Glucometer 148H 07/10/19 06:45: White Blood Count 2.9L, Red Blood Count 3.41L, Hemoglobin 9.3L, Hematocrit 29L, Mean Corpuscular Volume 86, Mean Corpuscular Hemoglobin 27, Mean Corpuscular Hemoglobin Concent 32, Red Cell Distribution Width 16.1H, Platelet Count 456H, Mean Platelet Volume 8.7, Neutrophils (%) (Auto) 47, Lymphocytes (%) (Auto) 39, Monocytes (%) (Auto) 9, Eosinophils (%) (Auto) 5, Basophils (%) (Auto) 1, Neutrophils # (Auto) 1.3L, Lymphocytes # (Auto) 1.1, Monocytes # (Auto) 0.3, Eosinophils # (Auto) 0.1, Basophils # (Auto) 0.0, Sodium Level 139, Potassium Level 3.9, Chloride Level 110H, Carbon Dioxide Level 22, Anion Gap 7, Blood Urea Nitrogen 5L, Creatinine 0.72, Estimat Glomerular Filtration Rate > 60, BUN/Creatinine Ratio 7, Glucose Level 152H, Calcium Level 7.9L, Corrected Calcium 9.1, Total Bilirubin 0.2, Aspartate Amino Transf (AST/SGOT) 24, Alanine Aminotransferase (ALT/SGPT) 26, Alkaline Phosphatase 164H, Total Protein 5.4L, Albumin 2.5L 07/10/19 11:26: Glucometer 169H 07/10/19 16:26: Glucometer 189H 07/10/19 21:23: Glucometer 113H 07/11/19 06:19: Glucometer 136H 07/11/19 07:55: Urine Color YELLOW, Urine Clarity VERY CLOUDYH, Urine pH 6, Urine Specific [place] 1.015L, Urine Protein NEGATIVE, Urine Glucose (UA) NEGATIVE, Urine Ketones 1+H, Urine Nitrite POSITIVEH, Urine Bilirubin NEGATIVE, Urine Urobilinogen NORMAL, Urine Leukocyte Esterase 3+H, Urine RBC (Auto) NEGATIVE, Urine RBC NONE, Urine WBC >100H, Urine Squamous Epithelial Cells 0-2, Urine Crystals NONE, Urine Bacteria LARGEH, Urine Casts NONE, Urine Mucus NEGATIVE, Urine Culture Indicated YES 07/11/19 09:35: White Blood Count 3.6L, Red Blood Count 3.34L, Hemoglobin 8.9L, Hematocrit 29L, Mean Corpuscular Volume 86, Mean Corpuscular Hemoglobin 27, Mean Corpuscular Hemoglobin Concent 31L, Red Cell Distribution Width 16.8H, Platelet Count 390, Mean Platelet Volume 8.3, Neutrophils (%) (Auto) 49, Lymphocytes (%) (Auto) 38, Monocytes (%) (Auto) 10, Eosinophils (%) (Auto) 3, Basophils (%) (Auto) 0, Neutrophils # (Auto) 1.8, Lymphocytes # (Auto) 1.4, Monocytes # (Auto) 0.4, E osinophils # (Auto) 0.1, Basophils # (Auto) 0.0, Neutrophils % (Manual) 55, Lymphocytes % (Manual) 33, Monocytes % (Manual) 7, Eosinophils % (Manual) 3, Basophils % (Manual) 0, Band Neutrophils 2, Anisocytosis SLIGHT, Sodium Level 138, Potassium Level 3.7, Chloride Level 108H, Carbon Dioxide Level 21, Anion Gap 9, Blood Urea Nitrogen 7, Creatinine 0.73, Estimat Glomerular Filtration Rate > 60, BUN/Creatinine Ratio 10, Glucose Level 219H, Calcium Level 7.8L, Corrected Calcium 9.0, Total Bilirubin 0.2, Aspartate Amino Transf (AST/SGOT) 23, Alanine Aminotransferase (ALT/SGPT) 24, Alkaline Phosphatase 130, Total Protein 5.3L, Albumin 2.5L 07/11/19 11:01: Glucometer 174H 07/11/19 16:07: Glucometer 196H 07/11/19 20:01: Glucometer 146H 07/12/19 04:27: Glucometer 135H 07/12/19 11:07: Glucometer 195H 07/13/19 05:34: Glucometer 115H 07/13/19 11:10: Glucometer 193H Microbiology 07/11/19 Urine Culture - Preliminary, Resulted Escherichia coli Culture In Progress Pending Labs Microbiology Date/Time Source Procedure Growth Status 07/11/19 07:55 Urine Straight Cath, In/Out Urine Culture - Preliminary Escherichia coli Culture In Progress Resulted Laboratory Tests 06/30/19 18:15: Glucometer 262 06/30/19 23:43: Glucometer 115 07/01/19 06:31: White Blood Count 5.0, Red Blood Count 2.96, Hemoglobin 8.1, Hematocrit 25, Mean Corpuscular Volume 85, Mean Corpuscular Hemoglobin 27, Mean Corpuscular Hem oglobin Concent 32, Red Cell Distribution Width 15.6, Platelet Count 260, Mean Platelet Volume 9.4, Neutrophils (%) (Auto) 76, Lymphocytes (%) (Auto) 14, Monocytes (%) (Auto) 8, Eosinophils (%) (Auto) 1, Basophils (%) (Auto) 0, Neutrophils # (Auto) 3.8, Lymphocytes # (Auto) 0.7, Monocytes # (Auto) 0.4, Eosinophils # (Auto) 0.1, Basophils # (Auto) 0.0, Sodium Level 135, Potassium [place] 4.5, Chloride Level 103, Carbon Dioxide Level 25, Anion Gap 7, Blood Urea Nitrogen 12, Creatinine 0.58, Estimat Glomerular Filtration Rate > 60, BUN/Creatinine Ratio 21, Glucose Level 183, Calcium Level 7.7, Corrected Calcium 9.3, Total Bilirubin 0.3, Aspartate Amino Transf (AST/SGOT) 15, Alanine Aminotransferase (ALT/SGPT) 11, Alkaline Phosphatase 95, Total Protein 4.8, Albumin 2.0 07/01/19 13:26: Glucometer 155 07/01/19 18:41: Glucometer 200 07/01/19 23:18: Glucometer 205 07/02/19 05:41: Glucometer 152 07/02/19 11:22: Glucometer 320 07/02/19 17:09: Glucometer 172 07/02/19 23:41: Glucometer 163 07/03/19 04:12: White Blood Count 3.4, Red Blood Count 2.65, Hemoglobin 7.2, Hematocrit 24, Mean Corpuscular Volume 90, Mean Corpuscular Hemoglobin 27, Mean Corpuscular Hemoglobin Concent 30, Red Cell Distribution Width 15.5, Platelet Count 274, Me an Platelet Volume 9.4, Neutrophils (%) (Auto) 68, Lymphocytes (%) (Auto) 19, Monocytes (%) (Auto) 10, Eosinophils (%) (Auto) 3, Basophils (%) (Auto) 1, Neutrophils # (Auto) 2.3, Lymphocytes # (Auto) 0.6, Monocytes # (Auto) 0.3, Eosinophils # (Auto) 0.1, Basophils # (Auto) 0.0 07/03/19 05:13: Sodium Level 137, Potassium Level 4.4, Chloride Level 103, Carbon Dioxide Level 25, Anion Gap 9, Blood Urea Nitrogen 13, Creatinine 0.56, Estimat Glomerular Filtration Rate > 60, BUN/Creatinine Ratio 23, Glucose Level 162, Calcium Level 7.5, Corrected Calcium 9.1, Phosphorus Level 3.4, Magnesium Level 1.6, Iron Level <10, Total Bilirubin 0.2, Aspartate Amino Transf (AST/SGOT) 19, Alanine Aminotransferase (ALT/SGPT) 14, Alkaline Phosphatase 93, Total Protein 4.8, Albumin 2.0 07/03/19 11:59: Glucometer 157 07/03/19 17:53: Glucometer 192 07/04/19 00:43: Glucometer 185 07/04/19 05:56: Glucometer 148 07/04/19 12:25: Glucometer 194 07/04/19 17:55: Glucometer 155 07/05/19 00:04: Glucometer 177 07/05/19 05:32: Glucometer 145 07/05/19 11:12: Glucometer 140 07/05/19 16:41: Glucometer 151 07/05/19 21:00: Glucometer 142 07/06/19 06:07: Glucometer 125 07/06/19 11:01: Glucometer 134 07/06/19 16:26: Glucometer 141 07/06/19 21:34: Glucometer 189 07/07/19 05:38: Glucometer 142 07/07/19 05:45: Creatinine 0.67 07/07/19 05:56: White Blood Count 3.9, Red Blood Count 3.38, Hemoglobin 9.1, Hematocrit 29, Mean Corpuscular Volume 85, Mean Corpuscular Hemoglobin 27, Mean Corpuscular Hemoglobin Concent 32, Red Cell Distribution Width 15.9, Platelet Count 539, Mean Platelet Volume 8.8 07/07/19 11:11: Glucometer 164 07/07/19 15:54: Glucometer 163 07/07/19 20:01: Glucometer 174 07/08/19 05:24: Glucometer 118 07/08/19 11:09: Glucometer 168 07/08/19 16:11: Glucometer 175 07/08/19 20:24: Glucometer 168 07/09/19 05:03: Glucometer 147 07/09/19 11:54: Glucometer 134 07/09/19 16:00: Glucometer 171 07/09/19 20:31: Glucometer 165 07/10/19 04:25: Glucometer 148 07/10/19 06:45: White Blood Count 2.9, Red Blood Count 3.41, Hemoglobin 9.3, Hematocrit 29, Mean Corpuscular Volume 86, Mean Corpuscular Hemoglobin 27, Mean Corpuscular Hemoglobin Concent 32, Red Cell Distribution Width 16.1, Platelet Count 456, Mean Platelet Volume 8.7, Neutrophils (%) (Auto) 47, Lymphocytes (%) (Auto) 39, Monocytes (%) (Auto) 9, Eosinophils (%) (Auto) 5, Basophils (%) (Auto) 1, Neutrophils # (Auto) 1.3, Lymphocytes # (Auto) 1.1, Monocytes # (Auto) 0.3, Eosinophils # (Auto) 0.1, Basophils # (Auto) 0.0, Sodium Level 139, Potassium Level 3.9, Chloride Level 110, Carbon Dioxide Level 22, Anion Gap 7, Blood Urea Nitrogen 5, Creatinine 0.72, Estimat Glomerular Filtration Rate > 60, BUN/C reatinine Ratio 7, Glucose Level 152, Calcium Level 7.9, Corrected Calcium 9.1, Total Bilirubin 0.2, Aspartate Amino Transf (AST/SGOT) 24, Alanine Aminotransferase (ALT/SGPT) 26, Alkaline Phosphatase 164, Total Protein 5.4, Albumin 2.5 07/10/19 11:26: Glucometer 169 07/10/19 16:26: Glucometer 189 07/10/19 21:23: Glucometer 113 07/11/19 06:19: Glucometer 136 07/11/19 07:55: Urine Color YELLOW, Urine Clarity VERY CLOUDY, Urine pH 6, Urine Specific [place] 1.015, Urine Protein NEGATIVE, Urine Glucose (UA) NEGATIVE, Urine Ketones 1+, Urine Nitrite POSITIVE, Urine Bilirubin NEGATIVE, Urine Urobilinogen NORMAL, Urine Leukocyte Esterase 3+, Urine RBC (Auto) NEGATIVE, Urine RBC NONE, Urine WBC >100, Urine Squamous Epithelial Cells 0-2, Urine Crystals NONE, Urine Bacteria LARGE, Urine Casts NONE, Urine Mucus NEGATIVE, Urine Culture Indicated YES 07/11/19 09:35: White Blood Count 3.6, Red Blood Count 3.34, Hemoglobin 8.9, Hematocrit 29, Mean Corpuscular Volume 86, Mean Corpuscular Hemoglobin 27, Mean Corpuscular Hemogl obin Concent 31, Red Cell Distribution Width 16.8, Platelet Count 390, Mean Platelet Volume 8.3, Neutrophils (%) (Auto) 49, Lymphocytes (%) (Auto) 38, Monocytes (%) (Auto) 10, Eosinophils (%) (Auto) 3, Basophils (%) (Auto) 0, Neutrophils # (Auto) 1.8, Lymphocytes # (Auto) 1.4, Monocytes # (Auto) 0.4, Eosinophils # (Auto) 0.1, Basophils # (Auto) 0.0, Neutrophils % (Manual) 55, Lymphocytes % (Manual) 33, Monocytes % (Manual) 7, Eosinophils % (Manual) 3, Basophils % (Manual) 0, Band Neutrophils 2, Anisocytosis SLIGHT, Sodium Level 138, Potassium Level 3.7, Chloride Level 108, Carbon Dioxide Level 21, Anion Gap 9, Blood Urea Nitrogen 7, Creatinine 0.73, Estimat Glomerular Filtration Rate > 60, BUN/Creatinine Ratio 10, Glucose Level 219, Calcium Level 7.8, Corrected Calcium 9.0, Total Bilirubin 0.2, Aspartate Amino Transf (AST/SGOT) 23, Alanine Aminotransferase (ALT/SGPT) 24, Alkaline Phosphatase 130, Total Protein 5.3, Albumin 2.5 07/11/19 11:01: Glucometer 174 07/11/19 16:07: Glucometer 196 07/11/19 20:01: Glucometer 146 07/12/19 04:27: Glucometer 135 07/12/19 11:07: Glucometer 195 07/13/19 05:34: Glucometer 115 07/13/19 11:10: Glucometer 193 Discharge Home Medications: Active Scripts Active Cefdinir 300 Mg Capsule 300 Mg PO BID Phenazopyridine HCl 100 Mg Tablet 100 Mg PO TIDPC Pantoprazole Sodium 40 Mg Tablet.dr 40 Mg PO BID Hydrocodone/Acetaminophen 5/325mg Tablet (Acetaminophen/Hydrocodone Bitart) 1 Tab Tab 1 Tab PO Q4H PRN Reported Tylenol Extra Strength (Acetaminophen) 500 Mg Tablet 500-1,000 Mg PO Q4H PRN Ondansetron HCl 4 Mg Tablet 4 Mg PO TID PRN Lyrica (Pregabalin) 150 Mg Capsule 150 Mg PO BID Sertraline HCl 100 Mg Tablet 100 Mg PO HS Ropinirole HCl 0.5 Mg Tablet 1 Mg PO HS LAST FILLED #56 05-08-19 TAKES 2 (0.5MG) TABLETS Topiramate 25 Mg Tablet 50 Mg PO HS TAKES 2 (25MG) TALBETS Instructions to patient/family Please see electronic discharge instructions given to patient. Diagnosis/Problems Diagnosis/Problems (1) Septic shock Status: Resolved Resolution Date/Time: 06/30/19 @ 14:48 (2) Gastrointestinal perforation Status: Resolved (3) Nausea and vomiting Status: Acute (4) Ileus following gastrointestinal surgery (5) On total parenteral nutrition (6) Anemia (7) Hyperglycemia (8) Depressed (9) UTI (urinary tract infection) Clinical Quality Measures DVT/VTE Risk/Contraindication: Risk Factor Score Per Nursin RFS Level Per Nursing on Admit: 4+=Very High DIONICIO TURNER DO Jul 13, 2019 08:02
--- NOTE | 2019-07-13 08:02 | D/C HH Face to Face Order ---
D/C Face to Face Orders Reconcile Patient Problems Problems Reviewed?: Yes Instructions for Patient Via [facility], Patient Instructions/FollowUp: Dr Mcgee in 1 week Physician to follow Patient: Dr Mcgee Discharge Diet for Home: No Restrictions Patient Problems: s/p septic shock and perforated gastric ulcer Goals for Patient: Return to independent living Patient Data-Allergies,Ht & Wt Patient Allergies: Coded Allergies: NSAIDS (Non-Steroidal Anti-Inflamma (Verified Adverse Reaction, Unknown, 12/15/18) UNABLE TO TAKE DUE TO GASTRIC SURG Height (Feet): 5 Height (Inches): 5.00 Weight (Pounds): 200 Weight (Ounces): 0.0 Home Health Need/Face to Face Date of Face to Face: Jul 13, 2019 Clinical Findings: Generalized weakness and fatigue, Muscle weakness, Unsteady gait I have seen Pt [id number]: Yes Discharged To: Home Diagnosis/Conditions: s/p septic shock and perforated gastric ulcer Patient is Homebound due to: Suki fall risk due to instabilty, Muscle weakness, Pain w/ambulation Homebound Status Due to the above stated illness, injury or surgical procedure (medical condition or diagnosis) and associated clinical findings, the patient is homebound because of his/her inability to leave home except with aid of a supportive device and/or person AND leaving the home requires a considerable and taxing effort or is medically contraindicated. Pt req the following assistanc: Walker Home Health Nursing Orders Home Health Services Order: Nursing Services (manage OFE drain), Cardiovascular Tech-Evaluate & Treat, Physical Therapy-Evaluate & Treat Home Health Infusion Therapy Line Start Date: Jun 30, 2019 Certify Stmt I certify that this patient is under my care and that I, a nurse practitioner or a physician; a switchboard operator assistant working with me, had a face to face encounter that -rubia ts the physician face to face encounter requirements with this patient as dated. DIONICIO MCGEE DO Jul 13, 2019 08:02
--- NOTE | 2019-07-13 08:13 | Therapy Team Discharge Summary ---
Therapy Discharge Summary Discharge Recommendations Date of Discharge Physical Therapy Patient came to rehab with laparoscopy/gastrointestinal perforation. Upon evaluation patient performs bed mobility with max assist, supine <-> sit max assist, sit <-> stand SBA, transfers SBA. Patient has been performing bed mob ility and transfer training, balance and endurance training, functional strengthening, stair training, gait training, and education. Patient has made good progress and has met all of her senior living goals. Now, patient performs bed mobility with independence, supine <-> sit with independence, sit <-> stand with independence, transfers with independence, car transfer with independence, ambulates 750' with a rolling walker with independence (including 50' with at least 2 turns of 90 degrees and 10' over an uneven surface), can go up and down 12 steps using 1 handrail with independence, and can mixing picker tender an object from the floor with independence. Patient is discharging from this facility today and will be discharged from PT at this time. Occupational Therapy Decreased Activ Tolerance, Decreased UE Strength PT Detention Goals Sausage Smoker Goals PT Detention Goals Time Frame: Jul 21, 2019 Roll Left to Right (QC): 4 (SBA) Sit to Lying (QC): 4 (SBA) Lying-Sitting on Side/Bed(QC): 4 (SBA) Sit to Stand (QC): 4 (SBA) Chair/Cmg-hc-Odczi Xfer(QC): 4 (SBA) Car Transfer (QC): 4 (SBA) Distance: 150' Walk 10 feet (QC): 4 (SBA) Walk 10ft-Uneven Surface(QC): 4 (SBA) Walk 50ft with 2 Turns (QC): 4 (SBA) Walk 150 ft (QC): 4 (SBA) Gait Assistive Device: FWW # of Steps: 4 1 Step (curb) (QC): 4 4 Steps (QC): 4 Picking up an Object (QC): 4 OT Detention Goals Detention Goals Eating (QC): 6 (met) Oral Hygiene (QC): 6 (met) Shower/Bathe Self (QC): 5 Upper Body Dressing (QC): 6 (met) Lower Body Dressing (QC): 6 On/Off Footwear (QC): 6 Toileting Hygiene (QC): 6 (met) Toilet/Commode Transfer (QC): 6 (met) Additional Goals: 1-Demonstrate ADL Tasks, 2-Verbalize Understanding, 3- ImproveStrength/Carmina 1=Demonstrate adherence to instructed precautions during ADL tasks. 2=Patient will verbalize/demonstrate understanding of assistive devices/modifications for ADL. 3=Patient will improve strength/tolerance for activity to enable patient to perform ADL's. SAHIL TOVAR PT Jul 13, 2019 08:13
[2019-07-13] MEDS: PHENAZOPYRIDINE 100 MG (PYRIDIUM) TABLET PO SCH ×2 (10:06→14:36)
[2019-07-13] MEDS: PANTOPRAZOLE 40 MG (PROTONIX) TAB PO SCH (10:06)
[2019-07-13] MEDS: cefTRIAXone FOR IV USE 1,000 MG in WATER (STERILE) FOR INJECTION 10 ML IV SCH (10:35)
[2019-07-13] MEDS: ONDANSETRON 4 MG (ZOFRAN) ORAL DISSOLVE TAB PO PRN (10:49)
[2019-07-13] MEDS: ALPRAZolam 0.25 MG (XANAX) TAB PO PRN (13:11)
--- NOTE | 2019-07-13 15:39 | Therapy Team Discharge Summary ---
Therapy Discharge Summary Discharge Recommendations Date of Discharge Occupational Therapy Pt admitting dx of laparoscopy and GI perforation. Upon admission to ARU, pt demonstrated increased pain, max A UB/ LB dressing, CGA during toilet transfers and standing hygiene. Pt's tx focused on pain management techniques, functional mobility, ADL activities, safety and education. Pt's pain limited pt during stay. Pt did not meet all goals, but increased IND level within each goal. Pt d/c recommendations include shower chair; post-acute OT recommended for home environment safety and adaptation. D/c ARU OT at this time. Decreased Activ Tolerance, Decreased UE Strength PT Can Reconditioner Goals Can Reconditioner Goals PT Usp Goals Time Frame: Jul 21, 2019 Roll Left to Right (QC): 4 (SBA) Sit to Lying (QC): 4 (SBA) Lying-Sitting on Side/Bed(QC): 4 (SBA) Sit to Stand (QC): 4 (SBA) Chair/Drk-cd-Dzabl Xfer(QC): 4 (SBA) Car Transfer (QC): 4 (SBA) Distance: 150' Walk 10 feet (QC): 4 (SBA) Walk 10ft-Uneven Surface(QC): 4 (SBA) Walk 50ft with 2 Turns (QC): 4 (SBA) Walk 150 ft (QC): 4 (SBA) Gait Assistive Device: FWW # of Steps: 4 1 Step (curb) (QC): 4 4 Steps (QC): 4 Picking up an Object (QC): 4 OT Usp Goals Usp Goals Eating (QC): 6 (met) Oral Hygiene (QC): 6 (met) Shower/Bathe Self (QC): 5 Upper Body Dressing (QC): 6 (met) Lower Body Dressing (QC): 6 On/Off Footwear (QC): 6 Toileting Hygiene (QC): 6 (met) Toilet/Commode Transfer (QC): 6 (met) Additional Goals: 1-Demonstrate ADL Tasks, 2-Verbalize Understanding, 3- ImproveStrength/Carmina 1=Demonstrate adherence to instructed precautions during ADL tasks. 2=Patient will verbalize/demonstrate understanding of assistive devices/modifications for ADL. 3=Patient will improve strength/tolerance for activity to enable patient to perform ADL's. BRENNON HIGGINS OTR Jul 13, 2019 15:39
--- NOTE | 2019-07-13 16:26 | NUR ---
Patient discharged home today on oral antibiotic. She has a follow-up appointment with Dr. Mcgee tomorrow, 07/13/19. Patient also discharged home with OFE drains; she will follow-up with Dr. Taylor on 07/17/19.
== END 2019-07-13 14:43 | disposition home or self-care (01) | DRG 948 ==
PROVIDERS: ADMIT Internal Medicine; ATTEND Internal Medicine
DX: R53.1 Weakness (principal); R53.81 Other malaise; Z48.815 Encounter for surgical aftercare following surgery on the digestive system; I10 Essential (primary) hypertension; N39.0 Urinary tract infection, site not specified; F43.21 Adjustment disorder with depressed mood; F41.9 Anxiety disorder, unspecified; E11.65 Type 2 diabetes mellitus with hyperglycemia; D64.9 Anemia, unspecified; G47.00 Insomnia, unspecified; M79.7 Fibromyalgia; G43.909 Migraine, unspecified, not intractable, without status migrainosus; J30.2 Other seasonal allergic rhinitis; E66.9 Obesity, unspecified; K21.9 Gastro-esophageal reflux disease without esophagitis; Z68.33 Body mass index [BMI] 33.0-33.9, adult
CPT/HCPCS: 36415; 36569; 76937; 80053; 81000; 82565; 82962; 83540; 83735; 84100; 85007; 85025; 85027; 87077; 87088; 87186; 94640; 94760

== ENCOUNTER → 2019-09-05 | Outpatient (CLI) | payer BC ==
[~2019-09-05] MED LIST changes: +ACET-2267 PO; +ACHD5005 PO; +ONDA4TAB10 PO; +PANT40TA3 PO; +PEPTIVA PO; +PHEN-826 PO; +PREG150C PO; +SERT100T8 PO
--- NOTE | 2019-09-05 15:36 | Diagnostic Imaging Report ---
INDICATION: Right hip pain and right leg weakness. TIME OF EXAMINATION: 2:09 PM. TECHNIQUE: An AP view of the pelvis and two views of the right hip were obtained. FINDINGS: The femoroacetabular alignment is normal. Both femoral heads and necks appear to be intact. No fractures are seen. The rami are intact. The SI joints and symphysis are not widened. IMPRESSION: No acute bony abnormality is detected. Dictated by: Dictated on workstation # [id number]
== END ==
LOC: RAD 13:54
PROVIDERS: ATTEND Internal Medicine
DX: M25.551 Pain in right hip (principal); M62.81 Muscle weakness (generalized); R10.2 Pelvic and perineal pain

== ENCOUNTER 2019-09-26 05:47 | Outpatient (CLI) | payer BC ==
[~2019-09-26] VITALS: Ht 165.1 cm; Wt 73.2 kg
[2019-09-26] MEDS ORDERED: ROPI1TAB2 PO (12:00)
[2019-09-26] MEDS ORDERED: PANT40TA3 PO (12:03)
[2019-09-26] MEDS ORDERED: ALPR0.5T PO (12:03)
[2019-09-26] MEDS ORDERED: METF-399 PO (12:03)
[2019-09-26] MEDS ORDERED: SITA100T12 PO (12:03)
[2019-09-26] MEDS ORDERED: CYCL10TA9 PO (12:09)
[2019-09-26] MEDS ORDERED: HYDR-3812 PO (12:09)
[2019-09-26] MEDS ORDERED: CYAN100092 IJ (12:09)
== END 2019-09-26 12:10 | disposition home or self-care (01) ==
LOC: PREOP 05:47
PROVIDERS: ATTEND Surgery
DX: Z01.818 Encounter for other preprocedural examination (principal)

== ENCOUNTER → 2019-10-18 | Outpatient (CLI) | payer BC ==
[~2019-10-18] MED LIST changes: +ALPR0.5T PO; +CYAN100092 IJ; -GLIM4TAB; +GLIM4TAB3; +HYDR-3812 PO; +OMEP40CA27 PO; -OMEP40CA36 PO; +ROPI1TAB2 PO; +SUCR1TAB36 PO
[2019-10-18 08:33] LABS: BASOPHILS % (AUTO) 0 % (0-10); EOSINOPHILS # (AUTO) 0.1 10^3/uL (0.0-0.3); EOSINOPHILS % (AUTO) 2 % (0-10); HEMATOCRIT 38 % (35-52); HEMOGLOBIN 12.9 G/DL (11.5-16.0); LYMPHOCYTES # (AUTO) 1.5 X 10^3 (1.0-4.0); LYMPHOCYTES % (AUTO) 40 % (12-44); MEAN CORPUSCULAR HEMOGLOBIN 29 PG (25-34); MEAN CORPUSCULAR HGB CONC 34 G/DL (32-36); MEAN CORPUSCULAR VOLUME 86 FL (80-99); MEAN PLATELET VOLUME 8.1 FL (7.4-10.4); MONOCYTES # (AUTO) 0.4 X 10^3 (0.0-1.0); MONOCYTES % (AUTO) 12 % (0-12); NEUTROPHILS # (AUTO) 1.7 X 10^3 (1.8-7.8); NEUTROPHILS % (AUTO) 47 % (42-75); PLATELET COUNT 296 10^3/uL (130-400); RED CELL DISTRIBUTION WIDTH 14.4 % (10.0-14.5); WHITE BLOOD COUNT 3.7 10^3/uL (4.3-11.0)
[2019-10-18 09:03] LABS: ALANINE AMINOTRANSFERASE 11 U/L (0-55); ALBUMIN 3.6 GM/DL (3.2-4.5); ALKALINE PHOSPHATASE 66 U/L (40-136); BILIRUBIN,TOTAL 0.5 MG/DL (0.1-1.0); BUN/CREATININE RATIO 12; CARBON DIOXIDE 27 MMOL/L (21-32); CHLORIDE 98 MMOL/L (98-107); CHOLESTEROL 184 MG/DL (< 200); CREATININE SERUM 0.81 MG/DL (0.60-1.30); GFR ESTIMATED > 60; GLUCOSE 113 MG/DL (70-105); HDL CHOLESTEROL 85 MG/DL (40-60); SODIUM 131 MMOL/L (135-145); TOTAL PROTEIN 6.7 GM/DL (6.4-8.2); TRIGLYCERIDES 94 MG/DL (<150); VLDL CHOLESTEROL 19 MG/DL (5-40)
[2019-10-18 09:24] LABS: FREE T4 (FREE THYROXINE) 0.92 NG/DL (0.70-1.48)
== END ==
LOC: LAB 08:20
PROVIDERS: ATTEND Internal Medicine
DX: Z00.00 Encounter for general adult medical examination without abnormal findings (principal); E03.9 Hypothyroidism, unspecified; E78.1 Pure hyperglyceridemia; E78.00 Pure hypercholesterolemia, unspecified; R73.9 Hyperglycemia, unspecified
CPT/HCPCS: 36415; 80053; 80061; 83036; 84439; 84443; 85025

== ENCOUNTER → 2020-04-03 | Outpatient (CLI) | payer BC ==
[~2020-04-03] MED LIST changes: -GLIM4TAB3; +GLIM4TAB5; -HYDR-3812 PO; -HYDR-3816 PO; +ONDA-105; +ONDA-105 PO; -ONDA4TAB10; -ONDA4TAB10 PO; -ROPI0.5T2; -ROPI0.5T2 PO; +ROPI0.5T4; +ROPI0.5T4 PO; +ROPI1TAB PO; -ROPI1TAB2 PO
[2020-04-03 10:55] LABS: ALANINE AMINOTRANSFERASE 15 U/L (0-55); ALBUMIN 3.9 GM/DL (3.2-4.5); ALKALINE PHOSPHATASE 51 U/L (40-136); BILIRUBIN,TOTAL 0.4 MG/DL (0.1-1.0); BUN/CREATININE RATIO 8; CARBON DIOXIDE 23 MMOL/L (21-32); CHLORIDE 106 MMOL/L (98-107); CHOLESTEROL 186 MG/DL (< 200); CREATININE SERUM 0.83 MG/DL (0.60-1.30); GFR ESTIMATED > 60; GLUCOSE 122 MG/DL (70-105); POTASSIUM 4.2 MMOL/L (3.6-5.0); SODIUM 140 MMOL/L (135-145); TOTAL PROTEIN 6.8 GM/DL (6.4-8.2); TRIGLYCERIDES 112 MG/DL (<150)
== END ==
LOC: LAB 10:14
PROVIDERS: ATTEND Internal Medicine
DX: Z00.00 Encounter for general adult medical examination without abnormal findings (principal); E78.2 Mixed hyperlipidemia; E11.65 Type 2 diabetes mellitus with hyperglycemia; E03.9 Hypothyroidism, unspecified; I10 Essential (primary) hypertension
CPT/HCPCS: 36415; 80053; 82465; 83036; 84436; 84443; 84478

== ENCOUNTER → 2020-04-19 | Outpatient (CLI) | payer BC, OTHER ==
--- NOTE | 2020-04-22 09:42 | Diagnostic Imaging Report ---
INDICATION: Routine screening. COMPARISON: 08/05/2018 and 02/12/2017. TECHNIQUE: 2D and 3D bilateral screening mammography was performed with CAD. FINDINGS: Both breasts are heterogeneously dense, limiting the sensitivity of mammography. No dominant mass or malignant appearing microcalcifications are seen. The axillae are unremarkable. IMPRESSION: No mammographic features suspicious for malignancy are identified. ACR BI-RADS Category 1: Negative. Result letter will be mailed to the patient. Note: At least 10% of breast cancer is not imaged by mammography. Dictated by: Dictated on workstation # [id number]
== END ==
LOC: RAD 12:46
PROVIDERS: ATTEND Internal Medicine
DX: Z12.31 Encounter for screening mammogram for malignant neoplasm of breast (principal)
CPT/HCPCS: 77063; 77067

== ENCOUNTER → 2020-10-09 | Outpatient (CLI) | payer OTHER ==
[~2020-10-09] MED LIST changes: -PANT40TA3 PO; +PANT40TA52 PO
[2020-10-09 08:58] LABS: BASOPHILS % (AUTO) 0 % (0-10); EOSINOPHILS % (AUTO) 1 % (0-10); HEMATOCRIT 39 % (35-52); HEMOGLOBIN 12.6 g/dL (11.5-16.0); LYMPHOCYTES # (AUTO) 1.2 10^3/uL (1.0-4.0); LYMPHOCYTES % (AUTO) 45 % (12-44); MEAN CORPUSCULAR HEMOGLOBIN 31 pg (25-34); MEAN CORPUSCULAR HGB CONC 33 g/dL (32-36); MEAN CORPUSCULAR VOLUME 94 fL (80-99); MEAN PLATELET VOLUME 8.8 fL (9.0-12.2); MONOCYTES # (AUTO) 0.2 10^3/uL (0.0-1.0); MONOCYTES % (AUTO) 7 % (0-12); NEUTROPHILS # (AUTO) 1.3 10^3/uL (1.8-7.8); NEUTROPHILS % (AUTO) 47 % (42-75); PLATELET COUNT 258 10^3/uL (130-400); WHITE BLOOD COUNT 2.8 10^3/uL (4.3-11.0)
[2020-10-09 09:08] LABS: ALBUMIN 3.9 GM/DL (3.2-4.5); CHLORIDE 105 MMOL/L (98-107); POTASSIUM 4.1 MMOL/L (3.6-5.0); SODIUM 138 MMOL/L (135-145)
[2020-10-09 09:09] LABS: CALCIUM 8.9 MG/DL (8.5-10.1)
[2020-10-09 09:10] LABS: TRIGLYCERIDES 82 MG/DL (<150); VLDL CHOLESTEROL 16 MG/DL (5-40)
[2020-10-09 09:11] LABS: CARBON DIOXIDE 24 MMOL/L (21-32); GLUCOSE 117 MG/DL (70-105)
[2020-10-09 09:12] LABS: BILIRUBIN,TOTAL 0.4 MG/DL (0.1-1.0)
[2020-10-09 09:14] LABS: ALKALINE PHOSPHATASE 57 U/L (40-136); CREATININE SERUM 0.79 MG/DL (0.60-1.30); GFR ESTIMATED > 60
[2020-10-09 09:15] LABS: BUN/CREATININE RATIO 10; CHOLESTEROL 216 MG/DL (< 200)
[2020-10-09 09:16] LABS: HDL CHOLESTEROL 114 MG/DL (40-60)
[2020-10-09 09:17] LABS: ALANINE AMINOTRANSFERASE 16 U/L (0-55)
== END ==
LOC: LAB 08:22
PROVIDERS: ATTEND Internal Medicine
DX: Z13.6 Encounter for screening for cardiovascular disorders (principal); E11.65 Type 2 diabetes mellitus with hyperglycemia; E03.9 Hypothyroidism, unspecified; D64.9 Anemia, unspecified; I10 Essential (primary) hypertension
CPT/HCPCS: 36415; 80053; 80061; 82607; 82728; 82746; 83036; 83540; 84439; 84443; 85025

== ENCOUNTER 2020-11-17 10:54 | Emergency (ER) | payer SELFPAY ==
[~2020-11-17] VITALS: Ht 165 cm; Wt 71.6 kg
[~2020-11-17 10:54] MED LIST changes: -LISI10TA2; +LISI10TA25; +SERT-414 PO; -SERT100T8 PO
[2020-11-17] MEDS ORDERED: fentaNYL INJECTION 100 MCG/2 ML AMP IVP ONE (11:15)
--- NOTE | 2020-11-17 11:18 | ED Lower Extremity ---
General Chief Complaint: Lower Extremity Stated Complaint: FALL/R KNEE INJ Source: patient, spouse Exam Limitations: no limitations History of Present Illness Date Seen by Provider: Nov 17, 2020 Time Seen by Provider: 11:05 Initial Comments Patient arrives ER by private conveyance from her place of work where she tripped over some cabling on the floor landing on her right knee. She did not strike her hands head or loss of consciousness. She is not having any nausea. She is not on blood thinners. She has no heart history. She is having 10 out of 10 pain in her right knee with difficulty flexing her right knee. No previous fractures, surgery or scopes. Followed by Dr. Turner. She typically takes [place] 5 twice daily for fibromyalgia. Allergies and Home Medications Allergies Coded Allergies: NSAIDS (Non-Steroidal Anti-Inflamma (Verified Adverse Reaction, Unknown, 12/15/18) UNABLE TO TAKE DUE TO GASTRIC SURG Home Medications Alprazolam 0.5 Mg Tablet, 0.5 MG PO HS, (Reported) Cyanocobalamin (Vitamin B-12) 1,000 Mcg/1 Ml Kit, 1,000 MCG IJ monthly, (Reported) Cyclobenzaprine HCl 10 Mg Tablet, 10 MG PO TID, (Reported) Hydrocodone Bit/Acetaminophen 1 Each Tablet, 1 TAB PO TID, (Reported) Hydrocodone/Acetaminophen 1 Each Tablet, 0.5-1 EACH PO Q4H PRN for PAIN- BREAKTHROUGH Prescribed by: MELANIE QUINONEZ on 11/17/20 1159 Metformin HCl 1,000 Mg Tablet, 1,000 MG PO BID, (Reported) Ondansetron HCl 4 Mg Tablet, 4 MG PO TID PRN for NAUSEA/VOMITING-1ST LINE, (Reported) Pantoprazole Sodium 40 Mg Tablet.dr, 40 MG PO DAILY, (Reported) Ropinirole HCl 1 Mg Tablet, 1 MG PO HS, (Reported) Sertraline HCl 100 Mg Tablet, 100 MG PO HS, (Reported) Sitagliptin Phosphate 100 Mg Tablet, 100 MG PO DAILY, (Reported) Sucralfate 1 Gm Tablet, 1 GM PO QID Prescribed by: ROBYN POWERS on 10/03/19 1042 Topiramate 25 Mg Tablet, 50 MG PO HS, (Reported) TAKES 2 (25MG) TALBETS Patient Home Medication List Home Medication List Reviewed: Yes Review of Systems Constitutional: No chills, No diaphoresis EENTM: No ear discharge, No ear pain Respiratory: No cough, No short of breath Cardiovascular: No Hx of Intervention, No palpitations Gastrointestinal: No abdominal pain, No constipation Genitourinary: No dysuria, No frequency Control/STD Prophylaxis: None Musculoskeletal: see HPI; No back pain; joint pain All Other Systems Reviewed Negative Unless Noted: Yes Past Jutcixt-Jfjivw-Swewsc Hx Patient Social History Alcohol Use: Denies Use Smoking Status: Never a Smoker 2nd Hand Smoke Exposure: No Recent Hopitalizations: No Immunizations Up To Date Tetanus Booster (TDap): Unknown PED Vaccines UTD: Yes Date of Pneumonia Vaccine: Jun 19, 2019 Date of Influenza Vaccine: Jun 19, 2019 Seasonal Allergies Seasonal Allergies: Yes Past Medical History Surgeries: Yes (D&C x5 [id number], EGD and colonoscopy, ABDOMINOPLASTY) Abdominal, Appendectomy, Gallbladder, Hysterectomy, Oophorectomy Respiratory: No Currently Using CPAP: No Currently Using BIPAP: No Cardiac: Yes Hypertension Neurological: Yes (OTC tylenol for migraines) Headaches /Migraines Reproductive Disorders: No Female Reproductive Disorders: Polycystic Ovarian Dis [employer] History: Hysterectomy Sexually Transmitted Disease: No HIV/AIDS: No Genitourinary: Yes Kidney Infection, UTI (peds) Gastrointestinal: No (gall bladder removal in ) Hemorrhoids Musculoskeletal: No Fibromyalgia Endocrine: Yes Diabetes, Non-Insulin dep HEENT: No Loss of Vision: Denies Hearing Impairment: Denies Cancer: No Psychosocial: Yes Anxiety, Depression Integumentary: No Blood Disorders: No Adverse Reaction/Blood Tranf: No Family Medical History Arthritis 19 FATHER 19 MOTHER Cataracts 19 FATHER 19 MOTHER Completed stroke Deafness or hearing loss 19 FATHER 19 MOTHER Diabetes mellitus 19 FATHER 19 MOTHER Fibrocystic disease of breast 19 MOTHER Headache disorder 19 FATHER Hypercholesterolemia 19 FATHER 19 MOTHER Hypertension 19 FATHER 19 MOTHER Respiratory disorder 19 FATHER Thyroid disease 19 MOTHER Visual disorder 19 FATHER 19 MOTHER No Pertinent Family Hx Physical Exam Vital Signs Vital Signs - First Documented 11/17/20 11:17 Temp 35.6 Pulse 89 Resp 20 B/P (MAP) 172/91 (118) Pulse Ox 100 Capillary Refill : Height, Weight, BMI Height: 5'5.00" Weight: 200lbs. 0.0oz. 90.996568nt; 26.85 BMI Method:Stated General Appearance: WD/WN, moderate distress HEENT: PERRL/EOMI, pharynx normal Neck: full range of motion, normal inspection Cardiovascular: normal peripheral pulses, regular rate, rhythm Respiratory: no respiratory distress, no accessory muscle use Hips: left hip non-tender; bilateral hip normal inspection, bilateral hip normal range of motion; left hip no evidence of injury; right hip bone tenderness (Greater trochanter) Legs: bilateral leg non-tender, bilateral leg normal inspection, bilateral leg normal range of motion, bilateral leg no evidence of injury Knees: left knee non-tender, left knee normal inspection, left knee normal range of motion, left knee no evidence of injury; right knee pain, right knee soft tissue tenderness, right knee swelling, right knee other (Lacks about 20 degrees of flexion secondary to pain. No crepitus or deformity. Mild abrasion and ecchymoses anteriorly. Mild joint effusion. We are able to do limited loading to her medial and lateral collateral ligaments and there was no laxity noted. Anterior drawer test negative for laxity. Otherwise limited knee exam secondary to pain.) Ankles: bilateral ankle non-tender, bilateral ankle normal inspection, bilateral ankle normal range of motion, bilateral ankle no evidence of injury Neurologic/Psychiatric: alert, normal mood/affect, oriented x 3 Progress/Results/Core Measures Results/Orders My Orders Orders - MELANIE QUINONEZ Fentanyl Injection (Sublimaze Injection (11/17/20 11:15) Knee, Right, 3 Views (11/17/20 11:13) Hip, Right, 2 Views (11/17/20 11:18) Hydrocodone/Apap 5/325 Tablet (Lortab 5 (11/17/20 12:15) Medications Given in ED Current Medications Medications Dose Ordered Sig/Lidya Route Start Time Stop Time Status Last Admin Dose Admin Fentanyl Citrate 100 mcg ONCE ONCE IVP 11/17/20 11:15 11/17/20 11:16 DC 11/17/20 11:24 100 MCG Vital Signs/I&O 11/17/20 11:17 Temp 35.6 Pulse 89 Resp 20 B/P (MAP) 172/91 (118) Pulse Ox 100 Progress Progress Note #1: Time: 11:19 Progress Note Pain seems to start in her knee and radiates up and down but there is no tenderness in her tib-fib. Mild tenderness to palpation of her right greater trochanter of her femur so we will get a x-ray of her hip as well as 2-3 views of her knee. Fentanyl 100 mcg IM. She uses hydrocodone 5 mg twice a day so there may be some tolerance to opiates. With her 10 out of 10 pain there is probably very little risk of somnolence. Progress Note #2: Time: 11:55 Progress Note The patient's pain has improved from a 10 out of 10 to a 7 out of 10 while at rest. We are going to put a knee immobilizer for a patellar fracture on her. Two hydrocodone 5 x 325's. Since this is a workplace injury she will follow-up with the orthopedic surgeon as directed by her Workmen's Comp. We have inst ructed her to follow-up next week. Diagnostic Imaging Diagonstic Imaging: Xray Plain Films/CT/US/NM/MRI: knee (Right) Comments NAME: ALLISON BRANNON MED REC#: [id number] PT STATUS: REG ER : 1970 PHYSICIAN: MELANIE QUINONEZ MD ADMIT DATE: 11/17/20/ER Draft Date of Exam:11/17/20 KNEE, RIGHT, 3 VIEWS Indication: Fall with right knee pain. Comparison: None. Discussion: Three views of the right knee were obtained. No effusion. Moderate degenerative disease is noted. There is an ill-defined vertical linear lucency along the lateral aspect of the patella concerning for a nondisplaced fracture. This could be further evaluated with CT as indicated. No dislocation. Soft tissues are unremarkable. Impression: 1. Vertical linear lucency along the patella which could represent a nondisplaced fracture. Dictated on workstation # [id number] Dict: 11/17/20 1146 Trans: 11/17/20 1149 [facility] [id number] Interpreted by: FRANCESCA MELTON MD Electronically signed by: Reviewed: Reviewed by Me Diagonstic Imaging: Xray Plain Films/CT/US/NM/MRI: hip (Right) Comments [facility]. [place], [place] NAME: ALLISON BRANNON MED REC#: [id number] PT STATUS: REG ER : 1970 PHYSICIAN: MELANIE QUINONEZ MD ADMIT DATE: 11/17/20/ER Draft Date of Exam:11/17/20 HIP, RIGHT, 2 VIEWS Indication: Fall with right hip pain. Comparison: 09/05/2019. Discussion: Two views of the right hip were obtained. Mild degenerative disease is stable. No fracture or dislocation. Soft tissues are unremarkable. Alignment is anatomic. Impression: 1. Stable degenerative disease within the right hip. No fracture. Dictated on workstation # [id number] Dict: 11/17/20 1145 Trans: 11/17/20 1147 [facility] [id number] Interpreted by: FRANCESCA MELTON MD Electronically signed by: Departure Impression Primary Impression: Fall from standing Qualified Codes: W19.XXXA - Unspecified fall, initial encounter Additional Impression: Patella fracture Qualified Codes: S82.001A - Unspecified fracture of right patella, initial encounter for closed fracture Disposition: HOME, SELF-CARE Condition: Improved Departure-Patient Inst. Decision time for Depature: 11:56 Referrals: DIONICIO TURNER DO (PCP/Family) Primary Care Physician QUAN BOJORQUEZ MD, MICHAEL P MD Patient Instructions: Patella Fracture (DC) Add. Discharge Instructions: Follow-up with your primary care doctor and/or orthopedic surgeon for continued pain management. 1/2 to 1 tablet of hydrocodone 10 x 325 every 4 hours as necessary to control your pain. Do not expect to be pain-free just functional for now. Follow-up next week with a orthopedic surgeon of your choice or as directed by your insurance company. Wear the knee immobilizer until instructed otherwise by an orthopedic surgeon. Compression and elevation of your knee will be helpful to decrease swelling and pain. Ice for 20 minutes every 2 hours while awake for the first 2 to 3 days to reduce pain and swelling. All discharge instructions reviewed with patient and/or family. Voiced understanding. Scripts [wheelchair] No Conflict Check EACH DAILY, #1 0 Refills Use as directed. Prov: MELANIE QUINONEZ 11/17/20 Hydrocodone/Acetaminophen (Hydrocodone-Acetamin 10-325 mg) 1 Each Tablet 0.5-1 EACH PO Q4H PRN for PAIN-BREAKTHROUGH, #25 TAB 0 Refills Prov: MELANIE QUINONEZ 11/17/20 Work/School Note: Work Release Form Date Seen in the Emergency Department: Nov 17, 2020 Return to Work: Nov 25, 2020 Restrictions: Need Release from Doctor Other Restrictions Listed Below: Knee immobilizer until released by surgeon. Nonweightbearing right leg MELANIE QUINONEZ Nov 17, 2020 11:18
--- NOTE | 2020-11-17 11:47 | Diagnostic Imaging Report ---
Indication: Fall with right hip pain. Comparison: 09/05/2019. Discussion: Two views of the right hip were obtained. Mild degenerative disease is stable. No fracture or dislocation. Soft tissues are unremarkable. Alignment is anatomic. Impression: 1. Stable degenerative disease within the right hip. No fracture. Dictated by: Dictated on workstation # [id number]
--- NOTE | 2020-11-17 11:49 | Diagnostic Imaging Report ---
Indication: Fall with right knee pain. Comparison: None. Discussion: Three views of the right knee were obtained. No effusion. Moderate degenerative disease is noted. There is an ill-defined vertical linear lucency along the lateral aspect of the patella concerning for a nondisplaced fracture. This could be further evaluated with CT as indicated. No dislocation. Soft tissues are unremarkable. Impression: 1. Vertical linear lucency along the patella which could represent a nondisplaced fracture. Dictated by: Dictated on workstation # [id number]
[2020-11-17] MEDS ORDERED: HYDR-3820 PO (11:58)
[2020-11-17] MEDS ORDERED: wheelchair (12:02)
[2020-11-17] MEDS ORDERED: HYDROcodone/APAP 5 MG/325 MG (LORTAB) TAB PO ONE (12:15)
[2020-11-17 12:19] VITALS: BP 155/89
== END 2020-11-17 12:19 | disposition home or self-care (01) ==
LOC: EDUNIT# 10:54 → ER 10:59
DX: S82.001A Unspecified fracture of right patella, initial encounter for closed fracture (principal); F32.9 Major depressive disorder, single episode, unspecified; E11.9 Type 2 diabetes mellitus without complications; F41.9 Anxiety disorder, unspecified; Z88.6 Allergy status to analgesic agent; Z82.61 Family history of arthritis; Z83.3 Family history of diabetes mellitus; Z82.49 Family history of ischemic heart disease and other diseases of the circulatory system; Z79.84 Long term (current) use of oral hypoglycemic drugs; W01.0XXA Fall on same level from slipping, tripping and stumbling without subsequent striking against object, initial encounter
CPT/HCPCS: 73502; 73562; 99283; L1830

== ENCOUNTER 2021-02-09 18:23 | Observation (INO) | payer OTHER ==
[~2021-02-09] VITALS: Ht 165 cm; Wt 85.0 kg
[~2021-02-09 18:23] MED LIST changes: +HYDR-3820 PO; -OMEP40CA27 PO; +OMEP40CA6 PO; +wheelchair
[2021-02-09] MEDS ORDERED: NS IV 1000 ML 1,000 ML IV SCH (19:00)
[2021-02-09 19:18] LABS: BASOPHILS % (AUTO) 0 % (0-10); EOSINOPHILS % (AUTO) 1 % (0-10); HEMATOCRIT 33 % (35-52); HEMOGLOBIN 11.2 g/dL (11.5-16.0); LYMPHOCYTES # (AUTO) 2.3 10^3/uL (1.0-4.0); LYMPHOCYTES % (AUTO) 35 % (12-44); MEAN CORPUSCULAR HEMOGLOBIN 31 pg (25-34); MEAN CORPUSCULAR HGB CONC 35 g/dL (32-36); MEAN CORPUSCULAR VOLUME 90 fL (80-99); MONOCYTES # (AUTO) 0.5 10^3/uL (0.0-1.0); MONOCYTES % (AUTO) 8 % (0-12); NEUTROPHILS # (AUTO) 3.6 10^3/uL (1.8-7.8); NEUTROPHILS % (AUTO) 56 % (42-75); PLATELET COUNT 276 10^3/uL (130-400); WHITE BLOOD COUNT 6.5 10^3/uL (4.3-11.0)
--- NOTE | 2021-02-09 19:26 | Diagnostic Imaging Report ---
INDICATION: Abdominal pain. COMPARISON: 06/24/2019. TECHNIQUE: 3 radiographs of the abdomen and chest dated February 09, 2021. FINDINGS: The cardiac silhouette is within normal limits in size. No significant pulmonary vascular congestion. The lungs are clear. No pleural effusion. No pneumothorax. No acute osseous abnormality within the chest. Surgical clips are present within the right upper quadrant of the abdomen. Gas and stool is noted throughout multiple loops of bowel. Postsurgical changes within the left abdomen. No dilated loops of bowel. No free air. Scattered osseous degenerative changes without acute osseous abnormality. IMPRESSION: 1. Postsurgical changes within the abdomen without evidence of bowel obstruction or free air. 2. No acute cardiopulmonary abnormality. Dictated by: Dictated on workstation # [id number]
--- NOTE | 2021-02-09 19:29 | ED Abdominal Pain ---
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 Sepsis Screen: No Definite Risk Source of Information: Patient History of Present Illness Date Seen by Provider: February 09, 2021 Time Seen by Provider: 18:50 Initial Comments PT ARRIVES VIA POV FROM HOME C/O LLQ PAIN X 1 HOUR--BEGAN AFTER SHE GOT HOME FROM WORK TONIGHT/WORKS AT [employer] IN [place] NO HEAVY LIFTING OR UNUSUAL ACTIVITY NO NAUSEA/VOMITING HAD 1 SMALL EPISODE OF DIARRHEA TODAY. NO BLACK/ BLOODY / TARRY STOOLS HAS HAD DECREASED URINE OUTPUT TODAY, BUT NO PAIN/ DISCOMFORT OR ANY OTHER URINARY SYMPTOMS NO FEVER/SWEATS/CHILLS PT WAS SEEN BY HER PCP IN [place] ON WEDNESDAY FOR LEFT FLANK PAIN, RADIATING TO LLQ AND SUPRAPUBIC AREA, AND WAS DX WITH UTI AND PLACED ON LEVAQUIN 750 MG X 5 DAYS HER FLANK PAIN HAS CONTINUED, AND HAS NOT IMPROVED TOOK TYLENOL EARLIER TODAY WITHOUT RELIEF. PT IS DIABETIC SHE HAS HAD MULTIPLE ABDOMINAL SURGERIES INCLUDING CHOLECYSTECTOMY, APPENDECTOMY, ADÁN-EN-Y GASTRIC BYPASS, ESSURE PROCEDURE, HYSTERECTOMY/BSO, ABDOMINOPLASTY PT HAD PERFORATED GASTRIC ULCER AND SEPTIC SHOCK, AND SURGERY WITH PATCH FOR PERFORATED ULCER PCP: DR. JOSE E ALCANTAR IN [place] Allergies and Home Medications Allergies Coded Allergies: NSAIDS (Non-Steroidal Anti-Inflamma (Verified Adverse Reaction, Unknown, 12/15/18) UNABLE TO TAKE DUE TO GASTRIC SURG Home Medications Alprazolam 0.5 Mg Tablet, 0.5 MG PO HS, (Reported) Last Action: Reviewed Cyanocobalamin (Vitamin B-12) 1,000 Mcg/1 Ml Kit, 1,000 MCG IJ monthly, (Reported) Last Action: Reviewed Cyclobenzaprine HCl 10 Mg Tablet, 10 MG PO TID, (Reported) Last Action: Reviewed Duloxetine HCl 30 Mg Capsule.dr, 30 MG PO BID, (Reported) Last Action: Reviewed Hydrocodone Bit/Acetaminophen 1 Each Tablet, 1 TAB PO TID, (Reported) Last Action: Reviewed Metformin HCl 1,000 Mg Tablet, 1,000 MG PO BID, (Reported) Last Action: Reviewed Ondansetron HCl 4 Mg Tablet, 4 MG PO TID PRN for NAUSEA/VOMITING-1ST LINE, (Reported) Last Action: Reviewed Pantoprazole Sodium 40 Mg Tablet.dr, 40 MG PO DAILY, (Reported) Last Action: Reviewed Ropinirole HCl 2 Mg Tablet, 2 MG PO BID Prescribed by: SAUNDRA VACA on 02/09/212224 Last Action: Converted Sertraline HCl 100 Mg Tablet, 100 MG PO HS, (Reported) Last Action: Reviewed Sucralfate 1 Gm Tablet, 1 GM PO QID Prescribed by: ROBYN POWERS on 10/03/19 1042 Last Action: Reviewed Topiramate 25 Mg Tablet, 50 MG PO BID TAKES 2 (25MG) TALBETS Prescribed by: SAUNDRA VACA on 02/09/212224 Last Action: Reviewed Patient Home Medication List Home Medication List Reviewed: Yes Review of Systems Review of Systems Constitutional: no symptoms reported Respiratory: No Symptoms Reported Cardiovascular: No Symptoms Reported Gastrointestinal: See HPI, Abdominal Pain, Diarrhea; Denies Nausea, Denies Vomiting Genitourinary: See HPI, Flank Pain Musculoskeletal: see HPI, back pain Skin: no symptoms reported Psychiatric/Neurological: No Symptoms Reported Endocrine: No Symptoms Reported Hematologic/Lymphatic: No Symptoms Reported Past Qhefxal-Amilhk-Idioqz Hx Past Med/Social Hx: Reviewed and Corrections made Patient Social History Alcohol Use: Denies Use Drug of Choice: DENIES Smoking Status: Never a Smoker 2nd Hand Smoke Exposure: No Recent Infectious Disease Expo: No Recent Hopitalizations: No Immunizations Up To Date Tetanus Booster (TDap): Unknown PED Vaccines UTD: Yes Date of Pneumonia Vaccine: Jun 19, 2019 Date of Influenza Vaccine: Jun 19, 2019 Seasonal Allergies Seasonal Allergies: Yes Past Medical History Surgeries: Yes (D&C x5 [id number], EGD and colonoscopy, ABDOMINOPLASTY) Abdominal, Appendectomy, Gallbladder, Hysterectomy, Oophorectomy, Orthopedic Respiratory: No Currently Using CPAP: No Currently Using BIPAP: No Cardiac: Yes Hypertension Neurological: Yes (OTC tylenol for migraines) Headaches /Migraines Reproductive Disorders: No Female Reproductive Disorders: Polycystic 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 Sexually Transmitted Disease: No HIV/AIDS: No Genitourinary: Yes Kidney Infection, UTI (peds) Gastrointestinal: No (gall bladder removal in ) Hemorrhoids Musculoskeletal: No Fibromyalgia Endocrine: Yes Diabetes, Non-Insulin dep HEENT: No Loss of Vision: Denies Hearing Impairment: Denies Cancer: No Psychosocial: Yes Anxiety, Depression Integumentary: No Blood Disorders: No Adverse Reaction/Blood Tranf: No Family Medical History Arthritis 19 FATHER 19 MOTHER Cataracts 19 FATHER 19 MOTHER Completed stroke Deafness or hearing loss 19 FATHER 19 MOTHER Diabetes mellitus 19 FATHER 19 MOTHER Fibrocystic disease of breast 19 MOTHER Headache disorder 19 FATHER Hypercholesterolemia 19 FATHER 19 MOTHER Hypertension 19 FATHER 19 MOTHER Respiratory disorder 19 FATHER Thyroid disease 19 MOTHER Visual disorder 19 FATHER 19 MOTHER No Pertinent Family Hx PAST SURGICAL HISTORY: -CHOLECYSTECTOMY -APPENDECTOMY -ESSURE PROCEDURE FOR STERILIZATION -HYSTERECTOMY/BSO -ADÁN-EN-Y GASTRIC BYPASS -ABDOMINOPLASTY -SURGERY FOR PERFORATED GASTRIC ULCER- -D&C X 5 -EGD'S/COLONOSCOPIES--COLONSCOPY 12/2018, EGD 10/03/19 -SURGERY FOR BONE SPUR Physical Exam Vital Signs Vital Signs - First Documented 02/09/21 18:44 Temp 36.4 Pulse 94 Resp 18 B/P (MAP) 156/101 (119) Pulse Ox 100 Capillary Refill : Less Than 3 Seconds Height/Weight/BMI Height: 5'5.00" Weight: 200lbs. 0.0oz. 90.211503rk; 27.00 BMI Method:Stated General Appearance: obese, other (LOOKS UNCOMFORTABLE, WALKING SLOWLY, BENT FORWARD HOLDING LLQ) Respiratory: normal breath sounds, no respiratory distress, no accessory muscle use Cardiovascular: regular rate, rhythm, no murmur Gastrointestinal: normal bowel sounds, soft, tenderness (TENDERNESS IN LLQ, SUPRAPUBIC AREA AND LEFT FLANK.) Extremities: normal inspection Back: CVA tenderness (L) Neurologic/Psychiatric: no motor/sensory deficits, alert, oriented x 3 Skin: normal color, warm/dry; No rash Focused Exam Lactate Level 02/09/21 19:05: Lactic Acid Level 2.39*H Lactic Acid Level Laboratory Tests Test 02/09/21 19:05 Lactic Acid Level 2.39 MMOL/L (0.50-2.00) *H Progress/Results/Core Measures Results/Orders Lab Results Laboratory Tests Test 02/09/21 19:05 02/09/21 19:30 Range/Units White Blood Count 6.5 4.3-11.0 10^3/uL Red Blood Count 3.63 L 3.80-5.11 10^6/uL Hemoglobin 11.2 L 11.5-16.0 g/dL Hematocrit 33 L 35-52 % Mean Corpuscular Volume 90 80-99 fL Mean Corpuscular Hemoglobin 31 25-34 pg Mean Corpuscular Hemoglobin Concent 35 32-36 g/dL Red Cell Distribution Width 12.3 10.0-14.5 % Platelet Count 276 130-400 10^3/uL Mean Platelet Volume 9.0 9.0-12.2 fL Immature Granulocyte % (Auto) 0 % Neutrophils (%) (Auto) 56 42-75 % Lymphocytes (%) (Auto) 35 12-44 % Monocytes (%) (Auto) 8 0-12 % Eosinophils (%) (Auto) 1 0-10 % Basophils (%) (Auto) 0 0-10 % Neutrophils # (Auto) 3.6 1.8-7.8 10^3/uL Lymphocytes # (Auto) 2.3 1.0-4.0 10^3/uL Monocytes # (Auto) 0.5 0.0-1.0 10^3/uL Eosinophils # (Auto) 0.0 0.0-0.3 10^3/uL Basophils # (Auto) 0.0 0.0-0.1 10^3/uL Immature Granulocyte # (Auto) 0.0 0.0-0.1 10^3/uL Sodium Level 122 *L 135-145 MMOL/L Potassium Level 3.8 3.6-5.0 MMOL/L Chloride Level 91 L 98-107 MMOL/L Carbon Dioxide Level 20 L 21-32 MMOL/L Anion Gap 11 5-14 MMOL/L Blood Urea Nitrogen 11 7-18 MG/DL Creatinine 0.93 0.60-1.30 MG/DL Estimat Glomerular Filtration Rate > 60 BUN/Creatinine Ratio 12 Glucose Level 134 H 70-105 MG/DL Lactic Acid Level 2.39 *H 0.50-2.00 MMOL/L Calcium Level 7.8 L 8.5-10.1 MG/DL Corrected Calcium 8.4 L 8.5-10.1 MG/DL Total Bilirubin 0.3 0.1-1.0 MG/DL Aspartate Amino Transf (AST/SGOT) 35 H 5-34 U/L Alanine Aminotransferase (ALT/SGPT) 23 0-55 U/L Alkaline Phosphatase 77 40-136 U/L Total Protein 5.9 L 6.4-8.2 GM/DL Albumin 3.2 3.2-4.5 GM/DL Amylase Level 37 25-125 U/L Lipase 15 8-78 U/L Procalcitonin 0.07 <0.10 NG/ML Urine Color YELLOW Urine Clarity CLEAR Urine pH 6.0 5-9 Urine Specific [place] <=1.005 1.016-1.022 Urine Protein NEGATIVE NEGATIVE Urine Glucose (UA) NEGATIVE NEGATIVE Urine Ketones NEGATIVE NEGATIVE Urine Nitrite NEGATIVE NEGATIVE Urine Bilirubin NEGATIVE NEGATIVE Urine Urobilinogen 0.2 < = 1.0 MG/DL Urine Leukocyte Esterase 1+ H NEGATIVE Urine RBC (Auto) NEGATIVE NEGATIVE Urine RBC NONE /HPF Urine WBC 5-10 H /HPF Urine Crystals NONE /LPF Urine Bacteria MODERATE H /HPF Urine Casts NONE /LPF Urine Mucus NEGATIVE /LPF Urine Culture Indicated YES My Orders Orders - LUNA OSORIO DO Ed Iv/Invasive Line Start (02/09/21 18:56) Amylase (02/09/21 18:56) Cbc With Automated Diff (02/09/21 18:56) Comprehensive Metabolic Panel (02/09/21 18:56) Lactic Acid Analyzer (02/09/21 18:56) Lipase (02/09/21 18:56) Procalcitonin (Pct) (02/09/21 18:56) Ua Culture If Indicated (02/09/21 18:56) Blood Culture (02/09/21 18:56) Acute Abd Series (02/09/21 18:56) Ct Abd/Pelvis Wo(Kidney Stone) (02/09/21 18:56) Ed Iv/Invasive Line Start (02/09/21 18:56) Ns Iv 1000 Ml (Sodium Chloride 0.9%) (02/09/21 19:00) Fentanyl Inj (Sublimaze Injection) (02/09/21 19:45) Urine Culture (02/09/21 19:30) Medications Given in ED Current Medications Medications Dose Ordered Sig/Lidya Route Start Time Stop Time Status Last Admin Dose Admin Fentanyl Citrate 50 mcg ONCE ONCE IVP 02/09/21 19:45 02/09/21 19:46 DC 02/09/21 19:39 50 MCG Vital Signs/I&O 02/09/21 18:44 Temp 36.4 Pulse 94 Resp 18 B/P (MAP) 156/101 (119) Pulse Ox 100 Blood Pressure Mean: 119 Progress Progress Note : Progress Note GIVEN IV FLUIDS, ZOFRAN AND FENTANYL WITH SOME IMPROVEMENT IN PAIN ON REVIEW OF PREVIOUS URINE CULTURES DONE HERE, PT HAS GROWN OUT E. COLI MULTIPLE TIMES--ALL RESISTANT TO LEVAQUIN. Diagnostic Imaging Comments ABDOMINAL XRAYS--PER RADIOLOGIST REPORT AT 1929 IMPRESSION: 1. Postsurgical changes within the abdomen without evidence of bowel obstruction or free air. 2. No acute cardiopulmonary abnormality. CT ABDOMEN/PELVIS--PER RADIOLOGIST REPORT AT 1931 IMPRESSION: CT abdomen and pelvis: 1. No identified acute abnormality in the abdomen or pelvis. Reviewed: Reviewed by Wi Departure Communication (Admissions) 1955--SPOKE WITH DR. OBANDO, HOSPITALIST, ACCEPTS PT FOR ADMIT. ORDERS NOTED Impression Primary Impression: Sepsis Additional Impressions: UTI (urinary tract infection) NIDDM Hyponatremia Failure of outpatient treatment Disposition: ADMITTED INPATIENT Condition: Improved Admissions Decision to Admit Reason: Admit from ER (General) Decision to Admit/Date: February 09, 2021 Time/Decision to Admit Time: 20:00 Departure-Patient Inst. Referrals: NO,LOCAL PHYSICIAN (PCP/Family) Primary Care Physician Scripts Ropinirole HCl (Ropinirole HCl) 2 Mg Tablet 2 MG PO BID for 30 Days, #30 Prov: IDA OBANDO MD 02/09/21 Topiramate (Topiramate) 25 Mg Tablet 50 MG PO BID for 30 Days, #30 TAB TAKES 2 (25MG) TALBETS Prov: IDA OBANDO MD 02/09/21 LUNA OSORIO DO February 09, 2021 19:29
--- NOTE | 2021-02-09 19:30 | Diagnostic Imaging Report ---
PROCEDURE: CT urinary tract, rule out kidney stone. TECHNIQUE: Multiple contiguous axial images were obtained through the abdomen and pelvis without the use of intravenous contrast. Auto Exposure Controls were utilized during the CT exam to meet ALARA standards for radiation dose reduction. DATE: February 09, 2021. COMPARISON: None. INDICATION: 51-year-old female, left flank pain. FINDINGS: There are limitations for evaluation of the abdominal organs, neoplastic processes, abscess and limited evaluation of the vasculature relating to the lack of intravenous contrast. The visualized portions of the lung bases are clear. The heart is not enlarged. There is no pericardial effusion. The liver is unremarkable in size and contour. The patient is status post cholecystectomy. There is no biliary ductal dilation. The main pancreatic duct is not abnormally dilated. Limited noncontrast evaluation of the pancreatic parenchyma is unremarkable. The adrenal glands are unremarkable. Unremarkable appearance of the renal parenchyma. There is no identified renal or ureteral stone. The urinary bladder is unremarkable. The uterus is not seen and may be surgically absent. There are postoperative changes at the level of the stomach. There are postoperative changes of the right colon. There is no free intraperitoneal air. There is no drainable fluid collection. There is no free pelvic fluid. There are atherosclerotic calcifications. There is no identified abnormally enlarged lymph node in the abdomen or pelvis meeting CT size criteria for adenopathy. There are multilevel degenerative changes of the spine. There is grade 1 anterolisthesis of L4 on L5. There is no acute bony abnormality. IMPRESSION: CT abdomen and pelvis: 1. No identified acute abnormality in the abdomen or pelvis. Dictated by: Dictated on workstation # [id number]
[2021-02-09 19:40] LABS: ALANINE AMINOTRANSFERASE 23 U/L (0-55); ALBUMIN 3.2 GM/DL (3.2-4.5); ALKALINE PHOSPHATASE 77 U/L (40-136); AMYLASE 37 U/L (25-125); BILIRUBIN,TOTAL 0.3 MG/DL (0.1-1.0); BUN/CREATININE RATIO 12; CALCIUM 7.8 MG/DL (8.5-10.1); CARBON DIOXIDE 20 MMOL/L (21-32); CHLORIDE 91 MMOL/L (98-107); CREATININE SERUM 0.93 MG/DL (0.60-1.30); GFR ESTIMATED > 60; GLUCOSE 134 MG/DL (70-105); LIPASE 15 U/L (8-78); POTASSIUM 3.8 MMOL/L (3.6-5.0); TOTAL PROTEIN 5.9 GM/DL (6.4-8.2)
[2021-02-09 19:43] LABS: SODIUM 122 MMOL/L (135-145)
[2021-02-09] MEDS ORDERED: fentaNYL INJ 100 MCG/2 ML AMP IVP ONE (19:45)
[2021-02-09 19:48] LABS: BILIRUBIN,URINE NEGATIVE (NEGATIVE); CLARITY,URINE CLEAR; COLOR,URINE YELLOW; GLUCOSE, URINE (UA) NEGATIVE (NEGATIVE); KETONES,URINE NEGATIVE (NEGATIVE); LEUKOCYTE ESTERASE ,URINE 1+ (NEGATIVE); NITRITE,URINE NEGATIVE (NEGATIVE); PROTEIN,URINE NEGATIVE (NEGATIVE)
[2021-02-09 19:59] LABS: BACTERIA,URINE MODERATE /HPF
[2021-02-09] MEDS ORDERED: CEFEPIME INJECTION 2,000 MG in WATER (STERILE) FOR INJECTION 20 ML IV ONE (20:30)
[2021-02-09] MEDS ORDERED: ONDANSETRON 4 MG/2 ML (SDV) Z0FRAN IVP PRN (22:00)
[2021-02-09] MEDS: fentaNYL INJ 100 MCG/2 ML AMP IVP PRN (22:04)
[2021-02-09] MEDS: ACETAMINOPHEN 500 MG TAB (TYLENOL) PO PRN (22:05)
[2021-02-09] MEDS: NS IV 1000 ML 1,000 ML IV SCH (22:12)
[2021-02-09] MEDS ORDERED: ROPI2TAB6 (22:21)
[2021-02-09] MEDS ORDERED: TOPI25TA10 PO (22:25)
[2021-02-09] MEDS ORDERED: ROPI2TAB6 PO (22:25)
[2021-02-09 23:23] VITALS: BP 136/71
[2021-02-09] MEDS ORDERED: DULO30CA49 PO (23:54)
[2021-02-10] MEDS ORDERED: rOPINIRole 1 MG (REQUIP) TABLET ONE (00:18)
[2021-02-10] MEDS ORDERED: DULoxetine 30 MG (CYMBALTA) CAP PO ONE (00:30)
[2021-02-10] MEDS: rOPINIRole 1 MG (REQUIP) TABLET PO SCH ×2 (00:55→08:21)
[2021-02-10] MEDS: fentaNYL INJ 100 MCG/2 ML AMP IVP PRN ×2 (02:52→05:46)
[2021-02-10] MEDS: CEFEPIME 1,000 MG/SWFI 10 ML IV PUSH IV SCH ×4 (02:55→08:20)
[2021-02-10] MEDS: NS IV 1000 ML 1,000 ML IV SCH (02:56)
[2021-02-10 03:57] VITALS: BP 126/81
[2021-02-10] MEDS: ACETAMINOPHEN 500 MG TAB (TYLENOL) PO PRN (04:44)
[2021-02-10 05:06] LABS: BASOPHILS % (AUTO) 0 % (0-10); EOSINOPHILS # (AUTO) 0.1 10^3/uL (0.0-0.3); EOSINOPHILS % (AUTO) 2 % (0-10); HEMATOCRIT 33 % (35-52); HEMOGLOBIN 10.9 g/dL (11.5-16.0); LYMPHOCYTES # (AUTO) 1.5 10^3/uL (1.0-4.0); LYMPHOCYTES % (AUTO) 39 % (12-44); MEAN CORPUSCULAR HEMOGLOBIN 30 pg (25-34); MEAN CORPUSCULAR HGB CONC 33 g/dL (32-36); MEAN CORPUSCULAR VOLUME 92 fL (80-99); MEAN PLATELET VOLUME 8.9 fL (9.0-12.2); MONOCYTES # (AUTO) 0.4 10^3/uL (0.0-1.0); MONOCYTES % (AUTO) 9 % (0-12); NEUTROPHILS % (AUTO) 50 % (42-75); PLATELET COUNT 270 10^3/uL (130-400)
[2021-02-10 05:25] LABS: ALANINE AMINOTRANSFERASE 21 U/L (0-55); ALBUMIN 3.1 GM/DL (3.2-4.5); ALKALINE PHOSPHATASE 69 U/L (40-136); BILIRUBIN,TOTAL 0.4 MG/DL (0.1-1.0); BUN/CREATININE RATIO 10; CALCIUM 7.8 MG/DL (8.5-10.1); CARBON DIOXIDE 24 MMOL/L (21-32); CHLORIDE 102 MMOL/L (98-107); GFR ESTIMATED > 60; GLUCOSE 158 MG/DL (70-105); POTASSIUM 3.5 MMOL/L (3.6-5.0); SODIUM 135 MMOL/L (135-145); TOTAL PROTEIN 5.7 GM/DL (6.4-8.2)
[2021-02-10] MEDS: inSUlin ASPART (NovoLOG) 1 UNIT/0.01 ML (CHARGE PER UNIT) SC SCH ×4 (05:39→21:03)
[2021-02-10 07:35] VITALS: BP 141/67
[2021-02-10] MEDS ORDERED: KCL 20 MEQ TAB (K-DUR) PO NR (07:45)
[2021-02-10] MEDS ORDERED: 1/2 NS IV SOLUTION 1,000 ML IV SCH (07:45)
[2021-02-10] MEDS: DULoxetine 30 MG (CYMBALTA) CAP PO SCH ×2 (08:21→21:01)
[2021-02-10 11:00] VITALS: BP 152/76
[2021-02-10] MEDS ORDERED: CNC1KV INJ (12:00)
[2021-02-10] MEDS ORDERED: SUCR1TAB PO (12:00)
[2021-02-10] MEDS ORDERED: ROPI2TAB6 PO (12:00)
[2021-02-10] MEDS ORDERED: ASCO500C17 PO (12:00)
[2021-02-10] MEDS ORDERED: ACHD5005 PO (12:00)
[2021-02-10] MEDS ORDERED: SENN-145 PO (12:00)
[2021-02-10] MEDS ORDERED: TOPI25TA10 PO (12:00)
[2021-02-10] MEDS ORDERED: CYAN50TA3 PO (12:00)
[2021-02-10] MEDS ORDERED: FAMO20TA3 PO (12:00)
[2021-02-10] MEDS ORDERED: MULT200T12 PO (12:00)
--- NOTE | 2021-02-10 13:52 | History & Physical-Hospitalist ---
History of Present Illness HPI/Chief Complaint Amada Pena is a 51-year-old female with past medical history of type 2 diabetes mellitus, anxiety, depression, restless leg syndrome, GERD, who presented with abdominal pain. She reports that she was diagnosed with a urinary tract infection at her doctor's office last week. She was started on Levaquin as and has been taking it as an outpatient. She denies dysuria. She denies fevers and chills. She reports back pain. Source: patient Exam Limitations: no limitations Date Seen 02/10/21 Time Seen by a Provider: 09:45 Attending Physician Elise Jo MD PCP No,Local Physician Referring Physician Date of Admission February 09, 2021 at 20:00 Home Medications & Allergies Home Medications Reviewed patient Home Medication Reconciliation performed by pharmacy medication reconciliations critical power install technician and/or nursing. Patients Allergies have been reviewed. Allergies Allergies Coded Allergies NSAIDS (Non-Steroidal Anti-Inflamma (Verified Adverse Reaction, Unknown, 12/15/18) UNABLE TO TAKE DUE TO GASTRIC SURG Past Medical/Social/Family Hx Patient Social History Tobacco Use?: No Smoking Status: Never a Smoker Smokeless Tobacco Frequency: Never a User Use of E-Cig and/or Vaping dev: No Substance use?: No Alcohol Use?: No Pt stated abuse/neglect: No Immunizations Up To Date Influenza Vaccine Up-to-Date: Yes; Up-to-Date Tetanus Booster (TDap): Less Than 5 Years Hepatitis A: No Hepatitis B: No TB Skin Test: None Date of Pneumonia Vaccine: Jun 19, 2019 Current Status status: No status: No Advance Directives: No Communicates: Verbally Primary Language: Armenian Preferred Spoken Language: Armenian Is interpretation needed?: No Implanted or Applied Medical D: None Past Medical History Type 2 diabetes mellitus GERD RLS Anxiety Depression Family Medical History Family Hx: PAST SURGICAL HISTORY: -CHOLECYSTECTOMY -APPENDECTOMY -ESSURE PROCEDURE FOR STERILIZATION -HYSTERECTOMY/BSO -ADÁN-EN-Y GASTRIC BYPASS -ABDOMINOPLASTY -SURGERY FOR PERFORATED GASTRIC ULCER- -D&C X 5 -EGD'S/COLONOSCOPIES--COLONSCOPY 12/2018, EGD 10/03/19 -SURGERY FOR BONE SPUR Review of Systems Constitutional: no symptoms reported EENTM: no symptoms reported Respiratory: no symptoms reported Cardiovascular: no symptoms reported Gastrointestinal: abdominal pain Musculoskeletal: back pain Skin: no symptoms reported Psychiatric/Neurological: No Symptoms Reported Physical Exam Physical Exam Vital Signs Vital Signs - First Documented 02/09/21 02/09/21 18:44 21:25 Temp 36.4 Pulse 94 Resp 18 B/P (MAP) 156/101 (119) Pulse Ox 100 O2 Delivery Room Air Capillary Refill : Less Than 3 Seconds Height, Weight, BMI Height: 5'5.00" Weight: 200lbs. 0.0oz. 90.588829yc; 31.22 BMI Method:Stated General Appearance: No Apparent Distress, Obese HEENT: PERRL/EOMI, Pharynx Normal Neck: Normal Inspection, Supple Respiratory: Lungs Clear, Normal Breath Sounds, No Respiratory Distress Cardiovascular: Regular Rate, Rhythm, No Murmur Gastrointestinal: Normal Bowel Sounds, Soft, Tenderness (Suprapubic) Extremity: Normal Inspection, Non Tender, Pedal Edema Neurologic/Psychiatric: Alert, Oriented x3, No Motor/Sensory Deficits, Normal Mood/Affect Skin: Normal Color, Warm/Dry Results Results/Procedures Labs Laboratory Tests 02/09/21 19:05 02/10/21 04:44 02/10/21 13:00 Patient resulted labs reviewed. Imaging: Reviewed Imaging Report Assessment/Plan Admission Diagnosis Urinary tract infection Admission Status: Inpatient Order (span 2 midnights) Reason for Inpatient Admission: UTI requiring antibiotics Assessment and Plan UTI Started on Levaquin outpatient Previous cultures grew fluoroquinolone resistant E coli Started on Cefepime Transition to Rocephin Await urine culture Lactic acidosis Resolved with IV fluids Hyponatremia Likely hypovolemic Na 122 on arrival Improved to 135 this morning Change to 1/2 NS to prevent rapid overcorrection Repeat Na this afternoon T2DM Hold Metformin Sliding scale insulin GERD Anxiety Depression Continue home meds Obesity Clinically significant, no acute management needs DVT prophylaxis: Lovenox Diagnosis/Problems Diagnosis/Problems (1) UTI (urinary tract infection) Status: Acute (2) Hyponatremia Status: Acute DOMINGA RUTLEDGE MD February 10, 2021 13:52
[2021-02-10] MEDS ORDERED: cefTRIAXone 2,000 MG in WATER (STERILE) FOR INJECTION 20 ML IV SCH (14:00)
[2021-02-10] MEDS ORDERED: ACETAMINOPHEN 325 MG TABLET PO PRN (14:15)
[2021-02-10] MEDS ORDERED: diphenhydrAMINE 25 MG TAB (BENADRYL) PO PRN (14:15)
[2021-02-10] MEDS ORDERED: ANTACID SUSP 30 ML UDC (MYLANTA) PO PRN (14:15)
[2021-02-10] MEDS ORDERED: ONDANSETRON 4 MG (ZOFRAN) ORAL DISSOLVE TAB PO PRN (14:15)
[2021-02-10] MEDS ORDERED: ENOXAPARIN 40 MG/0.4 ML (LOVENOX) SYR SC SCH (14:15)
[2021-02-10] MEDS ORDERED: MILK OF MAGNESIA 400 MG/5 ML 30 ML UDC PO PRN (14:15)
[2021-02-10] MEDS ORDERED: MELATONIN 3 MG TABLET PO PRN (14:15)
[2021-02-10] MEDS ORDERED: ONDANSETRON 4 MG/2 ML (SDV) Z0FRAN IV PRN (14:15)
[2021-02-10] MEDS ORDERED: polyethylene glycoL POWDER 17 GM (MIRALAX) PACK PO PRN (14:15)
[2021-02-10 16:10] VITALS: BP 112/63
[2021-02-10] MEDS: SUCRALFATE 1 GM (CARAFATE) TAB PO SCH ×2 (17:26→21:00)
[2021-02-10 19:26] VITALS: BP 149/81
[2021-02-10] MEDS ORDERED: rOPINIRole 1 MG (REQUIP) TABLET PO SCH (21:00)
[2021-02-10] MEDS ORDERED: ALPRAZolam 0.5 MG (XANAX) TAB PO SCH (21:00)
[2021-02-10] MEDS: FAMOTIDINE 20 MG (PEPCID) TABLET PO SCH (21:01)
[2021-02-10] MEDS: toPIRamate 25 MG (TOPAMAX) TAB PO SCH (21:01)
[2021-02-10] MEDS: CYCLOBENZAPRINE 10 MG (FLEXERIL) TAB PO SCH (21:01)
[2021-02-10] MEDS: SENNOSIDES 8.6 MG (SENOKOT) TAB PO SCH (21:03)
[2021-02-10] MEDS: DOCUSATE SODIUM 100 MG (COLACE) CAP PO SCH (21:03)
[2021-02-11] VITALS: BP 136/62
[2021-02-11 04:00] VITALS: BP 117/57
[2021-02-11] MEDS: inSUlin ASPART (NovoLOG) 1 UNIT/0.01 ML (CHARGE PER UNIT) SC SCH (05:27)
[2021-02-11 06:17] LABS: CHLORIDE 106 MMOL/L (98-107); POTASSIUM 3.8 MMOL/L (3.6-5.0); SODIUM 139 MMOL/L (135-145)
[2021-02-11 06:19] LABS: CALCIUM 8.2 MG/DL (8.5-10.1); GLUCOSE 113 MG/DL (70-105)
[2021-02-11 06:20] LABS: CARBON DIOXIDE 24 MMOL/L (21-32)
[2021-02-11 06:23] LABS: CREATININE SERUM 0.65 MG/DL (0.60-1.30); GFR ESTIMATED > 60
[2021-02-11 06:24] LABS: BUN/CREATININE RATIO 6
[2021-02-11] MEDS ORDERED: CEFD300C3 PO (07:18)
[2021-02-11] MEDS: SENNOSIDES 8.6 MG (SENOKOT) TAB PO SCH (07:43)
[2021-02-11] MEDS: CYCLOBENZAPRINE 10 MG (FLEXERIL) TAB PO SCH (07:43)
[2021-02-11] MEDS: toPIRamate 25 MG (TOPAMAX) TAB PO SCH (07:43)
[2021-02-11] MEDS: DULoxetine 30 MG (CYMBALTA) CAP PO SCH (07:43)
[2021-02-11] MEDS: SUCRALFATE 1 GM (CARAFATE) TAB PO SCH (07:43)
[2021-02-11] MEDS: FAMOTIDINE 20 MG (PEPCID) TABLET PO SCH (07:43)
[2021-02-11] MEDS: DOCUSATE SODIUM 100 MG (COLACE) CAP PO SCH (07:44)
[2021-02-11 08:00] VITALS: BP 123/70
[2021-02-11] MEDS ORDERED: PANTOPRAZOLE 40 MG (PROTONIX) TAB PO SCH (09:00)
[2021-02-11] MEDS ORDERED: ACHD5005 PO (09:25)
[2021-02-11] MEDS ORDERED: ALPR0.5T PO (09:25)
[2021-02-11 10:20] VITALS: BP 123/70
--- NOTE | 2021-02-11 10:53 | Physician Query Clarification ---
PQ-Conflicting Diagnosis Admission/Discharge Admission Date: February 09, 2021 at 20:00 Discharge Date: February 11, 2021 at 10:43 Dr. Concepcion, The medical record reflects the following clinical scenario: History/Risk Factors: UTI Clinical Findings: T 36.4, P 94, R 18, WBC 6.5, Lactic acid 2.39, Procalcitonin 0.07 Treatment: IV Cefepime Question: Do you agree with the impression of the sepsis per Dr. Vences ER record? Please document a response in Progress Note or Discharge Summary. 1. Yes 2. No 3. Other, with explanation of clinical findings 4. Clinically undetermined, no explanation for clinical findings. PHYSICIAN RESPONSE Do you agree w/Consulting Dx?: No Please remember a lack of response to the above will prompt a phone page by CDI/Coding staff. In responding to this query, please exercise your independent professional judgment. The purpose of this communication is to more accurately reflect the complexity of your patients condition. The fact that a question is asked does not imply that any particular answer is desired or expected. Thank you for your timely response to this clarification. Requestors name: Marly THIS PHYSICIAN QUERY FORM IS A PERMANENT PART OF THE MEDICAL RECORD MARLY AGUILERA February 11, 2021 10:53 DOMINGA CONCEPCION MD February 12, 2021 11:12
--- NOTE | 2021-02-12 12:39 | Discharge Summary ---
Discharge Summary Hospital Course Was the Problem List Reviewed?: Yes Problems/Dx: (1) UTI (urinary tract infection) Status: Acute (2) Hyponatremia Status: Acute Hospital Course Date of Admission: February 09, 2021 at 20:00 Admission Diagnosis : UTI, hyponatremia Family Physician/Provider: Damaris,Local Physician Date of Discharge: 02/11/21 Discharge Diagnosis: UTI, hyponatremia Hospital Course: Amada Pena is a 51 year old female who was admitted with UTI and hyponatremia. She had been started on Levaquin as an outpatient for UTI. Per our previous urine cultures, she has several E coli which have all been resistant to Levaquin. She was switched to Rocephin and then Omnicef at discharge. Her repeat urine culture grew mixed bacterial ramon and thus no susceptibilities were able to be determined. She was also hyponatremic on arrival and was dehydrated. Her sodium level improved with fluid resuscitation. 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 This was resumed on discharge and she should have a repeat BMP in about a week to monitor her sodium level. She should follow up with her PCP. She was discharged home in stable condition. Labs and Pending Lab Test: Microbiology 02/09/21 Blood Culture - Preliminary, Resulted No growth 02/09/21 Urine Culture - Final, Complete Mixed Bacterial Ramon Home Meds Active Hydrocodone-Acetamin 5-325 mg (Hydrocodone/Acetaminophen) 1 Each Tablet 1 Tab PO Q4H PRN 7 Days Xanax (Alprazolam) 0.5 Mg Tablet 0.5 Mg PO HS 7 Days Cefdinir 300 Mg Capsule 300 Mg PO BID 7 Days Reported Senna S Tablet (Sennosides/Docusate Sodium) 1 Each Tablet 1 Each PO DAILY PRN Vitamin C (Ascorbic Acid) 500 Mg Capsule 500 Mg PO DAILY Multivitamin Gummies (Multivit-Minerals/Folic Acid) 200 Mcg Tab.chew 200 Mcg PO DAILY Vitamin B-12 (Cyanocobalamin (Vitamin B-12)) 50 Mcg Tablet 50 Mcg PO DAILY Acid Curtain Feller Blindstitch (FAMOTIDINE) (Famotidine) 20 Mg Tablet 20 Mg PO BID Topiramate 25 Mg Tablet 25 Mg PO BID Sucralfate 1 Gm Tablet 1 Gm PO QID Ropinirole HCl 2 Mg Tablet 2 Mg PO HS Cyanocobalamin Injection (Cyanocobalamin) 1,000 Mcg/Ml Inj 1 Ml INJ MONTHLY Duloxetine HCl 30 Mg Capsule.dr 30 Mg PO BID Cyclobenzaprine HCl 10 Mg Tablet 10 Mg PO TID Pantoprazole Sodium 40 Mg Tablet.dr 40 Mg PO DAILY Metformin HCl 1,000 Mg Tablet 1,000 Mg PO BID Ondansetron HCl 4 Mg Tablet 4 Mg PO TID PRN Sertraline HCl 100 Mg Tablet 100 Mg PO HS Assessment/Pt Instructions Take medications as prescribed. Follow up with your PCP. Return with worsening symptoms. Discharge Planning: <30 minutes discharge planning Discharge Instructions Discharge Diet: No Restrictions Activity as Tolerated: Yes Discharge Physical Examination Vital Signs Vital Signs Date Time Temp Pulse Resp B/P (MAP) Pulse Ox O2 Delivery O2 Flow Rate FiO2 02/11/21 10:20 36.0 85 16 123/70 98 Room Air Allergies: Coded Allergies: NSAIDS (Non-Steroidal Anti-Inflamma (Verified Adverse Reaction, Unknown, 12/15/18) UNABLE TO TAKE DUE TO GASTRIC SURG Discharge Summary Date of Admission February 09, 2021 at 20:00 Date of Discharge February 11, 2021 at 10:43 Discharge Date: February 11, 2021 Discharge Time: 10:43 Admission Diagnosis Urinary tract infection Discharge Diagnosis UTI Hyponatremia (1) UTI (urinary tract infection) Status: Acute (2) Hyponatremia Status: Acute DOMINGA RUTLEDGE MD February 12, 2021 12:38
== END 2021-02-11 10:20 | disposition home or self-care (01) ==
LOC: EDUNIT# 18:23 → ER 18:26 → UNDOADMIN 20:00 → 4TH 20:00 → UNDODISIN 02-11 10:43
PROVIDERS: ADMIT Family Medicine; ATTEND Internal Medicine
DX: N39.0 Urinary tract infection, site not specified (principal); E87.1 Hypo-osmolality and hyponatremia; A41.9 Sepsis, unspecified organism; E11.9 Type 2 diabetes mellitus without complications; I10 Essential (primary) hypertension; G43.909 Migraine, unspecified, not intractable, without status migrainosus; E28.2 Polycystic ovarian syndrome; M79.7 Fibromyalgia; F41.9 Anxiety disorder, unspecified; F32.9 Major depressive disorder, single episode, unspecified; Z79.891 Long term (current) use of opiate analgesic; Z79.84 Long term (current) use of oral hypoglycemic drugs; Z79.899 Other long term (current) drug therapy; Z90.710 Acquired absence of both cervix and uterus; Z90.49 Acquired absence of other specified parts of digestive tract; Z82.3 Family history of stroke
CPT/HCPCS: 74022; 74176; 80048; 80053 ×2; 81000; 82150; 82947 ×2; 83605; 83690; 84145; 84295; 85025 ×2; 87040; 87088; 96361; 96374; 96375; 99284; G0378; 36415

== ENCOUNTER 2021-02-28 13:15 | Emergency (ER) | payer OTHER ==
[~2021-02-28] VITALS: Ht 165 cm; Wt 81.6 kg
[~2021-02-28 13:15] MED LIST changes: +ASCO500C17 PO; +CNC1KV INJ; +CYAN50TA3 PO; +DULO30CA49 PO; +FAMO20TA3 PO; +MULT200T12 PO; +OMEP40CA27 PO; -OMEP40CA6 PO; +ROPI2TAB6; +ROPI2TAB6 PO; +SENN-145 PO; +SUCR1TAB PO
--- NOTE | 2021-02-28 14:17 | ED GU-Female ---
General Chief Complaint: - Urinary Stated Complaint: ABNORMAL LABS / CHC PT SENT OVER / POSS SEPSIS Nursing Triage Note: PT SENT TO ED FROM [facility] FOR ABNORMAL LABS. PT WAS RECENTLY ADMITTED TO HOSPITAL FOR UTI/SEPSIS. PT REPORTS CURRENT UTI AND IS BEING TREATED WITH CEFDINIR. PT C/O PEREZ, DIZZINESS, AND BACK PAIN. Nursing Sepsis Screen: No Definite Risk Source: patient Exam Limitations: no limitations History of Present Illness Date Seen by Provider: Feb 28, 2021 Time Seen by Provider: 14:17 Initial Comments To ER with reports of abnormal labs. She was recently admitted for sepsis and urinary tract infection she is still on cefdinir. She complains of headache, dizziness x1 month, bilateral flank pain ongoing. Timing/Duration: just prior to arrival Severity/Quality: cramping Radiation: none Prior Genitourinary Problems: none Associated Symptoms: denies symptoms Allergies and Home Medications Allergies Coded Allergies: NSAIDS (Non-Steroidal Anti-Inflamma (Verified Adverse Reaction, Unknown, 12/15/18) UNABLE TO TAKE DUE TO GASTRIC SURG Home Medications Alprazolam 0.5 Mg Tablet, 0.5 MG PO HS Prescribed by: DOMINGA RUTLEDGE on 02/11/21924 Ascorbic Acid 500 Mg Capsule, 500 MG PO DAILY, (Reported) Cefdinir 300 Mg Capsule, 300 MG PO BID Prescribed by: DOMINGA RUTLEDGE on 02/11/21717 Cyanocobalamin 1,000 Mcg/Ml Inj, 1 ML INJ MONTHLY, (Reported) Cyanocobalamin (Vitamin B-12) 50 Mcg Tablet, 50 MCG PO DAILY, (Reported) Cyclobenzaprine HCl 10 Mg Tablet, 10 MG PO TID, (Reported) Duloxetine HCl 30 Mg Capsule.dr, 30 MG PO BID, (Reported) Famotidine 20 Mg Tablet, 20 MG PO BID, (Reported) Hydrocodone/Acetaminophen 1 Each Tablet, 1 TAB PO Q4H PRN for PAIN-MODERATE (5- 7) Prescribed by: DOMINGA RUTLEDGE on 02/11/21924 Metformin HCl 1,000 Mg Tablet, 1,000 MG PO BID, (Reported) Multivit-Minerals/Folic Acid 200 Mcg Tab.chew, 200 MCG PO DAILY, (Reported) Ondansetron HCl 4 Mg Tablet, 4 MG PO TID PRN for NAUSEA/VOMITING-1ST LINE, (Reported) Pantoprazole Sodium 40 Mg Tablet.dr, 40 MG PO DAILY, (Reported) Ropinirole HCl 2 Mg Tablet, 2 MG PO HS, (Reported) Sennosides/Docusate Sodium 1 Each Tablet, 1 EACH PO DAILY PRN for STOOL SOFTENER, (Reported) Sertraline HCl 100 Mg Tablet, 100 MG PO HS, (Reported) Sucralfate 1 Gm Tablet, 1 GM PO QID, (Reported) Topiramate 25 Mg Tablet, 25 MG PO BID, (Reported) Patient Home Medication List Home Medication List Reviewed: Yes Review of Systems Review of Systems Constitutional: see HPI; No chills; dizziness; No fever EENTM: see HPI Respiratory: no symptoms reported Cardiovascular: no symptoms reported Genitourinary: no symptoms reported Musculoskeletal: no symptoms reported Psychiatric/Neurological: No Symptoms Reported, Headache Endocrine: No Symptoms Reported Past Ieuzffy-Vhklfw-Bgxetc Hx Patient Social History Alcohol Use: Denies Use Drug of Choice: DENIES 2nd Hand Smoke Exposure: No Recent Infectious Disease Expo: No Recent Hopitalizations: Yes (UTI/SEPSIS) Immunizations Up To Date Tetanus Booster (TDap): Unknown PED Vaccines UTD: Yes Date of Pneumonia Vaccine: Jun 19, 2019 Date of Influenza Vaccine: Jul 19, 2021 Seasonal Allergies Seasonal Allergies: Yes Past Medical History Surgeries: Yes (D&C x5 [id number], EGD and colonoscopy, ABDOMINOPLASTY) Abdominal, Appendectomy, Gallbladder, Hysterectomy, Oophorectomy, Orthopedic Respiratory: No Currently Using CPAP: No Currently Using BIPAP: No Cardiac: Yes Hypertension Neurological: Yes (OTC tylenol for migraines) Headaches /Migraines Reproductive Disorders: No Female Reproductive Disorders: Polycystic 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 Sexually Transmitted Disease: No HIV/AIDS: No Genitourinary: Yes Kidney Infection, UTI (peds) Gastrointestinal: No (gall bladder removal in ) Hemorrhoids Musculoskeletal: No Fibromyalgia Endocrine: Yes Diabetes, Non-Insulin dep HEENT: No Loss of Vision: Denies Hearing Impairment: Denies Cancer: No Psychosocial: Yes Anxiety, Depression Integumentary: No Blood Disorders: No Adverse Reaction/Blood Tranf: No Family Medical History Arthritis 19 FATHER 19 MOTHER Cataracts 19 FATHER 19 MOTHER Completed stroke Deafness or hearing loss 19 FATHER 19 MOTHER Diabetes mellitus 19 FATHER 19 MOTHER Fibrocystic disease of breast 19 MOTHER Headache disorder 19 FATHER Hypercholesterolemia 19 FATHER 19 MOTHER Hypertension 19 FATHER 19 MOTHER Respiratory disorder 19 FATHER Thyroid disease 19 MOTHER Visual disorder 19 FATHER 19 MOTHER No Pertinent Family Hx PAST SURGICAL HISTORY: -CHOLECYSTECTOMY -APPENDECTOMY -ESSURE PROCEDURE FOR STERILIZATION -HYSTERECTOMY/BSO -ADÁN-EN-Y GASTRIC BYPASS -ABDOMINOPLASTY -SURGERY FOR PERFORATED GASTRIC ULCER- -D&C X 5 -EGD'S/COLONOSCOPIES--COLONSCOPY 12/2018, EGD 10/03/19 -SURGERY FOR BONE SPUR Physical Exam Vital Signs Vital Signs - First Documented 02/28/21 13:54 Temp 36.2 Pulse 113 Resp 20 B/P (MAP) 124/80 (95) Pulse Ox 100 O2 Delivery Room Air Capillary Refill : Less Than 3 Seconds Height, Weight, BMI Height: 5'5.00" Weight: 200lbs. 0.0oz. 90.310268ez; 29.00 BMI Method:Stated General Appearance: WD/WN, no apparent distress HEENT: PERRL/EOMI, normal ENT inspection, TMs normal Neck: non-tender, full range of motion Respiratory: normal breath sounds, no respiratory distress, no accessory muscle use Gastrointestinal: normal bowel sounds, non tender, soft Neurologic/Psychiatric: alert, normal mood/affect, oriented x 3 Skin: normal color, warm/dry Progress/Results/Core Measures Suspected Sepsis Recent Fever Within 48 Hours: No Infection Criteria Present: Suspected New Infection New/Unexplained Altered Menta: No Sepsis Screen: No Definite Risk SIRS Temperature: Pulse: 113 Respiratory Rate: 20 Laboratory Tests 02/28/21 14:20: White Blood Count 6.9 Blood Pressure 124 /80 Mean: 95 Laboratory Tests 02/28/21 14:20: Creatinine 1.39H, Platelet Count 275, Total Bilirubin 0.3 Results/Orders Lab Results Laboratory Tests Test 02/28/21 14:20 02/28/21 14:25 Range/Units White Blood Count 6.9 4.3-11.0 10^3/uL Red Blood Count 3.81 3.80-5.11 10^6/uL Hemoglobin 11.8 11.5-16.0 g/dL Hematocrit 36 35-52 % Mean Corpuscular Volume 93 80-99 fL Mean Corpuscular Hemoglobin 31 25-34 pg Mean Corpuscular Hemoglobin Concent 33 32-36 g/dL Red Cell Distribution Width 12.9 10.0-14.5 % Platelet Count 275 130-400 10^3/uL Mean Platelet Volume 8.8 L 9.0-12.2 fL Immature Granulocyte % (Auto) 0 % Neutrophils (%) (Auto) 60 42-75 % Lymphocytes (%) (Auto) 32 12-44 % Monocytes (%) (Auto) 7 0-12 % Eosinophils (%) (Auto) 0 0-10 % Basophils (%) (Auto) 0 0-10 % Neutrophils # (Auto) 4.1 1.8-7.8 10^3/uL Lymphocytes # (Auto) 2.2 1.0-4.0 10^3/uL Monocytes # (Auto) 0.5 0.0-1.0 10^3/uL Eosinophils # (Auto) 0.0 0.0-0.3 10^3/uL Basophils # (Auto) 0.0 0.0-0.1 10^3/uL Immature Granulocyte # (Auto) 0.0 0.0-0.1 10^3/uL Sodium Level 131 L 135-145 MMOL/L Potassium Level 3.1 L 3.6-5.0 MMOL/L Chloride Level 94 L 98-107 MMOL/L Carbon Dioxide Level 19 L 21-32 MMOL/L Anion Gap 18 H 5-14 MMOL/L Blood Urea Nitrogen 10 7-18 MG/DL Creatinine 1.39 H 0.60-1.30 MG/DL Estimat Glomerular Filtration Rate 40 BUN/Creatinine Ratio 7 Glucose Level 151 H 70-105 MG/DL Calcium Level 8.4 L 8.5-10.1 MG/DL Corrected Calcium 8.8 8.5-10.1 MG/DL Total Bilirubin 0.3 0.1-1.0 MG/DL Aspartate Amino Transf (AST/SGOT) 18 5-34 U/L Alanine Aminotransferase (ALT/SGPT) 16 0-55 U/L Alkaline Phosphatase 85 40-136 U/L Total Protein 6.5 6.4-8.2 GM/DL Albumin 3.5 3.2-4.5 GM/DL Urine Color YELLOW Urine Clarity CLEAR Urine pH 5.5 5-9 Urine Specific [place] 1.015 L 1.016-1.022 Urine Protein NEGATIVE NEGATIVE Urine Glucose (UA) NEGATIVE NEGATIVE Urine Ketones NEGATIVE NEGATIVE Urine Nitrite NEGATIVE NEGATIVE Urine Bilirubin NEGATIVE NEGATIVE Urine Urobilinogen 0.2 < = 1.0 MG/DL Urine Leukocyte Esterase NEGATIVE NEGATIVE Urine RBC (Auto) NEGATIVE NEGATIVE Urine RBC NONE /HPF Urine WBC 2-5 /HPF Urine Crystals PRESENT H /LPF Urine Amorphous Sediment RARE DYANA URATES H /LPF Urine Bacteria TRACE /HPF Urine Casts PRESENT /LPF Urine Hyaline Casts 5-10 H /LPF Urine Mucus NEGATIVE /LPF Urine Culture Indicated NO My Orders Orders - JEANNINE CLARKE APRN Ua Culture If Indicated (02/28/21 14:19) Cbc With Automated Diff (02/28/21 14:19) Comprehensive Metabolic Panel (02/28/21 14:19) Ed Iv/Invasive Line Start (02/28/21 14:19) Ns Iv 1000 Ml (Sodium Chloride 0.9%) (02/28/21 15:15) Potassium Chloride (Tablet) (K Dur Table (02/28/21 15:15) Meclizine Tablet (Antivert Tablet) (02/28/21 15:30) Fentanyl Inj (Sublimaze Injection) (02/28/21 15:30) Ct Head Wo (02/28/21 15:29) Medications Given in ED Current Medications Medications Dose Ordered Sig/Lidya Route Start Time Stop Time Status Last Admin Dose Admin Fentanyl Citrate 100 mcg STK-MED ONCE .ROUTE 02/28/21 15:28 02/28/21 15:30 DC 02/28/21 15:31 50 MCG Meclizine HCl 25 mg ONCE ONCE PO 02/28/21 15:30 02/28/21 15:31 DC 02/28/21 15:38 25 MG Potassium Chloride 40 meq ONCE ONCE PO 02/28/21 15:15 02/28/21 15:16 DC 02/28/21 15:22 40 MEQ Vital Signs/I&O 02/28/21 13:54 Temp 36.2 Pulse 113 Resp 20 B/P (MAP) 124/80 (95) Pulse Ox 100 O2 Delivery Room Air Capillary Refill : Less Than 3 Seconds Blood Pressure Mean: 95 Departure Impression Primary Impression: Dehydration Disposition: 01 HOME, SELF-CARE Condition: Stable Departure-Patient Inst. Decision time for Depature: 16:13 Referrals: NO,LOCAL PHYSICIAN (PCP/Family) Primary Care Physician Patient Instructions: Dehydration, Adult ED Scripts Meclizine HCl (Meclizine HCl) 25 Mg Tablet 25 MG PO TID, #21 TAB Prov: JEANNINE CLARKE APRN 02/28/21 JEANNINE CLARKE APRN Feb 28, 2021 14:17
[2021-02-28 14:31] LABS: BASOPHILS % (AUTO) 0 % (0-10); EOSINOPHILS % (AUTO) 0 % (0-10); HEMATOCRIT 36 % (35-52); HEMOGLOBIN 11.8 g/dL (11.5-16.0); LYMPHOCYTES # (AUTO) 2.2 10^3/uL (1.0-4.0); LYMPHOCYTES % (AUTO) 32 % (12-44); MEAN CORPUSCULAR HEMOGLOBIN 31 pg (25-34); MEAN CORPUSCULAR HGB CONC 33 g/dL (32-36); MEAN CORPUSCULAR VOLUME 93 fL (80-99); MEAN PLATELET VOLUME 8.8 fL (9.0-12.2); MONOCYTES # (AUTO) 0.5 10^3/uL (0.0-1.0); MONOCYTES % (AUTO) 7 % (0-12); NEUTROPHILS # (AUTO) 4.1 10^3/uL (1.8-7.8); NEUTROPHILS % (AUTO) 60 % (42-75); PLATELET COUNT 275 10^3/uL (130-400); WHITE BLOOD COUNT 6.9 10^3/uL (4.3-11.0)
[2021-02-28 14:39] LABS: COLOR,URINE YELLOW
[2021-02-28 14:40] LABS: BILIRUBIN,URINE NEGATIVE (NEGATIVE); CLARITY,URINE CLEAR; GLUCOSE, URINE (UA) NEGATIVE (NEGATIVE); KETONES,URINE NEGATIVE (NEGATIVE); LEUKOCYTE ESTERASE ,URINE NEGATIVE (NEGATIVE); NITRITE,URINE NEGATIVE (NEGATIVE); PH,URINE 5.5 (5-9); PROTEIN,URINE NEGATIVE (NEGATIVE)
[2021-02-28 14:44] LABS: ALBUMIN 3.5 GM/DL (3.2-4.5)
[2021-02-28 14:45] LABS: POTASSIUM 3.1 MMOL/L (3.6-5.0)
[2021-02-28 14:46] LABS: CALCIUM 8.4 MG/DL (8.5-10.1)
[2021-02-28 14:47] LABS: TOTAL PROTEIN 6.5 GM/DL (6.4-8.2)
[2021-02-28 14:49] LABS: BILIRUBIN,TOTAL 0.3 MG/DL (0.1-1.0)
[2021-02-28 14:51] LABS: CREATININE SERUM 1.39 MG/DL (0.60-1.30)
[2021-02-28 14:53] LABS: AMORPHOUS SEDIMENT,UR RARE AMOR URATES /LPF; BACTERIA,URINE TRACE /HPF
[2021-02-28] MEDS ORDERED: NS IV 1000 ML 1,000 ML IV SCH (15:15)
[2021-02-28] MEDS ORDERED: KCL 20 MEQ TAB (K-DUR) PO ONE (15:15)
[2021-02-28] MEDS ORDERED: fentaNYL INJ 100 MCG/2 ML AMP ONE (15:28)
[2021-02-28] MEDS ORDERED: MECLIZINE 25 MG (ANTIVERT) TAB PO ONE (15:30)
[2021-02-28] MEDS ORDERED: fentaNYL INJ 100 MCG/2 ML AMP IVP ONE (15:30)
--- NOTE | 2021-02-28 15:55 | Diagnostic Imaging Report ---
INDICATION: Headache and dizziness. Back pain. History of sepsis. TECHNIQUE: Routine non contrast-enhanced axial images were obtained from the skull base to the vertex. Auto Exposure Controls were utilized during the CT exam to meet ALARA standards for radiation dose reduction COMPARISON: 12/22/2017 FINDINGS: The ventricles and cortical sulci are normal in size and contour. There is no midline shift or mass-effect. No acute intra-axial hemorrhage is seen. There are no abnormal areas of increased or decreased density to suggest acute hemorrhage or edema. No extra-axial masses or collections are present. The bony calvarium is intact. The visualized paranasal sinuses are unremarkable. The mastoid air cells are clear. IMPRESSION: 1. No acute intracranial abnormality. No CT evidence of mass, acute infarct or intracranial hemorrhage. Dictated by: Dictated on workstation # [id number]
[2021-02-28] MEDS ORDERED: MECL-149 PO (16:14)
[2021-02-28 16:40] VITALS: BP 152/77
== END 2021-02-28 16:40 | disposition home or self-care (01) ==
LOC: EDUNIT# 13:15 → ER 13:16
DX: E86.0 Dehydration (principal); I10 Essential (primary) hypertension; F41.9 Anxiety disorder, unspecified; E11.9 Type 2 diabetes mellitus without complications; F32.9 Major depressive disorder, single episode, unspecified; Z79.84 Long term (current) use of oral hypoglycemic drugs; Z79.899 Other long term (current) drug therapy
CPT/HCPCS: 36415; 70450; 80053; 81000; 85025

== ENCOUNTER 2021-03-14 09:52 | Outpatient (RCR) | payer OTHER ==
[2021-03-07 20:20] VITALS: BP 124/81
[2021-03-07] MEDS: CEFEPIME 1,000 MG/SWFI 10 ML IV PUSH IV SCH ×2 (20:46)
[2021-03-08 08:15] VITALS: BP 135/83
[2021-03-08] MEDS: CEFEPIME 1,000 MG/SWFI 10 ML IV PUSH IV SCH ×4 (08:20→20:36)
[2021-03-08 20:36] VITALS: BP 134/69
[2021-03-09] MEDS: CEFEPIME 1,000 MG/SWFI 10 ML IV PUSH IV SCH ×4 (09:07→19:58)
[2021-03-09 09:21] VITALS: BP 146/84
[2021-03-09 19:57] VITALS: BP 149/90
[2021-03-10] MEDS: CEFEPIME 1,000 MG/SWFI 10 ML IV PUSH IV SCH ×2 (12:00)
[2021-03-10 12:09] VITALS: BP 125/73
[2021-03-11] MEDS: CEFEPIME 1,000 MG/SWFI 10 ML IV PUSH IV SCH ×4 (12:11→20:39)
[2021-03-11 12:25] VITALS: BP 117/53
[2021-03-11 21:23] VITALS: BP 124/90
[2021-03-12] MEDS: CEFEPIME 1,000 MG/SWFI 10 ML IV PUSH IV SCH ×4 (11:56→20:34)
[2021-03-12 11:57] VITALS: BP 140/81
[2021-03-12 20:35] VITALS: BP 142/87
[2021-03-13] MEDS: CEFEPIME 1,000 MG/SWFI 10 ML IV PUSH IV SCH ×4 (12:13→20:09)
[2021-03-13 12:20] VITALS: BP 126/76
[2021-03-13 20:00] VITALS: BP 118/87
[~2021-03-14] VITALS: Ht 165.1 cm; Wt 77.3 kg
[~2021-03-14 09:52] MED LIST changes: +CEFEPIME 1,000 MG/SWFI 10 ML IV PUSH IV SCH; +MECL-149 PO; -OMEP40CA27 PO; +OMEP40CA6 PO
[2021-03-14] MEDS: CEFEPIME 1,000 MG/SWFI 10 ML IV PUSH IV SCH ×2 (10:06)
[2021-03-14 10:10] VITALS: BP 145/74
== END 2021-03-14 10:10 | disposition home or self-care (01) ==
LOC: 4THo 09:52
PROVIDERS: ATTEND Nurse Practitioner Family
DX: N39.0 Urinary tract infection, site not specified (principal); B96.5 Pseudomonas (aeruginosa) (mallei) (pseudomallei) as the cause of diseases classified elsewhere
CPT/HCPCS: 96374

== ENCOUNTER → 2021-03-20 | Outpatient (CLI) | payer OTHER ==
[~2021-03-20] MED LIST changes: -CEFEPIME 1,000 MG/SWFI 10 ML IV PUSH IV SCH
--- NOTE | 2021-03-20 17:24 | Diagnostic Imaging Report ---
INDICATION: Left hip pain AP and oblique views of the left hip are obtained. No fracture or acute bony abnormality is seen. There is mild degenerative change in the left hip joint. IMPRESSION: Mild degenerative change in the left hip with no acute bony abnormality. Dictated by: Dictated on workstation # [id number]
== END ==
LOC: RAD
PROVIDERS: ATTEND Nurse Practitioner Family
DX: M16.12 Unilateral primary osteoarthritis, left hip (principal)
CPT/HCPCS: 73502

== ENCOUNTER 2021-07-01 12:56 | Emergency (ER) | payer OTHER ==
[~2021-07-01] VITALS: Ht 165 cm; Wt 79.0 kg
[2021-07-01 14:16] LABS: BILIRUBIN,URINE NEGATIVE (NEGATIVE); CLARITY,URINE CLEAR; COLOR,URINE YELLOW; GLUCOSE, URINE (UA) NEGATIVE (NEGATIVE); KETONES,URINE NEGATIVE (NEGATIVE); LEUKOCYTE ESTERASE ,URINE TRACE (NEGATIVE); NITRITE,URINE NEGATIVE (NEGATIVE); PROTEIN,URINE NEGATIVE (NEGATIVE)
[2021-07-01 14:54] LABS: BACTERIA,URINE MODERATE /HPF
[2021-07-01] MEDS ORDERED: CEFDINIR 300 MG (OMNICEF) CAP PO STA (15:08)
[2021-07-01] MEDS ORDERED: PHENAZOPYRIDINE 100 MG (PYRIDIUM) TABLET PO STA (15:08)
[2021-07-01] MEDS ORDERED: PHEN-639 PO (15:11)
[2021-07-01] MEDS ORDERED: CEFD300C3 PO (15:11)
--- NOTE | 2021-07-01 15:12 | ED GU-Female ---
General Chief Complaint: Back Problems Stated Complaint: BACK PAIN,INCONTIENCE Nursing Triage Note: PT STATES LOW/MID BACK PAIN FOR A COUPLE DAYS, ALSO INCONTINENCE WITH DISCOMFORT FOR ABOUT A WEEK, HX OF UTI'S History of Present Illness Date Seen by Provider: Jul 01, 2021 Time Seen by Provider: 14:00 Initial Comments 51-year-old female presents for back pain associated with UTI symptoms. She reports multiple UTIs in the past. No back injuries, but pain radiating to her flank bilat. Bladder spasms, with urgency and occasionally incontinence. Timing/Duration: getting worse Severity/Quality: moderate Radiation: right flank, left flank Associated Symptoms: abdominal pain, dysuria; No fever/chills; loss of bladder control, lower back pain; No nausea/vomiting; urinary frequency Allergies and Home Medications Allergies Coded Allergies: NSAIDS (Non-Steroidal Anti-Inflamma (Verified Adverse Reaction, Unknown, 12/15/18) UNABLE TO TAKE DUE TO GASTRIC SURG Patient Home Medication List Home Medication List Reviewed: Yes Alprazolam (Xanax) 0.5 Mg Tablet, 0.5 MG PO HS Prescribed by: DOMINGA RUTLEDGE on 02/11/21 0925 Ascorbic Acid (Vitamin C) 500 Mg Capsule, 500 MG PO DAILY, (Reported) Entered as Reported by: DEWEY MEDEL on 02/10/21 1200 Cefdinir (Cefdinir) 300 Mg Capsule, 300 MG PO BID Prescribed by: DOMINGA RUTLEDGE on 02/11/21 0718 Cefdinir (Cefdinir) 300 Mg Capsule, 300 MG PO BID Prescribed by: DAVID ROJO on 07/01/21 1511 Cyanocobalamin (Cyanocobalamin Injection) 1,000 Mcg/Ml Inj, 1 ML INJ MONTHLY, (Reported) Entered as Reported by: DEWEY MEDEL on 02/10/21 1200 Cyanocobalamin (Vitamin B-12) (Vitamin B-12) 50 Mcg Tablet, 50 MCG PO DAILY, (Reported) Entered as Reported by: DEWEY MEDEL on 02/10/21 1200 Cyclobenzaprine HCl (Cyclobenzaprine HCl) 10 Mg Tablet, 10 MG PO TID, (Reported) Entered as Reported by: ELSY CONCEPCION on 09/26/19 1209 Duloxetine HCl (Duloxetine HCl) 30 Mg Capsule.dr, 30 MG PO BID, (Reported) Entered as Reported by: SAUNDRA VACA on 02/09/21 2354 Famotidine (Acid Division Traffic Superintendent (FAMOTIDINE)) 20 Mg Tablet, 20 MG PO BID, (Reported) Entered as Reported by: DEWEY MEDEL on 02/10/21 1200 Hydrocodone/Acetaminophen (Hydrocodone-Acetamin 5-325 mg) 1 Each Tablet, 1 TAB PO Q4H PRN for PAIN-MODERATE (5-7) Prescribed by: DOMINGA RUTLEDGE on 02/11/21 0925 Meclizine HCl (Meclizine HCl) 25 Mg Tablet, 25 MG PO TID Prescribed by: JENANINE CLARKE on 02/28/21 1614 Metformin HCl (Metformin HCl) 1,000 Mg Tablet, 1,000 MG PO BID, (Reported) Entered as Reported by: ELSY CONCEPCION on 09/26/19 1203 Multivit-Minerals/Folic Acid (Multivitamin Gummies) 200 Mcg Tab.chew, 200 MCG PO DAILY, (Reported) Entered as Reported by: DEWEY MEDEL on 02/10/21 1200 Ondansetron HCl (Ondansetron HCl) 4 Mg Tablet, 4 MG PO TID PRN for NAUSEA/VOMITING-1ST LINE, (Reported) Entered as Reported by: FANTA MATAMOROS on 06/30/19 1134 Pantoprazole Sodium (Pantoprazole Sodium) 40 Mg Tablet.dr, 40 MG PO DAILY, (Reported) Entered as Reported by: ELSY CONCEPCION on 09/26/19 1203 Phenazopyridine HCl (Pyridium) 100 Mg Tablet, 100 MG PO Q8H PRN for SPASMS Prescribed by: DAVID ROJO on 07/01/21 1511 Ropinirole HCl (Ropinirole HCl) 2 Mg Tablet, 2 MG PO HS, (Reported) Entered as Reported by: DEWEY MEDEL on 02/10/21 1200 Sennosides/Docusate Sodium (Senna S Tablet) 1 Each Tablet, 1 EACH PO DAILY PRN for STOOL SOFTENER, (Reported) Entered as Reported by: DEWEY MEDEL on 02/10/21 1200 Sertraline HCl (Sertraline HCl) 100 Mg Tablet, 100 MG PO HS, (Reported) Entered as Reported by: FANTA MATAMOROS on 06/30/19 1134 Sucralfate (Sucralfate) 1 Gm Tablet, 1 GM PO QID, (Reported) Entered as Reported by: DEWEY MEDEL on 02/10/21 1200 Topiramate (Topiramate) 25 Mg Tablet, 25 MG PO BID, (Reported) Entered as Reported by: DEWEY MEDEL on 02/10/21 1200 Review of Systems Review of Systems Constitutional: no symptoms reported, see HPI Genitourinary: see HPI, dysuria, frequency, flank pain, incontinence, pain, urgency All Other Systemes Reviewed Negative Unless Noted: Yes Past Lddoiib-Bubvjm-Ztypnv Hx Patient Social History Tobacco Use?: No Smoking Status: Never a Smoker Use of E-Cig and/or Vaping dev: No Substance use?: No Alcohol Use?: No Immunizations Up To Date Tetanus Booster (TDap): Unknown PED Vaccines UTD: Yes Second COVID19 Vaccination Geovany: 05/21/21 COVID19 Vaccine Manager Environmental: EUDOWEBDHAVAL Seasonal Allergies Seasonal Allergies: Yes Past Medical History Surgeries: Yes (D&C x5 [id number], EGD and colonoscopy, ABDOMINOPLASTY) Abdominal, Appendectomy, Gallbladder, Hysterectomy, Oophorectomy, Orthopedic Respiratory: No Currently Using CPAP: No Currently Using BIPAP: No Cardiac: Yes Hypertension Neurological: Yes (OTC tylenol for migraines) Headaches /Migraines Reproductive Disorders: No Female Reproductive 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 Transmitted Disease: No HIV/AIDS: No Genitourinary: Yes Kidney Infection, UTI (peds) Gastrointestinal: No (gall bladder removal in ) Hemorrhoids Musculoskeletal: No Fibromyalgia Endocrine: Yes Diabetes, Non-Insulin dep HEENT: No Loss of Vision: Denies Hearing Impairment: Denies Cancer: No Psychosocial: Yes Anxiety, Depression Integumentary: No Blood Disorders: No Adverse Reaction/Blood Tranf: No Family Medical History Reviewed Nursing Family Hx Arthritis 19 FATHER 19 MOTHER Cataracts 19 FATHER 19 MOTHER Completed stroke Deafness or hearing loss 19 FATHER 19 MOTHER Diabetes mellitus 19 FATHER 19 MOTHER Fibrocystic disease of breast 19 MOTHER Headache disorder 19 FATHER Hypercholesterolemia 19 FATHER 19 MOTHER Hypertension 19 FATHER 19 MOTHER Respiratory disorder 19 FATHER Thyroid disease 19 MOTHER Visual disorder 19 FATHER 19 MOTHER No Pertinent Family Hx PAST SURGICAL HISTORY: -CHOLECYSTECTOMY -APPENDECTOMY -ESSURE PROCEDURE FOR STERILIZATION -HYSTERECTOMY/BSO -ADÁN-EN-Y GASTRIC BYPASS -ABDOMINOPLASTY -SURGERY FOR PERFORATED GASTRIC ULCER- -D&C X 5 -EGD'S/COLONOSCOPIES--COLONSCOPY 12/2018, EGD 10/03/19 -SURGERY FOR BONE SPUR Physical Exam Vital Signs Vital Signs - First Documented 07/01/21 13:47 Temp 36.1 Pulse 86 Resp 20 B/P (MAP) 160/71 (100) Pulse Ox 100 O2 Delivery Room Air Capillary Refill : Less Than 3 Seconds Height, Weight, BMI Height: 5'5.00" Weight: 200lbs. 0.0oz. 90.702225gx; 29.00 BMI Method:Stated General Appearance: WD/WN, no apparent distress Neck: non-tender, full range of motion, supple, normal inspection Cardiovascular: normal peripheral pulses, regular rate, rhythm Respiratory: chest non-tender, lungs clear, normal breath sounds Gastrointestinal: normal bowel sounds, non tender, soft Back: CVA tenderness (R), CVA tenderness (L) Neurologic/Psychiatric: no motor/sensory deficits, alert, normal mood/affect, oriented x 3 Skin: normal color, warm/dry Progress/Results/Core Measures Suspected Sepsis SIRS Temperature: Pulse: 86 Respiratory Rate: 20 Blood Pressure 160 /71 Mean: 100 Results/Orders Lab Results Laboratory Tests Test 07/01/21 13:46 Range/Units Urine Color YELLOW Urine Clarity CLEAR Urine pH 6.0 5-9 Urine Specific [place] 1.015 L 1.016-1.022 Urine Protein NEGATIVE NEGATIVE Urine Glucose (UA) NEGATIVE NEGATIVE Urine Ketones NEGATIVE NEGATIVE Urine Nitrite NEGATIVE NEGATIVE Urine Bilirubin NEGATIVE NEGATIVE Urine Urobilinogen 0.2 < = 1.0 MG/DL Urine Leukocyte Esterase TRACE H NEGATIVE Urine RBC (Auto) NEGATIVE NEGATIVE Urine RBC NONE /HPF Urine WBC 2-5 /HPF Urine Squamous Epithelial Cells NONE /HPF Urine Crystals NONE /LPF Urine Bacteria MODERATE H /HPF Urine Casts NONE /LPF Urine Mucus NEGATIVE /LPF Urine Culture Indicated YES My Orders Orders - DAVID ROJO Ua Culture If Indicated (07/01/21 14:10) Urine Culture (07/01/21 13:46) Cefdinir Capsule (Omnicef Capsule) (07/01/21 15:08) Phenazopyridine Tablet (Pyridium Tablet) (07/01/21 15:08) Tramadol Tablet (Ultram Tablet) (07/01/21 15:12) Vital Signs/I&O 07/01/21 07/01/21 07/01/21 13:47 15:18 15:26 Temp 36.1 36.1 36.1 Pulse 86 85 Resp 20 20 B/P (MAP) 160/71 (100) 152/79 Pulse Ox 100 100 O2 Delivery Room Air Room Air Capillary Refill : Less Than 3 Seconds Blood Pressure Mean: 100 Departure Impression Primary Impression: UTI (urinary tract infection) Qualified Codes: N30.00 - Acute cystitis without hematuria Disposition: HOME, SELF-CARE Condition: Improved Departure-Patient Inst. Decision time for Depature: 15:00 Referrals: SUSHILA GRAVES APRN (PCP/Family) Primary Care Physician Patient Instructions: Urinary Tract Infection, Adult (DC) Add. Discharge Instructions: Take antibiotics as prescribed. Use the Pyridium as needed for urinary spasms. Take Tylenol 650 mg every 8 hours as needed for pain or fever. Increase water intake, 16 ounces every 2 hours while awake. Drink 1 cup of diet cranberry juice daily or eat 1 cup of fresh blueberries. Follow-up with your primary care provider or walk-in care at [facility] if symptoms are not improving or worsen. Return to the emergency department for new, urgent healthcare needs. All discharge instructions reviewed with patient and/or family. Voiced under standing. Scripts Phenazopyridine HCl (Pyridium) 100 Mg Tablet 100 MG PO Q8H PRN for SPASMS, #6 TAB 0 Refills Prov: DAVID ROJO 07/01/21 Cefdinir (Cefdinir) 300 Mg Capsule 300 MG PO BID, #14 CAP 0 Refills Prov: DAVID ROJO 07/01/21 DAVID ROJO Jul 01, 2021 15:12
[2021-07-01 15:26] VITALS: BP 152/79
== END 2021-07-01 15:25 | disposition home or self-care (01) ==
LOC: EDUNIT# 12:56 → ER 12:58
DX: N39.0 Urinary tract infection, site not specified (principal); I10 Essential (primary) hypertension; E11.9 Type 2 diabetes mellitus without complications; F32.9 Major depressive disorder, single episode, unspecified; F41.9 Anxiety disorder, unspecified; Z79.84 Long term (current) use of oral hypoglycemic drugs; Z79.899 Other long term (current) drug therapy
CPT/HCPCS: 81000; 87077; 87088; 87186; 99283

== ENCOUNTER 2021-09-14 18:14 | Emergency (ER) | payer OTHER ==
[~2021-09-14 18:14] MED LIST changes: -CITA40TA11; +CITA40TA13; +CYCL10TA25; +CYCL10TA25 PO; -CYCL10TA9; -CYCL10TA9 PO; -DULO60CA6 PO; +DULO60CA7 PO; +PHEN-639 PO
[2021-09-14] MEDS ORDERED: HYDROcodone/APAP 5 MG/325 MG (LORTAB) TAB PO ONE (19:30)
--- NOTE | 2021-09-14 19:47 | Diagnostic Imaging Report ---
EXAMINATION: Right rib radiographs, 3 views. COMPARISON: None. HISTORY: 51-year-old female, right rib pain. FINDINGS: There is no identified right-sided rib fracture. The right lung appears clear. There are degenerative changes of the spine. There are right upper quadrant and epigastric surgical clips. IMPRESSION: No identified right-sided rib fracture. Dictated by: Dictated on workstation # [id number]
--- NOTE | 2021-09-14 19:55 | ED General ---
General Chief Complaint: Chest Wall Stated Complaint: R SIDE RIB PAIN/R EAR PAIN Nursing Triage Note: Patient presented to the ER tonight with complaints of right sided rib pain, ear pain and jaw pain. 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 Patient states this was approximately 3-4 days ago. 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 She now has pain with breathing, reaching, and coughing. It appears musculoskeletal in nature. The skin is not sensitive to touch and she has no rashes. Symptoms are worse today than they have been in the past 2 days. She also reports right ear and facial pain as well as a headache at work earlier today. She noticed some dried blood on a Q-t ip from her ear earlier as well. She took some Tylenol allergy and sinus as well as some plain Tylenol over the past couple days to treat the pain. Her primary care provider is Brook Desai at [facility] in [place]. She does not take NSAIDs due to a prior gastric perforation. Allergies and Home Medications Allergies Coded Allergies: NSAIDS (Non-Steroidal Anti-Inflamma (Verified Adverse Reaction, Unknown, 12/15/18) UNABLE TO TAKE DUE TO GASTRIC SURG Patient Home Medication List Home Medication List Reviewed: Yes Alprazolam (Xanax) 0.5 Mg Tablet, 0.5 MG PO HS Prescribed by: DOMINGA RUTLEDGE on 02/11/21 0925 Amoxicillin (Amoxicillin) 500 Mg Capsule, 1,000 MG PO BID Prescribed by: SONAL BLOCK on 09/14/21 210 Ascorbic Acid (Vitamin C) 500 Mg Capsule, 500 MG PO DAILY, (Reported) Entered as Reported by: DEWEY MEDEL on 02/10/21 1200 Cefdinir (Cefdinir) 300 Mg Capsule, 300 MG PO BID Prescribed by: DOMINGA RUTLEDGE on 02/11/21 0718 Cefdinir (Cefdinir) 300 Mg Capsule, 300 MG PO BID Prescribed by: DAVID ROJO on 07/01/21 1511 Cyanocobalamin (Cyanocobalamin Injection) 1,000 Mcg/Ml Inj, 1 ML INJ MONTHLY, (Reported) Entered as Reported by: DEWEY MEDEL on 02/10/21 1200 Cyanocobalamin (Vitamin B-12) (Vitamin B-12) 50 Mcg Tablet, 50 MCG PO DAILY, (Reported) Entered as Reported by: DEWEY MEDEL on 02/10/21 1200 Cyclobenzaprine HCl (Cyclobenzaprine HCl) 10 Mg Tablet, 10 MG PO TID, (Reported) Entered as Reported by: ELSY CONCEPCION on 09/26/19 1209 Duloxetine HCl (Duloxetine HCl) 30 Mg Capsule.dr, 30 MG PO BID, (Reported) Entered as Reported by: SAUNDRA VACA on 02/09/21 2354 Famotidine (Acid Lanolin Plant Operator (FAMOTIDINE)) 20 Mg Tablet, 20 MG PO BID, (Reported) Entered as Reported by: DEWEY MEDEL on 02/10/21 1200 Hydrocodone/Acetaminophen (Hydrocodone-Acetamin 5-325 mg) 1 Each Tablet, 1 TAB PO Q4H PRN for PAIN-MODERATE (5-7) Prescribed by: DOMINGA RUTLEDGE on 02/11/21 0925 Hydrocodone/Acetaminophen (Hydrocodone-Acetamin 5-325 mg) 1 Each Tablet, 1 TAB PO Q4H PRN for PAIN-MODERATE (5-7) Prescribed by: SONAL BLOCK on 09/14/21 2108 Meclizine HCl (Meclizine HCl) 25 Mg Tablet, 25 MG PO TID Prescribed by: JEANNINE CLARKE on 02/28/21 1614 Metformin HCl (Metformin HCl) 1,000 Mg Tablet, 1,000 MG PO BID, (Reported) Entered as Reported by: ELSY CONCEPCION on 09/26/19 1203 Multivit-Minerals/Folic Acid (Multivitamin Gummies) 200 Mcg Tab.chew, 200 MCG PO DAILY, (Reported) Entered as Reported by: DEWEY MEDEL on 02/10/21 1200 Ondansetron HCl (Ondansetron HCl) 4 Mg Tablet, 4 MG PO TID PRN for NAUSEA/VOMITING-1ST LINE, (Reported) Entered as Reported by: FANTA MATAMOROS on 06/30/19 1134 Pantoprazole Sodium (Pantoprazole Sodium) 40 Mg Tablet.dr, 40 MG PO DAILY, (Reported) Entered as Reported by: ELSY CONCEPCION on 09/26/19 1203 Phenazopyridine HCl (Pyridium) 100 Mg Tablet, 100 MG PO Q8H PRN for SPASMS Prescribed by: DAVID ROJO on 07/01/21 1511 Ropinirole HCl (Ropinirole HCl) 2 Mg Tablet, 2 MG PO HS, (Reported) Entered as Reported by: DEWEY MEDEL on 02/10/21 1200 Sennosides/Docusate Sodium (Senna S Tablet) 1 Each Tablet, 1 EACH PO DAILY PRN for STOOL SOFTENER, (Reported) Entered as Reported by: DEWEY MEDEL on 02/10/21 1200 Sertraline HCl (Sertraline HCl) 100 Mg Tablet, 100 MG PO HS, (Reported) Entered as Reported by: FANTA MATAMOROS on 06/30/19 1134 Sucralfate (Sucralfate) 1 Gm Tablet, 1 GM PO QID, (Reported) Entered as Reported by: DEWEY MEDEL on 02/10/21 1200 Topiramate (Topiramate) 25 Mg Tablet, 25 MG PO BID, (Reported) Entered as Reported by: DEWEY MEDEL on 02/10/21 1200 Review of Systems Review of Systems Constitutional: no symptoms reported EENTM: no symptoms reported Respiratory: see HPI Cardiovascular: no symptoms reported Gastrointestinal: no symptoms reported Genitourinary: no symptoms reported : No Musculoskeletal: see HPI Skin: no symptoms reported Psychiatric/Neurological: See HPI Hematologic/Lymphatic: No Symptoms Reported Immunological/Allergic: no symptoms reported Past Jjzmgmq-Bthoum-Pusxua Hx Patient Social History Tobacco Use?: No Substance use?: No Alcohol Use?: No Immunizations Up To Date Tetanus Booster (TDap): Unknown PED Vaccines UTD: Yes First/Initial COVID19 Vaccinat: 05/21/21 Second COVID19 Vaccination Geovany: 05/21/21 Third COVID19 Vaccination Date: 05/21/21 Seasonal Allergies Seasonal Allergies: Yes Past Medical History Surgery/Hospitalization HX: GB, Appendix, carpel tunnel, foot surg., gastric bypass, hyst. D&C Surgeries: Yes (D&C x5 [id number], EGD and colonoscopy, ABDOMINOPLASTY) Abdominal, Appendectomy, Gallbladder, Hysterectomy, Oophorectomy, Orthopedic Respiratory: No Currently Using CPAP: No Currently Using BIPAP: No Cardiac: Yes Hypertension Neurological: Yes (OTC tylenol for migraines) Headaches /Migraines Reproductive Disorders: No Female Reproductive Disorders: Polycystic Ovarian Dis PHYSICIAN NEONATOLOGY History: Hysterectomy Sexually Transmitted Disease: No HIV/AIDS: No Genitourinary: Yes Kidney Infection, UTI (peds) Gastrointestinal: No (gall bladder removal in ) Hemorrhoids Musculoskeletal: No Fibromyalgia Endocrine: Yes Diabetes, Non-Insulin dep HEENT: No Loss of Vision: Denies Hearing Impairment: Denies Cancer: No Psychosocial: Yes Anxiety, Depression Integumentary: No Blood Disorders: No Adverse Reaction/Blood Tranf: No Family Medical History Arthritis 19 FATHER 19 MOTHER Cataracts 19 FATHER 19 MOTHER Completed stroke Deafness or hearing loss 19 FATHER 19 MOTHER Diabetes mellitus 19 FATHER 19 MOTHER Fibrocystic disease of breast 19 MOTHER Headache disorder 19 FATHER Hypercholesterolemia 19 FATHER 19 MOTHER Hypertension 19 FATHER 19 MOTHER Respiratory disorder 19 FATHER Thyroid disease 19 MOTHER Visual disorder 19 FATHER 19 MOTHER No Pertinent Family Hx PAST SURGICAL HISTORY: -CHOLECYSTECTOMY -APPENDECTOMY -ESSURE PROCEDURE FOR STERILIZATION -HYSTERECTOMY/BSO -ADÁN-EN-Y GASTRIC BYPASS -ABDOMINOPLASTY -SURGERY FOR PERFORATED GASTRIC ULCER- -D&C X 5 -EGD'S/COLONOSCOPIES--COLONSCOPY 12/2018, EGD 10/03/19 -SURGERY FOR BONE SPUR Physical Exam Vital Signs Vital Signs - First Documented Capillary Refill : Less Than 3 Seconds Height, Weight, BMI Height: 5'5.00" Weight: 200lbs. 0.0oz. [id number]; 29.00 BMI Method:Stated General Appearance: WD/WN, Mild Distress HEENT: PERRL/EOMI, TMs Normal, Normal ENT Inspection, Pharynx Normal Neck: Normal Inspection Respiratory: Lungs Clear, No Accessory Muscle Use, No Respiratory Distress, Decreased Breath Sounds (Diminished in the right base), Other (Splinting respirations. Tenderness to palpation over the right posterior lower ribs. No tenderness below the ribs. Skin is normal in this area and skin is not tender to light touch.) Cardiovascular: Regular Rate, Rhythm, No Edema, No Murmur Gastrointestinal: Non Tender, Soft Extremity: Normal Inspection, No Pedal Edema Neurologic/Psychiatric: Alert, Oriented x3, No Motor/Sensory Deficits, Normal Mood/Affect, cosmetic manager II-XII Norm as Tested Skin: Normal Color, Warm/Dry; No Rash Progress/Results/Core Measures Suspected Sepsis SIRS Temperature: Pulse: 94 Respiratory Rate: 18 Blood Pressure 154 /76 Mean: 102 Results/Orders My Orders Orders - SONAL LALA MD Ribs, Right 2-3 Views (09/14/21 18:27) Chest Pa/Lat (2 View) (09/14/21 19:28) Hydrocodone/Apap 5/325 Tablet (Lortab 5 (09/14/21 19:30) Rx-Hydrocodone/Apap 5-325 Mg (Rx-Vicodin (09/14/21 21:15) Amoxicillin Capsule (Polymox Capsule) (09/14/21 21:03) Medications Given in ED Current Medications Medications Dose Ordered Sig/Lidya Route Start Time Stop Time Status Last Admin Dose Admin Acetaminophen/ Hydrocodone Bitart 1 ea Q4H PRN PO 09/14/21 21:15 09/14/21 21:16 DC 09/14/21 21:09 1 EA Vital Signs/I&O 09/14/21 09/14/21 09/14/21 19:16 19:16 21:15 Temp 35.2 35.2 35.2 Pulse 94 94 94 Resp 18 18 18 B/P (MAP) 154/76 154/76 (102) 154/76 Pulse Ox 98 98 98 O2 Delivery Room Air Room Air Room Air Capillary Refill : Less Than 3 Seconds Blood Pressure Mean: 102 Progress Note : Time: 19:54 Progress Note Patient was seen and examined. The chest wall pain seems to be pleuritic or musculoskeletal in nature. Oxygen saturation was 99%. Pain seemed to be present only on deep palpation but not with light touch. No rash evident to suggest shingles. Patient had a notable weakened 3rd pressman on the right which she states is chronic and unchanged. She sees a neurologist in 2 days for this prob em. I found no abnormalities on evaluation of the ear and face. She denied any dental pain associated with this facial discomfort. She later stated she did have some deep pain when biting down. Skin on the face was not tender to light touch and no rash was noted there either. Hydrocodone was ordered for pain. Diagnostic Imaging Diagonstic Imaging: Xray Plain Films/CT/US/NM/MRI: chest Comments X-ray right ribs viewed by me and report reviewed. See report below: NAME: ALLISON BRANNON [facility] REC#: [id number] PT STATUS: REG ER : 1970 PHYSICIAN: SONAL LALA MD ADMIT DATE: 09/14/21/ER Draft Date of Exam:09/14/21 RIBS, RIGHT 2-3 VIEWS EXAMINATION: Right rib radiographs, 3 views. COMPARISON: None. HISTORY: 51-year-old female, right rib pain. FINDINGS: There is no identified right-sided rib fracture. The right lung appears clear. There are degenerative changes of the spine. There are right upper quadrant and epigastric surgical clips. IMPRESSION: No identified right-sided rib fracture. Dictated on workstation # [id number] Dict: 09/14/211943 Trans: 09/14/211946 PJE [id number] Interpreted by: GONZALO PEREZ MD Diagonstic Imaging: Xray Plain Films/CT/US/NM/MRI: chest Comments Chest x-rays viewed by me and report reviewed. See report below: NAME: ALLISON BRANNON [facility] REC#: [id number] PT STATUS: REG ER : 1970 PHYSICIAN: SONAL LALA MD ADMIT DATE: 09/14/21/ER Signed Date of Exam:09/14/21 CHEST PA/LAT (2 VIEW) EXAMINATION: Chest (PA and lateral). CLINICAL INDICATION: 51-year-old female, shortness of breath. Chest wall pain. COMPARISON: June 29, 2019. FINDINGS: Heart size and mediastinal contours are unchanged. There is no identified pneumothorax. There is no pleural effusion. There is no identified focal airspace consolidation. There are right upper quadrant surgical clips. IMPRESSION: No identified acute cardiopulmonary abnormality. Dictated by: Dictated on workstation # [id number] Dict: 09/14/211955 Trans: 09/14/212016 PJE [id number] Interpreted by: GONZALO PEREZ MD Electronically signed by: GONZALO PEREZ MD 12/26/21 2017 Departure Impression Primary Impression: Chest wall pain Additional Impression: Right facial pain Disposition: 01 HOME, SELF-CARE Condition: Improved Departure-Patient Inst. Decision time for Depature: 21:05 Referrals: BROOK DESAI APRN (PCP/Family) Primary Care Physician Patient Instructions: Chest Pain That Is Not Caused by the Heart (DC) Add. Discharge Instructions: Use hydrocodone as prescribed for chest wall pain. For more mild pain you may use acetaminophen (Tylenol). The prescribed hydrocodone contains acetaminophen, so please be careful not to exceed more than 1000 mg of acetaminophen in 6 hours. Monitor for development of rash as this could represent shingles. Call or return to care if you notice a rash developing. Your facial pain could be related to a deep dental root infection. Please complete antibiotics as prescribed and follow-up with a dentist as soon as possible. Please discuss these issues with your neurologist at the consultation appointment you have on Wednesday. Call with questions or concerns, and return to the ER if you have worsening symptoms. Despite having pain with inspiration, please exercise deep breathing often. All discharge instructions reviewed with patient and/or family. Voiced u nderstanding. Scripts Amoxicillin (Amoxicillin) 500 Mg Capsule 1000 MG PO BID, #40 CAP 0 Refills Prov: SONAL LALA MD 09/14/21 Hydrocodone/Acetaminophen (Hydrocodone-Acetamin 5-325 mg) 1 Each Tablet 1 TAB PO Q4H PRN for PAIN-MODERATE (5-7), #10 TAB Prov: SONAL LALA MD 09/14/21 Copy Copies To 1: CHRIS STARR JOSHUA T MD Sep 14, 2021 19:55
--- NOTE | 2021-09-14 20:06 | Diagnostic Imaging Report ---
EXAMINATION: Chest (PA and lateral). CLINICAL INDICATION: 51-year-old female, shortness of breath. Chest wall pain. COMPARISON: June 29, 2019. FINDINGS: Heart size and mediastinal contours are unchanged. There is no identified pneumothorax. There is no pleural effusion. There is no identified focal airspace consolidation. There are right upper quadrant surgical clips. IMPRESSION: No identified acute cardiopulmonary abnormality. Dictated by: Dictated on workstation # [id number]
[2021-09-14] MEDS ORDERED: AMOXICILLIN 500 MG (POLYMOX) CAP PO STA (21:03)
[2021-09-14] MEDS ORDERED: AMOX500C2 PO (21:08)
[2021-09-14] MEDS ORDERED: ACHD5005 PO (21:08)
[2021-09-14 21:15] VITALS: BP 154/76
== END 2021-09-14 21:16 | disposition home or self-care (01) ==
LOC: EDUNIT# 18:14 → ER 18:16
DX: R07.89 Other chest pain (principal); G43.909 Migraine, unspecified, not intractable, without status migrainosus; I10 Essential (primary) hypertension; E11.9 Type 2 diabetes mellitus without complications; F41.9 Anxiety disorder, unspecified; F32.9 Major depressive disorder, single episode, unspecified; M79.7 Fibromyalgia; Z88.6 Allergy status to analgesic agent; Z79.4 Long term (current) use of insulin; Z79.84 Long term (current) use of oral hypoglycemic drugs; Z79.899 Other long term (current) drug therapy
CPT/HCPCS: 71046; 71100

== ENCOUNTER 2021-09-16 05:39 | Outpatient (RCR) | payer OTHER ==
[~2021-09-16] VITALS: Ht 165 cm; Wt 82.0 kg
[~2021-09-16 05:39] MED LIST changes: +AMOX500C2 PO
[2021-09-17] MEDS ORDERED: DULO60CA7 PO (10:31)
== END 2021-09-17 13:03 | disposition home or self-care (01) ==
LOC: PREOP 05:39
PROVIDERS: ATTEND Surgery
DX: Z01.818 Encounter for other preprocedural examination (principal)

== ENCOUNTER 2021-09-23 11:49 | Day surgery (SDC) | payer OTHER ==
[~2021-09-23] VITALS: Ht 165 cm; Wt 82.0 kg
[2021-09-23] MEDS ORDERED: LACTATED RINGERS 1,000 ML IV STA (11:50)
[2021-09-23] MEDS ORDERED: HURRICAINE EXT TUBE (BENZOCAINE) XX PRN (12:00)
[2021-09-23] MEDS ORDERED: proPOfol 200 MG/20 ML (DIPRIVAN) VIAL IV ONE ×2 (12:09→12:34)
[2021-09-23 12:15] VITALS: BP 138/58
--- NOTE | 2021-09-23 12:26 | Progress Note-Pre Operative ---
Pre-Operative Progress Note H&P Reviewed The H&P was reviewed, patient examined and no changes noted. Date Seen by Provider: Sep 23, 2021 Time Seen by Provider: 12:25 Date H&P Reviewed: Sep 23, 2021 Time H&P Reviewed: 12:25 Pre-Operative Diagnosis: n/v dysphagia ROBYN POWERS DO Sep 23, 2021 12:26
[2021-09-23 12:45] VITALS: BP 134/66
--- NOTE | 2021-09-23 12:46 | Progress Note-Post Operative ---
Post-Operative Progess Note Surgeon (s)/Paralegal Instructor (s) Surgeon ROBYN POWERS DO Paralegal Instructor: na Pre-Operative Diagnosis n/v dysphagia Post-Operative Diagnosis Gj anastamosis narrowing Procedure & Operative Findings Date of Procedure 09/23/21 Procedure Performed/Findings egj c biopsy gastric pouch and dilation of GJ anastamosis to 11mm Anesthesia Type per lsat instructor Estimated Blood Loss Estimated blood loss (mL): none Specimens/Packing Specimens Removed gastric pouch ROBYN POWERS DO Sep 23, 2021 12:46
--- NOTE | 2021-09-23 12:48 | Discharge Inst-Simple/Standard ---
Discharge Inst-Standard Patient Instructions/Follow Up Plan of Care/Instructions/FU: 2 weeks Brandon Activity as Tolerated: Yes Discharge Diet: Regular Diet (small frequent meals) ROBYN POWERS DO Sep 23, 2021 12:48
[2021-09-23 12:50] VITALS: BP 126/60
[2021-09-23 13:15] VITALS: BP 118/59
[2021-09-23 13:23] VITALS: BP 118/59
--- NOTE | 2021-09-23 13:52 | Anesthesia-General Post-Op ---
MAC Patient Condition Mental Status/LOC: Same as Preop Cardiovascular: Satisfactory Nausea/Vomiting: Absent Respiratory: Satisfactory Pain: Controlled Complications: Absent Post Op Complications Complications None Follow Up Care/Instructions Patient Instructions None needed. Anesthesiology Discharge Order Discharge Order Patient is doing well, no complaints, stable vital signs, no apparent adverse anesthesia problems. No complications reported per nursing. SATYA LA CRNA Sep 23, 2021 13:52
--- NOTE | 2021-09-23 17:26 | OPERATIVE REPORT ---
DATE OF SERVICE: 09/23/2021 PREOPERATIVE DIAGNOSES: Nausea, vomiting, dysphagia. POSTOPERATIVE DIAGNOSIS: GJ anastomosis narrowing. PROCEDURE: EGJ with biopsy of gastric pouch and dilatation of gastrojejunostomy anastomosis to 11 mm. SURGEON: Robyn Taylor DO ANESTHESIA: Per THERMAL SPRAY OPERATOR. ESTIMATED BLOOD LOSS: None. COMPLICATIONS: None. INDICATIONS: The patient is a 51-year-old female who has been having nausea, vomiting, dysphagia. She has a history of gastric bypass. She understands risks and benefits of procedure, wishes to proceed. Consent was signed in the chart. DESCRIPTION OF PROCEDURE: The patient was taken to the endoscopy suite, placed in left lateral recumbent position. Timeout was performed. Scope was inserted in the mouth, down the esophagus and into the gastric pouch. The gastrojejunostomy anastomosis appears slightly narrowed. Scope was able to be passed through the jejunum. Jejunal limb appeared normal. No polyps, masses or ulcerations. Scope was slowly retracted back into the gastric pouch. Biopsy of the gastric pouch was obtained. A balloon was inserted first taken to 10 mm in diameter. This was let down. The balloon was then taken down to 11 mm and then taken down. Small amount of bleeding present. The balloon was then taken down completely and withdrawn. Scope was then slowly retracted back until completely removed, noting no other pathology. The patient tolerated procedure well without any complications. She was taken to recovery room in stable condition. RECOMMENDATIONS: The patient will see how her symptoms do. We will follow up on biopsy results. Continue current medications. The patient may need further dilatation. CC: Brook Desai -- requested, unable to deliver. Job ID: [id number] DocumentID: [id number] Dictated Date: 09/23/2021 12:53:14 Business Technology Architect Date: 09/23/2021 17:25:55 Dictated By: ROBYN TAYLOR DO
== END 2021-09-23 13:35 | disposition home or self-care (01) ==
LOC: ENDO 11:49
PROVIDERS: ATTEND Surgery
DX: K91.89 Other postprocedural complications and disorders of digestive system (principal); E11.9 Type 2 diabetes mellitus without complications; F41.9 Anxiety disorder, unspecified; Z79.891 Long term (current) use of opiate analgesic; Z79.84 Long term (current) use of oral hypoglycemic drugs; Z98.84 Bariatric surgery status; Z79.899 Other long term (current) drug therapy
CPT/HCPCS: 88305

== ENCOUNTER → 2021-10-24 | Outpatient (CLI) | payer OTHER ==
[~2021-10-24] MED LIST changes: +BARIUM for suspension 96% w/w (Vanilla Silq Medium Density) PO ONE; +BARIUM for suspension 98% w/w (Vanilla Silq High Density) PO ONE
--- NOTE | 2021-10-24 14:24 | Diagnostic Imaging Report ---
INDICATION: Prior history of gastric pouch surgery. Patient complains of food getting stuck in the mid throat. Patient did have recent endoscopy with balloon dilatation at the gastric pouch jejunostomy anastomosis. TECHNIQUE: Patient ingested effervescent crystals as well as thin and thick barium, and imaging of the esophagus and upper abdomen was performed in multiple obliquities. 1.6 minutes of fluoroscopic time was utilized. FINDINGS: Preliminary radiograph of the chest is unremarkable. The esophagus has a smooth contour. No mass or stricture is seen. No hiatal hernia or gastroesophageal reflux was demonstrated. There are postop changes from gastric pouch surgery. There does appear to be some mild narrowing at the gastrojejunostomy anastomosis, but there is free flow of barium through the anastomosis into the proximal small bowel loops. IMPRESSION: 1. Unremarkable esophagram. 2. Postop changes from gastric surgery. There is some mild narrowing at the gastrojejunostomy anastomosis; however, no obstruction is identified. Dictated by: Dictated on workstation # [id number]
== END ==
LOC: RAD 11:00
PROVIDERS: ATTEND Surgery
DX: R13.10 Dysphagia, unspecified (principal); Z98.890 Other specified postprocedural states; Z98.0 Intestinal bypass and anastomosis status
CPT/HCPCS: 74220

== ENCOUNTER 2021-11-14 05:30 | Outpatient (RCR) | payer OTHER ==
[~2021-11-14] VITALS: Ht 165.1 cm; Wt 82.0 kg
== END 2021-11-14 13:49 | disposition home or self-care (01) ==
LOC: PREOP 05:30
PROVIDERS: ATTEND Surgery
DX: Z01.818 Encounter for other preprocedural examination (principal); R13.10 Dysphagia, unspecified

== ENCOUNTER → 2021-11-14 | Outpatient (CLI) | payer OTHER ==
[~2021-11-14] MED LIST changes: -BARIUM for suspension 96% w/w (Vanilla Silq Medium Density) PO ONE; -BARIUM for suspension 98% w/w (Vanilla Silq High Density) PO ONE
== END ==
LOC: LABNPT 06:46
PROVIDERS: ATTEND Surgery
DX: Z20.822 Contact with and (suspected) exposure to COVID-19 (principal)
CPT/HCPCS: 87636

== ENCOUNTER 2021-11-18 07:36 | Day surgery (SDC) | payer OTHER ==
[~2021-11-18] VITALS: Ht 165.1 cm; Wt 82.0 kg
[2021-11-18] MEDS ORDERED: HURRICAINE EXT TUBE (BENZOCAINE) XX PRN (07:45)
[2021-11-18 07:50] VITALS: BP 134/77
[2021-11-18] MEDS ORDERED: LACTATED RINGERS 1,000 ML IV ONE (07:52)
--- NOTE | 2021-11-18 08:09 | Progress Note-Pre Operative ---
Pre-Operative Progress Note H&P Reviewed The H&P was reviewed, patient examined and no changes noted. Date Seen by Provider: Nov 18, 2021 Time Seen by Provider: 08:08 Date H&P Reviewed: Nov 18, 2021 Time H&P Reviewed: 08:08 Pre-Operative Diagnosis: dysphagia, gj stricture ROBYN POWERS DO Nov 18, 2021 08:09
[2021-11-18] MEDS ORDERED: MIDAZOLAM 2 MG/2 ML (VERSED) VIAL ONE (08:13)
[2021-11-18] MEDS ORDERED: proPOfol 200 MG/20 ML (DIPRIVAN) VIAL IV ONE ×2 (08:13→08:35)
[2021-11-18] MEDS ORDERED: HURRICAINE EXT TUBE (BENZOCAINE) ONE (08:19)
[2021-11-18 08:40] VITALS: BP 138/77
--- NOTE | 2021-11-18 08:43 | Progress Note-Post Operative ---
Post-Operative Progess Note Surgeon (s)/Small Engine Mechanic (s) Surgeon ROBYN POWERS DO Small Engine Mechanic: na Pre-Operative Diagnosis dysphagia, gj stricture Post-Operative Diagnosis GJ stricure Procedure & Operative Findings Date of Procedure 11/18/21 Procedure Performed/Findings EGJ with dilatation of gj stricture to 12 mm Anesthesia Type per tactical air control party manager Estimated Blood Loss Estimated blood loss (mL): none Specimens/Packing Specimens Removed none ROBYN POWERS DO Nov 18, 2021 08:43
[2021-11-18 08:45] VITALS: BP 126/72
[2021-11-18] MEDS ORDERED: LACTATED RINGERS 1,000 ML IV SCH (08:45)
--- NOTE | 2021-11-18 08:47 | Discharge Inst-Simple/Standard ---
Discharge Inst-Standard Patient Instructions/Follow Up Plan of Care/Instructions/FU: 2 weeks Brandon Activity as Tolerated: Yes Discharge Diet: Regular Diet ROBYN POWERS DO Nov 18, 2021 08:47
[2021-11-18 08:50] VITALS: BP 129/71
[2021-11-18 09:10] VITALS: BP 135/88
[2021-11-18 09:14] VITALS: BP 135/88
--- NOTE | 2021-11-18 11:50 | Anesthesia-General Post-Op ---
MAC Patient Condition Mental Status/LOC: Same as Preop Cardiovascular: Satisfactory Nausea/Vomiting: Absent Respiratory: Satisfactory Pain: Controlled Complications: Absent Post Op Complications Complications None Follow Up Care/Instructions Patient Instructions None needed. Anesthesiology Discharge Order Discharge Order Patient is doing well, no complaints, stable vital signs, no apparent adverse anesthesia problems. No complications reported per nursing. OSCAR GAO CRNA Nov 18, 2021 11:50
--- NOTE | 2021-11-18 18:08 | OPERATIVE REPORT ---
DATE OF SERVICE: 11/18/2021 PREOPERATIVE DIAGNOSIS: Dysphagia, GJ stricture. POSTOPERATIVE DIAGNOSIS: GJ stricture. PROCEDURE: EGJ with dilatation to 12 mm of GJ stricture. SURGEON: Robyn Taylor DO ANESTHESIA: Per MANAGER OF FINANCIAL REPORTING. ESTIMATED BLOOD LOSS: None. COMPLICATIONS: None. INDICATIONS: The patient is a 51-year-old female with a history of gastric bypass. She has a GJ stricture. She has had it previously dilated to 11 mm. The patient is here for reevaluation and further dilatation. She understands risks and benefits and wishes to proceed. Consent was signed in the chart. DESCRIPTION OF PROCEDURE: The patient was taken to the endoscopy suite, placed in left lateral recumbent position. Timeout was performed. Scope was inserted in the mouth, down the esophagus into the gastric pouch visualizing the GJ stricture. Scope was able to be passed through this area into the jejunum. No polyps, masses or ulcerations. Scope was slowly retracted back into the gastric pouch. A dilator was then advanced through the stricture was taken up to 10 mm. The patient tolerated procedure well. The balloon was then deflated. The area was reexamined. The balloon was then taken up to 11 mm, which began to notice it being a little bit tighter. The balloon was then deflated. The area was inspected. The balloon was then taken up to a 12 mm and then held for approximately 1 minute. The balloon was then deflated. The patient was a little bit slightly uncomfortable at this point, even with sedation. No evidence of any trauma to the area. It did dilate nicely. The balloon was removed. The scope was then slowly retracted back until completely removed, noting no other pathology. The patient tolerated the procedure well without any complications, taken to recovery room in stable condition. RECOMMENDATIONS: The patient will continue on current medications. We will possibly need further dilatation and continue to try to increase the diameter if she is symptomatic. The patient will follow up in 2 weeks. CC: Brook Desai, nurse practitioner - requested, unable to deliver. Job ID: [id number] DocumentID: [id number] Dictated Date: 11/18/2021 09:15:41 Electric Range Preparer Date: 11/18/2021 18:07:32 Dictated By: ROBYN TAYLOR DO
== END 2021-11-18 09:24 | disposition home or self-care (01) ==
LOC: ENDO 07:36
PROVIDERS: ATTEND Surgery
DX: K91.89 Other postprocedural complications and disorders of digestive system (principal); K31.89 Other diseases of stomach and duodenum; K31.4 Gastric diverticulum; R13.10 Dysphagia, unspecified; Z90.89 Acquired absence of other organs
CPT/HCPCS: 82947

== ENCOUNTER 2022-01-12 13:38 | Emergency (ER) | payer OTHER ==
[~2022-01-12] VITALS: Ht 165.1 cm; Wt 77.1 kg
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
[2022-01-12 14:55] LABS: BASOPHILS % (AUTO) 0 % (0-10); EOSINOPHILS # (AUTO) 0.1 10^3/uL (0.0-0.3); EOSINOPHILS % (AUTO) 1 % (0-10); HEMATOCRIT 34 % (35-52); HEMOGLOBIN 11.1 g/dL (11.5-16.0); LYMPHOCYTES # (AUTO) 1.5 10^3/uL (1.0-4.0); LYMPHOCYTES % (AUTO) 25 % (12-44); MEAN CORPUSCULAR HEMOGLOBIN 29 pg (25-34); MEAN CORPUSCULAR HGB CONC 33 g/dL (32-36); MEAN CORPUSCULAR VOLUME 89 fL (80-99); MEAN PLATELET VOLUME 8.8 fL (9.0-12.2); MONOCYTES # (AUTO) 0.4 10^3/uL (0.0-1.0); MONOCYTES % (AUTO) 6 % (0-12); NEUTROPHILS # (AUTO) 4.2 10^3/uL (1.8-7.8); NEUTROPHILS % (AUTO) 68 % (42-75); PLATELET COUNT 284 10^3/uL (130-400); WHITE BLOOD COUNT 6.1 10^3/uL (4.3-11.0)
[2022-01-12 15:08] LABS: BILIRUBIN,URINE NEGATIVE (NEGATIVE); CLARITY,URINE CLEAR; COLOR,URINE YELLOW; GLUCOSE, URINE (UA) NEGATIVE (NEGATIVE); KETONES,URINE NEGATIVE (NEGATIVE); LEUKOCYTE ESTERASE ,URINE TRACE (NEGATIVE); NITRITE,URINE NEGATIVE (NEGATIVE); PH,URINE 5.5 (5-9); PROTEIN,URINE NEGATIVE (NEGATIVE)
[2022-01-12 15:10] LABS: ALBUMIN 3.7 GM/DL (3.2-4.5); POTASSIUM 4.1 MMOL/L (3.6-5.0)
[2022-01-12 15:11] LABS: CALCIUM 8.8 MG/DL (8.5-10.1)
[2022-01-12 15:12] LABS: TOTAL PROTEIN 6.3 GM/DL (6.4-8.2)
[2022-01-12 15:14] LABS: BILIRUBIN,TOTAL 0.2 MG/DL (0.1-1.0)
[2022-01-12 15:16] LABS: CREATININE SERUM 0.8 MG/DL (0.60-1.30)
[2022-01-12 15:16] LABS: BACTERIA,URINE NEGATIVE /HPF; WBC,URINE 0-2 /HPF
[2022-01-12] MEDS ORDERED: CEPH500T PO (15:32)
[2022-01-12] MEDS ORDERED: HYDROcodone/APAP 5 MG/325 MG (LORTAB) TAB PO ONE (15:45)
[2022-01-12 16:05] VITALS: BP 142/79
== END 2022-01-12 16:05 | disposition home or self-care (01) ==
LOC: EDUNIT# 13:38 → ER 13:40
DX: R53.1 Weakness (principal); E11.9 Type 2 diabetes mellitus without complications; Z20.822 Contact with and (suspected) exposure to COVID-19; Z79.84 Long term (current) use of oral hypoglycemic drugs
CPT/HCPCS: 36415; 80053; 81000; 82550; 85025; 87636; 99283

== ENCOUNTER 2023-05-12 05:36 | Outpatient (CLI) | payer OTHER ==
[~2023-05-12] VITALS: Ht 165 cm; Wt 95.7 kg
[2023-05-13] MEDS ORDERED: BACL5TAB PO (11:40)
[2023-05-13] MEDS ORDERED: ATOR20TA66 PO (11:40)
[2023-05-13] MEDS ORDERED: GALC120S SQ (11:40)
[2023-05-13] MEDS ORDERED: PREG50CA65 PO (11:40)
[2023-05-13] MEDS ORDERED: LISI2.5T13 PO (11:40)
[2023-05-13] MEDS ORDERED: BREX2TAB PO (11:40)
[2023-05-13] MEDS ORDERED: DIVA125T32 PO (11:40)
[2023-05-13] MEDS ORDERED: ROPI4TAB21 PO (11:40)
[2023-05-13] MEDS ORDERED: OXYB5TAB13 PO (11:40)
[2023-05-13] MEDS ORDERED: GLIP5TAB26 PO (11:40)
[2023-05-13] MEDS ORDERED: TRZ50T PO (11:40)
[2023-05-13] MEDS ORDERED: HYDR-3584 PO (11:40)
== END 2023-05-13 11:48 | disposition home or self-care (01) ==
LOC: PREOP 05:36
PROVIDERS: ATTEND Surgery
DX: Z01.818 Encounter for other preprocedural examination (principal)

== ENCOUNTER 2023-05-25 08:25 | Day surgery (SDC) | payer OTHER ==
[~2023-05-25] VITALS: Ht 165 cm; Wt 95.7 kg
[~2023-05-25 08:25] MED LIST changes: +ATOR20TA66 PO; +BACL5TAB PO; +BREX2TAB PO; +DIVA125T32 PO; +FAMO-356 PO; -FAMO20TA3 PO; +GALC120S SQ; +GLIP5TAB26 PO; +HYDR-3584 PO; +LISI2.5T13 PO; +OXYB5TAB13 PO; +PREG50CA65 PO; +ROPI0.5T37; +ROPI0.5T37 PO; -ROPI0.5T4; -ROPI0.5T4 PO; -ROPI1TAB PO; +ROPI1TAB46 PO; +ROPI2TAB52; +ROPI2TAB52 PO; -ROPI2TAB6; -ROPI2TAB6 PO; +ROPI4TAB21 PO; +TRZ50T PO
[2023-05-25] MEDS ORDERED: LACTATED RINGERS 1,000 ML 1,000 ML IV STA (08:41)
[2023-05-25] MEDS ORDERED: HURRICAINE EXT TUBE (BENZOCAINE) XX PRN (08:45)
[2023-05-25 08:50] VITALS: BP 119/77
--- NOTE | 2023-05-25 09:13 | Progress Note-Pre Operative ---
Pre-Operative Progress Note Date H&P Reviewed: May 25, 2023 Time H&P Reviewed: 09:13 History & Physical: H&P Reviewed, Patient Examed, No changes noted Pre-Operative Diagnosis: dysphagia and family hx of colon cancer ROBYN OPWERS DO May 25, 2023 09:13
[2023-05-25] MEDS ORDERED: proPOfol INJECTION 200 MG/20 ML VIAL IV ONE (09:52)
[2023-05-25 09:53] VITALS: BP 158/71
--- NOTE | 2023-05-25 09:53 | Progress Note-Post Operative ---
Post-Operative Progess Note Surgeon (s)/Block Saw Operator (s) Surgeon ROBYN POWERS DO Block Saw Operator: na Pre-Operative Diagnosis dysphagia and family hx of colon cancer Post-Operative Diagnosis normal egj normal colonoscopy Procedure & Operative Findings Date of Procedure 05/25/23 Procedure Performed/Findings EGJ with biopsy Colonoscopy Anesthesia Type per TRIMMER AND REINFORCER Estimated Blood Loss Estimated blood loss (mL): none Specimens/Packing Specimens Removed gastric pouch x2 ROBYN POWERS DO May 25, 2023 09:53
[2023-05-25 09:55] VITALS: BP 138/71
--- NOTE | 2023-05-25 09:57 | Discharge Inst-Simple/Standard ---
Discharge Inst-Standard Patient Instructions/Follow Up Plan of Care/Instructions/FU: 2 weeks nick Activity as Tolerated: Yes Discharge Diet: Regular Diet ROBYN POWERS DO May 25, 2023 09:57
[2023-05-25 10:20] VITALS: BP 143/83
--- NOTE | 2023-05-25 13:00 | Anesthesia-General Post-Op ---
MAC Patient Condition Mental Status/LOC: Same as Preop Cardiovascular: Satisfactory Nausea/Vomiting: Absent Respiratory: Satisfactory Pain: Controlled Complications: Absent Post Op Complications Complications None Follow Up Care/Instructions Patient Instructions None needed. Anesthesiology Discharge Order Discharge Order Patient is doing well, no complaints, stable vital signs, no apparent adverse anesthesia problems. No complications reported per nursing. HANSEL SAVAGE CRNA May 25, 2023 13:00
--- NOTE | 2023-05-25 14:35 | OPERATIVE REPORT ---
DATE OF SERVICE: 05/25/2023 PREOPERATIVE DIAGNOSES: Dysphagia and family history of colon cancer. POSTOPERATIVE DIAGNOSIS: Normal esophagogastrojejunoscopy, normal colonoscopy. SURGEON: Robyn Taylor DO ANESTHESIA: Per IN SERVICE EDUCATION TEACHER. ESTIMATED BLOOD LOSS: None. COMPLICATIONS: None. INDICATIONS: The patient is a 53-year-old female with dysphagia symptoms. She has a history of gastric bypass. The patient also has family history of colon cancer. She understands risks and benefits of procedure and wished to proceed. Consent was signed and in chart. DESCRIPTION OF PROCEDURE: The patient was taken to endoscopy suite, placed in left lateral recumbent position. Timeout was performed. Scope was inserted in the mouth, down the esophagus, into the gastric pouch. The anastomosis was normal. Scope was able to be passed through this without difficulty. Jejunum had normal appearance. Scope was slowly retracted back into the gastric pouch. Biopsies of the gastric pouch were obtained. No polyps, masses or ulcerations. No erythematous changes. Scope was slowly retracted back until completely back into the distal esophagus, had normal appearance. Scope was slowly retracted back until completely removed without any other pathology. Digital rectal exam was performed. Slight narrowing of the anus. No palpable polyps, masses or ulcerations. Scope was inserted in the rectum, advanced all the way to the cecum with minimal difficulty. Prep was adequate. Scope was slowly retracted back. No polyps, masses or ulcerations within the cecum, ascending, transverse, descending and sigmoid colon. Once in the rectum, scope was retroflexed noting no other pathology. Scope was returned to its normal position, slowly withdrawn until completely removed. The patient tolerated the procedure well without complications, taken to recovery room in stable condition. RECOMMENDATIONS: The patient will repeat colonoscopy in 5 years. Any issues before that, be seen at that time. Follow up in 2 weeks to discuss pathology results. Job ID: [id number] DocumentID: [id number] Dictated Date: 05/25/2023 09:55:31 Band Master Date: 05/25/2023 14:33:00 Dictated By: ROBYN TAYLOR DO
== END 2023-05-25 10:23 | disposition home or self-care (01) ==
LOC: ENDO 08:25
PROVIDERS: ATTEND Surgery
DX: Z12.11 Encounter for screening for malignant neoplasm of colon (principal); K31.89 Other diseases of stomach and duodenum; R13.10 Dysphagia, unspecified; E66.9 Obesity, unspecified; Z98.84 Bariatric surgery status; Z80.0 Family history of malignant neoplasm of digestive organs; Z68.35 Body mass index [BMI] 35.0-35.9, adult
CPT/HCPCS: 82947; 88305

== ENCOUNTER 2023-05-29 21:55 | Emergency (ER) | payer OTHER ==
[~2023-05-29] VITALS: Ht 162.5 cm; Wt 91.0 kg
[2023-05-29] MEDS ORDERED: fentaNYL INJECTION 100 MCG/2 ML VIAL IVP STA (22:17)
[2023-05-29] MEDS ORDERED: ONDANSETRON INJECTION 4 MG/2 ML (SDV) IVP ONE (22:30)
[2023-05-29] MEDS ORDERED: NS IV 1000 ML 1,000 ML IV SCH ×2 (22:30→23:30)
--- NOTE | 2023-05-29 22:38 | ED Headache ---
General Chief Complaint: Head/Cervical Problems Stated Complaint: HEADACHE Source: patient, old records History of Present Illness Date Seen by Provider: May 29, 2023 Allergies and Home Medications Allergies Coded Allergies: amitriptyline (Unverified Allergy, Unknown, 05/13/23) NSAIDS (Non-Steroidal Anti-Inflamma (Verified Adverse Reaction, Unknown, 12/15/18) UNABLE TO TAKE DUE TO GASTRIC SURG Patient Home Medication List Atorvastatin Calcium (Atorvastatin Calcium) 20 Mg Tablet, 20 MG PO DAILY, (Reported) Entered as Reported by: SHERRIE COURTNEY on 05/13/23 1140 Baclofen (Baclofen) 5 Mg Tablet, 5 MG PO TID, (Reported) Entered as Reported by: SHERRIE COURTNEY on 05/13/23 1140 Brexpiprazole (Rexulti) 2 Mg Tablet, 2 MG PO DAILY, (Reported) Entered as Reported by: SHERRIE COURTNEY on 05/13/23 1140 Cyanocobalamin (Cyanocobalamin Injection) 1,000 Mcg/Ml Inj, 1 ML INJ MONTHLY, (Reported) Entered as Reported by: DEWEY MEDEL on 02/10/21 1200 Divalproex Sodium (Divalproex Sodium) 125 Mg Tablet.dr, 125 MG PO DAILY, (Reported) Entered as Reported by: SHERRIE COURTNEY on 05/13/23 1140 Duloxetine HCl (Cymbalta) 60 Mg Capsule.dr, 60 MG PO DAILY, (Reported) Entered as Reported by: SHERRIE COURTNEY on 09/17/21 1031 Famotidine (Acid Mail List Librarian (FAMOTIDINE)) 20 Mg Tablet, 20 MG PO BID, (Reported) Entered as Reported by: DEWEY MEDEL on 02/10/21 1200 Galcanezumab-Gnlm (Emgality Syringe) 120 Mg/Ml Syringe, 120 MG SQ MONTHLY, (Reported) Entered as Reported by: SHERRIE COURTNEY on 05/13/23 1140 Glipizide (Glipizide ER) 5 Mg Tab.er.24, 5 MG PO DAILY, (Reported) Entered as Reported by: SHERRIE COURTNEY on 05/13/23 1140 Hydroxyzine HCl (Hydroxyzine HCl) 10 Mg Tablet, 10 MG PO TID, (Reported) Entered as Reported by: SHERRIE COURTNEY on 05/13/23 1140 Lisinopril (Lisinopril) 2.5 Mg Tablet, 2.5 MG PO DAILY, (Reported) Entered as Reported by: SHERRIE COURTNEY on 05/13/23 1140 Metformin HCl (Metformin HCl) 1,000 Mg Tablet, 1,000 MG PO BID, (Reported) Entered as Reported by: ELSY CONCEPCION on 09/26/19 1203 Multivit-Minerals/Folic Acid (Multivitamin Gummies) 200 Mcg Tab.chew, 200 MCG PO DAILY, (Reported) Entered as Reported by: DEWEY MEDEL on 02/10/21 1200 Oxybutynin Chloride (Oxybutynin Chloride) 5 Mg Tablet, 5 MG PO DAILY, (Reported) Entered as Reported by: SHERRIE COURTNEY on 05/13/23 1140 Pantoprazole Sodium (Pantoprazole Sodium) 40 Mg Tablet.dr, 40 MG PO DAILY, (Reported) Entered as Reported by: ELSY CONCEPCION on 09/26/19 1203 Pregabalin (Pregabalin) 50 Mg Capsule, 50 MG PO BID, (Reported) Entered as Reported by: SHERRIE COURTNEY on 05/13/23 1140 Ropinirole HCl (Ropinirole HCl) 2 Mg Tablet, 2 MG PO HS, (Reported) Entered as Reported by: DEWEY MEDEL on 02/10/21 1200 Ropinirole HCl (Ropinirole HCl) 4 Mg Tab.er.24h, 4 MG PO DAILY, (Reported) Entered as Reported by: SHERRIE COURTNEY on 05/13/23 1140 Topiramate (Topiramate) 25 Mg Tablet, 25 MG PO BID, (Reported) Entered as Reported by: DEWEY MEDEL on 02/10/21 1200 Trazodone HCl (Trazodone HCl) 50 Mg Tablet, 50 MG PO HS, (Reported) Entered as Reported by: SHERRIE COURTNEY on 05/13/23 1140 Past Qrklthp-Uwdomn-Jombje Hx Immunizations Up To Date Tetanus Booster (TDap): Unknown PED Vaccines UTD: Yes First/Initial COVID19 Vaccinat: 05/21/21 Second COVID19 Vaccination Geovany: 05/21/21 Third COVID19 Vaccination Date: 05/21/21 Seasonal Allergies Seasonal Allergies: Yes Past Medical History Surgery/Hospitalization HX: GB, Appendix, carpel tunnel, foot surg., gastric bypass, hyst. 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 Sexually Transmitted Disease: No HIV/AIDS: No Genitourinary: Yes Kidney Infection, UTI (peds) Gastrointestinal: No (gall bladder removal in , GASTRIC PERFORATION) Hemorrhoids Musculoskeletal: No Fibromyalgia Endocrine: Yes Diabetes, Non-Insulin dep HEENT: No Loss of Vision: Denies Hearing Impairment: Denies Cancer: No Psychosocial: Yes Anxiety, Depression Integumentary: No Blood Disorders: No Adverse Reaction/Blood Tranf: No Family Medical History Arthritis 19 FATHER 19 MOTHER Cataracts 19 FATHER 19 MOTHER Colon cancer Completed stroke Deafness or hearing loss 19 FATHER 19 MOTHER Diabetes mellitus 19 FATHER 19 MOTHER Fibrocystic disease of breast 19 MOTHER Headache disorder 19 FATHER Hypercholesterolemia 19 FATHER 19 MOTHER Hypertension 19 FATHER 19 MOTHER Respiratory disorder 19 FATHER Thyroid disease 19 MOTHER Visual disorder 19 FATHER 19 MOTHER No Pertinent Family Hx PAST SURGICAL HISTORY: -CHOLECYSTECTOMY -APPENDECTOMY -ESSURE PROCEDURE FOR STERILIZATION -HYSTERECTOMY/BSO -ADÁN-EN-Y GASTRIC BYPASS -ABDOMINOPLASTY -SURGERY FOR PERFORATED GASTRIC ULCER- -D&C X 5 -EGD'S/COLONOSCOPIES--COLONSCOPY 12/2018, EGD 10/03/19 -SURGERY FOR BONE SPUR Physical Exam Vital Signs Vital Signs - First Documented 05/29/23 22:09 Temp 35.6 Pulse 79 Resp 18 B/P (MAP) 134/68 (90) Pulse Ox 100 Capillary Refill : Height, Weight, BMI Height: 5'5.00" Weight: 200lbs. 0.0oz. 90.699908op; 35.15 BMI Method:Stated Progress/Results/Core Measures Results/Orders Lab Results Laboratory Tests Test 05/29/23 22:34 05/29/23 22:37 Range/Units Influenza Type A (RT-PCR) Not Detected Not Detecte Influenza Type B (RT-PCR) Not Detected Not Detecte SARS-CoV-2 RNA (RT-PCR) Not Detected Not Detecte White Blood Count 7.9 4.3-11.0 10^3/uL Red Blood Count 3.49 L 3.80-5.11 10^6/uL Hemoglobin 9.8 L 11.5-16.0 g/dL Hematocrit 30 L 35-52 % Mean Corpuscular Volume 86 80-99 fL Mean Corpuscular Hemoglobin 28 25-34 pg Mean Corpuscular Hemoglobin Concent 33 32-36 g/dL Red Cell Distribution Width 13.5 10.0-14.5 % Platelet Count 269 130-400 10^3/uL Mean Platelet Volume 9.1 9.0-12.2 fL Immature Granulocyte % (Auto) 0 % Neutrophils (%) (Auto) 67 42-75 % Lymphocytes (%) (Auto) 23 12-44 % Monocytes (%) (Auto) 8 0-12 % Eosinophils (%) (Auto) 2 0-10 % Basophils (%) (Auto) 0 0-10 % Neutrophils # (Auto) 5.3 1.8-7.8 10^3/uL Lymphocytes # (Auto) 1.8 1.0-4.0 10^3/uL Monocytes # (Auto) 0.6 0.0-1.0 10^3/uL Eosinophils # (Auto) 0.2 0.0-0.3 10^3/uL Basophils # (Auto) 0.0 0.0-0.1 10^3/uL Immature Granulocyte # (Auto) 0.0 0.0-0.1 10^3/uL Erythrocyte Sedimentation Rate 23 0-30 MM/HR Sodium Level 129 L 135-145 MMOL/L Potassium Level 4.3 3.6-5.0 MMOL/L Chloride Level 99 98-107 MMOL/L Carbon Dioxide Level 20 L 21-32 MMOL/L Anion Gap 10 5-14 MMOL/L Blood Urea Nitrogen 8 7-18 MG/DL Creatinine 0.72 0.60-1.30 MG/DL Estimat Glomerular Filtration Rate 100 BUN/Creatinine Ratio 11 Glucose Level 133 H 70-105 MG/DL Calcium Level 8.6 8.5-10.1 MG/DL Corrected Calcium 9.2 8.5-10.1 MG/DL Magnesium Level 1.4 L 1.6-2.4 MG/DL Total Bilirubin 0.3 0.1-1.0 MG/DL Aspartate Amino Transf (AST/SGOT) 14 5-34 U/L Alanine Aminotransferase (ALT/SGPT) 16 0-55 U/L Alkaline Phosphatase 81 40-136 U/L C-Reactive Protein High Sensitivity 1.44 H 0.00-0.50 MG/DL Total Protein 6.0 L 6.4-8.2 GM/DL Albumin 3.3 3.2-4.5 GM/DL My Orders Orders - LUNA OSORIO DO Ed Iv/Invasive Line Start (05/29/23 22:17) Monitor-Rhythm Ecg Trace Only (05/29/23 22:17) Ct Head Wo-R/O Stroke (05/29/23 22:17) Cbc With Automated Diff (05/29/23 22:17) Comprehensive Metabolic Panel (05/29/23 22:17) Hs C Reactive Protein (05/29/23 22:17) Magnesium (05/29/23 22:17) Erythrocyte Sedimentation Rate (05/29/23 22:17) Ed Iv/Invasive Line Start (05/29/23 22:17) Ns Iv 1000 Ml (Ns Iv 1000 Ml) (05/29/23 22:30) Ondansetron Injection (Ondansetron Inj (05/29/23 22:30) Fentanyl Injection (Fentanyl Injection (05/29/23 22:17) Covid 19 Inhouse Test (05/29/23 22:43) Influenza A And B By Pcr (05/29/23 22:43) Magnesium 1 Gm/100 Ml Ivpb (Magnesium 1 (05/29/23 23:30) Ed Iv/Invasive Line Start (05/29/23 23:22) Ns Iv 1000 Ml (Ns Iv 1000 Ml) (05/29/23 23:30) Fentanyl Injection (Fentanyl Injection (05/30/23 00:30) Medications Given in ED Current Medications Medications Dose Ordered Sig/Lidya Route Start Time Stop Time Status Last Admin Dose Admin Fentanyl Citrate 50 mcg ONCE ONCE IVP 05/30/23 00:30 05/30/23 00:31 DC 05/30/23 00:37 50 MCG Ondansetron HCl 4 mg ONCE ONCE IVP 05/29/23 22:30 05/29/23 22:31 DC 05/29/23 22:29 4 MG Vital Signs/I&O 05/29/23 22:09 Temp 35.6 Pulse 79 Resp 18 B/P (MAP) 134/68 (90) Pulse Ox 100 Departure Impression Primary Impression: Headache Additional Impressions: Hypomagnesemia Hyponatremia Disposition: HOME, SELF-CARE Condition: Improved Departure-Patient Inst. Decision time for Depature: 01:40 Referrals: LEATHA ROBLES MD (PCP/Family) Primary Care Physician Patient Instructions: Headache, Adult (DC), Low Magnesium Level (DC), Hyponatremia (DC) Add. Discharge Instructions: CONTINUE ALL MEDICATIONS PRESCRIBED FOLLOW UP WITH YOUR DR ON WEDNESDAY IF NO BETTER, RETURN TO ER IF WORSE All discharge instructions reviewed with patient and/or family. Voiced understanding. LUNA OSORIO DO May 29, 2023 22:38
[2023-05-29 22:43] LABS: BASOPHILS % (AUTO) 0 % (0-10); EOSINOPHILS # (AUTO) 0.2 10^3/uL (0.0-0.3); EOSINOPHILS % (AUTO) 2 % (0-10); HEMATOCRIT 30 % (35-52); HEMOGLOBIN 9.8 g/dL (11.5-16.0); LYMPHOCYTES # (AUTO) 1.8 10^3/uL (1.0-4.0); LYMPHOCYTES % (AUTO) 23 % (12-44); MEAN CORPUSCULAR HEMOGLOBIN 28 pg (25-34); MEAN CORPUSCULAR HGB CONC 33 g/dL (32-36); MEAN CORPUSCULAR VOLUME 86 fL (80-99); MEAN PLATELET VOLUME 9.1 fL (9.0-12.2); MONOCYTES # (AUTO) 0.6 10^3/uL (0.0-1.0); MONOCYTES % (AUTO) 8 % (0-12); NEUTROPHILS # (AUTO) 5.3 10^3/uL (1.8-7.8); NEUTROPHILS % (AUTO) 67 % (42-75); PLATELET COUNT 269 10^3/uL (130-400); WHITE BLOOD COUNT 7.9 10^3/uL (4.3-11.0)
[2023-05-29 23:11] LABS: ERYTHROCYTE SEDIMENTATION RATE 23 MM/HR (0-30)
[2023-05-29 23:17] LABS: ALBUMIN 3.3 GM/DL (3.2-4.5); BILIRUBIN,TOTAL 0.3 MG/DL (0.1-1.0); CALCIUM 8.6 MG/DL (8.5-10.1); CREATININE SERUM 0.72 MG/DL (0.60-1.30); MAGNESIUM 1.4 MG/DL (1.6-2.4); POTASSIUM 4.3 MMOL/L (3.6-5.0)
[2023-05-29] MEDS: MAGNESIUM 1 GM/100 ML IVPB 100 ML IV SCH (23:42)
[2023-05-30] MEDS ORDERED: fentaNYL INJECTION 100 MCG/2 ML VIAL IVP ONE (00:30)
[2023-05-30] MEDS: MAGNESIUM 1 GM/100 ML IVPB 100 ML IV SCH (00:34)
[2023-05-30 01:52] VITALS: BP 124/73
--- NOTE | 2023-05-30 06:21 | Diagnostic Imaging Report ---
PROCEDURE: CT head wo r/o stroke. TECHNIQUE: Multiple contiguous axial images were obtained through the brain without the use of intravenous contrast. Auto Exposure Controls were utilized during the CT exam to meet ALARA standards for radiation dose reduction. INDICATION: Severe headache, altered mental status. COMPARISON: 02/28/2021. DISCUSSION: Air-fluid levels noted within the bilateral maxillary sinuses consistent with acute sinusitis. No acute intracranial hemorrhage, mass, midline shift, or hydrocephalus. The ventricles and sulci are normal size and configuration for age. The orbits, mastoid air cells, and calvarium are unremarkable. IMPRESSION: 1. Acute bilateral maxillary sinusitis. 2. No acute intracranial abnormality identified. 3. Agree with preliminary report. Dictated by: Dictated on workstation # [id number]
== END 2023-05-30 02:00 | disposition home or self-care (01) ==
LOC: EDUNIT# 21:55 → ER 21:58
DX: E87.1 Hypo-osmolality and hyponatremia (principal); E83.42 Hypomagnesemia; Z20.822 Contact with and (suspected) exposure to COVID-19
CPT/HCPCS: 36415; 70450; 80053; 83735; 85025; 85652; 86141; 87636

== ENCOUNTER 2023-07-28 13:59 | Emergency (ER) | payer OTHER ==
[~2023-07-28 13:59] MED LIST changes: -MECL-149 PO; +MECL-291 PO; -OXYB5TAB13 PO; +OXYB5TAB14 PO; -PREG50CA65 PO; +PREG50CA66 PO
[2023-07-28] MEDS ORDERED: morphine INJ 10 MG/ML 1ML (SYR OR VIAL) IVP STA (14:15)
[2023-07-28] MEDS ORDERED: ONDANSETRON INJECTION 4 MG/2 ML (SDV) IVP ONE (14:15)
[2023-07-28 14:23] LABS: BASOPHILS % (AUTO) 0 % (0-10); EOSINOPHILS # (AUTO) 0.1 10^3/uL (0.0-0.3); EOSINOPHILS % (AUTO) 1 % (0-10); HEMATOCRIT 33 % (35-52); HEMOGLOBIN 10.5 g/dL (11.5-16.0); LYMPHOCYTES # (AUTO) 1.6 10^3/uL (1.0-4.0); LYMPHOCYTES % (AUTO) 23 % (12-44); MEAN CORPUSCULAR HEMOGLOBIN 27 pg (25-34); MEAN CORPUSCULAR HGB CONC 32 g/dL (32-36); MEAN CORPUSCULAR VOLUME 85 fL (80-99); MEAN PLATELET VOLUME 9.2 fL (9.0-12.2); MONOCYTES # (AUTO) 0.5 10^3/uL (0.0-1.0); MONOCYTES % (AUTO) 8 % (0-12); NEUTROPHILS # (AUTO) 4.8 10^3/uL (1.8-7.8); NEUTROPHILS % (AUTO) 68 % (42-75); PLATELET COUNT 329 10^3/uL (130-400); WHITE BLOOD COUNT 7.1 10^3/uL (4.3-11.0)
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
[2023-07-28] MEDS ORDERED: NS 100 ML (IVPB) BAG IV ONE (14:30)
[2023-07-28] MEDS ORDERED: HOLD METFORMIN - RECEIVED CONTRAST 20 ML VIAL IV SCH (14:30)
[2023-07-28] MEDS ORDERED: IOHEXOL 350 MG/ML 100 ML (OMNIPAQUE 350) VIAL IV ONE (14:30)
[2023-07-28 14:31] LABS: ALBUMIN 3.8 GM/DL (3.2-4.5); POTASSIUM 4.5 MMOL/L (3.6-5.0)
[2023-07-28 14:32] LABS: CALCIUM 9.3 MG/DL (8.5-10.1)
[2023-07-28 14:33] LABS: TOTAL PROTEIN 6.9 GM/DL (6.4-8.2)
[2023-07-28 14:34] LABS: INR 0.9 (0.8-1.4); PROTHROMBIN TIME PATIENT 12.5 SEC (12.2-14.7)
[2023-07-28 14:35] LABS: BILIRUBIN,TOTAL 0.4 MG/DL (0.1-1.0)
[2023-07-28 14:37] LABS: CREATININE SERUM 0.86 MG/DL (0.60-1.30)
[2023-07-28 14:40] LABS: MAGNESIUM 1.6 MG/DL (1.6-2.4)
--- NOTE | 2023-07-28 14:46 | Diagnostic Imaging Report ---
PROCEDURE: CT chest, abdomen, and pelvis with contrast. TECHNIQUE: Multiple contiguous axial images were obtained through the chest, abdomen, and pelvis after the administration of intravenous contrast. Auto Exposure Controls were utilized during the CT exam to meet ALARA standards for radiation dose reduction. INDICATION: Right upper quadrant and right chest wall pain. Compared with abdominal pelvic CT 02/09/2021. CHEST: No rib or chest wall fracture identified. There is no pneumothorax. No findings of pneumonia or pulmonary edema. No lung mass. No thoracic lymphadenopathy. No findings of aspiration. There does appear to be a small hiatal hernia above the postsurgical EG junction, this is unchanged from prior. No effusion or pneumothorax. No lung mass or thoracic adenopathy. The aorta is nonaneurysmal, patent and nonacute. There are some scattered coronary artery vascular calcifications most notably at the LAD. The gallbladder is surgically absent. There is no pathological bile duct dilatation. The spleen, adrenals and pancreas unremarkable. Kidneys are unobstructed. There is aortoiliac and mesenteric atherosclerotic vascular calcifications. No visible thrombus, aneurysm, dissection or end organ ischemia. There is no intra or extraperitoneal hemorrhage. No abscess, hematoma or acute fluid collection. No focal acute inflammatory changes. No adenopathy or mass. IMPRESSION: No acute-appearing abnormality at CT chest, abdomen and pelvis. Stable postoperative findings. Dictated by: Dictated on workstation # [id number]
[2023-07-28] MEDS ORDERED: ACHD5005 PO (15:06)
[2023-07-28 15:10] VITALS: BP 149/80
== END 2023-07-28 15:12 | disposition home or self-care (01) ==
LOC: EDUNIT# 13:59 → ER 14:01
DX: S20.211A Contusion of right front wall of thorax, initial encounter (principal); R10.11 Right upper quadrant pain; Z90.49 Acquired absence of other specified parts of digestive tract; Z98.84 Bariatric surgery status; V49.40XA Driver injured in collision with unspecified motor vehicles in traffic accident, initial encounter; Y92.410 Unspecified street and highway as the place of occurrence of the external cause
CPT/HCPCS: 36415; 71260; 74177; 80053; 83690; 83735; 85025; 85610; 85730; 93005; 93041; 96374; 96375